=== PATIENT | male | born 1960 | race Caucasian/White ===

== ENCOUNTER 2018-02-10 01:40 | Emergency (ER) | payer SELFPAY ==
[2018-02-10] MEDS ORDERED: METHYLPREDNISOLONE 125 MG INJ ONE (01:52)
[2018-02-10] MEDS ORDERED: IPRATROPIUM BROM 0.5MG/2.5ML ONE ×2 (01:52→02:02)
[2018-02-10] MEDS ORDERED: ALBUTEROL 2.5 MG/3 ML NEB SOL ONE (01:52)
[2018-02-10] MEDS ORDERED: predniSONE 20 MG TAB ONE (02:02)
--- NOTE | 2018-02-10 04:52 | EDPHYS ---
Physician Documentation [facility] Name: Iron Haynes Age: 58 yrs Sex: Male : 1960 Arrival Date: 02/10/2018 Time: 01:40 Bed 20 Private MD: ED Physician Zohaib Gomez HPI: 02/10 04:46 This 58 yrs old Male presents to ER via Ambulatory with complaints of gs Breathing Difficulty. 04:46 The patient has shortness of breath at rest. Onset: The symptoms/episode began/occurred gs 2 day(s) ago, and became worse and became persistent. Duration: The symptoms are continuous, and are unchanged since they started. The patient's shortness of breath has no apparent modifying factors. Associated signs and symptoms: Pertinent positives: non-productive cough, Pertinent negatives: fever, hemoptysis. Severity of symptoms: At their worst the symptoms were moderate in the emergency department the symptoms are unchanged. The patient has experienced similar episodes in the past, chronically. ran out of albuterol. Historical: - Allergies: 01:52 Codeine; mg2 - Home Meds: 01:52 albuterol sulfate Oral [Active]; mg2 - PMHx: 01:52 COPD; mg2 - PSHx: 01:52 Hernia repair; mg2 - Immunization history:: Flu vaccine status is unknown. - Social history:: Smoking status: Patient/guardian denies using tobacco, Patient/guardian denies using alcohol, street drugs, IV drugs. - Ebola Screening: : No symptoms or risks identified at this time. ROS: 04:46 All other systems are negative. gs Exam: 04:46 Head/Face: Normocephalic, atraumatic. Eyes: Pupils equal round and reactive to light, gs extra-ocular motions intact. Lids and lashes normal. Conjunctiva and sclera are non-icteric and not injected. Cornea within normal limits. Periorbital areas with no swelling, redness, or edema. ENT: Nares patent. No nasal discharge, no septal abnormalities noted. Tympanic membranes are normal and external auditory canals are clear. Oropharynx with no redness, swelling, or masses, exudates, or evidence of obstruction, uvula midline. Mucous membranes moist. Neck: Trachea midline, no thyromegaly or masses palpated, and no cervical lymphadenopathy. Supple, full range of motion without nuchal rigidity, or vertebral point tenderness. No Meningismus. Chest/axilla: Normal chest wall appearance and motion. Nontender with no deformity. No lesions are appreciated. Cardiovascular: Regular rate and rhythm with a normal S1 and S2. No gallops, murmurs, or rubs. Normal PMI, no JVD. No pulse deficits. Abdomen/GI: Soft, non-tender, with normal bowel sounds. No distension or tympany. No guarding or rebound. No evidence of tenderness throughout. Back: No spinal tenderness. No costovertebral tenderness. Full range of motion. Skin: Warm, dry with normal turgor. Normal color with no rashes, no lesions, and no evidence of cellulitis. MS/ Extremity: Pulses equal, no cyanosis. Neurovascular intact. Full, normal range of motion. Neuro: Awake and alert, GCS 15, oriented to person, place, time, and situation. Cranial nerves II-XII grossly intact. Motor strength 5/5 in all extremities. Sensory grossly intact. Cerebellar exam normal. Normal gait. 04:46 Constitutional: The patient appears alert, awake. 04:46 Respiratory: mild respiratory distress is noted, Respirations: normal, no retractions, Breath sounds: rhonchi, that are mild, are heard diffusely, wheezing: that is moderate, is heard diffusely. Vital Signs: 01:53 BP 126 / 87; Pulse 87; Resp 30; Temp 97.6; Pulse Ox 95% on R/A; Weight 72.57 kg; Height mg2 6 ft. 0 in. (182.88 cm); Pain 0/10; 02:30 BP 116 / 74; Pulse 83; Resp 20; Pulse Ox 99% on Nebulizer Mask; lp1 03:30 BP 120 / 78; Pulse 87; Resp 20; Pulse Ox 96% on R/A; lp1 01:53 Body Mass Index 21.70 (72.57 kg, 182.88 cm) mg2 MDM: 01:50 Patient medically screened. gs 04:46 Differential diagnosis: Chronic Obstructive Pulmonary Disease pneumonia, Pneumothorax. Data reviewed: vital signs, nurses notes, radiologic studies. Test interpretation: by ED physician or midlevel provider: plain radiologic studies. Response to treatment: the patient's symptoms have markedly improved after treatment, and as a result, I will discharge patient, pt left before rx and instruction. 10/14 02:29 Order name: Chest Pa And Lat (2 Views) EDCO Administered Medications: 01:54 Drug: Albuterol - atroVENT (3:1) (2.5 mg - 0.5 mg) 3 ml Route: Nebulizer; mg2 03:30 Follow up: Response: Marked relief of symptoms lp1 01:54 Drug: AtroVENT Aerosol 0.5 mg Route: Inhalation; mg2 01:54 Drug: predniSONE 40 mg Route: PO; mg2 03:30 Follow up: Response: No adverse reaction lp1 Disposition: 02/10/18 04:52 Discharged to Home. Impression: Chronic obstructive pulmonary disease with (acute) exacerbation. - Condition is Stable. - Discharge Instructions: Chronic Obstructive Pulmonary Disease. - Prescriptions for Prednisone 20 mg Oral Tablet - take 1 tablet by ORAL route once daily for 5 days; 5 tablet. Albuterol Sulfate 2.5 mg /3 mL (0.083 %) Inhalation Solution for Nebulization - inhale 1 unit by NEBULIZATION route every 8 hours As needed; 1 box. Albuterol Sulfate 90 mcg/actuation - inhale 1-2 puff by INHALATION route every 4-6 hours; 1 Inhaler. - Medication Reconciliation Form, Thank You Letter, Antibiotic Education, Prescription Opioid Use form. - Follow up: Emergency Department; When: 1 - 2 days; Reason: Re-evaluation by your physician. - Problem is an acute exacerbation. - Symptoms have improved. Signatures: Dispatcher [employer] [facility] Ewa Markham RN RN lp1 Zohaib Gomez MD MD Joel Murray RN RN mg2 Corrections: (The following items were deleted from the chart) 03:25 03:18 Chest Pa And Lat (2 Views)+[email or web address] ordered. [facility] EDCO 05:04 04:52 02/10/2018 04:52 Discharged to Home. Impression: Chronic obstructive pulmonary lp1 disease with (acute) exacerbation. Condition is Stable. Forms are Medication Reconciliation Form, Thank You Letter, Antibiotic Education, Prescription Opioid Use. Follow up: Emergency Department; When: 1 - 2 days; Reason: Re-evaluation by your physician. Problem is an acute exacerbation. Symptoms have improved. gs
--- NOTE | 2018-02-10 04:52 | ER ---
Nurse's Notes [facility] Name: Iron Haynes Age: 58 yrs Sex: Male : 1960 Arrival Date: 02/10/2018 Time: 01:40 Bed 20 Private MD: Diagnosis: Chronic obstructive pulmonary disease with (acute) exacerbation Presentation: 02/10 01:50 Presenting complaint: Patient states: he has cough for 2 weeks and shortness of breath mg2 today. he ran out of medicine for nebulization at home. known COPD but not on home oxygen. Transition of care: patient was not received from another setting of care. Onset of symptoms was January 2018. Risk Assessment: Do you want to hurt yourself or someone else? Patient reports no desire to harm self or others. Initial Sepsis Screen: Does the patient meet any 2 criteria? No. Patient's initial sepsis screen is negative. Does the patient have a suspected source of infection? No. Patient's initial sepsis screen is negative. Care prior to arrival: None. 01:50 Method Of Arrival: Ambulatory mg2 01:50 Acuity: EDUARD 2 mg2 Historical: - Allergies: 01:52 Codeine; mg2 - Home Meds: 01:52 albuterol sulfate Oral [Active]; mg2 - PMHx: 01:52 COPD; mg2 - PSHx: 01:52 Hernia repair; mg2 - Immunization history:: Flu vaccine status is unknown. - Social history:: Smoking status: Patient/guardian denies using tobacco, Patient/guardian denies using alcohol, street drugs, IV drugs. - Ebola Screening: : No symptoms or risks identified at this time. Screenin:53 Abuse screen: Denies threats or abuse. Nutritional screening: No deficits noted. mg2 Tuberculosis screening: No symptoms or risk factors identified. Fall Risk None identified. Assessment: 02:33 General: Appears in no apparent distress. Behavior is calm, cooperative, appropriate lp1 for age. Pain: Denies pain. Neuro: Level of Consciousness is awake, alert, obeys commands, Oriented to person, place, time, situation. Cardiovascular: Patient's skin is warm and dry. Respiratory: Reports shortness of breath Airway is patent Respiratory effort is even, labored, Respiratory pattern is regular, Breath sounds with wheezes bilaterally. Onset: The symptoms/episode began/occurred gradually, the patient has moderate shortness of breath. GI: No signs and/or symptoms were reported involving the gastrointestinal system. : No signs and/or symptoms were reported regarding the genitourinary system. EENT: No signs and/or symptoms were reported regarding the EENT system. Derm: Skin is pink, warm \T\ dry. Musculoskeletal: Circulation, motion, and sensation intact. 02:58 Reassessment: Patient is alert, oriented x 3, equal unlabored respirations, skin lp1 warm/dry/pink. Patient states feeling better. Patient states symptoms have improved. 03:58 Reassessment: improvement to wheezing in bilateral lobes Patient states feeling better. lp1 04:45 Reassessment: Patient not in room; Patient left prior to discharge instructions. lp1 Vital Signs: 01:53 BP 126 / 87; Pulse 87; Resp 30; Temp 97.6; Pulse Ox 95% on R/A; Weight 72.57 kg; Height mg2 6 ft. 0 in. (182.88 cm); Pain 0/10; 02:30 BP 116 / 74; Pulse 83; Resp 20; Pulse Ox 99% on Nebulizer Mask; lp1 03:30 BP 120 / 78; Pulse 87; Resp 20; Pulse Ox 96% on R/A; lp1 01:53 Body Mass Index 21.70 (72.57 kg, 182.88 cm) mg2 ED Course: 01:40 Patient arrived in ED. am2 01:45 Zohaib Gomez MD is Attending Physician. gs 01:51 Triage completed. mg2 01:53 Arm band placed on. mg2 01:57 Ewa Markham, RN is Primary Nurse. lp1 02:36 Patient has correct armband on for positive identification. Pulse ox on. NIBP on. lp1 02:46 Chest Pa And Lat (2 Views) In Process Unspecified. EDMS 03:59 No provider procedures requiring assistance completed. Patient did not have IV access lp1 during this emergency room visit. Administered Medications: 01:54 Drug: Albuterol - atroVENT (3:1) (2.5 mg - 0.5 mg) 3 ml Route: Nebulizer; mg2 03:30 Follow up: Response: Marked relief of symptoms lp1 01:54 Drug: AtroVENT Aerosol 0.5 mg Route: Inhalation; mg2 01:54 Drug: predniSONE 40 mg Route: PO; mg2 03:30 Follow up: Response: No adverse reaction lp1 Outcome: 04:52 Discharge ordered by . ani 05:04 Discharged to home lp1 05:04 Condition: good 05:04 Discharge instructions given to Patient left prior to discharge instructions 05:04 Patient left the ED. lp1 Signatures: Dispatcher [employer] Ewa Vazquez RN RN lp1 aMy Garcia am2 Zohaib Gomez MD MD gs Gardose, Michele, RN RN mg2 Corrections: (The following items were deleted from the chart) 02:03 01:53 BP 126 / 87; Pulse 87bpm; Resp 30bpm; Pulse Ox 95% RA; Temp 97.6F; Pain 0/10; mg2 mg2 03:59 02:33 General: Appears in no apparent distress. lp1 lp1
--- NOTE | 2018-02-10 10:32 | RAD REPORT ---
EXAM DESCRIPTION: RAD - Chest Pa And Lat (2 Views) - 02/10/2018 2:48 am CLINICAL HISTORY: COUGH Chest pain. COMPARISON: No comparisons FINDINGS: The lungs are mildly emphysematous but clear. The heart is normal in size. No displaced fr actures. IMPRESSION: Mild COPD.
== END 2018-02-10 05:04 | disposition home or self-care (01) ==
LOC: ER 01:40
DX: J44.1 Chronic obstructive pulmonary disease with (acute) exacerbation (principal); Z88.5 Allergy status to narcotic agent
CPT/HCPCS: 71046; 94640; 99284; J2930; J7512

== ENCOUNTER 2018-03-23 22:44 | Emergency (ER) | payer SELFPAY ==
[2018-03-23] MEDS ORDERED: ALBUTEROL 2.5 MG/3 ML NEB SOL ONE (23:12)
[2018-03-23] MEDS ORDERED: METHYLPREDNISOLONE 125 MG INJ ONE (23:12)
[2018-03-23] MEDS ORDERED: AZITHROMYCIN 500 MG/250 ML BAG ONE (23:13)
[2018-03-23] MEDS ORDERED: LEVALBUTEROL 1.25 MG/3 ML NEB ONE (23:13)
[2018-03-23 23:47] LABS: Absolute Lymphocytes (CBC) 1.6 K/uL (0.7-4.9); Absolute Monocytes 0.5 K/uL (0.1-1.3); Absolute Neutrophil 4.1 K/uL (1.8-8.0); Basophils % 0.3 % (0-1.3); Hematocrit 45.2 % (39.6-49.0); Lymphocytes % 25.4 % (15.3-44.8); MCH 31.5 pg (27.0-35.0); MCV 91.5 fL (80-100); Monocytes % 7.7 % (3.3-12.3); RBC Red Blood Cell Count 4.94 M/uL (4.33-5.43)
[2018-03-23 23:52] LABS: Protime INR 0.97
[2018-03-24 00:02] LABS: ALT/SGPT 18 U/L (12-78); AST/SGOT 13 U/L (15-37); Albumin 3.3 g/dL (3.4-5.0); Alkaline Phosphatase 91 U/L (45-117); BUN Blood Urea Nitrogen 9 mg/dL (7-18); Bicarbonate 29 mmol/L (21-32); Bilirubin Direct 0.1 mg/dL (0-0.2); Bilirubin Total 0.3 mg/dL (0.2-1.0); CKMB Creatine Kinase MB 1.5 ng/mL (0.3-3.6); Creatine Phosphokinase 60 U/L (39-308); Glucose Level 135 mg/dL (74-106); Lipase 124 U/L (73-393); Magnesium 2.4 mg/dL (1.8-2.4); NT PRO-BNP 58 pg/mL (<125); Potassium 4.1 mmol/L (3.5-5.1); Protein, Total 6.5 g/dL (6.4-8.2); Sodium Level 138 mmol/L (136-145); Troponin (Emerg Dept Use Only) < 0.02 ng/mL (0.0-0.045)
[2018-03-24 00:15] LABS: Blood Morphology Comment NOT SEEN (NOT SEEN); Platelet Estimate ADEQ
--- NOTE | 2018-03-24 01:06 | ER ---
Nurse's Notes [facility] Name: Iron Haynes Age: 58 yrs Sex: Male : 1960 Arrival Date: 03/23/2018 Time: 22:45 Bed 15 Private MD: None, None Diagnosis: Chronic obstructive pulmonary disease with acute lower respiratory infection Presentation: 03/23 22:50 Presenting complaint: Patient states: shortness of breath at rest and on exertion since cc3 3 days. Transition of care: patient was not received from another setting of care. Onset of symptoms was March 21, 2018. Risk Assessment: Do you want to hurt yourself or someone else? Patient reports no desire to harm self or others. Initial Sepsis Screen: Does the patient meet any 2 criteria? No. Patient's initial sepsis screen is negative. Does the patient have a suspected source of infection? No. Patient's initial sepsis screen is negative. Care prior to arrival: None. 22:50 Method Of Arrival: Ambulatory cc3 22:50 Acuity: EDUARD 3 cc3 Triage Assessment: 22:50 General: Appears in no apparent distress. uncomfortable, Behavior is calm, cooperative, cc3 appropriate for age. Pain: Denies pain. EENT: No signs and/or symptoms were reported regarding the EENT system. Neuro: Level of Consciousness is awake, alert, obeys commands, Oriented to person, place, time, situation, Appropriate for age. Cardiovascular: Denies chest pain. Respiratory: Reports shortness of breath at rest on exertion since 3 days Onset: The symptoms/episode began/occurred 3 days. GI: Abdomen is round non-distended. : No signs and/or symptoms were reported regarding the genitourinary system. Derm: No signs and/or symptoms reported regarding the dermatologic system. Musculoskeletal: Circulation, motion, and sensation intact. Range of motion: intact in all extremities. Historical: - Allergies: 22:50 Codeine; cc3 - Home Meds: 22:50 albuterol sulfate Oral [Active]; cc3 - PMHx: 22:50 COPD; cc3 - PSHx: 22:50 Hernia repair; cc3 - Immunization history:: Adult Immunizations not up to date. - Social history:: Smoking status: Patient uses tobacco products, unknown amount Patient/guardian denies using alcohol, street drugs, The patient lives with family. - Ebola Screening: : No symptoms or risks identified at this time. - Family history:: No immediate family members are acutely ill. - Hospitalizations: : The patient was recently seen at [facility]. Screenin:30 Abuse screen: Denies threats or abuse. Nutritional screening: No deficits noted. ea Tuberculosis screening: No symptoms or risk factors identified. Fall Risk None identified. Assessment: 23:02 General: Appears uncomfortable, Behavior is calm, cooperative, appropriate for age. ea Pain: Denies pain. Neuro: Level of Consciousness is awake, alert, obeys commands, Oriented to person, place, time, situation. Cardiovascular: Heart tones S1 S2 present Patient's skin is warm and dry. Respiratory: Airway is patent Respiratory effort is even, labored, Respiratory pattern is symmetrical, tachypnea Breath sounds are coarse Breath sounds with wheezes bilaterally. GI: Abdomen is non-distended. Derm: Skin is pink, warm \T\ dry. 03/24 00:00 Reassessment: Patient and/or family updated on plan of care and expected duration. Pain ea level reassessed. Patient is alert, oriented x 3, equal unlabored respirations, skin warm/dry/pink. Patient states symptoms have improved. 01:12 Reassessment: Patient and/or family updated on plan of care and expected duration. Pain ea level reassessed. Patient is alert, oriented x 3, equal unlabored respirations, skin warm/dry/pink. Discharge instructions given to patient, verbalized the understanding of instruction Patient states feeling better. Patient states symptoms have improved. Vital Signs: 03/23 22:50 BP 127 / 90; Pulse 103; Resp 23 S; Temp 97.8(O); Pulse Ox 96% on R/A; Weight 72.57 kg cc3 (R); Height 6 ft. (182.88 cm) (R); 23:00 BP 107 / 79; Pulse 98; Resp 18; Pulse Ox 99% ; ea 03/24 00:50 BP 110 / 80; Pulse 80; Resp 18; Pulse Ox 99% ; ea 03/23 22:50 Body Mass Index 21.70 (72.57 kg, 182.88 cm) cc3 ED Course: 03/23 22:45 Patient arrived in ED. dl4 22:45 None, None is Private Physician. dl4 22:48 Vincenzo Abrams MD is Attending Physician. ma2 22:57 Triage completed. cc3 23:02 Reema Wright, RN is Primary Nurse. ea 23:02 Patient has correct armband on for positive identification. Bed in low position. Call ea light in reach. Side rails up X 1. 23:02 Arm band placed on right wrist. Patient placed in an exam room, on a stretcher, on ea pulse oximetry. 23:20 X-ray completed. Portable x-ray completed in exam room. Patient tolerated procedure sg4 well. 23:21 XRAY CXR (1 view) In Process Unspecified. EDMS 23:30 Inserted saline lock: 22 gauge in right forearm, using aseptic technique. Blood ea collected. 03/24 00:31 EKG done, by ED staff, reviewed by Vincenzo Abrams MD. ds4 01:13 No provider procedures requiring assistance completed. IV discontinued, intact, ea bleeding controlled, No redness/swelling at site. Pressure dressing applied. Administered Medications: 03/23 23:09 Drug: Xopenex 1.25 mg Route: Inhalation; cc3 23:47 Follow up: Response: No adverse reaction; Wheezing diminished ea 23:10 Drug: Albuterol 2.5 mg Route: Inhalation; cc3 23:15 Drug: Zithromax 500 mg Route: IVPB; Infused Over: 1 hrs; Site: right forearm; ea 03/24 00:30 Follow up: Response: No adverse reaction; IV Status: Completed infusion ea 03/23 23:16 Drug: SOLU-Medrol 125 mg Route: IVP; Site: right forearm; ea 23:47 Follow up: Response: No adverse reaction ea Outcome: 03/24 01:05 Discharge ordered by . ma2 01:14 Discharged to home ambulatory. ea 01:14 Condition: improved 01:14 Discharge instructions given to patient, Instructed on discharge instructions, follow up and referral plans. medication usage, Demonstrated understanding of instructions, follow-up care, medications, Prescriptions given X 4. 01:15 Patient left the ED. ea Signatures: Dispatcher [employer] EDMS Castro Diggs ds4 Reema Wright, RN Vincenzo Christy ea, MD MD ma2 Yesenia Anna cc3 Phylicia Stevenson sg4 Leida, Darius dl4
--- NOTE | 2018-03-24 01:06 | EDPHYS ---
Physician Documentation [facility] Name: Iron Haynes Age: 58 yrs Sex: Male : 1960 Arrival Date: 03/23/2018 Time: 22:45 Bed 15 Private MD: None, None ED Physician Vincenzo Abrams HPI: 03/23 22:58 This 58 yrs old Male presents to ER via Ambulatory with complaints of ma2 Shortness Of Breath. 22:58 The patient has shortness of breath at rest. Onset: The symptoms/episode began/occurred ma2 gradually, 3 day(s) ago. Duration: The symptoms are continuous. Associated signs and symptoms: Pertinent positives: productive cough, Pertinent negatives: chest pain, non-productive cough, diaphoresis, fever, hemoptysis, visual changes. Severity of symptoms: At their worst the symptoms were moderate in the emergency department the symptoms. The patient has experienced similar episodes in the past. Historical: - Allergies: 22:50 Codeine; cc3 - Home Meds: 22:50 albuterol sulfate Oral [Active]; cc3 - PMHx: 22:50 COPD; cc3 - PSHx: 22:50 Hernia repair; cc3 - Immunization history:: Adult Immunizations not up to date. - Social history:: Smoking status: Patient uses tobacco products, unknown amount Patient/guardian denies using alcohol, street drugs, The patient lives with family. - Ebola Screening: : No symptoms or risks identified at this time. - Family history:: No immediate family members are acutely ill. - Hospitalizations: : The patient was recently seen at [facility]. ROS: 22:58 Constitutional: Negative for fever, chills, and weight loss, ENT: Negative for injury, ma2 pain, and discharge, Cardiovascular: Negative for chest pain, palpitations, and edema, Back: Negative for injury and pain, MS/Extremity: Negative for injury and deformity. 22:58 Respiratory: Positive for cough, dyspnea on exertion, Negative for hemoptysis, pleurisy, sputum production, acute changes. 22:58 All other systems are negative. Exam: 22:58 Constitutional: This is a well developed, well nourished patient who is awake, alert, ma2 and in no acute distress. Eyes: Pupils equal round and reactive to light, extra-ocular motions intact. Lids and lashes normal. Conjunctiva and sclera are non-icteric and not injected. Cornea within normal limits. Periorbital areas with no swelling, redness, or edema. Neck: Trachea midline, no thyromegaly or masses palpated, and no cervical lymphadenopathy. Supple, full range of motion without nuchal rigidity, or vertebral point tenderness. No Meningismus. Chest/axilla: Normal chest wall appearance and motion. Nontender with no deformity. No lesions are appreciated. Cardiovascular: Regular rate and rhythm with a normal S1 and S2. No gallops, murmurs, or rubs. Normal PMI, no JVD. No pulse deficits. Abdomen/GI: Soft, non-tender, with normal bowel sounds. No distension or tympany. No guarding or rebound. No evidence of tenderness throughout. MS/ Extremity: Pulses equal, no cyanosis. Neurovascular intact. Full, normal range of motion. Neuro: Awake and alert, GCS 15, oriented to person, place, time, and situation. Cranial nerves II-XII grossly intact. Motor strength 5/5 in all extremities. Sensory grossly intact. Cerebellar exam normal. Normal gait. 22:58 Respiratory: mild respiratory distress is noted, Respirations: labored breathing, Breath sounds: wheezing: expiratory is heard diffusely. Vital Signs: 22:50 BP 127 / 90; Pulse 103; Resp 23 S; Temp 97.8(O); Pulse Ox 96% on R/A; Weight 72.57 kg cc3 (R); Height 6 ft. (182.88 cm) (R); 23:00 BP 107 / 79; Pulse 98; Resp 18; Pulse Ox 99% ; ea 03/24 00:50 BP 110 / 80; Pulse 80; Resp 18; Pulse Ox 99% ; ea 03/23 22:50 Body Mass Index 21.70 (72.57 kg, 182.88 cm) cc3 MDM: 03/23 22:48 Patient medically screened. ma2 22:58 Differential diagnosis: Anemia Anxiety Reaction asthma, Bronchitis pneumonia. nm2 03/24 01:04 Data reviewed: vital signs, nurses notes, EKG, radiologic studies. Counseling: I had a ma2 detailed discussion with the patient and/or guardian regarding: the historical points, exam findings, and any diagnostic results supporting the discharge/admit diagnosis, the presence of at least one elevated blood pressure reading (>120/80) during this emergency department visit, the need for outpatient follow up. Response to treatment: the patient's symptoms have resolved after treatment. 03/23 22:58 Order name: BMP; Complete Time: 00:22 2 03/23 22:58 Order name: CBC with Diff; Complete Time: 00:22 ma2 03/23 22:58 Order name: Ckmb; Complete Time: 00:22 ma2 03/23 22:58 Order name: CPK; Complete Time: 00:22 2 03/23 22:58 Order name: Hepatic Function; Complete Time: 00:22 ma2 03/23 22:58 Order name: Lipase; Complete Time: 00:22 ma2 03/23 22:58 Order name: XRAY CXR (1 view) nm03/23 22:58 Order name: Magnesium; Complete Time: 00:22 ma2 03/23 22:58 Order name: NT PRO-BNP; Complete Time: 00:22 ma2 03/23 22:58 Order name: PT-INR; Complete Time: 00:22 ma2 03/23 22:58 Order name: Ptt, Activated; Complete Time: 00:22 ma2 03/23 22:58 Order name: Troponin (emerg Dept Use Only); Complete Time: 00:22 2 03/23 23:51 Order name: Manual Differential; Complete Time: 00:22 EDMS 03/23 22:58 Order name: EKG; Complete Time: 22:59 ma2 03/23 22:58 Order name: Cardiac monitoring; Complete Time: 00:12 ma2 03/23 22:58 Order name: EKG - Nurse/Tech; Complete Time: 00:31 ma2 03/23 22:58 Order name: IV Saline Lock; Complete Time: 00:12 ma2 03/23 22:58 Order name: Labs collected and sent; Complete Time: 00:12 ma2 03/23 22:58 Order name: O2 Per Protocol; Complete Time: 00:12 2 03/23 22:58 Order name: O2 Sat Monitoring; Complete Time: 00:12 ma2 Administered Medications: 03/23 23:09 Drug: Xopenex 1.25 mg Route: Inhalation; cc3 23:47 Follow up: Response: No adverse reaction; Wheezing diminished ea 23:10 Drug: Albuterol 2.5 mg Route: Inhalation; cc3 23:15 Drug: Zithromax 500 mg Route: IVPB; Infused Over: 1 hrs; Site: right forearm; ea 03/24 00:30 Follow up: Response: No adverse reaction; IV Status: Completed infusion ea 03/23 23:16 Drug: SOLU-Medrol 125 mg Route: IVP; Site: right forearm; ea 23:47 Follow up: Response: No adverse reaction ea Disposition: 03/24/18 01:05 Discharged to Home. Impression: Chronic obstructive pulmonary disease with acute lower respiratory infection. - Condition is Stable. - Discharge Instructions: Chronic Obstructive Pulmonary Disease. - Prescriptions for Albuterol Sulfate 2.5 mg /3 mL (0.083 %) Inhalation Solution for Nebulization - inhale 1 unit by NEBULIZATION route every 8 hours As needed; 1 box. Zithromax Z- Piyush 250 mg Oral Tablet - take 1 tablet by ORAL route as directed for 5 days Day 1 - take two (2) tablets one time. Day 2, 3, 4 , 5 take one (1) tablet once daily.; 6 tablet. Prednisone 20 mg Oral Tablet - take 2 tablet by ORAL route once daily for 5 days; 10 tablet. Albuterol Sulfate 90 mcg/actuation - inhale 1-2 puff by INHALATION route every 4-6 hours; 1 Inhaler. - Medication Reconciliation Form, Thank You Letter, Antibiotic Education, Prescription Opioid Use form. - Follow up: Private Physician; When: Tomorrow; Reason: Continuance of care. Signatures: Dispatcher [employer] Reema Lagunas RN RN ea Alzahri, Mohammad, MD MD ma2 Yesenia Anna cc3 Corrections: (The following items were deleted from the chart) 03/24 01:15 01:05 03/24/2018 01:05 Discharged to Home. Impression: Chronic obstructive pulmonary ea disease with acute lower respiratory infection. Condition is Stable. Forms are Medication Reconciliation Form, Thank You Letter, Antibiotic Education, Prescription Opioid Use. Follow up: Private Physician; When: Tomorrow; Reason: Continuance of care. ma2
--- NOTE | 2018-03-24 06:08 | EKG ---
Test Date: 2018-03-24 Test Time: 00:25:41 Primary Care Physician: DINORA MEASUREMENT RESULTS: Intervals: Rate: 90 TN: 142 QRSD: 86 QT: 362 QTc: 442 [place]: P: 80 TN: 142 QRS: 97 T: 61 INTERPRETIVE STATEMENTS: Sinus rhythm with fusion complexes Rightward axis Borderline ECG No previous ECG available for comparison Electronically Signed On 03-24-18 06:07:48 MENTAL HEALTH PROGRAM SPECIALIST by Agus Beckman
--- NOTE | 2018-03-24 13:59 | RAD REPORT ---
EXAM DESCRIPTION: RAD - Chest Single View - 03/23/2018 11:27 pm CLINICAL HISTORY: COPD Chest pain. COMPARISON: Chest Pa And Lat (2 Views) dated 02/10/2018 FINDINGS: Portable technique limits examination quality. The lungs are grossly clear. The heart is normal in size. No displaced fractures. IMPRESSION: No acute intrathoracic process suspected.
== END 2018-03-24 01:15 | disposition home or self-care (01) ==
LOC: ER 22:44
DX: J44.0 Chronic obstructive pulmonary disease with (acute) lower respiratory infection (principal); Z72.0 Tobacco use
CPT/HCPCS: 36415; 71045; 80048; 80076; 82550; 82553; 83690; 83735; 83880; 84484; 85025; 85610; 85730; 93005; 96365; 96375; 99284; J0456; J2930

== ENCOUNTER 2018-04-21 19:14 | Emergency (ER) | payer SELFPAY ==
[2018-04-21] MEDS ORDERED: LEVALBUTEROL 1.25 MG/3 ML NEB ONE ×2 (19:46→21:20)
[2018-04-21] MEDS ORDERED: IPRATROPIUM BROM 0.5MG/2.5ML ONE (19:46)
[2018-04-21] MEDS ORDERED: NA CHLORIDE 0.9% 1,000 ML ONE (19:56)
[2018-04-21] MEDS ORDERED: METHYLPREDNISOLONE 125 MG INJ ONE (19:56)
[2018-04-21 20:13] LABS: Absolute Lymphocytes (CBC) 0.5 K/uL (0.7-4.9); Absolute Monocytes 0.3 K/uL (0.1-1.3); Absolute Neutrophil 8.1 K/uL (1.8-8.0); Basophils % 0.9 % (0-1.3); Hematocrit 43.6 % (39.6-49.0); Lymphocytes % 5.5 % (15.3-44.8); MPV 7.9 fL (7.6-11.3); Monocytes % 3.7 % (3.3-12.3); RBC Red Blood Cell Count 4.76 M/uL (4.33-5.43)
[2018-04-21 20:21] LABS: Protime INR 1.03
[2018-04-21 20:33] LABS: ALT/SGPT 13 U/L (12-78); AST/SGOT 12 U/L (15-37); Albumin 3.6 g/dL (3.4-5.0); Alkaline Phosphatase 97 U/L (45-117); BUN Blood Urea Nitrogen 6 mg/dL (7-18); Bicarbonate 26 mmol/L (21-32); Bilirubin Direct 0.1 mg/dL (0-0.2); Bilirubin Total 0.5 mg/dL (0.2-1.0); Glucose Level 118 mg/dL (74-106); Magnesium 2.2 mg/dL (1.8-2.4); NT PRO-BNP 57 pg/mL (<125); Potassium 4.1 mmol/L (3.5-5.1); Protein, Total 6.9 g/dL (6.4-8.2); Sodium Level 135 mmol/L (136-145); Troponin (Emerg Dept Use Only) < 0.02 ng/mL (0.0-0.045)
--- NOTE | 2018-04-21 20:34 | RAD REPORT ---
EXAM DESCRIPTION: RAD - Chest Single View - 04/21/2018 8:24 pm CLINICAL HISTORY: COPD;Dyspnea Chest pain. COMPARISON: Chest Single View dated 03/23/2018; Chest Pa And Lat (2 Views) dated 02/10/2018 FINDINGS: Portable technique limits examination quality. The lungs are grossly clear. The heart is normal in size. No displaced fractures. IMPRESSION: No acute intrathoracic process suspected.
--- NOTE | 2018-04-21 22:23 | ER ---
Nurse's Notes [facility] Name: Iron Haynes Age: 58 yrs Sex: Male : 1960 Arrival Date: 04/21/2018 Time: 19:15 Bed 4 Private MD: Neo Morales S Diagnosis: Acute exacerbation COPD Presentation: 04/21 19:33 Presenting complaint: Patient states: I have COPD and I am out of my medicine, I have la1 been having very bad SOB for a few hours now. Transition of care: patient was not received from another setting of care. Onset of symptoms was April 21, 2018. Risk Assessment: Do you want to hurt yourself or someone else? Patient reports no desire to harm self or others. Initial Sepsis Screen: Does the patient meet any 2 criteria? No. Patient's initial sepsis screen is negative. Does the patient have a suspected source of infection? No. Patient's initial sepsis screen is negative. Care prior to arrival: None. 19:33 Method Of Arrival: Ambulatory la1 19:33 Acuity: EDUARD 2 la1 Historical: - Allergies: 19:34 Codeine; la1 - PMHx: 19:34 COPD; la1 - Immunization history:: Adult Immunizations up to date. - Social history:: Smoking status: Patient uses tobacco products, denies chronic smoking, but will smoke occasionally. - Ebola Screening: : No symptoms or risks identified at this time. Screenin:42 Abuse screen: Denies threats or abuse. Nutritional screening: No deficits noted. ea Tuberculosis screening: No symptoms or risk factors identified. Fall Risk None identified. Assessment: 19:42 General: Appears uncomfortable, Behavior is calm, cooperative, appropriate for age. ea Pain: Denies pain. Neuro: Level of Consciousness is awake, alert, obeys commands, Oriented to person, place, time, situation. Cardiovascular: Heart tones S1 S2 present. Respiratory: Airway is patent Respiratory effort is labored, Respiratory pattern is tachypnea Breath sounds are coarse bilaterally. Breath sounds with wheezes bilaterally. GI: No signs and/or symptoms were reported involving the gastrointestinal system. : No signs and/or symptoms were reported regarding the genitourinary system. Derm: Skin is dry, Skin is normal, Skin temperature is warm. 19:50 Reassessment: Patient and/or family updated on plan of care and expected duration. Pain ea level reassessed. Respiratory at bedside, pt refused ABG blood draw, physician notified. 19:59 Reassessment: Patient and/or family updated on plan of care and expected duration. Pain ea level reassessed. Patient is alert, oriented x 3, equal unlabored respirations, skin warm/dry/pink. Patient states symptoms have improved. 20:50 Reassessment: Patient and/or family updated on plan of care and expected duration. Pain ea level reassessed. Patient is alert, oriented x 3, equal unlabored respirations, skin warm/dry/pink. Patient states feeling better. Patient states symptoms have improved. 21:57 Reassessment: Patient and/or family updated on plan of care and expected duration. Pain ea level reassessed. Patient is alert, oriented x 3, equal unlabored respirations, skin warm/dry/pink. Patient states feeling better. Patient states symptoms have improved. 22:32 Reassessment: Patient and/or family updated on plan of care and expected duration. Pain ea level reassessed. Patient is alert, oriented x 3, equal unlabored respirations, skin warm/dry/pink. Discharge instruction given to patient, verbalized the understanding of isntruction Patient states feeling better. Patient states symptoms have improved. Vital Signs: 19:34 BP 118 / 71; Pulse 137; Resp 26; Temp 98.6; Pulse Ox 92% on R/A; Weight 68.04 kg; la1 Height 6 ft. 0 in. (182.88 cm); 19:40 BP 124 / 93; Pulse 111; Resp 21; Pulse Ox 96% on Nebulizer Mask; ea 21:47 BP 100 / 66; Pulse 111; Resp 15; Pulse Ox 98% on Nebulizer Mask; ea 22:33 BP 105 / 62; Pulse 100; Resp 19; Temp 98.7; Pulse Ox 99% on R/A; ea 19:34 Body Mass Index 20.34 (68.04 kg, 182.88 cm) la1 ED Course: 19:15 Patient arrived in ED. am2 19:15 Neo Morales MD is Private Physician. am2 19:33 Triage completed. la1 19:34 Arm band placed on left wrist. la1 19:37 Reema Wright, ALMA is Primary Nurse. ea 19:40 Juan Carlos Durant MD is Attending Physician. pkl 19:42 Patient has correct armband on for positive identification. Bed in low position. Call ea light in reach. Side rails up X 1. 19:42 Inserted saline lock: 18 gauge in left antecubital area, using aseptic technique. Blood jd3 collected. placed by [employer]. 20:21 X-ray completed. Portable x-ray completed in exam room. Patient tolerated procedure la2 well. 20:23 XRAY Chest (1 view) In Process Unspecified. EDMS 22:20 Neo Morales MD is Referral Physician. pkl 22:38 IV discontinued, intact, bleeding controlled, No redness/swelling at site. Pressure ea dressing applied. 22:40 No provider procedures requiring assistance completed. ea Administered Medications: 19:40 Drug: Xopenex (3) 1.25 mg Route: Inhalation; fc 19:40 Drug: AtroVENT Aerosol 0.5 mg Route: Inhalation; fc 19:52 Drug: NS 0.9% 1000 ml Route: IV; Rate: 100 ml/hr; Site: left antecubital; jd3 22:42 Follow up: Response: No adverse reaction; IV Status: Completed infusion; IV Intake: ea 300ml 19:52 Drug: SOLU-Medrol 125 mg Route: IVP; Site: left antecubital; jd3 20:59 Follow up: Response: No adverse reaction ea 21:44 Drug: Xopenex 1.25 mg Route: Inhalation; ea 21:59 Follow up: Response: No adverse reaction ea 21:59 Follow up: Response: Marked relief of symptoms ea Intake: 22:42 IV: 300ml; Total: 300ml. ea Outcome: 22:21 Discharge ordered by . pkl 22:41 Discharged to home ambulatory. ea 22:41 Condition: improved 22:41 Discharge instructions given to patient, Instructed on discharge instructions, follow up and referral plans. medication usage, Demonstrated understanding of instructions, follow-up care, medications, Prescriptions given X 2. 22:41 Patient left the ED. ea Signatures: Dispatcher [employer] EDJuan Carlos Zambrano MD MD pkl Chretien, Felicia, RN RN fc Attema, Lee, RN RN la1 May Garcia amReema Day RN RN Sherita Reeves la2 Peterson, Kiran, RN RN jd3
--- NOTE | 2018-04-21 22:23 | EDPHYS ---
Physician Documentation [facility] Name: Iron Haynes Age: 58 yrs Sex: Male : 1960 Arrival Date: 04/21/2018 Time: 19:15 Bed 4 Private MD: Neo Morales S ED Physician Juan Carlos Durant HPI: 04/21 19:44 This 58 yrs old Patient Declined Male presents to ER via Ambulatory with complaints of pkl Breathing Difficulty. 19:44 The patient has shortness of breath at rest. Onset: The symptoms/episode began/occurred pkl yesterday. Patient said he is out of his nebulizer solutions yesterday. Historical: - Allergies: 19:34 Codeine; la1 - PMHx: 19:34 COPD; la1 - Immunization history:: Adult Immunizations up to date. - Social history:: Smoking status: Patient uses tobacco products, denies chronic smoking, but will smoke occasionally. - Ebola Screening: : No symptoms or risks identified at this time. ROS: 19:46 Eyes: Negative for injury, pain, redness, and discharge, ENT: Negative for injury, pkl pain, and discharge, Neck: Negative for injury, pain, and swelling, Cardiovascular: Negative for chest pain, palpitations, and edema. 19:46 Respiratory: Positive for shortness of breath, wheezing. 19:46 Abdomen/GI: Negative for abdominal pain, nausea, vomiting, and diarrhea. 19:46 Back: Negative for acute changes. 19:46 : Negative for urinary symptoms. 19:46 MS/extremity: Negative for acute changes. 19:46 Skin: Negative for rash. 19:46 Neuro: Negative for altered mental status. Exam: 19:46 Head/Face: Normocephalic, atraumatic. Eyes: Pupils equal round and reactive to light, pkl extra-ocular motions intact. Lids and lashes normal. Conjunctiva and sclera are non-icteric and not injected. Cornea within normal limits. Periorbital areas with no swelling, redness, or edema. ENT: Nares patent. No nasal discharge, no septal abnormalities noted. Tympanic membranes are normal and external auditory canals are clear. Oropharynx with no redness, swelling, or masses, exudates, or evidence of obstruction, uvula midline. Mucous membranes moist. Neck: Trachea midline, no thyromegaly or masses palpated, and no cervical lymphadenopathy. Supple, full range of motion without nuchal rigidity, or vertebral point tenderness. No Meningismus. Chest/axilla: Normal chest wall appearance and motion. Nontender with no deformity. No lesions are appreciated. Cardiovascular: Regular rate and rhythm with a normal S1 and S2. No gallops, murmurs, or rubs. Normal PMI, no JVD. No pulse deficits. Abdomen/GI: Soft, non-tender, with normal bowel sounds. No distension or tympany. No guarding or rebound. No evidence of tenderness throughout. 19:46 Respiratory: mild respiratory distress is noted, Respirations: labored breathing, that is mild, Breath sounds: bronchial sounds, that are moderate, are scattered, rhonchi, that are moderate, are scattered. 19:46 Abdomen/GI: Exam negative for acute changes. 19:46 Back: Exam negative for acute changes. 19:46 : Exam negative for acute changes. 19:46 Musculoskeletal/extremity: Exam is negative for acute changes. 19:46 Skin: Exam negative for rash. 19:46 Neuro: Orientation: is normal, Mentation: is normal, Cranial nerves: grossly normal, Motor: is normal. Vital Signs: 19:34 BP 118 / 71; Pulse 137; Resp 26; Temp 98.6; Pulse Ox 92% on R/A; Weight 68.04 kg; la1 Height 6 ft. 0 in. (182.88 cm); 19:40 BP 124 / 93; Pulse 111; Resp 21; Pulse Ox 96% on Nebulizer Mask; ea 21:47 BP 100 / 66; Pulse 111; Resp 15; Pulse Ox 98% on Nebulizer Mask; ea 22:33 BP 105 / 62; Pulse 100; Resp 19; Temp 98.7; Pulse Ox 99% on R/A; ea 19:34 Body Mass Index 20.34 (68.04 kg, 182.88 cm) la1 MDM: 22:19 Data reviewed: vital signs, lab test result(s), EKG, radiologic studies, plain films. [facility] ED course: Patient much better. Want to go home. 22:21 Patient medically screened. [facility] 04/21 19:43 Order name: Basic Metabolic Panel; Complete Time: 20:56 [facility] 04/21 19:43 Order name: CBC with Diff; Complete Time: 20:56 [facility] 04/21 19:43 Order name: LFT's; Complete Time: 20:56 pkl 04/21 19:43 Order name: Magnesium; Complete Time: 20:56 pkl 04/21 19:43 Order name: NT PRO-BNP; Complete Time: 20:56 pkl 04/21 19:43 Order name: PT-INR; Complete Time: 20:56 pkl 04/21 19:43 Order name: Troponin (emerg Dept Use Only); Complete Time: 20:56 pkl 04/21 19:43 Order name: XRAY Chest (1 view); Complete Time: 20:56 pkl 04/21 19:43 Order name: D-Dimer; Complete Time: 20:56 pkl 04/21 19:43 Order name: Blood Culture Adult (2) pkl 04/21 19:43 Order name: Lactate; Complete Time: 20:56 pkl 04/21 19:43 Order name: Procalcitonin; Complete Time: 20:56 pkl 04/21 19:43 Order name: EKG; Complete Time: 19:44 pkl 04/21 19:43 Order name: Cardiac monitoring; Complete Time: 19:54 pkl 04/21 19:43 Order name: EKG - Nurse/Tech; Complete Time: 19:54 pkl 04/21 19:43 Order name: IV Saline Lock; Complete Time: 19:53 pkl 04/21 19:43 Order name: Labs collected and sent; Complete Time: 19:53 pkl 04/21 19:43 Order name: O2 Per Protocol; Complete Time: 19:53 pkl 04/21 19:43 Order name: O2 Sat Monitoring; Complete Time: 19:53 pkl Administered Medications: 19:40 Drug: Xopenex (3) 1.25 mg Route: Inhalation; fc 19:40 Drug: AtroVENT Aerosol 0.5 mg Route: Inhalation; fc 19:52 Drug: NS 0.9% 1000 ml Route: IV; Rate: 100 ml/hr; Site: left antecubital; jd3 22:42 Follow up: Response: No adverse reaction; IV Status: Completed infusion; IV Intake: ea 300ml 19:52 Drug: SOLU-Medrol 125 mg Route: IVP; Site: left antecubital; jd3 20:59 Follow up: Response: No adverse reaction ea 21:44 Drug: Xopenex 1.25 mg Route: Inhalation; ea 21:59 Follow up: Response: No adverse reaction ea 21:59 Follow up: Response: Marked relief of symptoms ea Disposition: 04/21/18 22:21 Discharged to Home. Impression: Acute exacerbation COPD. - Condition is Stable. - Discharge Instructions: Chronic Obstructive Pulmonary Disease Exacerbation, [id number]. - Prescriptions for Albuterol Sulfate 2.5 mg /3 mL (0.083 %) Inhalation Solution for Nebulization - inhale 1 unit by NEBULIZATION route every 8 hours As needed; 1 box. - Medication Reconciliation Form, Thank You Letter, Antibiotic Education, Prescription Opioid Use form. - Follow up: Neo Morales MD; When: 2 - 3 days; Reason: Re-evaluation by your physician. - Problem is new. - Symptoms have improved. Signatures: Dispatcher [employer] EDMS Juan Carlos Durant MD MD pkl Chretien, Felicia RN Zach Wilhelm RN RN la1 Reema Wright RN RN ea Davies, Jonathon RN RN jd3 Corrections: (The following items were deleted from the chart) 22:41 22:21 04/21/2018 22:21 Discharged to Home. Impression: Acute exacerbation COPD. ea Condition is Stable. Forms are Medication Reconciliation Form, Thank You Letter, Antibiotic Education, Prescription Opioid Use. Follow up: Neo Morales; When: 2 - 3 days; Reason: Re-evaluation by your physician. Problem is new. Symptoms have improved. pkl
--- NOTE | 2018-04-22 07:55 | EKG ---
Test Date: 2018-04-21 Test Time: 19:49:12 Soil Checker: SHONDA MEASUREMENT RESULTS: Intervals: Rate: 116 [place]: 142 QRSD: 84 QT: 318 QTc: 442 [place]: P: 83 [place]: 142 QRS: 96 T: 73 INTERPRETIVE STATEMENTS: Sinus tachycardia Rightward axis Borderline ECG Compared to ECG 03/24/2018 00:25:41 Sinus rhythm no longer present Fusion complex(es) no longer present Electronically Signed On 04-22-18 07:53:59 JUVENILE OFFICER by Edgar Graham
== END 2018-04-21 22:41 | disposition home or self-care (01) ==
LOC: ER 19:14
DX: J44.1 Chronic obstructive pulmonary disease with (acute) exacerbation (principal); Z72.0 Tobacco use
CPT/HCPCS: 36415; 71045; 80048; 80076; 83605; 83735; 83880; 84145; 84484; 85025; 85379; 85610; 87040; 93005; 96361; 96374; 99284; J2930; J7030

== ENCOUNTER 2018-08-18 23:49 | Emergency (ER) | payer SELFPAY ==
--- OUTSIDE RECORDS SUMMARY | 2018-08-18 23:51 | XMS REPORT ---
:1960 Author Organization [facility] Address [address] [place] [address] Care Team Providers Name Role Phone Unavailable Unavailable Unavailable Problems This patient has no known problems. Allergies, Adverse Reactions, Alerts This patient has no known allergies or adverse reactions. Medications This patient has no known medications.
[2018-08-19] MEDS ORDERED: METHYLPREDNISOLONE 125 MG INJ ONE (00:42)
[2018-08-19] MEDS ORDERED: ALBUTEROL 2.5 MG/3 ML NEB SOL ONE ×2 (00:42→02:42)
[2018-08-19] MEDS ORDERED: IPRATROPIUM BROM 0.5MG/2.5ML ONE (00:43)
[2018-08-19 00:47] LABS: Absolute Lymphocytes (CBC) 1.7 K/uL (0.7-4.9); Absolute Monocytes 0.3 K/uL (0.1-1.3); Absolute Neutrophil 4.5 K/uL (1.8-8.0); Basophils % 1.2 % (0-1.3); Eosinophils % 4.3 % (0-4.4); Hematocrit 48.7 % (39.6-49.0); Lymphocytes % 24.8 % (15.3-44.8); MPV 8.2 fL (7.6-11.3); Monocytes % 4.8 % (3.3-12.3); RBC Red Blood Cell Count 5.41 M/uL (4.33-5.43)
[2018-08-19 00:48] LABS: Protime INR 0.93
[2018-08-19 01:11] LABS: ALT/SGPT 15 U/L (12-78); AST/SGOT 13 U/L (15-37); Albumin 3.8 g/dL (3.4-5.0); Alkaline Phosphatase 98 U/L (45-117); BUN Blood Urea Nitrogen 6 mg/dL (7-18); Bicarbonate 31 mmol/L (21-32); Bilirubin Direct < 0.1 mg/dL (0-0.2); Bilirubin Total 0.2 mg/dL (0.2-1.0); Glucose Level 96 mg/dL (74-106); Magnesium 2.5 mg/dL (1.8-2.4); NT PRO-BNP 42 pg/mL (<125); Potassium 4.3 mmol/L (3.5-5.1); Protein, Total 7.2 g/dL (6.4-8.2); Sodium Level 143 mmol/L (136-145); Troponin (Emerg Dept Use Only) < 0.02 ng/mL (0.0-0.045)
--- NOTE | 2018-08-19 02:43 | EDPHYS ---
Physician Documentation [facility] Name: Iron Haynes Age: 58 yrs Sex: Male : 1960 Arrival Date: 08/18/2018 Time: 23:50 Bed 20 Private MD: ED Physician Zohaib Gomze HPI: 08/19 01:04 This 58 yrs old Patient Declined Male presents to ER via Ambulatory with complaints of jr8 Breathing Difficulty. 01:04 The patient has shortness of breath at rest. Onset: The symptoms/episode began/occurred jr8 gradually, 2 day(s) ago, and became worse. Duration: The symptoms are continuous. The patient's shortness of breath is aggravated by talking, walking. Associated signs and symptoms: Pertinent positives: non-productive cough. Severity of symptoms: At their worst the symptoms were moderate in the emergency department the symptoms are unchanged. The patient has experienced similar episodes in the past, a few times. The patient has not recently seen a physician. Historical: - Allergies: 00:01 Codeine; bb - Home Meds: 00:01 Albuterol Nebulizer [Active]; Combivent Inhl [Active]; bb - PMHx: 00:01 COPD; bb - PSHx: 00:01 Hernia repair; hand surgery; bb - Immunization history:: Adult Immunizations up to date. - Social history:: Smoking status: Patient/guardian denies using tobacco. - Ebola Screening: : No symptoms or risks identified at this time. ROS: 01:04 Eyes: Negative for injury, pain, redness, and discharge, ENT: Negative for injury, jr8 pain, and discharge, Neck: Negative for injury, pain, and swelling, Cardiovascular: Negative for chest pain, palpitations, and edema, Abdomen/GI: Negative for abdominal pain, nausea, vomiting, diarrhea, and constipation, Back: Negative for injury and pain, MS/Extremity: Negative for injury and deformity, Skin: Negative for injury, rash, and discoloration, Neuro: Negative for headache, weakness, numbness, tingling, and seizure. 01:04 Respiratory: Positive for cough, with no reported sputum, dyspnea on exertion, shortness of breath, wheezing, Negative for hemoptysis, orthopnea, pleurisy. Exam: 01:04 Eyes: Pupils equal round and reactive to light, extra-ocular motions intact. Lids and jr8 lashes normal. Conjunctiva and sclera are non-icteric and not injected. Cornea within normal limits. Periorbital areas with no swelling, redness, or edema. ENT: Nares patent. No nasal discharge, no septal abnormalities noted. Tympanic membranes are normal and external auditory canals are clear. Oropharynx with no redness, swelling, or masses, exudates, or evidence of obstruction, uvula midline. Mucous membranes moist. Neck: Trachea midline, no thyromegaly or masses palpated, and no cervical lymphadenopathy. Supple, full range of motion without nuchal rigidity, or vertebral point tenderness. No Meningismus. Cardiovascular: Regular rate and rhythm with a normal S1 and S2. No gallops, murmurs, or rubs. Normal PMI, no JVD. No pulse deficits. Abdomen/GI: Soft, non-tender, with normal bowel sounds. No distension or tympany. No guarding or rebound. No evidence of tenderness throughout. Back: No spinal tenderness. No costovertebral tenderness. Full range of motion. Skin: Warm, dry with normal turgor. Normal color with no rashes, no lesions, and no evidence of cellulitis. MS/ Extremity: Pulses equal, no cyanosis. Neurovascular intact. Full, normal range of motion. Neuro: Awake and alert, GCS 15, oriented to person, place, time, and situation. Cranial nerves II-XII grossly intact. Motor strength 5/5 in all extremities. Sensory grossly intact. Cerebellar exam normal. Normal gait. 01:04 Respiratory: mild respiratory distress is noted, Respirations: tachypnea, Breath sounds: wheezing: expiratory that is moderate, is heard diffusely. 01:50 ECG was reviewed by the Attending Physician. [facility] Vital Signs: 00:01 BP 127 / 76; Pulse 101; Resp 20 S; Temp 98(O); Pulse Ox 97% on R/A; Weight 72.57 kg bb (R); Height 6 ft. 0 in. (182.88 cm) (R); Pain 0/10; 00:30 BP 136 / 94; Pulse 117; Resp 23 S; Pulse Ox 94% on R/A; cc3 01:00 BP 118 / 72; Pulse 97; Resp 22 S; Pulse Ox 95% on R/A; cc3 02:00 BP 109 / 70; Pulse 86; Resp 23 S; Pulse Ox 91% on R/A; cc3 03:45 BP 114 / 68; Pulse 95; Resp 20 S; Pulse Ox 95% on R/A; cc3 00:01 Body Mass Index 21.70 (72.57 kg, 182.88 cm) bb MDM: 00:13 Patient medically screened. [facility] 02:26 Data reviewed: vital signs, nurses notes, lab test result(s), EKG, radiologic studies, [facility] plain films. Data interpreted: Pulse oximetry: on room air is 95 %. Interpretation: normal. Counseling: I had a detailed discussion with the patient and/or guardian regarding: the historical points, exam findings, and any diagnostic results supporting the discharge/admit diagnosis, lab results, radiology results, the need for outpatient follow up, a family practitioner, to return to the emergency department if symptoms worsen or persist or if there are any questions or concerns that arise at home. Response to treatment: the patient's symptoms have markedly improved after treatment. ED course: Patient feeling much better. Will give another round of treatments and then reassess. If better patient wants to go home. Told him if he does well after second treatment can go home with close return precautions . 08/19 00:28 Order name: Basic Metabolic Panel [facility] 08/19 00:28 Order name: CBC with Diff; Complete Time: 00:55 08/19 00:28 Order name: LFT's; Complete Time: 01:56 08/19 00:28 Order name: Magnesium; Complete Time: :56 08/19 00:28 Order name: NT PRO-BNP; Complete Time: :56 08/19 00:28 Order name: PT-INR; Complete Time: 00:55 08/19 00:28 Order name: Troponin (emerg Dept Use Only); Complete Time: :56 08/19 00:28 Order name: XRAY Chest (1 view) 08/19 00:28 Order name: EKG; Complete Time: 00:31 08/19 00:28 Order name: Cardiac monitoring; Complete Time: 00:38 08/19 00:31 Order name: Basic Metabolic Panel; Complete Time: 01:56 EDVT 08/19 00:28 Order name: EKG - Nurse/Tech; Complete Time: 01:08/19 00:28 Order name: IV Saline Lock; Complete Time: 08/19 00:28 Order name: Labs collected and sent; Complete Time: 08/19 00:28 Order name: O2 Per Protocol; Complete Time: 08/19 00:28 Order name: O2 Sat Monitoring; Complete Time: EC:50 Rate is 92 beats/min. Rhythm is regular, Normal Sinus Rhythm. QRS [place] is Normal. [place] jr8 interval is normal at 142 msec. QRS interval is normal at 86 msec. QT interval is normal at 442 msec. No Q waves. T waves are Normal. No ST changes noted. Clinical impression: Normal ECG and No evidence of ischemia. Interpreted by me. Reviewed by me. Administered Medications: 00:30 Drug: SOLU-Medrol 125 mg Route: IVP; Site: right antecubital; cc3 01:02 Follow up: Response: No adverse reaction; Marked relief of symptoms cc3 00:30 Drug: Albuterol - atroVENT (3:1) (2.5 mg - 0.5 mg) 3 ml Route: Nebulizer; cc3 01:02 Follow up: Response: No adverse reaction; Marked relief of symptoms cc3 02:30 Drug: Albuterol 2.5 mg Route: Inhalation; cc3 02:54 Drug: Albuterol 2.5 mg Route: Inhalation; cc3 03:20 Drug: Albuterol 2.5 mg Route: Inhalation; cc3 03:50 Follow up: Response: No adverse reaction; Marked relief of symptoms cc3 Disposition: 08/20 01:31 Co-signature as Attending Physician, Zohaib Gomez MD. Disposition: 08/19/18 02:43 Discharged to Home. Impression: Chronic obstructive pulmonary disease with (acute) exacerbation. - Condition is Stable. - Discharge Instructions: Chronic Obstructive Pulmonary Disease. - Prescriptions for Prednisone 20 mg Oral Tablet - take 1 tablet by ORAL route once daily for 5 days; 5 tablet. Albuterol Sulfate 2.5 mg /3 mL (0.083 %) Inhalation Solution for Nebulization - inhale 1 unit by NEBULIZATION route every 8 hours As needed; 1 box. Albuterol Sulfate 90 mcg/actuation - inhale 1-2 puff by INHALATION route every 4-6 hours; 1 Inhaler. - Medication Reconciliation Form, Thank You Letter, Antibiotic Education, Prescription Opioid Use form. - Follow up: Private Physician; When: 1 - 2 days; Reason: Recheck today's complaints, Continuance of care, Re-evaluation by your physician. - Problem is new. - Symptoms have improved. Signatures: Dispatcher [employer] EDSagrario Carrillo RN RN Agustin Coats PA PA jr8 Zohaib Gomez MD MD gs Cordel, Charlene cc3 Corrections: (The following items were deleted from the chart) 08/19 03:53 02:43 08/19/2018 02:43 Discharged to Home. Impression: Chronic obstructive pulmonary cc3 disease with (acute) exacerbation. Condition is Stable. Forms are Medication Reconciliation Form, Thank You Letter, Antibiotic Education, Prescription Opioid Use. Follow up: Private Physician; When: 1 - 2 days; Reason: Recheck today's complaints, Continuance of care, Re-evaluation by your physician. Problem is new. Symptoms have improved. jr8
--- NOTE | 2018-08-19 02:43 | ER ---
Nurse's Notes [facility] Name: Iron Haynes Age: 58 yrs Sex: Male : 1960 Arrival Date: 08/18/2018 Time: 23:50 Bed 20 Private MD: Diagnosis: Chronic obstructive pulmonary disease with (acute) exacerbation Presentation: 08/18 23:59 Presenting complaint: Patient states: he has COPD and has run out of his medications he bb has been having difficulty breathing all weekend and it is getting worse. Transition of care: patient was not received from another setting of care. Onset of symptoms was August 15, 2018. Risk Assessment: Do you want to hurt yourself or someone else? Patient reports no desire to harm self or others. Initial Sepsis Screen: Does the patient meet any 2 criteria? No. Patient's initial sepsis screen is negative. Does the patient have a suspected source of infection? No. Patient's initial sepsis screen is negative. Care prior to arrival: None. 23:59 Method Of Arrival: Ambulatory bb 23:59 Acuity: EDUARD 3 bb Triage Assessment: 08/19 00:01 General: Appears distressed, slender, Behavior is calm, cooperative. Pain: Denies pain. bb Respiratory: Reports shortness of breath Respiratory effort is labored, pursed lip, Onset: The symptoms/episode began/occurred 3 days ago, the patient has moderate shortness of breath. Historical: - Allergies: 00:01 Codeine; bb - Home Meds: 00:01 Albuterol Nebulizer [Active]; Combivent Inhl [Active]; bb - PMHx: 00:01 COPD; bb - PSHx: 00:01 Hernia repair; hand surgery; bb - Immunization history:: Adult Immunizations up to date. - Social history:: Smoking status: Patient/guardian denies using tobacco. - Ebola Screening: : No symptoms or risks identified at this time. Screenin:11 Abuse screen: Denies threats or abuse. Denies injuries from another. Nutritional cc3 screening: No deficits noted. Tuberculosis screening: No symptoms or risk factors identified. Fall Risk Ambulatory Aid- None/Bed Rest/Nurse Assist (0 pts). Gait- Normal/Bed Rest/Wheelchair (0 pts) Mental Status- Oriented to own ability (0 pts). Assessment: 00:11 General: Appears distressed, uncomfortable, Behavior is cooperative. Pain: Complains of cc3 pain in chest Quality of pain is described as pressure. Neuro: Level of Consciousness is awake, alert, obeys commands, Oriented to person, place, time, situation, Appropriate for age. Cardiovascular: Patient's skin is warm and dry. Rhythm is regular. Respiratory: Airway is compromised Respiratory effort is labored, Respiratory pattern is regular, symmetrical. GI: Abdomen is flat. : No signs and/or symptoms were reported regarding the genitourinary system. EENT: No signs and/or symptoms were reported regarding the EENT system. Derm: Rash noted that is patient said he has psoriasis. Musculoskeletal: Circulation, motion, and sensation intact. Range of motion: intact in all extremities. 00:11 Respiratory: Breath sounds with wheezes bilaterally. cc3 01:18 Reassessment: Patient appears in no apparent distress at this time. Patient and/or cc3 family updated on plan of care and expected duration. Pain level reassessed. Patient is alert, oriented x 3, equal unlabored respirations, skin warm/dry/pink. 02:38 Reassessment: Patient appears in no apparent distress at this time. Patient and/or cc3 family updated on plan of care and expected duration. Pain level reassessed. Patient is alert, oriented x 3, equal unlabored respirations, skin warm/dry/pink. 02:43 Reassessment: SAMANTHA Navarro discharged the patient home but after the 3x of albuterol cc3 nebulization treatment. 03:50 Reassessment: Patient appears in no apparent distress at this time. Patient and/or cc3 family updated on plan of care and expected duration. Pain level reassessed. Patient is alert, oriented x 3, equal unlabored respirations, skin warm/dry/pink. Patient felt better, vital signs as charted and referred to Dr. Gomez and said patient can be discharged home with prescriptions given. IV cannula removed and patient left ER vitally stable and ambulatory. Patient denies pain at this time. Patient states feeling better. Patient states symptoms have improved. Vital Signs: 00:01 BP 127 / 76; Pulse 101; Resp 20 S; Temp 98(O); Pulse Ox 97% on R/A; Weight 72.57 kg bb (R); Height 6 ft. 0 in. (182.88 cm) (R); Pain 0/10; 00:30 BP 136 / 94; Pulse 117; Resp 23 S; Pulse Ox 94% on R/A; cc3 01:00 BP 118 / 72; Pulse 97; Resp 22 S; Pulse Ox 95% on R/A; cc3 02:00 BP 109 / 70; Pulse 86; Resp 23 S; Pulse Ox 91% on R/A; cc3 03:45 BP 114 / 68; Pulse 95; Resp 20 S; Pulse Ox 95% on R/A; cc3 00:01 Body Mass Index 21.70 (72.57 kg, 182.88 cm) bb ED Course: 08/18 23:50 Patient arrived in ED. am2 08/19 00:00 Triage completed. bb 00:01 Arm band placed on Patient placed in an exam room, on a stretcher, on pulse oximetry. bb 00:11 Yesenia Anna is Primary Nurse. cc3 00:11 Patient has correct armband on for positive identification. Placed in gown. Bed in low cc3 position. Call light in reach. Side rails up X 1. cardiac monitor on. Pulse ox on. NIBP on. 00:12 Agustin Navarro PA is PHCP. jr8 00:12 Zohaib Gomez MD is Attending Physician. jr8 00:20 Inserted saline lock: 20 gauge in right antecubital area, using aseptic technique. cc3 Blood collected. 02:01 X-ray completed. Portable x-ray completed in exam room. Patient tolerated procedure kw well. 02:06 XRAY Chest (1 view) In Process Unspecified. EDMS 03:50 No provider procedures requiring assistance completed. IV discontinued, intact, cc3 bleeding controlled, No redness/swelling at site. Pressure dressing applied. Administered Medications: 00:30 Drug: SOLU-Medrol 125 mg Route: IVP; Site: right antecubital; cc3 01:02 Follow up: Response: No adverse reaction; Marked relief of symptoms cc3 00:30 Drug: Albuterol - atroVENT (3:1) (2.5 mg - 0.5 mg) 3 ml Route: Nebulizer; cc3 01:02 Follow up: Response: No adverse reaction; Marked relief of symptoms cc3 02:30 Drug: Albuterol 2.5 mg Route: Inhalation; cc3 02:54 Drug: Albuterol 2.5 mg Route: Inhalation; cc3 03:20 Drug: Albuterol 2.5 mg Route: Inhalation; cc3 03:50 Follow up: Response: No adverse reaction; Marked relief of symptoms cc3 Outcome: 02:43 Discharge ordered by MD. yousif 03:50 Discharged to home ambulatory. cc3 03:50 Condition: stable 03:50 Discharge instructions given to patient, Instructed on discharge instructions, follow up and referral plans. medication usage, Demonstrated understanding of instructions, follow-up care, medications, Prescriptions given X 3. 03:53 Patient left the ED. cc3 Signatures: Dispatcher [employer] EDMS Sagrario Thomas RN RN Sharda Emmanuel Josh, PA PA jrMay Stroud Charlene cc3
--- NOTE | 2018-08-19 07:44 | EKG ---
Test Date: 2018-08-19 Test Time: 00:51:24 Relationship Assoc: HATTIE MEASUREMENT RESULTS: Intervals: Rate: 92 TN: 142 QRSD: 86 QT: 358 QTc: 442 Zebulon: P: 85 TN: 142 QRS: 93 T: 71 INTERPRETIVE STATEMENTS: Normal sinus rhythm Possible Lateral infarct, age undetermined Abnormal ECG Compared to ECG 04/21/2018 19:49:12 Myocardial infarct finding now present Sinus tachycardia no longer present Right-axis deviation no longer present Electronically Signed On 08-19-18 07:42:52 CDT by Agus Beckman
--- NOTE | 2018-08-19 09:05 | RAD REPORT ---
EXAM DESCRIPTION: RAD - Chest Single View - 08/19/2018 2:06 am CLINICAL HISTORY: Cough, dyspnea COMPARISON: March 2018 TECHNIQUE: AP portable chest image was obtained 0124 hours . FINDINGS: No focal lung parenchymal process. Interstitial pattern is similar to the comparison. Hear t and vasculature are normal. No measurable pleural effusion and no pneumothorax. No acute bony abnor mality seen. No acute aortic findings suspected. IMPRESSION: No acute cardiopulmonary process. No significant interval change.
== END 2018-08-19 03:53 | disposition home or self-care (01) ==
LOC: ER 23:49
DX: J44.1 Chronic obstructive pulmonary disease with (acute) exacerbation (principal); Z88.5 Allergy status to narcotic agent
CPT/HCPCS: 36415; 71045; 80048; 80076; 83735; 83880; 84484; 85025; 85610; 93005; 94640; 96374; 99285; J2930

== ENCOUNTER 2018-09-25 20:41 | Emergency (ER) | payer SELFPAY ==
[2018-09-25] MEDS ORDERED: LEVALBUTEROL 1.25 MG/3 ML NEB ONE (21:25)
[2018-09-25] MEDS ORDERED: METHYLPREDNISOLONE 125 MG INJ ONE (21:25)
[2018-09-25] MEDS ORDERED: IPRATROPIUM BROM 0.5MG/2.5ML ONE (21:25)
--- NOTE | 2018-09-25 22:38 | ER ---
Nurse's Notes [facility] Name: Iron Haynes Age: 58 yrs Sex: Male : 1960 Arrival Date: 09/25/2018 Time: 20:43 Bed 4 Private MD: Diagnosis: Chronic obstructive pulmonary disease with (acute) exacerbation Presentation: 09/25 20:57 Presenting complaint: Patient states: I am having a COPD exacerbation. I have been out ch of my meds. I cant breathe for the past two days. Transition of care: patient was not received from another setting of care. Onset of symptoms was September 23, 2018. Risk Assessment: Do you want to hurt yourself or someone else? Patient reports no desire to harm self or others. Initial Sepsis Screen: Does the patient meet any 2 criteria? No. Patient's initial sepsis screen is negative. Does the patient have a suspected source of infection? No. Patient's initial sepsis screen is negative. Care prior to arrival: None. 20:57 Method Of Arrival: Wheelchair 20:57 Acuity: EDUARD 2 Triage Assessment: 20:58 General: Appears distressed, Behavior is anxious, restless. Pain: Denies pain. Respiratory: Reports shortness of breath air hunger Airway is patent Respiratory effort is labored, gasping, Breath sounds with rhonchi bilaterally. Breath sounds with wheezes Onset: The symptoms/episode began/occurred gradually, the patient has moderate shortness of breath. Historical: - Allergies: 20:58 Codeine; - PMHx: 20:58 COPD; - PSHx: 20:58 Hernia repair; hand surgery; - Immunization history:: Adult Immunizations unknown. - Social history:: Smoking status: Patient uses tobacco products. - Ebola Screening: : Patient negative for fever greater than or equal to 101.5 degrees Fahrenheit, and additional compatible Ebola Virus Disease symptoms Patient denies exposure to infectious person Patient denies travel to an Ebola-affected area in the 21 days before illness onset No symptoms or risks identified at this time. - Family history:: not pertinent. - Hospitalizations: : No recent hospitalization is reported. Screenin:33 Abuse screen: Denies threats or abuse. Denies injuries from another. Nutritional lp1 screening: No deficits noted. Tuberculosis screening: No symptoms or risk factors identified. Fall Risk None identified. Assessment: 21:31 General: Appears in no apparent distress. Behavior is appropriate for age. Pain: Denies lp1 pain. Neuro: Level of Consciousness is awake, alert, obeys commands, Oriented to person, place, time, situation. Cardiovascular: Patient's skin is warm and dry. Respiratory: Airway is patent Respiratory effort is even, labored, Respiratory pattern is regular, Breath sounds are diminished Breath sounds with wheezes in left posterior lower lobe. GI: No deficits noted. : No deficits noted. EENT: No deficits noted. Derm: Skin is intact, Skin is dry, Skin is normal. Musculoskeletal: No deficits noted. 22:30 Reassessment: Patient appears in no apparent distress at this time. Patient is alert, lp1 oriented x 3, equal unlabored respirations, skin warm/dry/pink. Patient states feeling better. Patient states symptoms have improved. Vital Signs: 20:50 BP 146 / 78; Pulse 112; Resp 40; Temp 98.8; Pulse Ox 91% on R/A; Weight 81.65 kg; Height 5 ft. 11 in. (180.34 cm); Pain 0/10; 21:30 BP 114 / 62; Pulse 85; Resp 22; Pulse Ox 99% on Nebulizer Mask; lp1 22:00 BP 121 / 73; Pulse 91; Resp 22; Pulse Ox 97% on R/A; lp1 22:51 BP 122 / 79; Pulse 88; Resp 22; Pulse Ox 96% on R/A; Pain 0/10; lp1 20:50 Body Mass Index 25.10 (81.65 kg, 180.34 cm) ED Course: 20:43 Patient arrived in ED. ds1 20:50 Arm band placed on left wrist. Patient placed in an exam room, on a stretcher, on telemetry monitor. 20:58 Gilbert Barrett MD is Attending Physician. rn 20:58 Triage completed. 21:04 Ewa Markham, ALMA is Primary Nurse. lp1 21:16 Inserted saline lock: 20 gauge in left antecubital area, using aseptic technique. ed1 21:20 Patient has correct armband on for positive identification. awake overnight monitor on. Pulse lp1 ox on. NIBP on. 21:24 XRAY Chest (1 view) In Process Unspecified. EDMS 22:52 No provider procedures requiring assistance completed. IV discontinued, No lp1 redness/swelling at site. Pressure dressing applied. Administered Medications: 21:17 Drug: SOLU-Medrol 125 mg Route: IVP; Site: left antecubital; ed1 22:52 Follow up: Response: No adverse reaction lp1 21:21 Drug: Xopenex (3) 1.25 mg Route: Inhalation; ed1 21:21 Drug: AtroVENT Aerosol 0.5 mg Route: Inhalation; ed1 Outcome: 22:37 Discharge ordered by . rn 22:52 Discharged to home ambulatory. lp1 22:52 Condition: good 22:52 Discharge instructions given to patient, Instructed on discharge instructions, follow up and referral plans. medication usage, Demonstrated understanding of instructions, follow-up care, medications, Prescriptions given X 3. 22:53 Patient left the ED. lp1 Signatures: Dispatcher [employer] EDDahiana Brenner, RN RN Maria Del Carmen Patricio ds1 Gilbert Barrett MD MD rn Riggs, Erika, RN RN ed1 Ewa Markham RN RN lp1
--- NOTE | 2018-09-25 22:38 | EDPHYS ---
Physician Documentation [facility] Name: Iron Haynes Age: 58 yrs Sex: Male : 1960 Arrival Date: 09/25/2018 Time: 20:43 Bed 4 Private MD: ED Physician Gilbert Barrett HPI: 09/25 21:56 This 58 yrs old Patient Declined Male presents to ER via Wheelchair with complaints of rn Breathing Difficulty. 21:56 The patient has shortness of breath at rest, with light activity. rn 21:56 Onset: The symptoms/episode began/occurred 2 day(s) ago. Duration: The symptoms are rn continuous. The patient's shortness of breath is aggravated by exertion, light activity. Associated signs and symptoms: Pertinent positives: non-productive cough, Pertinent negatives: chest pain, fever, hemoptysis, loss of consciousness. Severity of symptoms: At their worst the symptoms were moderate in the emergency department the symptoms are unchanged. The patient has experienced similar episodes in the past. Reports ran out of inhaler for his COPD, reports gets like this, turns around in ER, and does fine with inhaler, no fever/hemoptysis, doesn't feel sick, still smokes. No chest pain. . Historical: - Allergies: 20:58 Codeine; ch - PMHx: 20:58 COPD; ch - PSHx: 20:58 Hernia repair; hand surgery; ch - Immunization history:: Adult Immunizations unknown. - Social history:: Smoking status: Patient uses tobacco products. - Ebola Screening: : Patient negative for fever greater than or equal to 101.5 degrees Fahrenheit, and additional compatible Ebola Virus Disease symptoms Patient denies exposure to infectious person Patient denies travel to an Ebola-affected area in the 21 days before illness onset No symptoms or risks identified at this time. - Family history:: not pertinent. - Hospitalizations: : No recent hospitalization is reported. ROS: 21:56 Constitutional: Negative for fever, chills, and weight loss, Eyes: Negative for injury, rn pain, redness, and discharge, Neck: Negative for injury, pain, and swelling, Cardiovascular: Negative for chest pain, palpitations, and edema, Respiratory: + sob and cough, + wheezing Abdomen/GI: Negative for abdominal pain, nausea, vomiting, diarrhea, and constipation, MS/Extremity: Negative for injury and deformity, Skin: Negative for injury, rash, and discoloration, Neuro: Negative for headache, weakness, numbness, tingling, and seizure. Exam: 21:56 Constitutional: This is a well developed, well nourished patient who is awake, alert, rn + mild tachypnea Head/Face: Normocephalic, atraumatic. Eyes: Pupils equal round and reactive to light, extra-ocular motions intact. Lids and lashes normal. Conjunctiva and sclera are non-icteric and not injected. Cornea within normal limits. Periorbital areas with no swelling, redness, or edema. ENT: dry MM, no stridor Cardiovascular: Regular rate and rhythm. No pulse deficits. Respiratory: + bilateral wheezing and mild tachypnea, no retractions MS/ Extremity: Pulses equal, no cyanosis. Neurovascular intact. Full, normal range of motion. Equal circumference. Neuro: Awake and alert, GCS 15, oriented to person, place, time, and situation. Cranial nerves II-XII grossly intact. Motor strength 5/5 in all extremities. Sensory grossly intact. Cerebellar exam normal. Normal gait. Vital Signs: 20:50 BP 146 / 78; Pulse 112; Resp 40; Temp 98.8; Pulse Ox 91% on R/A; Weight 81.65 kg; ch Height 5 ft. 11 in. (180.34 cm); Pain 0/10; 21:30 BP 114 / 62; Pulse 85; Resp 22; Pulse Ox 99% on Nebulizer Mask; lp1 22:00 BP 121 / 73; Pulse 91; Resp 22; Pulse Ox 97% on R/A; lp1 22:51 BP 122 / 79; Pulse 88; Resp 22; Pulse Ox 96% on R/A; Pain 0/10; lp1 20:50 Body Mass Index 25.10 (81.65 kg, 180.34 cm) ch MDM: 20:58 Patient medically screened. rn 22:36 Differential diagnosis: Chronic Obstructive Pulmonary Disease pneumonia, Pneumothorax. rn Data reviewed: vital signs, nurses notes, radiologic studies, plain films, and as a result, I will discharge patient. Test interpretation: by ED physician or midlevel provider: plain radiologic studies, CXR with hyperinflated lungs, no acute infiltrate, negative for pneumothorax.. Counseling: I had a detailed discussion with the patient and/or guardian regarding: the historical points, exam findings, and any diagnostic results supporting the discharge/admit diagnosis, radiology results, the need for outpatient follow up, to return to the emergency department if symptoms worsen or persist or if there are any questions or concerns that arise at home. Response to treatment: the patient's symptoms have markedly improved after treatment, and as a result, I will discharge patient. Special discussion: I discussed with the patient/guardian in detail that at this point there is no indication for admission to the hospital. It is understood, however, that if the symptoms persist or worsen the patient needs to return immediately for re-evaluation. 09/25 20:58 Order name: XRAY Chest (1 view) rn 09/25 20:58 Order name: IV Start; Complete Time: 21:17 rn Administered Medications: 21:17 Drug: SOLU-Medrol 125 mg Route: IVP; Site: left antecubital; ed1 22:52 Follow up: Response: No adverse reaction lp1 21:21 Drug: Xopenex (3) 1.25 mg Route: Inhalation; ed1 21:21 Drug: AtroVENT Aerosol 0.5 mg Route: Inhalation; ed1 Disposition: 09/25/18 22:37 Discharged to Home. Impression: Chronic obstructive pulmonary disease with (acute) exacerbation. - Condition is Stable. - Discharge Instructions: Chronic Obstructive Pulmonary Disease Exacerbation. - Prescriptions for Prednisone 20 mg Oral Tablet - take 3 tablet by ORAL route once daily for 5 days; 15 tablet. Albuterol Sulfate 2.5 mg /3 mL (0.083 %) Inhalation Solution for Nebulization - inhale 1 unit by NEBULIZATION route every 8 hours As needed; 1 box. Albuterol Sulfate 90 mcg/actuation - inhale 1-2 puff by INHALATION route every 4-6 hours; 1 Inhaler. - Medication Reconciliation Form, Thank You Letter, Antibiotic Education, Prescription Opioid Use form. - Follow up: Private Physician; When: As needed; Reason: Recheck today's complaints, Re-evaluation by your physician. - Problem is new. - Symptoms have improved. Signatures: Dispatcher [employer] EDMS Dahiana Anderson RN RN Gilbert Barrett MD MD rn Riggs, Erika, RN RN ed1 Ewa Markham RN RN lp1 Corrections: (The following items were deleted from the chart) 22:03 21:56 Constitutional: This is a well developed, well nourished patient who is awake, rn alert, and in no acute distress. rn 22:53 22:37 09/25/2018 22:37 Discharged to Home. Impression: Chronic obstructive pulmonary lp1 disease with (acute) exacerbation. Condition is Stable. Forms are Medication Reconciliation Form, Thank You Letter, Antibiotic Education, Prescription Opioid Use. Follow up: Private Physician; When: As needed; Reason: Recheck today's complaints, Re-evaluation by your physician. Problem is new. Symptoms have improved. rn
--- OUTSIDE RECORDS SUMMARY | 2018-09-26 12:39 | XMS REPORT ---
:1960 [facility] [address] [place] [address] Care Team Providers Name Role Phone Unavailable Unavailable Unavailable Problems This patient has no known problems. Allergies, Adverse Reactions, Alerts This patient has no known allergies or adverse reactions. Medications This patient has no known medications.
--- NOTE | 2018-09-26 15:24 | RAD REPORT ---
EXAM DESCRIPTION: Amna Single View09/26/2018 11:42 am CLINICAL HISTORY: Shortness of breath COMPARISON: July 2018 FINDINGS: Lungs are hyperaerated The lungs appear clear of acute infiltrate. The heart is normal size IMPRESSION: Significant COPD
== END 2018-09-25 22:53 | disposition home or self-care (01) ==
LOC: ER 20:41
DX: J44.1 Chronic obstructive pulmonary disease with (acute) exacerbation (principal); Z88.5 Allergy status to narcotic agent; Z72.0 Tobacco use
CPT/HCPCS: 71045; 96374; 99285; J2930

== ENCOUNTER 2018-10-18 12:29 | Emergency (ER) | payer SELFPAY ==
--- OUTSIDE RECORDS SUMMARY | 2018-10-18 12:31 | XMS REPORT ---
:1960 [facility] [address] [place] [address] Care Team Providers Name Role Phone Unavailable Unavailable Unavailable Problems This patient has no known problems. Allergies, Adverse Reactions, Alerts This patient has no known allergies or adverse reactions. Medications This patient has no known medications.
[2018-10-18] MEDS ORDERED: ALBUTEROL 2.5 MG/3 ML NEB SOL ONE (13:00)
--- NOTE | 2018-10-18 13:16 | RAD REPORT ---
EXAM DESCRIPTION: RAD - Chest Pa And Lat (2 Views) - 10/18/2018 1:02 pm CLINICAL HISTORY: Shortness of breath, COPD COMPARISON: September 25, 2018 TECHNIQUE: PA and lateral views of the chest were obtained. FINDINGS: The lungs are clear of an acute infiltrate or mass. No failure or volume overload. Diaphra gm is flattened with increased retrosternal space. Costophrenic angle blunting present. These are all similar to the comparison. No mediastinal or hilar mass or lymphadenopathy seen. Heart size is nor mal and central vasculature is within normal limits. No pleural effusion or pneumothorax seen. No a cute bony finding noted. No aortic abnormality. IMPRESSION: Moderate COPD findings similar to August 2018. No acute cardiopulmonary finding.
[2018-10-18] MEDS ORDERED: IPRATROPIUM BROM 0.5MG/2.5ML ONE (13:21)
[2018-10-18] MEDS ORDERED: predniSONE 20 MG TAB ONE (13:22)
--- NOTE | 2018-10-18 15:22 | ER ---
Nurse's Notes [facility] Name: Iron Haynes Age: 58 yrs Sex: Male : 1960 Arrival Date: 10/18/2018 Time: 12:30 Bed 23 Private MD: Diagnosis: Chronic obstructive pulmonary disease with (acute) exacerbation Presentation: 10/18 12:35 Presenting complaint: Patient states: Shortness of breath that started a few hours ago, aj1 reports a history of COPD but states that he is currently out of his medications. Transition of care: patient was not received from another setting of care. Onset of symptoms was October 18, 2018. Risk Assessment: Do you want to hurt yourself or someone else? Patient reports no desire to harm self or others. Initial Sepsis Screen: Does the patient meet any 2 criteria? No. Patient's initial sepsis screen is negative. Does the patient have a suspected source of infection? No. Patient's initial sepsis screen is negative. Care prior to arrival: None. 12:35 Method Of Arrival: Ambulatory [facility] 12:35 Acuity: EDUARD 3 aj1 Triage Assessment: 12:36 General: Appears in no apparent distress. uncomfortable, Behavior is calm, cooperative, aj1 appropriate for age. Pain: Denies pain. Neuro: Level of Consciousness is awake, alert, obeys commands. Cardiovascular: Patient's skin is warm and dry. Respiratory: Airway is patent Respiratory pattern is regular, symmetrical, tachypnea. Historical: - Allergies: 12:36 Codeine; aj1 - Home Meds: 12:36 Albuterol Inhl [Active]; albuterol sulfate Oral [Active]; Combivent Inhl [Active]; aj1 - PMHx: 12:36 COPD; aj1 - Immunization history:: Flu vaccine is not up to date. - Social history:: Smoking status: Patient/guardian denies using tobacco. - Ebola Screening: : Patient denies travel to an Ebola-affected area in the 21 days before illness onset. Screenin:11 Abuse screen: Denies threats or abuse. Denies injuries from another. Nutritional ca1 screening: No deficits noted. Tuberculosis screening: No symptoms or risk factors identified. Fall Risk None identified. Assessment: 13:11 General: Appears in no apparent distress. comfortable, Behavior is calm, cooperative, ca1 appropriate for age. Pain: Denies pain. Neuro: Level of Consciousness is awake, alert, obeys commands, Oriented to person, place, time, situation. Cardiovascular: Heart tones S1 S2 present Capillary refill < 3 seconds Patient's skin is warm and dry. Pulses are all present. Rhythm is sinus rhythm. Respiratory: Reports shortness of breath on exertion since today. Airway is patent Respiratory effort is even, unlabored, Respiratory pattern is regular, symmetrical, Breath sounds are clear bilaterally. GI: Abdomen is flat, non-distended, Bowel sounds present X 4 quads. Abd is soft and non tender X 4 quads. : No deficits noted. No signs and/or symptoms were reported regarding the genitourinary system. EENT: No deficits noted. No signs and/or symptoms were reported regarding the EENT system. Derm: Skin is intact, is healthy with good turgor, Skin is pink, warm \T\ dry. Musculoskeletal: Circulation, motion, and sensation intact. Capillary refill < 3 seconds, Range of motion: intact in all extremities. 13:56 Reassessment: Patient appears in no apparent distress at this time. Patient and/or ca1 family updated on plan of care and expected duration. Pain level reassessed. Patient is alert, oriented x 3, equal unlabored respirations, skin warm/dry/pink. Patient states feeling better. Vital Signs: 12:36 BP 95 / 70; Pulse 83; Resp 28; Temp 97.5; Pulse Ox 94% on R/A; Weight 72.57 kg (R); aj1 Height 6 ft. 0 in. (182.88 cm) (R); Pain 0/10; 13:11 BP 112 / 73; Pulse 64; Resp 21 S; Pulse Ox 99% on Nebulizer Mask; ca1 14:02 BP 118 / 68; Pulse 79; Resp 19 S; Pulse Ox 96% on R/A; ca1 12:36 Body Mass Index 21.70 (72.57 kg, 182.88 cm) aj1 ED Course: 12:30 Patient arrived in ED. as 12:36 Triage completed. aj1 12:36 Arm band placed on Patient placed in waiting room, Patient notified of wait time. aj1 12:41 Oscar Juarez NP is PHCP. pm1 12:41 Gilbert Barrett MD is Attending Physician. pm1 12:48 Pili Rosado, RN is Primary Nurse. ca1 13:11 Patient has correct armband on for positive identification. Bed in low position. Call ca1 light in reach. Side rails up X 1. nuclear monitoring technician on. Pulse ox on. NIBP on. Warm blanket given. 13:11 No provider procedures requiring assistance completed. ca1 14:14 Patient did not have IV access during this emergency room visit. ca1 Administered Medications: 12:47 Drug: Albuterol - atroVENT (3:1) (2.5 mg - 0.5 mg) 3 ml Route: Nebulizer; ca1 14:09 Follow up: Response: No adverse reaction; Marked relief of symptoms ca1 13:11 Drug: predniSONE 60 mg Route: PO; ca1 14:09 Follow up: Response: No adverse reaction; Marked relief of symptoms ca1 Outcome: 14:04 Discharge ordered by MD. pm1 14:14 Discharged to home ambulatory. ca1 14:14 Condition: stable 14:14 Discharge instructions given to patient, Instructed on discharge instructions, follow up and referral plans. medication usage, Demonstrated understanding of instructions, follow-up care, medications, Prescriptions given X 3. 14:15 Patient left the ED. ca1 Signatures: Erika Kennedy RN RN aj1 Jossie Slaughter Patrick, CURB SUPERVISOR CURB SUPERVISOR pm1 Pili Rosado, ALMA RN ca1 Corrections: (The following items were deleted from the chart) 12:38 12:36 Arm band placed on Patient placed in an exam room, aj aj 14:09 14:02 BP 118 / 68; Pulse 79bpm; Resp 24bpm; Pulse Ox 96% RA; ca1 ca1
--- NOTE | 2018-10-18 15:23 | EDPHYS ---
Physician Documentation [facility] Name: Iron Haynes Age: 58 yrs Sex: Male : 1960 Arrival Date: 10/18/2018 Time: 12:30 Bed 23 Private MD: ED Physician Gilbert Barrett HPI: 10/18 14:01 This 58 yrs old Patient Declined Male presents to ER via Ambulatory with complaints of pm1 COPD Exacerbation. 14:01 The patient has shortness of breath and the patient has a history of CHF, ran out of pm1 his inhaler medications . Onset: The symptoms/episode began/occurred today. The patient's shortness of breath is aggravated by nothing, is alleviated by nothing. Associated signs and symptoms: Pertinent negatives: chest pain, productive cough, fever, nausea, vomiting. Severity of symptoms: in the emergency department the symptoms are worse. The patient has experienced similar episodes in the past, multiple times. The patient has not recently seen a physician. Patient ran out of his medications 3 days ago. Historical: - Allergies: 12:36 Codeine; aj1 - Home Meds: 12:36 Albuterol Inhl [Active]; albuterol sulfate Oral [Active]; Combivent Inhl [Active]; aj1 - PMHx: 12:36 COPD; aj1 - Immunization history:: Flu vaccine is not up to date. - Social history:: Smoking status: Patient/guardian denies using tobacco. - Ebola Screening: : Patient denies travel to an Ebola-affected area in the 21 days before illness onset. ROS: 14:01 Constitutional: Negative for fever, chills, and weight loss, Eyes: Negative for injury, pm1 pain, redness, and discharge, ENT: Negative for injury, pain, and discharge, Neck: Negative for injury, pain, and swelling, Cardiovascular: Negative for chest pain, palpitations, and edema. 14:01 Abdomen/GI: Negative for abdominal pain, nausea, vomiting, diarrhea, and constipation, Back: Negative for injury and pain, : Negative for injury, bleeding, discharge, and swelling, MS/Extremity: Negative for injury and deformity, Skin: Negative for injury, rash, and discoloration, Neuro: Negative for headache, weakness, numbness, tingling, and seizure. 14:01 Respiratory: Positive for cough, shortness of breath, Negative for sputum production. Exam: 14:01 Constitutional: This is a well developed, well nourished patient who is awake, alert, pm1 and in no acute distress. Head/Face: Normocephalic, atraumatic. Eyes: Pupils equal round and reactive to light, extra-ocular motions intact. Lids and lashes normal. Conjunctiva and sclera are non-icteric and not injected. Cornea within normal limits. Periorbital areas with no swelling, redness, or edema. ENT: Nares patent. No nasal discharge, no septal abnormalities noted. Tympanic membranes are normal and external auditory canals are clear. Oropharynx with no redness, swelling, or masses, exudates, or evidence of obstruction, uvula midline. Mucous membranes moist. Neck: Trachea midline, no thyromegaly or masses palpated, and no cervical lymphadenopathy. Supple, full range of motion without nuchal rigidity, or vertebral point tenderness. No Meningismus. Chest/axilla: Normal chest wall appearance and motion. Nontender with no deformity. No lesions are appreciated. Cardiovascular: Regular rate and rhythm with a normal S1 and S2. No gallops, murmurs, or rubs. Normal PMI, no JVD. No pulse deficits. Respiratory: Lungs have equal breath sounds bilaterally, clear to auscultation and percussion. No rales, rhonchi or wheezes noted. No increased work of breathing, no retractions or nasal flaring. Abdomen/GI: Soft, non-tender, with normal bowel sounds. No distension or tympany. No guarding or rebound. No evidence of tenderness throughout. Back: No spinal tenderness. No costovertebral tenderness. Full range of motion. Skin: Warm, dry with normal turgor. Normal color with no rashes, no lesions, and no evidence of cellulitis. MS/ Extremity: Pulses equal, no cyanosis. Neurovascular intact. Full, normal range of motion. 14:01 Neuro: Orientation: is normal, Motor: is normal, moves all fours. Vital Signs: 12:36 BP 95 / 70; Pulse 83; Resp 28; Temp 97.5; Pulse Ox 94% on R/A; Weight 72.57 kg (R); aj1 Height 6 ft. 0 in. (182.88 cm) (R); Pain 0/10; 13:11 BP 112 / 73; Pulse 64; Resp 21 S; Pulse Ox 99% on Nebulizer Mask; ca1 14:02 BP 118 / 68; Pulse 79; Resp 19 S; Pulse Ox 96% on R/A; ca1 12:36 Body Mass Index 21.70 (72.57 kg, 182.88 cm) aj1 MDM: 12:43 Patient medically screened. pm1 14:02 Data reviewed: vital signs. Data interpreted: Pulse oximetry: on room air is 99 %. pm1 Interpretation: normal. 14:02 Counseling: I had a detailed discussion with the patient and/or guardian regarding: the pm1 historical points, exam findings, and any diagnostic results supporting the discharge/admit diagnosis, radiology results, the need for outpatient follow up, to return to the emergency department if symptoms worsen or persist or if there are any questions or concerns that arise at home. 14:02 ED course: Patient without any fever, sputum changes. Patient's current symptoms pm1 precipitated by a lack of medications. Patient ran out of his inhaler and nebulizer 3 days ago. Patient reports feeling back to 100% after breathing treatment in the ER. Therefore I will prescribe the patient his nebulizer treatment and inhaler. 10/18 12:45 Order name: Chest Pa And Lat (2 Views) XRAY pm1 10/18 13:18 Order name: RAD; Complete Time: 14:01 EDMS Administered Medications: 12:47 Drug: Albuterol - atroVENT (3:1) (2.5 mg - 0.5 mg) 3 ml Route: Nebulizer; ca1 14:09 Follow up: Response: No adverse reaction; Marked relief of symptoms ca1 13:11 Drug: predniSONE 60 mg Route: PO; ca1 14:09 Follow up: Response: No adverse reaction; Marked relief of symptoms ca1 Disposition: 14:32 Co-signature as Attending Physician, Gilbert Barrett MD. rn Disposition: 10/18/18 14:04 Discharged to Home. Impression: Chronic obstructive pulmonary disease with (acute) exacerbation. - Condition is Stable. - Discharge Instructions: Chronic Obstructive Pulmonary Disease Exacerbation. - Prescriptions for Prednisone 20 mg Oral Tablet - take 3 tablet by ORAL route once daily for 5 days; 15 tablet. Albuterol Sulfate 2.5 mg /3 mL (0.083 %) Inhalation Solution for Nebulization - inhale 1 unit by NEBULIZATION route every 8 hours As needed; 1 box. Albuterol Sulfate 90 mcg/actuation - inhale 1-2 puff by INHALATION route every 4-6 hours; 1 Inhaler. - Medication Reconciliation Form, Thank You Letter, Antibiotic Education, Prescription Opioid Use form. - Follow up: Emergency Department; When: As needed; Reason: Worsening of condition. Follow up: Private Physician; When: 2 - 3 days; Reason: Recheck today's complaints, Continuance of care, Re-evaluation by your physician. - Problem is new. - Symptoms have improved. Signatures: Dispatcher [employer] EDErika Prado RN RN aj1 Gilbert Barrett MD MD rn Oscar Juarez, FRONT ATTENDANT FRONT ATTENDANT pm1 Pili Rosado RN RN ca1 Corrections: (The following items were deleted from the chart) 14:15 14:04 10/18/2018 14:04 Discharged to Home. Impression: Chronic obstructive pulmonary ca1 disease with (acute) exacerbation. Condition is Stable. Forms are Medication Reconciliation Form, Thank You Letter, Antibiotic Education, Prescription Opioid Use. Follow up: Emergency Department; When: As needed; Reason: Worsening of condition. Follow up: Private Physician; When: 2 - 3 days; Reason: Recheck today's complaints, Continuance of care, Re-evaluation by your physician. Problem is new. Symptoms have improved. pm1
== END 2018-10-18 14:15 | disposition home or self-care (01) ==
LOC: ER 12:29
DX: J44.1 Chronic obstructive pulmonary disease with (acute) exacerbation (principal); I50.9 Heart failure, unspecified; Z88.5 Allergy status to narcotic agent
CPT/HCPCS: 71046; 94640; 99284; J7512

== ENCOUNTER 2021-07-11 02:25 | Emergency (ER) | payer SELFPAY ==
--- OUTSIDE RECORDS SUMMARY | 2021-07-11 02:28 | XMS REPORT | Continuity of Care Document ---
:1960 Author Organization [facility] t Address [address] [place] [address] Care Team Providers Name Role Phone Ainsley CROWEP Primary Care Physician Andrew LOCO Attending Clinician Advance Directives Directive Decision Effective Termination Comments Source Date Date Healthcare Agents on N/A Univ ersity FileNameRelationshipHealthcare of [place] Agent Medical RelationshipCommunicationBrent Branch [facility] [phone] (Mobile) Problems Condition Condition Condition Status Onset Resolution Last Treating Co mments Source Name Details Category Date Date Treatment Clinician Date Hypoxia Hypoxia Disease Active 2017-04 Univers 06-25 ity of 00:00: [place] 00 Medical Branch Allergies, Adverse Reactions, Alerts Allergy Allergy Status Severity Reaction(s) Onset Inactive Treating Comm ents Source Name Type Date Date Clinician Ann-Marie Pennington Active Unknown - Univ ers ty to See comments - ity of adverse 00:00: [place] reaction 00 Medical s Branch Social History Social Habit Start Date Stop Date Quantity Comments Source History SDOH University o f Alcohol Std [place] [facility] Drinks Branch History SDOH University o f Alcohol Binge [place] [facility] al Branch History SDOH University o f Alcohol Comment [place] [facility] ical Branch Exposure to Not sure University of SARS-CoV-2 [place] [facility] (event) Branch Alcohol intake 2021-04-20 2021-04-20 Lifetime University of 00:00:00 00:00:00 non-drinker [facility] (finding) Branch Tobacco use and 2019-07-16 2019-07-16 Never used Universit y of exposure 00:00:00 00:00:00 [facility] History SDOH 2019-07-16 2019-07-16 1 University o f Alcohol Frequency 00:00:00 00:00:00 [facility] edical Branch History of 2019-06-17 Cigarette Smoker Universi ty of tobacco use 00:00:00 [facility] Sex Ass[birth year] At [birth year] Universit y of 00:00:00 00:00:00 [facility] Smoking Status Start Date Stop Date Source Former smoker 2019-07-16 00:00:00 2019-07-16 00:00:00 [facility] Medications Ordered Filled Start Stop Current Ordering Indication Dosage Frequency Signature Comments Components Source Medication Medication Date Date Medication? Clinician (SIG) Name Name HYDROcodone 2021- Yes [id number] 1{tbl} Take 1 U nivers -acetaminop -14 06-21 tablet by it y of hen 10-325 00:00: 05:59 mouth [place] mg tablet 00 :00 every 6 Medical (six) Branch hours as needed for Pain (scale 4-6) for up to 7 days. Indication s: chronic pain levoFLOXaci 2021- Yes [id number] 500mg Take 1 Univers n 500 mg 06-07 [id number] tablet by ity of tablet 00:00: 05:59 mouth [place] 00 :00 every 24 Medical (twenty-fo Branch ur) hours for 30 days. clindamycin 2021- Yes [id number] 300mg Take 1 Univers 300 mg 06-07 [id number] capsule by ity o f capsule 00:00: 05:59 mouth 3 [place] 00 :00 (three) Medical times Branch daily for 14 days. sulfamethox 2020-04 Yes [id number] 1{tbl} Take 1 Univers azole-trime -22 tablet by ity of thoprim 00:00: mouth 2 [place] (BACTRIM 00 (two) Medical DS) 800-160 times Branch mg per daily. tablet ipratropium 2020-04 Yes [id number] 3mL Inhale 3 Univers -albuteroL 0-28 mL every 4 ity of 0.5 mg-3 00:00: (four) [place] mg(2.5 mg 00 hours as Medica l base)/3 mL needed for [facility] nebulizer Wheezing solution or Shortness of Breath. albuterol 2019-0 Yes [id number] 2{puff} Inhale 2 Univers 90 6-06 Puffs ity of mcg/actuati 00:00: every 4 Humberto as on inhaler 00 (four) Medical hours as Branch needed for Wheezing or Shortness of Breath. Vital Signs Vital Name Observation Time Observation Value Comments Source Systolic blood 2021-06-13 20:15:00 104 mm[Hg] Univer sity [facility] Diastolic blood 2021-06-13 20:15:00 75 [facility]Hg[facility] [place] Heart rate 2021-06-13 20:15:00 112 /min [facility] Body weight 2021-06-13 20:15:00 63.504 kg [facility] BMI 2021-06-13 20:15:00 18.99 kg/m2 [facility] Procedures This patient has no known procedures. Encounters Start End Encounter Admission Attending Care Care Encounter Source Date/Time Date/Time Type Type Clinicians Facility Department ID 2021-06-13 2021-06-13 Office Andrew [facility] [id number] Univers 14:15:00 14:30:00 Visit [facility] [id number] it y of [place] [id number] Humberto as RAMESH?BLEA [id number] [address] MEDICAL OFFICE BUILDING Results This patient has no known results.
--- NOTE | 2021-07-11 05:25 | ER ---
Nurse's Notes [facility] Name: Iron Haynes Age: 61 yrs Sex: Male : 1960 Arrival Date: 07/11/2021 Time: 02:34 Bed 20 Private MD: Diagnosis: Presentation: 07/11 02:50 Chief complaint: Patient states: right foot pinky toe pain. infection present since lg3 January. pain is unbearable at this point. Coronavirus screen: Client denies travel out of the [place] in the last 14 days. At this time, the client does not indicate any symptoms associated with coronavirus-19. Ebola Screen: No symptoms or risks identified at this time. Initial Sepsis Screen: Does the patient meet any 2 criteria? No. Patient's initial sepsis screen is negative. Does the patient have a suspected source of infection? No. Patient's initial sepsis screen is negative. Risk Assessment: Do you want to hurt yourself or someone else? Patient reports no desire to harm self or others. Onset of symptoms is unknown. 02:50 Method Of Arrival: Wheelchair lg3 02:50 Acuity: EDUARD 3 lg3 Triage Assessment: 02:51 General: Appears in no apparent distress. uncomfortable, Behavior is calm, cooperative. lg3 Pain: Complains of pain in right foot Pain currently is 8 out of 10 on a pain scale. Pain began since january. EENT: No deficits noted. No signs and/or symptoms were reported regarding the EENT system. Neuro: No deficits noted. Level of Consciousness is awake, alert, obeys commands, Oriented to person, place, time, situation. Cardiovascular: No deficits noted. Denies lightheadedness, nausea, shortness of breath. Respiratory: No deficits noted. Airway is patent Trachea midline Respiratory effort is even, unlabored, Respiratory pattern is regular, symmetrical. GI: No deficits noted. No signs and/or symptoms were reported involving the gastrointestinal system. : No deficits noted. No signs and/or symptoms were reported regarding the genitourinary system. Derm: discoloration to right pinky toe. Musculoskeletal: No deficits noted. Circulation, motion, and sensation intact. Capillary refill < 3 seconds, Range of motion: intact in all extremities. Historical: - Allergies: 02:51 Codeine; lg3 - Home Meds: 02:51 Albuterol Inhl [Active]; albuterol sulfate Oral [Active]; Combivent Inhl [Active]; lg3 Levofloxacin Oral [Active]; clindamycin HCl Oral [Active]; - PMHx: 02:51 COPD; osteomyelitis; lg3 - PSHx: 02:51 bilateral inguinal hernia repair; lg3 - Immunization history:: Adult Immunizations up to date, Client reports having NOT received the Covid vaccine. - Social history:: Smoking status: Patient reports the use of cigarette tobacco products, smokes one-half pack cigarettes per day, Patient uses alcohol, occasionally. Screenin:56 Abuse screen: Denies threats or abuse. Denies injuries from another. Nutritional lg3 screening: No deficits noted. Tuberculosis screening: No symptoms or risk factors identified. Fall Risk None identified. Vital Signs: 02:50 BP 102 / 73; Pulse 97; Resp 17 S; Temp 98.1(O); Pulse Ox 98% on R/A; Weight 65.77 kg lg3 (R); Height 6 ft. 0 in. (182.88 cm) (R); Pain 9/10; 02:50 Body Mass Index 19.67 (65.77 kg, 182.88 cm) lg3 ED Course: 02:34 Patient arrived in ED. 02:51 Triage completed. lg3 02:51 Arm band placed on left wrist. lg3 03:11 Cedrick Giron MD is Attending Physician. [facility] 05:25 Jaz Jeong RN is Primary Nurse. sf1 Administered Medications: No medications were administered Outcome: 05:25 Patient left the ED. sf1 Signatures: Saba Hill RN RN 3 Cedrick Giron MD MD [facility] Tiny Vega Jaz Jeong RN RN sf1
--- NOTE | 2021-07-11 05:26 | EDPHYS ---
Physician Documentation [facility] Name: Iron Haynes Age: 61 yrs Sex: Male : 1960 Arrival Date: 07/11/2021 Time: 02:34 Bed 20 Private MD: ED Physician Cedrick Giron HPI: 07/11 04:12 This 61 yrs old Male presents to ER via Wheelchair with complaints of Foot Pain. mh7 04:12 The patient presents with pain, that is chronic. The complaints affect the right foot, mh7 little toe. Context: The problem was sustained at an unknown location, resulted from an unknown cause, Mechanism of Injury: None the patient can fully bear weight, the patient is able to ambulate, without difficulty. Onset: The symptoms/episode began/occurred 4 month(s) ago. Modifying factors: The symptoms are alleviated by hydrocodone, the symptoms are aggravated by nothing. Associated signs and symptoms: Pertinent negatives: calf tenderness, fever, nausea, numbness, rash, swelling, tingling, vomiting, warmth, weakness. Severity of symptoms: At their worst the symptoms were moderate, 7 day(s) ago, in the emergency department the symptoms are unchanged. Patient states that he was diagnosed with osteomyelitis of his little toe on his right foot about 4 months ago at [facility] and is currently taking antibiotics. He states that he still has pain in the toe. Denies any injuries, fever, nausea, vomiting, numbness/tingling, dizziness, or weakness.. Historical: - Allergies: 02:51 Codeine; lg3 - Home Meds: 02:51 Albuterol Inhl [Active]; albuterol sulfate Oral [Active]; Combivent Inhl [Active]; lg3 Levofloxacin Oral [Active]; clindamycin HCl Oral [Active]; - PMHx: 02:51 COPD; osteomyelitis; lg3 - PSHx: 02:51 bilateral inguinal hernia repair; lg3 - Immunization history:: Adult Immunizations up to date, Client reports having NOT received the Covid vaccine. - Social history:: Smoking status: Patient reports the use of cigarette tobacco products, smokes one-half pack cigarettes per day, Patient uses alcohol, occasionally. ROS: 04:12 Constitutional: Negative for fever, chills, and weight loss, Eyes: Negative for injury, mh7 pain, redness, and discharge, Neck: Negative for injury, pain, and swelling, Cardiovascular: Negative for chest pain, palpitations, and edema, Respiratory: Negative for shortness of breath, cough, wheezing, and pleuritic chest pain, Abdomen/GI: Negative for abdominal pain, nausea, vomiting, diarrhea, and constipation, Back: Negative for injury and pain, : Negative for injury, bleeding, discharge, and swelling, Neuro: Negative for headache, weakness, numbness, tingling, and seizure, Psych: Negative for depression, anxiety, suicide ideation, homicidal ideation, and hallucinations, Allergy/Immunology: Negative for hives, rash, and allergies, Endocrine: Negative for neck swelling, polydipsia, polyuria, polyphagia, and marked weight changes, Hematologic/Lymphatic: Negative for swollen nodes, abnormal bleeding, and unusual bruising. Exam: 04:12 Constitutional: This is a well developed, well nourished patient who is awake, alert, mh7 and in no acute distress. Head/Face: Normocephalic, atraumatic. Eyes: Pupils equal round and reactive to light, extra-ocular motions intact. Lids and lashes normal. Conjunctiva and sclera are non-icteric and not injected. Cornea within normal limits. Periorbital areas with no swelling, redness, or edema. Neck: Trachea midline, no thyromegaly or masses palpated, and no cervical lymphadenopathy. Supple, full range of motion without nuchal rigidity, or vertebral point tenderness. No Meningismus. Chest/axilla: Normal chest wall appearance and motion. Nontender with no deformity. No lesions are appreciated. Cardiovascular: Regular rate and rhythm with a normal S1 and S2. No gallops, murmurs, or rubs. Normal PMI, no JVD. No pulse deficits. Respiratory: Lungs have equal breath sounds bilaterally, clear to auscultation and percussion. No rales, rhonchi or wheezes noted. No increased work of breathing, no retractions or nasal flaring. Abdomen/GI: Soft, non-tender, with normal bowel sounds. No distension or tympany. No guarding or rebound. No evidence of tenderness throughout. Back: No spinal tenderness. No costovertebral tenderness. Full range of motion. Neuro: Awake and alert, GCS 15, oriented to person, place, time, and situation. Cranial nerves II-XII grossly intact. Motor strength 5/5 in all extremities. Sensory grossly intact. Cerebellar exam normal. Normal gait. Psych: Awake, alert, with orientation to person, place and time. Behavior, mood, and affect are within normal limits. 04:12 Skin: Warm, dry with normal turgor. Normal color with no rashes, no lesions, and no evidence of cellulitis. 04:12 Musculoskeletal/extremity: Extremities: noted in the right foot, little toe: erythema, pain, Scabbed sore, no swelling, no active bleeding. 04:12 Musculoskeletal/extremity: ROM: intact in all extremities, Circulation is intact in all extremities. Sensation intact. Compartment Syndrome exam of affected extremity: is normal. no numbness, no tingling, no sensation deficit, no palor, no weak pulses, Joints: All joints appear normal with full range of motion. Weight bearing: able to fully bear weight, without difficulty, Tendon exam: specific tendon testing normal through active and passive range of motion Vital Signs: 02:50 BP 102 / 73; Pulse 97; Resp 17 S; Temp 98.1(O); Pulse Ox 98% on R/A; Weight 65.77 kg lg3 (R); Height 6 ft. 0 in. (182.88 cm) (R); Pain 9/10; 02:50 Body Mass Index 19.67 (65.77 kg, 182.88 cm) lg3 MDM: 06:00 Differential diagnosis: fracture, sprain, foreign body, arthritis, gout, cellulitis. 7 Data reviewed: vital signs, nurses notes. Data interpreted: Pulse oximetry: on room air is 98 %. Interpretation: normal. Counseling: I had a detailed discussion with the patient and/or guardian regarding: the historical points, exam findings, and any diagnostic results supporting the discharge/admit diagnosis. Refusal of service: The patient/guardian displays adequate decision making capability and despite a detailed discussion of alternatives, benefits, risks, and consequences refuses: all lab tests, Medications, all X-rays. 06:00 ED course: Informed by nursing staff that patient refused any testing or treatment and mh7 left AGAINST MEDICAL ADVICE.. 06:43 Patient medically screened. mh7 Administered Medications: No medications were administered Disposition Summary: 07/11/21 05:25 Left Against Medical Advice Location: Home sf1 Condition: Fair sf1 Discharge Instructions: - Discharge Summary Sheet 7 - Foot Care, Adult [facility] Signatures: Saba Hill RN RN 3 Cedrick Giron MD MD 7 Jaz Jeong RN RN sf1
[2021-07-11 05:31] VITALS: BP 102/73; TEMP 98.1; O2SAT 98
== END 2021-07-11 05:25 | disposition left against medical advice (07) ==
LOC: ER 02:25
DX: M79.671 Pain in right foot (principal); M79.674 Pain in right toe(s); J44.9 Chronic obstructive pulmonary disease, unspecified; F17.210 Nicotine dependence, cigarettes, uncomplicated; Z88.5 Allergy status to narcotic agent
CPT/HCPCS: 99281

== ENCOUNTER 2022-10-29 03:52 | Observation (INO) | payer OTHER, SELFPAY ==
--- OUTSIDE RECORDS SUMMARY | 2022-10-29 03:59 | XMS REPORT | Continuity of Care Document ---
:1960 Author Organization [facility] t Address [address] [facility] [address] [place] [address] Care Team Providers Name Role Phone Betty Carmichael Primary Care Physician BETTY SCHMITZ Attending Clinician Unavailable Betty Carmichael Attending Clinician Jasmine Doshi RN Attending Clinician Unavailable AISHWARYA MADERA Attending Clinician Unavailable Matthew Monge MD Attending Clinician Aishwarya Madera MD Attending Clinician Simon Pacheco MD Attending Clinician FLORIAN NGUYEN Attending Clinician Unavailable Jonah Chauhan MD Attending Clinician Florian Nguyen DO Attending Clinician NGUYỄN GODDARD Attending Clinician Unavailable Nguyễn Goddard DO Attending Clinician Margret MARQUEZ, Joel Lutz Attending Clinician Unavailable JAYCE ST Attending Clinician Unavailable Jayce St MD Attending Clinician Ibis Roberts MD Attending Clinician LUISOsiris Pedraza Attending Clinician Unavailable Luis PAC, K Nancy Attending Clinician Andrew LOCO, Neo Attending Clinician Yadira MARQUEZ, Imtiaz Gatica Attending Clinician Unavailable WILLA BRODY Attending Clinician Unavailable Ronn LOCO, Willa Gilman Attending Clinician ANNEMARIE KEENAN Attending Clinician Unavailable 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, Annemarie Attending Clinician Salomón MARQUEZ, Areli Maravilla Attending Clinician Duncan LUKE, Ashlee Attending Clinician Richard LOCO, Elsie Attending Clinician Jean-Paul LOCO, Kamlesh Attending Clinician Daniel LOCO, Rusty Attending Clinician Ratna ANDREW, Onel Sales Attending Clinician Fuentes Cabrera MD Attending Clinician RUSTY SANCHEZ Attending Clinician Unavailable NEO MORALES Attending Clinician Unavailable CAHSITY PARIS Attending Clinician Unavailable Chasity Paris DO Attending Clinician Doctor Unassigned, Spivey Attending Clinician Unavailable SHERITA MAGAÑA Attending Clinician Unavailable Sherita Chi Attending Clinician Lab, Ang - Db Attending Clinician Unavailable Shashi [facility], Ewa L Attending Clinician Pob, Adc Lab Main Attending Clinician Unavailable Ashlee Cho RN Attending Clinician Unavailable Only, Adc Test Attending Clinician Unavailable Michael Sanchez MD Attending Clinician MICHAEL SANCHEZ Attending Clinician Unavailable Edwina Ferraro PA-C Attending Clinician Unknown, Attending Attending Clinician Unavailable UNKNOWN, ATTENDING Attending Clinician Unavailable Mandie Hubbard Attending Clinician [phone] [facility] MARQUEZ, Christiana Attending Clinician Unavailable Gonzalo Cardoza DO Attending Clinician EJ HARRIS Attending Clinician Unavailable ELSIE RAMOS Attending Clinician Unavailable MATTHEW MONGE Attending Clinician Unavailable [facility] Attending Clinician Unavailable AISHWARYA MADERA Admitting Clinician Unavailable Aishwarya Madera MD Admitting Clinician FLORIAN NGUYEN Admitting Clinician Unavailable Florian Nguyen DO Admitting Clinician NGUYỄN GODDARD Admitting Clinician Unavailable IBIS ROBERTS Admitting Clinician Unavailable Ibis Roberts MD Admitting Clinician Osiris SMITH Admitting Clinician Unavailable WILLA BRODY Admitting Clinician Unavailable Rusty Sanchez MD Admitting Clinician CHASITY PARIS Admitting Clinician Unavailable ELSIE RAMOS Admitting Clinician Unavailable MATTHEW MONGE Admitting Clinician Unavailable Payers Payer Name Policy Type Policy Number Effective Date Expiration Date Randy faulkner MEDICARE PART A [id number] 2022 \\T\\ B 00:00:00 Problems Condition Condition Condition Status Onset Resolution Last Treating Co mments Source Name Details Category Date Date Treatment Clinician Date COPD with COPD with Disease Active Uni vers acute acute 6-25 [place] [facility] Acute Acute Disease Active Univers exacerbati exacerbati 6-18 it y of on of on of 00:00: [place] chronic chronic 00 Medical obstructiv obstructiv Br anch e e pulmonary pulmonary disease disease (COPD) (COPD) Shortness Shortness Disease Active Uni vers of breath of breath 5-21 ity of 00:00: [address] Smoker Smoker Disease Active Univers 1-24 ity of 00:00: [address] COPD COPD Disease Active Univers (chronic (chronic 3-19 ity of obstructiv obstructiv [place] 00 Medical pulmonary pulmonary Bran ch disease) disease) Osteomyeli Osteomyeli Disease Active U nivers tis tis 3-15 ity of 00:00: [address] Hypoxia Hypoxia Disease Active 2017-04 Univers 2-26 ity of 00:00: [place] 00 Medical Branch Allergies, Adverse Reactions, Alerts Allergy Allergy Status Severity Reaction(s) Onset Inactive Treating Comm ents Source Name Type Date Date Clinician CODEINE DRUG Active N/V Univers INGREDI 05-18 ity of 00:00: [place] 00 Medical Branch Codeine Propensi Active Nausea Univers ty to and/or 05-18 ity of adverse Vomiting 00:00: [place] reaction 00 Medical s Branch Codeine Drug Active Unknown - Univer s Allergy See comments 05-18 ity of 00:00: [place] 00 Medical Branch Social History Social Habit Start Date Stop Date Quantity Comments Source History SDOH Social Unive rsity of Connections Get [place] Med ical Together Branch History SDOH Social Unive rsity of Connections [facility] Medical Branch History SDOH Social Unive rsity of Connections [place] [facility] Membership Branch History SDOH Social Unive rsity of Connections [place] [facility] Meetings Branch History SDOH University o f Physical Activity [facility] edical DPW Branch History SDOH University o f Alcohol Std Drinks [place] [facility] History SDOH University o f Alcohol Binge [place] [facility] al [facility] Alcohol intake 2022-10-24 2022-10-24 Current drinker Unive rsity of 00:00:00 00:00:00 of alcohol [place] [facility] (finding) Branch Cigarettes smoked 2022-10-22 2022-10-22 Univers ity of current (pack per 00:00:00 00:00:00 [facility] ) - Reported Branch Cigarette 2022-10-22 2022-10-22 University of pack-years 00:00:00 00:00:00 [place] [facility] Tobacco use and 2022-10-22 2022-10-22 Smokeless Universit y of exposure 00:00:00 00:00:00 tobacco non-user [facility] dical Branch History SDOH Social 2022-10-16 2022-10-16 5 Unive rsity of Connections Phone 00:00:00 00:00:00 [facility] edical Branch History SDOH Social 2022-10-16 2022-10-16 5 Unive rsity of Connections Living 00:00:00 00:00:00 [place] [facility] History SDOH 2022-10-16 2022-10-16 0 University o f Physical Activity 00:00:00 00:00:00 [facility] edical MPS Branch History SDOH 2022-10-16 2022-10-16 4 University o f Financial 00:00:00 00:00:00 [place] [facility] History SDOH Food 2022-10-16 2022-10-16 1 Univers ity of Worry 00:00:00 00:00:00 [place] [facility] History SDOH Food 2022-10-16 2022-10-16 1 Univers ity of Scarcity 00:00:00 00:00:00 [place] [facility] History SDOH 2022-10-16 2022-10-16 2 University o f Transport Med 00:00:00 00:00:00 [place] Medic al Branch History SDOH 2022-10-16 2022-10-16 2 University o f Transport Non-Med 00:00:00 00:00:00 [place] [facility] edical Branch History SDOH 2022-10-16 2022-10-16 2 University o f Housing Unable to 00:00:00 00:00:00 [place] [facility] edical Pay Branch History SDNC 2022-10-16 2022-10-16 1 University o f Housing Places 00:00:00 00:00:00 [facility] asl Lived Branch History SDNC 2022-10-16 2022-10-16 2 University o f Housing Homeless 00:00:00 00:00:00 [place] Me dical Last Year Branch History [facility] 2022-10-16 2022-10-16 1 University o f Alcohol Frequency 00:00:00 00:00:00 [facility] edical Branch Alcohol Comment 2022-10-15 2022-10-15 social Universit y of 00:00:00 00:00:00 [facility] Exposure to 2022-09-07 2022-09-17 Not sure University of SARS-CoV-2 (event) 00:00:00 00:52:00 [facility] History of tobacco 2019-06-17 Passive smoker Un iversity of use 00:00:00 [facility] Sex [birth year] At [birth year] Universit y of 00:00:00 00:00:00 [facility] Smoking Status Start Date Stop Date Source Ex-smoker 2022-10-22 00:00:00 2022-10-22 00:00:00 Universi ty of [facility] Smokes tobacco daily 2022-05-23 00:00:00 Univers ity of [facility] Medications Ordered Filled Start Stop Current Ordering Indication Dosage Frequency Signature Comments Components Source Medication Medication Date Date Medication? Clinician (SIG) Name Name predniSONE 2022- Yes [id number] 40mg Take 2 Univers 20 mg 10-24- tablets by ity of tablet 00:00: 04:59 mouth in [place] 00 :00 [facility] for 3 days. predniSONE 2022- Yes [id number] 40mg Take 2 Univers 20 mg 10-24 tablets by ity of tablet 00:00: 04:59 mouth in [place] 00 :00 [facility] for 3 days. predniSONE 2022- Yes [id number] 40mg Take 2 Univers 20 mg 10-24- tablets by ity of tablet 00:00: 04:59 mouth in [place] 00 :00 [facility] for 3 days. predniSONE 2022- Yes 40mg 40 mg, Univ ers (DELTASONE) 10-23 06-30 Oral, ity of tablet 40 14:00: 13:59 DAILY, 4 [place] as mg 00 :00 doses, Medical First dose Branch on 10/23/22 at 0900, Last dose on [place] 10/26/22 at 0900, Routine ipratropium Yes 3mL 3 mL, Unive rs -albuteroL 625 Inhalation ity of (DUONEB) 23:00: , Q6H, [place] 0.5 mg-3 00 First dose Medic al mg(2.5 mg on [facility] base)/3 mL 10/22/22 at nebulizer 1800, solution 3 Until mL Discontinu ed, Routine enoxaparin Yes 40mg 40 mg, Unive rs (LOVENOX) 6-25 Subcutaneo ity of injection 22:00: [place]ILY, [place] 40 mg 00 First dose Medical on [facility] 10/22/22 at 1700, Until Discontinu ed, Routine nicotine Yes 1{patch 1 Patch, Un von (NICODERM) 25 } Topical, ity o f 14 mg/24 hr 20:15: Administer [place] patch 1 00 over 24 Medical Patch Hours, Branch Q24H, First dose on [place] 10/22/22 at 1515, Until Discontinu ed, Routine guaiFENesin 0 Yes 200mg 200 mg, Un von 100 mg/5 mL 6-25 Oral, ity of solution 19:16: Q6HPRN, [place] 200 mg 07 Starting Medical on Sun Branch 10/22/22 at 1416, Until Discontinu ed, Routine, Cough ondansetron 2022-0 Yes 4mg 4 mg, Slow Univers (ZOFRAN 6-25 IV Push, ity of (PF)) 19:14: Q6HPRN, [place] injection 4 47 Starting Medi sal mg on Sun Branch 10/22/22 at 1414, Until Discontinu ed, Routine, Nausea and Vomiting (N/V) acetaminoph 2022-0 Yes 650mg 650 mg, Un von en 625 Oral, ity of (TYLENOL) 19:14: Q6HPRN, [place] tablet 650 36 Starting Medic al mg on Sun Branch 10/22/22 at 1414, Until Discontinu ed, Routine, Pain (scale 1-3), Temp > 38 C ipratropium 2022- No 3mL 3 mL, Univ ers -albuteroL 10-2225 Inhalation it y of (DUONEB) 17:00: 13:57 , QID, [place] 0.5 mg-3 00 :48 First dose Medic al mg(2.5 mg on Sun Branch base)/3 mL 10/22/22 at nebulizer 1200, solution 3 Until mL Discontinu ed, Routine ipratropium 2022- No 6mL 6 mL, Univ ers -albuteroL 10-22 Inhalation it y of (DUONEB) 14:45: 13:58 , ONCE, 1 [place] as 0.5 mg-3 00 :00 dose, On Medical mg(2.5 mg Sun Branch base)/3 mL 10/22/22 at nebulizer 0945, NAEEM solution 6 mL methylpredn 2022- No 125mg 125 mg, U nivers isolone sod 10-22 Intravenou i ty of succ 14:45: 13:49 s, ONCE, 1 [place] (SOLU-MEDRO 00 :00 dose, On Medi sal L) Sun Branch injection 10/22/22 at 125 mg 0945, 2 mL predniSONE 2022- Yes [id number] 40mg Take 2 Univers 20 mg 6-21 06-25 tablets by ity of tablet 00:00: 04:59 mouth in [place] 00 :00 the Medical morning Branch for 3 days. predniSONE 2022-0 2022- Yes [id number] 40mg Take 2 Univers 20 mg 6-21 06-25 tablets by ity of tablet 00:00: 04:59 mouth in [place] 00 :00 the Medical morning Branch for 3 days. predniSONE 2022-0 2022- Yes [id number] 40mg Take 2 Univers 20 mg 6-21 06-25 tablets by ity of tablet 00:00: 04:59 mouth in [place] 00 :00 the Medical morning Branch for 3 days. albuterol 2022-0 Yes [id number] 2.5mg Inhale 3 Univers 2.5 mg /3 6-20 mL every 2 ity of mL (0.083 00:00: (two) [place] %) 00 hours as Medical nebulizer needed for Bran ch solution Shortness of Breath or Wheezing. guaiFENesin 2022-0 Yes [id number] 200mg Take 10 mL Univers 100 mg/5 mL 6-20 by mouth ity of solution 00:00: every 4 [place] 00 (four) Medical hours as Branch needed for Cough. albuterol 2022-0 Yes [id number] 2.5mg Inhale 3 Univers 2.5 mg /3 6-20 mL every 2 ity of mL (0.083 00:00: (two) [place] %) 00 hours as Medical nebulizer needed for Bran ch solution Shortness of Breath or Wheezing. guaiFENesin 2022-0 Yes [id number] 200mg Take 10 mL Univers 100 mg/5 mL 6-20 by mouth ity of solution 00:00: every 4 [place] 00 (four) Medical hours as Branch needed for Cough. albuterol 2022-0 Yes [id number] 2.5mg Inhale 3 Univers 2.5 mg /3 6-20 mL every 2 ity of mL (0.083 00:00: (two) [place] %) 00 hours as Medical nebulizer needed for Bran ch solution Shortness of Breath or Wheezing. guaiFENesin 3-0 Yes [id number] 200mg Take 10 mL Univers 100 mg/5 mL 6-20 by mouth ity of solution 00:00: every 4 [place] 00 (four) Medical hours as Branch needed for Cough. albuterol 3-0 Yes [id number] 2.5mg Inhale 3 Univers 2.5 mg /3 6-20 mL every 2 ity of mL (0.083 00:00: (two) [place] %) 00 hours as Medical nebulizer needed for Bran ch solution Shortness of Breath or Wheezing. guaiFENesin 3-0 Yes [id number] 200mg Take 10 mL Univers 100 mg/5 mL 6-20 by mouth ity of solution 00:00: every 4 [place] 00 (four) Medical hours as Branch needed for Cough. albuterol 3-0 Yes [id number] 2.5mg Inhale 3 Univers 2.5 mg /3 6-20 mL every 2 ity of mL (0.083 00:00: (two) [place] %) 00 hours as Medical nebulizer needed for Bran ch solution Shortness of Breath or Wheezing. guaiFENesin 3-0 Yes [id number] 200mg Take 10 mL Univers 100 mg/5 mL 6-20 by mouth ity of solution 00:00: every 4 [place] 00 (four) Medical hours as Branch needed for Cough. albuterol 2022-0 Yes [id number] 2.5mg Inhale 3 Univers 2.5 mg /3 6-20 mL every 2 ity of mL (0.083 00:00: (two) [place] %) 00 hours as Medical nebulizer needed for Bran ch solution Shortness of Breath or Wheezing. guaiFENesin 3-0 Yes [id number] 200mg Take 10 mL Univers 100 mg/5 mL 6-20 by mouth ity of solution 00:00: every 4 [place] 00 (four) Medical hours as Branch needed for Cough. nicotine 14 2022- Yes [id number] 1{patch Apply 1 Univers mg/24 hr 6-20 07-21 } Patch to ity of patch 00:00: 04:59 area(s) [place] 00 :00 every 24 Medical (twenty-fo Branch ur) hours for 30 days. nicotine 14 2022- Yes [id number] 1{patch Apply 1 Univers mg/24 hr 6-20 07-21 } Patch to ity of patch 00:00: 04:59 area(s) [place] 00 :00 every 24 Medical (twenty-fo Branch ur) hours for 30 days. nicotine 14 2022- Yes [id number] 1{patch Apply 1 Univers mg/24 hr 10-17 } Patch to ity of patch 00:00: 04:59 area(s) [place] 00 :00 every 24 Medical (twenty-fo Branch ur) hours for 30 days. nicotine 14 2022- Yes [id number] 1{patch Apply 1 Univers mg/24 hr 10-17 } Patch to ity of patch 00:00: 04:59 area(s) [place] 00 :00 every 24 Medical (twenty-fo Branch ur) hours for 30 days. nicotine 14 2022- Yes [id number] 1{patch Apply 1 Univers mg/24 hr 10-17 } Patch to ity of patch 00:00: 04:59 area(s) [place] 00 :00 every 24 Medical (twenty-fo Branch ur) hours for 30 days. nicotine 14 2022- Yes [id number] 1{patch Apply 1 Univers mg/24 hr 10-17 } Patch to ity of patch 00:00: 04:59 area(s) [place] 00 :00 every 24 Medical (twenty-fo Branch ur) hours for 30 days. predniSONE 2022- Yes 40mg 40 mg, Univ ers (DELTASONE) 10-16 06-24 Oral, ity of tablet 40 14:00: 13:59 DAILY, 5 [place] as mg 00 :00 doses, Medical First dose Branch on 10/16/22 at 0900, Last dose on Sun10/20/22 at 0900, Routine enoxaparin Yes 40mg 40 mg, Unive rs (LOVENOX) 10-15 Subcutaneo ity of injection 22:00: [place], DAILY, [place] 40 mg 00 First dose Medical on Sun Branch 10/15/22 at 1700, Until Discontinu ed, Routine nicotine Yes 1{patch 1 Patch, Un von (NICODERM) 18 } Topical, ity o f 14 mg/24 hr 17:30: Administer [place] patch 1 00 over 24 Medical Patch Hours, Branch Q24H, First dose on 10/15/22 at 1230, Until Discontinu ed, Routine ipratropium Yes 3mL 3 mL, Unive rs -albuteroL 18 Inhalation ity of (DUONEB) 17:00: , Q4H, [place] 0.5 mg-3 00 First dose Medic al mg(2.5 mg on Sun Branch base)/3 mL 10/15/22 at nebulizer 1200, solution 3 Until mL Discontinu ed, Routine albuterol 2022-0 Yes 2.5mg 2.5 mg, Univ ers (PROVENTIL) 18 Inhalation it y of 2.5 mg /3 16:26: , Q2HPRN, [place] as mL (0.083 27 Starting Medica l %) on [place] Branch nebulizer 10/15/22 at solution 1126, 2.5 mg Until Discontinu ed, Routine, Shortness of Breath, Wheezing azithromyci 0 2022- No 500mg 500 mg, IV Univers n 10-15 Piggyback, ity of (ZITHROMAX) 15:15: 17:17 Q24H ABX, [place] 500 mg in 00 :00 3 doses, Medica l NaCl 0.9% First dose Bran ch (NS) 250 mL on Sun VIAL-MATE 10/15/22 at IV 1015, Last piggyback dose on 10/17/22 at 1015, Administer over 60 Minutes, 250 mL
Reas on for Anti-Infec tive: Empiric Therapy for Suspected Infection< br>Empiric Therapy Site: Respirator y
Durat ion of therapy: 72 hours ipratropium 0 2022- No 3mL 3 mL, Univ ers -albuteroL 10-1518 Inhalation it y of (DUONEB) 14:30: 13:42 , ONCE [place] 0.5 mg-3 00 :00 NOW, 1 Medical mg(2.5 mg dose, On Branch base)/3 mL Sun nebulizer 10/15/22 at solution 3 0930, NAEEM mL guaiFENesin 0 Yes 200mg 200 mg, Un von 100 mg/5 mL 10-15 Oral, ity of solution 14:03: Q4HPRN, [place] 200 mg 20 Starting Medical on Sun Branch 10/15/22 at 0903, Until Discontinu ed, Routine, Cough acetaminoph 0 Yes 650mg 650 mg, Un von en 10-15 Oral, ity of (TYLENOL) 14:02: Q6HPRN, [place] tablet 650 39 Starting Medic al mg on [place] Branch 10/15/22 at 0902, Until Discontinu ed, Routine, Pain (scale 1-3) ipratropium 2022- No 3mL 3 mL, Univ ers -albuteroL 10-15 Inhalation it y of (DUONEB) 13:30: 12:42 , ONCE [place] 0.5 mg-3 00 :00 NOW, 1 Medical mg(2.5 mg dose, On Branch base)/3 mL Sun nebulizer 10/15/22 at solution 3 0830, NAEEM mL levoFLOXaci 2022- No 500mg 500 mg, U nivers n 10-15 Oral, ity of (LEVAQUIN) 12:30: 12:28 ONCE, 1 [place] as tablet 500 00 :00 dose, On Medic al mg [facility] 10/15/22 at 0730, NAEEM
Re ason for Anti-Infec tive: Empiric Therapy for Suspected Infection< br>Empiric Therapy Site: Respirator y
Durat ion of therapy: 72 hours ipratropium 2022- No 6mL 6 mL, Univ ers -albuteroL 10-15 Inhalation it y of (DUONEB) 12:15: 11:30 , ONCE, 1 [place] 0.5 mg-3 00 :00 dose, On Medical mg(2.5 mg [facility] base)/3 mL 10/15/22 at nebulizer 0715, solution 6 Routine mL methylPREDN 2022- No 125mg 125 mg, U nivers ISolone sod 10-15 Intravenou i ty of succ 11:30: 11:30 s, ONCE, 1 [place] (SOLU-MEDRO 00 :00 dose, On Medi sal L (PF)) [facility] injection 10/15/22 at 125 mg 0630, NAEEM ondansetron 2022- No 4mg 4 mg, Slow Univers (ZOFRAN 10-02 IV Push, ity of (PF)) 13:30: 13:23 ONCE, 1 [place] injection 4 00 :00 dose, On Medi sal mg 10/02/22 Branch at 0830, NAEEM iopamidol 2022- No [id number] 70mL 70 mL, U nivers (ISOVUE 10-02-05 Intravenou ity o f 370-500 mL) 13:29: 13:30 s, ONCE, 1 [place] injection 00 :00 dose, On Medica l 70 mL Sun10/02/22 Branch at 0845, Routine maalox:diph 2022-2022- No 15mL 15 mL, Uni vers enhydrAMINE 10-02 06-05 Oral, ity of :lidocaine 13:15: 13:16 ONCE, 1 [place] as 2 % viscous 00 :00 dose, On Medi sal 1:1:1 Sun10/02/22 Branch ([facility]MOUT at 0815, [facility] Routine oral suspension 15 mL sucralfate Yes [id number] 1g Take 1 U nivers 1 gram 6-05 tablet by ity of tablet 00:00: mouth [place] 00 before Medical meals and Branch at bedtime. dicyclomine Yes [id number] 10mg Take 1 Univers (BENTYL) 10 6-05 capsule by it y of mg capsule 00:00: mouth [place] 00 every 8 Medical (eight) Branch hours as needed for Abdominal pain. ondansetron Yes [id number] 4mg Take 1 Univers 4 mg 6-05 tablet by ity of disintegrat 00:00: mouth [place] ing tablet 00 every 8 Medica l (eight) Branch hours as needed for Nausea and Vomiting (N/V). omeprazole 2022- Yes [id number] 20mg Take 1 Univers 20 mg 6-05 07-06 capsule by ity of capsule 00:00: 04:59 mouth in [place] 00 :00 the Medical morning Branch for 30 days. sucralfate 2022-0 2022- No [id number] 1g Take 1 Univers 1 gram 6-05 06-18 tablet by ity of tablet 00:00: 00:00 mouth [place] 00 :00 before Medical meals and Branch at bedtime. dicyclomine 2022-0 2022- No [id number] 10mg Take 1 Univers (BENTYL) 10 6-05 06-18 capsule by i ty of mg capsule 00:00: 00:00 mouth [place] 00 :00 every 8 Medical (eight) Branch hours as needed for Abdominal pain. ondansetron 2022- No [id number] 4mg Take 1 Univers 4 mg 10-0218 tablet by ity of disintegrat 00:00: 00:00 [place] tablet 00 :00 every 8 Medica l (eight) Branch hours as needed for Nausea and Vomiting (N/V). omeprazole 2022- No [id number] 20mg Take 1 Univers 20 mg 6-09 02-18 capsule by ity of capsule 00:00: 00:00 mouth in [place] 00 :00 [facility] for 30 days. predniSONE 2022- Yes [id number] 40mg Take 2 Univers 20 mg 5-23 -28 tablets by ity of tablet 00:00: 04:59 mouth in [place] 00 :00 [facility] for 4 days. predniSONE 2022- Yes [id number] 40mg Take 2 Univers 20 mg 5-23 -28 tablets by ity of tablet 00:00: 04:59 mouth in [place] 00 :00 [facility] for 4 days. predniSONE Yes 40mg 40 mg, Unive rs (DELTASONE) 09-18 Oral, ity of tablet 40 14:00: DAILY, [place] mg 00 First dose Medical (after Branch last modificati on) on Sun09/18/22 at 0900, Until Discontinu ed, Routine azithromyci 2022- Yes 500mg 500 mg, IV Univers n 09-18 05-27 Piggyback, ity of (ZITHROMAX) 08:30: 08:29 Q24H ABX, [place] 500 mg in 00 :00 5 doses, Medica l NaCl 0.9% First dose Bran ch (NS) 250 mL (after VIAL-MATE last IV reorder) piggyback on Sun09/18/22 at 0330, Last dose on Sun09/22/22 at 0330, Administer over 60 Minutes, 250 mL
Reas on for Anti-Infec tive: Empiric Therapy for Suspected Infection< br>Empiric Therapy Site: Respirator y
Durat ion of therapy: 72 hours cefTRIAXone 2022- Yes 1000mg 1,000 mg, Univers (ROCEPHIN) 09-18 IV ity of 1,000 mg in 08:00: 07:59 [facility] [place] NaCl 0.9% 00 :00 Q24H ABX, Medic al (NS) 100 mL 5 doses, Bran ch MINI-BAG First dose (after last reorder) on 09/18/22 at 0300, Last dose on Sun09/22/22 at 0300, Administer over 30 Minutes, 100 mL
Reas on for Anti-Infec tive: Empiric Therapy for Suspected Infection< br>Empiric Therapy Site: Respirator y
Durat ion of therapy: 72 hours albuterol 2022- Yes [id number] 2{puff} Inhale 2 Univers 90 5-22 06-22 Puffs ity of mcg/actuati 00:00: 04:59 every 4 [place] on inhaler 00 :00 (four) Medical hours as Branch needed for Wheezing or Shortness of Breath for up to 30 days. albuterol 2022- Yes [id number] 2{puff} Inhale 2 Univers 90 5-22 06-22 Puffs ity of mcg/actuati 00:00: 04:59 every 4 [place] on inhaler 00 :00 (four) Medical hours as Branch needed for Wheezing or Shortness of Breath for up to 30 days. albuterol 2022- Yes [id number] 2{puff} Inhale 2 Univers 90 5-22 06-22 Puffs ity of mcg/actuati 00:00: 04:59 every 4 [place] on inhaler 00 :00 (four) Medical hours as Branch needed for Wheezing or Shortness of Breath for up to 30 days. albuterol 2022- No [id number] 2{puff} Inhale 2 Univers 90 5-22 06-20 Puffs ity of mcg/actuati 00:00: 00:00 every 4 [place] on inhaler 00 :00 (four) Medical hours as Branch needed for Wheezing or Shortness of Breath for up to 30 days. amoxicillin 2022- Yes [id number] 1{tbl} Take 1 Univers -clavulanat 09-18 tablet by it y of e 00:00: 04:59 mouth in [place] (AUGMENTIN) 00 :00 the Medical 875-125 mg morning Branch per tablet and 1 tablet in the evening. Do all this for 6 days. amoxicillin 2022- Yes [id number] 1{tbl} Take 1 Univers -clavulanat 09-18 tablet by it y of e 00:00: 04:59 mouth in [place] (AUGMENTIN) 00 :00 the Medical 875-125 mg morning Branch per tablet and 1 tablet in the evening. Do all this for 6 days. azithromyci 2022- Yes [id number] 250mg Take 1 Univers n 250 mg 09-18 tablet by ity o f tablet 00:00: 04:59 mouth in [place] 00 :00 the Medical morning Branch for 4 days. azithromyci 2022- Yes [id number] 250mg Take 1 Univers n 250 mg 09-18 tablet by ity o f tablet 00:00: 04:59 mouth in [place] 00 :00 the Medical morning Branch for 4 days. methylpredn 2022- No 40mg 40 mg, Uni vers isolone sod 09-17- Intravenou i ty of succ 17:00: 18:29 s, Q6H, [place] (SOLU-MEDRO 00 :15 First dose Me dical L) (after Branch injection last 40 mg modificati on) on 09/17/22 at 1200, Until Discontinu ed, Routine enoxaparin Yes 40mg 40 mg, Unive rs (LOVENOX) - Subcutaneo ity of injection 14:00: [place], [place], [place] 40 mg 00 First dose Medical on [place] 09/17/22 at 0900, Until Discontinu ed, Routine Fluticasone 2022-0 Yes 1{puff} 1 Puff, Univers -Salmeterol 5-21 Inhalation it y of (ADVAIR) 13:00: , Q12H, [place] 100-50 00 First dose Medical mcg/dose on [place] [facility] inhalation 09/17/22 at disk 1 Puff 0800, Until Discontinu ed, Routine ipratropium 0 Yes 3mL 3 mL, Unive rs -albuteroL 5-21 Inhalation ity of (DUONEB) 13:00: , QID, [place] 0.5 mg-3 00 First dose Medic al mg(2.5 mg on [facility] base)/3 mL 09/17/22 at nebulizer 0800, solution 3 Until mL Discontinu ed, Routine guaiFENesin 2022-0 Yes 400mg 400 mg, Un von (FENESIN 09-17 Oral, ity of IR) tablet 11:52: Q4[place]PRN[place] mg 07 Starting Medical on [place] 09/17/22 at 0652, Until Discontinu ed, Routine, Congestion /Allergies , Cough ipratropium 0 Yes .5mg 0.5 mg, Uni vers (ATROVENT) 09-17 Inhalation ity of 0.02 % 11:49: , Q4HPRN, [place] nebulizer 39 Starting Medica l solution on [facility] 0.5 mg 09/17/22 at 0649, Until Discontinu ed, Routine, Wheezing, Shortness of Breath methylpredn 2022- No 125mg 125 mg, U nivers isolone sod 09-17 Intravenou i ty of succ 11:00: 11:50 s, Q6H, [place] (SOLU-MEDRO 00 :26 First dose Me dical L) on [facility] injection 09/17/22 at 125 mg 0600, Until Discontinu ed, Routine cefTRIAXone 2022- No 1000mg 1,000 mg, Univers (ROCEPHIN) 09-17 IV ity of 1,000 mg in 09:00: 08:40 [place], [place] NaCl 0.9% 00 :00 ONCE, 1 Medical (NS) 100 mL dose, On Bran ch MINI-BAG [place] 09/17/22 at 0400, Administer over 30 Minutes, 100 mL
Reas on for Anti-Infec tive: Empiric Therapy for Suspected Infection< br>Empiric Therapy Site: Respirator y
Durat ion of therapy: 72 hours azithromyci 2022- No 500mg 500 mg, IV Univers n 09-17 Piggyback, ity of (ZITHROMAX) 08:45: 09:44 ONCE, 1 [place] 500 mg in 00 :00 dose, On Medica l NaCl 0.9% [place] (NS) 250 mL 09/17/22 at VIAL-MATE 0345, IV Administer piggyback over 60 Minutes, 250 mL
R lenard for Anti-Infec tive: Empiric Therapy for Suspected Infection< br>Empiric Therapy Site: Respirator y
Durat ion of therapy: 72 hours ondansetron 2022-0 Yes 4mg 4 mg, Slow Univers (ZOFRAN 09-17 IV Push, ity of (PF)) 08:39: Q6HPRN, [place] injection 4 18 Starting Medi sal mg on [place] Branch 09/17/22 at 0339, Until Discontinu ed, Routine, Nausea and Vomiting (N/V) acetaminoph 2022-0 Yes 650mg 650 mg, Un von en 09-17 Oral, ity of (TYLENOL) 08:39: Q6HPRN, [place] tablet 650 09 Starting Medic al mg on [facility] 09/17/22 at 0339, Until Discontinu ed, Routine, Pain (scale 1-3) ipratropium 2022-0 2022- No 3mL 3 mL, Univ ers -albuteroL 09-17 Inhalation it y of (DUONEB) 08:30: 07:24 , ONCE, 1 [place] 0.5 mg-3 00 :00 dose, On Medical mg(2.5 mg [place] base)/3 mL 09/17/22 at nebulizer 0330, solution 3 Routine mL magnesium 2022-0 2022- No 2g 2 g, IV Univ ers sulfate in 09-17 Piggyback, it y of water 2 07:00: 06:41 Administer [place] gram/50 mL 00 :00 over 60 Medica l (4 %) Minutes, Branch infusion 2 ONCE, 1 g dose, On 09/17/22 at 0200, Routine ipratropium 3-0 Yes [id number] USE 1 VIAL Univers -albuteroL 5-16 IN ity of 0.5 mg-3 00:00: NEBULIZER [place] mg(2.5 mg 00 EVERY 4 Medical base)/3 mL HOURS Branc h nebulizer NEEDED FOR solution WHEEZING OR SHORTNESS OF BREATH ipratropium 3-0 Yes [id number] USE 1 VIAL Univers -albuteroL 5-16 IN ity of 0.5 mg-3 00:00: NEBULIZER [place] mg(2.5 mg 00 EVERY 4 Medical base)/3 mL HOURS Branc h nebulizer NEEDED FOR solution WHEEZING OR SHORTNESS OF BREATH ipratropium 2023-0 Yes USE 1 VIAL Univers -albuteroL 5-16 IN ity of 0.5 mg-3 00:00: NEBULIZER [place] mg(2.5 mg 00 EVERY 4 Medical base)/3 mL HOURS Branc h nebulizer NEEDED FOR solution WHEEZING OR SHORTNESS OF BREATH ipratropium 2023-0 Yes USE 1 VIAL Univers -albuteroL 5-16 IN ity of 0.5 mg-3 00:00: NEBULIZER [place] mg(2.5 mg 00 EVERY 4 Medical base)/3 mL HOURS Branc h nebulizer NEEDED FOR solution WHEEZING OR SHORTNESS OF BREATH ipratropium 3-0 Yes USE 1 VIAL Univers -albuteroL 5-16 IN ity of 0.5 mg-3 00:00: NEBULIZER [place] mg(2.5 mg 00 EVERY 4 Medical base)/3 mL HOURS Branc h nebulizer NEEDED FOR solution WHEEZING OR SHORTNESS OF BREATH ipratropium 3-0 Yes USE 1 VIAL Univers -albuteroL 5-16 IN ity of 0.5 mg-3 00:00: NEBULIZER [place] mg(2.5 mg 00 EVERY 4 Medical base)/3 mL HOURS Branc h nebulizer NEEDED FOR solution WHEEZING OR SHORTNESS OF BREATH ipratropium 3-0 Yes USE 1 VIAL Univers -albuteroL 5-16 IN ity of 0.5 mg-3 00:00: NEBULIZER [place] mg(2.5 mg 00 EVERY 4 Medical base)/3 mL HOURS Branc h nebulizer NEEDED FOR solution WHEEZING OR SHORTNESS OF BREATH ipratropium 2023-0 Yes USE 1 VIAL Univers -albuteroL 5-16 IN ity of 0.5 mg-3 00:00: NEBULIZER [place] mg(2.5 mg 00 EVERY 4 Medical base)/3 mL HOURS Branc h nebulizer NEEDED FOR solution WHEEZING OR SHORTNESS OF BREATH ipratropium 2023-0 Yes [id number] USE 1 VIAL Univers -albuteroL 5-16 IN ity of 0.5 mg-3 00:00: NEBULIZER [place] mg(2.5 mg 00 EVERY 4 Medical base)/3 mL HOURS Branc h nebulizer NEEDED FOR solution WHEEZING OR SHORTNESS OF BREATH ipratropium 2022-0 Yes [id number] USE 1 VIAL Univers -albuteroL 5-16 IN ity of 0.5 mg-3 00:00: NEBULIZER [place] mg(2.5 mg 00 EVERY 4 Medical base)/3 mL HOURS Branc h nebulizer NEEDED FOR solution WHEEZING OR SHORTNESS OF BREATH metoclopram 2022- No 10mg 10 mg, Uni vers [place]inda HCl 08-21 Slow IV ity of (REGLAN) 01:15: 00:35 [place], [place] injection 00 :00 ONCE, 1 Medical 10 mg dose, On Branch [place] 08/20/22 at 2015, NAEEM levalbutero 2022- No 1.25mg 1.25 mg, Univers l (XOPENEX) 08-20 Inhalation i ty of nebulizer 23:45: 22:56 , ONCE, 1 [place] solution 00 :00 dose, On Medical 1.25 mg [facility] 08/20/22 at 1845, Routine ipratropium 2022- No .5mg 0.5 mg, Un von (ATROVENT) 08-20 Inhalation it y of 0.02 % 23:45: 22:56 , ONCE, 1 [place] nebulizer 00 :00 dose, On Medica l solution [facility] 0.5 mg 08/20/22 at 1845, Routine ondansetron 2022- No 4mg 4 mg, Slow Univers (ZOFRAN 08-20 IV Push, ity of (PF)) 23:30: 23:30 ONCE, 1 [place] injection 4 00 :00 dose, On Medi sal mg [facility] 08/20/22 at 1830, NAEEM morpHINE (2 2022- No 2mg 2 mg, Slow Univers mg/mL) 08-20 IV Push, ity of injection 2 23:30: 23:30 ONCE, 1 [place] mg 00 :00 dose, On Medical [place] Branch 08/20/22 at 1830, STAT iopamidol 2022- No [id number] 100mL 100 mL, Univers (ISOVUE 08-20 Intravenou ity o f 370-500 mL) 23:11: 23:14 s, ONCE, 1 [place] injection 00 :00 dose, On Medica l 100 mL [place] 08/20/22 at 1830, Routine maalox:diph 2022- No 15mL 15 mL, Uni vers enhydrAMINE 08-20 Oral, ity of :lidocaine 23:00: 22:51 ONCE, 1 [place] 2 % viscous 00 :00 dose, On Medi sal 1:1:1 [place] ([facility] 08/20/22 at [facility]) 1800, oral Routine suspension 15 mL famotidine 2022- No 20mg 20 mg, Univ ers (PEPCID 08-20 Slow IV ity of (PF)) 23:00: 22:51 Push, [place] injection 00 :00 ONCE, 1 Medical 20 mg dose, On Branch 08/20/22 at 1800, NAEEM metoclopram 3-0 Yes [id number] 10mg Take 1 Univers linda HCl 10 4-23 tablet by ity of mg tablet 00:00: mouth [place] 00 every 6 Medical (six) Branch hours. metoclopram 3-0 Yes [id number] 10mg Take 1 Univers linda HCl 10 4-23 tablet by ity of mg tablet 00:00: mouth [place] 00 every 6 Medical (six) Branch hours. metoclopram 2023-0 Yes [id number] 10mg Take 1 Univers linda HCl 10 4-23 tablet by ity of mg tablet 00:00: mouth [place] 00 every 6 Medical (six) Branch hours. metoclopram 2023-0 Yes [id number] 10mg Take 1 Univers linda HCl 10 4-23 tablet by ity of mg tablet 00:00: mouth [place] 00 every 6 Medical (six) Branch hours. metoclopram 2023-0 Yes [id number] 10mg Take 1 Univers linda HCl 10 4-23 tablet by ity of mg tablet 00:00: mouth [place] 00 every 6 Medical (six) Branch hours. metoclopram 2023-0 202- No [id number] 10mg Take 1 Univers linda HCl 10 4-23 06-18 tablet by ity of mg tablet 00:00: 00:00 mouth [place] 00 :00 every 6 Medical (six) Branch hours. ipratropium 2023-0 Yes [id number] .5mg Inhale 2.5 Univers 0.02 % 3-29 mL every 6 ity of nebulizer 00:00: (six) [place] solution 00 hours as Medical needed for Branch Wheezing or Shortness of Breath. albuterol 2023-0 Yes [id number] 2{puff} Inhale 2 Univers 90 3-29 Puffs ity of mcg/actuati 00:00: every 6 [place] on inhaler 00 (six) Medical hours as Branch needed for Wheezing or Shortness of Breath. ipratropium 2023-0 Yes [id number] .5mg Inhale 2.5 Univers 0.02 % 3-29 mL every 6 ity of nebulizer 00:00: (six) [place] solution 00 hours as Medical needed for Branch Wheezing or Shortness of Breath. albuterol 2023-0 Yes [id number] 2{puff} Inhale 2 Univers 90 3-29 Puffs ity of mcg/actuati 00:00: every 6 [place] on inhaler 00 (six) Medical hours as Branch needed for Wheezing or Shortness of Breath. ipratropium 2023-0 Yes [id number] .5mg Inhale 2.5 Univers 0.02 % 3-29 mL every 6 ity of nebulizer 00:00: (six) [place] solution 00 hours as Medical needed for Branch Wheezing or Shortness of Breath. ipratropium 2023-0 Yes [id number] .5mg Inhale 2.5 Univers 0.02 % 3-29 mL every 6 ity of nebulizer 00:00: (six) [place] solution 00 hours as Medical needed for Branch Wheezing or Shortness of Breath. ipratropium 2023-0 Yes [id number] .5mg Inhale 2.5 Univers 0.02 % 3-29 mL every 6 ity of nebulizer 00:00: (six) [place] solution 00 hours as Medical needed for Branch Wheezing or Shortness of Breath. ipratropium 2023-0 Yes [id number] .5mg Inhale 2.5 Univers 0.02 % 3-29 mL every 6 ity of nebulizer 00:00: (six) [place] solution 00 hours as Medical needed for Branch Wheezing or Shortness of Breath. ipratropium 2022-0 2022- No [id number] .5mg Inhale 2.5 Univers 0.02 % 3-29 06-20 mL every 6 ity of nebulizer 00:00: 00:00 (six) [place] solution 00 :00 hours as Medical needed for Branch Wheezing or Shortness of Breath. albuterol 2022-0 2022- No [id number] 2{puff} Inhale 2 Univers 90 3-29 05-16 Puffs ity of mcg/actuati 00:00: 00:00 every 6 [place] on inhaler 00 :00 (six) Medical hours as Branch needed for Wheezing or Shortness of Breath. ipratropium 2022-0 Yes [id number] USE 3 ML Univers -albuteroL 3-03 IN ity of 0.5 mg-3 00:00: NEBULIZER [place] mg(2.5 mg 00 EVERY 4 Medical base)/3 mL HOURS Branc h nebulizer NEEDED FOR solution WHEEZING OR SHORTNESS OF BREATH ipratropium 2022-0 Yes [id number] USE 3 ML Univers -albuteroL 3-03 IN ity of 0.5 mg-3 00:00: NEBULIZER [place] mg(2.5 mg 00 EVERY 4 Medical base)/3 mL HOURS Branc h nebulizer NEEDED FOR solution WHEEZING OR SHORTNESS OF BREATH ipratropium 2022-0 Yes [id number] USE 3 ML Univers -albuteroL 3-03 IN ity of 0.5 mg-3 00:00: NEBULIZER [place] mg(2.5 mg 00 EVERY 4 Medical base)/3 mL HOURS Branc h nebulizer NEEDED FOR solution WHEEZING OR SHORTNESS OF BREATH ipratropium 2022-0 Yes [id number] USE 3 ML Univers -albuteroL 3-03 IN ity of 0.5 mg-3 00:00: NEBULIZER [place] mg(2.5 mg 00 EVERY 4 Medical base)/3 mL HOURS Branc h nebulizer NEEDED FOR solution WHEEZING OR SHORTNESS OF BREATH ipratropium 2022-0 2022- No [id number] USE 3 ML Univers -albuteroL 3-03 05-16 IN ity of 0.5 mg-3 00:00: 00:00 NEBULIZER [place] mg(2.5 mg 00 :00 EVERY 4 Medical base)/3 mL HOURS Branc h nebulizer NEEDED FOR solution WHEEZING OR SHORTNESS OF BREATH ipratropium 2022-0 2022- No 3mL 3 mL, Univ ers -albuteroL 05-29 Inhalation it y of (DUONEB) 11:00: 10:20 , ONCE, 1 [place] 0.5 mg-3 00 :00 dose, On Medical mg(2.5 mg Mon [place] base)/3 mL 05/29/22 at nebulizer 0500, solution 3 Routine mL ipratropium 2022-0 2022- No 3mL 3 mL, Univ ers -albuteroL 05-29 Inhalation it y of (DUONEB) 10:00: 09:24 , ONCE, 1 [place] 0.5 mg-3 00 :00 dose, On Medical mg(2.5 mg Mon [place] base)/3 mL 05/29/22 at nebulizer 0400, solution 3 Routine mL magnesium 2022- No 2g 2 g, IV Univ ers sulfate in 05-29 Piggyback, it y of water 2 10:00: 10:27 Administer [place] gram/50 mL 00 :00 over 60 Medica l (4 %) Minutes, Branch infusion 2 ONCE, 1 g dose, On 05/29/22 at 0400, Routine methylPREDN 2022- No 125mg 125 mg, U nivers ISolone 05-29 Intravenou ity o f sodium 09:30: 09:27 s, ONCE, 1 [place] succ[place] 00 :00 dose, On Medica l (SOLU-MEDRO Mon Branch L) 05/29/22 at injection 0330, NAEEM 125 mg predniSONE 2022-0 Yes [id number] 50mg Take 1 Univers 50 mg 1-30 tablet by ity of tablet 00:00: mouth in [place] [address] the Medical morning. Branch predniSONE 2022-0 Yes [id number] 50mg Take 1 Univers 50 mg 1-30 tablet by ity of tablet 00:00: mouth in [place] [address] the Medical morning. Branch predniSONE 2022-0 Yes [id number] 50mg Take 1 Univers 50 mg 1-30 tablet by ity of tablet 00:00: mouth in [place] 00 the Medical morning. Branch predniSONE 3-0 Yes [id number] 50mg Take 1 Univers 50 mg 1-30 tablet by ity of tablet 00:00: mouth in [place] 00 the Medical morning. Branch predniSONE 3-0 Yes [id number] 50mg Take 1 Univers 50 mg 1-30 tablet by ity of tablet 00:00: mouth in [place] 00 the Medical morning. Branch predniSONE 3-0 Yes [id number] 50mg Take 1 Univers 50 mg 1-30 tablet by ity of tablet 00:00: mouth in [place] 00 the Medical morning. Branch predniSONE 2022-0 Yes [id number] 50mg Take 1 Univers 50 mg 1-30 tablet by ity of tablet 00:00: mouth in [place] 00 the Medical morning. Branch predniSONE 2022-0 Yes [id number] 50mg Take 1 Univers 50 mg 1-30 tablet by ity of tablet 00:00: mouth in [place] 00 the Medical morning. Branch predniSONE 2022-0 Yes [id number] 50mg Take 1 Univers 50 mg 1-30 tablet by ity of tablet 00:00: mouth in [place] 00 the Medical morning. Branch predniSONE 2022-0 Yes [id number] 50mg Take 1 Univers 50 mg 1-30 tablet by ity of tablet 00:00: mouth in [place] 00 the Medical morning. Branch predniSONE 2022-0 2022- No [id number] 50mg Take 1 Univers 50 mg 1-30 06-18 tablet by ity of tablet 00:00: 00:00 mouth in [place] 00 :00 the Medical morning. Branch Fluticasone 2022-0 Yes [id number] 1{puff} Inhale 1 Univers -Salmeterol 1-24 Puff every it y of (ADVAIR 00:00: 12 [place] DISKUS) 00 (twelve) Medical 100-50 hours. Branch mcg/dose inhalation disk ipratropium 2022-0 Yes [id number] USE 3 ML Univers -albuteroL 1-24 IN ity of 0.5 mg-3 00:00: NEBULIZER [place] mg(2.5 mg 00 EVERY 4 Medical base)/3 mL HOURS Branc h nebulizer NEEDED FOR solution WHEEZING OR SHORTNESS OF BREATH Fluticasone 2022-0 Yes [id number] 1{puff} Inhale 1 Univers -Salmeterol 1-24 Puff every it y of (ADVAIR 00:00: 12 [place] DISKUS) 00 (twelve) Medical 100-50 hours. Branch mcg/dose inhalation disk ipratropium 2023-0 Yes [id number] USE 3 ML Univers -albuteroL 1-24 IN ity of 0.5 mg-3 00:00: NEBULIZER [place] mg(2.5 mg 00 EVERY 4 Medical base)/3 mL HOURS Branc h nebulizer NEEDED FOR solution WHEEZING OR SHORTNESS OF BREATH Fluticasone 2023-0 Yes [id number] 1{puff} Inhale 1 Univers -Salmeterol 1-24 Puff every it y of (ADVAIR 00:00: 12 [place] DISKUS) 00 (twelve) Medical 100-50 hours. Branch mcg/dose inhalation disk ipratropium 2023-0 Yes [id number] USE 3 ML Univers -albuteroL 1-24 IN ity of 0.5 mg-3 00:00: NEBULIZER [place] mg(2.5 mg 00 EVERY 4 Medical base)/3 mL HOURS Branc h nebulizer NEEDED FOR solution WHEEZING OR SHORTNESS OF BREATH Fluticasone 2023-0 Yes [id number] 1{puff} Inhale 1 Univers -Salmeterol 1-24 Puff every it y of (ADVAIR 00:00: 12 [place] DISKUS) 00 (twelve) Medical 100-50 hours. Branch mcg/dose inhalation disk ipratropium 2023-0 Yes [id number] USE 3 ML Univers -albuteroL 1-24 IN ity of 0.5 mg-3 00:00: NEBULIZER [place] mg(2.5 mg 00 EVERY 4 Medical base)/3 mL HOURS Branc h nebulizer NEEDED FOR solution WHEEZING OR SHORTNESS OF BREATH Fluticasone 2023-0 Yes [id number] 1{puff} Inhale 1 Univers -Salmeterol 1-24 Puff every it y of (ADVAIR 00:00: 12 [place] DISKUS) 00 (twelve) Medical 100-50 hours. Branch mcg/dose inhalation disk Fluticasone 2023-0 Yes [id number] 1{puff} Inhale 1 Univers -Salmeterol 1-24 Puff every it y of (ADVAIR 00:00: 12 [place] DISKUS) 00 (twelve) Medical 100-50 hours. Branch mcg/dose inhalation disk Fluticasone 2023-0 Yes [id number] 1{puff} Inhale 1 Univers -Salmeterol 1-24 Puff every it y of (ADVAIR 00:00: 12 [place] DISKUS) 00 (twelve) Medical 100-50 hours. Branch mcg/dose inhalation disk Fluticasone 2023-0 Yes [id number] 1{puff} Inhale 1 Univers -Salmeterol 1-24 Puff every it y of (ADVAIR 00:00: 12 [place] DISKUS) 00 (twelve) Medical 100-50 hours. Branch mcg/dose inhalation disk Fluticasone 2023-0 Yes [id number] 1{puff} Inhale 1 Univers -Salmeterol 1-24 Puff every it y of (ADVAIR 00:00: 12 [place] DISKUS) 00 (twelve) Medical 100-50 hours. Branch mcg/dose inhalation disk Fluticasone 2023-0 Yes [id number] 1{puff} Inhale 1 Univers -Salmeterol 1-24 Puff every it y of (ADVAIR 00:00: 12 [place] DISKUS) 00 (twelve) Medical 100-50 hours. Branch mcg/dose inhalation disk Fluticasone 2023-0 Yes [id number] 1{puff} Inhale 1 Univers -Salmeterol 1-24 Puff every it y of (ADVAIR 00:00: 12 [place] DISKUS) 00 (twelve) Medical 100-50 hours. Branch mcg/dose inhalation disk Fluticasone 2023-0 Yes [id number] 1{puff} Inhale 1 Univers -Salmeterol 1-24 Puff every it y of (ADVAIR 00:00: 12 [place] DISKUS) 00 (twelve) Medical 100-50 hours. Branch mcg/dose inhalation disk Fluticasone 2023-0 Yes [id number] 1{puff} Inhale 1 Univers -Salmeterol 1-24 Puff every it y of (ADVAIR 00:00: 12 [place] DISKUS) 00 (twelve) Medical 100-50 hours. Branch mcg/dose inhalation disk Fluticasone 2023-0 Yes [id number] 1{puff} Inhale 1 Univers -Salmeterol 1-24 Puff every it y of (ADVAIR 00:00: 12 [place] DISKUS) 00 (twelve) Medical 100-50 hours. Branch mcg/dose inhalation disk Fluticasone 2023-0 Yes [id number] 1{puff} Inhale 1 Univers -Salmeterol 1-24 Puff every it y of (ADVAIR 00:00: 12 [place] DISKUS) 00 (twelve) Medical 100-50 hours. Branch mcg/dose inhalation disk Fluticasone 2023-0 Yes [id number] 1{puff} Inhale 1 Univers -Salmeterol 1-24 Puff every it y of (ADVAIR 00:00: 12 [place] DISKUS) 00 (twelve) Medical 100-50 hours. Branch mcg/dose inhalation disk Fluticasone 2023-0 Yes [id number] 1{puff} Inhale 1 Univers -Salmeterol 1-24 Puff every it y of (ADVAIR 00:00: 12 [place] DISKUS) 00 (twelve) Medical 100-50 hours. Branch mcg/dose inhalation disk Fluticasone 2023-0 Yes [id number] 1{puff} Inhale 1 Univers -Salmeterol 1-24 Puff every it y of (ADVAIR 00:00: 12 [place] DISKUS) 00 (twelve) Medical 100-50 hours. Branch mcg/dose inhalation disk ipratropium 2022-0 2022- No [id number] USE 3 ML Univers -albuteroL 1-24 03-03 IN ity of 0.5 mg-3 00:00: 00:00 NEBULIZER [place] mg(2.5 mg 00 :00 EVERY 4 Medical base)/3 mL HOURS Branc h nebulizer NEEDED FOR solution WHEEZING OR SHORTNESS OF BREATH ipratropium 2022-0 Yes [id number] USE 3 ML Univers -albuteroL 1-23 IN ity of 0.5 mg-3 00:00: NEBULIZER [place] mg(2.5 mg 00 EVERY 4 Medical base)/3 mL HOURS Branc h nebulizer NEEDED FOR solution WHEEZING OR SHORTNESS OF BREATH ipratropium 3-0 2022- No [id number] USE 3 ML Univers -albuteroL 1-23 01-24 IN ity of 0.5 mg-3 00:00: 00:00 NEBULIZER [place] mg(2.5 mg 00 :00 EVERY 4 Medical base)/3 mL HOURS Branc h nebulizer NEEDED FOR solution WHEEZING OR SHORTNESS OF BREATH ipratropium 2022- No USE 3 ML Univers -albuteroL 1-23 01-24 IN ity of 0.5 mg-3 00:00: 00:00 NEBULIZER [place] mg(2.5 mg 00 :00 EVERY 4 Medical base)/3 mL HOURS Branc h nebulizer NEEDED FOR solution WHEEZING OR SHORTNESS OF BREATH IPRATROPIUM 2021-04 Yes USE 3 ML Univers -ALBUTEROL 2-27 IN ity of 0.5 mg-3 00:00: NEBULIZER [place] mg(2.5 mg 00 EVERY 4 Medical base)/3 mL HOURS Branc h nebulizer NEEDED FOR solution WHEEZING OR SHORTNESS OF BREATH IPRATROPIUM 2021-04 Yes USE 3 ML Univers -ALBUTEROL 2-27 IN ity of 0.5 mg-3 00:00: NEBULIZER [place] mg(2.5 mg 00 EVERY 4 Medical base)/3 mL HOURS Branc h nebulizer NEEDED FOR solution WHEEZING OR SHORTNESS OF BREATH IPRATROPIUM 2021-04 Yes USE 3 ML Univers -ALBUTEROL 2-27 IN ity of 0.5 mg-3 00:00: NEBULIZER [place] mg(2.5 mg 00 EVERY 4 Medical base)/3 mL HOURS Branc h nebulizer NEEDED FOR solution WHEEZING OR SHORTNESS OF BREATH IPRATROPIUM 2021-04- No USE 3 ML Univers -ALBUTEROL 2-27 -23 IN ity of 0.5 mg-3 00:00: 00:00 NEBULIZER [place] mg(2.5 mg 00 :00 EVERY 4 Medical base)/3 mL HOURS Branc h nebulizer NEEDED FOR solution WHEEZING OR SHORTNESS OF BREATH ipratropium Yes 3mL Inhale 3 Univers -albuteroL 9-23 mL every 4 ity of 0.5 mg-3 00:00: (four) [place] mg(2.5 mg 00 hours as Medica l base)/3 mL needed for [facility] nebulizer Wheezing solution or Shortness of Breath. ipratropium 2022-0 Yes 3mL Inhale 3 Univers -albuteroL 9-23 mL every 4 ity of 0.5 mg-3 00:00: (four) [place] mg(2.5 mg 00 hours as Medica l base)/3 mL needed for Bra nch nebulizer Wheezing solution or Shortness of Breath. ipratropium 2021-0 2021- No [id number] 3mL Inhale 3 Univers -albuteroL 9-23 12-27 mL every 4 it y of 0.5 mg-3 00:00: 00:00 (four) [place] mg(2.5 mg 00 :00 hours as Medica l base)/3 mL needed for Bra nch nebulizer Wheezing solution or Shortness of Breath. ipratropium 2021-0 Yes [id number] 3mL Inhale 3 Univers -albuteroL 6-22 mL every 4 ity of 0.5 mg-3 00:00: (four) [place] mg(2.5 mg 00 hours as Medica l base)/3 mL needed for Bra nch nebulizer Wheezing solution or Shortness of Breath. ipratropium 2021-0 2021- No [id number] 3mL Inhale 3 Univers -albuteroL 6-22 09-23 mL every 4 it y of 0.5 mg-3 00:00: 00:00 (four) [place] mg(2.5 mg 00 :00 hours as Medica l base)/3 mL needed for Bra nch nebulizer Wheezing solution or Shortness of Breath. fluticasone 2-0 Yes [id number] 1{puff} Inhale 1 Univers propion-david 4-04 Puff every it y of meteroL 00:00: 12 [place] (ADVAIR 00 (twelve) Medical DISKUS) hours. Branch 250-50 mcg/dose inhalation disk fluticasone 2-0 Yes [id number] 1{puff} Inhale 1 Univers propion-david 4-04 Puff every it y of meteroL 00:00: 12 [place] (ADVAIR 00 (twelve) Medical DISKUS) hours. Branch 250-50 mcg/dose inhalation disk fluticasone 2-0 Yes [id number] 1{puff} Inhale 1 Univers propion-david 4-04 Puff every it y of meteroL 00:00: 12 [place] (ADVAIR (twelve) Medical DISKUS) hours. Branch 250-50 mcg/dose inhalation disk fluticasone 2022-0 Yes [id number] 1{puff} Inhale 1 Univers propion-david 4-04 Puff every it y of meteroL 00:00: 12 [place] (ADVAIR (twelve) Medical DISKUS) hours. Branch 250-50 mcg/dose inhalation disk fluticasone 2022-0 Yes [id number] 1{puff} Inhale 1 Univers propion-david 4-04 Puff every it y of meteroL 00:00: 12 [place] (ADVAIR (twelve) Medical DISKUS) hours. Branch 250-50 mcg/dose inhalation disk fluticasone 2022-0 Yes [id number] 1{puff} Inhale 1 Univers propion-david 4-04 Puff every it y of meteroL 00:00: 12 [place] (ADVAIR (twelve) Medical DISKUS) hours. Branch 250-50 mcg/dose inhalation disk fluticasone 2022-0 Yes [id number] 1{puff} Inhale 1 Univers propion-david 4-04 Puff every it y of meteroL 00:00: 12 [place] (ADVAIR (twelve) Medical DISKUS) hours. Branch 250-50 mcg/dose inhalation disk fluticasone 2022-0 Yes [id number] 1{puff} Inhale 1 [facility] 4-04 Puff every it y of meteroL 00:00: 12 [place] (ADVAIR 00 (twelve) Medical DISKUS) hours. Branch 250-50 mcg/dose inhalation disk fluticasone 2022-0 Yes [id number] 1{puff} Inhale 1 [facility] 4-04 Puff every it y of meteroL 00:00: 12 [place] (ADVAIR (twelve) Medical DISKUS) hours. Branch 250-50 mcg/dose inhalation disk fluticasone 2022-0 Yes [id number] 1{puff} Inhale 1 [facility] 4-04 Puff every it y of meteroL 00:00: 12 [place] (ADVAIR (twelve) Medical DISKUS) hours. Branch 250-50 mcg/dose inhalation disk fluticasone 2022-0 Yes [id number] 1{puff} Inhale 1 [facility] 4-04 Puff every it y of meteroL 00:00: 12 [place] (ADVAIR 00 (twelve) Medical DISKUS) hours. Branch 250-50 mcg/dose inhalation disk fluticasone 2021-3- No [id number] 1{puff} Inhale 1 [facility] propion-[facility]id 4-04 01-24 Puff every i ty of meteroL 00:00: 00:00 12 [place] (ADVAIR 00 :00 (twelve) Medical DISKUS) hours. Branch 250-50 mcg/dose inhalation disk fluticasone 2021-0 2022- No [id number] 1{puff} Inhale 1 [facility] propion-david 4-04 01-24 Puff every i ty of meteroL 00:00: 00:00 12 [place] (ADVAIR 00 :00 (twelve) Medical DISKUS) hours. Branch 250-50 mcg/dose inhalation disk pregabalin 2021- No [id number] 50mg Take 2 [facility] 25 mg 3-30 -30 [id number] capsules ity of capsule 00:00: 04:59 by mouth 3 Humberto as 00 :00 (three) Medical times Branch daily for 30 days. pregabalin 2021-2021- No [id number] 50mg Take 2 Univers 25 mg 3-30 -30 9107 capsules ity of capsule 00:00: 04:59 by mouth 3 [place] as 00 :00 (three) Medical times Branch daily for 30 days. oxyCODONE-a 2- No [id number] 1{tbl} Take 1 U nivers cetaminophe 3-30 -07 tablet by it y of n 5-325 mg 00:00: 04:59 mouth [place] per tablet 00 :00 every 4 Medica l (four) Branch hours as needed for Pain (scale 4-6) or Pain (scale 7-10) for up to 7 days. Indication s: acute pain ipratropium 2021-0 Yes [id number] 3mL Inhale 3 Univers -albuteroL 3-09 mL every 4 ity of 0.5 mg-3 00:00: (four) [place] mg(2.5 mg 00 hours as Medica l base)/3 mL needed for Bra [facility] nebulizer Wheezing solution or Shortness of Breath. ipratropium 2021-0 Yes [id number] 3mL Inhale 3 Univers -albuteroL 3-09 mL every 4 ity of 0.5 mg-3 00:00: (four) [place] mg(2.5 mg 00 hours as Medica l base)/3 mL needed for Bra nch nebulizer Wheezing solution or Shortness of Breath. ipratropium Yes [id number] 3mL Inhale 3 Univers -albuteroL 3-09 mL every 4 ity of 0.5 mg-3 00:00: (four) [place] mg(2.5 mg 00 hours as Medica l base)/3 mL needed for Bra nch nebulizer Wheezing solution or Shortness of Breath. ipratropium Yes [id number] 3mL Inhale 3 Univers -albuteroL 3-09 mL every 4 ity of 0.5 mg-3 00:00: (four) [place] mg(2.5 mg 00 hours as Medica l base)/3 mL needed for Bra nch nebulizer Wheezing solution or Shortness of Breath. ipratropium 2021- No [id number] 3mL Inhale 3 Univers -albuteroL 3-09 06-22 mL every 4 it y of 0.5 mg-3 00:00: 00:00 (four) [place] mg(2.5 mg 00 :00 hours as Medica l base)/3 mL needed for Bra nch nebulizer Wheezing solution or Shortness of Breath. albuterol Yes [id number] 2{puff} Inhale 2 Univers 90 6-06 Puffs ity of mcg/actuati 00:00: every 4 Humberto as on inhaler 00 (four) Medical hours as Branch needed for Wheezing or Shortness of Breath. albuterol Yes [id number] 2{puff} Inhale 2 Univers 90 6-06 Puffs ity of mcg/actuati 00:00: every 4 [place] as on inhaler 00 (four) Medical hours as Branch needed for Wheezing or Shortness of Breath. albuterol Yes [id number] 2{puff} Inhale 2 Univers 90 6-06 Puffs ity of mcg/actuati 00:00: every 4 [place] as on inhaler 00 (four) Medical hours as Branch needed for Wheezing or Shortness of Breath. albuterol Yes [id number] 2{puff} Inhale 2 Univers 90 6-06 Puffs ity of mcg/actuati 00:00: every 4 [place] as on inhaler 00 (four) Medical hours as Branch needed for Wheezing or Shortness of Breath. albuterol Yes [id number] 2{puff} Inhale 2 Univers 90 6-06 Puffs ity of mcg/actuati 00:00: every 4 [place] as on inhaler 00 (four) Medical hours as Branch needed for Wheezing or Shortness of Breath. albuterol Yes [id number] 2{puff} Inhale 2 Univers 90 6-06 Puffs ity of mcg/actuati 00:00: every 4 [place] as on inhaler 00 (four) Medical hours as Branch needed for Wheezing or Shortness of Breath. albuterol Yes [id number] 2{puff} Inhale 2 Univers 90 6-06 Puffs ity of mcg/actuati 00:00: every 4 [place] as on inhaler 00 (four) Medical hours as Branch needed for Wheezing or Shortness of Breath. albuterol Yes [id number] 2{puff} Inhale 2 Univers 90 6-06 Puffs ity of mcg/actuati 00:00: every 4 [place] as on inhaler 00 (four) Medical hours as Branch needed for Wheezing or Shortness of Breath. albuterol Yes [id number] 2{puff} Inhale 2 Univers 90 6-06 Puffs ity of mcg/actuati 00:00: every 4 [place] as on inhaler 00 (four) Medical hours as Branch needed for Wheezing or Shortness of Breath. albuterol Yes [id number] 2{puff} Inhale 2 Univers 90 6-06 Puffs ity of mcg/actuati 00:00: every 4 [place] as on inhaler 00 (four) Medical hours as Branch needed for Wheezing or Shortness of Breath. albuterol Yes [id number] 2{puff} Inhale 2 Univers 90 6-06 Puffs ity of mcg/actuati 00:00: every 4 [place] as on inhaler 00 (four) Medical hours as Branch needed for Wheezing or Shortness of Breath. albuterol Yes [id number] 2{puff} Inhale 2 Univers 90 6-06 Puffs ity of mcg/actuati 00:00: every 4 [place] as on inhaler 00 (four) Medical hours as Branch needed for Wheezing or Shortness of Breath. albuterol Yes [id number] 2{puff} Inhale 2 Univers 90 6-06 Puffs ity of mcg/actuati 00:00: every 4 [place] as on inhaler 00 (four) Medical hours as Branch needed for Wheezing or Shortness of Breath. albuterol Yes [id number] 2{puff} Inhale 2 Univers 90 6-06 Puffs ity of mcg/actuati 00:00: every 4 [place] as on inhaler 00 (four) Medical hours as Branch needed for Wheezing or Shortness of Breath. albuterol Yes [id number] 2{puff} Inhale 2 Univers 90 6-06 Puffs ity of mcg/actuati 00:00: every 4 [place] as on inhaler 00 (four) Medical hours as Branch needed for Wheezing or Shortness of Breath. albuterol Yes [id number] 2{puff} Inhale 2 Univers 90 6-06 Puffs ity of mcg/actuati 00:00: every 4 [place] as on inhaler 00 (four) Medical hours as Branch needed for Wheezing or Shortness of Breath. albuterol Yes [id number] 2{puff} Inhale 2 Univers 90 6-06 Puffs ity of mcg/actuati 00:00: every 4 [place] as on inhaler 00 (four) Medical hours as Branch needed for Wheezing or Shortness of Breath. albuterol Yes [id number] 2{puff} Inhale 2 Univers 90 6-06 Puffs ity of mcg/actuati 00:00: every 4 [place] as on inhaler 00 (four) Medical hours as Branch needed for Wheezing or Shortness of Breath. albuterol Yes [id number] 2{puff} Inhale 2 Univers 90 6-06 Puffs ity of mcg/actuati 00:00: every 4 [place] as on inhaler 00 (four) Medical hours as Branch needed for Wheezing or Shortness of Breath. albuterol Yes [id number] 2{puff} Inhale 2 Univers 90 6-06 Puffs ity of mcg/actuati 00:00: every 4 [place] as on inhaler 00 (four) Medical hours as Branch needed for Wheezing or Shortness of Breath. albuterol 2022- No [id number] 2{puff} Inhale 2 Univers 90 10-03 05-22 Puffs ity of mcg/actuati 00:00: 00:00 every 4 [place] inhaler 00 :00 (four) Medical hours as Branch needed for Wheezing or Shortness of Breath. Vital Signs Vital Name Observation Time Observation Value Comments Source Systolic blood 2022-10-24 16:03:00 97 mm[Hg] Univer sity of [facility] Diastolic blood 2022-10-24 16:03:00 61 mm[Hg] Unive rsity of [facility] Heart rate 2022-10-24 16:03:00 101 /min Universi ty [facility] Body height 2022-10-24 16:03:00 182.9 cm Universi ty [facility] Body weight 2022-10-24 16:03:00 66.452 kg Universi ty [facility] BMI 2022-10-24 16:03:00 19.87 kg/m2 Universi ty [facility] Oxygen saturation in 2022-10-24 16:03:00 94 /min University of Arterial blood by [facility] Pulse oximetry Branch Respiratory rate 2022-10-23 18:58:00 16 /min Univ ersity of [facility] Oxygen saturation in 2022-10-23 18:58:00 93 /min University Arterial blood by [facility] Pulse oximetry Branch Systolic blood 2022-10-23 16:34:00 107 mm[Hg] Univer sity of [facility] Diastolic blood 2022-10-23 16:34:00 67 mm[Hg] Unive rsity of [facility] Heart rate 2022-10-23 16:34:00 80 /min Universi ty [facility] Body temperature 2022-10-23 16:34:00 36.33 Thi Univ ersity of [facility] Body weight 2022-10-23 09:04:00 65.499 kg Universi ty [facility] BMI 2022-10-23 09:04:00 19.58 kg/m2 Universi ty [facility] Body height 2022-10-22 19:16:00 182.9 cm Universi ty of [place] [facility] Systolic blood 2022-10-17 19:15:00 111 mm[Hg] Univer sity of pressure [facility] Diastolic blood 2022-10-17 19:15:00 70 mm[Hg] Unive rsity of pressure [place] [facility] Heart rate 2022-10-17 19:15:00 89 /min Universi ty [facility] Body temperature 2022-10-17 19:15:00 36.56 Thi Univ ersity of [facility] Respiratory rate 2022-10-17 19:15:00 18 /min Univ ersity of [place] [facility] Oxygen saturation in 2022-10-17 19:15:00 90 /min University of Arterial blood by [facility] [employer] Pulse oximetry Branch Body weight 2022-10-17 08:34:00 65 kg Universi ty [facility] [place] [facility] BMI 2022-10-17 08:34:00 19.43 kg/m2 Universi ty [facility] Body height 2022-10-15 14:06:00 182.9 cm Universi ty of [place] [facility] Systolic blood 2022-10-02 16:00:00 92 mm[Hg] Univer sity of pressure [place] [facility] Diastolic blood 2022-10-02 16:00:00 62 mm[Hg] Unive rsity of [facility] Heart rate 2022-10-02 16:00:00 80 /min Universi ty of [place] [facility] Respiratory rate 2022-10-02 16:00:00 18 /min Univ ersity of [place] [facility] Oxygen saturation in 2022-10-02 16:00:00 92 /min University of Arterial blood by [place] [employer] Pulse oximetry Branch Body temperature 2022-10-02 12:53:00 36.61 Thi Univ ersity of [place] [facility] Body weight 2022-10-02 12:53:00 64.864 kg Universi ty [facility] [place] [facility] BMI 2022-10-02 12:53:00 19.39 kg/m2 Universi ty of [place] [facility] Respiratory rate 2022-09-18 13:11:00 18 /min Univ ersity of [place] [facility] Oxygen saturation in 2022-09-18 13:11:00 93 /min University of Arterial blood by [place] [employer] Pulse oximetry Branch Systolic blood 2022-09-18 12:24:00 107 mm[Hg] Univer sity of pressure [place] [facility] Diastolic blood 2022-09-18 12:24:00 69 mm[Hg] Unive rsity of [facility] [place] Heart rate 2022-09-18 12:24:00 84 /min Universi ty [facility] [place] Body temperature 2022-09-18 12:24:00 35.94 Thi Univ ersity of [facility] Body weight 2022-09-18 08:34:00 65 kg Universi ty [facility] [place] [facility] BMI 2022-09-18 08:34:00 19.43 kg/m2 Universi ty of [place] [facility] [place] Body height 2022-09-17 10:09:00 182.9 cm Universi ty [facility] [place] [facility] Systolic blood 2022-08-21 00:00:00 111 mm[Hg] Univer sity of pressure [place] [facility] Diastolic blood 2022-08-21 00:00:00 70 mm[Hg] Unive rsity of [facility] Heart rate 2022-08-21 00:00:00 90 /min Universi ty of [facility] [place] Oxygen saturation in 2022-08-21 00:00:00 97 /min [facility] blood by [facility] Pulse oximetry Branch Respiratory rate 2022-08-20 23:30:00 18 /min Univ ersity of [facility] Body temperature 2022-08-20 22:33:00 36.61 Thi Univ ersity of [facility] Body height 2022-08-20 22:33:00 182.9 cm Universi ty [facility] [place] Body weight 2022-08-20 22:33:00 68.04 kg Universi ty [facility] [place] [facility] BMI 2022-08-20 22:33:00 20.34 kg/m2 Universi ty [facility] [place] [facility] Systolic blood 2022-05-29 11:00:00 95 mm[Hg] Univer sity of [facility] [place] Diastolic blood 2022-05-29 11:00:00 80 mm[Hg] Unive rsity of [facility] [place] Heart rate 2022-05-29 11:00:00 101 /min Universi ty [facility] [place] Respiratory rate 2022-05-29 11:00:00 17 /min Univ ersity of [facility] Oxygen saturation in 2022-05-29 11:00:00 93 /min University of Arterial blood by [facility] Pulse oximetry Branch Body temperature 2022-05-29 09:14:00 36.11 Thi Univ ersity of [place] [facility] Body height 2022-05-29 09:14:00 182.9 cm Universi ty [facility] [place] [facility] Body weight 2022-05-29 09:14:00 65.772 kg Universi ty [facility] [place] [facility] BMI 2022-05-29 09:14:00 19.67 kg/m2 Universi ty [facility] [place] [facility] Systolic blood 2022-05-23 19:08:00 107 mm[Hg] Univer sity of [facility] [place] [facility] Diastolic blood 2022-05-23 19:08:00 68 mm[Hg] Unive rsity of pressure [place] [facility] Heart rate 2022-05-23 19:08:00 100 /min Universi ty [facility] [place] [facility] Body temperature 2022-05-23 19:08:00 36.67 Thi Univ ersity of [place] [facility] Body height 2022-05-23 19:08:00 182.9 cm Universi ty [facility] [place] [facility] Body weight 2022-05-23 19:08:00 67.586 kg Universi ty [facility] [place] [facility] BMI 2022-05-23 19:08:00 20.21 kg/m2 Universi ty [facility] [place] [facility] Oxygen saturation in 2022-05-23 19:08:00 91 /min University of Arterial blood by [facility] Pulse oximetry Branch Systolic blood 2021-08-01 16:04:00 100 mm[Hg] Univer sity of [facility] [place] [facility] Diastolic blood 2021-08-01 16:04:00 64 mm[Hg] Unive rsity of pressure [place] [facility] Heart rate 2021-08-01 16:04:00 90 /min Universi ty [facility] [place] [facility] Body height 2021-08-01 16:04:00 182.9 cm Universi ty [facility] [place] [facility] Body weight 2021-08-01 16:04:00 59.603 kg Universi ty [facility] [place] [facility] BMI 2021-08-01 16:04:00 17.82 kg/m2 Universi ty [facility] [place] [facility] Oxygen saturation in 2021-08-01 16:04:00 97 /min University of Arterial blood by [facility] Pulse oximetry Branch Procedures Procedure Date / Time Performing Clinician Source Performed BASIC METABOLIC PANEL 2022-10-23 09:03:[address] [facility] (NA, K, CL, CO2, Medical Branch GLUCOSE, BUN, CREATININE, CA) CBC WITH DIFF 2022-10-23 09:03:00 [facility]W 2022-10-23 00:41:00 Cassy [facility] EKG-12 LEAD 2022-10-22 22:32:11 Matthew Monge [facility] CONSENT/REFUSAL FOR 2022-10-22 13:37:31 Doctor Unassigned, No [facility] Name [facility] BASIC METABOLIC PANEL 2022-10-17 08:37:00 Shruthi [facility] (NA, K, CL, CO2, [facility] Branch GLUCOSE, BUN, CREATININE, CA) CBC WITH DIFF 2022-10-17 08:37:00 Shruthi [facility] TROPONIN I 2022-10-15 12:24:00 Jonah Chauhan [facility] COMP. METABOLIC PANEL 2022-10-15 12:24:00 Jonah Chauhan [facility] ([id number]) [facility] CBC WITH DIFF 2022-10-15 12:24:00 Jonah Chauhan [facility] N-TERMINAL PRO-BNP 2022-10-15 12:24:00 Jonah Chauhan [facility] XR CHEST 1 VW 2022-10-15 11:52:47 Singer Nguyễn [facility] HB ECG ROUTINE & RHYTHM 2022-10-15 11:37:53 Jonah Chauhan [facility] STRIP [facility] CONSENT/REFUSAL FOR 2022-10-15 11:20:52 Doctor Unassigned, No [facility] Name [facility] URINALYSIS 2022-10-02 15:23:00 Nguyễn Goddard [facility] CT ABDOMEN PELVIS W 2022-10-02 13:39:00 Nguyễn Goddard [facility] CONTRAST Medical Branch LIPASE 2022-10-02 13:09:00 Singer [facility] TROPONIN I 2022-10-02 13:09:00 Singer [facility] COMP. METABOLIC PANEL 2022-10-02 13:09:00 [id number] Medical Branch CBC WITH DIFF 2022-10-02 13:09:00 Singer [facility] CONSENT/REFUSAL FOR 2022-10-02 12:47:09 Doctor Unassigned, No [facility]REAT[facility] Name Medical [place] BASIC METABOLIC PANEL 2022-09-18 08:37:00 [facility] (NA, K, CL, CO2, Medical Branch GLUCOSE, BUN, CREATININE, CA) CBC WITH DIFF 2022-09-18 08:37[facility] 2022-09-18 08:37:00 Tylor Jayce [facility] COVID-19 (ID NOW RAPID 2022-09-18 01:08:00 Tylor [facility] TESTING) Medical Branch SPUTUM CULTURE 2022-09-17 16:54:00 [facility] COMP. METABOLIC PANEL 2022-09-17 06:40:00 Singer [facility] ([id number]) Medical Branch XR CHEST 1 VW 2022-09-17 06:24:45 Singer [facility] HB ECG ROUTINE & RHYTHM 2022-09-17 06:04:28 [facility] TROPONIN I 2022-09-17 06:01:00 Singer [facility] CBC WITH DIFF 2022-09-17 06:01:00 Singer [facility] N-TERMINAL PRO-BNP 2022-09-17 06:01:00 Nguyễn Goddard [facility] NOTICE OF PRIVACY 2022-09-17 05:48:21 Doctor Unassigned, No Univ [facility] PRACTICES Name Medical Branch CONSENT/REFUSAL FOR 2022-09-17 05:47:33 Doctor Unassigned, No [facility] DIAGNOSIS [facility] TREATMENT Name Medical Branch EKG-12 LEAD 2022-08-21 01:33:44 Osiris Smith [facility] CT ANGIOGRAM CHEST 2022-08-20 23:19:19 Osiris Smith [facility] CT ANGIOGRAM 2022-08-20 23:19:19 Osiris Smith [facility] ABDOMEN/PELVIS Medical Branch XR CHEST 1 VW 2022-08-20 22:57:45 Osiris Smith Nancy [facility] LIPASE 2022-08-20 22:48:00 Osiris Smith Nancy [facility] TROPONIN I 2022-08-20 22:48:00 Osiris Smith Nancy [facility] COMP. METABOLIC PANEL 2022-08-20 22:48:00 Osiris Smith [facility] ([id number]) Medical Branch CBC WITH DIFF 2022-08-20 22:48:00 Osiris Smith [facility] PROTHROMBIN TIME / INR 2022-08-20 22:48:00 Osiris Smith [facility] ACTIVATED PARTIAL 2022-08-20 22:48:00 Osiris Smith Nancy [facility] 2022-08-20 22:26:57 Doctor Unassigned, No [facility] DIAGNOSIS AND TREATMENT Name Medical Branch XR CHEST 1 VW 2022-05-29 09:36:00 Willa Brody [facility] BASIC METABOLIC PANEL 2022-05-29 09:20:00 Willa Brody [facility] (NA, K, CL, CO2, Medical Branch GLUCOSE, BUN, CREATININE, CA) CBC WITH DIFF 2022-05-29 09:20:00 Willa Brody [facility] RAPID INFLUENZA A/B 2022-05-29 09:20:00 Willa Brody [facility] COVID-19 (ID NOW RAPID 2022-05-29 09:20:00 Willa Brody [facility] TESTING) Medical Branch Encounters Start End Encounter Admission Attending Care Care Encounter Source Date/Time Date/Time Type Type Clinicians Facility Department ID 2021-02-24 Emergency [facility] [id number] Univers 17:43:47 ity of [facility] 2021-02-24 Emergency [facility] [id number] Univers 14:55:54 ity of [facility] 2023-04-27 2023-04-27 [id number] Univers 16:30:00 16:30:00 BETTY riddhiy [facility] 2022-10-24 2022-10-24 [facility] [id number] Univers 11:00:00 11:32:51 BETTY shakeel [facility] 2022-10-24 2022-10-24 [facility] 1.2.840.114 [id number] Univers 11:00:00 11:32:51 Visit Betty [facility] 350.1.13.10 it y of [place] 4.2.7.2.686 [place] as PAUL?BLEA [id number] [address] MEDICAL OFFICE BUILDING 2022-10-24 2022-10-24 Transition CARLIE Doshi 1.2.840.114 [id number] Univers 00:00:00 00:00:00 of Care Jasmine YOUSSEF 350.1.13.10 it y of [place]2.[place] [id number] [facility] 403 Branch 2022-10-22 2022-10-23 Outpatient X [facility] [id number] Univers 08:38:00 14:35:00 AISHWARYA beckford [facility] 2022-10-22 2022-10-23 Emergency Matthew Monge [facility] 1.2.840.1 [id number] Univers 08:38:00 14:35:00 Aishwarya Madera 350.1.13.10 ity of [place]2.686 [place] [id number] [facility] [address] [place] 2022-10-19 2022-10-19 Hyacinth Pacheco [facility] 1.2.840.114 [id number] Univers 00:00:00 00:00:00 [facility] 350.1.13.10 it y of Kevin OWEN 4.2.7.2.686 [place] as PAUL?BLEA [id number] Mn markos GUO [address] [place] [address] MEDICAL OFFICE BUILDING 2022-10-18 2022-10-18 Transition CARLIE Doshi 1.2.840.114 [id number] Univers 00:00:00 00:00:00 of Care Jasmine METCALFY 350.1.13.10 [place] [id number] [address] 2022-10-15 2022-10-17 Inpatient X PATRICK [facility] BERNARDA [id number] Univers 06:20:00 14:31:00 FLORIAN beckford [facility] 2022-10-15 2022-10-17 [facility] Tien Jonah J [facility] 1.2.840.11 [id number] Univers 06:20:00 14:31:00 Encounter Florian Nguyen 350.1.13.10 ity [facility] 4.2.[place].2.[place] [id number] [place] [id number] [place] 2022-10-02 2022-10-02 Emergency X [facility] ERT [id number] Univers 07:55:00 12:12:00 NGUYỄN shakeel [facility] 2022-10-02 2022-10-02 Emergency [facility] [id number] Univers 07:55:00 12:12:00 Nguyễn LEXIE 350.1.13.10 i ty of [place]2.7.2.[place] [id number] [place] 6[address] [place] 2022-09-19 2022-09-19 Transition CARLIE Oswald 1.2.840.114 [id number] Univers 00:00:00 00:00:00 of Care Joel YOUSSEF 350.1.13.10 [place]y [place] [id number] [address] 2022-09-17 2022-09-18 [facility] [id number] Univers 00:49:00 11:15:00 JAYCE ity of [facility] 2022-09-17 2022-09-18 [facility] Nguyễn Goddard [facility] 1.2.840.1 [id number] Univers 00:49:00 11:15:00 Encounter Jayce StCHICHI 350.1.13.10 ity of Ibis [place] 4.2.7.2.686 [facility] [id number] [address] 2022-09-06 2022-09-06 [facility] 1.2.840.114 [id number] Univers 00:00:00 00:00:00 Simon HEALTH 350.1.13.10 it y of [facility] 4.2.7.2.686 [place] as PAUL?BLEA [id number] Mn rejimalena SHEILA[address] OFFICE [facility] 2022-08-20 2022-08-20 Emergency X Osiris SMITH [facility] ERT [id number] Univers 17:34:00 20:40:00 ity of [facility] 2022-08-20 2022-08-20 Emergency Osiris Smith [facility] 1.2.840.114 [id number] Univers 17:34:00 20:40:00 Nancy OWEN 350.1.13.10 i ty of [facility] 4.2.7.2.686 [place] [facility] [id number] [address] 2022-07-26 2022-07-26 Telephone [facility] [id number] Univers 00:00:00 00:00:00 Neo HEALTH 350.1.13.10 it y of [place] 4.2.7.2.686 [place] as PAUL?BLEA [id number] Mn dical SARI [address] [place] [address] OFFICE [facility] 2022-07-12 2022-07-12 [facility] 1.2.840.114 [id number] Univers 00:00:00 00:00:00 Simon HEALTH 350.1.13.10 it y of [place] 4.2.7.2.686 [place] as PAUL?BLEA [id number] [address] MEDICAL OFFICE [facility] 2022-06-30 2022-06-30 Nurse ANAT May 1.2.840.114 [id number] Univers 00:00:00 00:00:00 Triage Imtiaz HUSAIN 350.1.13.10 it y of [facility] 4.2.7.2.686 [place] as [id number] [facility] [address] [place] 2022-06-30 2022-06-30 [facility] 1.2.840.114 [id number] Univers 00:00:00 00:00:00 Triage Betty HEALTH 350.1.13.10 [facility] 4.2.7.2.686 [place] as PAUL?BLEA [id number] [address] MEDICAL OFFICE [facility] 2022-05-29 2022-05-29 Emergency [facility] [id number] Univers 03:06:00 05:45:00 WILLA ity of [facility] 2022-05-29 2022-05-29 Emergency [facility] [id number] Univers 03:06:00 05:45:00 Ordickson S [place] 350.1.13.10 ity of [place] 4.2.7.2.686 [place] [facility] [id number] [address] 2022-05-23 2022-05-23 Outpatient R ABDON [facility] [id number] Univers 13:00:00 13:41:20 ANNEMARIE shakeel of [facility] 2022-05-23 2022-05-23 Office [facility] 1.2.840.114 [id number] Univers 13:00:00 13:41:20 Visit Annemarie HEALTH 350.1.13.10 it y of [place] 4.2.7.2.686 [place] as PAUL?BLEA [id number] [address] OFFICE [facility] 2022-05-22 2022-05-22 Telephone Ainsley [facility] [id number] Univers 00:00:00 00:00:00 Betty HEALTH 350.1.13.10 it y of [place] 4.2.7.2.686 [place] as PAUL?BLEA [id number] Mn markos GUO [address] [place] [address] MEDICAL OFFICE [facility] 2022-04-29 2022-04-29 Refkelly [facility] 1.2.840.114 [id number] Univers 00:00:00 00:00:00 Neo HEALTH 350.1.13.10 it y of [place] 4.2.7.2.686 Humberto as PAUL?BLEA [phone] Mn markos GUO [address] [place] [address] OFFICE [facility] 2022-04-28 2022-04-28 [place] [facility] 1.2.403.351 [id number] Univers 00:00:00 00:00:00 Neo HEALTH 350.1.13.10 it y of [place] 4.2.7.2.686 Humberto as PAUL?BLEA [phone] Mn markos S[address] OFFICE [facility] 2022-04-24 2022-04-24 Refkelly [facility] 1.2.840.114 [id number] Univers 00:00:00 00:00:00 Neo HEALTH 350.1.13.10 it y of [place] 4.2.7.2.686 Humberto as PAUL?BLEA [phone] Mn markos [address] OFFICE [facility] 2022-01-23 2022-01-23 Hyacinth [facility] 1.2.840.114 [id number] Univers 00:00:00 00:00:00 Betty HEALTH 350.1.13.10 it y of [place] 4.2.7.2.686 Humberto as PAUL?BLEA [phone] Mn markos GUO [address] [place] [address] MEDICAL OFFICE [facility] 2022-01-19 2022-01-19 Hy[facility] 1.2.840.114 [id number] Univers 00:00:00 00:00:00 Betty HEALTH 350.1.13.10 it y of [place] 4.2.7.2.686 Humberto as PAUL?BLEA [id number] Mn markos [address] OFFICE [facility] 2021-10-19 2021-10-19 [facility] 1.2.840.114 [id number] Univers 00:00:00 00:00:00 Betty HEALTH 350.1.13.10 it y of [place] 4.2.7.2.686 Humberto as PAUL?BLEA [phone] [address] MEDICAL OFFICE [facility] 2021-10-19 2021-10-19 Telephone Ainsley [facility] 1.2.708.737 [id number] Univers 00:00:00 00:00:00 Betty HEALTH 350.1.13.10 it y of [place] 4.2.7.2.686 Humberto as PAUL?BLEA [phone] [address] MEDICAL OFFICE [facility] 2021-10-14 2021-10-14 Patient Areli Lorenzana CARLIE 1.2.840.114 [id number] Univers 00:00:00 00:00:00 Outreach E YOUSSEF 350.1.13.10 i [place] [phone] [address] 2021-08-08 2021-08-08 Patient Areli Lorenzana CARLIE 1.2.840.114 [id number] Univers 00:00:00 00:00:00 Outreach E YOUSSEF 350.1.13.10 [place] [phone] [address] 2021-08-01 2021-08-01 Office [facility] 1.2.840.114 [id number] Univers 11:00:00 11:59:38 Visit Betty HEALTH 350.1.13.10 it y of [place] 4.2.7.2.686 Humberto as PAUL?BLEA [phone] [address] MEDICAL OFFICE [facility] 2021-08-01 2021-08-01 [facility] [id number] Univers 11:00:00 11:59:38 BETTY beckford [facility] 2021-08-01 2021-08-01 [facility] [id number] Univers 11:00:00 11:00:00 BETTY beckford [facility] 2021-07-28 2021-07-28 Transition CARLIE Song 1.2.840.114 [id number] Univers 00:00:00 00:00:00 of Care Ashlee YOUSSEF 350.1.13.10 [place] [phone] [facility] [address] 2021-07-12 2021-07-27 Hospital Elsie Ramos [facility] 1.2.840.1 14 [id number] Univers 03:59:00 12:44:00 Encounter Jean-PaulKamlesh HEALTH 350.1.13.10 ity of [place] 4.2.7.2.686 [place] ROBERTS [phone] [facility] [address] ([facility]) 2021-07-27 2021-07-27 Transition CARLIE Song 1.2.840.114 [id number] Univers 00:00:00 00:00:00 of Care Ashlee YOUSSEF 350.1.13.10 [place] [phone] [facility] [address] 2021-07-26 2021-07-26 Surgery Ratna, [facility] 1.2.840.114 [id number] Univers 07:15:00 08:19:00 Onel C HEALTH 350.1.13.10 it [place] of [place] [phone] [facility] [address] ([facility]) 2021-07-22 2021-07-22 Surgery Fuentes Cabrera [facility] 1.2.840.114 [id number] Univers 12:00:00 13:54:00 HEALTH 350.1.13.10 [place] [phone] [facility] [address] [place] ([facility]) 2021-07-11 2021-07-12 Emergency X RUSTY SANCHEZ [facility] 10 [id number] Univers 23:33:00 00:16:00 RUSTY SANCHEZ ity of [facility] 2021-07-11 2021-07-12 Emergency X [facility] E[facility] [id number] Univers 23:33:00 00:16:00 ity of [facility] 2021-07-11 2021-07-12 Emergency TRAUMA 1.2.654.111 [id number] Univers 23:33:00 00:16:00 CENTER 350.1.13.10 [place] [phone] [address] 2021-07-11 2021-07-12 Emergency X RUSTY SANCHEZ [facility] ERT 10 [id number] Univers 23:33:00 00:16:00 RUSTY SANCHEZ [facility] 2021-06-13 2021-06-13 Office [facility] 1.2.840.114 [id number] Univers 14:15:00 14:30:[address] [facility] 350.1.13.10 it y of [place] 4.2.7.2.686 Hmuberto as PAUL?BLEA [phone] [address] MEDICAL OFFICE BUILDING 2021-06-13 2021-06-13 [facility] [id number] Univers 14:15:00 14:15:00 NEO [facility] 2021-06-07 2021-06-07 Emergency [facility] [id number] Univers 12:30:00 18:32:00 CHASITY [facility] 2021-06-07 2021-06-07 Emergency Faulconer, TRAUMA 1.2.840.114 [id number] Univers 12:30:00 18:32:00 [facility] 350.1.13.10 [place] [phone] [address] 2021-05-21 2021-05-21 Emergency X [facility] ERT [id number] Univers 05:31:00 05:54:00 NGUYỄN riddhikely [facility] 2021-05-21 2021-05-21 Emergency [facility] 1.2.447.538 [id number] Univers 05:31:00 05:54:00 Nguyễn ASKEWCHICHI 350.1.13.10 i ty of [place].2.[place] [phone] [place] [address] [place] 2021-05-21 2021-05-21 Orders Doctor COPPOLA 1.2.840.114 [id number] Univers 00:00:00 00:00:00 Only Unassigned, RODRIGUE 350.1.13.10 ity of [place] [facility] 4.2.7.2.686 Humberto as [phone] [address] 2021-04-20 2021-04-20 [facility] [id number] Univers 11:40:00 23:59:00 SHERITA ity of [facility] 2021-04-20 2021-04-20 [facility] 1.2.840.114 [id number] Univers 11:40:00 23:59:00 Encounter Sherita Lutz HEALTH 350.1.13.10 [facility] 4.2.7.2.686 Humberto as PAUL?BLEA [phone] [facility] [address] [place] MEDICAL OFFICE BUILDING 2021-04-20 2021-04-20 Office [facility] 1.2.840.114 [id number] Univers 12:45:00 13:00:00 Visit Neo HEALTH 350.1.13.10 it y of [place] 4.2.7.2.686 Humberto as PAUL?BLEA [phone] [facility] [address] [place] MEDICAL OFFICE BUILDING 2021-04-20 2021-04-20 Outpatient [facility] [id number] Univers 12:45:00 12:45:00 NEO beckford [facility] 2021-04-20 2021-04-20 Engineering Administrator Lab, Ang - Db [facility] .2.840.1 14 [id number] Univers 12:00:00 12:15:00 Visit Archana Sherita Lutz HEALTH 350.1.13.10 ity of [place] 4.2.7.2.686 Humberto as PAUL?BLEA [phone] Mn markos SOSA [address] [place] MEDICAL OFFICE BUILDING 2021-04-20 2021-04-20 Office [facility] 1.2.840.114 [id number] Univers 11:00:00 11:32:48 Visit Sherita Lutz HEALTH 350.1.13.10 i ty of [place] 4.2.7.2.686 Humberto as PAUL?BLEA [phone] [address] OFFICE [facility] 2021-04-20 2021-04-20 Outpatient R ARCHANA [facility] [id number] Univers 11:00:00 11:32:48 SHERITA ity [facility] 2021-02-28 2021-02-28 Patient Shashi [facility] 1.2.840.114 [id number] Univers 00:00:00 00:00:00 Outreach Ewa Jimenez [facility] 350.1.13.10 i ty of [place] 4.2.7.2.686 Humberto as PAUL?BLEA [phone] [address] OFFICE [facility] 2021-02-24 2021-02-24 Engineering Administrator Alissa, Neeta Lab Main [facility] 1.2.8 40.114 [id number] Univers 16:05:54 16:20:54 Visit Betty Schmitz 350.1.13.10 ity of [place].2.[place] [id number] Mn reji[address] 2021-02-24 2021-02-24 Outpatient R AINSLEY [facility] [id number] Univers 16:00:00 16:00:00 BETTY beckford [facility] 2021-02-24 2021-02-24 Outpatient R AINSLEY [facility] [id number] Univers 15:00:00 15:32:21 BETTY beckford [facility] 2021-02-24 2021-02-24 Office [facility] 1.2.840.114 [id number] Univers 14:58:18 15:32:21 Visit Betty [facility] 350.1.13.10 [facility] 4.2.7.2.686 Humberto as PAUL?BLEA [phone] [address] OFFICE [facility] 2021-02-24 2021-02-24 Outpatient R AINSLEY [facility] [id number] Univers 15:00:00 15:00:00 BETTY ity [facility] 2021-02-24 2021-02-24 Orders Doctor COPPOLA 1.2.840.114 [id number] Univers 00:00:00 00:00:00 Only Unassigned, RODRIGUE 350.1.13.10 ity of [place] [facility] 4.2.7.2.686 Humberto as [phone] [facility] [address] [place] 2021-02-21 2021-02-21 [facility] 1.2.840.114 [id number] Univers 00:00:00 00:00:00 Betty [facility] 350.1.13.10 it y of [place] 4.2.7.2.686 Humberto as Paul?Blea [phone] [address] Medical Office [facility] 2021-02-18 2021-02-18 [facility]elly [facility] 1.2.840.114 [id number] Univers 00:00:00 00:00:00 Betty Health 350.1.13.10 it y of [place] 4.2.7.2.686 H[place]to as Paul?Blea [id number] [address] Office [facility] 2021-01-20 2021-01-20 Letter ANAT Cho 1.2.840.114 [id number] Univers 00:00:00 00:00:00 (Out) Ashlee HUSAIN 350.1.13.10 it y of [facility] 4.2.7.2.686 Humberto as [phone] [facility] [address] [place] 2021-01-19 2021-01-19 Laboratory Only, Adc Test [facility] 1.2.840. 114 [id number] Univers 15:56:31 16:11:31 Only Michael Sanchez 350.1.13.10 ity of [place].2.[place] [phone] [facility] [address] [place] 2021-01-19 2021-01-19 Outpatient R DANIEL [facility] [id number] Univers 16:00:00 16:00:00 MICHAEL beckford [facility] 2021-01-18 2021-01-18 Outpatient R AINSLEY [facility] [id number] Univers 13:00:00 13:00:00 BETTY beckford [facility] 2021-01-11 2021-01-11 Office [facility] 1.2.840.114 [id number] Univers 14:57:17 15:33:27 Visit Betty Health 350.1.13.10 it y of [place] 4.2.7.2.686 Humberto as Paul?Blea [phone] [facility] [address] [place] Medical Office Building 2021-01-11 2021-01-11 Outpatient R AINSLEY, [facility] [id number] Univers 15:00:00 15:00:00 BETTY ity of [facility] 2021-01-11 2021-01-11 Orders Doctor ANAT 1.2.840.114 [id number] Univers 00:00:00 00:00:00 Only Unassigned, RODRIGUE 350.1.13.10 ity of [place] [facility] 4.2.7.2.686 Humberto as [phone] [address] 2021-01-11 2021-01-11 Orders Doctor ANAT 1.2.840.114 [id number] Univers 00:00:00 00:00:00 Only Unassigned, RODRIGUE 350.1.13.10 ity of [place] [facility]OSP[facility] 4.2.7.2.686 Humberto as [phone] [facility] [address] 2021-01-07 2021-01-07 Urgent Edwina Ferraro [facility] 1.2.840.11 4 [id number] Univers 15:07:29 16:49:47 Care Unknown, Attending Health 350.1.13.10 ity of [place] 4.2.7.2.686 Humberto as Paul?Blea [id number] [facility] [address] [place] Medical Office Building 2021-01-07 2021-01-07 Outpatient R CONCHIS, [facility] [id number] Univers 16:20:00 16:20:00 ATTENDING ity of [facility] 2020-07-11 2020-07-11 Telemedici Mandie Duff [facility] 1 .2.840.114 [id number] Univers 13:08:00 13:38:00 ne Visit Unknown, Attending HEALTH 350.1.13.1 0 ity of [place] 4.2.7.2.686 [place] [facility] [phone] [facility] Primary & [address] Specialty Care 2020-07-11 2020-07-11 Outpatient R CONCHIS [facility] [id number] Univers 13:30:00 13:30:00 ATTENDING [facility] 2020-07-11 2020-07-11 Nurse ANAT [place] 1.2.840.114 [id number] Univers 00:00:00 00:00:00 Triage Christiana HUSAIN 350.1.13.10 it y of [facility] 4.2.7.2.686 Humberto as [phone] [facility] [address] 2020-07-10 2020-07-10 Patient [facility] 1.2.840.114 [id number] Univers 00:00:00 00:00:00 Outreach Gonzalo NICHOLS 350.1.13.10 i ty of [facility] 4.2.7.2.686 [place] JOEL [phone] [facility] [address] [place] 2019-08-10 2019-08-10 [facility] [id number] Univers 15:00:00 15:00:00 EJ [facility] 2019-08-08 2019-08-09 Emergency [facility] 1.2.670.655 [id number] Univers 21:24:00 00:05:00 Elsie Owen 350.1.13.10 i ty of [place] 4.2.7.2.686 [facility] [id number] [facility] [address] [place] 2019-08-08 2019-08-09 Emergency X [facility] ERT [id number] Univers 21:24:00 00:05:00 ELSIE [facility] 2019-07-21 2019-07-21 Ivanna [facility] 1.2.840.114 [id number] Univers 00:00:00 00:00:00 (Out) Sherita Garnica 350.1.13.10 i ty of [place] 4.2.7.2.686 Humberto as Aye [phone] Mn dical nal [address] Office Building One 2019-07-16 2019-07-16 Emergency [facility] 1.2.283.220 [id number] Univers 09:50:52 13:49:00 Matthew Owen 350.1.13.10 i ty of [place] 4.2.7.2.686 [facility] [id number] [facility] [address] [place] 2019-07-16 2019-07-16 Emergency X MARIPOSA [facility] ERT [id number] Univers 09:50:52 13:49:00 MATTHEW [facility] 2019-07-16 2019-07-16 Out[facility] [id number] [facility] 08:40:00 13:05:28 SHERITA [facility] 2019-07-16 2019-07-16 Office Pob1, Acute Care Clinic [facility] 1. 2.840.114 [id number] Univers 08:39:54 08:59:54 Visit Sherita Magaña [facility] 350.1.13.10 ity [facility] 4.2.7.2.686 [facility] [phone] Mn dical nal [address] [place] Office Building One 2019-07-16 2019-07-16 Outpatient R [facility] [id number] Univers 08:40:00 08:40:00 [facility] Results Test Description Test Time Test Comments Results Result Comments Source TROPONIN I 2022-10-15 13:09:07 Test Item Value Reference Range Interpretation Comme nts TROPONIN I (test code = 5744489537) 0.001 ng/mL <=0.034 ROSEANN (test code = ROSEANN) Reference (Normal) Range (defined by the 99th percentile reference limit): <= 0.034 ng/mL Note: Cardiac troponin begins to rise 3-4 hours after the onset of ischemia. Repeat in 4-6 hours if the sample was drawn within 3-4 hours of the onset of the symptom and found normal. Diagnosis of myocardial injury is made with acute changes in cTn concentrations with at least one serial sample above the 99th percentile upper reference limit (URL), taken together with the patient's clinical presentation. Biotin has been reported to cause a negative bias, interpret results relative to patient's use of biotin. Lab Interpretation (test code = Normal 88450-5) [id number] 13:05:46 Test Item Value Reference Range Interpretation Comments NT-proBNP (test code = 64 pg/mL <=125 7824222962) ROSEANN (test code = ROSEANN) Biotin has been reported to cause a negative bias, interpret results relative to patient's use of biotin. Lab Interpretation (test Normal code = 59426-5) [facility]. METABOLIC PANEL (58555)2022-10-15 12:58:28 Test Item Value Reference Range Interpretation Comments NA (test code = 140 mmol/L 135-145 9342223664) K (test code = 4.4 mmol/L 3.5-5.0 9412300379) CL (test code = 103 mmol/L 98-108 3250264896) CO2 TOTAL (test code = 29 mmol/L 23-31 0867521934) AGAP (test code = 8 2-16 7506030493) BUN (test code = 6 mg/dL 7-23 L 6916184779) GLUCOSE (test code = 114 mg/dL 70-110 H 0432340964) CREATININE (test code = 0.85 mg/dL 0.60-1.25 7143447363) TOTAL BILI (test code = 0.6 mg/dL 0.1-1.0 9451008562) CALCIUM (test code = 9.2 mg/dL 8.6-10.6 7654821739) T PROTEIN (test code = 6.9 g/dL 6.3-8.2 1912661632) ALBUMIN (test code = 4.1 g/dL 3.5-5.0 8562693279) ALK PHOS (test code = 101 U/L 34-122 0872278932) ALTv (test code = 13 U/L 5-50 2-6) AST(SGOT) (test code = 18 U/L 13-40 8897785139) eGFR (test code = 91.6 mL/min/1.73m2 1591269180) ROSEANN (test code = ROSEANN) Association of Glomerular Filtration Rate (GFR) and Staging of Kidney Disease* + --+ --+ ------+| GFR (mL/min/1.73 m2) ?| With Kidney Damage ?| ?Without Kidney Damage+ --------+ --------+ +| ?>90 ?| ?Stage one ?| ? Normal ?+ ---+ ---+ -------+| ?60-89 ?| ?Stage two ?| ? Decreased GFR ? + --+ --+ ------+| ?30-59 ?| ?Stage three ?| ? Stage three ? + --+ --+ ------+| ?15-29 ?| ?Stage four ? | ? Stage four ?+ ---+ ---+ -------+| ?<15 (or dialysis) ? ?| ?Stage five ? | ? Stage five ?+ ---+ ---+ -------+ *Each stage assumes the associated GFR level has been in effect for at least three months. ?Stages 1 to 5, with or without kidney disease, indicate chronic kidney disease. Notes: Determination of stages one and two (with eGFR >59mL/min/1.73 m2) requires estimation of kidney damage for at least three months as defined by structural or functional abnormalities of the kidney, manifested by either:Pathological abnormalities or Markers of kidney damage (including abnormalities in the composition of the blood or urine or abnormalities in imaging tests). Lab Interpretation Abnormal (test code = 77089-4) [facility] WITH [id number] 12:41:49 Test Item Value Reference Range Interpretation Comments WBC (test code = 6.93 See_Comment [Automated message] 9590-2) The system [employer] generated this result transmitted ref erence range: 4.20 - 1 0.70 10*3/?L. The re ference range was not u sed to interpret this result as normal/abnor mal. RBC (test code = 5.28 See_Comment [Automated message] 573-8) The system [employer] generated this result transmitted ref erence range: 4.26 - 5 .52 10*6/?L. The re ference range was not u sed to interpret this result as normal/abnor mal. HGB (test code = 16.0 g/dL 12.2-16.4 718-7) HCT (test code = 48.2 % 38.4-49.3 4544-3) MCV (test code = 91.3 fL 81.7-95.6 787-2) MCH (test code = 30.3 pg 26.1-32.7 785-6) MCHC (test code = 33.2 g/dL 31.2-35.0 786-4) RDW-SD (test code 47.8 fL 38.5-51.6 = 44099-6) RDW-CV (test code 14.4 % 12.1-15.4 = 788-0) PLT (test code = 310 See_Comment [Automated message] 777-3) The system whic h generated this result transmitted ref erence range: 150 - 32 8 10*3/?L. The re ference range was not u sed to interpret this result as normal/abnor mal. MPV (test code = 10.0 fL 9.8-13.0 46777-2) NRBC/100 WBC (test 0.0 See_Comment [Automat ed message] code = 0463862728) The syste m which generated this result transmitted ref erence range: 0.0 - 10 .0 /100 WBCs. The refer ence range was not u sed to interpret this result as normal/abnor mal. NRBC x10^3 (test See_Comment [Automated message] code = 8492103674) The syste m which generated this result transmitted ref erence range: 10*3/?L. The reference range was not used to interpr et this result as normal/abnormal . GRAN MAT (NEUT) % 65.8 % (test code = 770-8) IMM GRAN % (test 0.60 % code = 1913406118) LYMPH % (test code 19.0 % = 736-9) MONO % (test code 8.4 % = 5905-5) EOS % (test code = 5.2 % 713-8) BASO % (test code 1.0 % = 706-2) GRAN MAT 4.56 10*3/uL 1.99-6.95 x10^3(ANC) (test code = 7629289054) IMM GRAN x10^3 0.04 10*3/uL 0.00-0.06 (test code = 9307624269) LYMPH x10^3 (test 1.32 10*3/uL 1.09-3.23 code = 731-0) MONO x10^3 (test 0.58 10*3/uL 0.36-1.02 code = 742-7) EOS x10^3 (test 0.36 10*3/uL 0.06-0.53 code = 711-2) BARTOLOME x10^3 (test 0.07 10*3/uL 0.01-0.09 code = 704-7) [facility] 15:52:06 Test Item Value Reference Range Interpretation Comments Procalcitonin (test 0.10 ng/mL <=0.07 H code = 5758735702) ROSEANN (test code = ROSEANN) INTERPRETATION OF PROCALCITONIN RESULTS IN ADULTS >= 18 YEARS OF AGE Initiation and discontinuation of antibiotics on patients with suspected or confirmed Lower Respiratory Tract Infection in Adults >= 18 years of age. + +-------- --------+ + -----+|Procalcitonin |Interpretation ?|Antibiotic ? ? |Considerations ? |ng/mL ? | ?|recommendation | ? + +-------- --------+ + -----+| <0.1 ? | Bacterial ? ? ?| Strongly ? ? ?| ? | ?| infection very | discouraged ? | Overruling: ? | ?| unlikely ? ? ? | ? | ? Clinically unstable ? ? ? + +-------- --------+ + ? High risk for adverse ? ? | <0.25 ?| Bacterial ? ? ?| Discouraged ? | ? outcome ? | ?| infection ? ? ?| ? | ? SEE IMPORTANT NOTE ?| ?| unlikely ? ? ? | ? | ? + +-------- --------+ + -----+| >=0.25 ? ? ? | Bacterial ? ? ?| Encouraged ? ?| ? | ?| infection ? ? ?| ? | ? | ?| likely ? | ? | Consider treatment failure ?+ +------- ---------+ -+ if levels does not decrease | >0.5 ? | Bacterial ? ? ?| Strongly ? ? ?| appropriately ? | ?| infection very | encouraged ? ?| ? | ?| likely ? | ? | ? + +-------- --------+ + -----+ Discontinuation of antibiotics in high-acuity patients with suspected or confirmed sepsis in Adults >= 18 years of age. + +-------- --------+ + -----+|Procalcitonin |Interpretation ?|Antibiotic ? ? |Considerations ? |ng/mL ? | ?|recommendation | ? + +-------- --------+ + -----+| <0.25 ?| Bacterial ? ? ?| Strongly ? ? ?| ? | ?| infection very | discouraged ? | Overruling: ? | ?| unlikely ? ? ? | ? | ? Clinically unstable ? ? ? + +-------- --------+ + ? High risk for adverse ? ? | <0.5 or drop | Bacterial ? ? ?| Discouraged ? | ? outcome ? | >80% from ? ?| infection ? ? ?| ? | ? SEE IMPORTANT NOTE ?| highest PCT ?| unlikely ? ? ? | ? | ? | level ?| ?| ? | ? + +-------- --------+ + -----+| >=0.5 ?| Bacterial ? ? ?| Encouraged ? ?| ? | ?| infection ? ? ?| ? | ? | ?| likely ? | ? | Consider treatment failure ?+ +------- ---------+ -+ if levels does not decrease | >1.0 ? | Bacterial ? ? ?| Strongly ? ? ?| appropriately ? | ?| infection very | encouraged ? ?| ? | ?| likely ? | ? | ? + +-------- --------+ + -----+ Percentage of drop of Procalcitonin calculation for Discontinuation of antibiotics in high-acuity patients with suspected or confirmed sepsis in Adults >= 18 years of age. ? Procalcitonin highest{}-Procalcitonin current{}Delta Procalcitonin = x100% ? Procalcitonin current {} IMPORTANT NOTE: Procalcitonin may be elevated without bacterial infection by physiologic stress related to trauma, manley, chronic dialysis, metastatic cancer, surgery in the past seven days, malaria, some fungal infections, and some forms of vasculitis. The interpretation algorithm may not apply to patients with immunosuppression (equivalent of >10 mg of prednisone daily), HIV with CD4 cell count < 350 cells/mm3, active malignancy on systemic chemotherapy, solid organ transplant or hematopoietic stem cell transplantation, or hospital acquired pneumonia. Additionally, some clinical trials of procalcitonin have excluded patients with shock requiring vasopressor use, acute respiratory failure requiring mechanical ventilation, or those with known lung abscess/empyema. For further information please refer to:[email or web address] Lab Interpretation Abnormal (test code = 85016-3) [facility] with [id number] 10:31:18 Test Item Value Reference Range Interpretation Comments WBC (test code = 16.07 See_Comment H [Automated 3692-2) message] The system which generated this result transmit sarah reference range : 4.20 - 10.70 10*3/?L. The reference range was not used to interpret this result as normal/abnormal . RBC (test code = 4.80 See_Comment [Automated 039-8) message] The system which generated this result transmit sarah reference range : 4.26 - 5.52 10*6/?L. The reference range was not used to interpret this result as normal/abnormal . HGB (test code = 14.3 g/dL 12.2-16.4 718-7) HCT (test code = 43.2 % 38.4-49.3 4544-3) MCV (test code = 90.0 fL 81.7-95.6 787-2) MCH (test code = 29.8 pg 26.1-32.7 785-6) MCHC (test code = 33.1 g/dL 31.2-35.0 786-4) RDW-SD (test code = 43.8 fL 38.5-51.6 00682-0) RDW-CV (test code = 13.4 % 12.1-15.4 788-0) PLT (test code = 276 See_Comment [Automated 777-3) message] The system which generated this result transmit sarah reference range : 150 - 328 10*3/ ?L. The reference range was not u sed to interpret th is result as normal/abnormal . MPV (test code = 10.4 fL 9.8-13.0 53359-6) NRBC/100 WBC (test 0.0 See_Comment [Automat ed code = [id number]) message] The system which generated this result transmit sarah reference range : 0.0 - 10.0 /100 WBCs. The reference range was not used to interpret this result as normal/abnormal . NRBC x10^3 (test code See_Comment [Auto mated = 7695286873) message] The system which generated this result transmit sarah reference range : 10*3/?L. The reference range was not used to interpret this result as normal/abnormal . GRAN MAT (NEUT) % 91.0 % (test code = 770-8) IMM GRAN % (test code 0.70 % = 2913843665) LYMPH % (test code = 3.9 % 736-9) MONO % (test code = 4.2 % 5905-5) EOS % (test code = 0.0 % 713-8) BASO % (test code = 0.2 % 706-2) GRAN MAT x10^3(ANC) 14.64 10*3/uL 1.99-6.95 H (test code = 5501042495) IMM GRAN x10^3 (test 0.11 10*3/uL 0.00-0.06 H code = 1773674314) LYMPH x10^3 (test code 0.62 10*3/uL 1.09-3.23 L = 731-0) MONO x10^3 (test code 0.67 10*3/uL 0.36-1.02 = 742-7) EOS x10^3 (test code = 0.06-0.53 L 711-2) BASO x10^3 (test code 0.03 10*3/uL 0.01-0.09 = 704-7) Lab Interpretation Abnormal (test code = 05757-3) [facility] Metabolic Panel (NA, K, CL, CO2, GLUCOSE, BUN, CREATININE, CA)2022-09-18 09:42:12 Test Item Value Reference Range Interpretation Comments NA (test code = 138 mmol/L 135-145 0892152489) K (test code = 4.3 mmol/L 3.5-5.0 6053728111) CL (test code = 102 mmol/L 98-108 9824698522) CO2 TOTAL (test code = 29 mmol/L 23-31 6534616493) AGAP (test code = 7 2-16 3130201083) BUN (test code = 17 mg/dL 7-23 4528543075) GLUCOSE (test code = 129 mg/dL 70-110 H 9701695873) CREATININE (test code = 0.68 mg/dL 0.60-1.25 5669677961) CALCIUM (test code = 9.0 mg/dL 8.6-10.6 8854321870) eGFR (test code = 118.5 mL/min/1.73m2 9690765320) ROSEANN (test code = ROSEANN) Association of Glomerular Filtration Rate (GFR) and Staging of Kidney Disease* + --+ --+ ------+| GFR (mL/min/1.73 m2) ?| With Kidney Damage ?| ?Without Kidney Damage+ --------+ --------+ +| ?>90 ?| ?Stage one ?| ? Normal ?+ ---+ ---+ -------+| ?60-89 ?| ?Stage two ?| ? Decreased GFR ? + --+ --+ ------+| ?30-59 ?| ?Stage three ?| ? Stage three ? + --+ --+ ------+| ?15-29 ?| ?Stage four ? | ? Stage four ?+ ---+ ---+ -------+| ?<15 (or dialysis) ? ?| ?Stage five ? | ? Stage five ?+ ---+ ---+ -------+ *Each stage assumes the associated GFR level has been in effect for at least three months. ?Stages 1 to 5, with or without kidney disease, indicate chronic kidney disease. Notes: Determination of stages one and two (with eGFR >59mL/min/1.73 m2) requires estimation of kidney damage for at least three months as defined by structural or functional abnormalities of the kidney, manifested by either:Pathological abnormalities or Markers of kidney damage (including abnormalities in the composition of the blood or urine or abnormalities in imaging tests). Lab Interpretation Abnormal (test code = 02188-2) [facility]. METABOLIC PANEL ([id number])2022-09-17 07:05:43 Test Item Value Reference Range Interpretation Comments NA (test code = 134 mmol/L 135-145 L 1330144782) K (test code = 4.4 mmol/L 3.5-5.0 4441024075) CL (test code = 98 mmol/L 98-108 2058493914) CO2 TOTAL (test code = 26 mmol/L 23-31 9584831027) AGAP (test code = 10 2-16 8783826850) BUN (test code = 7 mg/dL 7-23 7516520251) GLUCOSE (test code = 135 mg/dL 70-110 H 8103560725) CREATININE (test code = 0.81 mg/dL 0.60-1.25 5963058785) TOTAL BILI (test code = 1.1 mg/dL 0.1-1.1 7521899291) CALCIUM (test code = 8.6 mg/dL 8.6-10.6 1048551592) T PROTEIN (test code = 6.5 g/dL 6.3-8.2 5875784123) ALBUMIN (test code = 3.9 g/dL 3.5-5.0 2721626639) ALK PHOS (test code = 101 U/L 34-122 7592662909) ALTv (test code = 12 U/L 5-50 1742-6) AST(SGOT) (test code = 16 U/L 13-40 6700742070) eGFR (test code = 96.9 mL/min/1.73m2 8362137206) ROSEANN (test code = ROSEANN) Association of Glomerular Filtration Rate (GFR) and Staging of Kidney Disease* + --+ --+ ------+| GFR (mL/min/1.73 m2) ?| With Kidney Damage ?| ?Without Kidney Damage+ --------+ --------+ +| ?>90 ?| ?Stage one ?| ? Normal ?+ ---+ ---+ -------+| ?60-89 ?| ?Stage two ?| ? Decreased GFR ? + --+ --+ ------+| ?30-59 ?| ?Stage three ?| ? Stage three ? + --+ --+ ------+| ?15-29 ?| ?Stage four ? | ? Stage four ?+ ---+ ---+ -------+| ?<15 (or dialysis) ? ?| ?Stage five ? | ? Stage five ?+ ---+ ---+ -------+ *Each stage assumes the associated GFR level has been in effect for at least three months. ?Stages 1 to 5, with or without kidney disease, indicate chronic kidney disease. Notes: Determination of stages one and two (with eGFR >59mL/min/1.73 m2) requires estimation of kidney damage for at least three months as defined by structural or functional abnormalities of the kidney, manifested by either:Pathological abnormalities or Markers of kidney damage (including abnormalities in the composition of the blood or urine or abnormalities in imaging tests). Lab Interpretation Abnormal (test code = 82350-5) [id number] Test Item Value Reference Range Interpretation Comments TROPONIN I (test code = 0.016 ng/mL <=0.034 1533512150) ROSEANN (test code = ROSEANN) Reference (Normal) Range (defined by the 99th percentile reference limit): <= 0.034 ng/mL Note: Cardiac troponin begins to rise 3-4 hours after the onset of ischemia. Repeat in 4-6 hours if the sample was drawn within 3-4 hours of the onset of the symptom and found normal. Diagnosis of myocardial injury is made with acute changes in cTn concentrations with at least one serial sample above the 99th percentile upper reference limit (URL), taken together with the patient's clinical presentation. Biotin has been reported to cause a negative bias, interpret results relative to patient's use of biotin. Lab Interpretation Normal (test code = 43993-4) [facility] [id number] 06:38:22 Test Item Value Reference Range Interpretation Comments NT-proBNP (test code = 85 pg/mL <=125 3107340457) ROSEANN (test code = ROSEANN) Biotin has been reported to cause a negative bias, interpret results relative to patient's use of biotin. Lab Interpretation (test Normal code = 79109-1) [facility] WITH [id number] 06:22:22 Test Item Value Reference Range Interpretation Comments WBC (test code = 14.22 See_Comment H [Automated 6690-2) message] The system which generated this result transmit sarah reference range : 4.20 - 10.70 10*3/?L. The reference range was not used to interpret this result as normal/abnormal . RBC (test code = 5.34 See_Comment [Automated 789-8) message] The system which generated this result transmit sarah reference range : 4.26 - 5.52 10*6/?L. The reference range was not used to interpret this result as normal/abnormal . HGB (test code = 16.0 g/dL 12.2-16.4 718-7) HCT (test code = 48.0 % 38.4-49.3 4544-3) MCV (test code = 89.9 fL 81.7-95.6 787-2) MCH (test code = 30.0 pg 26.1-32.7 785-6) MCHC (test code = 33.3 g/dL 31.2-35.0 786-4) RDW-SD (test code = 44.7 fL 38.5-51.6 86926-4) RDW-CV (test code = 13.6 % 12.1-15.4 788-0) PLT (test code = 274 See_Comment [Automated 777-3) message] The system which generated this result transmit sarah reference range : 150 - 328 10*3/ ?L. The reference range was not u sed to interpret th is result as normal/abnormal . MPV (test code = 10.2 fL 9.8-13.0 35354-1) NRBC/100 WBC (test 0.0 See_Comment [Automat ed code = 4979165373) message] The system which generated this result transmit sarah reference range : 0.0 - 10.0 /100 WBCs. The reference range was not used to interpret this result as normal/abnormal . NRBC x10^3 (test code See_Comment [Auto mated = 3978683619) message] The system which generated this result transmit sarah reference range : 10*3/?L. The reference range was not used to interpret this result as normal/abnormal . GRAN MAT (NEUT) % 84.8 % (test code = 770-8) IMM GRAN % (test code 0.80 % = 9464835721) LYMPH % (test code = 7.0 % 736-9) MONO % (test code = 6.3 % 5905-5) EOS % (test code = 0.6 % 713-8) BASO % (test code = 0.5 % 706-2) GRAN MAT x10^3(ANC) 12.06 10*3/uL 1.99-6.95 H (test code = 9529802829) IMM GRAN x10^3 (test 0.11 10*3/uL 0.00-0.06 H code = 4012934514) LYMPH x10^3 (test code 0.99 10*3/uL 1.09-3.23 L = 731-0) MONO x10^3 (test code 0.90 10*3/uL 0.36-1.02 = 742-7) EOS x10^3 (test code = 0.09 10*3/uL 0.06-0.53 711-2) BASO x10^3 (test code 0.07 10*3/uL 0.01-0.09 = 704-7) Lab Interpretation Abnormal (test code = 45111-0) [id number]13 Test Item Value Reference Range Interpretation Comments TROPONIN I (test code = 0.003 ng/mL <=0.034 3846460194) ROSEANN (test code = ROSEANN) Reference (Normal) Range (defined by the 99th percentile reference limit): <= 0.034 ng/mL Note: Cardiac troponin begins to rise 3-4 hours after the onset of ischemia. Repeat in 4-6 hours if the sample was drawn within 3-4 hours of the onset of the symptom and found normal. Diagnosis of myocardial injury is made with acute changes in cTn concentrations with at least one serial sample above the 99th percentile upper reference limit (URL), taken together with the patient's clinical presentation. Biotin has been reported to cause a negative bias, interpret results relative to patient's use of biotin. Lab Interpretation Normal (test code = 96982-7) [facility] [id number] 23:35:31 Test Item Value Reference Range Interpretation Comments APTT Patient (test 41 See_Comment H [Automat ed code = 3173-2) message] The system which generated this result transmitted reference range : 23 - 38 Seconds . The reference range was not used to interpr et this result as normal/abnormal . ROSEANN (test code = ORSEANN) The [facility] patient population mean normal value for aPTT is 30 seconds. Lab Interpretation Abnormal (test code = 19952-3) [facility]Proth[facility] / [id number] 23:33:11 Test Item Value Reference Range Interpretation Comments PROTIME PATIENT (test 12.3 See_Comment [Auto mated message] code = 5964-2) The system wh ich generated this result transmitted ref erence range: 12.0 - 1 4.7 Seconds. The re ference range was not u sed to interpret this result as normal/abnor mal. INR (test code = 6301-6) 1.0 Nor mal INR <1.1; Warfarin Therap eutic range 2.0 to 3. 0 or 2.5 to 3.5, dep ending upon the indica tions. Lab Interpretation (test Normal code = 96875-5) [facility] ([id number])2022-08-20 23:30:30 Test Item Value Reference Range Interpretation Comments NA (test code = 135 mmol/L 135-145 9211948820) K (test code = 4.3 mmol/L 3.5-5.0 6451714233) CL (test code = 99 mmol/L 98-108 3761564810) CO2 TOTAL (test code = 30 mmol/L 23-31 5501433054) AGAP (test code = 6 2-16 6779273220) BUN (test code = 5 mg/dL 7-23 L 4642488173) GLUCOSE (test code = 124 mg/dL 70-110 H 9359311633) CREATININE (test code = 0.86 mg/dL 0.60-1.25 8497110234) TOTAL BILI (test code = 0.6 mg/dL 0.1-1.3 2304713235) CALCIUM (test code = 9.1 mg/dL 8.6-10.6 9923764826) T PROTEIN (test code = 7.0 g/dL 6.3-8.2 7533164230) ALBUMIN (test code = 4.3 g/dL 3.5-5.0 8443924349) ALK PHOS (test code = 100 U/L 34-122 3631131350) ALTv (test code = 13 U/L 5-50 1742-6) AST(SGOT) (test code = 19 U/L 13-40 0611058505) eGFR (test code = 90.4 mL/min/1.73m2 1347231577) ROSEANN (test code = ROSEANN) Association of Glomerular Filtration Rate (GFR) and Staging of Kidney Disease* + --+ --+ ------+| GFR (mL/min/1.73 m2) ?| With Kidney Damage ?| ?Without Kidney Damage+ --------+ --------+ +| ?>90 ?| ?Stage one ?| ? Normal ?+ ---+ ---+ -------+| ?60-89 ?| ?Stage two ?| ? Decreased GFR ? + --+ --+ ------+| ?30-59 ?| ?Stage three ?| ? Stage three ? + --+ --+ ------+| ?15-29 ?| ?Stage four ? | ? Stage four ?+ ---+ ---+ -------+| ?<15 (or dialysis) ? ?| ?Stage five ? | ? Stage five ?+ ---+ ---+ -------+ *Each stage assumes the associated GFR level has been in effect for at least three months. ?Stages 1 to 5, with or without kidney disease, indicate chronic kidney disease. Notes: Determination of stages one and two (with eGFR >59mL/min/1.73 m2) requires estimation of kidney damage for at least three months as defined by structural or functional abnormalities of the kidney, manifested by either:Pathological abnormalities or Markers of kidney damage (including abnormalities in the composition of the blood or urine or abnormalities in imaging tests). Lab Interpretation Abnormal (test code = 19200-8) [facility]:29:30 Test Item Value Reference Range Interpretation Comments LIPASE (test code = 7714843890) 53 U/L 0-220 Lab Interpretation (test code = Normal 60521-4) [facility] WITH [id number] 23:14:52 Test Item Value Reference Range Interpretation Comments WBC (test code = 9.92 See_Comment [Automated 6690-2) message] The sy stem which generated this result transmitted reference range : 4.20 - 10.70 10*3/?L. The reference range was not used to interpret this result as normal/abnormal . RBC (test code = 5.45 See_Comment [Automated 789-8) message] The sy stem which generated this result transmitted reference range : 4.26 - 5.52 10*6/?L. The reference range was not used to interpret this result as normal/abnormal . HGB (test code = 16.3 g/dL 12.2-16.4 718-7) HCT (test code = 48.6 % 38.4-49.3 4544-3) MCV (test code = 89.2 fL 81.7-95.6 787-2) MCH (test code = 29.9 pg 26.1-32.7 785-6) MCHC (test code = 33.5 g/dL 31.2-35.0 786-4) RDW-SD (test code = 43.0 fL 38.5-51.6 33037-3) RDW-CV (test code = 13.2 % 12.1-15.4 788-0) PLT (test code = 281 See_Comment [Automated 777-3) message] The sy stem which generated this result transmitted reference range : 150 - 328 10*3/ ?L. The reference r jasmin was not used to interpret this result as normal/abnormal . MPV (test code = 9.5 fL 9.8-13.0 L 78787-8) NRBC/100 WBC (test 0.0 See_Comment [Automat ed code = 7734200986) message] The system which generated this result transmitted reference range : 0.0 - 10.0 /100 WBCs. The refer ence range was not u sed to interpret th is result as normal/abnormal . NRBC x10^3 (test code See_Comment [Auto mated = 0131399331) message] The s ystem which generated this result transmitted reference range : 10*3/?L. The reference range was not used to interpret this result as normal/abnormal . GRAN MAT (NEUT) % 80.3 % (test code = 770-8) IMM GRAN % (test code 0.60 % = 9169619918) LYMPH % (test code = 9.3 % 736-9) MONO % (test code = 5.0 % 5905-5) EOS % (test code = 3.9 % 713-8) BASO % (test code = 0.9 % 706-2) GRAN MAT x10^3(ANC) 7.96 10*3/uL 1.99-6.95 H (test code = 7405343591) IMM GRAN x10^3 (test 0.06 10*3/uL 0.00-0.06 code = 6188802161) LYMPH x10^3 (test code 0.92 10*3/uL 1.09-3.23 L = 731-0) MONO x10^3 (test code 0.50 10*3/uL 0.36-1.02 = 742-7) EOS x10^3 (test code = 0.39 10*3/uL 0.06-0.53 711-2) BASO x10^3 (test code 0.09 10*3/uL 0.01-0.09 = 704-7) Lab Interpretation Abnormal (test code = 85764-0) [facility] METABOLIC PANEL (NA, K, CL, CO2, GLUCOSE, BUN, CREATININE, CA)2022-05-29 09:45:41 Test Item Value Reference Range Interpretation Comments NA (test code = 135 mmol/L 135-145 1962611015) K (test code = 4.0 mmol/L 3.5-5.0 0403026213) CL (test code = 98 mmol/L 98-108 4078838387) CO2 TOTAL (test code 29 mmol/L 23-31 = 2858844536) AGAP (test code = 2-16 9382207560) BUN (test code = 8 mg/dL 7-23 1859873623) GLUCOSE (test code = 95 mg/dL 70-110 5987830936) CREATININE (test code 0.91 mg/dL 0.60-1.25 = 8671424774) CALCIUM (test code = 9.0 mg/dL 8.6-10.6 4702802106) eGFR (test code = mL/min/1.73m2 9596426483) ROSEANN (test code = ROSEANN) Association of Glomerular Filtration Rate (GFR) and Staging of Kidney Disease* + + +- +| GFR (mL/min/1.73 m2) ?| With Kidney Damage ?| ?Without Kidney Damage+ ------+ ----+ ------+| ?>90 ?| ?Stage one ?| ? Normal ?+ -+ + -+| ?60-89 ?| ?Stage two ?| ? Decreased GFR ? + + +- +| ?30-59 ?| ?Stage three ?| ? Stage three ? + + +- +| ?15-29 ?| ?Stage four ? | ? Stage four ?+ -+ + -+| ?<15 (or dialysis) ? ?| ?Stage five ? | ? Stage five ?+ -+ + -+ *Each stage assumes the associated GFR level has been in effect for at least three months. ?Stages 1 to 5, with or without kidney disease, indicate chronic kidney disease. Notes: Determination of stages one and two (with eGFR >59mL/min/1.73 m2) requires estimation of kidney damage for at least three months as defined by structural or functional abnormalities of the kidney, manifested by either:Pathological abnormalities or Markers of kidney damage (including abnormalities in the composition of the blood or urine or abnormalities in imaging tests). [facility] WITH [id number] 09:27:03 Test Item Value Reference Range Interpretation Comments WBC (test code = See_Comment [Automated 9225-2) message] The sy stem which generated this result transmitted reference range : 4.20 - 10.70 10*3/?L. The reference range was not used to interpret this result as normal/abnormal . RBC (test code = See_Comment [Automated 934-8) message] The sy stem which generated this result transmitted reference range : 4.26 - 5.52 10*6/?L. The reference range was not used to interpret this result as normal/abnormal . HGB (test code = 14.9 g/dL 12.2-16.4 718-7) HCT (test code = 44.6 % 38.4-49.3 4544-3) MCV (test code = 90.5 fL 81.7-95.6 787-2) MCH (test code = 30.2 pg 26.1-32.7 785-6) MCHC (test code = 33.4 g/dL 31.2-35.0 786-4) RDW-SD (test code = 46.1 fL 38.5-51.6 82143-3) RDW-CV (test code = 13.8 % 12.1-15.4 788-0) PLT (test code = See_Comment [Automated 777-3) message] The sy stem which generated this result transmitted reference range : 150 - 328 10*3/ ?L. The reference r jasmin was not used to interpret this result as normal/abnormal . MPV (test code = 9.1 fL 9.8-13.0 L 39728-6) NRBC/100 WBC (test See_Comment [Automat ed code = 8570387490) message] The system which generated this result transmitted reference range : 0.0 - 10.0 /100 WBCs. The refer ence range was not u sed to interpret th is result as normal/abnormal . NRBC x10^3 (test code See_Comment [Auto mated = 9548900546) message] The s ystem which generated this result transmitted reference range : 10*3/?L. The reference range was not used to interpret this result as normal/abnormal . GRAN MAT (NEUT) % 75.8 % (test code = 770-8) IMM GRAN % (test code 0.50 % = 0778768875) LYMPH % (test code = 14.1 % 736-9) MONO % (test code = 6.4 % 5905-5) EOS % (test code = 2.3 % 713-8) BASO % (test code = 0.9 % 706-2) GRAN MAT x10^3(ANC) 4.94 10*3/uL 1.99-6.95 (test code = 3841630808) IMM GRAN x10^3 (test 0.03 10*3/uL 0.00-0.06 code = 0881349702) LYMPH x10^3 (test code 0.92 10*3/uL 1.09-3.23 L = 731-0) MONO x10^3 (test code 0.42 10*3/uL 0.36-1.02 = 742-7) EOS x10^3 (test code = 0.15 10*3/uL 0.06-0.53 711-2) BASO x10^3 (test code 0.06 10*3/uL 0.01-0.09 = 704-7) Lab Interpretation Abnormal (test code = 08932-4) [facility]"
[2022-10-29 04:27] LABS: Absolute Lymphocytes (CBC) 2.1 K/uL (0.7-4.9); Hematocrit 48.3 % (39.6-49.0); Lymphocytes % 15.3 % (15.3-44.8); MCV 90.7 fL (80-100); MPV 7.3 fL (7.6-11.3); RBC Red Blood Cell Count 5.32 M/uL (4.33-5.43)
[2022-10-29] MEDS ORDERED: NA CHLORIDE 0.9% 1,000 ML ONE (04:32)
[2022-10-29] MEDS ORDERED: METHYLPREDNISOLONE 125 MG INJ ONE (04:32)
[2022-10-29] MEDS ORDERED: PROMETHAZINE 25 MG TABLET ONE (04:32)
[2022-10-29] MEDS ORDERED: guaiFENesin 100 MG/5 ML UCUP ONE (04:32)
[2022-10-29] MEDS ORDERED: ALBUTEROL 2.5 MG/3 ML NEB SOL ONE (04:32)
[2022-10-29 04:33] LABS: Protime INR 0.9
[2022-10-29 04:44] LABS: ALT/SGPT 22 U/L (16-61); AST/SGOT 8 U/L (15-37); Albumin 3.3 g/dL (3.4-5.0); Alkaline Phosphatase 96 U/L (45-117); BUN Blood Urea Nitrogen 9 mg/dL (7-18); Bicarbonate 31 mEq/L (21-32); Bilirubin Total 0.3 mg/dL (0.2-1.0); Creatine Phosphokinase 27 U/L (39-308); Glomerular Filtration Rate 93 ml/min (=/>90); Glucose Level 123 mg/dL (74-106); Lipase 21 U/L (13-75); Magnesium 2.3 mg/dL (1.6-2.4); NT PRO-BNP 73 pg/mL (<125); Potassium 3.9 mEq/L (3.5-5.1); Protein, Total 6.5 g/dL (6.4-8.2); Sodium Level 137 mEq/L (136-145); Troponin High Sensitivity 4.7 pg/mL (<58.9)
[2022-10-29 04:47] LABS: Bilirubin Direct < 0.1 mg/dL (0-0.2); Bilirubin Indirect, Calculated ND mg/dL (0.2-0.8)
--- NOTE | 2022-10-29 05:55 | ER ---
Nurse's Notes [facility] Name: Iron Haynes Age: 62 yrs Sex: Male : 1960 Arrival Date: 10/29/2022 Time: 03:52 Bed 13 Private MD: Diagnosis: COPD/ Chronic obstructive pulmonary disease with (acute) exacerbation;Acute bronchitis, unspecified Presentation: 10/29 04:02 Chief complaint: Patient states: shortness of breath that started today. pt reports he as6 was trying to sleep and couldn't catch his breath. Coronavirus screen: At this time, the client does not indicate any symptoms associated with coronavirus-19. Ebola Screen: No symptoms or risks identified at this time. Initial Sepsis Screen: Does the patient meet any 2 criteria? No. Patient's initial sepsis screen is negative. Does the patient have a suspected source of infection? No. Patient's initial sepsis screen is negative. Risk Assessment: Do you want to hurt yourself or someone else? Patient reports no desire to harm self or others. Onset of symptoms was October 29, 2022. 04:02 Acuity: EDUARD 3 as6 04:02 Method Of Arrival: Ambulatory as6 Triage Assessment: 06:16 General: Appears comfortable, Behavior is calm, cooperative. Respiratory: Onset: The ll3 symptoms/episode began/occurred suddenly, the patient has moderate shortness of breath. Historical: - Allergies: 04:02 Codeine; as6 - PMHx: 04:02 COPD; osteomyelitis; as6 - PSHx: 04:02 Bilateral Inguinal Hernia Repair; toe amputation; as6 - Immunization history:: Client reports having NOT received the Covid vaccine. - Social history:: Smoking status: Patient reports the use of cigarette tobacco products, smokes one-half pack cigarettes per day. - Family history:: not pertinent. Screenin:12 [facility] ED Fall Risk Assessment (Adult) History of falling in the last 3 months, ll3 including since admission No falls in past 3 months (0 pts) Confusion or Disorientation No (0 pts) Intoxicated or Sedated No (0 pts) Impaired Gait No (0 pts) Mobility Assist Device Used No (0 pt) Altered Elimination No (0 pt) Score/Fall Risk Level 0 - 2 = Low Risk Oriented to surroundings, Maintained a safe environment, Educated pt \T\ family on fall prevention, incl call for assistance when getting out of bed. Abuse screen: Denies threats or abuse. Denies injuries from another. Nutritional screening: No deficits noted. Tuberculosis screening: No symptoms or risk factors identified. Assessment: 04:15 General: Appears uncomfortable, Behavior is calm, cooperative. Pain: Denies pain. ll3 Neuro: Level of Consciousness is awake, alert, obeys commands, Oriented to person, place, time, situation. Cardiovascular: Rhythm is sinus rhythm. Respiratory: Airway is patent Respiratory effort is even, labored, Respiratory pattern is hyperventilation. Respiratory: Reports shortness of breath cough that is. Derm: Skin is pink, warm \T\ dry. Vital Signs: 04:02 BP 109 / 75; Pulse 110; Resp 22 S; Temp 97.9(O); Pulse Ox 93% on R/A; Weight 68.04 kg as6 (R); Height 6 ft. 0 in. (R); 05:00 BP 131 / 83; Pulse 95; Resp 24; Pulse Ox 99% on Nebulizer Mask; ll3 06:15 BP 110 / 67; Pulse 93; Resp 23; Pulse Ox 92% on R/A; ll3 08:10 BP 106 / 68; Pulse 82; Resp 22; Pulse Ox 95% on 2 lpm NC; ko1 04:02 Body Mass Index 20.34 (68.04 kg, 182.88 cm) as6 ED Course: 03:53 Patient arrived in ED. ja2 04:01 Arm band placed on. as6 04:04 Triage completed. as6 04:08 Jw Edward MD is Attending Physician. sp4 04:53 XRAY CXR (1 view) In Process Unspecified. EDMS 05:54 Vincenzo Portillo MD is Hospitalizing Provider. sp4 06:15 Patient has correct armband on for positive identification. Bed in low position. Call ll3 light in reach. Side rails up X 1. 06:15 No provider procedures requiring assistance completed. ll3 07:05 Jess Valencia, [place] is Primary Nurse. ko1 09:32 Patient admitted, IV remains in place. ko1 Administered Medications: 04:44 Drug: Albuterol Inhalation 2.5 mg Route: Inhalation; ll3 04:44 Drug: MethylPrednisoLONE IVP 125 mg Route: IVP; Site: right forearm; ll3 06:11 Follow up: Response: No adverse reaction ll3 04:44 Drug: NS 0.9% IV 1000 ml Route: IV; Rate: 125 ml/hr; Site: left forearm; ll3 04:44 Drug: Dextromethorphan-Guaifenesin PO Liquid 10 mg-100 mg/5 mL 10 ml Route: PO; ll3 06:12 Follow up: Response: No adverse reaction; Marked relief of symptoms ll3 04:44 Drug: Promethazine PO 25 mg Route: PO; ll3 06:12 Follow up: Response: No adverse reaction ll3 05:14 Drug: Albuterol Inhalation 2.5 mg Route: Inhalation; ll3 05:45 Drug: Albuterol Inhalation 2.5 mg Route: Inhalation; ll3 06:09 Drug: Zithromax IVPB 500 mg Route: IVPB; Infused Over: 1 hrs; Site: right forearm; ll3 06:59 Drug: morphine IVP or IV 4 mg Route: IVP; Infused Over: 4 mins; Site: right forearm; ll3 08:04 Follow up: Response: No adverse reaction ko1 08:04 Follow up: Response: Pain is decreased ko1 06:59 Drug: Ketorolac IVP 30 mg Route: IVP; Site: right forearm; ll3 08:04 Follow up: Response: No adverse reaction; Pain is decreased ko1 06:59 Drug: Famotidine IVP 20 mg Route: IVP; Site: right forearm; ll3 08:05 Follow up: Response: No adverse reaction; Marked relief of symptoms ko1 Medication: 06:15 VIS not applicable for this client. ll3 Outcome: 05:55 Decision to Hospitalize by Provider. sp4 09:32 Admitted to Tele accompanied by tech, via wheelchair, room 211, with chart, Report ko1 called to Ivory 09:32 Condition: stable 09:32 Discharge instructions given to patient, Instructed on the need for admit, Demonstrated understanding of instructions. 09:42 Patient left the ED. ko1 Signatures: Dispatcher [employer] EDMS Lisa Milan Ashby, RN RN as6 Madeline Nguyen RN RN ll3 Jess Valencia RN RN ko1 Potepalov, Jw, MD MD sp4
--- NOTE | 2022-10-29 05:56 | EDPHYS ---
Physician Documentation [facility] Name: Iron Haynes Age: 62 yrs Sex: Male : 1960 Arrival Date: 10/29/2022 Time: 03:52 Bed 13 Private MD: ED Physician Jw Edward HPI: 10/29 04:11 This 62 yrs old Male presents to ER via Ambulatory with complaints of sp4 Shortness Of Breath. 05:36 62-year-old male with past medical history of COPD presents worsening shortness of sp4 breath starting 2 hours ago. Patient reports cough and greenish sputum.. Historical: - Allergies: 04:02 Codeine; as6 - PMHx: 04:02 COPD; osteomyelitis; as6 - PSHx: 04:02 Bilateral Inguinal Hernia Repair; toe amputation; as6 - Immunization history:: Client reports having NOT received the Covid vaccine. - Social history:: Smoking status: Patient reports the use of cigarette tobacco products, smokes one-half pack cigarettes per day. - Family history:: not pertinent. ROS: 05:36 Constitutional: Negative for fever, chills, and weight loss, Eyes: Negative for injury, sp4 pain, redness, and discharge, ENT: Negative for injury, pain, and discharge, Neck: Negative for injury, pain, and swelling, Cardiovascular: Negative for chest pain, palpitations, and edema, Respiratory: Positive for shortness of breath, positive for wheezing, positive cough, positive for greenish sputum Abdomen/GI: Negative for abdominal pain, nausea, vomiting, diarrhea, and constipation, Back: Negative for injury and pain, : Negative for injury, bleeding, discharge, and swelling, MS/Extremity: Negative for injury and deformity, Skin: Negative for injury, rash, and discoloration, Neuro: Negative for headache, weakness, numbness, tingling, and seizure, Psych: Negative for depression, anxiety, Allergy/Immunology: Negative for hives, rash, and allergies Endocrine: Negative for neck swelling, polydipsia, polyuria, polyphagia, and weight changes Hematologic/Lymphatic: Negative for swollen nodes, abnormal bleeding, and unusual bruising Exam: 05:36 Constitutional: This is a well developed, well nourished patient who is awake, alert, sp4 and in no acute distress. Head/Face: Normocephalic, atraumatic. Eyes: Pupils equal round and reactive to light, extra-ocular motions intact. Lids and lashes normal. Conjunctiva and sclera are not injected. Cornea within normal limits. Periorbital areas with no swelling, redness, or edema. ENT: Nares patent. No nasal discharge, no septal abnormalities noted. Tympanic membranes are normal and external auditory canals are clear. Oropharynx with no redness, swelling, or masses, exudates, or evidence of obstruction, uvula midline. Mucous membranes moist. Neck: Trachea midline, no thyromegaly or masses palpated, and no cervical lymphadenopathy. Supple, full range of motion without nuchal rigidity, or vertebral point tenderness. Chest/axilla: Normal chest wall appearance and motion. Nontender with no deformity. No lesions are appreciated. Cardiovascular: Regular rate and rhythm with a normal S1 and S2. No gallops, murmurs, or rubs. Normal PMI, no JVD. No pulse deficits. Respiratory: Lungs have equal breath sounds bilaterally, bilateral moderate expiratory wheezing consistent with COPD exacerbation, bilateral mild retractions, abdominal retractions, air movement present in all lung welsh. Abdomen/GI: Soft, non-tender, with normal bowel sounds. No distension or tympany. No guarding or rebound. No evidence of tenderness throughout. Back: No spinal tenderness. No costovertebral tenderness. Male : Normal genitalia with no discharge or lesions. Skin: Warm, dry with normal turgor. Normal color with no rashes, no lesions, and no evidence of cellulitis. MS/ Extremity: Pulses equal, no cyanosis. Neurovascular intact. Full, normal range of motion. Neuro: Awake and alert, GCS 15, oriented to person, place, time, and situation. Cranial nerves II-XII grossly intact. Motor strength 5/5 in all extremities. Sensory grossly intact. Psych: Awake, alert, with orientation to person, place and time. Behavior, mood, and affect are within normal limits 05:43 ECG was reviewed by the Attending Physician. EKG time 0 431, there is sinus tachycardia sp4 at a rate of 101, no ST elevation or depression, rightward axis, otherwise normal EKG. Vital Signs: 04:02 BP 109 / 75; Pulse 110; Resp 22 S; Temp 97.9(O); Pulse Ox 93% on R/A; Weight 68.04 kg as6 (R); Height 6 ft. 0 in. (R); 05:00 BP 131 / 83; Pulse 95; Resp 24; Pulse Ox 99% on Nebulizer Mask; ll3 06:15 BP 110 / 67; Pulse 93; Resp 23; Pulse Ox 92% on R/A; ll3 08:10 BP 106 / 68; Pulse 82; Resp 22; Pulse Ox 95% on 2 lpm NC; ko1 04:02 Body Mass Index 20.34 (68.04 kg, 182.88 cm) as6 MDM: 04:13 Patient medically screened. sp4 05:51 Differential diagnosis: Anemia CHF exacerbation, Chronic Obstructive Pulmonary Disease sp4 pneumonia, Psychogenic pulmonary edema, reactive airway disease, Sepsis. Antibiotic administration: Zithromax IV. For acute bacterial bronchitis.. Data reviewed: vital signs, nurses notes, old medical records, lab test result(s), EKG, radiologic studies, plain films. Consideration of Admission/Observation Patient was admitted/placed on observation. Escalation of care including admission/observation considered. Management of patient was discussed with the following: Hospitalist: Dr. Carlos Moss . ED course: There is COPD exacerbation based on examination and history also green sputum is indicative of acute bacterial bronchitis. Patient warrants admission for COPD exacerbation, diffuse wheezing, with management with IV steroids and breathing treatments.. 10/29 04:12 Order name: BMP; Complete Time: 10/29 04:12 Order name: Blood Culture Adult (2) 4 10/29 04:12 Order name: CBC with Diff; Complete Time: :10/29 04:12 Order name: CPK; Complete Time: 05:4 10/29 04:12 Order name: Hepatic Function; Complete Time: :4 10/29 04:12 Order name: Lipase; Complete Time: 05:4 10/29 04:12 Order name: Magnesium; Complete Time: :4 10/29 04:12 Order name: NT PRO-BNP; Complete Time: :4 10/29 04:12 Order name: PT-INR; Complete Time: :4 10/29 04:12 Order name: Ptt, Activated; Complete Time: :10/29 04:12 Order name: Troponin HS; Complete Time: 05:43 4 10/29 04:13 Order name: Blood Culture Adult (2) 4 10/29 05:54 Order name: SARS RAPID 4 10/29 05:54 Order name: Influenza Screen (a \T\ B) 4 10/29 04:12 Order name: XRAY CXR (1 view) 4 10/29 04:12 Order name: EKG; Complete Time: 04:13 4 10/29 04:12 Order name: Cardiac monitoring; Complete Time: 04:45 4 10/29 04:12 Order name: EKG - Nurse/Tech; Complete Time: 04:45 4 10/29 04:12 Order name: IV Saline Lock; Complete Time: 04:45 4 10/29 04:12 Order name: Labs collected and sent; Complete Time: 05:14 4 10/29 04:12 Order name: O2 Per Protocol; Complete Time: 04:44 4 10/29 04:12 Order name: O2 Sat Monitoring; Complete Time: 04:44 sp4 EC:43 Rate is 101 beats/min. Rhythm is regular, Sinus tachycardia. Right axis deviation sp4 noted. NH interval is normal. QRS interval is normal. QT interval is normal. T waves are Normal. No ST changes noted. Clinical impression: No evidence of ischemia. Interpreted by me. Administered Medications: 04:44 Drug: Albuterol Inhalation 2.5 mg Route: Inhalation; ll3 04:44 Drug: MethylPrednisoLONE IVP 125 mg Route: IVP; Site: right forearm; ll3 06:11 Follow up: Response: No adverse reaction ll3 04:44 Drug: NS 0.9% IV 1000 ml Route: IV; Rate: 125 ml/hr; Site: left forearm; ll3 04:44 Drug: Dextromethorphan-Guaifenesin PO Liquid 10 mg-100 mg/5 mL 10 ml Route: PO; ll3 06:12 Follow up: Response: No adverse reaction; Marked relief of symptoms ll3 04:44 Drug: Promethazine PO 25 mg Route: PO; ll3 06:12 Follow up: Response: No adverse reaction ll3 05:14 Drug: Albuterol Inhalation 2.5 mg Route: Inhalation; ll3 05:45 Drug: Albuterol Inhalation 2.5 mg Route: Inhalation; ll3 06:09 Drug: Zithromax IVPB 500 mg Route: IVPB; Infused Over: 1 hrs; Site: right forearm; ll3 06:59 Drug: morphine IVP or IV 4 mg Route: IVP; Infused Over: 4 mins; Site: right forearm; ll3 08:04 Follow up: Response: No adverse reaction ko1 08:04 Follow up: Response: Pain is decreased ko1 06:59 Drug: Ketorolac IVP 30 mg Route: IVP; Site: right forearm; ll3 08:04 Follow up: Response: No adverse reaction; Pain is decreased ko1 06:59 Drug: Famotidine IVP 20 mg Route: IVP; Site: right forearm; ll3 08:05 Follow up: Response: No adverse reaction; Marked relief of symptoms ko1 Disposition Summary: 10/29/22 05:55 Hospitalization Ordered Hospitalization Status: Inpatient Admission sp4 Provider: Vincenzo Portillo Location: Telemetry/[facility] (Inpatient) sp4 Condition: Stable sp4 Problem: new sp4 Symptoms: have improved sp4 Bed/Room Type: Standard sp4 Room Assignment: 211(10/29/22 09:21) eb Diagnosis - COPD/ Chronic obstructive pulmonary disease with (acute) exacerbation sp4 - Acute bronchitis, unspecified sp4 Forms: - Medication Reconciliation Form sp4 - SBAR form sp4 Signatures: Dispatcher [employer] Tona Brunson Ashby, RN RN as6 Madeline Nguyen RN RN ll3 Jw Edward MD MD sp4 Jess Valencia RN ko1 Corrections: (The following items were deleted from the chart) 09:21 05:55 sp4 eb
[2022-10-29] MEDS ORDERED: NA CHLORIDE 0.9% 100 ML ONE (06:01)
[2022-10-29] MEDS ORDERED: AZITHROMYCIN 500 MG INJ IVPB ONE (06:01)
[2022-10-29] MEDS ORDERED: NA CHLORIDE 0.9% 250 ML ONE (06:07)
[2022-10-29 06:35] LABS: SARS-CoV-2 Antigen Rapid Res Negative (Negative)
[2022-10-29] MEDS ORDERED: FAMOTIDINE 20 MG/2 ML VIAL IV ONE (07:00)
[2022-10-29] MEDS ORDERED: MORPHINE 4 MG/ML SYR ONE (07:00)
[2022-10-29] MEDS ORDERED: KETOROLAC 30 MG/ML INJ ONE (07:00)
--- NOTE | 2022-10-29 09:20 | P.HP ---
Certification for Inpatient Patient admitted to: Observation With expected LOS: <2 Midnights Practitioner: I am a practitioner with admitting privileges, knowledge of patient current condition, hospital course, and medical plan of care. Services: Services provided to patient in accordance with Admission requirements found in Title 42 Section 412.3 of the Code of Federal Regulations Patient History Date of Service: 10/29/22 Reason for admission: Shortness of breath History of Present Illness: 62-year-old gentleman with a history of COPD, tobacco use presented to the emergency department for shortness of breath, wheezing and cough of onset last night. Patient stated his symptoms got worse and therefore presented to the emergency for evaluation. He denied any chest pain. He reported cough productive of greenish colored sputum. He mentioned his last hospitalization for COPD exacerbation was about a week ago at [facility]. Patient continues to smoke half a pack of cigarettes per day. Chest x-ray done in the emergency department does not show any infiltrate. Blood work showed mild leukocytosis. Patient given bronchodilator treatment and IV steroids with partial improvement. He is admitted for further management. Allergies codeine Adverse Reaction (Verified 10/29/22 09:54) Nausea/Vomiting - Past Medical/Surgical History -: COPD - Family History Family History: Reviewed- Non-Contributory - Social History Smoking Status: Current every day smoker CD- Drugs: No Place of Residence: Home Review of Systems Other: Patient denied any nausea vomiting or abdominal pain or diarrhea. He also denied any confusion or headache. Except as documented, all other systems reviewed and negative. Physical Examination - Physical Exam General: Alert, In no apparent distress, Oriented x3 HEENT: Atraumatic, Mucous membr. moist/pink, Sclerae nonicteric Neck: Supple, JVD not distended Respiratory: Diminished (Bilateral), Expiratory wheezes (Mild scattered wheezes) Cardiovascular: No edema, Regular rate/rhythm, Normal S1 S2 Capillary refill: <2 Seconds Gastrointestinal: Normal bowel sounds, Soft and benign, Non-distended, No tenderness Musculoskeletal: No swelling, No tenderness Integumentary: No rashes, No cyanosis Neurological: Normal speech, Normal strength at 5/5 x4 extr, Cranial nerves 3-12 intact Lymphatics: No axilla or inguinal lymphadenopathy - Studies Laboratory Data (last 24 hrs) 10/29/22 04:19: PT 9.9, INR 0.90, APTT 38.1 H 10/29/22 04:19: WBC 13.50 H, Hgb 15.7, Hct 48.3, Plt Count 286 10/29/22 04:19: Sodium 137, Potassium 3.9, BUN 9, Creatinine 0.93, Glucose 123 H, Magnesium 2.3, Total Bilirubin 0.3, AST 8 L, ALT 22, Alkaline Phosphatase 96, Lipase 21 Microbiology Data (last 24 hrs): 10/29/22 06:06 Nasopharnyx Influenza Type A Antigen Screen - Final 10/29/22 06:06 Nasopharnyx Influenza Type B Antigen Screen - Final Assessment and Plan - Problems (Diagnosis) (1) COPD exacerbation Current Visit: Yes Status: Acute (2) Tobacco use Current Visit: Yes Status: Acute - Plan Place patient under observation. Scheduled bronchodilators Oral prednisone 20 mg twice daily Start oral Levaquin for infective bronchitis. Supplemental oxygen as needed. Diet as tolerated Activity as tolerated. Smoking cessation advised. - Advance Directives Does patient have a Living Will: No Does patient have a Durable POA for Healthcare: No
[2022-10-29] MEDS ORDERED: ACETAMINOPHEN 500 MG TAB PO PRN (09:54)
[2022-10-29 10:04] VITALS: BMI 20.3
--- NOTE | 2022-10-29 11:16 | EKG ---
Test Date: 2022-10-29 Test Time: 04:31:17 Copy Holder: LL MEASUREMENT RESULTS: Intervals: Rate: 101 OH: 128 QRSD: 86 QT: 340 QTc: 440 [place]: P: 86 OH: 128 QRS: 93 T: 84 INTERPRETIVE STATEMENTS: Sinus tachycardia Rightward axis Borderline ECG Compared to ECG 08/19/2018 00:51:24 Right-axis deviation now present Sinus rhythm no longer present Myocardial infarct finding no longer present Electronically Signed On 10-29-22 11:16:07 CDT by Martín Arias
[2022-10-29] MEDS ORDERED: METHYLPREDNISOLONE 40 MG INJ IV SCH (12:00)
[2022-10-29 12:41] LABS: Urine Bacteria None Seen /HPF (<20); Urine Bilirubin NEGATIVE (Negative); Urine Blood Negative (Negative); Urine Clarity Clear (Clear); Urine Color Light-Yellow (Yellow); Urine Glucose NEGATIVE (Negative); Urine Protein NEGATIVE (Negative); Urine RBC <5 /HPF (None Seen); Urine Urobilinogen Normal (Normal)
[2022-10-29] MEDS: NICOTINE 14 MG/PAT TD SCH (13:31)
[2022-10-29] MEDS: IPRATROPIUM BROM 0.5MG/2.5ML NEB SCH ×2 (14:30→19:00)
[2022-10-29] MEDS: ALBUTEROL 2.5 MG/3 ML NEB SOL NEB SCH ×2 (14:30→19:00)
[2022-10-29] MEDS: predniSONE 20 MG TAB PO SCH (20:19)
--- NOTE | 2022-10-29 21:01 | RAD REPORT ---
EXAM DESCRIPTION: RAD - Chest Single View - 10/29/2022 4:51 am CLINICAL HISTORY: The patient is 62 years old and is Male; COPD TECHNIQUE: Frontal view of the chest. COMPARISON: No relevant prior studies available. FINDINGS: Lungs: Unremarkable. No consolidation. Pleural space: Unremarkable. No pneumothorax. Heart: Unremarkable. Mediastinum: Unremarkable. Bones/joints: Suggestion of an old fracture involving the left seventh rib. IMPRESSION: No acute findings in the chest. Electronically signed by: Kaushik Aquino MD 10/29/2022 5:17 AM CDT Due to temporary technical issues with the PACS/Fluency reporting system, reports are being signed by the in house radiologists without review as a courtesy to insure prompt reporting. The interpreting radiologist is fully responsible for the content of the report.
[2022-10-30] MEDS: IPRATROPIUM BROM 0.5MG/2.5ML NEB SCH ×3 (01:00→14:15)
[2022-10-30] MEDS: ALBUTEROL 2.5 MG/3 ML NEB SOL NEB SCH ×3 (01:00→14:15)
[2022-10-30 04:35] LABS: Absolute Lymphocytes (CBC) 0.6 K/uL (0.7-4.9); Hematocrit 42.2 % (39.6-49.0); Lymphocytes % 3.8 % (15.3-44.8); MCV 90.4 fL (80-100); MPV 7.6 fL (7.6-11.3); RBC Red Blood Cell Count 4.67 M/uL (4.33-5.43)
[2022-10-30 05:08] LABS: Magnesium 2.5 mg/dL (1.6-2.4); Potassium 4.4 mEq/L (3.5-5.1); Thyroid Stimulating Hormone 0.282 uIU/mL (0.358-3.740)
[2022-10-30 05:38] LABS: Blood Morphology Comment NOT SEEN (NOT SEEN); Platelet Estimate ADEQ
[2022-10-30] MEDS: POTASS/SODIUM PHOSPHATE 1 PKT POWD.PACK PO SCH ×7 (08:00→15:35)
[2022-10-30] MEDS ORDERED: ENOXAPARIN 40 MG/0.4 ML SQ SCH (09:00)
[2022-10-30] MEDS: NICOTINE 14 MG/PAT TD SCH (11:00)
[2022-10-30] MEDS: predniSONE 20 MG TAB PO SCH (11:01)
--- NOTE | 2022-10-30 13:43 | P.DS ---
Admission Date: 10/29/22 Discharge Date: 10/30/22 Disposition: ROUTINE DISCHARGE Discharge Condition: FAIR Reason for Admission: Shortness of breath - Problems (1) COPD exacerbation Current Visit: Yes Status: Acute (2) Tobacco use Current Visit: Yes Status: Acute Brief History of Present Illness: 62-year-old gentleman with a history of COPD, tobacco use presented to the emergency department for shortness of breath, wheezing and cough of onset last night. Patient stated his symptoms got worse and therefore presented to the emergency for evaluation. He denied any chest pain. He reported cough productive of greenish colored sputum. He mentioned his last hospitalization for COPD exacerbation was about a week ago at [facility]. Patient continues to smoke half a pack of cigarettes per day. Chest x-ray done in the emergency department did not show any infiltrate. Blood work showed mild leukocytosis. Patient given bronchodilator treatment and IV steroids with partial improvement. He was admitted for further management. Hospital Course: Patient was treated with bronchodilators, and neb as well as oral prednisone. His shortness of breath and wheezing improved. Patient tolerated to room air with good oxygen saturation, both at rest and with ambulation. He has clinically improved. Smoking cessation advised. Vitals are stable for discharge. Vital Signs/Physical Exam: Temp Pulse Resp BP Pulse Ox 96.5 F L 78 16 114/73 99 10/30/22 08:00 10/30/22 08:00 10/30/22 08:00 10/30/22 08:00 10/30/22 08:00 General: Alert, In no apparent distress, Oriented x3 HEENT: Mucous membr. moist/pink Neck: Supple, JVD not distended Respiratory: Clear to auscultation bilaterally, Normal air movement Cardiovascular: No edema, Regular rate/rhythm, Normal S1 S2 Gastrointestinal: Soft and benign, Non-distended, No tenderness Musculoskeletal: No swelling Integumentary: No rashes Neurological: Normal strength at 5/5 x4 extr Laboratory Data at Discharge: WBC 15.20 thou/uL (4.3-10.9) H 10/30/22 03:53 Hgb 13.8 g/dL (13.6-17.9) D 10/30/22 03:53 Hct 42.2 % (39.6-49.0) 10/30/22 03:53 Plt Count 271 thou/uL (152-406) 10/30/22 03:53 PT 9.9 SECONDS (9.5-12.5) 10/29/22 04:19 INR 0.90 10/29/22 04:19 APTT 38.1 SECONDS (24.3-36.9) H 10/29/22 04:19 Sodium 137 mEq/L (136-145) 10/30/22 03:53 Potassium 4.4 mEq/L (3.5-5.1) 10/30/22 03:53 BUN 17 mg/dL (7-18) 10/30/22 03:53 Creatinine 0.76 mg/dL (0.70-1.30) 10/30/22 03:53 Glucose 152 mg/dL (74-106) H 10/30/22 03:53 Phosphorus 2.0 mg/dL (2.5-4.9) L 10/30/22 03:53 Magnesium 2.5 mg/dL (1.6-2.4) H 10/30/22 03:53 Total Bilirubin 0.3 mg/dL (0.2-1.0) 10/29/22 04:19 AST 8 U/L (15-37) L 10/29/22 04:19 ALT 22 U/L (16-61) 10/29/22 04:19 Alkaline Phosphatase 96 U/L (45-117) 10/29/22 04:19 Lipase 21 U/L (13-75) 10/29/22 04:19 Home Medications: Fluticasone/Umeclidin/Vilanter [Trelegy Ellipta 100-62.5-25] 1 each IH DAILY #30 units 10/30/22 predniSONE [Prednisone*] 20 mg PO BID #10 tab 10/30/22 New Medications: predniSONE [Prednisone*] 20 mg PO BID #10 tab Fluticasone/Umeclidin/Vilanter [Trelegy Ellipta 100-62.5-25] 1 each IH DAILY #30 units Diet: AHA Activity: Ad allie Followup: Neo Morales MD [Primary Care Provider] - 1-2 Weeks Time spent managing pt's care (in minutes): 28
[2022-10-30 16:46] VITALS: BP 116/65; TEMP 98.7
[2022-10-30 18:43] VITALS: O2SAT 92
== END 2022-10-30 17:45 | disposition home or self-care (01) ==
LOC: ER 03:52 → ERHOLD 09:15 → 2ND 09:33
PROVIDERS: ADMIT Internal Medicine; ATTEND Internal Medicine
DX: J44.1 Chronic obstructive pulmonary disease with (acute) exacerbation (principal); F17.210 Nicotine dependence, cigarettes, uncomplicated; D72.829 Elevated white blood cell count, unspecified; Z88.6 Allergy status to analgesic agent; Z20.822 Contact with and (suspected) exposure to COVID-19
CPT/HCPCS: 93005; 87040 ×2; 85025 ×2; 81001; 80048 ×2; 36415 ×2; 83735 ×2; 82550; 84100; 85610; 80076; 85730; 84443; 84484; 83690; 83880; 87804 ×2; 71045; 96375; 96374; 99285; 87811; Q0169; J7512 ×3; J7613 ×6; J7644 ×5; J1650 ×2; J2930; J7050; J7030; G0378

== ENCOUNTER 2022-12-03 15:12 | Inpatient (IN) | payer OTHER ==
--- OUTSIDE RECORDS SUMMARY | 2022-12-03 15:20 | XMS REPORT | Continuity of Care Document ---
:1960 Author Organization [facility] t Address [address] [place] [address] Care Team Providers Name Role Phone BETTY SCHMITZ Primary Care Physician Unavailable BETTY SCHMITZ Attending Clinician Unavailable CED GUY Attending Clinician Unavailable Ced Guy MD Attending Clinician Jasmine Doshi RN Attending Clinician Unavailable FLORIAN NGUYEN Attending Clinician Unavailable Jonah Chauhan MD Attending Clinician Florian Nguyen DO Attending Clinician Ibis Roberts MD Attending Clinician Lalitha [place] Attending Clinician Unavailable Louie Mensah LVN Attending Clinician Unavailable Betty Carmichael Attending Clinician AISHWARYA MADERA Attending Clinician Unavailable Matthew Monge MD Attending Clinician Aishwarya Madera MD Attending Clinician Simon Pacheco MD Attending Clinician NGUYỄN GODDARD Attending Clinician Unavailable Nguyễn Goddard DO Attending Clinician Margret MARQUEZ, Joel A Attending Clinician Unavailable JAYCE ST Attending Clinician Unavailable Jayce St MD Attending Clinician Osiris SMITH Attending Clinician Unavailable Osiris Armas Attending Clinician Andrew LOCO, Neo Attending Clinician Yadira MARQUEZ, Imtiaz Gatica Attending Clinician Unavailable WILLA BRODY Attending Clinician Unavailable Ronn LOCO, Willa Gilman Attending Clinician ANNEMARIE KEENAN Attending Clinician Unavailable Annemarie Aceves Attending Clinician Salomón MARQUEZ, Areli Maravilla Attending Clinician Ashlee Song LVN Attending Clinician Elsie Ramos MD Attending Clinician Kamlesh Joeng MD Attending Clinician Rusty Sanchez MD Attending Clinician Onel Segundo DPM Attending Clinician Fuentes Cabrera MD Attending Clinician RUSTY SANCHEZ Attending Clinician Unavailable NEO MORALES Attending Clinician Unavailable CHASITY PARIS Attending Clinician Unavailable Chasity Paris DO Attending Clinician Doctor Unassigned, [place] Attending Clinician Unavailable SHERITA POP Attending Clinician Unavailable Sherita Chi Attending Clinician Lab, Ang - Db Attending Clinician Unavailable Shashi GRASS CUTTER, Ewa L Attending Clinician Pob, Adc Lab Main Attending Clinician Unavailable Ashlee Cho RN Attending Clinician Unavailable Only, Adc Test Attending Clinician Unavailable Michael Sanchez MD Attending Clinician MICHAEL SANCHEZ Attending Clinician Unavailable Edwina Ferraro PA-C Attending Clinician Unknown, Attending Attending Clinician Unavailable UNKNOWN, ATTENDING Attending Clinician Unavailable Mandie Hubbard Attending Clinician [phone] [facility] MARQUEZ, Christiana Attending Clinician Unavailable Gonzalo Cardoza DO Attending Clinician EJ HARRIS Attending Clinician Unavailable ELSIE RAMOS Attending Clinician Unavailable MATTHEW MONGE Attending Clinician Unavailable [facility] Attending Clinician Unavailable IBIS ROBERTS Admitting Clinician Unavailable Elsa LOCO, Ibis Admitting Clinician AISHWARYA MADERA Admitting Clinician Unavailable Aishwarya Madera MD Admitting Clinician FLORIAN NGUYEN Admitting Clinician Unavailable Florian Nguyen DO Admitting Clinician NGUYỄN GODDARD Admitting Clinician Unavailable Osiris SMITH Admitting Clinician Unavailable WILLA BRODY Admitting Clinician Unavailable Daniel LOCO, Rusty Admitting Clinician CHASITY PARIS Admitting Clinician Unavailable ELSIE RAMOS Admitting Clinician Unavailable MATTHEW MONGE Admitting Clinician Unavailable Payers Payer Name Policy Type Policy Number Effective Date Expiration Date S [facility] MEDICARE PART A [id number] 2022 \\T\\ B 00:00:00 Problems Condition Condition Condition Status Onset Resolution Last Treating Co mments Source Name Details Category Date Date Treatment Clinician Date Chronic Chronic Disease Active Univers obstructiv obstructiv 7-17 it y of e e 00:00: [place] pulmonary pulmonary 00 Medi sal disease, disease, Branch unspecifie unspecifie d 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 Uni vers acute acute 6-25 ity of exacerb[place] Acute Acute Disease Active Univers exacerbati exacerbati 6-18 it y of on of on of 00:00: [place] chronic chronic 00 Medical obstructiv obstructiv Br anch e e pulmonary pulmonary disease disease (COPD) (COPD) Shortness Shortness Disease Active Uni vers of breath of breath 5-21 ity of 00:00: [address] Branch Smoker Smoker Disease Active Univers 1-24 ity of 00:00: [place] 00 Medical Branch COPD COPD Disease Active Univers (chronic (chronic 3-19 ity of obstructiv obstructiv [place] 00 Medical pulmonary pulmonary Bran ch disease) disease) Osteomyeli Osteomyeli Disease Active U nivers tis tis 3-15 ity of 00:00: [place] 00 Medical Branch Hypoxia Hypoxia Disease Active 2017-04 Univers 2-26 ity of 00:00: [place] 00 Medical Branch Allergies, Adverse Reactions, Alerts Allergy Allergy Status Severity Reaction(s) Onset Inactive Treating Comm ents Source Name Type Date Date Clinician CODEINE DRUG Active N/V Univers INGREDI 1-19 ity of 00:00: [place] 00 Medical Branch Codeine Propensi Active Nausea Univers ty to and/or 19 ity of adverse Vomiting 00:00: [place] reaction 00 Medical s Branch Codeine Drug Active Unknown - Univer s Allergy See comments - ity of 00:00: [place] 00 Medical Branch Social History Social Habit Start Date Stop Date Quantity Comments Source History SDOH Social Unive rsity of Connections [facility] Med ical Together Branch History SDOH Social Unive rsity of Connections [facility] Medical Branch History SDOH Social Unive rsity of Connections [place] [facility] Membership Branch History SDOH Social Unive rsity of [facility] Medical Meetings Branch History SDOH University o f Physical Activity [facility] DPW Branch Gender identity [facility] [place] [facility] Sexual orientation Univer sity of [place] [facility] History SDOH University o f Alcohol Std Drinks [place] [facility] History SDOH University o f Alcohol Binge [place] [facility] al [facility] Alcohol intake 2022-11-28 2022-11-28 Current drinker Unive rsity of 00:00:00 00:00:00 of alcohol [place] Medical (finding) Branch Cigarettes smoked 2022-10-22 2022-10-22 Univers ity of current (pack per 00:00:00 00:00:00 [facility] edical ) - Reported Branch Cigarette 2022-10-22 2022-10-22 University of pack-years 00:00:00 00:00:00 [facility] Branch Tobacco use and 2022-10-22 2022-10-22 Smokeless Universit y of exposure 00:00:00 00:00:00 tobacco non-user [facility] dical Branch History SDOH Social 2022-10-16 2022-10-16 5 Unive rsity of Connections Phone 00:00:00 00:00:00 [facility] edical Branch History SDOH Social 2022-10-16 2022-10-16 5 Unive rsity of Connections Living 00:00:00 00:00:00 [place] [facility] History SDOH 2022-10-16 2022-10-16 0 University o f Physical Activity 00:00:00 00:00:00 [facility] edical MPS Branch History SDOH 2022-10-16 2022-10-16 4 University o f Financial 00:00:00 00:00:00 [place] [facility] History SDOH Food 2022-10-16 2022-10-16 1 Univers ity of Worry 00:00:00 00:00:00 [place] [facility] History SDOH Food 2022-10-16 2022-10-16 1 Univers ity of Scarcity 00:00:00 00:00:00 [place] [facility] History SDOH 2022-10-16 2022-10-16 2 University o f Transport Med 00:00:00 00:00:00 [place] Medic al Branch History SDOH 2022-10-16 2022-10-16 2 University o f Transport Non-Med 00:00:00 00:00:00 [facility] edical Branch History SDOH 2022-10-16 2022-10-16 2 University o f Housing Unable to 00:00:00 00:00:00 [facility] edical Pay Branch History SDOH 2022-10-16 2022-10-16 1 University o f Housing Places 00:00:00 00:00:00 [place] Medi sal Lived Branch History SDOH 2022-10-16 2022-10-16 2 University o f Housing Homeless 00:00:00 00:00:00 [place] Me dical Last Year Branch History SDOH 2022-10-16 2022-10-16 1 University o f Alcohol Frequency 00:00:00 00:00:00 [facility] edical Branch Alcohol Comment 2022-10-15 2022-10-15 social Universit y of 00:00:00 00:00:00 [place] [facility] Exposure to 2022-09-07 2022-09-17 Not sure University of SARS-CoV-2 (event) 00:00:00 00:52:00 [place] [facility] History of Social 2022-05-23 2022-05-23 Univers ity of function 00:00:00 00:00:00 [facility] History of tobacco 2019-06-17 Passive smoker Un iversity of use 00:00:00 [facility] Sex Ass[birth year] At [birth year] Universit y of 00:00:00 00:00:00 [facility] Smoking Status Start Date Stop Date Source Ex-smoker 2022-10-22 00:00:00 2022-10-22 00:00:00 Universi ty [facility] Smokes tobacco daily 2022-05-23 00:00:00 Univers ity [facility] Medications Ordered Filled Start Stop Current Ordering Indication Dosage Frequency Signature Comments Components Source Medication Medication Date Date Medication? Clinician (SIG) Name Name iopamidol 2022- No [id number] 75mL 75 mL, Univers (ISOVUE 11-29 Intravenou ity o f 370-500 mL) 05:00: 04:05 s, ONCE, 1 [place] injection 00 :00 dose, On Medica l 75 mL 11/29/22 Branch at 0000, Routine ipratropium 2022- No 3mL 3 mL, Univ ers -albuteroL 11-29 Inhalation it y of (DUONEB) 04:30: 04:15 , Q10M, 3 [place] 0.5 mg-3 00 :00 doses, Medical mg(2.5 mg First dose Bran ch base)/3 mL on Sun nebulizer 11/28/22 at solution 3 2330, Last mL dose on Sun11/28/22 at 2350, Routine methylpredn 2022- No 125mg 125 mg, U nivers isolone sod 11-29 Intravenou i ty of succ 04:15: 04:15 s, ONCE, 1 [place] (SOLU-MEDRO 00 :00 dose, On Medi sal L) Sun11/28/22 Branch injection at 2315, 2 125 mg mL aspirin 2022- No 325mg 325 mg, Unive rs tablet 325 11-29 Oral, ity of mg 04:15: 03:31 ONCE, 1 [place] 00 :00 dose, On Medical Sun11/28/22 Branch at 2315, Routine NaCl 0.9% 2022- No 500mL at 999 [facility] ers (NS) bolus 11-29 08-02 mL/hr, 500 it y of infusion 03:30: 04:50 mL, IV [place] 500 mL 00 :00 Infusion, Medical ONCE, 1 Branch dose, On Sun11/28/22 at 2230, STAT albuterol Yes [id number] 2{puff} Inhale 2 Univers 90 11-28 Puffs ity of mcg/actuati 00:00: every 4 [place] on inhaler 00 (four) Medical hours as Branch needed for Wheezing or Shortness of Breath. predniSONE Yes [id number] Take 40 mg Univers 20 mg 11-28 (2 ity of tablet 00:00: tablets) [place] 00 daily for Medical 5 days Branch doxycycline 0 Yes [id number] 100mg Take 1 Univers hyclate 100 11-28 capsule by it y of mg capsule 00:00: mouth in [place] 00 the Medical morning Branch and 1 capsule in the evening. methylPREDN Yes 40mg 40 mg, [facility] ers ISolone sod 11-15 Intravenou it y of succ 17:25: s, Q24H, [place] (SOLU-MEDRO 00 First dose Me dical L (PF)) (after Branch injection last 40 mg modificati on) on Sun11/15/22 at 1230, Until Discontinu ed, 1 mL predniSONE 2022- Yes [id number] 20mg Take 1 Univers 20 mg 11-15 tablet by ity of tablet 00:00: 04:59 mouth in [place] 00 :00 the Medical morning Branch for 4 days. predniSONE 0 2022- Yes [id number] 20mg Take 1 Univers 20 mg 11-1524 tablet by ity of tablet 00:00: 04:59 mouth in [place] 00 :00 the Medical morning Branch for 4 days. azithromyci 2022-0 2022- No 500mg 500 mg, U nivers n 11-14 Oral, ity of (ZITHROMAX) 14:00: 13:17 Q24H, 2 [place] tablet 500 00 :00 doses, Medical mg First dose Branch (after last modificati on) on Sun11/14/22 at 0900, Last dose on Sun11/15/22 at 0900, NAEEM
Re ason for Anti-Infec tive: Empiric Therapy for Suspected Infection< br>Empiric Therapy Site: Respirator y
Durat ion of therapy: 72 hours methylPREDN 2022- No 40mg 40 mg, Uni vers ISolone sod 11-13 Intravenou i ty of succ 19:00: 21:27 s, Q6H, [place] (SOLU-MEDRO 00 :11 First dose Me dical L (PF)) on Sun Branch injection 11/13/22 at 40 mg 1400, Until Discontinu ed, 1 mL Hyaluronida 2022- No 150U 150 Units, Univers se, Human 11-13 Subcutaneo ity of Recomb. 18:00: 17:25 us, ONCE, [place] (HYLENEX) 00 :00 1 dose, On Medi sal injection Sun [place] 150 Units 11/13/22 at 1300, Routine azithromyci 2022- No 500mg 500 mg, IV Univers n 11-13 Piggyback, ity of (ZITHROMAX) 16:00: 17:28 Q24H ABX, [place] 500 mg in 00 :38 3 doses, Medica l NaCl 0.9% First dose Bran ch (NS) 250 mL on Sun VIAL-MATE 11/13/22 at IV 1100, Last piggyback dose on Sun11/15/22 at 1100, Administer over 60 Minutes, 250 mL
Reas on for Anti-Infec tive: Empiric Therapy for Suspected Infection< br>Empiric Therapy Site: Respirator y
Durat ion of therapy: 72 hours enoxaparin Yes 40mg 40 mg, Unive rs (LOVENOX) 11-13 Subcutaneo ity of injection 14:00: [place], DAILY, [place] 40 mg 00 First dose Medical on Sun Branch 11/13/22 at 0900, Until Discontinu ed, Routine ipratropium Yes 3mL 3 mL, Unive rs -albuteroL 11-13 Inhalation ity of (DUONEB) 13:00: , QID, [place] 0.5 mg-3 00 First dose Medic al mg(2.5 mg on Sun)/3 mL 11/13/22 at nebulizer 0800, solution 3 Until mL Discontinu ed, Routine budesonide- 3-0 Yes 2{puff} 2 Puff, Univers formoteroL 11-13 Inhalation ity of (SYMBICORT) 13:00: , BID, [place] 80-4.5 00 First dose Medical mcg/actuati on Sun on inhaler 11/13/22 at 2 Puff 0800, Until Discontinu ed ipratropium 2022-0 Yes 3mL 3 mL, Unive rs -albuteroL 11-13 Inhalation ity of (DUONEB) 09:01: , QIDPRN, [place] 0.5 mg-3 28 Starting Medical mg(2.5 mg on Sun)/3 mL 11/13/22 at nebulizer 0401, solution 3 Until mL Discontinu ed, Routine, Wheezing, Shortness of Breath, Bronchospa sm, Chest tightness ondansetron 2022-0 Yes 4mg 4 mg, Slow Univers (ZOFRAN 11-13 IV Push, ity of (PF)) 09:01: Q6HPRN, [place] injection 4 16 Starting Medi sal mg on Sun11/13/22 at 0401, Until Discontinu ed, Routine, Nausea and Vomiting (N/V) acetaminoph 2022-0 Yes 650mg 650 mg, Un von en 11-13 Oral, ity of (TYLENOL) 09:01: Q6HPRN, [place] tablet 650 05 Starting Medic al mg on Sun11/13/22 at 0401, Until Discontinu ed, Routine, Pain (scale 1-3) guaiFENesin 2023-0 Yes 200mg 200 mg, Un von 100 mg/5 mL 11-13 Oral, ity of solution 08:59: Q4HPRN, [place] 200 mg 05 Starting Medical on Sun11/13/22 at 0359, Until Discontinu ed, Routine, Cough ipratropium 3-0 2023- No 3mL 3 mL, Univ ers -albuteroL 11-13-17 Inhalation it y of (DUONEB) 07:30: 06:48 , ONCE [place] 0.5 mg-3 00 :00 NOW, 1 Medical mg(2.5 mg dose, On Branch base)/3 mL Mon nebulizer 11/13/22 at solution 3 0230, NAEEM mL ipratropium 2022- No 3mL 3 mL, Univ ers -albuteroL 11-13 Inhalation it y of (DUONEB) 07:30: 06:54 , ONCE [place] 0.5 mg-3 00 :00 NOW, 1 Medical mg(2.5 mg dose, On Branch base)/3 mL Mon nebulizer 11/13/22 at solution 3 0230, NAEEM mL methylpredn 2022- No 125mg 125 mg, U nivers isolone sod 11-13 Slow IV ity of succ 07:30: 06:39 Push, [place] (SOLU-MEDRO 00 :00 ONCE, 1 Medic al L) dose, On Branch injection Mon 125 mg 11/13/22 at 0230, STAT levoFLOXaci No 500mg 500 mg, U nivers n 11-13 Oral, ity of (LEVAQUIN) 06:30: 06:39 ONCE, 1 [place] tablet 500 00 :00 dose, On Medic al mg Mon Branch 11/13/22 at 0130, NAEEM
Re ason for Anti-Infec tive: Empiric Therapy for Suspected Infection< br>Empiric Therapy Site: Respirator y
Durat ion of therapy: 72 hours predniSONE 2022- Yes [id number] 40mg Take 2 Univers 20 mg 6-27 - tablets by ity of tablet 00:00: 04:59 mouth in [place] 00 :00 [facility] Medical morning [place] for 3 days. predniSONE 2022- Yes [id number] 40mg Take 2 Univers 20 mg 6-27 - tablets by ity of tablet 00:00: 04:59 mouth in [place] 00 :00 [facility] morning [place] for 3 days. predniSONE 2022- Yes [id number] 40mg Take 2 Univers 20 mg 6-27 - tablets by ity of tablet 00:00: 04:59 mouth in [place] 00 :00 [facility] morning [place] for 3 days. predniSONE 2022- Yes 40mg 40 mg, Univ ers (DELTASONE) 10-23 06-30 Oral, ity of tablet 40 14:00: 13:59 DAILY, 4 [place] mg 00 :00 doses, Medical First dose Branch on 10/23/22 at 0900, Last dose on [place] 10/26/22 at 0900, Routine ipratropium 2022-0 Yes 3mL 3 mL, Unive rs -albuteroL 25 Inhalation ity of (DUONEB) 23:00: , Q6H, [place] 0.5 mg-3 00 First dose Medic al mg(2.5 mg on [facility] base)/3 mL 10/22/22 at nebulizer 1800, solution 3 Until mL Discontinu ed, Routine enoxaparin 2022-0 Yes 40mg 40 mg, Unive rs (LOVENOX) 10-22 Subcutaneo ity of injection 22:00: [place], DAILY, [place] 40 mg 00 First dose Medical on [facility] 10/22/22 at 1700, Until Discontinu ed, Routine nicotine 2022-0 Yes 1{patch 1 Patch, Un von (NICODERM) 25 } Topical, ity o f 14 mg/24 hr 20:15: Administer [place] patch 1 00 over 24 Medical Patch Hours, Branch Q24H, First dose on [facility] 10/22/22 at 1515, Until Discontinu ed, Routine guaiFENesin 2022-0 Yes 200mg 200 mg, Un von 100 mg/5 mL 10-22 Oral, ity of solution 19:16: Q6HPRN, [place] 200 mg 07 Starting Medical on [facility] 10/22/22 at 1416, Until Discontinu ed, Routine, Cough ondansetron 2022-0 Yes 4mg 4 mg, Slow Univers (ZOFRAN 6-25 IV Push, ity of (PF)) 19:14: Q6HPRN, [place] injection 4 47 Starting Medi sal mg on [facility] 10/22/22 at 1414, Until Discontinu ed, Routine, Nausea and Vomiting (N/V) acetaminoph 2022-0 Yes 650mg 650 mg, Un von en 25 Oral, ity of (TYLENOL) 19:14: Q6HPRN, [place] tablet 650 36 Starting Medic al mg on [facility] 6/25/23 at 1414, Until Discontinu ed, Routine, Pain (scale 1-3), Temp > 38 C ipratropium 2022- No 3mL 3 mL, Univ ers -albuteroL -25 -25 Inhalation it y of (DUONEB) 17:00: 13:57 , QID, [place] 0.5 mg-3 00 :48 First dose Medic al mg(2.5 mg on Sun Branch base)/3 mL 10/22/22 at nebulizer 1200, solution 3 Until mL Discontinu ed, Routine ipratropium 2022- No 6mL 6 mL, Univ ers -albuteroL -25 06-25 Inhalation it y of (DUONEB) 14:45: 13:58 , ONCE, 1 [place] 0.5 mg-3 00 :00 dose, On Medical mg(2.5 mg Sun Branch base)/3 mL 10/22/22 at nebulizer 0945, NAEEM solution 6 mL methylpredn 2022- No 125mg 125 mg, U nivers isolone sod 10-2225 Intravenou i ty of succ 14:45: 13:49 s, ONCE, 1 [place] (SOLU-MEDRO 00 :00 dose, On Medi sal L) Sun Branch injection 10/22/22 at 125 mg 0945, 2 mL predniSONE 2022- Yes [id number] 40mg Take 2 Univers 20 mg 6-21 06-25 tablets by ity of tablet 00:00: 04:59 mouth in [place] 00 :00 the Medical morning Branch for 3 days. predniSONE 2022-0 2022- Yes [id number] 40mg Take 2 Univers 20 mg 6-21 06-25 tablets by ity of tablet 00:00: 04:59 mouth in [place] 00 :00 the Medical morning Branch for 3 days. predniSONE 2022-0 2022- Yes [id number] 40mg Take 2 Univers 20 mg 6-21 06-25 tablets by ity of tablet 00:00: 04:59 mouth in [place] 00 :00 the Medical morning Branch for 3 days. albuterol Yes [id number] 2.5mg Inhale 3 Univers 2.5 mg /3 6-20 mL every 2 ity of mL (0.083 00:00: (two) [place] %) 00 hours as Medical nebulizer needed for Bran ch solution Shortness of Breath or Wheezing. guaiFENesin 2023-0 Yes [id number] 200mg Take 10 mL Univers 100 mg/5 mL 6-20 by mouth ity of solution 00:00: every 4 [place] 00 (four) Medical hours as Branch needed for Cough. albuterol 2023-0 Yes [id number] 2.5mg Inhale 3 Univers 2.5 mg /3 6-20 mL every 2 ity of mL (0.083 00:00: (two) [place] %) 00 hours as Medical nebulizer needed for Bran ch solution Shortness of Breath or Wheezing. guaiFENesin 2023-0 Yes [id number] 200mg Take 10 mL Univers 100 mg/5 mL 6-20 by mouth ity of solution 00:00: every 4 [place] 00 (four) Medical hours as Branch needed for Cough. albuterol 2023-0 Yes [id number] 2.5mg Inhale 3 Univers 2.5 mg /3 6-20 mL every 2 ity of mL (0.083 00:00: (two) [place] %) 00 hours as Medical nebulizer needed for Bran ch solution Shortness of Breath or Wheezing. guaiFENesin 2023-0 Yes [id number] 200mg Take 10 mL Univers 100 mg/5 mL 6-20 by mouth ity of solution 00:00: every 4 [place] 00 (four) Medical hours as Branch needed for Cough. albuterol 3-0 Yes [id number] 2.5mg Inhale 3 Univers 2.5 mg /3 6-20 mL every 2 ity of mL (0.083 00:00: (two) [place] %) 00 hours as Medical nebulizer needed for Bran ch solution Shortness of Breath or Wheezing. guaiFENesin 3-0 Yes [id number] 200mg Take 10 mL Univers 100 mg/5 mL 6-20 by mouth ity of solution 00:00: every 4 [place] 00 (four) Medical hours as Branch needed for Cough. albuterol 2023-0 Yes [id number] 2.5mg Inhale 3 Univers 2.5 mg /3 6-20 mL every 2 ity of mL (0.083 00:00: (two) [place] %) 00 hours as Medical nebulizer needed for Bran ch solution Shortness of Breath or Wheezing. guaiFENesin 2023-0 Yes [id number] 200mg Take 10 mL Univers 100 mg/5 mL 6-20 by mouth ity of solution 00:00: every 4 [place] 00 (four) Medical hours as Branch needed for Cough. albuterol 2023-0 Yes [id number] 2.5mg Inhale 3 Univers 2.5 mg /3 6-20 mL every 2 ity of mL (0.083 00:00: (two) [place] %) 00 hours as Medical nebulizer needed for Bran ch solution Shortness of Breath or Wheezing. guaiFENesin 2023-0 Yes [id number] 200mg Take 10 mL Univers 100 mg/5 mL 6-20 by mouth ity of solution 00:00: every 4 [place] 00 (four) Medical hours as Branch needed for Cough. albuterol 2023-0 Yes [id number] 2.5mg Inhale 3 Univers 2.5 mg /3 6-20 mL every 2 ity of mL (0.083 00:00: (two) [place] %) 00 hours as Medical nebulizer needed for Bran ch solution Shortness of Breath or Wheezing. guaiFENesin 3-0 Yes [id number] 200mg Take 10 mL Univers 100 mg/5 mL 6-20 by mouth ity of solution 00:00: every 4 [place] 00 (four) Medical hours as Branch needed for Cough. albuterol 2023-0 Yes [id number] 2.5mg Inhale 3 Univers 2.5 mg /3 6-20 mL every 2 ity of mL (0.083 00:00: (two) [place] %) 00 hours as Medical nebulizer needed for Bran ch solution Shortness of Breath or Wheezing. guaiFENesin 2023-0 Yes [id number] 200mg Take 10 mL Univers 100 mg/5 mL 6-20 by mouth ity of solution 00:00: every 4 [place] 00 (four) Medical hours as Branch needed for Cough. albuterol 2023-0 Yes [id number] 2.5mg Inhale 3 Univers 2.5 mg /3 6-20 mL every 2 ity of mL (0.083 00:00: (two) [place] %) 00 hours as Medical nebulizer needed for Bran ch solution Shortness of Breath or Wheezing. guaiFENesin 2023-0 Yes [id number] 200mg Take 10 mL Univers 100 mg/5 mL 6-20 by mouth ity of solution 00:00: every 4 [place] 00 (four) Medical hours as Branch needed for Cough. albuterol 3-0 Yes [id number] 2.5mg Inhale 3 Univers 2.5 mg /3 6-20 mL every 2 ity of mL (0.083 00:00: (two) [place] %) 00 hours as Medical nebulizer needed for Bran ch solution Shortness of Breath or Wheezing. guaiFENesin 3-0 Yes [id number] 200mg Take 10 mL Univers 100 mg/5 mL 6-20 by mouth ity of solution 00:00: every 4 [place] 00 (four) Medical hours as Branch needed for Cough. albuterol 2022-0 Yes [id number] 2.5mg Inhale 3 Univers 2.5 mg /3 6-20 mL every 2 ity of mL (0.083 00:00: (two) [place] %) 00 hours as Medical nebulizer needed for Bran ch solution Shortness of Breath or Wheezing. guaiFENesin 2022-0 Yes [id number] 200mg Take 10 mL Univers 100 mg/5 mL 6-20 by mouth ity of solution 00:00: every 4 [place] 00 (four) Medical hours as Branch needed for Cough. albuterol 2022-0 Yes [id number] 2.5mg Inhale 3 Univers 2.5 mg /3 6-20 mL every 2 ity of mL (0.083 00:00: (two) [place] %) 00 hours as Medical nebulizer needed for Bran ch solution Shortness of Breath or Wheezing. guaiFENesin 2022-0 Yes [id number] 200mg Take 10 mL Univers 100 mg/5 mL 6-20 by mouth ity of solution 00:00: every 4 [place] 00 (four) Medical hours as Branch needed for Cough. nicotine 14 2022- Yes [id number] 1{patch Apply 1 Univers mg/24 hr 6-20 07-21 } Patch to ity of patch 00:00: 04:59 area(s) [place] 00 :00 every 24 Medical (twenty-fo Branch ur) hours for 30 days. nicotine 14 0 2022- Yes [id number] 1{patch Apply 1 Univers mg/24 hr 6-20 07-21 } Patch to ity of patch 00:00: 04:59 area(s) [place] 00 :00 every 24 Medical (twenty-fo Branch ur) hours for 30 days. nicotine 2022- Yes [id number] 1{patch Apply 1 Univers mg/24 hr 6-20 07-21 } Patch to ity of patch 00:00: 04:59 area(s) [place] 00 :00 every 24 Medical (twenty-fo Branch ur) hours for 30 days. nicotine 2022- Yes [id number] 1{patch Apply 1 Univers mg/24 hr 6-20 07-21 } Patch to ity of patch 00:00: 04:59 area(s) [place] 00 :00 every 24 Medical (twenty-fo Branch ur) hours for 30 days. nicotine 2022- Yes [id number] 1{patch Apply 1 Univers mg/24 hr 6-20 07-21 } Patch to ity of patch 00:00: 04:59 area(s) [place] 00 :00 every 24 Medical (twenty-fo Branch ur) hours for 30 days. nicotine 2022- Yes [id number] 1{patch Apply 1 [facility] mg/24 hr 6-20 07-21 } Patch to ity of patch 00:00: 04:59 area(s) [place] 00 :00 every 24 Medical (twenty-fo Branch ur) hours for 30 days. nicotine 2022- Yes [id number] 1{patch Apply 1 [facility] mg/24 hr 6-20 07-21 } Patch to ity of patch 00:00: 04:59 area(s) [place] 00 :00 every 24 Medical (twenty-fo Branch ur) hours for 30 days. nicotine 2022- Yes [id number] 1{patch Apply 1 [facility] mg/24 hr 6-20 07-21 } Patch to ity of patch 00:00: 04:59 area(s) [place] 00 :00 every 24 Medical (twenty-fo Branch ur) hours for 30 days. nicotine 2022- Yes [id number] 1{patch Apply 1 [facility] mg/24 hr 6-20 07-21 } Patch to ity of patch 00:00: 04:59 area(s) [place] 00 :00 every 24 Medical (twenty-fo Branch ur) hours for 30 days. nicotine 2022- Yes [id number] 1{patch Apply 1 [facility] mg/24 hr 6-20 07-21 } Patch to ity of patch 00:00: 04:59 area(s) [place] 00 :00 every 24 Medical (twenty-fo Branch ur) hours for 30 days. nicotine 14 2022-0 202- Yes [id number] 1{patch Apply 1 [facility] mg/24 hr 10-17 07-21 } Patch to ity of patch 00:00: 04:59 area(s) [place] 00 :00 every 24 Medical (twenty-fo Branch ur) hours for 30 days. predniSONE 2022-0 2022- Yes 40mg 40 mg, Univ ers (DELTASONE) 10-16 06-24 Oral, ity of tablet 40 14:00: 13:59 DAILY, 5 [place] as mg 00 :00 doses, Medical First dose Branch on Sun10/16/22 at 0900, Last dose on Sun10/20/22 at 0900, Routine enoxaparin 0 Yes 40mg 40 mg, Unive rs (LOVENOX) 18 Subcutaneo ity of injection 22:00: [place], [place]ILY, [place] 40 mg 00 First dose Medical on [facility] 10/15/22 at 1700, Until Discontinu ed, Routine nicotine 2022-0 Yes 1{patch 1 Patch, Un von (NICODERM) 18 } Topical, ity o f 14 mg/24 hr 17:30: Administer [place] patch 1 00 over 24 Medical Patch Hours, Branch Q24H, First dose on [facility] 10/15/22 at 1230, Until Discontinu ed, Routine ipratropium 0 Yes 3mL 3 mL, Unive rs -albuteroL 18 Inhalation ity of (DUONEB) 17:00: , Q4H, [place] 0.5 mg-3 00 First dose Medic al mg(2.5 mg on [facility] base)/3 mL 10/15/22 at nebulizer 1200, solution 3 Until mL Discontinu ed, Routine albuterol 0 Yes 2.5mg 2.5 mg, Univ ers (PROVENTIL) 618 Inhalation it y of 2.5 mg /3 16:26: , Q2HPRN, [place] as mL (0.083 27 Starting Medica l %) on [facility] nebulizer 10/15/22 at solution 1126, 2.5 mg Until Discontinu ed, Routine, Shortness of Breath, Wheezing azithromyci 2022-0 2022- No 500mg 500 mg, IV Univers n 10-15 Piggyback, ity of (ZITHROMAX) 15:15: 17:17 Q24H ABX, [place] 500 mg in 00 :00 3 doses, Medica l NaCl 0.9% First dose Bran ch (NS) 250 mL on [facility] VIAL-MATE 10/15/22 at IV 1015, Last piggyback dose on Sun10/17/22 at 1015, Administer over 60 Minutes, 250 mL
Reas on for Anti-Infec tive: Empiric Therapy for Suspected Infection< br>Empiric Therapy Site: Respirator y
Durat ion of therapy: 72 hours ipratropium 2022-0 2022- No 3mL 3 mL, Univ ers -albuteroL 10-15 Inhalation it y of (DUONEB) 14:30: 13:42 , ONCE [place] 0.5 mg-3 00 :00 NOW, 1 Medical mg(2.5 mg dose, On Branch base)/3 mL Sun nebulizer 10/15/22 at solution 3 0930, NAEEM mL guaiFENesin 0 Yes 200mg 200 mg, Un von 100 mg/5 mL 10-15 Oral, ity of solution 14:03: Q4HPRN, [place] 200 mg 20 Starting Medical on [facility] 10/15/22 at 0903, Until Discontinu ed, Routine, Cough acetaminoph 2022-0 Yes 650mg 650 mg, Un von en 10-15 Oral, ity of (TYLENOL) 14:02: Q6HPRN, [place] tablet 650 39 Starting Medic al mg on [facility] 10/15/22 at 0902, Until Discontinu ed, Routine, Pain (scale 1-3) ipratropium 2022-0 2022- No 3mL 3 mL, Univ ers -albuteroL 10-15 Inhalation it y of (DUONEB) 13:30: 12:42 , ONCE [place] 0.5 mg-3 00 :00 NOW, 1 Medical mg(2.5 mg dose, On Branch base)/3 mL Sun nebulizer 10/15/22 at solution 3 0830, NAEEM mL levoFLOXaci 2022-0 2023- No 500mg 500 mg, U nivers n 10-15 Oral, ity of (LEVAQUIN) 12:30: 12:28 ONCE, 1 [place] tablet 500 00 :00 dose, On Medic al mg Sun Branch 10/15/22 at 0730, NAEEM
Re ason for Anti-Infec tive: Empiric Therapy for Suspected Infection< br>Empiric Therapy Site: Respirator y
Durat ion of therapy: 72 hours ipratropium 2022- No 6mL 6 mL, Univ ers -albuteroL 10-15 Inhalation it y of (DUONEB) 12:15: 11:30 , ONCE, 1 [place] 0.5 mg-3 00 :00 dose, On Medical mg(2.5 mg [facility] Branch base)/3 mL 10/15/22 at nebulizer 0715, solution 6 Routine mL methylPREDN 2022- No 125mg 125 mg, U nivers ISolone sod 10-15 Intravenou i ty of succ 11:30: 11:30 s, ONCE, 1 [place] (SOLU-MEDRO 00 :00 dose, On Medi sal L (PF)) Sun Branch injection 10/15/22 at 125 mg 0630, NAEEM ondansetron No 4mg 4 mg, Slow Univers (ZOFRAN 10-02 IV Push, ity of (PF)) 13:30: 13:23 ONCE, 1 [place] injection 4 00 :00 dose, On Medi sal mg 10/02/22 Branch at 0830, NAEEM iopamidol 2022- No [id number] 70mL 70 mL, U nivers (ISOVUE 10-02 Intravenou ity o f 370-500 mL) 13:29: 13:30 s, ONCE, 1 [place] injection 00 :00 dose, On Medica l 70 mL [facility] 10/02/22 Branch at 0845, Routine maalox:diph 2022- No 15mL 15 mL, Uni vers enhydrAMINE 10-02 Oral, ity of :lidocaine 13:15: 13:16 ONCE, 1 [place] 2 % viscous 00 :00 dose, On Medi sal 1:1:1 10/02/22 Branch (FIRST-MOUT at 0815, [facility]) Routine oral suspension 15 mL sucralfate Yes [id number] 1g Take 1 U nivers 1 gram 6-05 tablet by ity of tablet 00:00: mouth [place] 00 before Medical meals and Branch at bedtime. dicyclomine Yes [id number] 10mg Take 1 Univers (BENTYL) 10 6-05 capsule by it y of mg capsule 00:00: mouth [place] 00 every 8 Medical (eight) Branch hours as needed for Abdominal pain. ondansetron Yes [id number] 4mg Take 1 Univers 4 mg 6-05 tablet by ity of disintegrat 00:00: mouth [place] ing tablet 00 every 8 Medica l (eight) Branch hours as needed for Nausea and Vomiting (N/V). omeprazole 2022- Yes [id number] 20mg Take 1 Univers 20 mg 6-05 07-06 capsule by ity of capsule 00:00: 04:59 mouth in [place] 00 :00 the Medical morning Branch for 30 days. sucralfate 2022- No [id number] 1g Take 1 Univers 1 gram 6-05 06-18 tablet by ity of tablet 00:00: 00:00 mouth [place] 00 :00 before Medical meals and Branch at bedtime. dicyclomine 2022- No [id number] 10mg Take 1 Univers (BENTYL) 10 6-05 06-18 capsule by i ty of mg capsule 00:00: 00:00 mouth [place] 00 :00 every 8 Medical (eight) Branch hours as needed for Abdominal pain. ondansetron 2022- No [id number] 4mg Take 1 [facility] 4 mg 6-05 06-18 tablet by ity of disintegrat 00:00: 00:00 [place] tablet 00 :00 every 8 Medica l (eight) Branch hours as needed for Nausea and Vomiting (N/V). omeprazole 2022- No [id number] 20mg Take 1 Univers 20 mg 6-05 06-18 capsule by ity of capsule 00:00: 00:00 mouth in [place] 00 :00 the Medical morning Branch for 30 days. predniSONE 2022- Yes [id number] 40mg Take 2 Univers 20 mg 09-19-28 tablets by ity of tablet 00:00: 04:59 mouth in [place] 00 :00 the [facility] Branch for 4 days. predniSONE 2022- Yes [id number] 40mg Take 2 Univers 20 mg -19 09-28 tablets by ity of tablet 00:00: 04:59 mouth in [place] 00 :00 the [facility] for 4 days. predniSONE Yes 40mg 40 mg, Unive rs (DELTASONE) 09-18 Oral, ity of tablet 40 14:00: DAILY, [place] mg 00 First dose Medical (after Branch last modificati on) on Sun09/18/22 at 0900, Until Discontinu ed, Routine azithromyci 2022- Yes 500mg 500 mg, IV Univers n 09-18 Piggyback, ity of (ZITHROMAX) 08:30: 08:29 Q24H [...] ity of 1,000 mg in 08:00: 07:59 Piggyback, [place] NaCl 0.9% 00 :00 Q24H ABX, Medic al (NS) 100 mL 5 doses, Bran ch MINI-BAG First dose (after last reorder) on Sun09/18/22 at 0300, Last dose on Sun09/22/22 at 0300, Administer over 30 Minutes, 100 mL
Reas on for Anti-Infec tive: Empiric Therapy for Suspected Infection< br>Empiric Therapy Site: Respirator y
Durat ion of therapy: 72 hours albuterol 2022- Yes [id number] 2{puff} Inhale 2 [facility] 90 5-22 06-22 Puffs ity of mcg/actuati 00:00: 04:59 every 4 [place] on inhaler 00 :00 (four) Medical hours as Branch needed for Wheezing or Shortness of Breath for up to 30 days. albuterol 2022- Yes [id number] 2{puff} Inhale 2 Univers 90 5-22 06-22 Puffs ity of mcg/actuati 00:00: 04:59 every 4 [place] on inhaler 00 :00 (four) Medical hours as Branch needed for Wheezing or Shortness of Breath for up to 30 days. albuterol 2022- Yes [id number] 2{puff} Inhale 2 [facility] 90 5-22 06-22 Puffs ity of mcg/actuati 00:00: 04:59 every 4 [place] on inhaler 00 :00 (four) Medical hours as Branch needed for Wheezing or Shortness of Breath for up to 30 days. albuterol 2022- No [id number] 2{puff} Inhale 2 Univers 90 5-22 06-20 Puffs ity of mcg/actuati 00:00: 00:00 every 4 [place] on inhaler 00 :00 (four) Medical hours as Branch needed for Wheezing or Shortness of Breath for up to 30 days. amoxicillin 2022- Yes [id number] 1{tbl} Take 1 Univers -clavulanat 5- 05-29 tablet by it y of e 00:00: 04:59 mouth in [place] (AUGMENTIN) 00 :00 the Medical 875-125 mg morning Branch per tablet and 1 tablet in the evening. Do all this for 6 days. amoxicillin 2022- Yes [id number] 1{tbl} Take 1 Univers -clavulanat 5-22 05-29 tablet by it y of e 00:00: 04:59 mouth in [place] (AUGMENTIN) 00 :00 the Medical 875-125 mg morning Branch per tablet and 1 tablet in the evening. Do all this for 6 days. azithromyci 2022- Yes [id number] 250mg Take 1 Univers n 250 mg 5-18 09-27 tablet by ity o f tablet 00:00: 04:59 mouth in [place] 00 :00 [facility] for 4 days. azithromyci 2023-0 2023- Yes [id number] 250mg Take 1 Univers n 250 mg 09-18 tablet by ity o f tablet 00:00: 04:59 mouth in [place] 00 :00 [facility] for 4 days. methylpredn 3-0 2022- No 40mg 40 mg, Uni vers isolone sod 09-17- Intravenou i ty of succ 17:00: 18:29 s, Q6H, [place] (SOLU-MEDRO 00 :15 First dose Me dical L) (after Branch injection last 40 mg modificati on) on [facility] 09/17/22 at 1200, Until Discontinu ed, Routine enoxaparin 3-0 Yes 40mg 40 mg, Unive rs (LOVENOX) - Subcutaneo ity of injection 14:00: us, DAILY, [place] 40 mg 00 First dose Medical on [facility] 09/17/22 at 0900, Until Discontinu ed, Routine Fluticasone 2022-0 Yes 1{puff} 1 Puff, Univers -Salmeterol 09-17 Inhalation it y of (ADVAIR) 13:00: , Q12H, [place] 100-50 00 First dose Medical mcg/dose on [facility] inhalation 09/17/22 at disk 1 Puff 0800, Until Discontinu ed, Routine ipratropium 3-0 Yes 3mL 3 mL, Unive rs -albuteroL 09-17 Inhalation ity of (DUONEB) 13:00: , QID, [place] 0.5 mg-3 00 First dose Medic al mg(2.5 mg on [facility] base)/3 mL 09/17/22 at nebulizer 0800, solution 3 Until mL Discontinu ed, Routine guaiFENesin 2023-0 Yes 400mg 400 mg, Un von (FENESIN 5-21 Oral, ity of IR) tablet 11:52: Q4HPRN, [place] mg 07 Starting Medical on [facility] 09/17/22 at 0652, Until Discontinu ed, Routine, Congestion /Allergies , Cough ipratropium 2023-0 Yes .5mg 0.5 mg, Uni vers (ATROVENT) 5- Inhalation ity of 0.02 % 11:49: , Q4HPRN, [place] nebulizer 39 Starting Medica l solution on [facility] 0.5 mg 09/17/22 at 0649, Until Discontinu ed, Routine, Wheezing, Shortness of Breath methylpredn 2022-0 2022- No 125mg 125 mg, U nivers isolone sod 09-17 Intravenou i ty of succ 11:00: 11:50 s, Q6H, [place] (SOLU-MEDRO 00 :26 First dose Me dical L) on [facility] Branch injection 09/17/22 at 125 mg 0600, Until Discontinu ed, Routine cefTRIAXone 2022- No 1000mg 1,000 mg, Univers (ROCEPHIN) 09-17 IV ity of 1,000 mg in 09:00: 08:40 Piggyback, [place] NaCl 0.9% 00 :00 ONCE, 1 Medical (NS) 100 mL dose, On Bran ch MINI-BAG [facility] 09/17/22 at 0400, Administer over 30 Minutes, 100 mL
Reas on for Anti-Infec tive: Empiric Therapy for Suspected Infection< br>Empiric Therapy Site: Respirator y
Durat ion of therapy: 72 hours azithromyci 0 2022- No 500mg 500 mg, IV Univers n 09-17 Piggyback, ity of (ZITHROMAX) 08:45: 09:44 ONCE, 1 [place] 500 mg in 00 :00 dose, On Medica l NaCl 0.9% [facility] (NS) 250 mL 09/17/22 at VIAL-MATE 0345, IV Administer piggyback over 60 Minutes, 250 mL
R lenard for Anti-Infec tive: Empiric Therapy for Suspected Infection< br>Empiric Therapy Site: Respirator y
Durat ion of therapy: 72 hours ondansetron 2022-0 Yes 4mg 4 mg, Slow Univers (ZOFRAN 09-17 IV Push, ity of (PF)) 08:39: Q6HPRN, [place] injection 4 18 Starting Medi sal mg on [facility] Branch 09/17/22 at 0339, Until Discontinu ed, Routine, Nausea and Vomiting (N/V) acetaminoph 2023-0 Yes 650mg 650 mg, Un von en 09-17 Oral, ity of (TYLENOL) 08:39: Q6HPRN, [place] tablet 650 09 Starting Medic al mg on Sun Branch 09/17/22 at 0339, Until Discontinu ed, Routine, Pain (scale 1-3) ipratropium 2022- No 3mL 3 mL, Univ ers -albuteroL 09-17 Inhalation it y of (DUONEB) 08:30: 07:24 , ONCE, 1 [place] 0.5 mg-3 00 :00 dose, On Medical mg(2.5 mg [place] Branch base)/3 mL 09/17/22 at nebulizer 0330, solution 3 Routine mL magnesium 2022- No 2g 2 g, IV Univ ers sulfate in 09-17 Piggyback, it y of water 2 07:00: 06:41 Administer [place] gram/50 mL 00 :00 over 60 Medica l (4 %) Minutes, Branch infusion 2 ONCE, 1 g dose, On 09/17/22 at 0200, Routine ipratropium 2022-0 Yes [id number] USE 1 VIAL Univers -albuteroL 5-16 IN ity of 0.5 mg-3 00:00: NEBULIZER [place] mg(2.5 mg 00 EVERY 4 Medical base)/3 mL HOURS Branc h nebulizer NEEDED FOR solution WHEEZING OR SHORTNESS OF BREATH ipratropium 2022-0 Yes [id number] USE 1 VIAL Univers -albuteroL 5-16 IN ity of 0.5 mg-3 00:00: NEBULIZER [place] mg(2.5 mg 00 EVERY 4 Medical base)/3 mL HOURS Branc h nebulizer NEEDED FOR solution WHEEZING OR SHORTNESS OF BREATH ipratropium 2022-0 Yes [id number] USE 1 VIAL Univers -albuteroL 5-16 IN ity of 0.5 mg-3 00:00: NEBULIZER [place] mg(2.5 mg 00 EVERY 4 Medical base)/3 mL HOURS Branc h nebulizer NEEDED FOR solution WHEEZING OR SHORTNESS OF BREATH ipratropium 2022-0 Yes [id number] USE 1 VIAL Univers -albuteroL 5-16 IN [...] OR SHORTNESS OF BREATH ipratropium 2022-0 Yes USE 1 VIAL Univers -albuteroL 5-16 IN ity of 0.5 mg-3 00:00: NEBULIZER [place] mg(2.5 mg 00 EVERY 4 Medical base)/3 mL HOURS Branc h nebulizer NEEDED FOR solution WHEEZING OR SHORTNESS OF BREATH ipratropium 2022-0 Yes USE 1 VIAL Univers -albuteroL 5-16 IN ity of 0.5 mg-3 00:00: NEBULIZER [place] mg(2.5 mg 00 EVERY 4 Medical base)/3 mL HOURS Branc h nebulizer NEEDED FOR solution WHEEZING OR SHORTNESS OF BREATH ipratropium 2022-0 Yes USE 1 VIAL Univers -albuteroL 5-16 IN ity of 0.5 mg-3 00:00: NEBULIZER [place] mg(2.5 mg 00 EVERY 4 Medical base)/3 mL HOURS Branc h nebulizer NEEDED FOR solution WHEEZING OR SHORTNESS OF BREATH ipratropium 2022-0 Yes USE 1 VIAL Univers -albuteroL 5-16 IN ity of 0.5 mg-3 00:00: NEBULIZER [place] mg(2.5 mg 00 EVERY 4 Medical base)/3 mL HOURS Branc h nebulizer NEEDED FOR solution WHEEZING OR SHORTNESS OF BREATH ipratropium 2022-0 Yes USE 1 VIAL Univers -albuteroL 5-16 IN ity of 0.5 mg-3 00:00: NEBULIZER [place] mg(2.5 mg 00 EVERY 4 Medical base)/3 mL HOURS Branc h nebulizer NEEDED FOR solution WHEEZING OR SHORTNESS OF BREATH metoclopram 2022-0 2022- No 10mg 10 mg, Uni vers linda HCl 08-21 Slow IV ity of (REGLAN) 01:15: 00:35 Push, [place] injection 00 :00 ONCE, 1 Medical 10 mg dose, On Branch 08/20/22 at 2015, NAEEM levalbutero 2022- No 1.25mg 1.25 mg, Univers l (XOPENEX) 08-20 Inhalation i ty of nebulizer 23:45: 22:56 , ONCE, 1 [place] solution 00 :00 dose, On Medical 1.25 mg [facility] Branch 08/20/22 at 1845, Routine ipratropium 2022- No .5mg 0.5 mg, Un von (ATROVENT) 08-20 Inhalation it y of 0.02 % 23:45: 22:56 , ONCE, 1 [place] nebulizer 00 :00 dose, On Medica l solution [facility] Branch 0.5 mg 08/20/22 at 1845, Routine ondansetron 2022- No 4mg 4 mg, Slow Univers (ZOFRAN 08-20 IV Push, ity of (PF)) 23:30: 23:30 ONCE, 1 [place] injection 4 00 :00 dose, On Medi sal mg [facility] Branch 08/20/22 at 1830, NAEEM morpHINE (2 2022- No 2mg 2 mg, Slow Univers mg/mL) 08-20 IV Push, ity of injection 2 23:30: 23:30 ONCE, 1 [place] mg 00 :00 dose, On Medical [facility] Branch 08/20/22 at 1830, STAT iopamidol 2022- No [id number] 100mL 100 mL, Univers (ISOVUE 08-20 Intravenou ity o f 370-500 mL) 23:11: 23:14 s, ONCE, 1 [place] injection 00 :00 dose, On Medica l 100 mL [facility] Branch 08/20/22 at 1830, Routine maalox:diph 2022- No 15mL 15 mL, Uni vers enhydrAMINE 08-20 Oral, ity of :lidocaine 23:00: 22:51 ONCE, 1 [place] 2 % viscous 00 :00 dose, On Medi sal 1:1:1 [place] Branch ([facility] 08/20/22 at [facility]) 1800, oral Routine suspension 15 mL famotidine 2022- No 20mg 20 mg, Univ ers (PEPCID 08-20 Slow IV ity of (PF)) 23:00: 22:51 Push, [place] injection 00 :00 ONCE, 1 Medical 20 mg dose, On Branch 08/20/22 at 1800, NAEEM metoclopram 2023-0 Yes [id number] 10mg Take 1 Univers linda HCl 10 4-23 tablet by ity of mg tablet 00:00: mouth [place] 00 every 6 Medical (six) Branch hours. metoclopram 2023-0 Yes [id number] 10mg Take 1 Univers linda HCl 10 4-23 tablet by ity of mg tablet 00:00: mouth [place] 00 every 6 Medical (six) Branch hours. metoclopram 2023-0 Yes [id number] 10mg Take 1 Univers linda HCl 10 4-23 tablet by ity of mg tablet 00:00: mouth [place] 00 every 6 Medical (six) Branch hours. metoclopram 2023-0 Yes [id number] 10mg Take 1 Univers linda HCl 10 4-23 tablet by ity of mg tablet 00:00: mouth [place] 00 every 6 Medical (six) Branch hours. metoclopram 2023-0 Yes [id number] 10mg Take 1 Univers linda HCl 10 4-23 tablet by ity of mg tablet 00:00: mouth [place] 00 every 6 Medical (six) Branch hours. metoclopram 2023-0 2023- No [id number] 10mg Take 1 Univers linda HCl 10 4-23 06-18 tablet by ity of mg tablet 00:00: 00:00 mouth [place] 00 :00 every 6 Medical (six) Branch hours. ipratropium 2023-0 Yes [id number] .5mg Inhale 2.5 Univers 0.02 % 3-29 mL every 6 ity of nebulizer 00:00: (six) [place] solution 00 hours as Medical needed for Branch Wheezing or Shortness of Breath. albuterol 2023-0 Yes [id number] 2{puff} Inhale 2 Univers 90 3-29 Puffs ity of mcg/actuati 00:00: every 6 [place] on inhaler 00 (six) Medical hours as Branch needed for Wheezing or Shortness of Breath. ipratropium 2023-0 Yes [id number] .5mg Inhale 2.5 Univers 0.02 % 3-29 mL every 6 ity of nebulizer 00:00: (six) [place] solution 00 hours as Medical needed for Branch Wheezing or Shortness of Breath. albuterol 2022-0 Yes [id number] 2{puff} Inhale 2 Univers 90 3-29 Puffs ity of mcg/actuati 00:00: every 6 [place] on inhaler 00 (six) Medical hours as Branch needed for Wheezing or Shortness of Breath. ipratropium 2022-0 Yes [id number] .5mg Inhale 2.5 Univers 0.02 % 3-29 mL every 6 ity of nebulizer 00:00: (six) [place] solution 00 hours as Medical needed for Branch Wheezing or Shortness of Breath. ipratropium 2022-0 Yes [id number] .5mg Inhale 2.5 Univers 0.02 % 3-29 mL every 6 ity of nebulizer 00:00: (six) [place] solution 00 hours as Medical needed for Branch Wheezing or Shortness of Breath. ipratropium 2022-0 Yes [id number] .5mg Inhale 2.5 Univers 0.02 % 3-29 mL every 6 ity of nebulizer 00:00: (six) [place] solution 00 hours as Medical needed for Branch Wheezing or Shortness of Breath. ipratropium 2022-0 Yes [id number] .5mg Inhale 2.5 Univers 0.02 % 3-29 mL every 6 ity of nebulizer 00:00: (six) [place] solution 00 hours as Medical needed for Branch Wheezing or Shortness of Breath. ipratropium 2022-0 2023- No [id number] .5mg Inhale 2.5 Univers 0.02 % 3-29 06-20 mL every 6 ity of nebulizer 00:00: 00:00 (six) [place] solution 00 :00 hours as Medical needed for Branch Wheezing or Shortness of Breath. albuterol 2022-0 2023- No [id number] 2{puff} Inhale 2 Univers 90 3-29 05-16 Puffs ity of mcg/actuati 00:00: 00:00 every 6 [place] on inhaler 00 :00 (six) Medical hours as Branch needed for Wheezing or Shortness of Breath. ipratropium 2022-0 Yes [id number] USE 3 ML Univers -albuteroL 3-03 IN ity of 0.5 mg-3 00:00: NEBULIZER [place] mg(2.5 mg 00 EVERY 4 Medical base)/3 mL HOURS Branc h nebulizer NEEDED FOR solution WHEEZING OR SHORTNESS OF BREATH ipratropium 3-0 Yes [id number] USE 3 ML Univers -albuteroL 3-03 IN ity of 0.5 mg-3 00:00: NEBULIZER [place] mg(2.5 mg 00 EVERY 4 Medical base)/3 mL HOURS Branc h nebulizer NEEDED FOR solution WHEEZING OR SHORTNESS OF BREATH ipratropium 3-0 Yes [id number] USE 3 ML Univers -albuteroL 3-03 IN ity of 0.5 mg-3 00:00: NEBULIZER [place] mg(2.5 mg 00 EVERY 4 Medical base)/3 mL HOURS Branc h nebulizer NEEDED FOR solution WHEEZING OR SHORTNESS OF BREATH ipratropium 3-0 Yes [id number] USE 3 ML Univers -albuteroL 3-03 IN ity of 0.5 mg-3 00:00: NEBULIZER [place] mg(2.5 mg 00 EVERY 4 Medical base)/3 mL HOURS Branc h nebulizer NEEDED FOR solution WHEEZING OR SHORTNESS OF BREATH ipratropium 3-0 2022- No [id number] USE 3 ML Univers -albuteroL 3-03 05-16 [...] 0330, NAEEM 125 mg predniSONE 2022-0 Yes [id number] 50mg Take 1 Univers 50 mg 1-30 tablet by ity of tablet 00:00: mouth in [place] [address] the Medical morning. Branch predniSONE 2022-0 Yes [id number] 50mg Take 1 Univers 50 mg 1-30 tablet by ity of tablet 00:00: mouth in [place] [address] the Medical morning. Branch predniSONE 2022-0 Yes [id number] 50mg Take 1 Univers 50 mg 1-30 tablet by ity of tablet 00:00: mouth in [place] 00 the Medical morning. Branch predniSONE 3-0 Yes [id number] 50mg Take 1 Univers 50 mg 1-30 tablet by ity of tablet 00:00: mouth in [place] 00 the Medical morning. Branch predniSONE 3-0 Yes [id number] 50mg Take 1 Univers 50 mg 1-30 tablet by ity of tablet 00:00: mouth in [place] 00 the Medical morning. Branch predniSONE 3-0 Yes [id number] 50mg Take 1 Univers 50 mg 1-30 tablet by ity of tablet 00:00: mouth in [place] 00 the Medical morning. Branch predniSONE 2023-0 Yes [id number] 50mg Take 1 Univers 50 mg 1-30 tablet by ity of tablet 00:00: mouth in [place] [address] the Medical morning. Branch predniSONE 2023-0 Yes [id number] 50mg Take 1 Univers 50 mg 1-30 tablet by ity of tablet 00:00: mouth in [place] [address] the Medical morning. Branch predniSONE 3-0 Yes [id number] 50mg Take 1 Univers 50 mg 1-30 tablet by ity of tablet 00:00: mouth in [place] 00 the Medical morning. Branch predniSONE 3-0 Yes [id number] 50mg Take 1 Univers 50 mg 1-30 tablet by ity of tablet 00:00: mouth in [place] 00 the Medical morning. Branch predniSONE 3-0 2023- No [id number] 50mg Take 1 Univers 50 mg 1-30 06-18 tablet by ity of tablet 00:00: 00:00 mouth in [place] 00 :00 the Medical morning. Branch Fluticasone 3-0 Yes [id number] 1{puff} Inhale 1 Univers -Salmeterol 1-24 Puff every it y of (ADVAIR 00:00: 12 [place] DISKUS) 00 (twelve) Medical 100-50 hours. Branch mcg/dose inhalation disk ipratropium 2022-0 Yes [id number] USE 3 ML Univers -albuteroL 1-24 IN ity of 0.5 mg-3 00:00: NEBULIZER [place] mg(2.5 mg 00 EVERY 4 Medical base)/3 mL HOURS Branc h nebulizer NEEDED FOR solution WHEEZING OR SHORTNESS OF BREATH Fluticasone 3-0 Yes [id number] 1{puff} Inhale 1 Univers -Salmeterol 1-24 Puff every it y of (ADVAIR 00:00: 12 [place] DISKUS) 00 (twelve) Medical 100-50 hours. Branch mcg/dose inhalation disk ipratropium 3-0 Yes [id number] USE 3 ML [facility] -albuteroL 1-24 IN ity of 0.5 mg-3 00:00: NEBULIZER [place] mg(2.5 mg 00 EVERY 4 Medical base)/3 mL HOURS Branc h nebulizer NEEDED FOR solution WHEEZING OR SHORTNESS OF BREATH Fluticasone 3-0 Yes [id number] 1{puff} Inhale 1 Univers -Salmeterol 1-24 Puff every it y of (ADVAIR 00:00: 12 [place] DISKUS) 00 (twelve) Medical 100-50 hours. Branch mcg/dose inhalation disk ipratropium 3-0 Yes [id number] USE 3 ML [facility] -albuteroL 1-24 IN ity of 0.5 mg-3 00:00: [place]ULIZ[place] mg(2.5 mg 00 EVERY 4 [facility])/3 mL HOURS [facility] nebulizer NEEDED FOR solution WHEEZING OR SHORTNESS OF BREATH Fluticasone 2023-0 Yes [id number] 1{puff} Inhale 1 [facility] -Salmeterol 1-24 Puff every it y of (ADVAIR 00:00: 12 [place] DISKUS) 00 (twelve) Medical 100-50 hours. Branch mcg/dose inhalation disk ipratropium 3-0 Yes [id number] USE 3 ML [facility] -albuteroL 1-24 IN ity of 0.5 mg-3 00:00: [place]IZ[place] mg(2.5 mg 00 EVERY 4 [facility])/3 mL HOURS [facility] h nebulizer NEEDED FOR solution WHEEZING OR SHORTNESS OF BREATH Fluticasone 3-0 Yes [id number] 1{puff} Inhale 1 [facility] -Salmeterol 1-24 Puff every it y of (ADVAIR 00:00: 12 [place] DISKUS) 00 (twelve) Medical 100-50 hours. Branch mcg/dose inhalation disk Fluticasone 3-0 Yes [id number] 1{puff} Inhale 1 [facility] -Salmeterol 1-24 Puff every it y of (ADVAIR 00:00: 12 [place] DISKUS) 00 (twelve) Medical 100-50 hours. Branch mcg/dose inhalation disk Fluticasone 3-0 Yes [id number] 1{puff} Inhale 1 Univers -Salmeterol 1-24 Puff every it y of (ADVAIR 00:00: 12 [place] DISKUS) 00 (twelve) Medical 100-50 hours. Branch mcg/dose inhalation disk Fluticasone 3-0 Yes [id number] 1{puff} Inhale 1 Univers -Salmeterol 1-24 Puff every it y of (ADVAIR 00:00: 12 [place] DISKUS) 00 (twelve) Medical 100-50 hours. Branch mcg/dose inhalation disk Fluticasone 2023-0 Yes [id number] 1{puff} Inhale 1 Univers -Salmeterol 1-24 Puff every it y of (ADVAIR 00:00: 12 [place] DISKUS) 00 (twelve) Medical 100-50 hours. Branch mcg/dose inhalation disk Fluticasone 2023-0 Yes [id number] 1{puff} Inhale 1 Univers -Salmeterol 1-24 Puff every it y of (ADVAIR 00:00: 12 [place] DISKUS) 00 (twelve) Medical 100-50 hours. Branch mcg/dose inhalation disk Fluticasone 3-0 Yes [id number] 1{puff} Inhale 1 [facility] -Salmeterol 1-24 Puff every it y of (ADVAIR 00:00: 12 [place] DISKUS) 00 (twelve) Medical 100-50 hours. Branch mcg/dose inhalation disk Fluticasone 3-0 Yes [id number] 1{puff} Inhale 1 [facility] -Salmeterol 1-24 Puff every it y of (ADVAIR 00:00: 12 [place] DISKUS) 00 (twelve) Medical 100-50 hours. Branch mcg/dose inhalation disk Fluticasone 3-0 Yes [id number] 1{puff} Inhale 1 [facility] -Salmeterol 1-24 Puff every it y of (ADVAIR 00:00: 12 [place] DISKUS) 00 (twelve) Medical 100-50 hours. Branch mcg/dose inhalation disk Fluticasone 3-0 Yes [id number] 1{puff} Inhale 1 [facility] -Salmeterol 1-24 Puff every it y of (ADVAIR 00:00: 12 [place] DISKUS) 00 (twelve) Medical 100-50 hours. Branch mcg/dose inhalation disk Fluticasone 3-0 Yes [id number] 1{puff} Inhale 1 [facility] -Salmeterol 1-24 Puff every it y of (ADVAIR 00:00: 12 [place] DISKUS) 00 (twelve) Medical 100-50 hours. Branch mcg/dose inhalation disk Fluticasone 3-0 Yes [id number] 1{puff} Inhale 1 [facility] -Salmeterol 1-24 Puff every it y of (ADVAIR 00:00: 12 [place] DISKUS) 00 (twelve) Medical 100-50 hours. Branch mcg/dose inhalation disk Fluticasone 2023-0 Yes [id number] 1{puff} Inhale 1 [facility] -Salmeterol 1-24 Puff every it y of (ADVAIR 00:00: 12 [place] DISKUS) 00 (twelve) Medical 100-50 hours. Branch mcg/dose inhalation disk Fluticasone 3-0 Yes [id number] 1{puff} Inhale 1 [facility] -Salmeterol 1-24 Puff every it y of (ADVAIR 00:00: 12 [place] DISKUS) 00 (twelve) Medical 100-50 hours. Branch mcg/dose inhalation disk Fluticasone 2023-0 Yes [id number] 1{puff} Inhale 1 [facility] -Salmeterol 1-24 Puff every it y of (ADVAIR 00:00: 12 [place] DISKUS) 00 (twelve) Medical 100-50 hours. Branch mcg/dose inhalation disk Fluticasone 3-0 Yes [id number] 1{puff} Inhale 1 [facility] -Salmeterol 1-24 Puff every it y of (ADVAIR 00:00: 12 [place] DISKUS) 00 (twelve) Medical 100-50 hours. Branch mcg/dose inhalation disk Fluticasone 2023-0 Yes [id number] 1{puff} Inhale 1 [facility] -Salmeterol 1-24 Puff every it y of (ADVAIR 00:00: 12 [place] DISKUS) 00 (twelve) Medical 100-50 hours. Branch mcg/dose inhalation disk Fluticasone 3-0 Yes [id number] 1{puff} Inhale 1 [facility] -Salmeterol 1-24 Puff every it y of (ADVAIR 00:00: 12 [place] DISKUS) 00 (twelve) Medical 100-50 hours. Branch mcg/dose inhalation disk Fluticasone 3-0 Yes [id number] 1{puff} Inhale 1 [facility] -Salmeterol 1-24 Puff every it y of (ADVAIR 00:00: 12 [place] DISKUS) 00 (twelve) Medical 100-50 hours. Branch mcg/dose inhalation disk Fluticasone 3-0 Yes [id number] 1{puff} Inhale 1 [facility] -Salmeterol 1-24 Puff every it y of (ADVAIR 00:00: 12 [place] DISKUS) 00 (twelve) Medical 100-50 hours. Branch mcg/dose inhalation disk ipratropium 3-0 2023- No [id number] USE 3 ML Univers -albuteroL 1-24 03-03 IN ity of 0.5 mg-3 00:00: 00:00 NEBULIZER [place] mg(2.5 mg 00 :00 EVERY 4 Medical base)/3 mL HOURS Branc h nebulizer NEEDED FOR solution WHEEZING OR SHORTNESS OF BREATH ipratropium Yes USE 3 ML [facility] -albuteroL 1-23 IN ity of 0.5 mg-3 00:00[place] mg(2.5 mg 00 EVERY 4 Medical base)/3 mL HOURS Branc h nebulizer NEEDED FOR solution WHEEZING OR SHORTNESS OF BREATH ipratropium 0 2022- No USE 3 ML Univers -albuteroL 1-23 -24 IN ity of 0.5 mg-3 00:00: 00:00 NEBULIZER [place] mg(2.5 mg 00 :00 EVERY 4 Medical base)/3 mL HOURS Branc h nebulizer NEEDED FOR solution WHEEZING OR SHORTNESS OF BREATH ipratropium 2022- No USE 3 ML Univers -albuteroL 1-23 -24 IN ity of 0.5 mg-3 00:00: 00:00 [...] WHEEZING OR SHORTNESS OF BREATH IPRATROPIUM 2021-04 No [id number] USE 3 ML Univers -ALBUTEROL 2-27 01-23 IN ity of 0.5 mg-3 00:00: 00:00 NEBULIZER [place] mg(2.5 mg 00 :00 EVERY 4 Medical base)/3 mL HOURS Branc h nebulizer NEEDED FOR solution WHEEZING OR SHORTNESS OF BREATH ipratropium 0 Yes [id number] 3mL Inhale 3 Univers -albuteroL 9-23 mL every 4 ity of 0.5 mg-3 00:00: (four) [place] mg(2.5 mg 00 hours as Medica l base)/3 mL needed for Bra nch nebulizer Wheezing solution or Shortness of Breath. ipratropium Yes [id number] 3mL Inhale 3 Univers -albuteroL 9-23 mL every 4 ity of 0.5 mg-3 00:00: (four) [place] mg(2.5 mg 00 hours as Medica l base)/3 mL needed for Bra nch nebulizer Wheezing solution or Shortness of Breath. ipratropium No [id number] 3mL Inhale 3 Univers -albuteroL 9-23 12-27 mL every 4 it y of 0.5 mg-3 00:00: 00:00 (four) [place] mg(2.5 mg 00 :00 hours as Medica l base)/3 mL needed for Bra nch nebulizer Wheezing solution or Shortness of Breath. ipratropium Yes [id number] 3mL Inhale 3 Univers -albuteroL 6-22 mL every 4 ity of 0.5 mg-3 00:00: (four) [place] mg(2.5 mg 00 hours as Medica l base)/3 mL needed for Bra nch nebulizer Wheezing solution or Shortness of Breath. ipratropium 2021- No [id number] 3mL Inhale 3 Univers -albuteroL 6-22 09-23 mL every 4 it y of 0.5 mg-3 00:00: 00:00 (four) [place] mg(2.5 mg 00 :00 hours as Medica l base)/3 mL needed for Bra nch nebulizer Wheezing solution or Shortness of Breath. fluticasone 2022-0 Yes [id number] 1{puff} Inhale 1 [facility] propion-david 4-04 Puff every it y of meteroL 00:00: 12 [place] (ADVAIR ) Medical DISKUS) hours. Branch 250-50 mcg/dose inhalation disk fluticasone 2-0 Yes [id number] 1{puff} Inhale 1 [facility] propion-david 4-04 Puff every it y of meteroL 00:00: 12 [place] (ADVAIR ) Medical DISKUS) hours. Branch 250-50 mcg/dose inhalation disk fluticasone 2-0 Yes [id number] 1{puff} Inhale 1 [facility] propion-david 4-04 Puff every it y of meteroL 00:00: 12 [place] (ADVAIR ) Medical DISKUS) hours. Branch 250-50 mcg/dose inhalation disk fluticasone 2-0 Yes [id number] 1{puff} Inhale 1 [facility] propion-david 4-04 Puff every it y of meteroL 00:00: 12 [place] (ADVAIR ) Medical DISKUS) hours. Branch 250-50 mcg/dose inhalation disk fluticasone 2-0 Yes [id number] 1{puff} Inhale 1 [facility] propion-david 4-04 Puff every it y of meteroL 00:00: 12 [place] (ADVAIR ) Medical DISKUS) hours. Branch 250-50 mcg/dose inhalation disk fluticasone 2-0 Yes [id number] 1{puff} Inhale 1 [facility] propion-david 4-04 Puff every it y of meteroL 00:00: 12 [place] (ADVAIR ) Medical DISKUS) hours. Branch 250-50 mcg/dose inhalation disk fluticasone 2-0 Yes [id number] 1{puff} Inhale 1 [facility] propion-david 4-04 Puff every it y of meteroL 00:00: 12 [place] (ADVAIR ) Medical DISKUS) hours. Branch 250-50 mcg/dose inhalation disk fluticasone 2-0 Yes [id number] 1{puff} Inhale 1 [facility] propion-david 4-04 Puff every it y of meteroL 00:00: 12 [place] (ADVAIR ) Medical DISKUS) hours. Branch 250-50 mcg/dose inhalation disk fluticasone Yes [id number] 1{puff} Inhale 1 [facility] propion-david 4-04 Puff every it y of meteroL 00:00: 12 [place] (ADVAIR 00 (twelve) Medical DISKUS) hours. Branch 250-50 mcg/dose inhalation disk fluticasone 0 Yes [id number] 1{puff} Inhale 1 [facility] propion-david 4-04 Puff every it y of meteroL 00:00: 12 [place] (ADVAIR 00 (twelve) Medical DISKUS) hours. Branch 250-50 mcg/dose inhalation disk fluticasone 0 Yes [id number] 1{puff} Inhale 1 [facility] propion-david 4-04 Puff every it y of meteroL 00:00: 12 [place] (ADVAIR 00 (twelve) Medical DISKUS) hours. Branch 250-50 mcg/dose inhalation disk fluticasone 2021-0 2022- No [id number] 1{puff} Inhale 1 [facility] propion-david 4-04 01-24 Puff every i ty of meteroL 00:00: 00:00 12 [place] (ADVAIR 00 :00 (twelve) Medical DISKUS) hours. Branch 250-50 mcg/dose inhalation disk fluticasone 2021-0 2022- No [id number] 1{puff} Inhale 1 [facility] propion-david 4-04 01-24 Puff every i ty of meteroL 00:00: 00:00 12 [place] (ADVAIR 00 :00 (twelve) Medical DISKUS) hours. Branch 250-50 mcg/dose inhalation disk pregabalin 2021-2021- No [id number] 50mg Take 2 [facility] 25 mg 3-30 -30 [id number] capsules ity of capsule 00:00: 04:59 by mouth 3 [place] 00 :00 (three) Medical times Branch daily for 30 days. pregabalin 2021-0 2021- No [id number] 50mg Take 2 [facility] 25 mg 3-30 -30 9107 capsules ity of capsule 00:00: 04:59 by mouth 3 [place] 00 :00 (three) Medical times Branch daily for 30 days. oxyCODONE-a 2- No [id number] 1{tbl} Take 1 U nivers cetaminophe 3-30 04-07 tablet by it y of n 5-325 mg 00:00: 04:59 mouth [place] per tablet 00 :00 every 4 Medica l (four) Branch hours as needed for Pain (scale 4-6) or Pain (scale 7-10) for up to 7 days. Indication s: acute pain ipratropium 2021-0 Yes [id number] 3mL Inhale 3 [facility] -albuteroL 3-09 mL every 4 ity of 0.5 mg-3 00:00: (four) [place] mg(2.5 mg 00 hours as Medica l base)/3 mL needed for Bra nch nebulizer Wheezing solution or Shortness of Breath. ipratropium 2021-0 Yes [id number] 3mL Inhale 3 [facility] -albuteroL 3-09 mL every 4 ity of 0.5 mg-3 00:00: (four) [place] mg(2.5 mg 00 hours as Medica l base)/3 mL needed for Bra nch nebulizer Wheezing solution or Shortness of Breath. ipratropium 2021-0 Yes [id number] 3mL Inhale 3 [facility] -albuteroL 3-09 mL every 4 ity of 0.5 mg-3 00:00: (four) [place] mg(2.5 mg 00 hours as Medica l base)/3 mL needed for Bra nch nebulizer Wheezing solution or Shortness of Breath. ipratropium 2021-0 Yes [id number] 3mL Inhale 3 Univers -albuteroL 3-09 mL every 4 ity of 0.5 mg-3 00:00: (four) [place] mg(2.5 mg 00 hours as Medica l base)/3 mL needed for Bra nch nebulizer Wheezing solution or Shortness of Breath. ipratropium 2021-0 2021- No [id number] 3mL Inhale 3 Univers -albuteroL 3-09 06-22 mL every 4 it y of 0.5 mg-3 00:00: 00:00 (four) [place] mg(2.5 mg 00 :00 hours as Medica l base)/3 mL needed for Bra nch nebulizer Wheezing solution or Shortness of Breath. albuterol 2018-0 Yes [id number] 2{puff} Inhale 2 Univers 90 6-06 Puffs ity of mcg/actuati 00:00: every 4 [place] on inhaler 00 (four) Medical hours as Branch needed for Wheezing or Shortness of Breath. albuterol Yes [id number] 2{puff} Inhale 2 [facility] 90 6-06 Puffs ity of mcg/actuati 00:00: every 4 [place] on inhaler 00 (four) Medical hours as Branch needed for Wheezing or Shortness of Breath. albuterol 2018- Yes [id number] 2{puff} Inhale 2 Univers 90 6-06 Puffs ity of mcg/actuati 00:00: every 4 [place] on inhaler 00 (four) Medical hours as Branch needed for Wheezing or Shortness of Breath. albuterol Yes [id number] 2{puff} Inhale 2 [facility] 90 6-06 Puffs ity of mcg/actuati 00:00: every 4 [place] on inhaler 00 (four) Medical hours as Branch needed for Wheezing or Shortness of Breath. albuterol Yes [id number] 2{puff} Inhale 2 [facility] 90 6-06 Puffs ity of mcg/actuati 00:00: every 4 [place] on inhaler 00 (four) Medical hours as Branch needed for Wheezing or Shortness of Breath. albuterol Yes [id number] 2{puff} Inhale 2 [facility] 90 6-06 Puffs ity of mcg/actuati 00:00: every 4 [place] on inhaler 00 (four) Medical hours as Branch needed for Wheezing or Shortness of Breath. albuterol Yes [id number] 2{puff} Inhale 2 [facility] 90 6-06 Puffs ity of mcg/actuati 00:00: every 4 [place] on inhaler 00 (four) Medical hours as Branch needed for Wheezing or Shortness of Breath. albuterol 2018- Yes [id number] 2{puff} Inhale 2 [facility] 90 6-06 Puffs ity of mcg/actuati 00:00: every 4 [place] on inhaler 00 (four) Medical hours as Branch needed for Wheezing or Shortness of Breath. albuterol Yes [id number] 2{puff} Inhale 2 [facility] 90 6-06 Puffs ity of mcg/actuati 00:00: every 4 [place] on inhaler 00 (four) Medical hours as Branch needed for Wheezing or Shortness of Breath. albuterol Yes [id number] 2{puff} Inhale 2 [facility] 90 6-06 Puffs ity of mcg/actuati 00:00: every 4 [place] on inhaler 00 (four) Medical hours as Branch needed for Wheezing or Shortness of Breath. albuterol Yes [id number] 2{puff} Inhale 2 [facility] 90 6-06 Puffs ity of mcg/actuati 00:00: every 4 [place] on inhaler 00 (four) Medical hours as Branch needed for Wheezing or Shortness of Breath. albuterol Yes [id number] 2{puff} Inhale 2 [facility] 90 6-06 Puffs ity of mcg/actuati 00:00: every 4 [place] on inhaler 00 (four) Medical hours as Branch needed for Wheezing or Shortness of Breath. albuterol Yes [id number] 2{puff} Inhale 2 [facility] 90 6-06 Puffs ity of mcg/actuati 00:00: every 4 [place] on inhaler 00 (four) Medical hours as Branch needed for Wheezing or Shortness of Breath. albuterol Yes [id number] 2{puff} Inhale 2 [facility] 90 6-06 Puffs ity of mcg/actuati 00:00: every 4 [place] on inhaler 00 (four) Medical hours as Branch needed for Wheezing or Shortness of Breath. albuterol Yes [id number] 2{puff} Inhale 2 [facility] 90 6-06 Puffs ity of mcg/actuati 00:00: every 4 [place] on inhaler 00 (four) Medical hours as Branch needed for Wheezing or Shortness of Breath. albuterol Yes [id number] 2{puff} Inhale 2 [facility] 90 6-06 Puffs ity of mcg/actuati 00:00: every 4 [place] on inhaler 00 (four) Medical hours as Branch needed for Wheezing or Shortness of Breath. albuterol Yes [id number] 2{puff} Inhale 2 [facility] 90 6-06 Puffs ity of mcg/actuati 00:00: every 4 [place] on inhaler 00 (four) Medical hours as Branch needed for Wheezing or Shortness of Breath. albuterol Yes [id number] 2{puff} Inhale 2 [facility] 90 6-06 Puffs ity of mcg/actuati 00:00: every 4 [place] on inhaler 00 (four) Medical hours as Branch needed for Wheezing or Shortness of Breath. albuterol Yes [id number] 2{puff} Inhale 2 [facility] 90 6-06 Puffs ity of mcg/actuati 00:00: every 4 [place] on inhaler 00 (four) Medical hours as Branch needed for Wheezing or Shortness of Breath. albuterol Yes [id number] 2{puff} Inhale 2 Univers 90 6-06 Puffs ity of mcg/actuati 00:00: every 4 [place] on inhaler 00 (four) Medical hours as Branch needed for Wheezing or Shortness of Breath. albuterol 2022- No [id number] 2{puff} Inhale 2 Univers 90 6-06 05-22 Puffs ity of mcg/actuati 00:00: 00:00 every 4 [place] on inhaler 00 :00 (four) Medical hours as Branch needed for Wheezing or Shortness of Breath. Vital Signs Vital Name Observation Time Observation Value Comments Source Heart rate 2022-11-29 04:15:00 89 /min [facility] Respiratory rate 2022-11-29 04:15:00 33 /min [facility] Oxygen saturation in 2022-11-29 04:15:00 93 /min [facility] Arterial blood by [facility] Pulse oximetry Branch Systolic blood 2022-11-29 03:12:00 121 mm[Hg] [facility] Diastolic blood 2022-11-29 03:12:00 74 mm[Hg] [facility] Body temperature 2022-11-29 03:12:00 36.44 Thi [facility] Body height 2022-11-29 03:12:00 182.9 cm [facility] Body weight 2022-11-29 03:12:00 65.772 kg [facility] BMI 2022-11-29 03:12:00 19.67 kg/m2 [facility] Respiratory rate 2022-11-15 16:22:00 20 /min [facility] [place] [facility] Oxygen saturation in 2022-11-15 16:22:00 99 /min [facility] Arterial blood by [place] [facility] Pulse oximetry Branch Systolic blood 2022-11-15 16:03:00 97 mm[Hg] Univer [facility]ity of [facility] [place] [facility] Diastolic blood 2022-11-15 16:03:00 59 mm[Hg] Unive rsity of [facility] [place] [facility] Heart rate 2022-11-15 16:03:00 74 /min [facility] [place] [facility] Body temperature 2022-11-15 16:03:00 36.78 Thi [facility] [place] [facility] Body height 2022-11-13 08:19:00 182.9 cm [facility] [place] [facility] Body weight 2022-11-13 08:19:00 67.495 kg [facility] [place] [facility] BMI 2022-11-13 08:19:00 20.18 kg/m2 [facility] [place] [facility] Systolic blood 2022-10-24 16:03:00 97 mm[Hg] [facility] [place] [facility] Diastolic blood 2022-10-24 16:03:00 61 mm[Hg] Unive rsity of [facility] [place] [facility] Heart rate 2022-10-24 16:03:00 101 /min [facility] [place] [facility] Body height 2022-10-24 16:03:00 182.9 cm [facility] [place] [facility] Body weight 2022-10-24 16:03:00 66.452 kg [facility] [place] [facility] BMI 2022-10-24 16:03:00 19.87 kg/m2 [facility] [place] [facility] Oxygen saturation in 2022-10-24 16:03:00 94 /min [facility] Arterial blood by [place] [facility] Pulse oximetry Branch Respiratory rate 2022-10-23 18:58:00 16 /min [facility] Oxygen saturation in 2022-10-23 18:58:00 93 /min University of Arterial blood by [facility] sal Pulse oximetry Branch Systolic blood 2022-10-23 16:34:00 107 mm[Hg] Univer sity of [facility] [place] [facility] Diastolic blood 2022-10-23 16:34:00 67 mm[Hg] Unive rsity [facility] [place] [facility] Heart rate 2022-10-23 16:34:00 80 /min [facility] [place] [facility] Body temperature 2022-10-23 16:34:00 36.33 Thi [facility] [place] [facility] Body weight 2022-10-23 09:04:00 65.499 kg [facility] [place] [facility] BMI 2022-10-23 09:04:00 19.58 kg/m2 [facility] [place] [facility] Body height 2022-10-22 19:16:00 182.9 cm [facility] [place] [facility] Systolic blood 2022-10-17 19:15:00 111 mm[Hg] [facility] [place] [facility] Diastolic blood 2022-10-17 19:15:00 70 mm[Hg] [facility] [place] [facility] Heart rate 2022-10-17 19:15:00 89 /min [facility] [place] [facility] Body temperature 2022-10-17 19:15:00 36.56 Thi [facility] [place] [facility] Respiratory rate 2022-10-17 19:15:00 18 /min [facility] [place] [facility] Oxygen saturation in 2022-10-17 19:15:00 90 /min [facility] of Arterial blood by [employer] Pulse oximetry Branch Body weight 2022-10-17 08:34:00 65 kg [facility] [place] [facility] BMI 2022-10-17 08:34:00 19.43 kg/m2 [facility] [place] [facility] Body height 2022-10-15 14:06:00 182.9 cm [facility] [place] [facility] Systolic blood 2022-10-02 16:00:00 92 mm[Hg] [facility] [place] [facility] Diastolic blood 2022-10-02 16:00:00 62 mm[Hg] [facility] [place] [facility] Heart rate 2022-10-02 16:00:00 80 /min [facility] [place] [facility] Respiratory rate 2022-10-02 16:00:00 18 /min [facility] [place] [facility] Oxygen saturation in 2022-10-02 16:00:00 92 /min [facility] of Arterial blood by [employer] sal Pulse oximetry Branch Body temperature 2022-10-02 12:53:00 36.61 Thi [facility] [place] [facility] Body weight 2022-10-02 12:53:00 64.864 kg [facility] [place] [facility] BMI 2022-10-02 12:53:00 19.39 kg/m2 [facility] [place] [facility] Respiratory rate 2022-09-18 13:11:00 18 /min [facility] [place] [facility] Oxygen saturation in 2022-09-18 13:11:00 93 /min [facility] Arterial blood by [place] [employer] sal Pulse oximetry Branch Systolic blood 2022-09-18 12:24:00 107 mm[Hg] [facility] [place] [facility] Diastolic blood 2022-09-18 12:24:00 69 mm[Hg] [facility] [place] [facility] Heart rate 2022-09-18 12:24:00 84 /min [facility] [place] [facility] Body temperature 2022-09-18 12:24:00 35.94 Hti [facility] [place] [facility] Body weight 2022-09-18 08:34:00 65 kg [facility] [place] [facility] BMI 2022-09-18 08:34:00 19.43 kg/m2 [facility] [place] [facility] Body height 2022-09-17 10:09:00 182.9 cm [facility] [place] [facility] Systolic blood 2022-08-21 00:00:00 111 mm[Hg] [facility] [place] [facility] Diastolic blood 2022-08-21 00:00:00 70 mm[Hg] [facility] [place] [facility] Heart rate 2022-08-21 00:00:00 90 /min [facility] [place] [facility] Oxygen saturation in 2022-08-21 00:00:00 97 /min [facility] Arterial blood by [place] [employer] sal Pulse oximetry Branch Respiratory rate 2022-08-20 23:30:00 18 /min [facility] [place] [facility] Body temperature 2022-08-20 22:33:00 36.61 Thi [facility] [place] [facility] Body height 2022-08-20 22:33:00 182.9 cm [facility] [place] [facility] Body weight 2022-08-20 22:33:00 68.04 kg [facility] [place] [facility] BMI 2022-08-20 22:33:00 20.34 kg/m2 [facility] [place] [facility] Systolic blood 2022-05-29 11:00:00 95 mm[Hg] [facility] [place] [facility] Diastolic blood 2022-05-29 11:00:00 80 mm[Hg] [facility] [place] [facility] Heart rate 2022-05-29 11:00:00 101 /min [facility] [place] [facility] Respiratory rate 2022-05-29 11:00:00 17 /min [facility] [place] [facility] Oxygen saturation in 2022-05-29 11:00:00 93 /min [facility] of Arterial blood by [facility] Pulse oximetry Branch Body temperature 2022-05-29 09:14:00 36.11 Thi [facility] [place] [facility] Body height 2022-05-29 09:14:00 182.9 cm [facility] [place] [facility] Body weight 2022-05-29 09:14:00 65.772 kg [facility] [place] [facility] BMI 2022-05-29 09:14:00 19.67 kg/m2 [facility] [place] [facility] Systolic blood 2022-05-23 19:08:00 107 mm[Hg] [facility] [place] [facility] Diastolic blood 2022-05-23 19:08:00 68 mm[Hg] [facility] [place] [facility] Heart rate 2022-05-23 19:08:00 100 /min [facility] [place] [facility] Body temperature 2022-05-23 19:08:00 36.67 Thi [facility] [place] [facility] Body height 2022-05-23 19:08:00 182.9 cm [facility] [place] [facility] Body weight 2022-05-23 19:08:00 67.586 kg [facility] [place] [facility] BMI 2022-05-23 19:08:00 20.21 kg/m2 [facility] [place] [facility] Oxygen saturation in 2022-05-23 19:08:00 91 /min [facility] Arterial blood by [facility] Pulse oximetry Branch Systolic blood 2021-08-01 16:04:00 100 mm[Hg] [facility] [place] [facility] Diastolic blood 2021-08-01 16:04:00 64 mm[Hg] [facility] [place] [facility] Heart rate 2021-08-01 16:04:00 90 /min [facility] Body height 2021-08-01 16:04:00 182.9 cm [facility] Body weight 2021-08-01 16:04:00 59.603 kg [facility] BMI 2021-08-01 16:04:00 17.82 kg/m2 [facility] Oxygen saturation in 2021-08-01 16:04:00 97 /min [facility] Arterial blood by [facility] Pulse oximetry Branch Procedures Procedure Date / Time Performing Clinician Source Performed CT CHEST PULMONARY 2022-11-29 04:04:00 Ced Guy [facility] ANGIOGRAM Medical Branch RAPID INFLUENZA A/B 2022-11-29 03:43:00 Ced Guy [facility] COVID-19 (ID NOW RAPID 2022-11-29 03:43:00 Ced Guy [facility] TESTING) [facility] AC PANEL 21 + LACTIC 2022-11-29 03:39:00 Ced Guy [facility] ACID [facility] TROPONIN I 2022-11-29 03:33:00 Ced Guy [facility] COMP. METABOLIC PANEL 2022-11-29 03:33:00 Ced Guy [facility] ([id number]) [facility] CBC WITH DIFF 2022-11-29 03:33:00 Ced Guy [facility] N-TERMINAL PRO-BNP 2022-11-29 03:33:00 Ced Guy [facility] NOTICE OF PRIVACY 2022-11-29 03:02:14 Doctor Unassigned, No [facility] PRACTICES Name [facility] CONSENT/REFUSAL FOR 2022-11-29 03:01:46 Doctor Unassigned, No [facility] DIAGNOSIS AND TREATMENT Name [facility] BASIC METABOLIC PANEL 2022-11-15 08:45:00 Lupe Mosley [facility] (NA, K, CL, CO2, Medical Branch GLUCOSE, BUN, CREATININE, CA) CBC WITH DIFF 2022-11-15 08:45:00 Lupe Mosley [facility] BASIC METABOLIC PANEL 2022-11-14 09:55[facility], CL, CO2, Medical Branch GLUCOSE, BUN, CREATININE, CA) CBC WITH DIFF 2022-11-14 09:55:00 [facility] 2022-11-14 09:55:00 [facility] 1 2022-11-13 07:10:00 Jonah Chauhan [facility] TROPONIN I 2022-11-13 06:22:00 Jonah Chauhan [facility] COMP. METABOLIC PANEL 2022-11-13 06:22:00 Jonah Chauhan [facility] ([id number]) [facility] CBC WITH DIFF 2022-11-13 06:22:00 Jonah Chauhan [facility] HB ECG ROUTINE & RHYTHM 2022-11-13 06:15:01 Jonah Chauhan [facility] STRIP [facility] BASIC METABOLIC PANEL 2022-10-23 09:03:00 Cassy [facility] (NA, K, CL, CO2, Medical Branch GLUCOSE, BUN, CREATININE, CA) CBC WITH DIFF 2022-10-23 09:03:00 [facility] 1 2022-10-23 00:41:00 jessica [facility] EKG-12 LEAD 2022-10-22 22:32:11 Matthew Monge [facility] CONSENT/REFUSAL FOR 2022-10-22 13:37:31 Doctor Unassigned, No Un [facility] DIAGNOSIS AND TREATMENT Name Medical [place] BASIC METABOLIC PANEL 2022-10-17 08:37:00 Deric Hawkins [facility] (NA, K, CL, CO2, Medical Branch GLUCOSE, BUN, CREATININE, CA) CBC WITH DIFF 2022-10-17 08:37:00 Deric Hawkins [facility] TROPONIN I 2022-10-15 12:24:00 Jonah Chauhan [facility] COMP. METABOLIC PANEL 2022-10-15 12:24:00 Jonah Chauhan [facility] ([id number]) Medical Branch CBC WITH DIFF 2022-10-15 12:24:00 Jonah Chauhan [facility] N-TERMINAL PRO-BNP 2022-10-15 12:24:00 Jonah Chauhan [facility] XR CHEST 1 VW 2022-10-15 11:52:47 Singer [facility] HB ECG ROUTINE & RHYTHM 2022-10-15 11:37:53 Jonah Chauhan [facility] STRIP [facility] CONSENT/REFUSAL FOR 2022-10-15 11:20:52 Doctor Unassigned, No [facility] Name [facility] URINALYSIS 2022-10-02 15:23:00 Singer [facility] CT ABDOMEN PELVIS W 2022-10-02 13:39:00 Singer [facility] CONTRAST [facility] LIPASE 2022-10-02 13:09:00 [facility] TROPONIN I 2022-10-02 13:09:00 [facility] COMP. METABOLIC PANEL 2022-10-02 13:09:00 [facility] ([id number]) [facility] CBC WITH DIFF 2022-10-02 13:09:00 [facility] CONSENT/REFUSAL FOR 2022-10-02 12:47:09 Doctor Unassigned, No [facility] Name [facility] BASIC METABOLIC PANEL 2022-09-18 08:[facility] ([facility], CL, CO2, Medical Branch GLUCOSE, BUN, CREATININE, CA) CBC WITH DIFF 2022-09-18 08:37:00 [facility]IN 2022-09-18 08:37:[address] [facility] COVID-19 (ID NOW RAPID 2022-09-18 01:08:[address] [facility] TESTING) [facility] SPUTUM CULTURE 2022-09-17 16:54:00 Ibis Roberts [facility] COMP. METABOLIC PANEL 2022-09-17 06:40:00 Nguyễn Goddard [facility] ([id number]) Medical Branch XR CHEST 1 VW 2022-09-17 06:24:45 Nguyễn Goddard [facility] HB ECG ROUTINE & RHYTHM 2022-09-17 06:04:28 Nguyễn Goddard [facility] STRIP [facility] TROPONIN I 2022-09-17 06:01:00 Singer [facility] CBC WITH DIFF 2022-09-17 06:01:00 Singer [facility] N-TERMINAL PRO-BNP 2022-09-17 06:01:00 Nguyễn Goddard [facility] NOTICE OF PRIVACY 2022-09-17 05:48:21 Doctor Unassigned, No [facility] PRACTICES Name Medical Branch CONSENT/REFUSAL FOR 2022-09-17 05:47:33 Doctor Unassigned, No [facility] DIAGNOSIS AND TREATMENT Name [facility] EKG-12 LEAD 2022-08-21 01:33:44 Osiris Smith [facility] CT ANGIOGRAM CHEST 2022-08-20 23:19:19 Osiris Smith [facility] CT ANGIOGRAM 2022-08-20 23:19:19 Osiris Smith [facility] ABDOMEN/PELVIS Medical Branch XR CHEST 1 VW 2022-08-20 22:57:45 Osiris Smith [facility] LIPASE 2022-08-20 22:48:00 Osiris Smith [facility] TROPONIN I 2022-08-20 22:48:00 Osiris Smith [facility] COMP. METABOLIC PANEL 2022-08-20 22:48:00 Osiris Smith [facility] ([id number]) Medical Branch CBC WITH DIFF 2022-08-20 22:48:00 Osiris Smith [facility] PROTHROMBIN TIME / INR 2022-08-20 22:48:00 Osiris Smith [facility] ACTIVATED PARTIAL 2022-08-20 22:48:00 Osiris Smith [facility] FOR 2022-08-20 22:26:57 Doctor Unassigned, No Un [facility] DIAGNOSIS AND TREATMENT Name Medical Branch XR CHEST 1 VW 2022-05-29 09:36:00 Willa Brody [facility] BASIC METABOLIC PANEL 2022-05-29 09:20:00 Willa Brody [facility] (NA, K, CL, CO2, Medical Branch GLUCOSE, BUN, CREATININE, CA) CBC WITH DIFF 2022-05-29 09:20:00 Willa Brody [facility] RAPID INFLUENZA A/B 2022-05-29 09:20:00 Willa Brody [facility] COVID-19 (ID NOW RAPID 2022-05-29 09:20:00 Willa Brody [facility] TESTING) Medical Branch Encounters Start End Encounter Admission Attending Care Care Encounter Source Date/Time Date/Time Type Type Clinicians Facility Department ID 2021-02-24 Emergency [facility] [id number] Univers [facility]24 Emergency [facility] [id number] Univers 14:55:54 [facility] 2023-04-27 2023-04-27 Outpatient R AINSLEY [facility] [id number] Univers 16:30:00 16:30:00 BETTY [facility] 2022-11-28 2022-11-28 Emergency X MALENA [facility] ERT [id number] Univers 22:11:00 23:54:00 [facility] 2022-11-28 2022-11-28 Emergency [facility] 1.2.840.114 [id number] Univers 22:11:00 23:54:00 Ced A LEXIE 350.1.13.10 ity [facility] 4.2.7.2.686 [facility] [id number] [facility] 084 Branch 2022-11-16 2022-11-16 Transition CARLIE Doshi 1.2.840.114 [id number] Univers 00:00:00 00:00:00 of Care Jasmine YOUSSEF 350.1.13.10 it y of [place] [id number] [facility] [address] [place] 2022-11-13 2022-11-15 Inpatient X PATRICK [facility] [id number] Univers 01:12:00 15:18:00 FLORIAN beckford [facility] 2022-11-13 2022-11-15 Hospital Jonha Chauhan [facility] 1.2.840.11 [id number] Univers 01:12:00 15:18:00 Encounter Florian Nguyen 350.1.13.10 ity of [facility] 4.2.7.2.686 [facility] [id number] [place] [address] [place] 2022-11-09 2022-11-09 Telephone [facility] 1.2.206.936 [id number] Univers 00:00:00 00:00:00 Lalitha OWEN 350.1.13.10 i ty of [place] [id number] [address] 2022-11-06 2022-11-06 Pre Visit ANAT Mensah 1.2.517.192 [id number] Univers 00:00:00 00:00:00 Outreach Louie Kalina RODRIGUE 350.1.13.[address] [facility] 4.2.7.2.686 Humberto as [id number] [place] [address] [place] 2022-11-03 2022-11-03 Telephone [facility] 1.2.087.358 [id number] Univers 00:00:00 00:00:00 Lalitha OWEN 350.1.13.10 i ty of [place] [id number] [address] 2022-10-24 2022-10-24 Outpatient R AINSLEY [facility] [id number] Univers 11:00:00 11:32:51 BETTY beckford [facility] 2022-10-24 2022-10-24 Office [facility] 1.2.840.114 [id number] Univers 11:00:00 11:32:51 Visit Betty HEALTH 350.1.13.10 it y of [place] 4.2.7.2.686 Humberto as PAUL?BLEA [id number] [address] OFFICE [facility] 2022-10-24 2022-10-24 Transition CARLIE Doshi 1.2.840.114 [id number] Univers 00:00:00 00:00:00 of Care Jasmine YOUSSEF 350.1.13.10 it [place] [id number] [address] 2022-10-22 2022-10-23 Outpatient X CASSY [facility] [id number] Univers 08:38:00 14:35:00 AISHWARYA ity [facility] 2022-10-22 2022-10-23 Emergency Matthew Monge [facility] 1.2.840.1 14 [id number] Univers 08:38:00 14:35:00 Angejessica Aishwarya LEXIE 350.1.13.10 ity of [place].2.7.2.686 [place] [facility] [id number] [facility] 0[address] [place] 2022-10-19 2022-10-19 [facility] 1.2.840.114 [id number] Univers 00:00:00 00:00:00 Simon HEALTH 350.1.13.10 it y of [place] 4.2.7.2.686 Humberto as PAUL?BLEA [id number] Nm markos [address] MEDICAL OFFICE [facility] 2022-10-18 2022-10-18 Transition CARLIE Doshi 1.2.840.114 [id number] Univers 00:00:00 00:00:00 of Care Jasmine METCALFY 350.1.13.10 it [place] [id number] [facility] [address] [place] 2022-10-15 2022-10-17 Inpatient X PATRICK [facility] [id number] Univers 06:20:00 14:31:00 FLORIAN beckford [facility] 2022-10-15 2022-10-17 Hospital Jonah Chauhan [facility] 1.2.840.11 [id number] Univers 06:20:00 14:31:00 Encounter Florian Nguyen LEXIE 350.1.13.10 ity of [place] 4.2.7.2.686 [facility] [id number] [place] [address] [place] 2022-10-02 2022-10-02 Emergency [facility] [id number] Univers 07:55:00 12:12:00 NGUYỄN riddhikely [facility] 2022-10-02 2022-10-02 [facility] 1.2.765.319 [id number] Univers 07:55:00 12:12:00 Nguyễn LEXIE 350.1.13.10 i ty [facility] 4.2.7.2.686 [facility] [id number] [place] [address] [place] 2022-09-19 2022-09-19 Transition CARLIE Oswald 1.2.840.114 [id number] Univers 00:00:00 00:00:00 of Care Joel Nelda YOUSSEF 350.1.13.10 ity of [place] 4.2.7.2.686 [facility] [id number] [facility] 403 Branch 2022-09-17 2022-09-18 Outpatient X MAURO [facility] [id number] Univers 00:49:00 11:15:00 JAYCE riddhikely [facility] 2022-09-17 2022-09-18 Hospital Nguyễn [facility] 1.2.840.1 14 [id number] Univers 00:49:00 11:15:00 Encounter Tyloremilia Jayce OWEN 350.1.13.10 ity of [place] 4.2.7.2.686 [facility] [id number] [address] 2022-09-06 2022-09-06 Hyacinth Pacheco [facility] 1.2.840.114 [id number] Univers 00:00:00 00:00:00 [facility] 350.1.13.10 it y of [place] 4.2.7.2.686 Humberto as PAUL?BLEA [id number] [address] MEDICAL OFFICE [facility] 2022-08-20 2022-08-20 Emergency X IVÁN Osiris [facility] ERT [id number] Univers 17:34:00 20:40:[address] [facility] 2022-08-20 2022-08-20 Emergency Osiris Smith [facility] 1.2.840.114 [id number] Univers 17:34:00 20:40:00 Nancy DUNDEE 350.1.13.10 i ty of [place] [id number] [facility] 0[address] [place] 2022-07-26 2022-07-26 Telephone [facility] 1.2.332.798 [id number] Univers 00:00:00 00:00:00 Neo HEALTH 350.1.13.10 it y [facility] 4.2.7.2.686 Humberto as PAUL?BLEA [phone] [address] OFFICE [facility] 2022-07-12 2022-07-12 Telephone [facility] 1.2.840.114 [id number] Univers 00:00:00 00:00:00 Simon HEALTH 350.1.13.10 it y of [place] [facility] 4.2.7.2.686 Humberto as PAUL?BLEA [id number] [address] MEDICAL OFFICE [facility] 2022-06-30 2022-06-30 Nurse ANAT May 1.2.840.114 [id number] Univers 00:00:00 00:00:00 Triage Imtiaz HUSAIN 350.1.13.10 it y of HOSPITAL 4.2.7.2.686 Humberto as [id number] [facility] 0[address] [place] 2022-06-30 2022-06-30 Nurse Ainsley [facility] 1.2.840.114 [id number] Univers 00:00:00 00:00:00 Triage Betty HEALTH 350.1.13.10 it y of [place] 4.2.7.2.686 Humberto as PAUL?BLEA [id number] [address] OFFICE [facility] 2022-05-29 2022-05-29 [facility] ERT [id number] Univers 03:06:00 05:45:00 WILLA beckford [facility] 2022-05-29 2022-05-29 [facility] 1.2.930.997 [id number] Univers 03:06:00 05:45:00 Willa [facility] 350.1.13.10 ity of [place] [id number] [address] 2022-05-23 2022-05-23 Outpatient R ABDON [facility] [id number] Univers 13:00:00 13:41:20 ANNEMARIE beckford [facility] 2022-05-23 2022-05-23 Office [facility] 1.2.840.114 [id number] Univers 13:00:00 13:41:20 Visit Annemarie HEALTH 350.1.13.10 it y of [place] 4.2.7.2.686 H[place]to as PAUL?BLEA [id number] [address] OFFICE [facility] 2022-05-22 2022-05-22 Telephone [facility] 1.2.185.754 [id number] Univers 00:00:00 00:00:00 Betty HEALTH 350.1.13.10 it y of [place] 4.2.7.2.686 Humberto as PAUL?BLEA [id number] [address] OFFICE [facility] 2022-04-29 2022-04-29 Refill [facility] 1.2.840.114 [id number] Univers 00:00:00 00:00:00 Neo HEALTH 350.1.13.10 it y of [place] 4.2.7.2.686 Humberto as PAUL?BLEA [id number] [address] OFFICE [facility] 2022-04-28 2022-04-28 Telephone [facility] 1.2.074.537 [id number] Univers 00:00:00 00:00:00 Neo HEALTH 350.1.13.10 it y of [place] 4.2.7.2.686 Humberto as PAUL?BLEA [id number] Nm markos SOSA[address] MEDICAL OFFICE [facility] 2022-04-24 2022-04-24 Refkelly [facility]MEMORIAL [facility] 1.2.840.114 [id number] Univers 00:00:00 00:00:00 Neo HEALTH 350.1.13.10 it y of [place] 4.2.7.2.686 Humberto as PAUL?BLEA [id number] [address] OFFICE [facility] 2022-01-23 2022-01-23 Refkelly [facility] 1.2.840.114 [id number] Univers 00:00:00 00:00:00 Betty HEALTH 350.1.13.10 it y of [place] 4.2.7.2.686 Humberto as PAUL?BLEA [id number] [facility] SOSA[address] OFFICE [facility] 2022-01-19 2022-01-19 [facility] 1.2.840.114 [id number] Univers 00:00:00 00:00:00 Betty HEALTH 350.1.13.10 it y of [place] 4.2.7.2.686 Humberto as PAUL?BLEA [id number] [address] OFFICE [facility] 2021-10-19 2021-10-19 [facility] 1.2.840.114 [id number] Univers 00:00:00 00:00:00 Betty HEALTH 350.1.13.10 it y of [place] 4.2.7.2.686 Humberto as PAUL?BLEA [id number] [facility] SHEILA[address] OFFICE [facility] 2021-10-19 2021-10-19 [place] [facility] 1.2.410.955 [id number] Univers 00:00:00 00:00:00 Betty HEALTH 350.1.13.10 it y of [place] 4.2.7.2.686 H[place]to as PAUL?BLEA [phone] [address] OFFICE [facility] 2021-10-14 2021-10-14 Patient Areli Lorenzana CARLIE 1.2.840.114 [id number] Univers 00:00:00 00:00:00 Outreach E YOUSSEF 350.1.13.10 i ty [place] [id number] [address] 2021-08-08 2021-08-08 Patient Areli Lorenzana CARLIE 1.2.840.114 [id number] Univers 00:00:00 00:00:00 Outreach E YOUSSEF 350.1.13.10 i ty [place] [id number] [address] 2021-08-01 2021-08-01 Office [facility] 1.2.840.114 [id number] Univers 11:00:00 11:59:38 Visit Betty HEALTH 350.1.13.10 it y of [place] 4.2.7.2.686 Humberto as PAUL?BLEA [id number] [address] MEDICAL OFFICE BUILDING 2021-08-01 2021-08-01 Outpatient En SCHMITZ [facility] [id number] Univers 11:00:00 11:59:38 BETTY shakeel [facility] 2021-08-01 2021-08-01 Outpatient En SCHMITZ [facility] [id number] Univers 11:00:00 11:00:00 BETTY shakeel [facility] 2021-07-28 2021-07-28 Transition CARLIE Song 1.2.840.114 [id number] Univers 00:00:00 00:00:00 of Care Ashlee YOUSSEF 350.1.13.10 [place] [id number] [facility] [address] 2021-07-12 2021-07-27 Hospital Elsie Ramos [facility] 1.2.840.1 14 [id number] Univers 03:59:00 12:44:00 Encounter Kamlesh Jeong 350.1.13.10 ity of [place] 4.2.7.2.686 [place]ERT[place] [id number] [facility] [address] ([facility]) 2021-07-27 2021-07-27 Transition CARLIE oSng 1.2.840.114 [id number] Univers 00:00:00 00:00:00 of Care Ashlee YOUSSEF 350.1.13.10 ity of [place].2.7.2.[place] [id number] [facility] [address] 2021-07-26 2021-07-26 Surgery Ratna, [facility] 1.2.840.114 [id number] Univers 07:15:00 08:19:00 Onel C HEALTH 350.1.13.10 it y of [place].2.[place] [id number] [address] ([facility]) 2021-07-22 2021-07-22 Surgery Fuentes Cabrera [facility] 1.2.840.114 [id number] Univers 12:00:00 13:54:00 HEALTH 350.1.13.10 it y of [place].2.[place] [id number] [address] ([facility]) 2021-07-11 2021-07-12 Emergency X RUSTY SANCHEZ [facility] ERT [id number] Univers 23:33:00 00:16:00 RUSTY SANCHEZ ity [facility] 2021-07-11 2021-07-12 Emergency X [facility] ERT [id number] Univers 23:33:00 00:16:[address] [facility] 2021-07-11 2021-07-12 Emergency TRAUMA 1.2.393.870 [id number] Univers 23:33:00 00:16:00 [place] 350.1.13.10 it y [place].7.2.[place] [id number] [place] [address] Branch 2021-07-11 2021-07-12 Emergency X DANIEL RUSTY [facility] ERT 10 [id number] Univers 23:33:00 00:16:00 RUSTY SANCHEZ ity [facility] 2021-06-13 2021-06-13 Office Andrew [facility] 1.2.840.114 [id number] Univers 14:15:00 14:30:00 Visit [facility] 350.1.13.10 it y of [place] 4.2.7.2.686 Humberto as PAUL?BLEA [phone] Nm markos GUO [address] [place] [address] MEDICAL OFFICE BUILDING 2021-06-13 2021-06-13 Outpatient R ANDREW [facility] [id number] Univers 14:15:00 14:15:00 NEO kely [facility] 2021-06-07 2021-06-07 Emergency X FAIFTIKHAR, [facility] ERT [id number] Univers 12:30:00 18:32:00 CHASITY ity [facility] 2021-06-07 2021-06-07 Emergency Faulconer, TRAUMA 1.2.840.114 [id number] Univers 12:30:00 18:32:00 [facility] 350.1.13.10 it [place] [id number] [facility] [address] [place] 2021-05-21 2021-05-21 Emergency X [facility] ERT [id number] Univers 05:31:00 05:54:00 NGUYỄN hannonkely [facility] 2021-05-21 2021-05-21 Emergency [facility] 1.2.570.343 [id number] Univers 05:31:00 05:54:00 Nguyễn OWEN 350.1.13.10 i ty [facility] 4.2.7.2.[address] [facility] [id number] [facility] [address] [place] 2021-05-21 2021-05-21 Orders Doctor ANAT 1.2.840.114 [id number] Univers 00:00:00 00:00:00 Only Unassigned, RODRIGUE 350.1.13.10 ity of [place] [facility] 4.2.7.2.686 Humberto as [id number] [facility] [address] [place] 2021-04-20 2021-04-20 Outpatient R ARCHANA [facility] [id number] Univers 11:40:00 23:59:00 SHERITA beckford [facility] 2021-04-20 2021-04-20 [facility] 1.2.840.114 [id number] Univers 11:40:00 23:59:00 Encounter Sherita Lutz [facility] 350.1.13.10 ity of [place] 4.2.7.2.686 Humberto as PAUL?BLEA [id number] Me markos GUO [address] [place] MEDICAL OFFICE BUILDING 2021-04-20 2021-04-20 Office [facility] 1.2.840.114 [id number] Univers 12:45:00 13:00:00 Visit Neo [facility]Place 350.1.13.10 it y of [place] 4.2.7.2.686 Humberto as PAUL?BLEA [id number] Nm markos GUO [address] [place] MEDICAL OFFICE [facility] 2021-04-20 2021-04-20 Out[facility] [id number] Univers 12:45:00 12:45:00 NEO beckford [facility] 2021-04-20 2021-04-20 Environmental Management Specialist Champ, Nathanael Ohara [facility] 1.2.840.1 14 [id number] Univers 12:00:00 12:15:00 Visit Archana Sherita Lutz HEALTH 350.1.13.10 ity of [place] 4.2.7.2.686 Humberto as PAUL?BLEA [id number] Nm markos GUO [address] [facility] OFFICE [facility] 2021-04-20 2021-04-20 Office [facility] 1.2.840.114 [id number] Univers 11:00:00 11:32:48 Visit Sherita Lutz HEALTH 350.1.13.10 i ty of [place] 4.2.7.2.686 Humberto as PAUL?BLEA [id number] Nm markos GUO [address] [place] MEDICAL OFFICE [facility] 2021-04-20 2021-04-20 Outpatient R ARCHANA [facility] [id number] Univers 11:00:00 11:32:48 SHERITA beckford [facility] 2021-02-28 2021-02-28 Patient Shashi [facility] 1.2.840.114 [id number] Univers 00:00:00 00:00:00 Outreach Ewa Barbara HEALTH 350.1.13.10 i ty of [place] 4.2.7.2.686 Humberto as PUAL?BLEA [id number] Nm markos GUO 0[address] [facility] OFFICE [facility] 2021-02-24 2021-02-24 Environmental Management Specialist Alissa, Adc Lab Main [facility] 1.2.8 40.114 [id number] Univers 16:05:54 16:20:54 Visit Negar Schmitzthinelda ASKEWCHICHI 350.1.13.10 ity of [place] 4.2.7.2.[place] [phone] [address] 2021-02-24 2021-02-24 Outpatient R AINSLEY [facility] [id number] Univers 16:00:00 16:00:00 BETTY beckford [facility] 2021-02-24 2021-02-24 Outpatient R AINSLEY [facility] [id number] Univers 15:00:00 15:32:21 BETTY beckford [facility] 2021-02-24 2021-02-24 [facility] 1.2.840.114 [id number] Univers 14:58:18 15:32:21 Visit Betty GARNICA 350.1.13.10 it y of [place] 4.2.7.2.686 Humberto as PAUL?BLEA [phone] [address] MEDICAL OFFICE [facility] 2021-02-24 2021-02-24 Outpatient R AINSLEY [facility] [id number] Univers 15:00:00 15:00:00 BETTY beckford [facility] 2021-02-24 2021-02-24 Orders Doctor ANAT 1.2.840.114 [id number] Univers 00:00:00 00:00:00 Only Unassigned, RODRIGUE 350.1.13.10 ity of [place] [facility] 4.2.7.2.686 Humberto as [phone] [address] 2021-02-21 2021-02-21 [facility] 1.2.840.114 [id number] Univers 00:00:00 00:00:00 Betty Garnica 350.1.13.10 it y of [place] 4.2.7.2.686 Humberto as Paul?Blea [phone] [address] Office [facility] 2021-02-18 2021-02-18 [facility] 1.2.840.114 [id number] Univers 00:00:00 00:00:00 Betty [facility] 350.1.13.10 it y of [place] 4.2.7.2.686 Humberto as Paul?Blea [phone] [address] Medical Office Building 2021-01-20 2021-01-20 Letter ANAT Cho 1.2.840.114 [id number] Univers 00:00:00 00:00:00 (Out) Ashlee HUSAIN 350.1.13.[address] [facility] 4.2.7.2.686 [place] as [phone] [address] 2021-01-19 2021-01-19 Laboratory Only, Adc Test [facility] 1.2.840. 114 [id number] Univers 15:56:31 16:11:31 Only Michael Sanchez 350.1.13.10 ity of [place] 4[place].7.2.[place] [phone] [facility] [address] 2021-01-19 2021-01-19 Outpatient R DANIEL [facility] [id number] Univers 16:00:00 16:00:00 MICHAEL ity [facility] 2021-01-18 2021-01-18 [facility] [id number] Univers 13:00:00 13:00:00 EBTTY itkely [facility] 2021-01-11 2021-01-11 [facility] 1.2.840.114 [id number] Univers 14:57:17 15:33:27 Visit [facility] 350.1.13.10 it y of [place] 4.2.7.2.686 Humberto as Paul?Blea [phone] [address] Medical Office [facility] 2021-01-11 2021-01-11 [facility] [id number] Univers 15:00:00 15:00:00 BETTY itkely [facility] 2021-01-11 2021-01-11 Orders Doctor COPPOLA 1.2.840.114 [id number] Univers 00:00:00 00:00:00 Only Unassigned, RODRIGUE 350.1.13.10 ity [place] [facility] 4.2.7.2.686 Humberto as [phone] [facility] [address] [place] 2021-01-11 2021-01-11 Orders Doctor ANAT 1.2.840.114 [id number] Univers 00:00:00 00:00:00 Only Unassigned, RODRIGUE 350.1.13.10 ity [place] [facility] 4.2.7.2.686 Humberto as [phone] [facility] [address] 2021-01-07 2021-01-07 Urgent Edwina Ferraro [facility] 1.2.840.11 [id number] Univers 15:07:29 16:49:47 Care Unknown, Attending Health 350.1.13.10 ity [facility] 4.2.7.2.686 Humberto as Paul?Blea [phone] [address] Medical Office Building 2021-01-07 2021-01-07 Outpatient R UNKNOWN, [facility] [id number] Univers 16:20:00 16:20:00 ATTENDING ity [facility] 2020-07-11 2020-07-11 Telemedici Mandie Duff [facility] 1 .2.840.114 [id number] Univers 13:08:00 13:38:00 ne Visit Unknown, Attending [facility] 350.1.13.1 [address] [place] [address].2.7.2.686 [facility] [phone] [facility] Primary [facility] 2020-07-11 2020-07-11 Outpatient R UNKNOWN, [facility] [id number] Univers 13:30:00 13:30:[address] [facility] 2020-07-11 2020-07-11 Nurse ANAT [place] 1.2.840.114 [id number] Univers 00:00:00 00:00:00 Triage Christiana ESCALANTEY 350.1.13.[address] [facility] 4.2.7.2.686 Humberto as [phone] [facility] [address] 2020-07-10 2020-07-10 Patient Sony [facility] 1.2.840.114 [id number] Univers 00:00:00 00:00:00 Outreach Gonzalo PRIMARY 350.1.13.10 i ty of [facility] 4.2.7.2.686 [facility] PAVILLION [phone] Nm dical [address] [place] 2019-08-10 2019-08-10 Outpatient R NEO [facility] [id number] Univers 15:00:00 15:00:00 EJ [facility] 2019-08-08 2019-08-09 Emergency [facility] 1.2.516.648 [id number] Univers 21:24:00 00:05:00 Elsie Owen 350.1.13.10 i ty of [place] 4.2.7.2.686 [facility] [phone] [address] 2019-08-08 2019-08-09 Emergency [facility] [id number] Univers 21:24:00 00:05:00 ELSIE [facility] 2019-07-21 2019-07-21 Letter [facility] 1.2.840.114 [id number] Univers 00:00:00 00:00:00 (Out) Sherita Garnica 350.1.13.10 i ty of [place] 4.2.7.2.686 Humberto as Professio [phone] Nm dical [facility] [address] [place] Office Building One 2019-07-16 2019-07-16 [facility] 1.2.128.827 [id number] Univers 09:50:52 13:49:00 Matthew Owen 350.1.13.10 i ty of [place] 4.2.7.2.686 [facility] [phone] [address] 2019-07-16 2019-07-16 Emergency [facility] [id number] Univers 09:50:52 13:49:00 MATTHEW [facility] 2019-07-16 2019-07-16 Outpatient R ARCHANA [facility] [id number] Univers 08:40:00 13:05:28 SHERITA beckford [facility] 2019-07-16 2019-07-16 Office Pob1, Acute Care Clinic [facility] 1. 2.840.114 [id number] Univers 08:39:54 08:59:54 [facility] 4.2.7.2.686 Humberto as Chin [phone] Nm dical [address] Office Building One 2019-07-16 2019-07-16 Outpatient R [facility] [id number] Univers 08:40:00 08:40:00 [facility] Results Test Description Test Time Test Comments Results Result Comments Source TROPONIN I 2022-11-29 04:22:56 Test Item Value Reference Range Interpretation Comme nts TROPONIN I (test code = 0476078943) 0.003 ng/mL <=0.034 ROSEANN (test code = ROSEANN) [...] biotin. Lab Interpretation (test code = Normal 57415-8) [facility] [id number] 04:20:15 Test Item Value Reference Range Interpretation Comments NT-proBNP (test code = 06831-3) 33 pg/mL <=125 Lab Interpretation (test code = Normal 37539-3) [facility] ([id number])2022-11-29 04:11:56 Test Item Value Reference Range Interpretation Comments NA (test code = 137 mmol/L 135-145 8008091558) K (test code = 3.9 mmol/L 3.5-5.0 3942651447) CL (test code = 100 mmol/L 98-108 5631853254) CO2 TOTAL (test code = 32 mmol/L 23-31 H 1138189451) AGAP (test code = 5 2-16 6393969449) BUN (test code = 3 mg/dL 7-23 L 4946817524) GLUCOSE (test code = 107 mg/dL 70-110 8138506027) CREATININE (test code = 0.82 mg/dL 0.60-1.25 0142879820) TOTAL BILI (test code = 0.4 mg/dL 0.1-1.8 8850331141) CALCIUM (test code = 8.8 mg/dL 8.6-10.6 4164185813) T PROTEIN (test code = 6.5 g/dL 6.3-8.2 7366726443) ALBUMIN (test code = 3.7 g/dL 3.5-5.0 5275670408) ALK PHOS (test code = 83 U/L 34-122 8078590121) ALTv (test code = 15 U/L 5-50 1742-6) AST(SGOT) (test code = 17 U/L 13-40 8934350782) eGFR (test code = 95.5 mL/min/1.73m2 2744035949) ROSEANN (test code = ROSEANN) Association of [...] tests). Lab Interpretation Abnormal (test code = 89218-7) [facility] WITH [id number] 03:56:30 Test Item Value Reference Range Interpretation Comments WBC (test code = 9.85 See_Comment [Automated 6690-2) message] The sy stem which generated this result transmitted reference range : 4.20 - 10.70 10*3/?L. The reference range was not used to interpret this result as normal/abnormal . RBC (test code = 4.92 See_Comment [Automated 789-8) message] The sy stem which generated this result transmitted reference range : 4.26 - 5.52 10*6/?L. The reference range was not used to interpret this result as normal/abnormal . HGB (test code = 14.9 g/dL 12.2-16.4 718-7) HCT (test code = 44.3 % 38.4-49.3 4544-3) MCV (test code = 90.0 fL 81.7-95.6 787-2) MCH (test code = 30.3 pg 26.1-32.7 785-6) MCHC (test code = 33.6 g/dL 31.2-35.0 786-4) RDW-SD (test code = 47.6 fL 38.5-51.6 35542-4) RDW-CV (test code = 14.5 % 12.1-15.4 788-0) PLT (test code = 266 See_Comment [Automated 777-3) message] The sy stem which generated this result transmitted reference range : 150 - 328 10*3/ ?L. The reference r jasmin was not used to interpret this result as normal/abnormal . MPV (test code = 9.6 fL 9.8-13.0 L 69986-0) NRBC/100 WBC (test 0.0 See_Comment [Automat ed code = 4763559880) message] The system which generated this result transmitted reference range : 0.0 - 10.0 /100 WBCs. The refer ence range was not u sed to interpret th is result as normal/abnormal . NRBC x10^3 (test code See_Comment [Auto mated = 1777841716) message] The s ystem which generated this result transmitted reference range : 10*3/?L. The reference range was not used to interpret this result as normal/abnormal . GRAN MAT (NEUT) % 68.4 % (test code = 770-8) IMM GRAN % (test code 1.50 % = 1869537856) LYMPH % (test code = 19.4 % 736-9) MONO % (test code = 7.3 % 5905-5) EOS % (test code = 2.6 % 713-8) BASO % (test code = 0.8 % 706-2) GRAN MAT x10^3(ANC) 6.73 10*3/uL 1.99-6.95 (test code = 5644824972) IMM GRAN x10^3 (test 0.15 10*3/uL 0.00-0.06 H code = 7405130828) LYMPH x10^3 (test code 1.91 10*3/uL 1.09-3.23 = 731-0) MONO x10^3 (test code 0.72 10*3/uL 0.36-1.02 = 742-7) EOS x10^3 (test code = 0.26 10*3/uL 0.06-0.53 711-2) BASO x10^3 (test code 0.08 10*3/uL 0.01-0.09 = 704-7) Lab Interpretation Abnormal (test code = 18718-9) [facility] [id number] 07:38:27 Test Item Value Reference Range Interpretation Comments TROPONIN I (test code = 0.003 ng/mL <=0.034 9728388208) ROSEANN (test code = ROSEANN) Reference (Normal) [...] biotin. Lab Interpretation Normal (test code = 58641-2) [facility] (15143)2022-11-13 07:26:46 Test Item Value Reference Range Interpretation Comments NA (test code = 135 mmol/L 135-145 1455246385) K (test code = 4.2 mmol/L 3.5-5.0 9204182117) CL (test code = 100 mmol/L 98-108 2378598899) CO2 TOTAL (test code = 27 mmol/L 23-31 5053879008) AGAP (test code = 8 2-16 3151845030) BUN (test code = 6 mg/dL 7-23 L 1585691524) GLUCOSE (test code = 127 mg/dL 70-110 H 6611750327) CREATININE (test code = 0.79 mg/dL 0.60-1.25 5561907061) TOTAL BILI (test code = 0.5 mg/dL 0.1-1.3 6258391101) CALCIUM (test code = 8.5 mg/dL 8.6-10.6 L 0352644825) T PROTEIN (test code = 6.1 g/dL 6.3-8.2 L 3531851022) ALBUMIN (test code = 3.5 g/dL 3.5-5.0 3934534403) ALK PHOS (test code = 105 U/L 34-122 9080325002) ALTv (test code = 14 U/L 5-50 1742-6) AST(SGOT) (test code = 19 U/L 13-40 4912439497) eGFR (test code = 99.7 mL/min/1.73m2 3728021754) ROSEANN (test code = ROSEANN) Association of [...] tests). Lab Interpretation Abnormal (test code = 80348-1) [facility] WITH [id number] 06:58:24 Test Item Value Reference Range Interpretation Comments WBC (test code = 8.99 See_Comment [Automated 7754-2) message] The sy stem which generated this result transmitted reference range : 4.20 - 10.70 10*3/?L. The reference range was not used to interpret this result as normal/abnormal . RBC (test code = 4.86 See_Comment [Automated 264-8) message] The sy stem which generated this result transmitted reference range : 4.26 - 5.52 10*6/?L. The reference range was not used to interpret this result as normal/abnormal . HGB (test code = 14.8 g/dL 12.2-16.4 718-7) HCT (test code = 44.0 % 38.4-49.3 4544-3) MCV (test code = 90.5 fL 81.7-95.6 787-2) MCH (test code = 30.5 pg 26.1-32.7 785-6) MCHC (test code = 33.6 g/dL 31.2-35.0 786-4) RDW-SD (test code = 48.1 fL 38.5-51.6 92779-9) RDW-CV (test code = 14.5 % 12.1-15.4 788-0) PLT (test code = 294 See_Comment [Automated 777-3) message] The sy stem which generated this result transmitted reference range : 150 - 328 10*3/ ?L. The reference r jasmin was not used to interpret this result as normal/abnormal . MPV (test code = 9.7 fL 9.8-13.0 L 58271-6) NRBC/100 WBC (test 0.0 See_Comment [Automat ed code = 2791432054) message] The system which generated this result transmitted reference range : 0.0 - 10.0 /100 WBCs. The refer ence range was not u sed to interpret th is result as normal/abnormal . NRBC x10^3 (test code See_Comment [Auto mated = 6736550184) message] The s ystem which generated this result transmitted reference range : 10*3/?L. The reference range was not used to interpret this result as normal/abnormal . GRAN MAT (NEUT) % 72.3 % (test code = 770-8) IMM GRAN % (test code 0.90 % = 8802700780) LYMPH % (test code = 16.6 % 736-9) MONO % (test code = 6.1 % 5905-5) EOS % (test code = 3.1 % 713-8) BASO % (test code = 1.0 % 706-2) GRAN MAT x10^3(ANC) 6.50 10*3/uL 1.99-6.95 (test code = 8992347133) IMM GRAN x10^3 (test 0.08 10*3/uL 0.00-0.06 H code = 2415608321) LYMPH x10^3 (test code 1.49 10*3/uL 1.09-3.23 = 731-0) MONO x10^3 (test code 0.55 10*3/uL 0.36-1.02 = 742-7) EOS x10^3 (test code = 0.28 10*3/uL 0.06-0.53 711-2) BASO x10^3 (test code 0.09 10*3/uL 0.01-0.09 = 704-7) Lab Interpretation Abnormal (test code = 43626-2) [facility] [id number] 13:09:07 Test Item Value Reference Range Interpretation Comments TROPONIN I (test code = 0.001 ng/mL <=0.034 6978206326) ROSEANN (test code = ROSEANN) Reference (Normal) [...] biotin. Lab Interpretation Normal (test code = 92214-6) [facility] [id number] 13:05:46 Test Item Value Reference Range Interpretation Comments NT-proBNP (test code = 64 pg/mL <=125 4537157633) ROSEANN (test code = ROSEANN) Biotin has been reported to cause a negative bias, interpret results relative to patient's use of biotin. Lab Interpretation (test Normal code = 32700-8) [facility] (16390)2022-10-15 12:58:28 Test Item Value Reference Range Interpretation Comments NA (test code = 140 mmol/L 135-145 8491576772) K (test code = 4.4 mmol/L 3.5-5.0 0921630003) CL (test code = 103 mmol/L 98-108 6609943880) CO2 TOTAL (test code = 29 mmol/L 23-31 9905925133) AGAP (test code = 8 2-16 3771277373) BUN (test code = 6 mg/dL 7-23 L 6367340485) GLUCOSE (test code = 114 mg/dL 70-110 H 6742275632) CREATININE (test code = 0.85 mg/dL 0.60-1.25 6560497562) TOTAL BILI (test code = 0.6 mg/dL 0.1-1.4 6094200717) CALCIUM (test code = 9.2 mg/dL 8.6-10.6 6195681376) T PROTEIN (test code = 6.9 g/dL 6.3-8.2 0580208974) ALBUMIN (test code = 4.1 g/dL 3.5-5.0 8858631426) ALK PHOS (test code = 101 U/L 34-122 2443274210) ALTv (test code = 13 U/L 5-50 1742-6) AST(SGOT) (test code = 18 U/L 13-40 3744442871) eGFR (test code = 91.6 mL/min/1.73m2 0539510628) ROSEANN (test code = ROSEANN) Association of [...] tests). Lab Interpretation Abnormal (test code = 89203-1) [facility] WITH [id number] 12:41:49 Test Item Value Reference Range Interpretation Comments WBC (test code = 6.93 See_Comment [Automated message] 6690-2) The system [employer] generated this result transmitted ref erence range: 4.20 - 1 0.70 10*3/?L. The re ference range was not u sed to interpret this result as normal/abnor mal. RBC (test code = 5.28 See_Comment [Automated message] 789-8) The system [employer] generated this result transmitted ref erence range: [...] RDW-SD (test code 47.8 fL 38.5-51.6 = 68646-0) RDW-CV (test code 14.4 % 12.1-15.4 = 788-0) PLT (test code = 310 See_Comment [Automated message] 377-3) The system [employer] generated this result transmitted ref erence range: 150 - 32 8 10*3/?L. The re ference range was not u sed to interpret this result as normal/abnor mal. MPV (test code = 10.0 fL 9.8-13.0 46315-4) NRBC/100 WBC (test 0.0 See_Comment [Automat ed message] code = 9429936996) The [employer] which generated this result transmitted ref erence range: 0.0 - 10 .0 /100 WBCs. The refer ence range was not u sed to interpret this result as normal/abnor mal. NRBC x10^3 (test See_Comment [Automated message] code = 6175060687) The syste m which generated this result transmitted ref erence range: 10*3/?L. The reference range was not used to interpr et this result as normal/abnormal . GRAN MAT (NEUT) % 65.8 % (test code = 770-8) IMM GRAN % (test 0.60 % code = 7641645940) LYMPH % (test code 19.0 % = 736-9) MONO % (test code 8.4 % = 5905-5) EOS % (test code = 5.2 % 713-8) BASO % (test code 1.0 % = 706-2) GRAN MAT 4.56 10*3/uL 1.99-6.95 x10^3(ANC) (test code = 4619279779) IMM GRAN x10^3 0.04 10*3/uL 0.00-0.06 (test code = 4301173114) LYMPH x10^3 (test 1.32 10*3/uL 1.09-3.23 code = 731-0) MONO x10^3 (test 0.58 10*3/uL 0.36-1.02 code = 742-7) EOS x10^3 (test 0.36 10*3/uL 0.06-0.53 code = 711-2) BASO x10^3 (test 0.07 10*3/uL 0.01-0.09 code = 704-7) [facility]2023-[facility]-22 15:52:06 Test Item Value Reference Range Interpretation Comments Procalcitonin (test 0.10 ng/mL <=0.07 H code = 1504997723) ROSEANN (test code = ROSEANN) INTERPRETATION OF [...] lung abscess/empyema. For further information please refer to:[email or web address] Lab Interpretation Abnormal (test code = 60463-2) [facility] with [id number] 10:31:18 Test Item Value Reference Range Interpretation Comments WBC (test code = 16.07 See_Comment H [Automated 6690-2) message] The system which generated this result transmit sarah reference range : 4.20 - 10.70 10*3/?L. The reference range was not used to interpret this result as normal/abnormal . RBC (test code = 4.80 See_Comment [Automated 789-8) message] The system which [...] RDW-SD (test code = 43.8 fL 38.5-51.6 64281-0) RDW-CV (test code = 13.4 % 12.1-15.4 788-0) PLT (test code = 276 See_Comment [Automated 777-3) message] The system which generated this result transmit sarah reference range : 150 - 328 10*3/ ?L. The reference range was not u sed to interpret th is result as normal/abnormal . MPV (test code = 10.4 fL 9.8-13.0 60435-9) NRBC/100 WBC (test 0.0 See_Comment [Automat ed code = 5899663836) message] The system which generated this result transmit sarah reference range : 0.0 - 10.0 /100 WBCs. The reference range was not used to interpret this result as normal/abnormal . NRBC x10^3 (test code See_Comment [Auto mated = 4546307426) message] The system which generated this result transmit sarah reference range : 10*3/?L. The reference range was not used to interpret this result as normal/abnormal . GRAN MAT (NEUT) % 91.0 % (test code = 770-8) IMM GRAN % (test code 0.70 % = 3681453858) LYMPH % (test code = 3.9 % 736-9) MONO % (test code = 4.2 % 5905-5) EOS % (test code = 0.0 % 713-8) BASO % (test code = 0.2 % 706-2) GRAN MAT x10^3(ANC) 14.64 10*3/uL 1.99-6.95 H (test code = 3856821917) IMM GRAN x10^3 (test 0.11 10*3/uL 0.00-0.06 H code = 5635575440) LYMPH x10^3 (test code 0.62 10*3/uL 1.09-3.23 L = 731-0) MONO x10^3 (test code 0.67 10*3/uL 0.36-1.02 = 742-7) EOS x10^3 (test code = 0.06-0.53 L 711-2) BASO x10^3 (test code 0.03 10*3/uL 0.01-0.09 = 704-7) Lab Interpretation Abnormal (test code = 06614-1) [facility] Metabolic Panel (NA, K, CL, CO2, GLUCOSE, BUN, CREATININE, CA)2022-09-18 09:42:12 Test Item Value Reference Range Interpretation Comments NA (test code = 138 mmol/L 135-145 3242552172) K (test code = 4.3 mmol/L 3.5-5.0 6100780779) CL (test code = 102 mmol/L 98-108 6178124241) CO2 TOTAL (test code = 29 mmol/L 23-31 6972660923) AGAP (test code = 7 2-16 4578715482) BUN (test code = 17 mg/dL 7-23 0500587933) GLUCOSE (test code = 129 mg/dL 70-110 H 4841156632) CREATININE (test code = 0.68 mg/dL 0.60-1.25 0059144476) CALCIUM (test code = 9.0 mg/dL 8.6-10.6 2640421670) eGFR (test code = 118.5 mL/min/1.73m2 5278620824) ROSEANN (test code = ROSEANN) Association of [...] tests). Lab Interpretation Abnormal (test code = 50714-6) [facility]. METABOLIC PANEL (26258)2022-09-17 07:05:43 Test Item Value Reference Range Interpretation Comments NA (test code = 134 mmol/L 135-145 L 5256293425) K (test code = 4.4 mmol/L 3.5-5.0 9064672035) CL (test code = 98 mmol/L 98-108 9460790856) CO2 TOTAL (test code = 26 mmol/L 23-31 9638515038) AGAP (test code = 10 2-16 4069290332) BUN (test code = 7 mg/dL 7-23 1317525121) GLUCOSE (test code = 135 mg/dL 70-110 H 9818442248) CREATININE (test code = 0.81 mg/dL 0.60-1.25 0022387865) TOTAL BILI (test code = 1.1 mg/dL 0.1-1.3 4419861513) CALCIUM (test code = 8.6 mg/dL 8.6-10.6 7343849873) T PROTEIN (test code = 6.5 g/dL 6.3-8.2 5661931633) ALBUMIN (test code = 3.9 g/dL 3.5-5.0 7656420466) ALK PHOS (test code = 101 U/L 34-122 0942734947) ALTv (test code = 12 U/L 5-50 1742-6) AST(SGOT) (test code = 16 U/L 13-40 1656812624) eGFR (test code = 96.9 mL/min/1.73m2 7508088888) ROSEANN (test code = ROSEANN) Association of [...] tests). Lab Interpretation Abnormal (test code = 02811-7) [facility] [id number] 06:41:43 Test Item Value Reference Range Interpretation Comments TROPONIN I (test code = 0.016 ng/mL <=0.034 9401926563) ROSEANN (test code = ROSEANN) Reference (Normal) [...] biotin. Lab Interpretation Normal (test code = 51302-3) [facility] [id number] 06:38:22 Test Item Value Reference Range Interpretation Comments NT-proBNP (test code = 85 pg/mL <=125 2556473177) ROSEANN (test code = ROSEANN) Biotin has been reported to cause a negative bias, interpret results relative to patient's use of biotin. Lab Interpretation (test Normal code = 91271-4) [facility] WITH [id number] 06:22:22 Test Item Value Reference Range Interpretation Comments WBC (test code = 14.22 See_Comment H [Automated 7471-2) message] The system which generated this result transmit sarah reference range : 4.20 - 10.70 10*3/?L. The reference range was not used to interpret this result as normal/abnormal . RBC (test code = 5.34 See_Comment [Automated 753-8) message] The system which generated this result transmit saarh reference range : 4.26 - 5.52 10*6/?L. [...] RDW-SD (test code = 44.7 fL 38.5-51.6 21490-4) RDW-CV (test code = 13.6 % 12.1-15.4 788-0) PLT (test code = 274 See_Comment [Automated 777-3) message] The system which generated this result transmit sarah reference range : 150 - 328 10*3/ ?L. The reference range was not u sed to interpret th is result as normal/abnormal . MPV (test code = 10.2 fL 9.8-13.0 83713-2) NRBC/100 WBC (test 0.0 See_Comment [Automat ed code = 6480387283) message] The system which generated this result transmit sarah reference range : 0.0 - 10.0 /100 WBCs. The reference range was not used to interpret this result as normal/abnormal . NRBC x10^3 (test code See_Comment [Auto mated = 8598871493) message] The system which generated this result transmit sarah reference range : 10*3/?L. The reference range was not used to interpret this result as normal/abnormal . GRAN MAT (NEUT) % 84.8 % (test code = 770-8) IMM GRAN % (test code 0.80 % = 1308192802) LYMPH % (test code = 7.0 % 736-9) MONO % (test code = 6.3 % 5905-5) EOS % (test code = 0.6 % 713-8) BASO % (test code = 0.5 % 706-2) GRAN MAT x10^3(ANC) 12.06 10*3/uL 1.99-6.95 H (test code = 1354812859) IMM GRAN x10^3 (test 0.11 10*3/uL 0.00-0.06 H code = 2561416361) LYMPH x10^3 (test code 0.99 10*3/uL 1.09-3.23 L = 731-0) MONO x10^3 (test code 0.90 10*3/uL 0.36-1.02 = 742-7) EOS x10^3 (test code = 0.09 10*3/uL 0.06-0.53 711-2) BASO x10^3 (test code 0.07 10*3/uL 0.01-0.09 = 704-7) Lab Interpretation Abnormal (test code = 87949-8) [facility] [id number] 23:40:13 Test Item Value Reference Range Interpretation Comments TROPONIN I (test code = 0.003 ng/mL <=0.034 5365663786) ROSEANN (test code = ROSEANN) Reference (Normal) [...] biotin. Lab Interpretation Normal (test code = 25372-0) [facility]ACT[facility]RM[facility] [id number] 23:35:31 Test Item Value Reference Range Interpretation Comments APTT Patient (test 41 See_Comment H [Automat ed code = 3173-2) message] The system which generated this result transmitted reference range : 23 - 38 Seconds . The reference range was not used to interpr et this result as normal/abnormal . ROSEANN (test code = ROSEANN) The [facility] patient population mean normal value for aPTT is 30 seconds. Lab Interpretation Abnormal (test code = 43194-7) [facility]Pro[facility] / [id number] 23:33:11 Test Item Value Reference Range Interpretation [...] tions. Lab Interpretation (test Normal code = 69198-3) [facility]. METABOLIC PANEL ([id number])2022-08-20 23:30:30 Test Item Value Reference Range Interpretation Comments NA (test code = 135 mmol/L 135-145 [id number]) K (test code = 4.3 mmol/L 3.5-5.0 4230123984) CL (test code = 99 mmol/L 98-108 7945274078) CO2 TOTAL (test code = 30 mmol/L 23-31 7850059928) AGAP (test code = 6 2-16 6274661570) BUN (test code = 5 mg/dL 7-23 L 4537733771) GLUCOSE (test code = 124 mg/dL 70-110 H 1027460833) CREATININE (test code = 0.86 mg/dL 0.60-1.25 6853890136) TOTAL BILI (test code = 0.6 mg/dL 0.1-1.3 5867696969) CALCIUM (test code = 9.1 mg/dL 8.6-10.6 8610345876) T PROTEIN (test code = 7.0 g/dL 6.3-8.2 8801077410) ALBUMIN (test code = 4.3 g/dL 3.5-5.0 5112137567) ALK PHOS (test code = 100 U/L 34-122 0013462135) ALTv (test code = 13 U/L 5-50 1742-6) AST(SGOT) (test code = 19 U/L 13-40 9438428864) eGFR (test code = 90.4 mL/min/1.73m2 8045295262) ROSEANN (test code = ROSEANN) Association of [...] tests). Lab Interpretation Abnormal (test code = 24076-3) [facility] 23:29:30 Test Item Value Reference Range Interpretation Comments LIPASE (test code = 3366880279) 53 U/L 0-220 Lab Interpretation (test code = Normal 29267-4) [facility] WITH [id number] 23:14:52 Test Item Value Reference Range Interpretation Comments WBC (test code = 9.92 See_Comment [Automated 1414-2) message] The sy stem which generated this result transmitted reference range : 4.20 - 10.70 10*3/?L. The reference range was not used to interpret this result as normal/abnormal . RBC (test code = 5.45 See_Comment [Automated 389-7) message] The sy stem which generated this [...] RDW-SD (test code = 43.0 fL 38.5-51.6 66039-4) RDW-CV (test code = 13.2 % 12.1-15.4 788-0) PLT (test code = 281 See_Comment [Automated 777-3) message] The sy stem which generated this result transmitted reference range : 150 - 328 10*3/ ?L. The reference r jasmin was not used to interpret this result as normal/abnormal . MPV (test code = 9.5 fL 9.8-13.0 L 89503-5) NRBC/100 WBC (test 0.0 See_Comment [Automat ed code = 8041053682) message] The system which generated this result transmitted reference range : 0.0 - 10.0 /100 WBCs. The refer ence range was not u sed to interpret th is result as normal/abnormal . NRBC x10^3 (test code See_Comment [Auto mated = 2418493054) message] The s ystem which generated this result transmitted reference range : 10*3/?L. The reference range was not used to interpret this result as normal/abnormal . GRAN MAT (NEUT) % 80.3 % (test code = 770-8) IMM GRAN % (test code 0.60 % = 6752888531) LYMPH % (test code = 9.3 % 736-9) MONO % (test code = 5.0 % 5905-5) EOS % (test code = 3.9 % 713-8) BASO % (test code = 0.9 % 706-2) GRAN MAT x10^3(ANC) 7.96 10*3/uL 1.99-6.95 H (test code = 4079900411) IMM GRAN x10^3 (test 0.06 10*3/uL 0.00-0.06 code = 1126361437) LYMPH x10^3 (test code 0.92 10*3/uL 1.09-3.23 L = 731-0) MONO x10^3 (test code 0.50 10*3/uL 0.36-1.02 = 742-7) EOS x10^3 (test code = 0.39 10*3/uL 0.06-0.53 711-2) BASO x10^3 (test code 0.09 10*3/uL 0.01-0.09 = 704-7) Lab Interpretation Abnormal (test code = 45186-8) [facility] METABOLIC PANEL (NA, K, CL, CO2, GLUCOSE, BUN, CREATININE, CA)2022-05-29 09:45:41 Test Item Value Reference Range Interpretation Comments NA (test code = 135 mmol/L 135-145 7164660271) K (test code = 4.0 mmol/L 3.5-5.0 3926078258) CL (test code = 98 mmol/L 98-108 5918253705) CO2 TOTAL (test code 29 mmol/L 23-31 = 3934514702) AGAP (test code = 2-16 6918614814) BUN (test code = 8 mg/dL 7-23 7038111548) GLUCOSE (test code = 95 mg/dL 70-110 4248377937) CREATININE (test code 0.91 mg/dL 0.60-1.25 = 6587609674) CALCIUM (test code = 9.0 mg/dL 8.6-10.6 0558705418) eGFR (test code = mL/min/1.73m2 3398641422) ROSEANN (test code = ROSEANN) Association of [...] or urine or abnormalities in imaging tests). [facility] WITH [id number] 09:27:03 Test Item Value Reference Range Interpretation Comments WBC (test code = See_Comment [Automated 6590-2) message] The sy stem which generated this result transmitted reference range : 4.20 - 10.70 10*3/?L. The reference range was not used to interpret this result as normal/abnormal . RBC (test code = See_Comment [Automated 789-8) message] The sy stem [...] RDW-SD (test code = 46.1 fL 38.5-51.6 99706-9) RDW-CV (test code = 13.8 % 12.1-15.4 788-0) PLT (test code = See_Comment [Automated 777-3) message] The sy stem which generated this result transmitted reference range : 150 - 328 10*3/ ?L. The reference r jasmin was not used to interpret this result as normal/abnormal . MPV (test code = 9.1 fL 9.8-13.0 L 58008-6) NRBC/100 WBC (test See_Comment [Automat ed code = 8935841345) message] The system which generated this result transmitted reference range : 0.0 - 10.0 /100 WBCs. The refer ence range was not u sed to interpret th is result as normal/abnormal . NRBC x10^3 (test code See_Comment [Auto mated = 4437950891) message] The s ystem which generated this result transmitted reference range : 10*3/?L. The reference range was not used to interpret this result as normal/abnormal . GRAN MAT (NEUT) % 75.8 % (test code = 770-8) IMM GRAN % (test code 0.50 % = 4106582480) LYMPH % (test code = 14.1 % 736-9) MONO % (test code = 6.4 % 5905-5) EOS % (test code = 2.3 % 713-8) BASO % (test code = 0.9 % 706-2) GRAN MAT x10^3(ANC) 4.94 10*3/uL 1.99-6.95 (test code = 8823201358) IMM GRAN x10^3 (test 0.03 10*3/uL 0.00-0.06 code = 6934945053) LYMPH x10^3 (test code 0.92 10*3/uL 1.09-3.23 L = 731-0) MONO x10^3 (test code 0.42 10*3/uL 0.36-1.02 = 742-7) EOS x10^3 (test code = 0.15 10*3/uL 0.06-0.53 711-2) BASO x10^3 (test code 0.06 10*3/uL 0.01-0.09 = 704-7) Lab Interpretation Abnormal (test code = 78406-0) [facility] History and Physical Notes Date/Time Note Provider Source 2022-11-13 04:02:30-00:00 Formatting of this note is d ifferent from the original. [facility] MEDICINE [facility] ADMIT H&P Date of Service: 11/13/2022 CHIEF COMPLAINT: shortness of breath History of Present Illness 62 yo male with pmh of COPD who presents to the ED secondary to dyspnea, wheezing, dizziness since last night. He tried home nebulizer with no relief. Additional symptoms: productive cough (greenish), chest tightness. He denies any fever and chills. PAST MEDICAL HISTORY Past Medical History: Diagnosis Date COPD (chronic obstructive pulmonary disease) Tobacco consumption Past Surgical History: Procedure Laterality Date ANGIOGRAM VIA LOWER EXTREMITY ACCESS (SHX) Righ t 07/22/2021 Surgeon: Fuentes Cabrera MD; Location: [facility] OR LOCATION HERNIA REPAIR TOE AMPUTATION Right 07/26/2021 Surgeon: Onel Segundo DPM; Location: [facility] OR LOCATION TOE AMPUTATION Right 5th digit Rt foot Family History Problem Relation Age of Onset Cancer Mother Heart Mother Cancer Father ALLERGIES Allergies Allergen Reactions Codeine Nausea and/or Vomiting and Unknown - Se e comments MEDICATIONS No current facility-administered medications on file prior to encounter. Current Outpatient Medications on File Prior to Encounter Medication Sig Dispense Refill albuterol 2.5 mg /3 mL (0.0 83 %) nebulizer solution Inhale 3 mL every 2 (two) hours as needed for Shortness of Breath or Wheezing. 3 mL 2 ipratropium-albuteroL 0.5 m g-3 mg(2.5 mg base)/3 mL nebulizer solution USE 1 VIAL IN NEBULIZER EVERY 4 HOURS NEEDED FOR WHEEZING OR SHORTNESS OF BREATH 540 mL 2 Fluticasone-Salmeterol (ADV AIR DISKUS) 100-50 mcg/dose inhalation disk Inhale 1 Puff every 12 (twelve) hours. 60 Each 5 guaiFENesin 100 mg/5 mL mayur ution Take 10 mL by mouth every 4 (four) hours as needed for Cough. 180 mL 0 nicotine 14 mg/24 hr patch Apply 1 Patch to area(s) every 24 (twenty-four) hours for 30 days. 30 Patch 0 I attest that the foregoing medication list in the medical record is true, accurate and complete to the best of my knowledge. SOCIAL HISTORY Social History Socioeconomic History Marital status: Occupational History Occupation: diabled Tobacco Use Smoking status: Former Packs/day: 0.50 Years: 50.00 Total pack years: 25.00 Types: Cigarettes Quit date: 06/17/2019 Years since quittin.4 Passive exposure: Current Smokeless tobacco: Never Vaping Use Vaping Use: Never used Substance and Sexual Activity Alcohol use: Yes Comment: social Drug use: Never Social History Narrative Lives at home alone Social Determinants of Health Financial Resource Strain: Low Risk (10/16/2022) Overall Financial Resource Strain (CARDIA) Difficulty of Paying Living Expenses: Not very hard Food Insecurity: No Food Insecurity (10/16/2022) Hunger Vital Sign Worried About Running Out of Food in the Last Y ear: Never true Ran Out of Food in the Last Year: Never true Transportation Needs: No Transportation Needs () PRAPARE - Transportation Lack of Transportation (Medical): No Lack of Transportation (Non-Medical): No Physical Activity: Unknown (10/16/2022) Exercise Vital Sign Minutes of Exercise per Session: 0 min Social Connections: Unknown (10/16/2022) Social Connection and Isolation Panel [NHANES] Frequency of Communication with Friends and Family: More than three times a week Marital Status: Housing Stability: Low Risk (10/16/2022) Housing Stability Vital Sign Unable to Pay for Housing in the Last Year: No Number of Places Lived in the Last Year: 1 Unstable Housing in the Last Year: No Review of Systems Constitutional: Negative. HENT: Negative. Eyes: Negative. Respiratory: Positive for co ugh (productive), chest tightness, shortness of breath and wheezing. Negative for apnea, choking and stridor. Breasts: Negative. Cardiovascular: Negative. Gastrointestinal: Negative. Genitourinary: Negative. Musculoskeletal: Negative. Skin: Negative. Neurological: Positive for d izziness. Negative for tremors, seizures, syncope, facial asymmetry, speech difficulty, weakness, light-headedness, numbness and headaches. Psychiatric/Behavioral: Negative. Endocrine: Endocrine negative PHYSICAL EXAMINATION Vitals: 11/13/22 0200 11/13/22 0300 11/13/22 0319 11/13 0321 BP: 109/72 113/73 Pulse: 93 90 94 Resp: 18 26 Temp: 36.4 ?C (97.5 ?F) SpO2: 99% 91% 91% Weight: 67.5 kg (148 lb 12.8 oz) Height: 1.829 m (6') Physical Exam Vitals and nursing note reviewed. Constitutional: General: He is not in acute distress. Appearance: Normal appearan ce. He is not ill-appearing, toxic-appearing or diaphoretic. HENT: Head: Normocephalic and atraumatic. Right Ear: External ear normal. Left Ear: External ear normal. Nose: Nose normal. No congestion. Mouth/Throat: Mouth: Mucous membranes are moist. Pharynx: No oropharyngeal exudate or posterior oropharyngeal erythema. Eyes: General: No scleral icterus. Extraocular Movements: Extraocular movements in tact. Conjunctiva/sclera: Conjunctivae normal. Pupils: Pupils are equal, round, and reactive t o light. Cardiovascular: Rate and Rhythm: Normal rate and regular rhythm . Heart sounds: No murmur heard. No friction rub. No gallop. Pulmonary: Effort: Pulmonary effort is normal. No respirat ory distress. Breath sounds: Wheezing present. No rales. Comments: +coarse breath sounds Chest: Chest wall: No tenderness. Abdominal: General: Abdomen is flat. Bowel sounds are norm al. There is no distension. Palpations: Abdomen is soft. Tenderness: There is no abdominal tenderness. T here is no guarding. Musculoskeletal: General: Normal range of motion. Cervical back: Normal range of motion and neck supple. Right lower leg: No edema. Left lower leg: No edema. Skin: General: Skin is warm and dry. Neurological: Mental Status: He is alert. Psychiatric: Mood and Affect: Mood normal. Behavior: Behavior normal. Thought Content: Thought content normal. Judgment: Judgment normal. LABS - reviewed pertinent labs as below: Reviewed IMAGING - reviewed, pertinent results as below: ORDERING CLINICIAN: JONAH CHAUHAN TECHNIQUE: Single view of the chest STUDY QUALITY: Adequate INDICATION: COPD COMPARISON: 10/22/2022 DISCUSSION: The lungs are clear. The cardiac silhouette is w ithin normal limits. The airway is midline. The mediastinal contour i s normal. There are emphysematous changes. There is a stable remote fracture of the posteri or left seventh rib. IMPRESSION 1. No acute cardiopulmonary disease. 2. COPD/emphysema ASSESSMENT/PLAN Iron Del Valle is a [age] year old male with PMH as listed above, admitted to the hospital with: Acute respiratory distress: -- Will continue to treat underlying condition -- Oxygen supplementation 2. COPD exacerbation -- Will start levofloxacin -- Will continue with duoneb scheduled/prn -- Oxygen supplementation as needed -- Will order for other supportive therapy (eg, anti-tussive, decongestant) 3. Current smoker: spoke for greater than 3 minutes about smoking cessation. At this time, patient refuse smoking cessation therapy. Prophylaxis: DVT- enoxaparin Code Status: addressed: FC Estimated LOS: This inpatien t admission will likely require greater than or equal to 2 Midnights. Management is not feasible as an outpatient and there is concern for adverse outcomes if not managed in an inpatient setting. Advanc e care planning discussed for 17 mins with patient at bedside. Surrogate decision maker: Jonah Del Valle (sibling ) - Electronically signed by Ibis Roberts MD at 0 11/13/2022 7:12 AM CDT Notes Date/Time Note Provider Source 2022-11-28 Formatting of this note might be differe nt from the original. Sabrina Vital RN [facility] 23:53:44-00:00 Patient leaving AMA due to n ot wanting to be transferred to [facility], discussed risks of leaving a gainst medical advice/final dispositon, Dr. Guy aware and notified of patient's decision. Patient encouraged to seek medical attention for any new/prolonged/worsening of symptoms and stressed importance of follow up with a medical provider as soon as possible. AMA form explained, patient signed form. IV d'cd, dressing to site. Patient leaving ambulatory with steady gait, silvestre ears in no distress Electronically signed by Sabrina Vital RN a t 11/28/2022 11:54 PM CDT 2022-11-28 Formatting of this note might be differe nt from the original. 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 Electronically signed by Samantha Israel RN at 0 11/28/2022 10:15 PM CDT 2022-11-28 Formatting of this note is different from the or iginal. [facility] 22:01:00-00:00 [facility] Emergency Department Note Patient Name: Iron Del Valle Date of : 1960 62 year old male Treatment Room: TX1/TX1 Primary Care Physician: Betty Schmitz Patient Escorted by: Self [9] Mode of Arrival: Personal means [1] EMS Treatment Prior to ED Arrival: Travel and Exposure Screening: Symptoms Does patient have any of these symptoms?: (not r ecorded) Exposure Screening Has patient had contact with someone with a communicable disease in the last month?: (not recorded) Diseases exposed to:: (not recorded) Is Patient ?: (not recorded) Exposure Date: (not recorded) Chief Complaint: Chief Complaint Patient presents with Shortness of Breath History of Present Illness: PT presents with sudden wors ening of dyspnea for the past 3-4 hours. Pt has h/o copd and states feels like a copd exacerbation. PT states he started having chest pain that felt like something sitting on chest. PT denies any recent travel or surgery. PT does smoke, pt took duoneb at home with no relief. Past Medical History/Immunizations: Past Medical History: Diagnosis Date COPD (chronic obstructive pulmonary disease) Tobacco consumption Allergies: Allergies Allergen Reactions Codeine Nausea and/or Vomiting and Unknown - Se e comments Past Social History: Tobacco Use Former; Cigarettes: Quit 06/17/2019; 0.50 packs/ day for 50.00 years Passive Exposure: Current Smokeless Tobacco: Never used smokeless tobacco . Vaping Use Never used Alcohol Use Yes. Comments: social Drug Use Never. Past Surgical History: Past Surgical History: Procedure Laterality Date ANGIOGRAM VIA LOWER EXTREMITY ACCESS (SHX) Rig t 07/22/2021 Surgeon: Fuentes Cabrera MD; Location: [facility] OR LOCATION HERNIA REPAIR TOE AMPUTATION Right 07/26/2021 Surgeon: Onel Segundo DPM; Location: [facility] OR LOCATION TOE AMPUTATION Right 5th digit Rt foot Review of Systems: Review of Systems Constitutional: Negative for fever. HENT: Negative for voice change. Respiratory: Positive for chest tightness and sh ortness of breath. Cardiovascular: Positive for chest pain. Skin: Negative for wound. Neurological: Negative for seizures. Psychiatric/Behavioral: Negative for confusion. Physical Exam: ED Triage Vitals [11/28/222211] Weight 65.8 kg (145 lb) Actual or estimated Height 1.829 m (6') BP 121/74 Pulse 98 Resp 30 Temp 36.4 ?C (97.6 ?F) Temp source Oral SpO2 94 % Measured on Room air Physical Exam Vitals and nursing note reviewed. Constitutional: Appearance: Normal appearance. HENT: Head: Normocephalic. Cardiovascular: Rate and Rhythm: Normal rate. Pulmonary: Breath sounds: Wheezing present. Comments: Increased work of breathing Neurological: General: No focal deficit present. Mental Status: He is alert and oriented to pers on, place, and time. Psychiatric: Mood and Affect: Mood normal. Behavior: Behavior normal. Thought Content: Thought content normal. Judgment: Judgment normal. Radiology: CT CHEST PULMONARY ANGIOGRAM Final Result Ordering physician: CED GUY Indication: Chest pain, dyspnea, history of COPD Comparison: Chest radiograph dated 11/13/2022, ch est CT dated 08/20/2022 Technique: CTA of the chest was performed follow ing the administration of intravenous contrast material. Three-dimensional reformats were generated following completion of the exam. CT scan was pe rformed according to ALARA (as low as reasonably achievable) policy. Findings: The visualized thyroid gland is within normal limits. There is no thoracic aortic aneurysm or dissection. The hear t is normal in size without significant pericardial effusion. No filling def ect is appreciated in the pulmonary arteries to the level of the distal se gmental arteries. No pathologically enlarged mediastinal or hilar lym ph nodes are identified. No acute process is identified in the upper abdo men. No acute pulmonary process is identified. There is moderate centril obular emphysema, predominantly in the lung apices. There is a 6 m m pulmonary nodule in the right upper lobe (series 10, image 58). There is thickening of the bronchial walter in the lower lobes bilaterally. There are multiple pulmonary nodules in the right lower lobe, measu ring up to 5 mm (series 10, image 193). Bone windows through the chest demon strate no osseous destructive lesion. IMPRESSION Impression: No CTA evidence for pulmonary embolus. Thickening of the bronchial walter in the bilater al lower lobes, possibly reflecting infectious or inflammatory bronchitis . Moderate centrilobular emphysema. Multiple small pulmonary nodules in the right yazmin ng measuring up to 6 mm. The 6 mm pulmonary nodule in the right upper lob e is stable compared to the previous exam. Smaller pulmonary nodules in the right lower lobe are new compared to the prior study, and may be infectio us/inflammatory. Follow-up recommendations are based upon the 2017 [employer] Society which are based upon the nodule size and patient risk fact or for cancer. For multiple nodules 6-8 mm in size, follow-up is ba sed upon the patient risk factor: A) Low-Risk Patient: Given stability at 4 months , consider CT at 18-24 months from 08/20/2022 B) High-Risk Patient: Given stability in 4 month s, CT at 18-24 months from 08/20/2022 RL: [id number] AFC: [id number] Lab Results: Lab Results CBC WITH DIFF - Abnormal Result Value Ref Range WBC 9.85 4.20 - 10.70 10*3/?L RBC 4.92 4.26 - 5.52 10*6/?L HGB 14.9 12.2 - 16.4 g/dL HCT 44.3 38.4 - 49.3 % MCV 90.0 81.7 - 95.6 fL MCH 30.3 26.1 - 32.7 pg MCHC 33.6 31.2 - 35.0 g/dL RDW-SD 47.6 38.5 - 51.6 fL RDW-CV 14.5 12.1 - 15.4 % PLT 266 150 - 328 10*3/?L MPV 9.6 (*) 9.8 - 13.0 fL NRBC/100 WBC 0.0 0.0 - 10.0 /100 WBCs NRBC x10^3 <0.01 10*3/?L GRAN MAT (NEUT) % 68.4 % IMM GRAN % 1.50 % LYMPH % 19.4 % MONO % 7.3 % EOS % 2.6 % BASO % 0.8 % GRAN MAT x10^3(ANC) 6.73 1.99 - 6.95 10*3/uL IMM GRAN x10^3 0.15 (*) 0.00 - 0.06 10*3/uL LYMPH x10^3 1.91 1.09 - 3.23 10*3/uL MONO x10^3 0.72 0.36 - 1.02 10*3/uL EOS x10^3 0.26 0.06 - 0.53 10*3/uL BASO x10^3 0.08 0.01 - 0.09 10*3/uL COMP. METABOLIC PANEL (25110) - Abnormal NA 137 135 - 145 mmol/L K 3.9 3.5 - 5.0 mmol/L CL 100 98 - 108 mmol/L CO2 TOTAL 32 (*) 23 - 31 mmol/L AGAP 5 2 - 16 BUN 3 (*) 7 - 23 mg/dL GLUCOSE 107 70 - 110 mg/dL CREATININE 0.82 0.60 - 1.25 mg/dL TOTAL BILI 0.4 0.1 - 1.1 mg/dL CALCIUM 8.8 8.6 - 10.6 mg/dL T PROTEIN 6.5 6.3 - 8.2 g/dL ALBUMIN 3.7 3.5 - 5.0 g/dL ALK PHOS 83 34 - 122 U/L ALTv 15 5 - 50 U/L AST(SGOT) 17 13 - 40 U/L eGFR 95.5 mL/min/1.73m2 AC PANEL 21 + LACTIC ACID - Abnormal PH 7.37 7.32 - 7.42 PCO2 LARRY 46 41 - 51 mmHg PO2 LARRY 37 25 - 40 mmHg HCO3 LARRY 26 24 - 28 mEq/L AC VBE(BEAKER) 0.2 mEq/L THB LARRY 15.4 13.5 - 18.0 g/dL %O2HB LARRY 69.4 (*) 52.0 - 63.0 % %COHB LARRY 5.7 (*) 0.0 - 1.5 % %METHB LARRY 0.3 (*) 0.4 - 1.5 % VOL%O2 LARRY 15.0 (*) 6.0 - 12.0 % NA 137 135 - 145 mmol/L K+ 3.8 3.5 - 5.0 mmol/L AC CA IONZ 4.70 4.50 - 5.30 mg/dL GLUCOSE 92 70 - 110 mg/dL LACTIC ACID 0.99 0.50 - 2.20 mmol/L TROPONIN I - Normal TROPONIN I 0.003 <=0.034 ng/mL N-TERMINAL PRO-BNP - Normal NT-proBNP 33 <=125 pg/mL COVID-19 (ID NOW RAPID TESTING) - Normal SARS-CoV-2 Rapid ID NOW Not Detected Not Detect ed RAPID INFLUENZA A/B - Normal Rapid Influenza A Negative Negative Rapid Influenza B Negative Negative EKG: NSR, no stemi, qtc 449 msec, HR 96 Changed from previous ekg Orders and Treatments: Orders Placed This Encounter Procedures XR CHEST [address] CHEST PULMONARY ANGIOGRAM CBC WITH DIFF Lactic Acid Whole Blood COMP. METABOLIC PANEL (56927) TROPONIN I N-TERMINAL PRO-BNP AC PANEL 21 + LACTIC ACID COVID-19 (ID NOW TESTING) RAPID INFLUENZA A/B LAB ONLY COVID INTERPRETATION Orders Placed This Encounter Medications aspirin tablet 325 mg ipratropium-albuteroL (DUON EB) 0.5 mg-3 mg(2.5 mg base)/3 mL nebulizer solution 3 mL methylprednisolone sod succ (SOLU-MEDROL) injec tion 125 mg NaCl 0.9% (NS) bolus infusion 500 mL iopamidol (ISOVUE 370-500 mL) injection 75 mL albuterol 90 mcg/actuation inhaler predniSONE 20 mg tablet doxycycline hyclate 100 mg capsule First Provider Eval: ED Events Date/Time Event User Comments 11/28/222214 Medical Screening Begins CED GUY MD -- 11/28/222214 First Provider Evaluation CED GUY MD -- No notes of EC Admission Criteria type on file. ED COURSE Diagnosis/Impression as of 11/28/22 2348 COPD exacerbation Will obtain labs, ekg, cxr, ct chest angio. PT to receive ivf, asa, duoneb, steroids. 23:45 Pt informed of results . Pt refusing to be transferred for admission as [facility] does not have any beds. Pt understands the risks of leaving AMA. Pt is ao x 3, denies SI. Procedures: Procedures MDM: Medical Decision Making 62 yo M presents COPD exacerbation Problems Addressed: COPD exacerbation: acute illness or injury Details: pt presents with copd exacerbation Amount and/or Complexity of Data Reviewed Labs: ordered. Radiology: ordered. Risk Risk Details: PT refusing tr jacquelynfer for admission. PT understands risk of leaving ama. Flowsheet Documentation: Scoring Tools: No data recorded Disposition/Condition: ED Disposition ED Disposition AMA Condition Stable Comment -- Discharge Medications: Patient's Medications START taking these medications ALBUTEROL 90 MCG/ACTUATION INHALER Inhale 2 Puffs every 4 (four) hours as needed for Wheezing or Shortness of Breath. DOXYCYCLINE HYCLATE 100 MG CAPSULE Take 1 capsule by mouth in the morning and 1 capsule in the evening. PREDNISONE 20 MG TABLET Take 40 mg (2 tablets) daily for 5 days CONTINUE taking these medications which have NOT CHANGED ALBUTEROL 2.5 MG /3 ML (0.0 83 %) NEBULIZER SOLUTION Inhale 3 mL every 2 (two) hours as needed for Shortness of Breath or Wheezing. FLUTICASONE-SALMETEROL (ADV AIR DISKUS) 100-50 MCG/DOSE INHALATION DISK Inhale 1 Puff every 12 (twelve) hours. GUAIFENESIN 100 MG/5 ML MAYUR UTION Take 10 mL by mouth every 4 (four) hours as needed for Cough. IPRATROPIUM-ALBUTEROL 0.5 M G-3 MG(2.5 MG BASE)/3 ML NEBULIZER SOLUTION USE 1 VIAL IN NEBULIZER EVERY 4 HOURS NEEDED FOR WHEEZING OR SHORTNESS OF BREATH START taking Modified Medications as Prescribed No medications on file STOP taking these medications No medications on file Follow-up: Electronically signed by: Ced Guy MD 11/28/22 2348 Electronically signed by Ced Guy MD a t 11/28/2022 11:48 PM CDT 2022-11-16 Formatting of this note is different fro m the original. Jasmine Doshi RN [facility] 11:54:37-00:00 TRANSITIONAL CARE MANAGEMENT ASSESSMENT 11/16/2022 Iron Del Valle [id number] Iron Del Valle is a [age] year old /White male was admitted on 11/13/22 to [facility]. He was discharged on 11/15/22 with discharge disposition of HR- Routine Discharge. Admitting Physician: Ibis Roberts Discharge Diagnosis: Acute h ypoxemic respiratory failure secondary to COPD exacerbation Linked Episodes Type: Episode: Status: Noted: Resolved: Last upd ate: Updated by: TRANSITION OF CARE TCM Active 11/16/2022 10:33 AM Jasmine Doshi, [place] Comments: TCM Cwh-lald-mm-face outreach documentation: Discharge Assessment Chart Assessed: 11/16/22 Future Appointments: Future Appointments Provider Department Dept Phone 12/05/2022 11:30 AM Toma Gómez DO [facility] [phone] 04/27/2023 4:30 PM Mónica Schmitz FNP [facility] [phone] Transition CM attempted to c ontact patient x2. CM left a discreet voicemail explaining purpose of call and call back information. Jasmine Doshi RN, MSN, MEDSURG-BC, CCRN, CCM Transitions of [employer] Management Office: [phone] Electronically signed by Jasmine Doshi RN at 11:55 AM CDT 2022-11-16 [facility] 10:33:44-00:00 CM LVM to return call. Will attempt again at a l ater time. Electronically signed by Jasmine Doshi RN at 10:34 AM CDT 2022-11-14 Formatting of this note might be differe nt from the original. Fely Avery RN [facility] 22:56:22-00:00 Problem: Falls, Risk of Goal: Absence of falls Outcome: Progressing as expected Problem: Venous Thromboembolism, (actual or risk of) Goal: Absence of venous thromboembolism (Risk) Outcome: Progressing as expected Problem: Respiratory Function - Impaired Goal: Able to cough effectively Outcome: Progressing as expected Goal: Adequate oxygenation Outcome: Progressing as expected Goal: Adequate work of breathing Outcome: Progressing as expected Problem: Discharge Planning Goal: Adequate for discharge Outcome: Progressing as expected Goal: Effective communication Outcome: Progressing as expected Problem: Pain Goal: Control of pain at or below patient's docu mented comfort goal Outcome: Progressing as expected Goal: Reduction in pain sensation Outcome: Progressing as expected 2022-11-14 Formatting of this note might be differe nt from the original. Romina Montenegro RN [facility] 14:50:20-00:00 Problem: Falls, Risk of Goal: Absence of falls Outcome: Progressing as expected Problem: Venous Thromboembolism, (actual or risk of) Goal: Absence of venous thromboembolism (Risk) Outcome: Progressing as expected Problem: Respiratory Function - Impaired Goal: Able to cough effectively Outcome: Progressing as expected Goal: Adequate oxygenation Outcome: Progressing as expected Goal: Adequate work of breathing Outcome: Progressing as expected Problem: Discharge Planning Goal: Adequate for discharge Outcome: Progressing as expected Goal: Effective communication Outcome: Progressing as expected Problem: Pain Goal: Control of pain at or below patient's docu mented comfort goal Outcome: Progressing as expected Goal: Reduction in pain sensation Outcome: Progressing as expected Electronically signed by Romina Montenegro RN a t 11/14/2022 2:50 PM CDT 2022-11-13 Formatting of this note might be differe nt from the original. Colleen Jimenez [facility] 22:11:14-00:00 Nerissa MARQUEZ Problem: Falls, Risk of Goal: Absence of falls Outcome: Progressing as expected Problem: Venous Thromboembolism, (actual or risk of) Goal: Absence of venous thromboembolism (Risk) Outcome: Progressing as expected Problem: Respiratory Function - Impaired Goal: Able to cough effectively Outcome: Progressing as expected Goal: Adequate oxygenation Outcome: Progressing as expected Goal: Adequate work of breathing Outcome: Progressing as expected Problem: Discharge Planning Goal: Adequate for discharge Outcome: Progressing as expected Goal: Effective communication Outcome: Progressing as expected Problem: Pain Goal: Control of pain at or below patient's docu mented comfort goal Outcome: Progressing as expected Goal: Reduction in pain sensation Outcome: Progressing as expected T 2022-11-13 Formatting of this note might be differe nt from the original. Erika Lester RN [facility] 17:02:05-00:00 Problem: Falls, Risk of Goal: Absence of falls Outcome: Progressing as expected Problem: Venous Thromboembolism, (actual or risk of) Goal: Absence of venous thromboembolism (Risk) Outcome: Progressing as expected Problem: Respiratory Function - Impaired Goal: Able to cough effectively Outcome: Progressing as expected Goal: Adequate oxygenation Outcome: Progressing as expected Goal: Adequate work of breathing Outcome: Progressing as expected Problem: Discharge Planning Goal: Adequate for discharge Outcome: Progressing as expected Goal: Effective communication Outcome: Progressing as expected Problem: Pain Goal: Control of pain at or below patient's docu mented comfort goal Outcome: Progressing as expected Goal: Reduction in pain sensation Outcome: Progressing as expected T 2022-11-13 [facility] 09:58:53-00:00 O2 Saturation at REST on Room Air = 88% O2 Saturation at REST on 2 LPM of Oxygen = 92% If room air Saturations on R oom Air are 88% or below STOP as no further testing is needed T 2022-11-13 Formatting of this note might be differe nt from the original. Eleni Roblero RN [facility] 03:40:41-00:00 Problem: Falls, Risk of Goal: Absence of falls Outcome: Progressing as expected Problem: Venous Thromboembolism, (actual or risk of) Goal: Absence of venous thromboembolism (Risk) Outcome: Progressing as expected Problem: Respiratory Function - Impaired Goal: Able to cough effectively Outcome: Progressing as expected Goal: Adequate oxygenation Outcome: Progressing as expected Goal: Adequate work of breathing Outcome: Progressing as expected Problem: Discharge Planning Goal: Adequate for discharge Outcome: Progressing as expected Goal: Effective communication Outcome: Progressing as expected Problem: Pain Goal: Control of pain at or below patient's docu mented comfort goal Outcome: Progressing as expected Goal: Reduction in pain sensation Outcome: Progressing as expected [facility] 2022-11-13 Formatting of this note might be differe nt from the original. Priscilla Gauthier RN [facility] 03:07:34-00:00 Patient admitted to [facility] for diagnosis of INSULATION BLOWER D. Patient agrees to admission, discussed plan of c are with patient and family. Patient is awake, A&Ox 4, RR even and unlabored on RA. Color appropriate for race. PIV intact x 1. No adverse reaction to medications administered while in ED. Belongings with patient to unit. [facility] 2022-11-13 [facility] 03:06:05-00:00 Nurse Report Report given to Rachael MARQUEZ. C hief complaint, assessment findings, infusion verify and orders reviewed. Priscilla Gauthier RN 2022-11-13 Formatting of this note might be differe nt from the original. Coral Chahal RN [facility] 01:13:38-00:00 Pt presents with SOB since 1 030 pm . Pt has hx of COPD and smoker. Pt has increased WOB., 28RR and 94% RA. EKG performed during triage Electronically signed by Coral Chahal RN at 0 11/13/2022 1:20 AM T 2022-11-13 Associated Order(s): EKG-12 Lead ONCE [facility] 01:09:00-00:00 Pre-Procedure Diagnose(s): C hronic obstructive pulmonary disease, unspecified COPD type Post-Procedure Diagnose(s): Chronic obstructive pulmonary disease, unspecified COPD type Formatting of this note is different from the or iginal. [facility] Emergency Department Note Patient Name: Iron Del Valle Date of : 1960 62 year old male Treatment [facility] Primary Care Physician: Betty Schmitz Patient Escorted by: Self [9] Mode of Arrival: Personal means [1] EMS Treatment Prior to ED Arrival: [employer] treatment: Medication (comment) [employer] treatment comments: breathing tx Travel and Exposure Screening: Symptoms Does patient have any of these symptoms?: (not r ecorded) Exposure Screening Has patient had contact with someone with a communicable disease in the last month?: (not recorded) Diseases exposed to:: (not recorded) Is Patient ?: (not recorded) Exposure Date: (not recorded) Chief Complaint: Chief Complaint Patient presents with Shortness of Breath History of Present Illness: 62 y.o. male with COPD, now sob, wheezing, unresponsive to usual home nebs/tx. Reports near syncope at home where reports Oxygen sat-83% (Patient not on home O2 ) Past Medical History/Immunizations: Past Medical History: Diagnosis Date COPD (chronic obstructive pulmonary disease) Tobacco consumption Tetanus received in last 5 years: Unknown Allergies: Allergies Allergen Reactions Codeine Nausea and/or Vomiting and Unknown - Se e comments Past Social History: Tobacco Use Former; Cigarettes: Quit 06/17/2019; 0.50 packs/ day for 50.00 years Passive Exposure: Current Smokeless Tobacco: Never used smokeless tobacco . Vaping Use Never used Alcohol Use Yes. Comments: social Drug Use Never. Past Surgical History: Past Surgical History: Procedure Laterality Date ANGIOGRAM VIA LOWER EXTREMITY ACCESS (SHX) Rigsonja t 07/22/2021 Surgeon: Fuentes Cabrera MD; Location: [facility] OR LOCATION HERNIA REPAIR TOE AMPUTATION Right 07/26/2021 Surgeon: Onel Segundo DPM; Location: [facility] OR LOCATION TOE AMPUTATION Right 5th digit Rt foot Review of Systems: Review of Systems Constitutional: Positive for fatigue. Negative f or chills and fever. HENT: Negative. Eyes: Negative. Respiratory: Positive for cough, shortness of br eath and wheezing. Breasts: Negative. Cardiovascular: Negative. Gastrointestinal: Negative. Genitourinary: Negative. Musculoskeletal: Negative. Skin: Negative. Neurological: Negative. Psychiatric/Behavioral: Negative. Endocrine: Endocrine negative Physical Exam: ED Triage Vitals [11/13/22 0115] Weight 68 kg (150 lb) Actual or estimated Height 1.829 m (6') BP 106/73 Pulse 103 Resp 28 Temp 36.6 ?C (97.9 ?F) Temp src SpO2 94 % Measured on Room air Physical Exam Vitals and nursing note reviewed. Constitutional: General: He is not in acute distress. Appearance: He is ill-appearing. He is not toxi c-appearing or diaphoretic. HENT: Head: Normocephalic. Nose: Nose normal. Mouth/Throat: Mouth: Mucous membranes are dry. Eyes: Pupils: Pupils are equal, round, and reactive t o light. Cardiovascular: Rate and Rhythm: Tachycardia present. Pulses: Normal pulses. Heart sounds: Normal heart sounds. Pulmonary: Effort: Respiratory distress present. Breath sounds: Wheezing present. Abdominal: Palpations: Abdomen is soft. Musculoskeletal: General: Normal range of motion. Skin: General: Skin is warm. Capillary Refill: Capillary refill takes less t ramires 2 seconds. Neurological: General: No focal deficit present. Mental Status: He is alert and oriented to pers on, place, and time. Psychiatric: Mood and Affect: Mood normal. Behavior: Behavior normal. Radiology: No orders to display Lab Results: Lab Results CBC WITH DIFF - Abnormal Result Value Ref Range WBC 8.99 4.20 - 10.70 10*3/?L RBC 4.86 4.26 - 5.52 10*6/?L HGB 14.8 12.2 - 16.4 g/dL HCT 44.0 38.4 - 49.3 % MCV 90.5 81.7 - 95.6 fL MCH 30.5 26.1 - 32.7 pg MCHC 33.6 31.2 - 35.0 g/dL RDW-SD 48.1 38.5 - 51.6 fL RDW-CV 14.5 12.1 - 15.4 % PLT 294 150 - 328 10*3/?L MPV 9.7 (*) 9.8 - 13.0 fL NRBC/100 WBC 0.0 0.0 - 10.0 /100 WBCs NRBC x10^3 <0.01 10*3/?L GRAN MAT (NEUT) % 72.3 % IMM GRAN % 0.90 % LYMPH % 16.6 % MONO % 6.1 % EOS % 3.1 % BASO % 1.0 % GRAN MAT x10^3(ANC) 6.50 1.99 - 6.95 10*3/uL IMM GRAN x10^3 0.08 (*) 0.00 - 0.06 10*3/uL LYMPH x10^3 1.49 1.09 - 3.23 10*3/uL MONO x10^3 0.55 0.36 - 1.02 10*3/uL EOS x10^3 0.28 0.06 - 0.53 10*3/uL BASO x10^3 0.09 0.01 - 0.09 10*3/uL COMP. METABOLIC PANEL (54491) TROPONIN I EKG: If EKG completed, see Procedure Note. Orders and Treatments: Orders Placed This Encounter Procedures XR CHEST 1 VW CBC WITH DIFF COMP. METABOLIC PANEL (81985) TROPONIN I Orders Placed This Encounter Medications methylprednisolone sod succ (SOLU-MEDROL) injec tion 125 mg ipratropium-albuteroL (DUON EB) 0.5 mg-3 mg(2.5 mg base)/3 mL nebulizer solution 3 mL levoFLOXacin (LEVAQUIN) tablet 500 mg ipratropium-albuteroL (DUON EB) 0.5 mg-3 mg(2.5 mg base)/3 mL nebulizer solution 3 mL First Provider Eval: ED Events None ED COURSE Diagnosis/Impression as of 11/13/22215 Chronic obstructive pulmonary disease, unspecifi ed COPD type Procedures: EKG-12 Lead ONCE Date/Time: 11/13/2022 2:15 AM Performed by: Jonah Chauhan MD Authorized by: Jonah Chauhan MD ECG reviewed by ED Physician in the absence of a superintendent house: yes Interpretation: Interpretation: abnormal Rate: ECG rate: 104 Rhythm: Rhythm: sinus tachycardia Ectopy: Ectopy: none QRS: QRS axis: Normal QRS intervals: Normal QRS conduction: normal ST segments: ST segments: Normal T waves: T waves: normal MDM: Medical Decision Making Amount and/or Complexity of Data Reviewed Labs: ordered. Radiology: ordered. Risk Prescription drug management. A) COPD Exacerbation with Hypoxemia Disposition/Condition: Admit , Nebs, IV steroid, IVF's, Telemetry, Supplemental O2 as needed. ED Disposition None Discharge Medications: Patient's Medications START taking these medications No medications on file CONTINUE taking these medications which have NOT CHANGED ALBUTEROL 2.5 MG /3 ML (0.0 83 %) NEBULIZER SOLUTION Inhale 3 mL every 2 (two) hours as needed for Shortness of Breath or Wheezing. FLUTICASONE-SALMETEROL (ADV AIR DISKUS) 100-50 MCG/DOSE INHALATION DISK Inhale 1 Puff every 12 (twelve) hours. GUAIFENESIN 100 MG/5 ML MAYUR UTION Take 10 mL by mouth every 4 (four) hours as needed for Cough. IPRATROPIUM-ALBUTEROL 0.5 M G-3 MG(2.5 MG BASE)/3 ML NEBULIZER SOLUTION USE 1 VIAL IN NEBULIZER EVERY 4 HOURS NEEDED FOR WHEEZING OR SHORTNESS OF BREATH NICOTINE 14 MG/24 HR PATCH Apply 1 Patch to area(s) every 24 (twenty-four) hours for 30 days. START taking Modified Medications as Prescribed No medications on file STOP taking these medications No medications on file Electronically signed by: Jonah Chauhan MD 11/13/22215 Electronically signed by Jonah Chauhan MD at 0 11/13/2022 2:16 AM CDT"
[2022-12-03] MEDS ORDERED: METHYLPREDNISOLONE 125 MG INJ ONE (15:41)
[2022-12-03] MEDS ORDERED: ASPIRIN 325 MG TAB ONE (15:41)
[2022-12-03] MEDS ORDERED: Magnesium Sulfate 2gm IVPB 2 G/50 ML BAG IV ONE (15:42)
[2022-12-03 15:45] LABS: Absolute Lymphocytes (CBC) 1.4 K/uL (0.7-4.9); Hematocrit 45.5 % (39.6-49.0); Lymphocytes % 20.8 % (15.3-44.8); MCV 90.3 fL (80-100); MPV 7.7 fL (7.6-11.3); Platelets 308 thou/uL (152-406); RBC Red Blood Cell Count 5.04 M/uL (4.33-5.43)
[2022-12-03 15:51] LABS: Protime INR 0.98
[2022-12-03 15:52] LABS: SARS-CoV-2 Antigen Rapid Res Negative (Negative)
[2022-12-03 16:04] LABS: Albumin 3.1 g/dL (3.4-5.0); Bilirubin Direct 0.1 mg/dL (0-0.2); Bilirubin Indirect, Calculated 0.2 mg/dL (0.2-0.8); Bilirubin Total 0.3 mg/dL (0.2-1.0); Magnesium 2.4 mg/dL (1.6-2.4); Potassium 4.2 mEq/L (3.5-5.1); Protein, Total 6.6 g/dL (6.4-8.2); Troponin High Sensitivity 5.4 pg/mL (<58.9)
--- NOTE | 2022-12-03 16:22 | RAD REPORT ---
EXAM DESCRIPTION: Amna Sutherland And Patel (2 Views)12/03/2022 3:49 pm CLINICAL HISTORY: Shortness of breath COMPARISON: October 2022 FINDINGS: Lungs are markedly hyperaerated. The lungs appear clear of acute infiltrate. The heart is normal size. Old rib fracture IMPRESSION: No acute abnormalities displayed
[2022-12-03] MEDS ORDERED: IPRATROPIUM BROM 0.5MG/2.5ML ONE ×2 (16:25→18:33)
[2022-12-03] MEDS ORDERED: ALBUTEROL 2.5 MG/3 ML NEB SOL ONE ×2 (16:25→18:32)
[2022-12-03] MEDS ORDERED: CEFEPIME 2 GM VIAL ONE (17:46)
[2022-12-03] MEDS ORDERED: NA CHLORIDE 0.9% 100 ML ONE (17:46)
--- NOTE | 2022-12-03 18:10 | RAD REPORT ---
EXAM DESCRIPTION: CT - Chest For Pe Angio - 12/03/2022 5:43 pm CLINICAL HISTORY: Shortness of breath COMPARISON: None. TECHNIQUE: Dynamically enhanced axial 3 mm thick images of the chest were obtained during administra tion of 100 mL Isovue 370 IV contrast. Coronal and oblique reconstruction images were generated and r eviewed. Exam utilizes a protocol for optimal evaluation of pulmonary arterial tree. Maximum intensity projections 3D imaging was utilized All CT scans are performed using dose optimization technique as appropriate and may include automated exposure control or mA/KV adjustment according to patient size. FINDINGS: A pulmonary embolus is not seen. A thoracic aortic aneurysm is not noted. A pleural effusion is not seen. A pericardial effusion is not seen. A lung consolidation is not present. Centrilobular and paraseptal emphysema IMPRESSION: Negative for a pulmonary embolism.
--- NOTE | 2022-12-03 19:05 | ER ---
Nurse's Notes [facility] [place] Name: Iron Haynes Age: 62 yrs Sex: Male : 1960 Arrival Date: 12/03/2022 Time: 15:12 Bed 7 Private MD: Diagnosis: COPD/ Chronic obstructive pulmonary disease with (acute) exacerbation;Acute and chronic respiratory failure with hypoxia Presentation: 12/03 15:22 Chief complaint: Patient states: copd , SOB X 3-4 days, +cough, tightness in chest , 96 iw on RA. Coronavirus screen: Client presents with at least one sign or symptom that may indicate coronavirus-19. Ebola Screen: Patient negative for fever greater than or equal to 101.5 degrees Fahrenheit, and additional compatible Ebola Virus Disease symptoms Patient denies exposure to infectious person. Patient denies travel to an Ebola-affected area in the 21 days before illness onset. No symptoms or risks identified at this time. Initial Sepsis Screen: Does the patient meet any 2 criteria? No. Patient's initial sepsis screen is negative. Does the patient have a suspected source of infection?. Risk Assessment: Do you want to hurt yourself or someone else? Patient reports no desire to harm self or others. Onset of symptoms was November 30, 2022. 15:22 Method Of Arrival: Wheelchair 15:22 Acuity: EDUARD 3 iw Historical: - Allergies: 15:23 Codeine; iw - Home Meds: 15:23 Combivent Inhl [Active]; iw - PMHx: 15:23 COPD; osteomyelitis; iw - PSHx: 15:23 Bilateral Inguinal Hernia Repair; toe amputation; iw - Social history:: Smoking status: Patient reports the use of cigarette tobacco products. Screenin:45 [facility] ED Fall Risk Assessment (Adult) History of falling in the last 3 months, kc6 including since admission No falls in past 3 months (0 pts) Confusion or Disorientation No (0 pts) Intoxicated or Sedated No (0 pts) Impaired Gait No (0 pts) Mobility Assist Device Used No (0 pt) Altered Elimination No (0 pt) Score/Fall Risk Level 0 - 2 = Low Risk. Abuse screen: Denies threats or abuse. Denies injuries from another. Nutritional screening: No deficits noted. Tuberculosis screening: No symptoms or risk factors identified. Assessment: 16:05 General: Appears in no apparent distress. uncomfortable, Behavior is calm, cooperative, kc6 appropriate for age. Pain: Denies pain. Pain does not radiate. Quality of pain is described as dull, pressure, Pain began 2-3 days ago. Neuro: Level of Consciousness is awake, alert, obeys commands, Oriented to person, place, time, situation, Appropriate for age. Cardiovascular: Reports shortness of breath, Denies chest pain, Heart tones S1 S2 present Capillary refill < 3 seconds Rhythm is sinus rhythm. Respiratory: Airway is patent Trachea midline Respiratory effort is even, unlabored, Respiratory pattern is symmetrical, tachypnea Breath sounds with wheezes bilaterally. GI: No signs and/or symptoms were reported involving the gastrointestinal system. : No signs and/or symptoms were reported regarding the genitourinary system. EENT: No signs and/or symptoms were reported regarding the EENT system. Derm: No signs and/or symptoms reported regarding the dermatologic system. Skin is intact, is healthy with good turgor, Skin is pink, warm \T\ dry. Musculoskeletal: No signs and/or symptoms reported regarding the musculoskeletal system. Circulation, motion, and sensation intact. Capillary refill < 3 seconds, Range of motion: intact in all extremities. 17:05 Reassessment: Patient appears in no apparent distress at this time. No changes from kc6 previously documented assessment. Patient and/or family updated on plan of care and expected duration. Pain level reassessed. Patient is alert, oriented x 3, equal unlabored respirations, skin warm/dry/pink. 17:35 Reassessment: pt appears to be 87% on RA. placed on 2L via NC. pt is not 93%. kc6 18:05 Reassessment: Patient appears in no apparent distress at this time. No changes from kc6 previously documented assessment. Patient and/or family updated on plan of care and expected duration. Pain level reassessed. Patient is alert, oriented x 3, equal unlabored respirations, skin warm/dry/pink. Vital Signs: 15:22 BP 111 / 84; Pulse 106; Resp 20 S; Temp 98.2; Pulse Ox 95% on R/A; iw 16:31 BP 101 / 71; Pulse 80; Resp 17 S; Pulse Ox 99% on R/A; kc6 17:05 BP 106 / 71; Pulse 90; Resp 25 S; Pulse Ox 92% on R/A; kc6 17:35 Pulse Ox 87% on R/A; kc6 17:56 BP 99 / 88; Pulse 81; Resp 19 S; Pulse Ox 92% on 2 lpm NC; kc6 18:44 BP 104 / 80; Pulse 88; Resp 20 S; Pulse Ox 98% on R/A; kc6 19:01 Pulse Ox 94% on 3 lpm NC; sb4 19:30 BP 103 / 71; Pulse 84; Resp 16; Pulse Ox 96% on 3 lpm NC; jb4 ED Course: 15:14 Patient arrived in ED. mg5 15:19 Judi Carreon PA-C is PHCP. sb4 15:20 Marcus Masters MD is Attending Physician. sb4 15:23 Triage completed. iw 15:23 Arm band placed on. iw 15:44 Jessica Chowdary RN is Primary Nurse. kc6 15:45 Patient has correct armband on for positive identification. Bed in low position. Call kc6 light in reach. Side rails up X 1. Client placed on continuous cardiac and pulse oximetry monitoring. NIBP monitoring applied. monitor worker on. 15:45 Flu Sent. kc6 15:45 SARS RAPID Sent. kc6 15:45 Inserted saline lock: 20 gauge in right antecubital area, using aseptic technique. kc6 ,using aseptic technique. placed by Marija Cloud RN Blood collected. Patient maintains SpO2 saturation greater than 95% on room air. 15:48 XRAY Chest Pa And Lat (2 Views) In Process Unspecified. EDMS 17:45 Chest For PE Angio CT In Process Unspecified. EDMS 19:00 Report given to Cecilia Velasco RN \T\ ALMA Jennings. kc6 19:04 Sunil Olvera MD is Hospitalizing Provider. sb4 Administered Medications: 15:45 Drug: Aspirin PO 325 mg Route: PO; kc6 17:27 Follow up: Response: No adverse reaction kc6 15:45 Drug: MethylPrednisoLONE IVP 125 mg Route: IVP; Site: right antecubital; kc6 17:27 Follow up: Response: No adverse reaction kc6 15:45 Drug: Magnesium Sulfate IVPB 2 grams Route: IVPB; Infused Over: 2 hrs; Site: right kc6 antecubital; 17:28 Follow up: Response: No adverse reaction; IV Status: Completed infusion; IV Intake: 11vggw2 16:24 Drug: DuoNeb Nebulize (2.5 mg - 0.5 mg) 3 ml Route: Nebulizer; kc6 17:28 Follow up: Response: No adverse reaction; Wheezing unchanged kc6 17:53 Drug: Cefepime IVPB 2 grams Route: IVPB; Rate: 200 ml/hr; Infused Over: 30 mins; Site: [facility] right antecubital; 18:39 Follow up: Response: No adverse reaction; IV Status: Completed infusion; IV Intake: kc6 100ml 18:39 Drug: DuoNeb Nebulize (3:1) (2.5 mg - 0.5 mg) 3 ml Route: Nebulizer; kc6 19:19 Follow up: Response: No adverse reaction; Wheezing diminished kc6 Intake: 17:28 IV: 50ml; Total: 50ml. kc6 18:39 IV: 100ml; Total: 150ml. kc6 Outcome: 19:05 Decision to Hospitalize by Provider. sb4 20:11 Patient left the ED. kd3 Signatures: Dispatcher [employer] EDMS Leila Gomez RN RN iw Bryson, James, RN RN jb4 Doucette, Kyli, RN RN kd3 Jessica Chowdary RN RN kc6 Brown, Sophia, PA-C PA-C sb4 Gardner, [place] mg5 Corrections: (The following items were deleted from the chart) 16:05 16:03 Patient has correct armband on for positive identification. Bed in low position. kc6 Call light in reach. Side rails up X 1. kc6 16:05 16:03 Client placed on continuous cardiac and pulse oximetry monitoring. NIBP kc6 monitoring applied. monitor worker on. 6 16:05 16:03 [facility] ED Fall Risk Assessment (Adult) History of falling in the last 3 months, kc6 including since admission No falls in past 3 months (0 pts) Confusion or Disorientation No (0 pts) Intoxicated or Sedated No (0 pts) Impaired Gait No (0 pts) Mobility Assist Device Used No (0 pt) Altered Elimination No (0 pt) Score/Fall Risk Level 0 - 2 = Low Risk kc6 16:05 16:03 Abuse screen: Denies threats or abuse. Denies injuries from another. kc6 kc6 16:05 16:03 Nutritional screening: No deficits noted. kc6 kc6 16:05 16:03 Tuberculosis screening: No symptoms or risk factors identified. kc6 kc6 20:14 19:30 BP 103 / 71; Pulse 84bpm; Resp 16bpm; Pulse Ox 96% RA; jb4 jb4
--- NOTE | 2022-12-03 19:05 | EDPHYS ---
Physician Documentation [facility] Name: Iron Haynes Age: 62 yrs Sex: Male : 1960 Arrival Date: 12/03/2022 Time: 15:12 Bed 7 Private MD: ED Physician Marcus Masters HPI: 12/03 15:51 This 62 yrs old Male presents to ER via Wheelchair with complaints of Chest Tightness, sb4 Breathing Difficulty. 15:51 Onset: The symptoms/episode began/occurred 3 day(s) ago. Associated signs and symptoms: sb4 Pertinent positives: chest pain, cough, shortness of breath, wheezing, Pertinent negatives: abdominal pain, fever, vomiting. Modifying factors: The patient symptoms are alleviated by nebulizer treatment(s), the patient symptoms are aggravated by activity. The patient has experienced similar episodes in the past, chronically, today's symptoms are similar. patient reports increasing shortness of breath, wheezing, chest tightness over the past 3 days that feel similar to his COPD exacerbations. he states his O2 has been as low as 85% at home. he does not have home O2. has been using his nebulizer without resolution of symptoms. Historical: - Allergies: 15:23 Codeine; iw - Home Meds: 15:23 Combivent Inhl [Active]; iw - PMHx: 15:23 COPD; osteomyelitis; iw - PSHx: 15:23 Bilateral Inguinal Hernia Repair; toe amputation; iw - Social history:: Smoking status: Patient reports the use of cigarette tobacco products. ROS: 15:51 Constitutional: Negative for fever, chills, and weight loss, Eyes: Negative for injury, sb4 pain, redness, and discharge, ENT: Negative for injury, pain, and discharge, Abdomen/GI: Negative for abdominal pain, nausea, vomiting, diarrhea, and constipation, Back: Negative for injury and pain, MS/Extremity: Negative for injury and deformity, Skin: Negative for injury, rash, and discoloration, Neuro: Negative for headache, weakness, numbness, tingling, and seizure. 15:51 Cardiovascular: Positive for chest pain, Negative for edema, orthopnea, palpitations. 15:51 Respiratory: Positive for cough, dyspnea on exertion, shortness of breath, wheezing, Negative for hemoptysis, orthopnea, pleurisy. 15:51 All other systems are negative. Exam: 15:51 Constitutional: This is a well developed, well nourished patient who is awake, alert, sb4 and in no acute distress. Head/Face: Normocephalic, atraumatic. Eyes: Extra-ocular motions intact. Periorbital areas with no swelling, redness, or edema. ENT: Mucous membranes moist. Cardiovascular: Regular rate and rhythm with a normal S1 and S2. Abdomen/GI: Soft, non-tender, no distension. Back: No spinal tenderness. No costovertebral tenderness. Full range of motion. Skin: Warm, dry with normal turgor. Normal color with no rashes, no lesions, and no evidence of cellulitis. MS/ Extremity: Pulses equal, no cyanosis. Neurovascular intact. Full, normal range of motion. 15:51 Respiratory: mild respiratory distress is noted, Respirations: tachypnea, that is mild, Breath sounds: wheezing: is heard diffusely. Vital Signs: 15:22 BP 111 / 84; Pulse 106; Resp 20 S; Temp 98.2; Pulse Ox 95% on R/A; iw 16:31 BP 101 / 71; Pulse 80; Resp 17 S; Pulse Ox 99% on R/A; kc6 17:05 BP 106 / 71; Pulse 90; Resp 25 S; Pulse Ox 92% on R/A; kc6 17:35 Pulse Ox 87% on R/A; kc6 17:56 BP 99 / 88; Pulse 81; Resp 19 S; Pulse Ox 92% on 2 lpm NC; kc6 18:44 BP 104 / 80; Pulse 88; Resp 20 S; Pulse Ox 98% on R/A; kc6 19:01 Pulse Ox 94% on 3 lpm NC; sb4 19:30 BP 103 / 71; Pulse 84; Resp 16; Pulse Ox 96% on 3 lpm NC; jb4 MDM: 15:20 Patient medically screened. sb4 19:03 Differential diagnosis: viral Infection, bacterial infection, URI, bronchitis, sb4 pneumonia meningitis, COPD exacerbation, PE. Data reviewed: vital signs, nurses notes, lab test result(s), EKG, radiologic studies, and as a result, I will admit patient. Consideration of Admission/Observation Patient was admitted/placed on observation. Management of patient was discussed with the following: Hospitalist: Zach ROBERTSON. Care significantly affected by the following chronic conditions: Chronic Obstructive Pulmonary Disease. Counseling: I had a detailed discussion with the patient and/or guardian regarding: the historical points, exam findings, and any diagnostic results supporting the discharge/admit diagnosis, lab results, radiology results, the need for further work-up and treatment in the hospital, smoking cessation. Medication response: albuterol nebulizer treatment(s) partially relieved the patient's wheezing. ED course: Patient dropped down to 87% on RA, placed on 3L NC. does not have O2 at home. still feels short of breath. 12/03 15:23 Order name: BMP; Complete Time: 16:05 sb4 12/03 15:23 Order name: CBC with Diff; Complete Time: 15:49 sb4 12/03 15:23 Order name: Hepatic Function; Complete Time: 16:05 sb4 12/03 15:23 Order name: Lipase; Complete Time: 16:05 sb4 12/03 15:23 Order name: Magnesium; Complete Time: 16:05 sb4 12/03 15:23 Order name: NT PRO-BNP; Complete Time: 16:05 sb4 12/03 15:23 Order name: Troponin HS; Complete Time: 16:05 sb4 12/03 15:23 Order name: SARS RAPID; Complete Time: 15:58 sb4 12/03 15:23 Order name: Flu; Complete Time: 16:01 sb4 12/03 15:24 Order name: DD; Complete Time: 15:58 sb4 12/03 15:43 Order name: Protime (+INR); Complete Time: 15:58 EDMS 12/03 15:43 Order name: PTT, Activated Partial Thromb; Complete Time: 15:58 EDMS 12/03 15:23 Order name: XRAY Chest Pa And Lat (2 Views); Complete Time: 16:38 sb4 12/03 16:59 Order name: Chest For PE Angio CT; Complete Time: 18:11 sb4 12/03 15:23 Order name: EKG; Complete Time: 15:24 sb4 12/03 15:23 Order name: Cardiac monitoring; Complete Time: 15:44 sb4 12/03 15:23 Order name: EKG - Nurse/Tech; Complete Time: 15:44 sb4 12/03 15:23 Order name: IV Saline Lock; Complete Time: 15:44 sb4 12/03 15:23 Order name: Labs collected and sent; Complete Time: 15:45 sb4 12/03 15:23 Order name: O2 Per Protocol; Complete Time: 15:45 sb4 12/03 15:23 Order name: O2 Sat Monitoring; Complete Time: 15:45 sb4 EC:17 Rate is 97 beats/min. Rhythm is regular, Normal Sinus Rhythm with PACs. OK interval is sb4 normal at 138 msec. QRS interval is normal at 88 msec. QT interval is normal at 360 msec. Clinical impression: NSR w/ Non-specific ST/T Changes and Abnormal EKG without significant change. Interpreted by me. Reviewed by me. Administered Medications: 15:45 Drug: Aspirin PO 325 mg Route: PO; kc6 17:27 Follow up: Response: No adverse reaction 6 15:45 Drug: MethylPrednisoLONE IVP 125 mg Route: IVP; Site: right antecubital; kc6 17:27 Follow up: Response: No adverse reaction 6 15:45 Drug: Magnesium Sulfate IVPB 2 grams Route: IVPB; Infused Over: 2 hrs; Site: right 6 antecubital; 17:28 Follow up: Response: No adverse reaction; IV Status: Completed infusion; IV Intake: 00cilj2 16:24 Drug: DuoNeb Nebulize (2.5 mg - 0.5 mg) 3 ml Route: Nebulizer; kc6 17:28 Follow up: Response: No adverse reaction; Wheezing unchanged kc6 17:53 Drug: Cefepime IVPB 2 grams Route: IVPB; Rate: 200 ml/hr; Infused Over: 30 mins; Site: [facility] right antecubital; 18:39 Follow up: Response: No adverse reaction; IV Status: Completed infusion; IV Intake: kc6 100ml 18:39 Drug: DuoNeb Nebulize (3:1) (2.5 mg - 0.5 mg) 3 ml Route: Nebulizer; 6 19:19 Follow up: Response: No adverse reaction; Wheezing diminished kc6 Disposition Summary: 12/03/22 19:05 Hospitalization Ordered Hospitalization Status: Inpatient Admission sb4 Provider: Sunil Olvera Location: Telemetry/[facility]Sur (Inpatient) sb4 Condition: Fair sb4 Problem: an acute exacerbation sb4 Symptoms: are unchanged sb4 Bed/Room Type: Standard sb4 Room Assignment: 405(12/03/22 19:25) cg Diagnosis - COPD/ Chronic obstructive pulmonary disease with (acute) exacerbation sb4 - Acute and chronic respiratory failure with hypoxia sb4 Forms: - Medication Reconciliation Form sb4 - SBAR form sb4 Addendum: 12/08/2022 07:03 Co-signature as Attending Physician, Marcus Masters MD I reviewed the patient's care r t provided by the Advanced Practice Provider and agree with the diagnosis and treatment plan. Signatures: Dispatcher [employer] EDLeila Condon, RN Eva Cotter RN RN Jessica Gongora RN RN kc6 Judi Carreon, PA-C PA-C sb4 Marcus Masters MD MD rt Corrections: (The following items were deleted from the chart) 12/03 15:43 15:24 PROTIME (+INR)+COAG.LAB.BRZ ordered. EDMS EDMS 15:43 15:24 PTT, ACTIVATED+COAG.LAB.BRZ ordered. EDMS EDMS 19:25 19:05 sb4 cg
[2022-12-03] MEDS ORDERED: ONDANSETRON 4 MG/2 ML VIAL IV PRN (20:07)
[2022-12-03] MEDS ORDERED: ACETAMINOPHEN 500 MG TAB PO PRN (20:07)
[2022-12-03] MEDS ORDERED: IPRATROPIUM BROM 0.5MG/2.5ML NEB PRN (20:07)
[2022-12-03] MEDS ORDERED: ALBUTEROL 2.5 MG/3 ML NEB SOL NEB PRN (20:07)
[2022-12-03] MEDS ORDERED: MELATONIN 5 MG TABLET PO PRN (20:07)
--- NOTE | 2022-12-03 20:35 | P.HP ---
Certification for Inpatient Patient admitted to: Inpatient With expected LOS: >2 Midnights Patient will require the following post-hospital care: None Practitioner: I am a practitioner with admitting privileges, knowledge of patient current condition, hospital course, and medical plan of care. Services: Services provided to patient in accordance with Admission requirements found in Title 42 Section 412.3 of the Code of Federal Regulations Patient History Date of Service: 12/03/22 Reason for admission: COPD exacerbation History of Present Illness: 62-year-old male with history of COPD presents emergency department chief complaint of shortness of breath, chest pain. He reports his symptoms began approximately 4 to 5 days ago and have been resistant to treatment with his typical albuterol inhaler. He was evaluated in the emergency department his labs were unremarkable chest x-ray negative for acute findings CTA of the chest was also performed which was negative for pulmonary believes him or pneumonia/infectious process. Patient desatted to 87% on room air despite receiving IV steroids, multiple rounds of nebulizer treatments and IV magnesium in the ED, he is still having mild respiratory distress and expiratory wheezing, will need to admit for COPD exacerbation. Allergies codeine Adverse Reaction (Verified 10/29/22 09:54) Nausea/Vomiting Home Medications: Ipratropium/Albuterol Sulfate [Iprat-Albut 0.5-3(2.5) mg/3 ml] 3 ml NEB Q4H PRN 10/30/22 - Past Medical/Surgical History Diabetic: No -: COPD -: PAD -: Right small toe amputation 2019 Psychosocial/ Personal History: Patient lives at home with family - Social History Smoking Status: Current every day smoker Counseled patient to stop smoking for: less than 10 minutes Smoking therapy provided: Yes Alcohol use: Yes CD- Drugs: No Caffeine use: Yes Place of Residence: Home Review of Systems 10-point ROS is otherwise unremarkable Respiratory: Cough, Shortness of Breath Physical Examination - Vital Signs Temperature: 98.2 F Blood Pressure: 103/71 Pulse: 84 Respirations: 16 - Physical Exam General: Alert, In no apparent distress, Oriented x3 HEENT: Atraumatic, PERRLA, Mucous membr. moist/pink, EOMI, Sclerae nonicteric Neck: Supple, 2+ carotid pulse no bruit, No LAD, Without JVD or thyroid abnormality Respiratory: Diminished, Expiratory wheezes, Other (Mild respiratory distress) Cardiovascular: No edema, Regular rate/rhythm, Normal S1 S2 Gastrointestinal: Normal bowel sounds, No tenderness Musculoskeletal: No tenderness Integumentary: No rashes Neurological: Normal gait, Normal speech, Normal strength at 5/5 x4 extr, Normal tone, Normal affect Lymphatics: No axilla or inguinal lymphadenopathy - Studies Laboratory Data (last 24 hrs) 12/03/22 12/03/22 12/03/22 15:32 15:32 15:32 WBC 6.90 Hgb 15.0 Hct 45.5 Plt Count 308 PT 10.8 INR 0.98 APTT 43.7 H Sodium 137 Potassium 4.2 BUN 5 L Creatinine 0.91 Glucose 112 H Magnesium 2.4 Total Bilirubin 0.3 AST 7 L ALT 16 Alkaline Phosphatase 97 Lipase 12 L 12/03/22 15:23 WBC Hgb Hct Plt Count PT Cancelled INR Cancelled APTT Cancelled Sodium Potassium BUN Creatinine Glucose Magnesium Total Bilirubin AST ALT Alkaline Phosphatase Lipase Microbiology Data (last 24 hrs): 12/03/22 15:30 Nasopharnyx Influenza Type A Antigen Screen - Final 12/03/22 15:30 Nasopharnyx Influenza Type B Antigen Screen - Final Assessment and Plan - Plan Assessment: Acute hypoxic respiratory failure secondary to COPD with exacerbation Chest pain rule ACS Tobacco abuse Plan: Acute hypoxic respiratory failure secondary to COPD with exacerbation Continue steroids, ICS, as needed nebulizer treatments. Pulmonology consult in place. Chest pain rule ACS Chest pain seems to be related to respiratory symptoms, will trend troponins, mo nitor on telemetry. If pain is persistent or worsening or any other changes to place we will consult with cardiology. CT PE protocol is negative. Tobacco abuse Counseled on need for tobacco cessation, declined NicoDerm patch. DVT PPX: Lovenox Code status: Full Discharge Plan: Home Plan to discharge in: 48 Hours - Advance Directives Does patient have a Living Will: No Does patient have a Durable POA for Healthcare: No - Code Status/Comfort Care Code Status Assessed: Yes (Full code) Critical Care: No Time Spent Managing Pts Care (In Minutes): 55
[2022-12-03] MEDS ORDERED: DULERA 200/5 (MOMETASONE/FORMOTEROL) INHALER IH SCH (21:00)
[2022-12-03] MEDS: predniSONE 20 MG TAB PO SCH (21:01)
[2022-12-03 21:16] VITALS: BMI 19.6
[2022-12-04 03:37] LABS: Absolute Lymphocytes (CBC) 0.5 K/uL (0.7-4.9); Hematocrit 43.1 % (39.6-49.0); Lymphocytes % 6.7 % (15.3-44.8); MPV 7.7 fL (7.6-11.3); Platelets 273 thou/uL (152-406); RBC Red Blood Cell Count 4.79 M/uL (4.33-5.43)
[2022-12-04 03:53] LABS: Potassium 4.8 mEq/L (3.5-5.1)
[2022-12-04] MEDS: ARFORMOTEROL TARTRATE 15 MCG/2 ML VIAL.NEB NEB SCH ×2 (09:00→19:40)
[2022-12-04] MEDS: predniSONE 20 MG TAB PO SCH ×2 (09:22→20:43)
[2022-12-04] MEDS: ROFLUMILAST 500 MCG TABLET PO SCH (09:22)
[2022-12-04] MEDS: ENOXAPARIN 40 MG/0.4 ML SQ SCH (09:22)
--- NOTE | 2022-12-04 12:01 | P.CNS ---
Date of Consult: 12/04/22 Reason for Consult: COPD exacerbation Chief Complaint: COPD exacerbation History of Present Illness: Patient is 62 years of age with history of COPD has been gotten progressively worse the past week he uses a nebulizer on a as needed basis and is an active sm oker at time of my evaluation he was tachypneic short of breath barely able to talk Allergies codeine Adverse Reaction (Verified 10/29/22 09:54) Nausea/Vomiting Home Medications: Ipratropium/Albuterol Sulfate [Iprat-Albut 0.5-3(2.5) mg/3 ml] 3 ml NEB Q4H PRN 10/30/22 - Past Medical/Surgical History Diabetic: No -: COPD -: PAD -: Right small toe amputation 2019 Psychosocial/ Personal History: Patient lives at home with family - Social History Smoking Status: Current every day smoker Alcohol use: Yes CD- Drugs: No Caffeine use: Yes Place of Residence: Home Review of Systems 10-point ROS is otherwise unremarkable General: Weakness Respiratory: Shortness of Breath Physical Examination Temp Pulse Resp BP Pulse Ox 98.4 F 75 18 99/61 93 12/04/22 11:56 12/04/22 11:56 12/04/22 11:56 12/04/22 11:56 12/04/22 11:56 General: Alert, Moderate distress Neck: Supple Respiratory: Clear to auscultation bilaterally, Diminished Cardiovascular: No edema, Normal pulses, Regular rate/rhythm Laboratory Data (last 24 hrs) 12/03/22 12/03/22 12/03/22 15:32 15:32 15:32 WBC 6.90 Hgb 15.0 Hct 45.5 Plt Count 308 PT 10.8 INR 0.98 APTT 43.7 H Sodium 137 Potassium 4.2 BUN 5 L Creatinine 0.91 Glucose 112 H Magnesium 2.4 Total Bilirubin 0.3 AST 7 L ALT 16 Alkaline Phosphatase 97 Lipase 12 L 12/03/22 15:23 WBC Hgb Hct Plt Count PT Cancelled INR Cancelled APTT Cancelled Sodium Potassium BUN Creatinine Glucose Magnesium Total Bilirubin AST ALT Alkaline Phosphatase Lipase - Problems (1) COPD exacerbation Current Visit: No Status: Acute Plan: Patient is 62 years of age active tobacco abuse admitted with COPD exacerbation chest x-ray shows COPD changes chemistries reviewed vital signs are stable and scheduled bronchodilator therapy continue with steroids add Daliresp had a macrolide antibiotic
[2022-12-04] MEDS: AZITHROMYCIN 250 MG TAB PO SCH (12:09)
--- NOTE | 2022-12-04 13:02 | EKG ---
Test Date: 2022-12-03 Test Time: 15:38:03 Professor Of Marketing: TEZ MEASUREMENT RESULTS: Intervals: Rate: 97 [place]: 138 QRSD: 88 QT: 360 QTc: 457 [place]: P: 81 [place]: 138 QRS: 101 T: 82 INTERPRETIVE STATEMENTS: Sinus rhythm with fusion complexes and premature atrial complexes Possible Right ventricular hypertrophy ST elevation, consider early repolarization, pericarditis, or injury Abnormal ECG Compared to ECG 10/29/2022 04:31:17 Atrial premature complex(es) now present Fusion complex(es) now present ST (T wave) deviation now present Sinus tachycardia no longer present Right-axis deviation no longer present Electronically Signed On 12-04-22 12:59:27 CDT by Martín Arias
[2022-12-04] MEDS: IPRATROPIUM BROM 0.5MG/2.5ML NEB SCH ×2 (13:40→19:40)
[2022-12-04] MEDS ORDERED: ALBUTEROL 2.5 MG/3 ML NEB SOL NEB PRN (14:00)
[2022-12-04] MEDS ORDERED: guaiFENesin 100 MG/5 ML UCUP PO PRN (17:51)
[2022-12-04] MEDS ORDERED: BENZONATATE 100 MG CAP PO PRN (17:51)
--- NOTE | 2022-12-04 17:51 | P.PN ---
Subjective Date of Service: 12/04/22 Chief Complaint: COPD exacerbation No acute events since admission. He reports significant shortness of breath. This been associated with a dry cough and wheezing. He states that he has a history of COPD, but is only prescribed albuterol and ipratropium nebulizers. He denies having any inhalers at home. He denies any chest pain, palpitations, fevers, or chills. Review of Systems 10-point ROS is otherwise unremarkable Respiratory: Cough, Shortness of Breath, Wheezing Physical Examination - Vital Signs Temperature: 98.6 F Blood Pressure: 107/61 Pulse: 79 Respirations: 20 Pulse Ox (%): 94 - Physical Exam General: Alert, In no apparent distress, Oriented x3 HEENT: Atraumatic, Mucous membr. moist/pink, Sclerae nonicteric Neck: JVD not distended Respiratory: Diminished, Expiratory wheezes Cardiovascular: No edema, Regular rate/rhythm, Normal S1 S2, No gallops, No rubs, No murmurs Gastrointestinal: Normal bowel sounds, Soft and benign, Non-distended, No tenderness, No rebound, No guarding Musculoskeletal: No clubbing Integumentary: No rashes Neurological: Normal speech, Normal affect - Studies Microbiology Data (last 24 hrs): 12/03/22 15:30 Nasopharnyx Influenza Type A Antigen Screen - Final 12/03/22 15:30 Nasopharnyx Influenza Type B Antigen Screen - Final Assessment And Plan - Plan # Acute Chronic Obstructive Pulmonary Disease Exacerbation # SIRS Criteria (Tachypnea, Tachycardia) likely due to COPD Exacerbation - Evaluation thus far: - Physical exam = wheezing throughout - Chest x-ray = "no acute abnormalities displayed" - CT chest angiogram = "negative for a pulmonary embolism." - Management plan: - Consulted Pulmonology - recommendations appreciated - Bronchodilators and steroids per Pulm - Continue roflumilast - Consulted Respiratory Therapy - Supplemental oxygen to maintain SpO2 > 92% - Assess inhaler technique one improved from COPD exacerbation - Encouraged incentive spirometry Sunil Olvera M.D.
--- NOTE | 2022-12-04 21:29 | P.PN ---
Date of Service: 12/05/22 Subjective: 12/05 note ROS: 10 point ROS as noted above, otherwise negative Physical Exam: GEN: Alert, oriented, NAD HEENT: Normal conjunctiva, sclera anicteric CV: Regular rate & rhythm, no edema Pulm: Nonlabored respiraitons on 2L NC, Diminished, Expiratory wheezes ABD: Soft, nontender, nondistended MSK: No joint tenderness Integumentary: No rashes Neuro: Normal speech, normal affect Problem List: 1. Acute COPD exacerbation 2. SIRS Criteria (Tachypnea, Tachycardia) likely due to COPD Exacerbation PLAN CXR (12/03): no acute abnormalities CTA (12/03): no PE Pulmonology consulted Continue Azithromycin (12/04-) continue Bronchodilators and steroids continue roflumilast Supplemental oxygen to maintain SpO2 > 92% Assess inhaler technique one improved from COPD exacerbation Encouraged incentive spirometry PRN tessalon blair VTE: Lovenox Code: Full Dispo: Home
[2022-12-05] MEDS: IPRATROPIUM BROM 0.5MG/2.5ML NEB SCH ×4 (01:20→19:44)
[2022-12-05 06:36] LABS: Potassium 4.8 mEq/L (3.5-5.1)
[2022-12-05] MEDS: ARFORMOTEROL TARTRATE 15 MCG/2 ML VIAL.NEB NEB SCH (07:35)
[2022-12-05] MEDS: ENOXAPARIN 40 MG/0.4 ML SQ SCH (07:51)
[2022-12-05] MEDS: ROFLUMILAST 500 MCG TABLET PO SCH (07:52)
[2022-12-05] MEDS: AZITHROMYCIN 250 MG TAB PO SCH (07:52)
[2022-12-05] MEDS: predniSONE 20 MG TAB PO SCH ×2 (07:52→20:10)
--- NOTE | 2022-12-05 12:16 | P.PN ---
Subjective Date of Service: 12/05/22 Chief Complaint: COPD exacerbation Subjective: Improving (Patient is doing better still short of breath complaining of coughing) Review of Systems General: Weakness Respiratory: Cough, Shortness of Breath Physical Examination - Vital Signs Temperature: 98.6 F Blood Pressure: 96/57 Pulse: 60 Respirations: 16 Pulse Ox (%): 97 - Physical Exam General: Alert, Oriented x3 Respiratory: Clear to auscultation bilaterally, Diminished Cardiovascular: No edema, Regular rate/rhythm Assessment And Plan - Current Problems (Diagnosis) (1) COPD exacerbation Current Visit: No Status: Acute Plan: Patient is 62 years of age admitted with COPD exacerbation doing much better agree with discharge tomorrow on prednisone 10 mg twice a day for 2 weeks he will need a long-acting bronchodilator
[2022-12-05] MEDS: DULERA 200/5 (MOMETASONE/FORMOTEROL) INHALER IH SCH (20:11)
[2022-12-05] MEDS ORDERED: DULERA 200/5 (MOMETASONE/FORMOTEROL) INHALER IH SCH (21:00)
[2022-12-06] MEDS: IPRATROPIUM BROM 0.5MG/2.5ML NEB SCH ×3 (01:19→14:15)
[2022-12-06 06:23] LABS: Potassium 4.3 mEq/L (3.5-5.1)
[2022-12-06] MEDS: AZITHROMYCIN 250 MG TAB PO SCH (07:38)
[2022-12-06] MEDS: ENOXAPARIN 40 MG/0.4 ML SQ SCH (07:39)
[2022-12-06] MEDS: predniSONE 20 MG TAB PO SCH (07:39)
[2022-12-06] MEDS: DULERA 200/5 (MOMETASONE/FORMOTEROL) INHALER IH SCH (07:40)
[2022-12-06] MEDS: ROFLUMILAST 500 MCG TABLET PO SCH (07:43)
[2022-12-06 09:20] VITALS: O2SAT 95
[2022-12-06 12:01] VITALS: BP 107/69; TEMP 98.6
--- NOTE | 2022-12-06 14:28 | ECHO ---
HEIGHT: 6 ft 0 in WEIGHT: 145 lb 0 oz DATE OF STUDY: 12/06/[address]: Luis Black MD 2-DIMENSIONAL: YES M.MODE: YES DOPPLER: YES COLOR FLOW: YES TDS: PORTABLE: YES DEFINITY: BUBBLE STUDY: DIAGNOSIS: RESPIRATORY DISTRESS/ HISTORY OF CHRONIC OBSTRUCTIVE PULMONARY DISEASE CARDIAC HISTORY: CATHERIZATION: SURGERY: PROSTHETIC VALVE: PACEMAKER: MEASUREMENTS (cm) DIASTOLIC (NORMALS) SYSTOLIC (NORMALS) IVSd 0.9 (0.6-1.2) LA Diam (1.9-4.0) LVEF 77% LVIDd 3.2 (3.5-5.7) LVIDs 1.8 (2.0-3.5) %FS 44% LVPWd 0.9 (0.6-1.2) Ao Diam 2.9 (2.0-3.7) 2 DIMENSIONAL ASSESSMENT: RIGHT ATRIUM: NORMAL LEFT ATRIUM: NORMAL RIGHT VENTRICLE: NORMAL LEFT VENTRICLE: NORMAL TRICUSPID VALVE: MILD TRICUSPID REGURGITATION MITRAL VALVE: NORMAL PULMONIC VALVE: NORMAL AORTIC VALVE: NORMAL PERICARDIAL EFFUSION: NONE AORTIC ROOT: NORMAL LEFT VENTRICULAR WALL MOTION: NORMAL DOPPLER/COLOR FLOW: MILD TRICUSPID REGURGITATION COMMENTS: 1. NORMAL LEFT VENTRICULAR EJECTION FRACTION GREATER THAN 60% 2. NORMAL WALL MOTION 3. NORMAL DIASTOLIC FUNCTION 4. TRACE TRICUSPID REGURGITATION TECHNOLOGIST: BELKIS BELL
== END 2022-12-06 17:00 | disposition home or self-care (01) | DRG 190 ==
LOC: ER 15:12 → 4TH 19:08
PROVIDERS: ADMIT Internal Medicine; ATTEND Hospitalist
DX: J44.1 Chronic obstructive pulmonary disease with (acute) exacerbation (principal); J96.21 Acute and chronic respiratory failure with hypoxia; R65.10 Systemic inflammatory response syndrome (SIRS) of non-infectious origin without acute organ dysfunction; F17.210 Nicotine dependence, cigarettes, uncomplicated; Z88.5 Allergy status to narcotic agent; Z88.8 Allergy status to other drugs, medicaments and biological substances; Z89.421 Acquired absence of other right toe(s); Z20.822 Contact with and (suspected) exposure to COVID-19
CPT/HCPCS: 36415; 71046; 71275; 80048; 80076; 83690; 83735; 83880; 84484; 85025; 85379; 85610; 85730; 87804; 87811; 93005; 93306; 94010; 94640; 96365; 96367; 96375; 99285; J0692; J1650; J2405; J2930; J3475; J3535; J7512; J7605; J7613; J7644; Q9967

== ENCOUNTER 2024-09-03 01:43 | Inpatient (IN) | payer OTHER ==
[2024-09-03] MEDS ORDERED: IPRATROPIUM BROM 0.5MG/2.5ML ONE (01:57)
[2024-09-03] MEDS ORDERED: METHYLPREDNISOLONE 125 MG INJ ONE (01:57)
[2024-09-03] MEDS ORDERED: ONDANSETRON 4 MG/2 ML VIAL ONE (01:57)
[2024-09-03] MEDS ORDERED: CEFEPIME 2 GM VIAL ONE (01:57)
[2024-09-03] MEDS ORDERED: ALBUTEROL 2.5 MG/3 ML NEB SOL ONE (01:57)
[2024-09-03] MEDS ORDERED: VANCOMYCIN 1 GM/VIAL ONE (01:57)
[2024-09-03] MEDS ORDERED: NA CHLORIDE 0.9% 100 ML ONE (01:58)
[2024-09-03] MEDS ORDERED: NA CHLORIDE 0.9% 250 ML ONE (01:58)
[2024-09-03] MEDS ORDERED: GUAIFENESIN/DM 5 ML UCUP ONE (01:58)
--- OUTSIDE RECORDS SUMMARY | 2024-09-03 02:03 | XMS REPORT | Continuity of Care Document ---
Author Name Unknown Address [address] [facility] [address] [place] [address] [facility] Address [address] 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 Name Role Phone BETTY SCHMITZ Primary Care Physician UnavailAMIE Medina Attending Clinician UnavailAMIE Medina Attending Clinician Unavailab ortega OBI-KARAN, JON Attending Clinician Unavailab ortega OBIMaryKARAN, JON Attending Clinician UnavailAmie Medina DO Attending Clinician [phone] BETTY SCHMITZ Attending Clinician Unavailable Brent MARQUEZ, Conchita Gatica Attending Clinician Unavail FLORIAN Tejada Attending Clinician Unavailable Malena LOCO, Ced Lutz Attending Clinician [phone] Florian Nguyen DO Attending Clinician [phone] Doctor Unassigned, [place] Attending Clinician U Kiana Arango LVN Attending Clinician UnavailBetty Barrientos Attending Clinician [phone] Kendra LOCO, Lesley Attending Clinician +[phone] Anthony MARQUEZ, Ewa Jimenez Attending Clinician Unavaila annalisa Jones RN, Marilia Jimenez Attending Clinician Unavail able Abby LOCO, Polo Lutz Attending Clinician +[phone] Cassy LOCO, Kedar Attending Clinician [phone] Stephen RT, Lalitha Sales Attending Clinician Unavailab STEVEN Jalloh Attending Clinician Unavailable Sukhjinder SCHULTE, Kathie Attending Clinician Unavailab ERIC Meyers Attending Clinician Jimy Pacheco MD, Eric Brown Attending Clinician [phone] SHERITA MAGAÑA Attending Clinician Unavailable Sherita Chi Attending Clinician + [phone] Jasmine Doshi RN Attending Clinician Unavailable Ajay Alvarez MD Attending Clinician [phone] Saloómn MARQUEZ, Areli aMravilla Attending Clinician [phone] Doctor Unassigned, [place] Attending Clinician U best Wilson RN, Mohini Lutz Attending Clinician [phone] Ainsley CROWEP, Betty Attending Clinician + [phone] Tico MARQUEZ, Jasmine Attending Clinician Unavailable Salomón MARQUEZ, Areli Maravilla Attending Clinician [phone] CODEYTALGONZALO Attending Clinician Unavailable GONZALO DAVENPORT Attending Clinician Unavailable Deonna LOCO, Julieta Attending Clinician + [phone] Walter Hdez MD Attending Clinician + [phone] Faculty, Pulmonary Attending Clinician Unavailab shannon Jones RN, Marilia Jimenez Attending Clinician Unavail able KEDAR MADERA Attending Clinician Unavailable Nakul Ortiz MD Attending Clinician + [phone] Elsie Ramos MD Attending Clinician +[phone] Kedar Madera MD Attending Clinician +[phone] Ibis Hunter MD Attending Clinician [phone] Vanesa Gardner MA Attending Clinician Unavaila GILBERT Abdullahi Attending Clinician Unavailable Harriet Sanchez Attending Clinician MARGARET Ochoa Attending Clinician Unavaila SABRINA Sánchez Attending Clinician Unavailable SABRINA VILLAREAL Attending Clinician Unavailable Steven Morales MD Attending Clinician + [phone], [facility] Attending Clinician Unavailable Lab, Ang - Db Attending Clinician Unavailable Ronn LOCO, Judie Gilman Attending Clinician + [phone] ELSIE RAMOS Attending Clinician Unavailable Shashi CARDIOLOGY RN, Ewa Jimenez Attending Clinician [phone] VINCENZO PORTILLO Attending Clinician Unavaildalila Guy MD, Ced Lutz Attending Clinician + [phone] Bandar LOCO, Vincenzo Freeman Attending Clinician [phone] Amie Shen DO Attending Clinician [phone] Andie Jose DO Attending Clinician [phone] Artur MARQUEZ, Panfilo Attending Clinician Unavailab ABIGAIL Stein Attending Clinician Unavailable Renate LOCO, Mariel Attending Clinician +[phone] Abigail Garcia DO Attending Clinician +[phone] Ashlee Song LVN Attending Clinician + [phone] Lynette Stoddard Attending Clinician [phone] LYNETTE MCCLURE Attending Clinician Unavailable Magdi ANDREW, Nina French Attending Clinician Sherita Chi Attending Clinician +[phone] NINA WORTHINGTON Attending Clinician Unav vanda Gutierrez RN, Ean Jimenez Attending Clinician Unavaila annalisa Mitchell RT, Lalitha C Attending Clinician Unavailab shannon Maldonado MD, Brittany Mcneil Attending Clinician + Florian Nguyen DO Attending Clinician [phone] Leonela Aceves Attending Clinician [phone] MALENA CED A Attending Clinician UnavailWili Crane MD Attending Clinician [phone] Louie Mensah LVN Attending Clinician Jimy Monge MD, Matthew Sales Attending Clinician [phone] Eric Pacheco MD Attending Clinician + [phone] JAYESH GODDARD Attending Clinician Unavailable Jayesh Goddard DO Attending Clinician +[phone] Margret MARQUEZ, Joel A Attending Clinician Unavail able NEGRO ST Attending Clinician Unavailable Negro St MD Attending Clinician [phone] Osiris SMITH Attending Clinician Unavailable Osiris Armas Attending Clinician +[phone] Yadira MARQUEZ, Imtiaz R Attending Clinician UnavailJUDIE Pérez Attending Clinician Unavailable LEONELA COPPOLA Attending Clinician Unavailable Jean-Paul LOCO, Kamlesh Attending Clinician + [phone] Nghia LOCO, Rusty Attending Clinician +[phone] Onel Segundo DPM Attending Clinician +[phone] Fuentes Cabrera MD Attending Clinician +[phone] RUSTY SANCHEZ Attending Clinician Unavailable MASSIMO BARRON Attending Clinician Unavailab Massimo Sanchez DO Attending Clinician + [phone] Pob, [facility] Main Attending Clinician Unavaildalila Cho RN, Ashlee Cobb Attending Clinician Unavailab le Rosalee, Adc Test Attending Clinician Unavailable aNte Sanchez MD Attending Clinician [phone] NATE SANCHEZ Attending Clinician Unavailable Lynette Ferraro PA-C Attending Clinician [phone] Unknown, Attending Attending Clinician Unavailab le UNKNOWN, ATTENDING Attending Clinician Unavailab shannon Duff PATCHING MACHINE OPERATOR, Mandie Marcelino Attending Clinician [phone] Christiana Madrid RN Attending Clinician UnavailGonzalo Chin DO Attending Clinician +[phone] POLO HARRIS Attending Clinician Unavailable MATTHEW MONGE Attending Clinician Unavailable P[facility], [facility] Attending Clinician Unav FLORIAN Landrum Admitting Clinician Unavailable Florian Nguyen DO Admitting Clinician [phone] KEDAR MADERA Admitting Clinician Unavailable Kedar Madera MD Admitting Clinician [phone] GONZALO DAVENPORT Admitting Clinician Unavailable IBIS HUNTER Admitting Clinician Unavailable Ibis Hunter MD Admitting Clinician [phone] GILBERT RODRÍGUEZ Admitting Clinician Unavailable Kedar Madera MD Admitting Clinician [phone] ELSIE RAMOS Admitting Clinician Unavailable VINCENZO PORTILLO Admitting Clinician UnavailVincenzo Mcgrath MD Admitting Clinician [phone] ABIGAIL GARCIA Admitting Clinician Unavailable Abigail Garcia DO Admitting Clinician [phone] SHERITA MAGAÑA Admitting Clinician Unavailable Florian Nguyen DO Admitting Clinician [phone] CED GUY Admitting Clinician UnavailJAYESH Fletcher Admitting Clinician Unavailable Osiris SMITH Admitting Clinician Unavailable JUDIE GARCIA Admitting Clinician Unavailable Rusty Sanchez MD Admitting Clinician [phone] MASSIMO BARRON Admitting Clinician Unavailab MATTHEW Cabral Admitting Clinician Unavailable Payers Payer Name Policy Type Policy Number Effective Date Expirati on Date Source MEDICARE PART A \\T\\ B [id number] 2022 00:00:00 Problems Condition Name Condition Details Condition Category Status Onset Date Resolution Date Last Treatment Date Treating Clinician Comments Source E46 Unspecifie d severe protein-ca braydon malnutriti on E46 Unspecifie d severe protein-ca braydon malnutriti on Disease Active 3-12 00:00: 00 [facility] Acute respirator y failure with hypoxia and hypercapni a Acute respirator y failure with hypoxia and hypercapni a Disease Active 3-11 00:00: 00 [facility] COPD exacerbati on COPD exacerbati on Disease Active 8-03 00:00: 00 [facility] Dyspnea, unspecifie d type Dyspnea, unspecifie d type Disease Active 6-15 00:00: 00 [facility] Peripheral arterial disease Peripheral arterial disease Disease Active 3-21 00:00: 00 [facility] Other form of dyspnea Other form of dyspnea Disease Active 1-02 00:00: 00 [facility] SOB (shortness of breath) SOB (shortness of breath) Disease Active 2022-04 2-21 00:00: 00 [facility] Critical limb ischemia of left lower extremity Critical limb ischemia of left lower extremity Disease Active 2022-04 1-30 00:00: 00 [facility] Cystic fibrosis Cystic fibrosis Disease Active 2022-04 0-23 00:00: 00 [facility] Acute hypoxemic respirator y failure Acute hypoxemic respirator y failure Disease Active 8-28 00:00: 00 [facility] Chronic obstructiv e pulmonary disease, unspecifie d COPD type Chronic obstructiv e pulmonary disease, unspecifie d COPD type Disease Active 7-17 00:00: 00 [facility] COPD with acute exacerbati on COPD with acute exacerbati on Disease Active 6-25 00:00: 00 [facility] Acute exacerbati on of chronic obstructiv e pulmonary disease (COPD) Acute exacerbati on of chronic obstructiv e pulmonary disease (COPD) Disease Active 6-18 00:00: 00 [facility] Shortness of breath Shortness of breath Disease Active 5-21 00:00: 00 [facility] Smoker Smoker Disease Active 1-24 00:00: 00 [facility] COPD (chronic obstructiv e pulmonary disease) COPD (chronic obstructiv e pulmonary disease) Disease Active 3-19 00:00: 00 [facility] Osteomyeli tis Osteomyeli tis Disease Active 3-15 00:00: 00 [facility] Nocturia associated with benign prostatic hyperplasi a Nocturia associated with benign prostatic hyperplasi a Disease Active 2020-04 0-22 00:00: 00 [facility] Chronic obstructiv e lung disease Chronic obstructiv e lung disease Disease Active 2020-04 0-05 00:00: 00 [facility] Hypoxia Hypoxia Disease Active 2017-04 2- 00:00: 00 [facility] Allergies, Adverse Reactions, Alerts Allergy Name Allergy Type Status Severity Reaction(s) Onset Date Inactive Date Treating Clinician Comments Source PROTAMIN E DRUG INGREDI Active Other-Cmnt 07-22 00:00: 00 [facility] Protamin e Propensi ty to adverse reaction s Active Other - See comments 07-22 00:00: 00 Hypotensi on and bradycard ia [facility] CODEINE DRUG INGREDI Active N/V 05-18 00:00: 00 [facility] Codeine Propensi ty to adverse reaction s Active Nausea and/or Vomiting 05-18 00:00: 00 [facility] Codeine Drug Allergy Active Unknown - See comments 05-18 00:00: 00 [facility] Social History Social Habit Start Date Stop Date Quantity Comments Source History SDOH Social Connections Get Together [facility] History SDOH Social Connections [facility] History SDOH Social Connections Membership [facility] History SDOH Social Connections Meetings [facility] History SDOH Physical Activity DPW [facility] Alcohol Std Drinks [facility] History SDOH Alcohol Binge [facility] History of Occupation [facility] Alcoholic beverage intake 2024-07-21 00:00:00 2024-07-21 00:00:00 Ex-drinker (finding) [facility] Cigarettes smoked current (pack per day) - Reported 2023-12-01 00:00:00 2023-12-01 00:00:00 [facility] Cigarette pack-years 2023-12-01 00:00:00 2023-12-01 00:00:00 [facility] Tobacco use and exposure 2023-12-01 00:00:00 2023-12-01 00:00:00 Smokeless tobacco non-user [facility] Tobacco Comment 2023-12-01 00:00:00 2023-12-01 00:00:00 Patient states he "smokes every once in awhile" [facility] Alcohol intake 2023-07-24 00:00:00 2023-07-24 00:00:00 Current drinker of alcohol (finding) [facility] History of Social function 2023-07-23 00:00:00 2023-07-23 00:00:00 [facility] Education 2022-12-25 00:00:00 2022-12-25 00:00:00 3 [facility] History SDOH Social Connections Phone 2022-10-16 00:00:00 2022-10-16 00:00:00 5 [facility] History SDOH Social Connections Living 2022-10-16 00:00:00 2022-10-16 00:00:00 5 [facility] History SDOH Physical Activity MPS 2022-10-16 00:00:00 2022-10-16 00:00:00 0 [facility] History SDOH Financial 2022-10-16 00:00:00 2022-10-16 00:00:00 4 [facility] History SDOH Food Worry 2022-10-16 00:00:00 2022-10-16 00:00:00 1 [facility] History SDOH Food Scarcity 2022-10-16 00:00:00 2022-10-16 00:00:00 1 [facility] History SDOH Transport Med 2022-10-16 00:00:00 2022-10-16 00:00:00 2 [facility] History SDOH Transport Non-Med 2022-10-16 00:00:00 2022-10-16 00:00:00 2 [facility] History SDOH Housing Unable to Pay 2022-10-16 00:00:00 2022-10-16 00:00:00 2 [facility] History SDOH Housing Places Lived 2022-10-16 00:00:00 2022-10-16 00:00:00 1 [facility] History SDOH Housing Homeless Last Year 2022-10-16 00:00:00 2022-10-16 00:00:00 2 [facility] History SDOH Alcohol Frequency 2022-10-16 00:00:00 2022-10-16 00:00:00 1 [facility] Alcohol Comment 2022-10-15 00:00:00 2022-10-15 00:00:00 social [facility] Exposure to SARS-CoV-2 (event) 2022-09-07 00:00:00 2022-09-17 00:52:00 Not sure [facility] History of tobacco use 1969-06-17 00:00:00 2019-06-17 00:00:00 Passive smoker [facility] Sex assigned at 1960 00:00:00 1960 00:00:00 [facility] Smoking Status Start Date Stop Date Source Smokes tobacco daily 2023-12-01 00:00:00 [facility] Ex-smoker 2022-10-22 00:00:00 2022-10-22 [facility]00[facility] Ordered Medication Name Filled Medication Name Start Date Stop Date Current Medication? Ordering Clinician Indication Dosage Frequency Signature (SIG) Comments Components Source ipratropium -albuteroL 0.5 mg-3 mg(2.5 mg base)/3 mL nebulizer solution 08-25 00:00: 00 Yes [id number] 3mL Inhale 3 mL every 6 (six) hours as needed for Wheezing or Shortness of Breath. [facility] foLIC acid 1 mg tablet 07-28 00:00: 00 Yes [id number] 1mg Take 1 tablet by mouth in the morning. [facility] vitamin B-12 1,000 mcg tablet 07-28 00:00: 00 Yes [id number] 1000ug Take 1 tablet by mouth in the morning. [facility] citalopram 10 mg tablet 07-28 00:00: 00 08-28 04:59 :00 Yes [id number] 10mg Take 1 tablet by mouth in the morning for 30 days. [facility] pramipexole 0.125 mg tablet 07-27 00:00: 00 08-27 04:59 :00 Yes [id number] .125mg Take 1 tablet by mouth at bedtime for 30 days. [facility] ipratropium -albuteroL 0.5 mg-3 mg(2.5 mg base)/3 mL nebulizer solution 07-27 00:00: 00 08-25 00:00 :00 No [id number] 3mL Inhale 3 mL every 4 (four) hours as needed for Wheezing or Shortness of Breath. [facility] amoxicillin -pot clavulanate 875-125 mg per tablet 07-27 00:00: 00 08-01 04:59 :00 Yes [id number] 1{tbl} Take 1 tablet by mouth every 12 (twelve) hours for 4 days. [facility] pantoprazol e (PROTONIX) EC tablet 40 mg 07-25 14:00: 00 07-27 16:42 :34 No 40mg 40 mg, Oral, DAILY, First dose on Sun07/25/24 at 0900, Until Discontinu ed, Routine [facility] pramipexole (MIRAPEX) tablet 0.125 mg 07-25 02:00: 00 Yes .125mg 0.125 mg, Oral, QHS, First dose on Sun07/24/24 at 2100, Until Discontinu ed, Routine [facility] amoxicillin -pot clavulanate (AUGMENTIN) 875-125 mg per tablet 1 tablet 07-24 23:00: 00 07-31 22:59 :00 Yes 1{tbl} 1 tablet, Oral, Q12H ABX, 14 doses, First dose on Mary 07/24/24 at 1800, Last dose on Mary 07/31/24 at 0600, Routine, Reason for Anti-Infec tive: Documented Infection, Documented Infection Site: Respirator y, Duration of Therapy: Other (see Comments) [facility] azithromyci n (ZITHROMAX) tablet 500 mg 07-24 23:00: 00 07-26 22:24 :00 No 500mg 500 mg, Oral, Q24H, 3 doses, First dose on Mary 07/24/24 at 1800, Last dose on Sun07/26/24 at 1800, NAEEM, Reason for Anti-Infec tive: Documented Infection, Documented Infection Site: Respirator y, Duration of Therapy: Other (see Comments) [facility] acetylcyste ine (MUCOMYST) 200 mg/mL (20 %) inhalation solution 800 mg 07-24 23:00: 00 07-25 22:59 :00 No 4mL 800 mg (4 mL), Inhalation , Q6H, 4 doses, First dose on Sun07/24/24 at 2000, Last dose on Sun07/25/24 at 1200, [facility] B-12 (CYANOCOBAL JACKSON) tablet 1,000 mcg 07-24 22:15: 00 Yes 1000ug 1,000 mcg, Oral, DAILY, First dose on Sun07/24/24 at 1715, Until Discontinu ed, Routine [facility] foLIC acid (FOLATE) tablet 1 mg 07-24 22:15: 00 Yes 1mg 1 mg, Oral, DAILY, First dose on Sun07/24/24 at 1715, Until Discontinu ed, Routine [facility] citalopram (CELEXA) tablet 10 mg 07-24 20:00: 00 Yes 10mg 10 mg, Oral, DAILY, First dose on Sun07/24/24 at 1500, Until Discontinu ed, Routine [facility] midazolam (VERSED) injection 1 mg 07-23 18:46: 30 07-27 16:42 :34 No 1mg 1 mg, IV Push, TIDPRN, Starting on Sun07/23/24 at 1346, Until Sun07/27/24 at 1142, Routine, Anxiety, Agitation [facility] pantoprazol e (PROTONIX) 40 mg in NaCl 0.9% (NS) 10 mL syringe 07-23 13:00: 00 07-24 21:47 :11 No 40mg 40 mg, Slow IV Push, Administer over 2 Minutes, Q12H, First dose on Sun07/23/24 at 0800, Until Discontinu ed, [facility] alum-mag hydroxide-s imeth (MAG-AL PLUS) 200-200-20 mg/5 mL suspension 30 mL 07-23 08:02: 36 07-27 16:42 :34 No 30mL 30 mL, Oral, Q6HPRN, Starting on Sun07/23/24 at 0302, Until Sun07/27/24 at 1142, Routine, Indigestio n, Heartburn, Gas [facility] atorvastati n (LIPITOR) tablet 40 mg 07-23 02:00: 00 07-27 16:42 :34 No 40mg 40 mg, Oral, QHS, First dose on Sun07/22/24 at 2100, Until Discontinu ed, Routine [facility] levoFLOXaci n in D5W (LEVAQUIN) 750 mg/150 mL Piggyback 750 mg 07-22 22:00: 00 07-22 23:07 :00 No 750mg 750 mg, IV Piggyback, ONCE, 1 dose, On Sun07/22/24 at 1700, Administer over 90 Minutes, 150 mL, Reason for Anti-Infec tive: Documented Infection, Documented Infection Site: Respirator y, Duration of Therapy: Once (ED) [facility] ipratropium -albuteroL (DUONEB) 0.5 mg-3 mg(2.5 mg base)/3 mL nebulizer solution 3 mL 07-22 17:00: 00 Yes 3mL 3 mL, Inhalation , Q4H, First dose (after last modificati on) on Sun07/22/24 at 1200, Until Discontinu ed, NAEEM [facility] predniSONE (DELTASONE) tablet 40 mg 07-22 15:00: 00 07-27 16:42 :34 No 40mg 40 mg, Oral, DAILY, First dose on Sun07/22/24 at 1000, Until Discontinu ed, Routine [facility] enoxaparin (LOVENOX) injection 40 mg 07-22 14:00: 00 07-27 16:42 :34 No 40mg 40 mg, Subcutaneo us, DAILY, First dose on Sun07/22/24 at 0900, Until Discontinu ed, Routine [facility] piperacilli n-tazobacta m (ZOSYN) 3.375 g in NaCl 0.9% (NS) 100 mL MINI-BAG 07-22 06:00: 00 07-24 02:03 :00 No 3.375g 3.375 g, IV Piggyback, Q8H ABX, 6 doses, First dose (after last reorder) on Sun07/22/24 at 0100, Last dose on Sun07/23/24 at 1700, Administer over 4 Hours, 100 mL, Reason for Anti-Infec tive: Documented Infection, Documented Infection Site: Respirator y, Duration of Therapy: Once (ED) [facility] methylPREDN ISolone sod succ (SOLU-MEDRO L (PF)) injection 40 mg 07-22 05:00: 00 07-22 14:55 :35 No 40mg 40 mg, Intravenou s, Q6H, First dose on Sun07/22/24 at 0000, Until Discontinu ed, 1 mL [facility] ipratropium -albuteroL (DUONEB) 0.5 mg-3 mg(2.5 mg base)/3 mL nebulizer solution 3 mL 07-22 02:30: 00 07-22 12:34 :00 No 3mL 3 mL, Inhalation , Q6H, 3 doses, First dose (after last modificati on) on Sun07/21/24 at 2130, Last dose on Sun07/22/24 at 0600, NAEEM [facility] dexMEDEtomi dine 400 mcg in 0.9 % NaCl 100 mL (PRECEDEX) RTU IV infusion 07-22 01:42: 00 07-24 19:47 :27 No 0ug/kg/ h 0-1.5 mcg/kg/hr ?61.7 kg (0-23.1375 mL/hr, rounded to 0-23.14 mL/hr), IV Infusion, CONTINUOUS , Starting on Sun07/21/24 at 2045 [facility] NaCl 0.9% (NS) bolus infusion 1,000 mL 07-21 22:45: 00 07-21 23:32 :00 No 1000mL at 999 mL/hr, 1,000 mL, IV Infusion, ONCE, 1 dose, On Sun07/21/24 at 1745, STAT [facility] vancomycin (VANCOCIN) 1,000 mg in NaCl 0.9% (NS) 250 mL VIAL-MATE IV piggyback 07-21 22:30: 00 07-21 23:59 :00 No 15mg/kg 1,000 mg (rounded from 925.5 mg = 15 mg/kg ?61.7 kg), IV Piggyback, ONCE, 1 dose, On Sun07/21/24 at 1730, Administer over 60 Minutes, 250 mL, Reason for Anti-Infec tive: Documented Infection, Documented Infection Site: Respirator y, Duration of Therapy: Once (ED) [facility] iopamidol (ISOVUE 370-500 mL) injection 80 mL 07-21 22:00: 00 07-21 22:00 :00 No [id number] 80mL 80 mL, Intravenou s, ONCE, 1 dose, On Sun07/21/24 at 1700, Routine [facility] levoFLOXaci n in D5W (LEVAQUIN) 750 mg/150 mL Piggyback 750 mg 07-21 21:45: 00 07-21 23:33 :00 No 750mg 750 mg, IV Piggyback, ONCE, 1 dose, On Sun07/21/24 at 1645, Administer over 90 Minutes, 150 mL, Reason for Anti-Infec tive: Documented Infection, Documented Infection Site: Respirator y, Duration of Therapy: Once (ED) [facility] piperacilli n-tazobacta m (ZOSYN) 3.375 g in NaCl 0.9% (NS) 100 mL MINI-BAG 07-21 21:45: 00 07-21 22:35 :00 No 3.375g 3.375 g, IV Piggyback, ONCE, 1 dose, On Sun07/21/24 at 1645, Administer over 30 Minutes, 100 mL, Reason for Anti-Infec tive: Documented Infection, Documented Infection Site: Respirator y, Duration of Therapy: Once (ED) [facility] LORazepam (ATIVAN) injection 1 mg 07-21 20:45: 07-21 20:34 :00 No 1mg 1 mg, Slow IV Push, ONCE, 1 dose, On Sun07/21/24 at 1545, STAT [facility] methylPREDN ISolone sod succ (SOLU-MEDRO L (PF)) injection 125 mg 07-21 20:30: 00 07-21 20:38 :00 No 125mg 125 mg, Intravenou s, ONCE, 1 dose, On Sun07/21/24 at 1530, NAEEM [facility] ipratropium -albuteroL (DUONEB) 0.5 mg-3 mg(2.5 mg base)/3 mL nebulizer solution 3 mL 07-21 20:30: 07-21 20:48 :00 No 3mL 3 mL, Inhalation , Q10M, 3 doses, First dose on Sun07/21/24 at 1530, Last dose on Sun07/21/24 at 1550, NAEEM [facility] aspirin tablet 325 mg 07-21 20:30: 07-21 20:44 :00 No 325mg 325 mg, Oral, ONCE, 1 dose, On Sun07/21/24 at 1530, STAT [facility] atorvastati n 40 mg tablet 07-13 00:00: 08-13 04:59 :00 Yes [id number] 40mg Take 1 tablet by mouth at bedtime for 30 days. [facility] midodrine 10 mg tablet 07-13 00:00: 08-13 04:59 :00 Yes [id number] 10mg Take 1 tablet by mouth in the morning and 1 tablet at noon and 1 tablet in the evening. Do all this for 30 days. [facility] predniSONE 20 mg tablet 07-13 00:00: 00 07-27 00:00 :00 No [id number] Take 2 tablets by mouth daily for 1 day, THEN 1 tablet daily for 4 days, THEN 0.5 tablets daily for 4 days. [facility] benzonatate 100 mg capsule 07-13 00:00: 07-27 00:00 :00 No [id number] 100mg Take 1 capsule by mouth 3 (three) times daily as needed for Cough. [facility] arformotero L 15 mcg/2 mL nebulizer solution 2-14 00:00: 00 Yes [id number] 15ug Use 2 mL as directed in the morning and 2 mL in the evening. [facility] ipratropium -albuteroL 0.5 mg-3 mg(2.5 mg base)/3 mL nebulizer solution 2-14 00:00: 00 07-27 00:00 :00 No [id number] 3mL Inhale 3 mL every 6 (six) hours as needed for Wheezing. [facility] ipratropium -albuteroL 0.5 mg-3 mg(2.5 mg base)/3 mL nebulizer solution 12 00:00: 00 07-27 00:00 :00 No [id number] 3mL Inhale 3 mL every 4 (four) hours as needed for Wheezing or Shortness of Breath. [facility] ipratropium -albuteroL 0.5 mg-3 mg(2.5 mg base)/3 mL nebulizer solution 05-20 00:00: 00 06-11 00:00 :00 No [id number] 3mL INHALE 3 ML EVERY 4 (FOUR) HOURS NEEDED FOR WHEEZING OR SHORTNESS OF BREATH. [facility] ipratropium -albuteroL 0.5 mg-3 mg(2.5 mg base)/3 mL nebulizer solution 1-17 00:00: 00 Yes [id number] 3mL Inhale 3 mL every 4 (four) hours as needed for Wheezing or Shortness of Breath. [facility] ipratropium -albuteroL 0.5 mg-3 mg(2.5 mg base)/3 mL nebulizer solution 2023-04 2 00:00: 00 05-20 00:00 :00 No [id number] 3mL Inhale 3 mL every 4 (four) hours as needed for Wheezing or Shortness of Breath. [facility] iopamidol (ISOVUE 370-500 mL) injection 80 mL 2023-04 00:15: 00 03-04 00:15 :00 No [id number] 80mL 80 mL, Intravenou s, ONCE, 1 dose, On Sun03/03/24 at 1815, Routine [facility] arformotero L (BROVANA) 15 mcg/2 mL nebulizer solution 2023-04 00:00: 00 04-04 05:59 :00 No [id number] 15ug Use 2 mL as directed in the morning and 2 mL in the evening. Do all this for 30 days. [facility] nicotine 21 mg/24 hr patch 2023-04 00:00: 00 04-02 05:59 :00 No [id number] 1{patch } Apply 1 Patch to area(s) every 24 (twenty-fo ur) hours for 28 days. [facility] LORazepam (ATIVAN) injection 0.5 mg 2023-04 19:15: 00 03-03 23:05 :00 No .5mg 0.5 mg, Slow IV Push, ONCE, 1 dose, On Sun03/03/24 at 1315, Routine [facility] cefTRIAXone (ROCEPHIN) 1,000 mg in water for injection, sterile 10 mL IV Push 2023-04 15:30: 00 03-04 22:02 :43 No 1000mg 1,000 mg, Intravenou s, Q24H ABX, 7 doses, First dose on Sun03/02/24 at 0930, Last dose on 03/08/24 at 0930, 10 mL, Reason for Anti-Infec tive: Documented Infection, Documented Infection Site: Respirator y, Duration of Therapy: 7 days [facility] clopidogreL (PLAVIX) 75 mg tablet 75 mg 2023-04 15:00: 00 03-04 22:02 :43 No 75mg 75 mg, Oral, DAILY, First dose on Sun03/02/24 at 0900, Until Discontinu ed, Routine [facility] predniSONE (DELTASONE) tablet 40 mg 2023-04 15:00: 00 03-04 22:02 :43 No 40mg 40 mg, Oral, DAILY, 4 doses, First dose on Sun03/02/24 at 0900, Last dose on Sun03/05/24 at 0900, Routine [facility] pramipexole (MIRAPEX) tablet 0.125 mg 2023-04 02:00: 00 03-04 22:02 :43 No .125mg 0.125 mg, Oral, QHS, First dose on 03/01/24 at 2100, Until Discontinu ed, Routine [facility] nicotine (NICODERM) 21 mg/24 hr patch 1 Patch 2023-04 00:30: 00 Yes 1{patch } 1 Patch, Topical, Administer over 24 Hours, Q24H, First dose on 03/01/24 at 1930, Until Discontinu ed, Routine [facility] enoxaparin (LOVENOX) injection 40 mg 2023-04 22:00: 00 03-04 22:02 :43 No 40mg 40 mg, Subcutaneo us, DAILY, First dose on Sun03/01/24 at 1700, Until Discontinu ed, Routine [facility] azithromyci n (ZITHROMAX) tablet 500 mg 2023-04 20:00: 00 03-03 15:49 :00 No 500mg 500 mg, Oral, DAILY, 3 doses, First dose on Sun03/01/24 at 1500, Last dose on Sun03/03/24 at 0900, NAEEM, Reason for Anti-Infec tive: Documented Infection, Documented Infection Site: Respirator y, Duration of Therapy: 7 days [facility] ipratropium -albuteroL (DUONEB) 0.5 mg-3 mg(2.5 mg base)/3 mL nebulizer solution 3 mL 2023-04 17:00: 00 03-04 22:02 :43 No 3mL 3 mL, Inhalation , Q4H, First dose on Sun03/01/24 at 1200, Until Discontinu ed, Routine [facility] guaiFENesin 100 mg/5 mL solution 200 mg 2023-04 15:22: 24 03-04 22:02 :43 No 200mg 200 mg, Oral, Q6HPRN, Starting on 03/01/24 at 1022, Until Tu03/04/24 at 1602, Routine, Cough [facility] ondansetron (ZOFRAN (PF)) injection 4 mg 2023-04 15:22: 09 03-04 22:02 :43 No 4mg [facility] acetaminoph en (TYLENOL) tablet 650 mg 2023-04 15:21: 58 03-04 22:02 :43 No 650mg [facility] albuterol (PROVENTIL) 2.5 mg /3 mL (0.083 %) nebulizer solution 2.5 mg 2023-04 14:15: 00 03-01 14:10 :00 No 2.5mg 2.5 mg, Inhalation , ONCE, 1 dose, On 03/01/24 at 0915, STAT [facility] ipratropium -albuteroL (DUONEB) 0.5 mg-3 mg(2.5 mg base)/3 mL nebulizer solution 6 mL 2023-04 13:45: 00 03-01 12:35 :00 No 6mL 6 mL, Inhalation , ONCE NOW, 1 dose, On 03/01/24 at 0845, Routine [facility] magnesium sulfate in water 2 gram/50 mL (4 %) infusion 2 g 2023-04 13:30: 00 03-01 13:26 :00 No 2g 2 g, IV Piggyback, Administer over 20 Minutes, ONCE, 1 dose, On 03/01/24 at 0830, Routine [facility] dexamethaso ne sod phos PF injection 10 mg 2023-04 12:45: 00 03-01 12:38 :00 No 10mg 10 mg, Slow IV Push, ONCE, 1 dose, On 03/01/24 at 0745, 1 mL [facility] methylPREDN ISolone 4 mg tablets 2023-04 00:00: 00 Yes [id number] Take by mouth SEE-INSTRU CTIONS. follow package directions [facility] doxycycline hyclate 100 mg capsule 2023-04 00:00: 00 Yes [id number] 100mg Take 1 capsule by mouth in the morning and 1 capsule in the evening. [facility] ipratropium -albuteroL 0.5 mg-3 mg(2.5 mg base)/3 mL nebulizer solution 2023-04 0 00:00: 00 05-16 00:00 :00 No [id number] 3mL Inhale 3 mL every 4 (four) hours as needed for Wheezing or Shortness of Breath. [facility] ipratropium -albuteroL 0.5 mg-3 mg(2.5 mg base)/3 mL nebulizer solution 2023-04 00:00: 00 04-29 00:00 :00 No [id number] 3mL Inhale 3 mL every 4 (four) hours as needed for Wheezing or Shortness of Breath. [facility] ALPRAZolam (XANAX) 0.5 mg tablet 12-18 00:00: 00 Yes [id number] .5mg Take 1 tablet by mouth in the morning and 1 tablet in the evening. [facility] clopidogreL (PLAVIX) 75 mg tablet 75 mg 12-09 14:00: 00 Yes 75mg [facility] clopidogreL 75 mg tablet 12-09 00:00: 00 07-27 00:00 :00 No [id number] 75mg Take 1 tablet by mouth in the morning. [facility] ALPRAZolam (XANAX) tablet 0.25 mg 12-02 16:45: 00 12-02 17:02 :00 No .25mg 0.25 mg, Oral, ONCE, 1 dose, On Sun12/03/23 at 1145, NAEEM [facility] pramipexole 0.125 mg tablet 12-02 13:00: 35 07-27 00:00 :00 No .125mg Take 1 tablet by mouth at bedtime as needed for Other (restless legs). [facility] pramipexole (MIRAPEX) tablet 0.125 mg 12-02 02:00: 00 Yes .125mg 0.125 mg, Oral, QHS, First dose on 12/02/23 at 2100, Until Discontinu ed, Routine [facility] predniSONE 20 mg tablet 12-02 00:00: 12-16 04:59 :00 No [id number] Take 2 tablets by mouth daily for 5 days, THEN 1 tablet daily for 4 days, THEN 0.5 tablets daily for 4 days. [facility] benzonatate 100 mg capsule 12-02 00:00: 00 12-13 04:59 :00 No [id number] 100mg Take 1 capsule by mouth 3 (three) times daily as needed for Cough for up to 10 days. [facility] ALPRAZolam 0.25 mg tablet 12-02 00:00: 00 12-10 04:59 :00 No [id number] 1mg Take 4 tablets by mouth 3 (three) times daily as needed for Other (anxiety) for up to 7 days. [facility] azithromyci n 250 mg tablet 12-02 00:00: 00 12-07 04:59 :00 No [id number] 250mg Take 1 tablet by mouth in the morning for 4 days. [facility] montelukast (SINGULAIR) tablet 10 mg 12-01 16:45: 00 12-04 16:44 :00 No 10mg 10 mg, Oral, Q24H, 3 doses, First dose on Sun12/02/23 at 1145, Last dose on Sun12/04/23 at 1145, Routine [facility] azithromyci n (ZITHROMAX) 500 mg in NaCl 0.9% (NS) 250 mL VIAL-MATE IV piggyback 12-01 16:00: 00 12-02 16:57 :00 No 500mg 500 mg, IV Piggyback, Q24H ABX, 2 doses, First dose on Sun12/02/23 at 1100, Last dose on Sun12/03/23 at 1100, Administer over 60 Minutes, 250 mL, Reason for Anti-Infec tive: Empiric Therapy for Suspected Infection, Empiric Therapy Site: Respirator y, Duration of therapy: 72 hours [facility] budesonide- formoteroL (SYMBICORT) 160-4.5 mcg/actuati on inhaler 2 Puff 12-01 15:45: 00 Yes 2{puff} 2 Puff, Inhalation , BID, First dose on Sun12/02/23 at 1045, Until Discontinu ed, Routine [facility] predniSONE (DELTASONE) tablet 40 mg 12-01 14:00: 00 12-06 13:59 :00 No 40mg 40 mg, Oral, DAILY, 5 doses, First dose on Sun12/02/23 at 0900, Last dose on Sun12/06/23 at 0900, Routine [facility] ipratropium -albuteroL (DUONEB) 0.5 mg-3 mg(2.5 mg base)/3 mL nebulizer solution 3 mL 12-01 13:00: 29 Yes 3mL [facility] ipratropium -albuteroL (DUONEB) 0.5 mg-3 mg(2.5 mg base)/3 mL nebulizer solution 3 mL 12-01 09:00: 00 Yes 3mL 3 mL, Inhalation , Q4H, First dose (after last modificati on) on Sun12/02/23 at 0400, Until Discontinu ed, Routine [facility] methylpredn isolone sod succ (SOLU-MEDRO L) injection 80 mg 12-01 06:50: 00 12-01 07:03 :00 No 80mg 80 mg, Intravenou s, ONCE, 1 dose, On Sun12/02/23 at 0200, 2 mL [facility] benzonatate (TESSALON PERLES) capsule 100 mg 12-01 05:32: 06 Yes 100mg 100 mg, Oral, Q8HPRN, Starting on 12/02/23 at 0032, Until Discontinu ed, NAEEM, Cough [facility] azithromyci n 250 mg tablet 12-01 00:00: 00 12-02 00:00 :00 No [id number] 250mg Take 1 tablet by mouth in the morning. [facility] enoxaparin (LOVENOX) injection 40 mg 11-30 22:00: 00 Yes 40mg 40 mg, Subcutaneo us, DAILY, First dose on 12/01/23 at 1700, Until Discontinu ed, Routine [facility] ipratropium -albuteroL (DUONEB) 0.5 mg-3 mg(2.5 mg base)/3 mL nebulizer solution 3 mL 11-30 21:00: 00 12-01 06:53 :06 No 3mL 3 mL, Inhalation , Q4H, First dose on 12/01/23 at 1600, Until Discontinu ed, Routine [facility] acetaminoph en (TYLENOL) tablet 650 mg 11-30 20:34: 18 Yes 650mg 650 mg, Oral, Q6HPRN, Starting on 12/01/23 at 1534, Until Discontinu ed, Routine, Pain (scale 1-3) [facility] ipratropium -albuteroL (DUONEB) 0.5 mg-3 mg(2.5 mg base)/3 mL nebulizer solution 3 mL 11-30 18:45: 00 11-30 18:23 :00 No 3mL 3 mL, Inhalation , ONCE NOW, 1 dose, On 12/01/23 at 1345, Routine [facility] benzonatate (TESSALON PERLES) capsule 100 mg 11-30 18:00: 00 11-30 18:38 :00 No 100mg 100 mg, Oral, ONCE, 1 dose, On 12/01/23 at 1300, NAEEM [facility] ipratropium -albuteroL (DUONEB) 0.5 mg-3 mg(2.5 mg base)/3 mL nebulizer solution 3 mL 11-30 17:00: 00 11-30 16:28 :00 No 3mL 3 mL, Inhalation , ONCE NOW, 1 dose, On 12/01/23 at 1200, Routine [facility] azithromyci n (ZITHROMAX) tablet 500 mg 11-30 16:15: 00 11-30 16:31 :00 No 500mg 500 mg, Oral, ONCE, 1 dose, On 12/01/23 at 1115, [facility]PREDN ISolone sod succ (SOLU-MEDRO L (PF)) injection 120 mg 11-30 16:15: 00 11-30 16:15 :00 No 120mg 120 mg, Intravenou s, ONCE, 1 dose, On 12/01/23 at 1115, [facility] predniSONE 20 mg tablet 11-30 00:00: 12-02 00:00 :00 No [id number] 40mg PO QD x4d [facility] benzonatate 100 mg capsule 11-30 00:00: 12-02 00:00 :00 No [id number] 100mg Take 1 capsule by mouth 3 (three) times daily as needed for Cough. [facility] ipratropium -albuteroL 0.5 mg-3 mg(2.5 mg base)/3 mL nebulizer solution 11-13 00:00: 00 02-13 00:00 :00 No [id number] 3mL Inhale 3 mL every 4 (four) hours as needed for Wheezing or Shortness of Breath. [facility] predniSONE 20 mg tablet 10-27 00:00: 00 10-31 04:59 :00 No [id number] 40mg Take 2 tablets by mouth in the morning for 3 days. [facility] azithromyci n 500 mg tablet 10-27 00:00: 10-29 04:59 :00 No [id number] 500mg Take 1 tablet by mouth in the morning for 1 day. [facility] cetirizine (ZYRTEC) tablet 10 mg 10-26 14:00: 00 Yes 10mg 10 mg, Oral, DAILY, First dose on Sun10/27/23 at 0900, Until Discontinu ed, [facility] fluticasone propionate 50 mcg/actuati on nasal spray 1 [place] 10-26 13:00: 00 Yes 1{spray } 1 [place], Nasal, BID, First dose on Sun10/27/23 at 0800, Until Discontinu ed, [facility]ine [facility] enoxaparin (LOVENOX) injection 40 mg 10-25 22:00: 00 Yes 40mg 40 mg, Subcutaneo us, DAILY, First dose on Sun10/26/23 at 1700, Until Discontinu ed, Routine [facility] clopidogreL (PLAVIX) 75 mg tablet 75 mg 10-25 14:00: 00 Yes 75mg 75 mg, Oral, DAILY, First dose on Sun10/26/23 at 0900, Until Discontinu ed, Routine [facility] predniSONE (DELTASONE) tablet 40 mg 10-25 14:00: 00 Yes 40mg 40 mg, Oral, DAILY, First dose on Sun10/26/23 at 0900, Until Discontinu ed, Routine [facility] azithromyci n (ZITHROMAX) tablet 500 mg 10-25 14:00: 00 10-28 13:59 :00 No 500mg 500 mg, Oral, DAILY, 3 doses, First dose on Sun10/26/23 at 0900, Last dose on Sun10/28/23 at 0900, NAEEM, Reason for Anti-Infec tive: Empiric Therapy for Suspected Infection, Empiric Therapy Site: Respirator y, Duration of therapy: 72 hours [facility] [place] [facility] Sliding Scale Insulin - Lispro (HumaLOG) 10-25 13:00: 00 Yes Subcutaneo us, TID MEALS+HS, First dose on Sun10/26/23 at 0800, Until Discontinu ed, Routine [facility] ipratropium -albuteroL (DUONEB) 0.5 mg-3 mg(2.5 mg base)/3 mL nebulizer solution 3 mL 10-25 12:47: 08 Yes 3mL 3 mL, Inhalation , Q4HPRN, Starting on Sun10/26/23 at 0747, Until Discontinu ed, Routine, Wheezing [facility] glucagon (GLUCAGEN DIAGNOSTIC KIT) injection 1 mg 10-25 12:45: 18 Yes 1mg 1 mg, Intramuscu lar, PRN, Starting on Sun10/26/23 at 0745, Until Discontinu ed, NAEEM, Blood Glucose < or = 70 mg/dL and patient is NPO, unable to swallow or has mental changes. [facility] dextrose 50 % in water (D50W) injection 25 mL 10-25 12:45: 18 Yes 25mL 25 mL, Slow IV Push, PRN, Starting on Sun10/26/23 at 0745, Until Discontinu ed, NAEEM, Blood Glucose < or = 70 mg/dL and patient is NPO, unable to swallow or has mental status changes. [facility] acetaminoph en (TYLENOL) tablet 650 mg 10-25 05:23: 40 Yes 650mg [facility] guaiFENesin 100 mg/5 mL solution 200 mg 10-25 05:15: 00 Yes 200mg 200 mg, Oral, Q6H, First dose on Sun10/26/23 at 0015, Until Discontinu ed, Routine [facility] ipratropium -albuteroL (DUONEB) 0.5 mg-3 mg(2.5 mg base)/3 mL nebulizer solution 3 mL 10-25 05:15: 00 Yes 3mL 3 mL, Inhalation , QID, First dose on Sun10/26/23 at 0015, Until Discontinu ed, Routine [facility] sodium chloride 7% (HYPER-MARIELA) nebulizer solution 4 mL 10-25 05:15: 00 10-25 20:50 :05 No 4mL 4 mL, Inhalation , TID, First dose on Sun10/26/23 at 0015, Until Discontinu ed, Routine [facility] doxycycline hyclate (Vibramycin ) capsule 200 mg 10-25 02:30: 00 10-25 02:21 :00 No 200mg 200 mg, Oral, ONCE NOW, 1 dose, On Sun10/25/23 at 2130, NAEEM, Reason for Anti-Infec tive: Empiric Therapy for Suspected Infection, Empiric Therapy Site: Respirator y, Duration of therapy: Once (ED) [facility] NaCl 0.9% (NS) bolus infusion 1,000 mL 10-25 02:30: 00 10-25 03:04 :00 No 1000mL at 999 mL/hr, 1,000 mL, IV Piggyback, ONCE, 1 dose, On Sun10/25/23 at 2130, STAT [facility] ipratropium -albuteroL (DUONEB) 0.5 mg-3 mg(2.5 mg base)/3 mL nebulizer solution 6 mL 10-25 00:30: 00 10-24 23:31 :00 No 6mL 6 mL, Inhalation , ONCE NOW, 1 dose, On Sun10/25/23 at 1930, Routine [facility] dextrometho rphan-guaif enesin (ROBITUSSIN DM) 10-100 mg/5 mL solution 10 mL 10-25 00:30: 00 10-24 23:33 :00 No 10mL 10 mL, Oral, ONCE NOW, 1 dose, On Sun10/25/23 at 1930, Routine [facility] terbutaline (BRETHINE) injection 0.25 mg 10-25 00:15: 00 10-24 23:33 :00 No .25mg 0.25 mg, Subcutaneo us, ONCE, 1 dose, On Sun10/25/23 at 1915, Routine [facility] ipratropium -albuteroL (DUONEB) 0.5 mg-3 mg(2.5 mg base)/3 mL nebulizer solution 6 mL 10-24 23:00: 00 10-24 21:56 :00 No 6mL 6 mL, Inhalation , ONCE NOW, 1 dose, On Mary 10/25/23 at 1800, Routine [facility] ipratropium -albuteroL (DUONEB) 0.5 mg-3 mg(2.5 mg base)/3 mL nebulizer solution 6 mL 10-24 22:00: 00 10-24 21:02 :00 No 6mL 6 mL, Inhalation , ONCE NOW, 1 dose, On Mary 10/25/23 at 1700, Routine [facility] montelukast (SINGULAIR) tablet 10 mg 10-24 21:45: 00 10-24 21:05 :00 No 10mg 10 mg, Oral, ONCE NOW, 1 dose, On Mary 10/25/23 at 1645, Routine [facility] magnesium sulfate in water 2 gram/50 mL (4 %) infusion 2 g 10-24 21:45: 00 10-24 21:47 :00 No 2g 2 g, IV Piggyback, Administer over 20 Minutes, ONCE, 1 dose, On Mary 10/25/23 at 1645, NAEEM [facility] dexamethaso ne sod phos PF injection 10 mg 10-24 21:00: 00 10-24 21:15 :00 No 10mg 10 mg, Slow IV Push, ONCE, 1 dose, On Mary 10/25/23 at 1600, 1 mL [facility] pramipexole (MIRAPEX) tablet 0.125 mg 10-14 02:00: 00 Yes .125mg 0.125 mg, Oral, QHS, First dose on Sun10/14/23 at 2100, Until Discontinu ed, Routine [facility] cholecalcif aida, vitamin D3, 25 mcg (1,000 unit) tablet 10-14 00:00: 00 10-23 04:59 :00 No [id number] 1000U Take 1 tablet by mouth in the morning for 8 days. [facility] NON-FORMULA RY MEDICATION 10-13 15:16: 45 Yes OXYGEN [facility] ipratropium -albuteroL (DUONEB) 0.5 mg-3 mg(2.5 mg base)/3 mL nebulizer solution 3 mL 10-13 13:00: 00 Yes 3mL 3 mL, Inhalation , Q4H, First dose (after last modificati on) on 10/14/23 at 0800, Until Discontinu ed, Routine [facility] guaiFENesin 400 mg tablet 10-13 00:00: 00 11-30 00:00 :00 No [id number] 400mg Take 1 tablet by mouth every 4 (four) hours as needed for Cough. [facility] pramipexole 0.125 mg tablet 10-13 00:00: 00 11-13 04:59 :00 No [id number] .125mg Take 1 tablet by mouth at bedtime for 30 days. [facility] predniSONE 20 mg tablet 10-13 00:00: 00 10-26 00:00 :00 No [id number] Take 2 tablets by mouth daily for 4 days, THEN 1 tablet daily for 4 days, THEN 0.5 tablets daily for 4 days. [facility] ascorbic acid, vitamin C, 500 mg tablet 10-13 00:00: 00 10-22 04:59 :00 No [id number] 500mg Take 1 tablet by mouth in the morning and 1 tablet in the evening. Do all this for 8 days. [facility] Zinc Sulfate 50 mg zinc (220 mg) Tab 10-13 00:00: 00 10-22 04:59 :00 No [id number] 50mg Take 50 mg by mouth in the morning for 8 days. [facility] enoxaparin (LOVENOX) injection 40 mg 10-12 22:00: 00 Yes 40mg 40 mg, Subcutaneo us, DAILY, First dose on 10/13/23 at 1700, Until Discontinu ed, Routine [facility] cholecalcif aida (vitamin D3) tablet 1,000 Units 10-12 14:00: 00 Yes 1000U 1,000 Units, Oral, DAILY, First dose on 10/13/23 at 0900, Until Discontinu ed, Routine [facility] dexamethaso ne sod phos PF injection 6 mg 10-12 14:00: 00 Yes 6mg 6 mg, Intravenou s, DAILY, First dose on 10/13/23 at 0900, Until Discontinu ed, 1 mL [facility] ascorbic acid (vitamin C) (VITAMIN C) tablet 500 mg 10-12 13:00: 00 Yes 500mg 500 mg, Oral, BID, First dose on 10/13/23 at 0800, Until Discontinu ed, Routine [facility] ipratropium -albuteroL (DUONEB) 0.5 mg-3 mg(2.5 mg base)/3 mL nebulizer solution 3 mL 10-12 13:00: 00 10-13 11:50 :30 No 3mL 3 mL, Inhalation , QID, First dose on Sun10/13/23 at 0800, Until Discontinu ed, Routine [facility] guaiFENesin (FENESIN IR) tablet 400 mg 10-12 10:44: 14 Yes 400mg 400 mg, Oral, Q4HPRN, Starting on Sun10/13/23 at 0544, Until Discontinu ed, Routine, Cough [facility] ipratropium -albuteroL (DUONEB) 0.5 mg-3 mg(2.5 mg base)/3 mL nebulizer solution 3 mL 10-12 05:00: 00 10-12 04:10 :00 No 3mL 3 mL, Inhalation , ONCE, 1 dose, On Sun10/13/23 at 0000, NAEEM [facility] methylpredn isolone sod succ (SOLU-MEDRO L) injection 125 mg 10-12 04:30: 00 10-12 03:38 :00 No 125mg 125 mg, Intravenou s, ONCE, 1 dose, On 6/14/24 at 2330, 2 mL [facility] ipratropium -albuteroL 0.5 mg-3 mg(2.5 mg base)/3 mL nebulizer solution 09-12 00:00: 00 10-13 00:00 :00 No [id number] 3mL Inhale 3 mL every 4 (four) hours as needed for Wheezing or Shortness of Breath. [facility] ipratropium -albuteroL 0.5 mg-3 mg(2.5 mg base)/3 mL nebulizer solution 09-11 00:00: 00 11-13 00:00 :00 No [id number] 3mL Inhale 3 mL every 4 (four) hours as needed for Wheezing or Shortness of Breath. [facility] ipratropium -albuteroL 0.5 mg-3 mg(2.5 mg base)/3 mL nebulizer solution 24 00:00: 00 09-11 00:00 :00 No [id number] 3mL Inhale 3 mL every 4 (four) hours as needed for Wheezing or Shortness of Breath. [facility] NON-FORMULA RY MEDICATION 07-22 19:38: 27 Yes OXYGEN [facility] HYDROmorpho ne (DILAUDID) injection 0.2 mg 07-22 18:08: 46 07-23 02:43 :33 No .2mg 0.2 mg, Slow IV Push, Q5MIN PRN, 10 doses, Starting on Sun07/23/23 at 1308, Until Sun07/23/23 at 2143, Routine, Pain (scale 7-10), PACU
Us e approved by (Faculty): PACU USE -ANESTHESI A SERVICE-HY DROMORPHON E INJECTIONS [facility] FENTanyl PF (SUBLIMAZE (PF)) injection 25 mcg 07-22 18:08: 46 07-23 02:43 :33 No 25ug 25 mcg, Slow IV Push, Q5MIN PRN, 4 doses, Starting on Sun07/23/23 at 1308, Until Sun07/23/23 at 2143, Routine, Pain (scale 4-6), PACU [facility] ondansetron (ZOFRAN (PF)) injection 4 mg 07-22 18:08: 46 07-23 02:43 :33 No 4mg 4 mg, Slow IV Push, PRN, 1 dose, Starting on Sun07/23/23 at 1308, Until Sun07/23/23 at 2143, Routine, Nausea and Vomiting (N/V), PACU [facility] heparin 10,000 units in NS 1000 mL for vascular 07-22 17:18: 00 07-22 18:35 :38 No PRN, Starting on Sun07/23/23 at 1218, Intra-op [facility] NON-FORMULA RY MEDICATION 07-18 12:59: 53 Yes OXYGEN [facility] HYDROcodone -acetaminop hen 5-325 mg tablet 07-18 00:00: 00 07-26 04:59 :00 No [id number] 1{tbl} Take 1 tablet by mouth every 6 (six) hours as needed for Pain (scale 7-10) for up to 7 days. Indication s: acute pain [facility] methylPREDN ISolone (MEDROL, STEVE,) 4 mg tablets 06-21 00:00: 00 07-18 00:00 :00 No [id number] Take by mouth SEE-INSTRU CTIONS. follow package directions [facility] tiZANidine 4 mg tablet 06-21 00:00: 00 07-18 00:00 :00 No [id number] 4mg Take 1 tablet by mouth every 6 (six) hours as needed for Pain (scale 4-6). [facility] oxyCODONE 5 mg immediate release tablet 06-21 00:00: 00 06-28 05:59 :00 No [id number] 5mg Take 1 tablet by mouth every 6 (six) hours as needed for Pain (scale 4-6) for up to 7 days. Indication s: acute pain [facility] tamsulosin 0.4 mg 24 hr capsule 06-12 00:00: 00 07-18 00:00 :00 No [id number] .4mg TAKE 1 CAPSULE BY MOUTH EVERY MORNING [facility] albuterol-i pratropium (COMBIVENT RESPIMAT) 20-100 mcg/actuati on inhaler 2-13 00:00: 00 07-18 00:00 :00 No [id number] 1{puff} Inhale 1 Puff 4 (four) times daily. [facility] ipratropium -albuteroL 0.5 mg-3 mg(2.5 mg base)/3 mL nebulizer solution 06-11 00:00: 00 08-20 00:00 :00 No 3mL Inhale 3 mL every 4 (four) hours as needed for Wheezing or Shortness of Breath. [facility] clopidogreL 75 mg tablet 06-07 00:00: 00 07-22 00:00 :00 No [id number] 75mg Take 1 tablet by mouth in the morning. [facility] tamsulosin 0.4 mg 24 hr capsule 05-28 00:00: 00 06-12 00:00 :00 No [id number] .4mg Take 1 capsule by mouth in the morning. [facility] aspirin 81 mg EC tablet 05-19 00:00: 00 06-19 05:59 :00 No [id number] 81mg Take 1 tablet by mouth in the morning for 30 days. [facility] collagenase (SANTYL) ointment 05-18 15:00: 00 Yes Topical, DAILY, First dose on Sun05/18/23 at 0900, Until Discontinu ed, Routine [facility] apixaban (ELIQUIS) tablet 5 mg 05-18 14:00: 00 Yes 5mg 5 mg, Oral, BID, First dose on Sun05/18/23 at 0800, Until Discontinu ed, Routine
Indicatio ns: DVT/PE [facility] FENTanyl PF (SUBLIMAZE (PF)) injection 25 mcg 05-18 08:45: 00 05-18 08:07 :00 No 25ug 25 mcg, Slow IV Push, ONCE, 1 dose, On Sun05/18/23 at 0245, Routine [facility] guaiFENesin 100 mg/5 mL solution 05-18 00:00: 00 07-18 00:00 :00 No [id number] 200mg Take 10 mL by mouth every 6 (six) hours as needed for Cough. [facility] sodium bicarbonate 650 mg tablet 05-18 00:00: 00 06-09 05:59 :00 No [id number] 650mg Take 1 tablet by mouth in the morning and 1 tablet in the evening. Take with meals. Do all this for 21 days. [facility] apixaban 5 mg tablet 05-18 00:00: 00 06-07 00:00 :00 No [id number] 5mg Take 1 tablet by mouth in the morning and 1 tablet in the evening. Do all this for 30 days. Indication s: history of deep vein thrombosis [facility] polyethylen e glycol 3350 17 gram powder 05-18 00:00: 00 05-26 05:59 :00 No [id number] 17g Take 1 Packet by mouth once daily as needed for Constipati on for up to 7 days. [facility] metroNIDAZO LE 500 mg tablet 05-18 00:00: 00 05-24 05:59 :00 No [id number] 500mg Take 1 tablet by mouth every 12 (twelve) hours for 5 days. [facility] levoFLOXaci n 500 mg tablet 05-18 00:00: 00 05-22 05:59 :00 No [id number] 500mg Take 1 tablet by mouth every 24 (twenty-fo ur) hours for 3 days. [facility] ketorolac (TORADOL) injection 15 mg 05-17 00:00: 00 05-21 23:59 :00 No 15mg 15 mg, Slow IV Push, Q6H, 20 doses, First dose on Sun05/16/23 at 1800, Last dose on Sun05/21/23 at 1200, Routine [facility] lactated ringers IV infusion 1,000 mL 05-16 18:15: 00 Yes 1000mL at 75 mL/hr, 1,000 mL, IV Infusion, CONTINUOUS , Starting on Sun05/16/23 at 1215, Until Discontinu ed, Routine, PACU [facility] HYDROmorphO ne (DILAUDID) injection 0.2 mg 05-16 18:11: 00 05-16 19:58 :55 No .2mg 0.2 mg, Slow IV Push, Q5MIN PRN, 10 doses, Starting on Sun05/16/23 at 1211, Until Sun05/16/23 at 1358, Routine, Pain (scale 7-10), PACU
Us e approved by (Faculty): PACU USE -ANESTHESI A SERVICE-HY DROMORPHON E INJECTIONS [facility] FENTanyl PF (SUBLIMAZE (PF)) injection 25 mcg 05-16 18:11: 00 05-16 19:58 :55 No 25ug 25 mcg, Slow IV Push, Q5MIN PRN, 4 doses, Starting on Sun05/16/23 at 1211, Until Sun05/16/23 at 1358, Routine, Pain (scale 4-6), PACU [facility] traMADoL (ULTRAM) tablet 50 mg 05-16 18:06: 26 Yes 50mg 50 mg, Oral, Q6HPRN, Starting on Sun05/16/23 at 1206, Until Discontinu ed, Routine, Pain (scale 4-6), Pain (scale 7-10) [facility] sodium chloride 0.9 % irrigation solution 05-16 15:55: 00 Yes PRN, Starting on Sun05/16/23 at 0955, Until Discontinu ed, Intra-op [facility] bupivacaine (preserv free) (SENSORCAIN E MPF) 0.25 % (2.5 mg/mL) injection 05-16 15:45: 00 Yes PRN, Starting on Sun05/16/23 at 0945, Until Discontinu ed, Routine, Intra-op [facility] levoFLOXaci n in D5W (LEVAQUIN) 750 mg/150 mL Piggyback 750 mg 05-16 15:30: 00 05-17 18:42 :00 No 750mg 750 mg, IV Piggyback, at 100 mL/hr Administer over 90 Minutes, Q24H ABX, 2 doses, First dose (after last modificati on) on Sun05/16/23 at 0930, Last dose on Sun05/17/23 at 0930, Routine
Reason for Anti-Infec tive: Empiric Therapy for Suspected Infection< br>Empiric Therapy Site: Respirator y
Durat ion of therapy: 5 days [facility] sodium chloride 7% (HYPER-MARIELA) nebulizer solution 4 mL 05-16 15:00: 00 Yes 4mL 4 mL, Inhalation , DAILY, First dose on Sun05/16/23 at 0900, Until Discontinu ed, Routine [facility] sodium bicarbonate (ANTACID (SODIUM BICARBONATE )) tablet 650 mg 05-16 14:00: 00 Yes 650mg 650 mg, Oral, QID, First dose on Sun05/16/23 at 0800, Until Discontinu ed, Routine [facility] NaCl 0.9% (NS) IV infusion 1,000 mL 05-16 06:00: 00 05-16 18:08 :12 No 1000mL at 125 mL/hr, IV Infusion, CONTINUOUS , Starting on Sun05/16/23 at 0000, Until Sun05/16/23 at 1208, Routine
Start when patient is NPO
[facility] polyethylen e glycol 3350 powder 17 g 05-15 20:15: 00 Yes 17g 17 g, Oral, DAILY, First dose on Sun05/15/23 at 1415, Until Discontinu ed, Routine [facility] alum-mag hydroxide-s imeth (MAG-AL PLUS) 200-200-20 mg/5 mL suspension 30 mL 05-14 06:29: 42 Yes 30mL 30 mL, Oral, Q6HPRN, Starting on Sun05/14/23 at 0029, Until Discontinu ed, Routine, Indigestio n [facility] ketorolac (TORADOL) injection 30 mg 05-14 01:15: 00 05-14 00:23 :00 No 30mg 30 mg, Slow IV Push, ONCE, 1 dose, On Sun05/13/23 at 1915, Routine [facility] traMADoL (ULTRAM) tablet 50 mg 05-14 00:17: 44 05-16 00:16 :44 No 50mg 50 mg, Oral, Q8HPRN, Starting on Sun05/13/23 at 1817, Until Sun05/15/23 at 1816, Routine, Pain (scale 4-6) [facility] ketorolac (TORADOL) injection 15 mg 05-13 11:15: 00 05-13 10:29 :00 No 15mg 15 mg, Slow IV Push, ONCE, 1 dose, On Sun05/13/23 at 0515, NAEEM [facility] ketorolac (TORADOL) injection 15 mg 05-13 07:00: 00 05-13 06:30 :00 No 15mg 15 mg, Slow IV Push, ONCE, 1 dose, On Sun05/13/23 at 0100, Routine [facility] metroNIDAZO LE (FLAGYL) tablet 500 mg 05-13 02:15: 00 05-23 01:59 :00 No 500mg 500 mg, Oral, Q12H, 20 doses, First dose on Sun05/12/23 at 2015, Last dose on Sun05/22/23 at 0800, Routine
Reason for Anti-Infec tive: Documented Infection< br>Documen sarah Infection Site: Abdominal< br>Duratio n of Therapy: 10 days [facility] levoFLOXaci n in D5W (LEVAQUIN) 750 mg/150 mL Piggyback 750 mg - 15:30: 00 05-16 13:34 :20 No 750mg 750 mg, IV Piggyback, at 100 mL/hr Administer over 90 Minutes, Q24H ABX, 5 doses, First dose on Sun05/12/23 at 0930, Last dose on Sun05/16/23 at 0930, Routine
Reason for Anti-Infec tive: Empiric Therapy for Suspected Infection< br>Empiric Therapy Site: Respirator y
Durat ion of therapy: 5 days [facility] tamsulosin (FLOMAX) capsule 0.4 mg 05-12 15:00: 00 Yes .4mg 0.4 mg, Oral, DAILY, First dose on Sun05/12/23 at 0900, Until Discontinu ed, Routine [facility] aspirin EC tablet 81 mg 05-12 15:00: 00 Yes 81mg 81 mg, Oral, DAILY, First dose on Sun05/12/23 at 0900, Until Discontinu ed, Routine [facility] enoxaparin (LOVENOX) injection 40 mg 05-12 15:00: 00 Yes 40mg 40 mg, Subcutaneo us, DAILY, First dose on Sun05/12/23 at 0900, Until Discontinu ed, Routine [facility] methylPREDN ISolone sod succ (SOLU-MEDRO L (PF)) injection 40 mg 05-12 15:00: 00 05-15 14:37 :00 No 40mg 40 mg, Intravenou s, DAILY, 4 doses, First dose on Sun05/12/23 at 0900, Last dose on Sun05/15/23 at 0900, 1 mL [facility] ipratropium -albuteroL (DUONEB) 0.5 mg-3 mg(2.5 mg base)/3 mL nebulizer solution 3 mL 05-12 02:00: 00 Yes 3mL 3 mL, Inhalation , Q4H, First dose on Sun05/11/23 at 2000, Until Discontinu ed, Routine [facility] nicotine (NICODERM) 21 mg/24 hr patch 1 Patch 05-12 00:15: 00 Yes 1{patch } 1 Patch, Topical, Administer over 24 Hours, Q24H, First dose on Sun05/11/23 at 1815, Until Discontinu ed, Routine [facility] ipratropium -albuteroL (DUONEB) 0.5 mg-3 mg(2.5 mg base)/3 mL nebulizer solution 3 mL 05-11 23:30: 00 05-11 22:44 :00 No 3mL 3 mL, Inhalation , ONCE, 1 dose, On Sun05/11/23 at 1730, Routine [facility] NaCl 0.9% (NS) IV infusion 1,000 mL 05-11 23:15: 00 05-15 16:19 :42 No 1000mL at 125 mL/hr, IV Infusion, CONTINUOUS , Starting on Sun05/11/23 at 1715, Until Sun05/15/23 at 1019, Routine [facility] guaiFENesin 100 mg/5 mL solution 200 mg 05-11 23:11: 35 Yes 200mg 200 mg, Oral, Q6HPRN, Starting on Sun05/11/23 at 1711, Until Discontinu ed, Routine, Cough [facility] ondansetron (ZOFRAN (PF)) injection 4 mg 05-11 23:07: 32 Yes 4mg 4 mg, Slow IV Push, Q6HPRN, Starting on Sun05/11/23 at 1707, Until Discontinu ed, Routine, Nausea and Vomiting (N/V) [facility] acetaminoph en (TYLENOL) tablet 650 mg 05-11 23:07: 17 Yes 650mg 650 mg, Oral, Q6HPRN, Starting on Sun05/11/23 at 1707, Until Discontinu ed, Routine, Pain (scale 1-3), Temp > 38 C [facility] ipratropium -albuteroL (DUONEB) 0.5 mg-3 mg(2.5 mg base)/3 mL nebulizer solution 6 mL 05-11 16:00: 00 05-11 15:29 :00 No 6mL 6 mL, Inhalation , ONCE NOW, 1 dose, On Sun05/11/23 at 1000, Routine [facility] piperacilli n-tazobacta m (ZOSYN) 3.375 g in NaCl 0.9% (NS) 100 mL MINI-BAG 05-11 14:30: 00 05-11 15:37 :00 No 3.375g 3.375 g, IV Piggyback, ONCE, 1 dose, On Sun05/11/23 at 0830, Administer over 30 Minutes, 100 mL
Reas on for Anti-Infec tive: Documented Infection< br>Documen sarah Infection Site: Abdominal< br>Duratio n of Therapy: Other (see Comments) [facility] iopamidol (ISOVUE 370-500 mL) injection 100 mL 05-11 13:30: 00 05-11 13:30 :00 No [id number] 100mL 100 mL, Intravenou s, ONCE, 1 dose, On Sun05/11/23 at 0730, Routine [facility] ketorolac (TORADOL) injection 30 mg 05-11 13:15: 00 05-11 12:07 :00 No 30mg 30 mg, Slow IV Push, ONCE, 1 dose, On Sun05/11/23 at 0715, Routine [facility] methylpredn isolone sod succ (SOLU-MEDRO L) injection 125 mg 05-11 12:00: 00 05-11 10:35 :29 No 125mg 125 mg, Intravenou s, Q6H, First dose on Sun05/11/23 at 0600, Until Discontinu ed, Routine [facility] ipratropium -albuteroL (DUONEB) 0.5 mg-3 mg(2.5 mg base)/3 mL nebulizer solution 3 mL 05-11 10:45: 00 05-11 10:19 :00 No 3mL 3 mL, Inhalation , ONCE NOW, 1 dose, On Sun05/11/23 at 0445, Routine [facility] magnesium sulfate in water 2 gram/50 mL (4 %) infusion 2 g 05-11 10:45: 00 05-11 11:20 :00 No 2g 2 g, IV Piggyback, Administer over 60 Minutes, ONCE, 1 dose, On Sun05/11/23 at 0445, Routine [facility] ondansetron (ZOFRAN (PF)) injection 4 mg 05-11 10:15: 00 05-11 10:16 :00 No 4mg 4 mg, Slow IV Push, ONCE, 1 dose, On Sun05/11/23 at 0415, NAEEM [facility] morpHINE (4 mg/mL) injection 4 mg 05-11 10:15: 00 05-11 10:16 :00 No 4mg 4 mg, Slow IV Push, ONCE, 1 dose, On Sun05/11/23 at 0415, STAT [facility] ipratropium -albuteroL (DUONEB) 0.5 mg-3 mg(2.5 mg base)/3 mL nebulizer solution 3 mL 05-10 09:00: 00 05-10 07:58 :00 No 3mL 3 mL, Inhalation , ONCE, 1 dose, On Sun05/10/23 at 0300, NAEEM [facility] magnesium sulfate in D5W 1 gram/100 mL RTU IV Piggyback 1 g 05-10 08:00: 00 05-10 07:58 :00 No 1g 1 g, IV Piggyback, ONCE, 1 dose, On Sun05/10/23 at 0200, Administer over 60 Minutes, 100 mL [facility] ipratropium -albuteroL (DUONEB) 0.5 mg-3 mg(2.5 mg base)/3 mL nebulizer solution 3 mL 05-10 07:45: 00 05-10 06:46 :00 No 3mL 3 mL, Inhalation , ONCE, 1 dose, On Sun05/10/23 at 0145, [facility] phos PF [facility] 8 mg 05-10 07:00: 00 05-10 06:53 :00 No 8mg 8 mg, Slow IV Push, ONCE, 1 dose, On Amry 1/11/24 at 0100, 1 mL [facility] predniSONE 20 mg tablet 05-10 00:00: 00 05-18 00:00 :00 No [id number] 60mg Take 3 tablets by mouth every morning for 5 days. [facility] apixaban 5 mg tablet 05-07 00:00: 00 05-16 00:00 :00 No [id number] 5mg Take 1 tablet by mouth in the morning and 1 tablet in the evening. Indication s: history of deep vein thrombosis [facility] collagenase 250 unit/gram ointment 05-03 00:00: 00 06-03 05:59 :00 No [id number] Apply to affected area(s) daily for 30 days. [facility] predniSONE 10 mg tablet 05-03 00:00: 00 05-10 00:00 :00 No [id number] Take 6 tablets by mouth daily for 5 days, THEN 3 tablets daily for 5 days, THEN 1 tablet daily for 5 days, THEN 0.5 tablets daily for 5 days. [facility] warfarin (COUMADIN) tablet 2.5 mg 05-02 23:00: 00 Yes 2.5mg 2.5 mg, Oral, DAILY AT 1700, First dose on Sun05/02/23 at 1700, Until Discontinu ed, Routine
INR Goal Range: 2-3
IND ICATION (More than one indication for warfarin can be selected): Other (please enter in the Comments section) [facility] collagenase (SANTYL) ointment 05-02 19:15: 00 Yes Topical (Apply To Affected Areas), DAILY, First dose on Sun05/02/23 at 1315, Until Discontinu ed, Routine [facility] ampicillin- sulbactam (UNASYN) 3 g in NaCl 0.9% (NS) 100 mL MINI-BAG 05-02 18:00: 00 05-07 17:59 :00 No 3g 3 g, IV Piggyback, Q6H ABX, 20 doses, First dose on Sun05/02/23 at 1200, Last dose on Sun05/07/23 at 0600, Administer over 30 Minutes, 100 mL
Reas on for Anti-Infec tive: Empiric Therapy for Suspected Infection< br>Empiric Therapy Site: Respirator y
Durat ion of therapy: 72 hours [facility] ipratropium -albuteroL (DUONEB) 0.5 mg-3 mg(2.5 mg base)/3 mL nebulizer solution 3 mL 05-02 18:00: 00 05-03 13:59 :00 No 3mL 3 mL, Inhalation , QID, 3 doses, First dose (after last reorder) on Sun05/02/23 at 1200, Last dose on Sun05/02/23 at 2000, Routine [facility] albuterol-i pratropium (COMBIVENT RESPIMAT) 20-100 mcg/actuati on inhaler 05-02 17:25: 36 05-02 00:00 :00 No 1{puff} Inhale 1 Puff 4 (four) times daily. [facility] predniSONE (DELTASONE) tablet 60 mg 05-02 17:00: 00 Yes 60mg 60 mg, Oral, DAILY, First dose on Sun05/02/23 at 1100, Until Discontinu ed, Routine [facility] tamsulosin (FLOMAX) capsule 0.4 mg 05-02 15:00: 00 Yes .4mg 0.4 mg, Oral, DAILY, First dose on Sun05/02/23 at 0900, Until Discontinu ed, Routine [facility] docusate (COLACE) capsule 100 mg 05-02 15:00: 00 Yes 100mg 100 mg, Oral, DAILY, First dose on Sun05/02/23 at 0900, Until Discontinu ed, Routine [facility] aspirin tablet 325 mg 05-02 15:00: 00 Yes 325mg 325 mg, Oral, DAILY, First dose on Sun05/02/23 at 0900, Until Discontinu ed, Routine [facility] enoxaparin (LOVENOX) injection 40 mg 05-02 15:00: 00 05-02 21:35 :41 No 40mg 40 mg, Subcutaneo us, DAILY, First dose on Sun05/02/23 at 0900, Until Discontinu ed, Routine [facility] tamsulosin 0.4 mg 24 hr capsule 05-02 12:38: 34 05-02 00:00 :00 No .4mg Take 1 capsule by mouth in the morning. [facility] piperacilli n-tazobacta m (ZOSYN) 3.375 g in NaCl 0.9% (NS) 100 mL MINI-BAG 05-02 12:30: 00 05-02 16:46 :02 No 3.375g 3.375 g, IV Piggyback, Q8H ABX, 6 doses, First dose on Sun05/02/23 at 0630, Last dose on Sun05/03/23 at 2230, Administer over 4 Hours, 100 mL
Reas on for Anti-Infec tive: Documented Infection< br>Documen sarah Infection Site: Respirator y
Durat ion of Therapy: 7 days [facility] nicotine (NICODERM) 14 mg/24 hr patch 1 Patch 05-02 11:00: 00 Yes 1{patch } 1 Patch, Topical, Administer over 24 Hours, Q24H, First dose on Sun05/02/23 at 0500, Until Discontinu ed, Routine [facility] benzonatate (TESSALON PERLES) capsule 200 mg 05-02 04:29: 35 Yes 200mg 200 mg, Oral, Q8HPRN, Starting on Sun05/01/23 at 2229, Until Discontinu ed, Routine, Cough [facility] methylpredn isolone sod succ (SOLU-MEDRO L) injection 80 mg 05-02 04:00: 00 05-02 16:45 :09 No 80mg 80 mg, Intravenou s, Q8H, First dose (after last reorder) on Sun05/01/23 at 2200, Until Discontinu ed, 2 mL [facility] ipratropium -albuteroL (DUONEB) 0.5 mg-3 mg(2.5 mg base)/3 mL nebulizer solution 3 mL 05-02 03:54: 37 Yes 3mL 3 mL, Inhalation , Q6HPRN, Starting on Sun05/01/23 at 2153, Until Discontinu ed, Routine, Wheezing [facility] ondansetron (ZOFRAN (PF)) injection 4 mg 05-02 03:54: 26 Yes 4mg 4 mg, Slow IV Push, Q6HPRN, Starting on Sun05/01/23 at 2153, Until Discontinu ed, Routine, Nausea and Vomiting (N/V) [facility] FENTanyl PF (SUBLIMAZE (PF)) injection 12.5 mcg 05-02 03:54: 19 05-03 03:53 :19 No 12.5ug 12.5 mcg, Slow IV Push, Q6HPRN, Starting on Sun05/01/23 at 2153, Until Sun05/02/23 at 2152, Routine, Pain (scale 7-10) [facility] acetaminoph en (TYLENOL) tablet 650 mg 05-02 03:54: 03 Yes 650mg 650 mg, Oral, Q6HPRN, Starting on Sun05/01/23 at 2153, Until Discontinu ed, Routine, Pain (scale 1-3) [facility] vancomycin (VANCOCIN) 1,000 mg in NaCl 0.9% (NS) 250 mL VIAL-MATE IV piggyback 05-02 01:15: 00 05-02 04:02 :00 No 1000mg 1,000 mg, IV Piggyback, ONCE, 1 dose, On Sun05/01/23 at 1915, Administer over 60 Minutes, 250 mL
Reas on for Anti-Infec tive: Documented Infection< br>Documen sarah Infection Site: Respirator y
Durat ion of Therapy: 7 days [facility] iopamidol (ISOVUE 370-500 mL) injection 100 mL 05-02 00:45: 00 05-02 00:45 :00 No [id number] 100mL 100 mL, Intravenou s, ONCE, 1 dose, On Sun05/01/23 at 1845, Routine [facility] NaCl 0.9% (NS) bolus infusion 1,000 mL 05-02 00:30: 00 05-03 00:55 :00 No 1000mL at 999 mL/hr, 1,000 mL, IV Infusion, ONCE, 1 dose, On Sun05/01/23 at 1830, STAT [facility] piperacilli n-tazobacta m (ZOSYN) 3.375 g in NaCl 0.9% (NS) 100 mL MINI-BAG 05-02 00:30: 00 05-02 01:38 :00 No 3.375g 3.375 g, IV Piggyback, ONCE, 1 dose, On Sun05/01/23 at 1830, Administer over 30 Minutes, 100 mL
Reas on for Anti-Infec tive: Documented Infection< br>Documen sarah Infection Site: Respirator y
Durat ion of Therapy: 7 days [facility] levoFLOXaci n in D5W (LEVAQUIN) 750 mg/150 mL Piggyback 750 mg 05-02 00:15: 00 05-02 01:49 :00 No 750mg 750 mg, IV Piggyback, ONCE, 1 dose, On Sun05/01/23 at 1815, Administer over 90 Minutes, 150 mL
Reas on for Anti-Infec tive: Empiric Therapy for Suspected Infection< br>Empiric Therapy Site: Respirator y
Durat ion of therapy: Once (ED) [facility] ipratropium -albuteroL (DUONEB) 0.5 mg-3 mg(2.5 mg base)/3 mL nebulizer solution 3 mL 05-02 00:15: 00 05-01 23:55 :00 No 3mL 3 mL, Inhalation , Q10M, 3 doses, First dose on Sun05/01/23 at 1815, Last dose on Sun05/01/23 at 1835, Routine [facility] budesonide- formoteroL 160-4.5 mcg/actuati on inhaler 05-02 00:00: 07-18 00:00 :00 No [id number] 2{puff} Inhale 2 Puffs in the morning and 2 Puffs in the evening. [facility] benzonatate 100 mg capsule 05-02 00:00: 00 06-02 05:59 :00 No [id number] 200mg Take 2 capsules by mouth every 8 (eight) hours as needed for Cough for up to 30 days. [facility] albuterol-i pratropium (COMBIVENT RESPIMAT) 20-100 mcg/actuati on inhaler 05-02 00:00: 00 06-02 05:59 :00 No [id number] 1{puff} Inhale 1 Puff 4 (four) times daily for 30 days. [facility] tamsulosin 0.4 mg 24 hr capsule 05-02 00:00: 00 05-28 00:00 :00 No [id number] .4mg Take 1 capsule by mouth in the morning for 30 days. [facility] warfarin 2.5 mg tablet 05-02 00:00: 00 05-16 00:00 :00 No [id number] 2.5mg Take 1 tablet by mouth every evening for 30 days. [facility] levoFLOXaci n 500 mg tablet 05-02 00:00: 00 05-08 05:59 :00 No [id number] 500mg Take 1 tablet by mouth every 24 (twenty-fo ur) hours for 5 days. [facility] methylpredn isolone sod succ (SOLU-MEDRO L) injection 125 mg 05-02 00:00: 00 05-01 23:31 :00 No 125mg 125 mg, Intravenou s, ONCE, 1 dose, On Sun05/01/23 at 1800, 2 mL [facility] NaCl 0.9% (NS) bolus infusion 1,000 mL 05-01 23:15: 00 05-03 01:00 :00 No 1000mL at 999 mL/hr, 1,000 mL, IV Infusion, ONCE, 1 dose, On Sun05/01/23 at 1715, STAT [facility] predniSONE 20 mg tablet 2022-04 00:00: 00 04-28 05:59 :00 No [id number] 20mg Take 1 tablet by mouth in the morning for 3 days. [facility] albuterol-i pratropium (COMBIVENT RESPIMAT) 20-100 mcg/actuati on inhaler 2022-04 18:01: 23 Yes 1{puff} Inhale 1 Puff 4 (four) times daily. [facility] tamsulosin 0.4 mg 24 hr capsule 2022-04 18:01: 23 Yes .4mg Take 1 capsule by mouth in the morning. [facility] budesonide- formoteroL 160-4.5 mcg/actuati on inhaler 2022-04 00:00: 00 05-02 00:00 :00 No [id number] 2{puff} Inhale 2 Puffs in the morning and 2 Puffs in the evening. [facility] doxycycline hyclate 100 mg capsule 2022-04 00:00: 00 05-02 00:00 :00 No [id number] 100mg Take 1 capsule by mouth every 12 (twelve) hours for 8 days. [facility] warfarin 2.5 mg tablet 2022-04 00:00: 00 05-02 00:00 :00 No [id number] 2.5mg Take 1 tablet by mouth every evening. [facility] ALPRAZolam 0.25 mg tablet 2022-04 00:00: 00 04-27 05:59 :00 No [id number] .25mg Take 1 tablet by mouth 3 (three) times daily as needed (anxiety) for up to 3 days. [facility] warfarin (COUMADIN) tablet 2.5 mg 2022-04 23:00: 00 Yes 2.5mg 2.5 mg, Oral, DAILY AT 1700, First dose on 04/22/23 at 1700, Until Discontinu ed, Routine
INR Goal Range: 2-3
IND ICATION (More than one indication for warfarin can be selected): Peripheral arterial disease [facility] benzonatate (TESSALON PERLES) capsule 100 mg 2022-04 20:00: 00 Yes 100mg 100 mg, Oral, Q8H, First dose on 04/22/23 at 1400, Until Discontinu ed, Routine [facility] ALPRAZolam (XANAX) tablet 0.25 mg 2022-04 20:00: 00 Yes .25mg 0.25 mg, Oral, TID, First dose on 04/22/23 at 1400, Until Discontinu ed, Routine [facility] KCL (KLOR-CON M20) tablet 20 mEq 2022-04 15:00: 00 Yes 20meq 20 mEq, Oral, DAILY, First dose on 04/22/23 at 0900, Until Discontinu ed, Routine [facility] predniSONE (DELTASONE) tablet 40 mg 2022-04 15:00: 00 Yes 40mg 40 mg, Oral, DAILY, First dose on 04/22/23 at 0900, Until Discontinu ed, Routine [facility] warfarin (COUMADIN) tablet 1 mg 2022-04 23:00: 00 04-21 23:00 :00 No 1mg 1 mg, Oral, ONCE AT 1700, 1 dose, On 04/21/23 at 1700, Routine
INR Goal Range: 2-3
IND ICATION (More than one indication for warfarin can be selected): Peripheral arterial disease [facility] methylPREDN ISolone sod succ (SOLU-MEDRO L (PF)) injection 40 mg 2022-04 02:00: 00 04-22 01:28 :05 No 40mg 40 mg, Intravenou s, Q12H, First dose (after last modificati on) on Sun04/20/23 at 2000, Until Discontinu ed, 1 mL [facility] doxycycline hyclate (Vibramycin ) capsule 100 mg 2022-04 00:00: 00 04-26 11:59 :00 No 100mg 100 mg, Oral, Q12HA2, 11 doses, First dose on Sun04/20/23 at 1800, Last dose on Sun04/25/23 at 1800, Routine
Reason for Anti-Infec tive: Documented Infection< br>Documen sarah Infection Site: Respirator y
Durat ion of Therapy: 7 days [facility] cefTRIAXone (ROCEPHIN) 1,000 mg in NaCl 0.9% (NS) 100 mL MINI-BAG 2022-04 12:00: 00 04-22 12:30 :00 No 1000mg 1,000 mg, IV Piggyback, Q24H ABX, 3 doses, First dose (after last reorder) on Sun04/20/23 at 0600, Last dose on Sun04/22/23 at 0600, Administer over 30 Minutes, 100 mL
Reas on for Anti-Infec tive: Documented Infection< br>Documen sarah Infection Site: Respirator y
Durat ion of Therapy: Other (see Comments) [facility] calcium carbonate (OSCAL-500) tablet 500 mg 2022-04 05:40: 02 Yes 500mg 500 mg, Oral, [id number], 4 doses, Starting on Sun04/19/23 at 2340, Until Discontinu ed, Routine, Indigestio n [facility] budesonide- formoteroL (SYMBICORT) 160-4.5 mcg/actuati on inhaler 2 Puff 2022-04 02:00: 00 Yes 2{puff} 2 Puff, Inhalation , BID, First dose on Sun04/19/23 at 2000, Until Discontinu ed, Routine [facility] warfarin (COUMADIN) tablet 2.5 mg 2022-04 23:00: 00 04-21 19:50 :22 No 2.5mg 2.5 mg, Oral, DAILY AT 1700, First dose (after last modificati on) on Sun04/19/23 at 1700, Until Discontinu ed, Routine
INR Goal Range: 2-3
IND ICATION (More than one indication for warfarin can be selected): Peripheral arterial disease [facility] methylPREDN ISolone sod succ (SOLU-MEDRO L (PF)) injection 40 mg 2022-04 20:00: 00 04-20 15:05 :53 No 40mg 40 mg, Intravenou s, Q8H, First dose (after last modificati on) on Sun04/19/23 at 1400, Until Discontinu ed, 1 mL [facility] ipratropium -albuteroL (DUONEB) 0.5 mg-3 mg(2.5 mg base)/3 mL nebulizer solution 3 mL 2022-04 18:00: 00 Yes 3mL 3 mL, Inhalation , Q4H, First dose on Sun04/19/23 at 1200, Until Discontinu ed, Routine [facility] doxycycline (VIBRAMYCIN ) 100 mg in NaCl 0.9% (NS) 100 mL MINI-BAG 2022-04 15:00: 00 04-20 17:13 :58 No 100mg 100 mg, IV Piggyback, Q12H ABX, 12 doses, First dose on Sun04/19/23 at 0900, Last dose on Sun04/24/23 at 2100, Administer over 60 Minutes, 100 mL
Reas on for Anti-Infec tive: Documented Infection< br>Documen sarah Infection Site: Respirator y
Durat ion of Therapy: 7 days [facility] nicotine (NICODERM) 14 mg/24 hr patch 1 Patch 2022-04 12:30: 00 Yes 1{patch } 1 Patch, Topical, Administer over 24 Hours, Q24H, First dose on Sun04/19/23 at 0630, Until Discontinu ed, Routine [facility] albuterol (PROVENTIL) 2.5 mg /3 mL (0.083 %) nebulizer solution 5 mg 2022-04 12:30: 00 04-19 12:27 :00 No 5mg 5 mg, Inhalation , ONCE, 1 dose, On Sun04/19/23 at 0630, NAEEM [facility] methylPREDN ISolone sod succ (SOLU-MEDRO L (PF)) injection 40 mg 2022-04 12:00: 00 04-19 15:16 :28 No 40mg 40 mg, Intravenou s, Q6H, First dose on Sun04/19/23 at 0600, Until Discontinu ed, 1 mL [facility] ipratropium -albuteroL (DUONEB) 0.5 mg-3 mg(2.5 mg base)/3 mL nebulizer solution 3 mL 2022-04 11:14: 23 Yes 3mL 3 mL, Inhalation , Q6HPRN, Starting on Sun04/19/23 at 0514, Until Discontinu ed, Routine, Wheezing [facility] acetaminoph en (TYLENOL) tablet 650 mg 2022-04 11:13: 49 Yes 650mg 650 mg, Oral, Q6HPRN, Starting on Sun04/19/23 at 0513, Until Discontinu ed, Routine, Pain (scale 1-3) [facility] cefTRIAXone (ROCEPHIN) 1,000 mg in NaCl 0.9% (NS) 100 mL MINI-BAG 2022-04 10:45: 00 04-19 11:30 :00 No 1000mg 1,000 mg, IV Piggyback, ONCE, 1 dose, On Sun04/19/23 at 0445, Administer over 30 Minutes, 100 mL
Reas on for Anti-Infec tive: Documented Infection< br>Documen sarah Infection Site: Respirator y
Durat ion of Therapy: Other (see Comments) [facility] magnesium sulfate in water 2 gram/50 mL (4 %) infusion 2 g 2022-04 10:30: 00 04-19 10:07 :00 No 2g 2 g, IV Piggyback, Administer over 60 Minutes, ONCE, 1 dose, On Sun04/19/23 at 0430, Routine [facility] albuterol (PROVENTIL) 2.5 mg /3 mL (0.083 %) nebulizer solution 7.5 mg 2022-04 10:30: 00 04-19 09:36 :00 No 7.5mg 7.5 mg, Inhalation , ONCE, 1 dose, On Mary 04/19/23 at 0430, [facility] ipratropium (ATROVENT) 0.02 % nebulizer solution 0.5 mg 2022-04 10:30: 00 04-19 09:36 :00 No .5mg 0.5 mg, Inhalation , ONCE, 1 dose, On Mary 04/19/23 at 0430, [facility] methylpredn isolone sod succ (SOLU-MEDRO L) injection 125 mg 2022-04 10:30: 00 04-19 09:37 :00 No 125mg 125 mg, Slow IV Push, ONCE NOW, 1 dose, On Mary 04/19/23 at 0430, [facility] albuterol (VENTOLIN) inhaler 2 Puff 2022-04 03:14: 11 Yes 2{puff} 2 Puff, Inhalation , Q4HPRN, Starting on Sun04/16/23 at 2114, Until Discontinu ed, Routine, Wheezing, Shortness of Breath [facility] nicotine 14 mg/24 hr patch 2022-04 00:00: 00 07-18 00:00 :00 No [id number] 1{patch } Apply 1 Patch to area(s) every 24 (twenty-fo ur) hours. [facility] warfarin 5 mg tablet 2022-04 00:00: 00 04-23 00:00 :00 No [id number] 2.5mg Take 0.5 tablets by mouth every evening. [facility] warfarin 5 mg tablet 2022-04 00:00: 00 04-23 00:00 :00 No [id number] 5mg Take 1 tablet by mouth the evening of 04/17. [facility] azithromyci n (ZITHROMAX Z-STEVE) 250 mg tablet 2023-1 2-19 00:00: 00 04-17 00:00 :00 No [id number] 250mg Take 1 tablet by mouth in the morning. [facility] tiotropium 18 mcg inhalation 2022-04 00:00: 00 04-17 00:00 :00 No [id number] 18ug Inhale 1 capsule in the morning for 90 days. [facility] budesonide- formoteroL (SYMBICORT) 160-4.5 mcg/actuati on inhaler 2 Puff 2022-04 14:15: 00 Yes 2{puff} 2 Puff, Inhalation , BID, First dose on Sun04/16/23 at 0815, Until Discontinu ed, Routine [facility] KCL (KLOR-CON M20) tablet 40 mEq 2022-04 14:00: 00 04-16 14:20 :00 No 40meq 40 mEq, Oral, ONCE, 1 dose, On Sun04/16/23 at 0800, Routine [facility] enoxaparin (LOVENOX) injection 60 mg 2022-04 02:00: 00 04-16 21:26 :19 No 1mg/kg 60 mg (rounded from 62.6 mg = 1 mg/kg ?62.6 kg), Subcutaneo us, Q12H, First dose on Sun04/15/23 at 2000, Until Discontinu ed, Routine [facility] warfarin (COUMADIN) tablet 5 mg 2022-04 23:00: 00 Yes 5mg 5 mg, Oral, DAILY AT 1700, First dose on Sun04/15/23 at 1700, Until Discontinu ed, Routine
INR Goal Range: 2-3
IND ICATION (More than one indication for warfarin can be selected): Other (please enter in the Comments section) [facility] gabapentin (NEURONTIN) capsule 300 mg 2022-04 05:00: 00 04-15 10:34 :00 No 300mg 300 mg, Oral, ONCE, 1 dose, On [facility] 04/14/23 at 2300, Routine [facility] traMADoL (ULTRAM) tablet 50 mg 2022-04 04:15: 00 04-15 03:37 :00 No 50mg 50 mg, Oral, ONCE NOW, 1 dose, On 04/14/23 at 2215, Routine [facility] alum-mag hydroxide-s imeth (MAG-AL PLUS) 200-200-20 mg/5 mL suspension 30 mL 2022-04 03:12: 09 Yes 30mL 30 mL, Oral, Q6HPRN, Starting on 04/14/23 at 2112, Until Discontinu ed, Routine, Indigestio n [facility] naproxen (NAPROSYN) tablet 250 mg 2022-04 19:00: 00 04-14 19:52 :00 No 250mg 250 mg, Oral, ONCE, 1 dose, On 04/14/23 at 1300, Routine [facility] methocarbam oL (ROBAXIN) tablet 1,000 mg 2022-04 09:30: 00 04-14 10:35 :00 No 1000mg 1,000 mg, Oral, ONCE NOW, 1 dose, On 04/14/23 at 0330, Routine [facility] gabapentin (NEURONTIN) capsule 300 mg 2022-04 04:00: 00 04-14 03:21 :00 No 300mg 300 mg, Oral, ONCE NOW, 1 dose, On Sun04/13/23 at 2200, Routine [facility] atorvastati n (LIPITOR) tablet 40 mg 2022-04 03:00: 00 Yes 40mg 40 mg, Oral, QHS, First dose on Sun04/13/23 at 2100, Until Discontinu ed, Routine [facility] nicotine (NICODERM) 14 mg/24 hr patch 1 Patch 2022-04 22:45: 00 Yes 1{patch } 1 Patch, Topical, Administer over 24 Hours, Q24H, First dose on Sun04/13/23 at 1645, Until Discontinu ed, Routine [facility] azithromyci n (ZITHROMAX) 500 mg in NaCl 0.9% (NS) 250 mL VIAL-MATE IV piggyback 2022-04 15:15: 00 04-15 15:26 :00 No 500mg 500 mg, IV Piggyback, Q24H ABX, 3 doses, First dose on Sun04/13/23 at 0915, Last dose on Sun04/15/23 at 0915, Administer over 60 Minutes, 250 mL
Reas on for Anti-Infec tive: Empiric Therapy for Suspected Infection< br>Empiric Therapy Site: Respirator y
Durat ion of therapy: 5 days [facility] aspirin chewable tablet 81 mg 2022-04 15:00: 00 Yes 81mg 81 mg, Oral, DAILY, First dose on Sun04/13/23 at 0900, Until Discontinu ed, Routine [facility] predniSONE (DELTASONE) tablet 40 mg 2022-04 15:00: 00 04-17 14:40 :00 No 40mg 40 mg, Oral, DAILY, 5 doses, First dose on Sun04/13/23 at 0900, Last dose on Sun04/17/23 at 0900, Routine [facility] triamcinolo ne acetonide (KENALOG) 0.1 % ointment 2022-04 14:00: 00 Yes Topical, BID, First dose on Sun04/13/23 at 0800, Until Discontinu ed, Routine [facility] ipratropium -albuteroL (DUONEB) 0.5 mg-3 mg(2.5 mg base)/3 mL nebulizer solution 3 mL 2022-04 14:00: 00 Yes 3mL 3 mL, Inhalation , QID, First dose on Sun04/13/23 at 0800, Until Discontinu ed, Routine [facility] budesonide (PULMICORT RESPULE) nebulizer solution 0.25 mg 2022-04 14:00: 00 04-16 14:11 :26 No .25mg 0.25 mg, Inhalation , BID, First dose on Sun04/13/23 at 0800, Until Discontinu ed, Routine [facility] rivaroxaban (XARELTO) tablet 2.5 mg 2022-04 14:00: 00 04-15 21:38 :28 No 2.5mg 2.5 mg, Oral, BID, First dose on Sun04/13/23 at 0800, Until Discontinu ed, Routine [facility] guaiFENesin 100 mg/5 mL solution 200 mg 2022-04 12:06: 05 Yes 200mg 200 mg, Oral, Q4HPRN, Starting on Sun04/13/23 at 0606, Until Discontinu ed, Routine, Cough [facility] albuterol (VENTOLIN) inhaler 2 Puff 2022-04 12:05: 12 04-16 14:08 :03 No 2{puff} 2 Puff, Inhalation , Q4HPRN, Starting on Sun04/13/23 at 0605, Until Sun04/16/23 at 0808, Routine, Wheezing, Shortness of Breath [facility] acetaminoph en (TYLENOL) tablet 650 mg 2022-04 12:04: 34 Yes 650mg 650 mg, Oral, Q6HPRN, Starting on Sun04/13/23 at 0604, Until Discontinu ed, Routine, Pain (scale 1-3) [facility] albuterol (PROVENTIL) 2.5 mg /3 mL (0.083 %) nebulizer solution 2.5 mg 2022-04 09:30: 00 04-13 09:27 :00 No 2.5mg 2.5 mg, Inhalation , ONCE, 1 dose, On Sun04/13/23 at 0330, NAEEM [facility] rivaroxaban (XARELTO) tablet 2.5 mg 2022-04 07:30: 00 04-13 07:51 :00 No 2.5mg 2.5 mg, Oral, ONCE, 1 dose, On Sun04/13/23 at 0130, [facility] ipratropium -albuteroL (DUONEB) 0.5 mg-3 mg(2.5 mg base)/3 mL nebulizer solution 6 mL 2022-04 06:45: 00 04-13 06:04 :00 No 6mL 6 mL, Inhalation , ONCE NOW, 1 dose, On Sun04/13/23 at 0045, [facility] ipratropium -albuteroL (DUONEB) 0.5 mg-3 mg(2.5 mg base)/3 mL nebulizer solution 3 mL 2022-04 05:45: 00 04-13 05:42 :00 No 3mL 3 mL, Inhalation , ONCE NOW, 1 dose, On Sun04/12/23 at 2345, [facility] methylpredn isolone sod succ (SOLU-MEDRO L) injection 125 mg 2022-04 05:34: 00 04-13 05:42 :00 No 125mg 125 mg, Intravenou s, ONCE, 1 dose, On Sun04/12/23 at 2345, [facility] aspirin 81 mg chewable tablet 2022-04 00:00: 00 04-10 05:59 :00 No [id number] 81mg Take 1 tablet by mouth in the morning. [facility] nicotine 21 mg/24 hr patch 2022-04 00:00: 00 04-17 00:00 :00 No [id number] 1{patch } Apply 1 Patch to area(s) every 24 (twenty-fo ur) hours. [facility] lanolin alcohol-mo- w.pet-ceres Crea cream 2022-04 00:00: 00 Yes [id number] Apply to area(s) 2 (two) times daily. [facility] triamcinolo ne acetonide 0.1 % ointment 2022-04 00:00: 00 Yes [id number] Apply to area(s) 2 (two) times daily. [facility] atorvastati n 40 mg tablet 2022-04 00:00: 00 04-09 05:59 :00 No [id number] 40mg Take 1 tablet by mouth at bedtime. [facility] budesonide 0.25 mg/2 mL nebulizer solution 2022-04 00:00: 00 04-09 05:59 :00 No [id number] .25mg Inhale 2 mL in the morning and 2 mL in the evening. [facility] oxyCODONE 10 mg Tab 2022-04 00:00: 00 04-17 00:00 :00 No [id number] 10mg Take 1 tablet by mouth every 6 (six) hours as needed for Pain (scale 7-10) for up to 7 days. Indication s: acute pain [facility] rivaroxaban 2.5 mg tablet 2022-04 00:00: 00 04-17 00:00 :00 No 2.5mg Take 1 tablet by mouth in the morning and 1 tablet in the evening. Indication s: PAD [facility] budesonide (PULMICORT RESPULE) nebulizer solution 0.25 mg 2022-04 02:00: 00 Yes .25mg 0.25 mg, Inhalation , BID, First dose on Sun04/06/23 at 1999, Until Discontinu ed, Routine [facility] ceFEPIme (MAXIPIME) 1,000 mg in NaCl 0.9% (NS) 100 mL MINI-BAG 2022-04 02:00: 00 04-07 01:47 :36 No 1000mg 1,000 mg, IV Piggyback, Q8H ABX, 9 doses, First dose (after last modificati on) on Mary 04/05/23 at 2000, Last dose on Sun04/08/23 at 1200, Administer over 4 Hours, 100 mL
Reas on for Anti-Infec tive: Documented Infection< br>Documen sarah Infection Site: Skin / Soft Tissue
Duration of Therapy: 7 days [facility] vancomycin (VANCOCIN) 1,000 mg in NaCl 0.9% (NS) 250 mL VIAL-MATE IV piggyback 2022-04 23:45: 00 04-07 01:47 :36 No 15mg/kg 1,000 mg (rounded from 945 mg = 15 mg/kg ?63 kg), IV Piggyback, Q8H ABX, 9 doses, First dose (after last modificati on) on Sun04/05/23 at 1745, Last dose on Sun04/08/23 at 0945, Administer over 60 Minutes, 250 mL
Reas on for Anti-Infec tive: Documented Infection< br>Documen sarah Infection Site: Skin / Soft Tissue
Duration of Therapy: 7 days [facility] ipratropium -albuteroL (DUONEB) 0.5 mg-3 mg(2.5 mg base)/3 mL nebulizer solution 3 mL 2022-04 18:00: 00 Yes 3mL 3 mL, Inhalation , Q6H, First dose (after last modificati on) on Sun04/05/23 at 1200, Until Discontinu ed, Routine [facility] potassium, sodium phosphates (PHOS-NAK) 280-160-250 mg packet 1 Packet 2022-04 14:15: 00 04-05 19:22 :00 No 1{packe t} 1 Packet, Oral, QID, 2 doses, First dose on Sun04/05/23 at 0815, Last dose on Sun04/05/23 at 1200, Routine [facility] rivaroxaban (XARELTO) tablet 2.5 mg 2022-04 14:00: 00 Yes 2.5mg 2.5 mg, Oral, BID, First dose on Sun04/05/23 at 0800, Until Discontinu ed, Routine [facility] calcium gluconate 1 g in NaCl 50 mL (ISO-OSM) RTU IV infusion 1 g 2022-04 10:45: 00 04-05 12:04 :14 No 1g 1 g, IV Infusion, at 100 mL/hr Administer over 30 Minutes, ONCE, 1 dose, On Sun04/05/23 at 0445, Routine [facility] lanolin alcohol-mo- w.pet-ceres (EUCERIN) cream 2022-04 02:00: 00 Yes Topical, BID, First dose on Sun04/04/23 at 2000, Until Discontinu ed, Routine [facility] triamcinolo ne acetonide (KENALOG) 0.1 % ointment 2022-04 02:00: 00 Yes Topical, BID, First dose on Sun04/04/23 at 2000, Until Discontinu ed, Routine [facility] lactated ringers IV infusion 500 mL 2022-04 17:00: 00 04-04 17:00 :00 No 500mL at 999 mL/hr, 500 mL, Intravenou s, ONCE, 1 dose, On Sun04/04/23 at 1100, Routine [facility] albuterol (PROVENTIL) 2.5 mg /3 mL (0.083 %) nebulizer solution 2.5 mg 2022-04 08:48: 14 Yes 2.5mg 2.5 mg, Inhalation , Q4HPRN, Starting on Sun04/04/23 at 0248, Until Discontinu ed, Routine, Shortness of Breath, Wheezing [facility] albumin (ALBUTEIN 5 %) 5 % injection 25 g 2022-04 07:45: 00 04-04 08:06 :32 No 25g 25 g, IV Infusion, ONCE, 1 dose, On Sun04/04/23 at 0145, 500 mL
Mary cation: POST-OPERA TIVE VOLUME RESUSCITAT ION-CARDIA C SURGERY
Comments: May only be used if 3L or more of crystalloi d has been administer ed within a given 24 hour period without an adequate hemodynami c response. [facility] albumin (ALBUTEIN 5 %) 5 % injection 25 g 2022-04 04:30: 00 04-04 04:16 :00 No 25g 25 g, IV Infusion, ONCE, 1 dose, On Sun04/03/23 at 2230, 500 mL
Mary cation: POST-OPERA TIVE VOLUME RESUSCITAT ION-CARDIA C SURGERY
Comments: May only be used if 3L or more of crystalloi d has been administer ed within a given 24 hour period without an adequate hemodynami c response. [facility] atorvastati n (LIPITOR) tablet 40 mg 2022-04 03:00: 00 Yes 40mg 40 mg, Oral, QHS, First dose (after last modificati on) on Sun04/03/23 at 2100, Until Discontinu ed, Routine [facility] FENTanyl 1000 mcg/100 mL 0.9% NaCl [employer] 2022-04 23:45: 00 Yes Patient Bolus Dose: 20 mcg
Loc kout Interval: 7 Minutes
Basal Rate: 0 mcg/hr
Four Hour Dose Limit: 160 mcg
IV Infusion, 100 mL, CONTINUOUS , Starting on Sun04/03/23 at 1745, Until Discontinu ed [facility] naloxone (NARCAN) injection 0.4 mg 2022-04 22:39: 14 Yes .4mg 0.4 mg, Slow IV Push, PRN, Starting on Sun04/03/23 at 1639, Until Discontinu ed, Routine, Sedation/R espiratory Depression [facility] FENTanyl (SUBLIMAZE) 50 mcg/mL Load & Rescue dose 2022-04 22:39: 14 Yes Slow IV Push, Routine [facility] FENTanyl PF (SUBLIMAZE (PF)) injection 25 mcg 2022-04 20:01: 50 04-03 22:05 :00 No 25ug 25 mcg, Slow IV Push, Q5MIN PRN, 4 doses, Starting on Sun04/03/23 at 1401, Until Discontinu ed, Routine, Pain (scale 4-6), PACU [facility] heparin 25,000 Units/250 mL (Premixed Bag) in 0.45 % NS 2022-04 19:40: 09 Yes 500U/h 500 Units/hr (5 mL/hr), IV Infusion, TITRATE, Parameters in Admin. Instr., Starting on Sun04/03/23 at 1340
&n bsp;DO NOT ADJUST INFUSION RATE.&nbsp ;
[facility] iodixanoL (VISIPAQUE 270-150 mL) injection 2022-04 18:16: 00 04-03 21:38 :25 No PRN, Starting on Sun04/03/23 at 1216, Until Sun04/03/23 at 1538, Routine, Intra-op [facility] heparin 1,000 unit/mL injection 2022-04 15:54: 00 04-03 20:09 :02 No PRN, Starting on Sun04/03/23 at 0954, Until Sun04/03/23 at 1409, Routine, Intra-op [facility] ceFEPIme (MAXIPIME) 1,000 mg in NaCl 0.9% (NS) 100 mL MINI-BAG 2022-04 02:00: 00 04-10 01:59 :00 No 1000mg 1,000 mg, IV Piggyback, Q8H ABX, 21 doses, First dose (after last modificati on) on Sun04/02/23 at 2000, Last dose on Sun04/09/23 at 1200, Administer over 4 Hours, 100 mL
Reas on for Anti-Infec tive: Documented Infection< br>Documen sarah Infection Site: Skin / Soft Tissue
Duration of Therapy: 7 days [facility] vancomycin (VANCOCIN) 1,000 mg in NaCl 0.9% (NS) 250 mL VIAL-MATE IV piggyback 2022-04 23:09: 30 04-09 23:14 :00 No 15mg/kg 1,000 mg (rounded from 945 mg = 15 mg/kg ?63 kg), IV Piggyback, Q12H ABX, 14 doses, First dose on Sun04/02/23 at 1715, Last dose on Sun04/09/23 at 0515, Administer over 60 Minutes, 250 mL
Reas on for Anti-Infec tive: Documented Infection< br>Documen sarah Infection Site: Skin / Soft Tissue
Duration of Therapy: 7 days [facility] acetaminoph en (TYLENOL) tablet 500 mg 2022-04 18:00: 00 Yes 500mg 500 mg, Oral, Q6H, First dose (after last modificati on) on Sun04/02/23 at 1200, Until Discontinu ed, Routine [facility] FENTanyl PF (SUBLIMAZE (PF)) injection 25 mcg 2022-04 13:21: 27 Yes 25ug 25 mcg, Slow IV Push, Q6HPRN, Starting on Sun04/02/23 at 0721, Until Discontinu ed, Routine, breakthrou gh pain not responding to oral agents [facility] oxyCODONE immediate release tablet 10 mg 2022-04 13:21: 04 Yes 10mg 10 mg, Oral, Q6HPRN, Starting on Sun04/02/23 at 0721, Until Discontinu ed, Routine, Pain (scale 7-10)
F aculty member approving Restricted medication : GILBERT RODRÍGUEZ [facility] atorvastati n (LIPITOR) tablet 10 mg 2022-04 03:00: 00 04-03 20:30 :41 No 10mg 10 mg, Oral, QHS, First dose on Sun03/30/23 at 2100, Until Discontinu ed, Routine [facility] budesonide- formoteroL (SYMBICORT) 80-4.5 mcg/actuati on inhaler 2 Puff 2022-04 02:00: 00 Yes 2{puff} 2 Puff, Inhalation , BID, First dose on Sun03/30/23 at 2000, Until Discontinu ed, Routine [facility] NaCl 0.9% (NS) IV infusion 250 mL 2022-04 18:45: 00 04-03 20:29 :58 No [id number] 250mL at 50 mL/hr, IV Infusion, CONTINUOUS , Starting on Sun03/30/23 at 1245, Until Sun04/03/23 at 1429, Routine
To keep vein open
[facility] nicotine (NICODERM) 21 mg/24 hr patch 1 Patch 2022-04 18:00: 00 Yes 1{patch } 1 Patch, Topical, Administer over 24 Hours, Q24H, First dose on Sun03/30/23 at 1200, Until Discontinu ed, Routine [facility] perflutren lipid microsphere s (DEFINITY) injection 2 mL 2022-04 18:00: 00 03-30 17:45 :00 No [id number] 2mL 2 mL, IV Push, ONCE, 1 dose, On Sun03/30/23 at 1200, Routine [facility] DOBUTamine (DOBUTREX) 250 mg/250 mL RTU infusion 2022-04 17:40: 08 04-02 12:13 :24 No [id number] 5ug/kg/ min 5 mcg/kg/min ?63 kg (18.9 mL/hr), IV Infusion, TITRATE, MAP Goal > or = 65 mmHg, Titrate per admin instructio ns, Starting on Sun03/30/23 at 1140
No te and document the precise time that this is 3. ac complished . Begin the count with the EKG system's DSE applicatio n program. This is time zero.&nbsp ; At 2 minutes and 30 seconds after beginning the initial dosing, acquire parasterna l long axis and parasterna l short axis view at papillary level, apical 4 chamber, 2 chamber and apical long axis view, and BP At the 3 minute interval, simultaneo usly obtain a 12 lead EKG, heart rate and 02 saturation and increase the Dobutamine infusion to 10 mcg/kg/min . At the 5 minutes and 30 second interval, acquire parasterna l long axis and parasterna l short&nbsp ;axis view at papillary level, apical 4 chamber, 2 chamber and apical long axis view and measure BP. At the 6 minute interval, simultaneo usly obtain a 12 lead EKG, heart rate and 02saturati on an d increase the Dobutamine infusion to 20 mcg/kg/min . At the 8 minutes and 30 second interval, acquire parasterna l long axis and parasterna l short&nbsp ;axis view at papillary level, apical 4 chamber, 2 chamber and apical long axis view and measure BP. At the 9 minute interval, simultaneo usly obtain a 12 lead EKG, heart rate and 02 saturation and increase the Dobutamine infusion to 30 mcg/kg/min . (see Adjunctive Therapy)&n bsp; At the 11 minutes and 30 second interval, acquire parasterna l long axis and parasterna l short&nbsp ;axis view at papillary level, apical 4 chamber, 2 chamber and apical long axis view and m easure BP. At the 12 minute interval, simultaneo usly obtain a 12 lead EKG, heart rate and 02 saturation and increase the Dobutamine infusion to 40 mcg/kg/min . (see Adjunctive Therapy&nb sp; At the 14 minutes and 30 second interval, acquire parasterna l long axis and parasterna l short&nbsp ;axis view at papillary level, apical 4 chamber, 2 chamber and apical long axis view and m easure BP. At the 15 minute interval, simultaneo usly obtain a 12 lead EKG, heart rate and 02 saturation and terminate the Dobutamine infusion. (see Adjunctive Therapy)<b r> [facility] ipratropium -albuteroL (DUONEB) 0.5 mg-3 mg(2.5 mg base)/3 mL nebulizer solution 3 mL 2022-04 15:45: 00 Yes 3mL 3 mL, Inhalation , QID, First dose (after last modificati on) on Sun03/30/23 at 0945, Until Discontinu ed, Routine [facility] sulfur hexafluorid e microsphr (LUMASON) injection 5 mL 2022-04 15:45: 00 03-30 15:45 :00 No [id number] 5mL 5 mL, Intravenou s, ONCE, 1 dose, On Sun03/30/23 at 0945, Routine
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
Indicatio n for use: None of the above [facility] albuterol (VENTOLIN) inhaler 2 Puff 2022-04 12:39: 29 Yes 2{puff} 2 Puff, Inhalation , Q4HPRN, Starting on Sun03/30/23 at 0639, Until Discontinu ed, Routine, Wheezing, Shortness of Breath [facility] guaiFENesin 100 mg/5 mL solution 200 mg 2022-04 12:39: 14 Yes 200mg 200 mg, Oral, Q4HPRN, Starting on Sun03/30/23 at 0639, Until Discontinu ed, Routine, Cough [facility] heparin 1000 unit/mL injection Soln 5,000 Units 2022-04 01:45: 00 03-30 03:42 :00 No 5000U 5,000 Units, IV Push, ONCE, 1 dose, On Mary 03/29/23 at 1945, Routine [facility] heparin 25,000 Units/250 mL (Premixed Bag) in 0.45 % NS 2022-04 01:31: 20 04-03 19:41 :21 No 0U/h 0-2,350 Units/hr (0-23.5 mL/hr), IV Infusion, TITRATE, Parameters in Admin. Instr., Starting on Sun03/29/23 at 1931
In itiate dosing:&nb sp; & nbsp;&nbsp ; -Patient 73 kg or under: Patient actual weight not available. (Calculate d dose at 18 units/kg/h r) &n bsp; &nbs p; -Patient over 73 k,300 units/hr&n bsp;DO NOT Exceed the MAXIMUM 1,300 units/hr for initiation of heparin drip.&nbsp ; CAU TION - If LMWH given in ER, AVOID bolus and start next dose/drip 12 hrs after ER dosage.&nb sp; M ust program rate using programmab le infusion pump.&nbsp ; Estella ck with the ordering provider first prior to any administra tion should the patient be on existing/a dditional anticoagul ant therapy. Rang e, Dosing and Testing: &nbs p;DO NOT ADJUST INITIAL BOLUS OR INITIAL INFUSION RATE.&nbsp ; _ &nb sp;[facility] ONLY &nbs p; - aPTT < 35: & nbsp;Bolus 5000 units, increase rate 300 units/hr&n bsp; - aPTT 35-44:&nbs p; J Carlos kirti 3000 units, increase rate 200 units/hr&n bsp; - aPTT 45-54:&nbs p; In crease rate 100 units/hr&n bsp; - aPTT 55-85:&nbs p; NO CHANGE&nbs p; - aPTT 86-95:&nbs p;&nbs p;Decrease rate 100 units/hr&n bsp; - aPTT 96-120:&nb sp; H old 30 minutes, decrease rate 150 units/hr&n bsp; - aPTT > 120: Hold 60 minutes, decrease rate 200 units/hr&n bsp; Check aPTT 6 hours after initiation , then Q6H after every change, aPTT Q12H once therapeuti c levels are reached.&n bsp; &nbs p; __ &n bsp;FOR [facility] ONLY - aPTT < 40: & nbsp;Bolus 5000 units, increase rate 300 units/hr&a mp;nbsp; - aPTT 40-49:&nbs p; J Carlos kirti 3000 units, increase rate 200 units/hr&n bsp; - aPTT 50-59:&nbs p; In crease rate 100 units/hr&n bsp; - aPTT 60-85:&nbs p; NO CHANGE&nbs p; - aPTT 86-95:&nbs p; De crease rate 100 units/hr&n bsp; - aPTT 96-120:&nb sp; H old 30 minutes, decrease rate 150 units/hr&n bsp; - aPTT > 120:&n bsp; Hold 60 minutes, decrease rate 200 units/hr&n bsp; Check aPTT 6 hours after initiation , then Q6H after every change, aPTT Q12H once therapeuti c levels are reached.<b r> [facility] heparin (1,000 unit/mL, 10 mL vial) 2022-04 01:31: 11 Yes 3000U FOR REBOLUSING , Starting on Sun03/29/23 at 1931, Until Discontinu ed, Routine
Dosing based on aPTT testing parameters (refer to continuous heparin drip order)
[facility] ondansetron (ZOFRAN (PF)) injection 4 mg 2022-04 01:27: 56 Yes 4mg 4 mg, Slow IV Push, Q6HPRN, Starting on Sun03/29/23 at 1927, Until Discontinu ed, Routine, Nausea and Vomiting (N/V) [facility] HYDROcodone -acetaminop hen (NORCO) 10-325 mg tablet 1 tablet 2022-04 01:27: 33 04-02 13:22 :12 No 1{tbl} 1 tablet, Oral, Q6HPRN, Starting on Sun03/29/23 at 1927, Until Sun04/02/23 at 0722, Routine, Pain (scale 7-10) [facility] traMADoL (ULTRAM) tablet 50 mg 2022-04 01:27: 30 Yes 50mg 50 mg, Oral, Q6HPRN, Starting on Mary 03/29/23 at 1927, Until Discontinu ed, Routine, Pain (scale 4-6) [facility] traMADoL 50 mg tablet 2022-04 00:00: 00 04-09 00:00 :00 No [id number] 50mg Take 1 tablet by mouth every 6 (six) hours as needed for Pain (scale 4-6). Indication s: acute pain [facility] HYDROcodone -acetaminop hen 5-325 mg tablet 2022-04 00:00: 00 04-09 00:00 :00 No [id number] 2{tbl} Take 2 tablets by mouth every 6 (six) hours as needed for Pain (scale 7-10) for up to 7 days. Indication s: acute pain [facility] traMADoL 50 mg tablet 2022-04 00:00: 00 04-05 05:59 :00 No [id number] 100mg Take 2 tablets by mouth every 6 (six) hours as needed for Pain (scale 4-6) for up to 7 days. Indication s: acute pain [facility] HYDROcodone -acetaminop hen 10-325 mg tablet 2022-04 00:00: 00 04-09 00:00 :00 No [id number] 1{tbl} Take 1 tablet by mouth every 6 (six) hours as needed for Pain (scale 7-10). Indication s: acute pain [facility] clindamycin 300 mg capsule 2022-04 00:00: 00 03-29 00:00 :00 No [id number] 300mg Take 1 capsule by mouth 4 (four) times daily. [facility] HYDROcodone -acetaminop hen (NORCO) 5-325 mg tablet 2022-04 0-26 00:00: 00 03-02 04:59 :00 No [id number] 1{tbl} Take 1 tablet by mouth every 6 (six) hours as needed for Pain (scale 1-3) for up to 7 days. Indication s: acute pain [facility] ipratropium -albuteroL 0.5 mg-3 mg(2.5 mg base)/3 mL nebulizer solution 2022-04 00:00: 00 Yes [id number] 3mL Inhale 3 mL every 4 (four) hours as needed for Wheezing or Shortness of Breath. [facility] clindamycin 300 mg capsule 2022-04 00:00: 00 04-09 00:00 :00 No [id number] 300mg Take 1 capsule by mouth 4 (four) times daily. [facility] traMADoL 50 mg tablet 2022-04 00:00: 00 02-28 04:59 :00 No [id number] 50mg Take 1 tablet by mouth every 6 (six) hours as needed for Pain (scale 7-10) for up to 7 days. He denies allergy to this medication Indication s: acute pain [facility] ketorolac (TORADOL) injection 30 mg 2022-04 20:15: 00 02-19 19:20 :00 No [id number] 9107 30mg [facility] ketorolac (TORADOL) injection 30 mg 2022-04 19:45: 00 02-19 19:19 :43 No [id number] 9107 30mg [facility] fluticasone -umeclidin- vilanter (TRELEGY ELLIPTA) 100-62.5-25 mcg DsDv 2022-04 00:00: 00 04-17 00:00 :00 No [id number] 1{puff} Inhale 1 Puff in the morning. [facility] ipratropium -albuteroL 0.5 mg-3 mg(2.5 mg base)/3 mL nebulizer solution 2022-04 00:00: 00 02-20 00:00 :00 No [id number] 3mL Inhale 3 mL every 4 (four) hours as needed for Wheezing or Shortness of Breath. [facility] predniSONE 20 mg tablet 12-30 00:00: 00 01-03 04:59 :00 No [id number] 40mg Take 2 tablets by mouth in the morning for 3 days. [facility] tiotropium 18 mcg inhalation 12-29 00:00: 00 01-29 04:59 :00 No [id number] 18ug Inhale 1 capsule in the morning for 30 days. [facility] azithromyci n 500 mg tablet 12-29 00:00: 00 01-02 04:59 :00 No [id number] 500mg Take 1 tablet by mouth in the morning for 3 days. [facility] azithromyci n (ZITHROMAX) tablet 500 mg 12-27 20:00: 00 12-27 19:23 :00 No 500mg 500 mg, Oral, DAILY, 1 dose, First dose on Sun12/27/22 at 1500, NAEEM
Re ason for Anti-Infec tive: Empiric Therapy for Suspected Infection< br>Empiric Therapy Site: Respirator y
Durat ion of therapy: 72 hours [facility] predniSONE (DELTASONE) tablet 40 mg 12-26 14:00: 00 12-31 13:59 :00 No 40mg 40 mg, Oral, DAILY, 5 doses, First dose on Sun12/26/22 at 0900, Last dose on Sun12/30/22 at 0900, Routine [facility] sucralfate (CARAFATE) tablet 1 g 12-26 12:30: 00 12-27 14:53 :12 No 1g 1 g, Oral, AC+HS, First dose on Sun12/26/22 at 0730, Until Discontinu ed, Routine [facility] pantoprazol e (PROTONIX) EC tablet 40 mg 12-26 11:00: 00 Yes 40mg 40 mg, Oral, QAM-0600, First dose on Sun12/26/22 at 0600, Until Discontinu ed, Routine [facility] pantoprazol e (PROTONIX) injection 40 mg 12-26 10:15: 00 12-26 09:49 :00 No 40mg 40 mg, Slow IV Push, ONCE, 1 dose, On Sun12/26/22 at 0515 [facility] acetaminoph en (TYLENOL) tablet 1,000 mg 12-26 10:15: 00 12-26 09:49 :00 No 1000mg 1,000 mg, Oral, ONCE, 1 dose, On Sun12/26/22 at 0515, Routine [facility] enoxaparin (LOVENOX) injection 40 mg 12-25 22:00: 00 Yes 40mg 40 mg, Subcutaneo us, DAILY, First dose on Sun12/25/22 at 1700, Until Discontinu ed, Routine [facility] albuterol (PROVENTIL) 2.5 mg /3 mL (0.083 %) nebulizer solution 2.5 mg 12-25 21:55: 47 Yes 2.5mg 2.5 mg, Inhalation , Q4HPRN, Starting on Sun12/25/22 at 1655, Until Discontinu ed, Routine, Shortness of Breath, Wheezing [facility] ipratropium -albuteroL (DUONEB) 0.5 mg-3 mg(2.5 mg base)/3 mL nebulizer solution 3 mL 12-25 21:00: 00 12-25 19:43 :25 No 3mL 3 mL, Inhalation , QID, First dose on Sun12/25/22 at 1600, Until Discontinu ed, Routine [facility] azithromyci n (ZITHROMAX) 500 mg in NaCl 0.9% (NS) 250 mL VIAL-MATE IV piggyback 12-25 20:00: 00 12-27 15:18 :03 No 500mg 500 mg, IV Piggyback, Q24H ABX, 3 doses, First dose on Sun12/25/22 at 1500, Last dose on Sun12/27/22 at 1500, Administer over 60 Minutes, 250 mL
Reas on for Anti-Infec tive: Empiric Therapy for Suspected Infection< br>Empiric Therapy Site: Respirator y
Durat ion of therapy: 72 hours [facility] guaiFENesin 100 mg/5 mL solution 200 mg 12-25 18:48: 26 Yes 200mg 200 mg, Oral, Q4HPRN, Starting on Sun12/25/22 at 1348, Until Discontinu ed, Routine, Cough [facility] acetaminoph en (TYLENOL) tablet 650 mg 12-25 18:47: 32 Yes 650mg 650 mg, Oral, Q6HPRN, Starting on Sun12/25/22 at 1347, Until Discontinu ed, Routine, Pain (scale 1-3) [facility] iopamidol (ISOVUE 370-500 mL) injection 70 mL 12-25 14:59: 00 12-25 14:59 :00 No [id number] 70mL 70 mL, Intravenou s, ONCE, 1 dose, On Sun12/25/22 at 1015, Routine [facility] ipratropium -albuteroL (DUONEB) 0.5 mg-3 mg(2.5 mg base)/3 mL nebulizer solution 3 mL 12-25 14:00: 00 12-25 13:15 :00 No 3mL 3 mL, Inhalation , ONCE NOW, 1 dose, On Sun12/25/22 at 0900, Routine [facility] methylPREDN ISolone sodium succinate (SOLU-MEDRO L) injection 125 mg 12-25 14:00: 00 12-25 13:15 :00 No 125mg 125 mg, Slow IV Push, ONCE, 1 dose, On Sun12/25/22 at 0900, Routine [facility] ipratropium -albuteroL 0.5 mg-3 mg(2.5 mg base)/3 mL nebulizer solution 12-04 00:00: 00 02-19 00:00 :00 No [id number] USE 1 VIAL VIA NEBULIZER EVERY 4 HOURS NEEDED FOR WHEEZE OR FOR SHORTNESS OF BREATH [facility] iopamidol (ISOVUE 370-500 mL) injection 75 mL 11-29 05:00: 00 11-29 04:05 :00 No [id number] 75mL 75 mL, Intravenou s, ONCE, 1 dose, On Sun11/29/22 at 0000, Routine [facility] ipratropium -albuteroL (DUONEB) 0.5 mg-3 mg(2.5 mg base)/3 mL nebulizer solution 3 mL 11-29 04:30: 00 11-29 04:15 :00 No 3mL 3 mL, Inhalation , Q10M, 3 doses, First dose on Sun11/28/22 at 2330, Last dose on Sun11/28/22 at 2350, Routine [facility] methylpredn isolone sod succ (SOLU-MEDRO L) injection 125 mg 11-29 04:15: 00 11-29 04:15 :00 No 125mg 125 mg, Intravenou s, ONCE, 1 dose, On Sun11/28/22 at 2315, 2 mL [facility] aspirin tablet 325 mg 11-29 04:15: 00 11-29 03:31 :00 No 325mg 325 mg, Oral, ONCE, 1 dose, On Sun11/28/22 at 2315, Routine [facility] NaCl 0.9% (NS) bolus infusion 500 mL 11-29 03:30: 00 11-29 04:50 :00 No 500mL at 999 mL/hr, 500 mL, IV Infusion, ONCE, 1 dose, On Sun11/28/22 at 2230, STAT [facility] albuterol 90 mcg/actuati on inhaler 11-28 00:00: 00 Yes [id number] 2{puff} Inhale 2 Puffs every 4 (four) hours as needed for Wheezing or Shortness of Breath. [facility] predniSONE 20 mg tablet 11-28 00:00: 00 12-29 00:00 :00 No [id number] Take 40 mg (2 tablets) daily for 5 days [facility] doxycycline hyclate 100 mg capsule 11-28 00:00: 00 12-29 00:00 :00 No [id number] 100mg Take 1 capsule by mouth in the morning and 1 capsule in the evening. [facility] methylPREDN ISolone sod succ (SOLU-MEDRO L (PF)) injection 40 mg 11-15 17:25: 00 Yes 40mg 40 mg, Intravenou s, Q24H, First dose (after last modificati on) on Sun11/15/22 at 1230, Until Discontinu ed, 1 mL [facility] predniSONE 20 mg tablet 11-15 00:00: 00 11-20 04:59 :00 No [id number] 20mg Take 1 tablet by mouth in the morning for 4 days. [facility] azithromyci n (ZITHROMAX) tablet 500 mg 11-14 14:00: 00 11-15 13:17 :00 No 500mg 500 mg, Oral, Q24H, 2 doses, First dose (after last modificati on) on Sun11/14/22 at 0900, Last dose on Sun11/15/22 at 0900, NAEEM
Re ason for Anti-Infec tive: Empiric Therapy for Suspected Infection< br>Empiric Therapy Site: Respirator y
Durat ion of therapy: 72 hours [facility] methylPREDN ISolone sod succ (SOLU-MEDRO L (PF)) injection 40 mg 11-13 19:00: 00 11-14 21:27 :11 No 40mg 40 mg, Intravenou s, Q6H, First dose on Sun11/13/22 at 1400, Until Discontinu ed, 1 mL [facility] Hyaluronida se, Human Recomb. (HYLENEX) injection 150 Units 11-13 18:00: 00 11-13 17:25 :00 No 150U 150 Units, Subcutaneo us, ONCE, 1 dose, On Sun11/13/22 at 1300, Routine [facility] azithromyci n (ZITHROMAX) 500 mg in NaCl 0.9% (NS) 250 mL VIAL-MATE IV piggyback 11-13 16:00: 00 11-13 17:28 :38 No 500mg 500 mg, IV Piggyback, Q24H ABX, 3 doses, First dose on Sun11/13/22 at 1100, Last dose on Sun11/15/22 at 1100, Administer over 60 Minutes, 250 mL
Reas on for Anti-Infec tive: Empiric Therapy for Suspected Infection< br>Empiric Therapy Site: Respirator y
Durat ion of therapy: 72 hours [facility] enoxaparin (LOVENOX) injection 40 mg 11-13 14:00: 00 Yes 40mg 40 mg, Subcutaneo us, DAILY, First dose on Sun11/13/22 at 0900, Until Discontinu ed, Routine [facility] ipratropium -albuteroL (DUONEB) 0.5 mg-3 mg(2.5 mg base)/3 mL nebulizer solution 3 mL 11-13 13:00: 00 Yes 3mL 3 mL, Inhalation , QID, First dose on Sun11/13/22 at 0800, Until Discontinu ed, Routine [facility] budesonide- formoteroL (SYMBICORT) 80-4.5 mcg/actuati on inhaler 2 Puff 11-13 13:00: 00 Yes 2{puff} 2 Puff, Inhalation , BID, First dose on Sun11/13/22 at 0800, Until Discontinu ed [facility] ipratropium -albuteroL (DUONEB) 0.5 mg-3 mg(2.5 mg base)/3 mL nebulizer solution 3 mL 11-13 09:01: 28 Yes 3mL 3 mL, Inhalation , QIDPRN, Starting on Sun11/13/22 at 0401, Until Discontinu ed, Routine, Wheezing, Shortness of Breath, Bronchospa sm, Chest tightness [facility] ondansetron (ZOFRAN (PF)) injection 4 mg 11-13 09:01: 16 Yes 4mg 4 mg, Slow IV Push, Q6HPRN, Starting on Sun11/13/22 at 0401, Until Discontinu ed, Routine, Nausea and Vomiting (N/V) [facility] acetaminoph en (TYLENOL) tablet 650 mg 11-13 09:01: 05 Yes 650mg 650 mg, Oral, Q6HPRN, Starting on Sun11/13/22 at 0401, Until Discontinu ed, Routine, Pain (scale 1-3) [facility] guaiFENesin 100 mg/5 mL solution 200 mg 11-13 08:59: 05 Yes 200mg 200 mg, Oral, Q4HPRN, Starting on Sun11/13/22 at 0359, Until Discontinu ed, Routine, Cough [facility] ipratropium -albuteroL (DUONEB) 0.5 mg-3 mg(2.5 mg base)/3 mL nebulizer solution 3 mL 11-13 07:30: 00 11-13 06:48 :00 No 3mL 3 mL, Inhalation , ONCE NOW, 1 dose, On Sun11/13/22 at 0230, NAEEM [facility] methylpredn isolone sod succ (SOLU-MEDRO L) injection 125 mg 11-13 07:30: 00 11-13 06:39 :00 No 125mg 125 mg, Slow IV Push, ONCE, 1 dose, On Sun11/13/22 at 0230, STAT [facility] levoFLOXaci n (LEVAQUIN) tablet 500 mg 11-13 06:30: 00 11-13 06:39 :00 No 500mg 500 mg, Oral, ONCE, 1 dose, On Sun11/13/22 at 0130, NAEEM
Re ason for Anti-Infec tive: Empiric Therapy for Suspected Infection< br>Empiric Therapy Site: Respirator y
Durat ion of therapy: 72 hours [facility] predniSONE 20 mg tablet 10-24 00:00: 00 10-28 04:59 :00 No [id number] 40mg Take 2 tablets by mouth in the morning for 3 days. [facility] predniSONE (DELTASONE) tablet 40 mg 10-23 14:00: 00 10-27 13:59 :00 No 40mg 40 mg, Oral, DAILY, 4 doses, First dose on Sun10/23/22 at 0900, Last dose on Sun10/26/22 at 0900, Routine [facility] ipratropium -albuteroL (DUONEB) 0.5 mg-3 mg(2.5 mg base)/3 mL nebulizer solution 3 mL 10-22 23:00: 00 Yes 3mL 3 mL, Inhalation , Q6H, First dose on Sun10/22/22 at 1800, Until Discontinu ed, Routine [facility] enoxaparin (LOVENOX) injection 40 mg 10-22 22:00: 00 Yes 40mg 40 mg, Subcutaneo us, DAILY, First dose on Sun10/22/22 at 1700, Until Discontinu ed, Routine [facility] nicotine (NICODERM) 14 mg/24 hr patch 1 Patch 10-22 20:15: 00 Yes 1{patch } 1 Patch, Topical, Administer over 24 Hours, Q24H, First dose on Sun10/22/22 at 1515, Until Discontinu ed, Routine [facility] guaiFENesin 100 mg/5 mL solution 200 mg 10-22 19:16: 07 Yes 200mg 200 mg, Oral, Q6HPRN, Starting on Sun10/22/22 at 1416, Until Discontinu ed, Routine, Cough [facility] ondansetron (ZOFRAN (PF)) injection 4 mg 10-22 19:14: 47 Yes 4mg 4 mg, Slow IV Push, Q6HPRN, Starting on Sun10/22/22 at 1414, Until Discontinu ed, Routine, Nausea and Vomiting (N/V) [facility] acetaminoph en (TYLENOL) tablet 650 mg 10-22 19:14: 36 Yes 650mg 650 mg, Oral, Q6HPRN, Starting on Sun10/22/22 at 1414, Until Discontinu ed, Routine, Pain (scale 1-3), Temp > 38 C [facility] ipratropium -albuteroL (DUONEB) 0.5 mg-3 mg(2.5 mg base)/3 mL nebulizer solution 3 mL 10-22 17:00: 00 10-22 13:57 :48 No 3mL 3 mL, Inhalation , QID, First dose on Sun10/22/22 at 1200, Until Discontinu ed, Routine [facility] ipratropium -albuteroL (DUONEB) 0.5 mg-3 mg(2.5 mg base)/3 mL nebulizer solution 6 mL 10-22 14:45: 00 10-22 13:58 :00 No 6mL 6 mL, Inhalation , ONCE, 1 dose, On Sun10/22/22 at 0945, NAEEM [facility] methylpredn isolone sod succ (SOLU-MEDRO L) injection 125 mg 10-22 14:45: 00 10-22 13:49 :00 No 125mg 125 mg, Intravenou s, ONCE, 1 dose, On Sun10/22/22 at 0945, 2 mL [facility] predniSONE 20 mg tablet 10-18 00:00: 00 10-22 04:59 :00 No [id number] 40mg Take 2 tablets by mouth in the morning for 3 days. [facility] guaiFENesin 100 mg/5 mL solution 10-17 00:00: 00 Yes [id number] 200mg Take 10 mL by mouth every 4 (four) hours as needed for Cough. [facility] albuterol 2.5 mg /3 mL (0.083 %) nebulizer solution 10-17 00:00: 00 12-04 00:00 :00 No [id number] 2.5mg Inhale 3 mL every 2 (two) hours as needed for Shortness of Breath or Wheezing. [facility] nicotine 14 mg/24 hr patch 10-17 00:00: 00 11-17 04:59 :00 No [id number] 1{patch } Apply 1 Patch to area(s) every 24 (twenty-fo ur) hours for 30 days. [facility] predniSONE (DELTASONE) tablet 40 mg 10-16 14:00: 00 10-21 13:59 :00 No 40mg 40 mg, Oral, DAILY, 5 doses, First dose on Sun10/16/22 at 0900, Last dose on Sun10/20/22 at 0900, Routine [facility] enoxaparin (LOVENOX) injection 40 mg 10-15 22:00: 00 Yes 40mg 40 mg, Subcutaneo us, DAILY, First dose on Sun10/15/22 at 1700, Until Discontinu ed, Routine [facility] nicotine (NICODERM) 14 mg/24 hr patch 1 Patch 10-15 17:30: 00 Yes 1{patch } 1 Patch, Topical, Administer over 24 Hours, Q24H, First dose on Sun10/15/22 at 1230, Until Discontinu ed, Routine [facility] ipratropium -albuteroL (DUONEB) 0.5 mg-3 mg(2.5 mg base)/3 mL nebulizer solution 3 mL 10-15 17:00: 00 Yes 3mL 3 mL, Inhalation , Q4H, First dose on Sun10/15/22 at 1200, Until Discontinu ed, Routine [facility] albuterol (PROVENTIL) 2.5 mg /3 mL (0.083 %) nebulizer solution 2.5 mg 10-15 16:26: 27 Yes 2.5mg 2.5 mg, Inhalation , Q2HPRN, Starting on Sun10/15/22 at 1126, Until Discontinu ed, Routine, Shortness of Breath, Wheezing [facility] azithromyci n (ZITHROMAX) 500 mg in NaCl 0.9% (NS) 250 mL VIAL-MATE IV piggyback 10-15 15:15: 00 10-17 17:17 :00 No 500mg 500 mg, IV Piggyback, Q24H ABX, 3 doses, First dose on Sun10/15/22 at 1015, Last dose on Sun10/17/22 at 1015, Administer over 60 Minutes, 250 mL
Reas on for Anti-Infec tive: Empiric Therapy for Suspected Infection< br>Empiric Therapy Site: Respirator y
Durat ion of therapy: 72 hours [facility] ipratropium -albuteroL (DUONEB) 0.5 mg-3 mg(2.5 mg base)/3 mL nebulizer solution 3 mL 10-15 14:30: 00 10-15 13:42 :00 No 3mL 3 mL, Inhalation , ONCE NOW, 1 dose, On Sun10/15/22 at 0930, NAEEM [facility] guaiFENesin 100 mg/5 mL solution 200 mg 10-15 14:03: 20 Yes 200mg 200 mg, Oral, Q4HPRN, Starting on Sun10/15/22 at 0903, Until Discontinu ed, Routine, Cough [facility] [facility] acetaminoph en (TYLENOL) tablet 650 mg 10-15 14:02: 39 Yes 650mg 650 mg, Oral, Q6HPRN, Starting on Sun10/15/22 at 0902, Until Discontinu ed, Routine, Pain (scale 1-3) [facility] ipratropium -albuteroL (DUONEB) 0.5 mg-3 mg(2.5 mg base)/3 mL nebulizer solution 3 mL 10-15 13:30: 00 10-15 12:42 :00 No 3mL 3 mL, Inhalation , ONCE NOW, 1 dose, On Sun10/15/22 at 0830, [facility] levoFLOXaci n (LEVAQUIN) tablet 500 mg 10-15 12:30: 00 10-15 12:28 :00 No 500mg 500 mg, Oral, ONCE, 1 dose, On Sun10/15/22 at 0730, NAEEM
Re ason for Anti-Infec tive: Empiric Therapy for Suspected Infection< br>Empiric Therapy Site: Respirator y
Durat ion of therapy: 72 hours [facility] ipratropium -albuteroL (DUONEB) 0.5 mg-3 mg(2.5 mg base)/3 mL nebulizer solution 6 mL 10-15 12:15: 00 10-15 11:30 :00 No 6mL 6 mL, Inhalation , ONCE, 1 dose, On Sun10/15/22 at 0715, Routine [facility] methylPREDN ISolone sod succ (SOLU-MEDRO L (PF)) injection 125 mg 10-15 11:30: 00 10-15 11:30 :00 No 125mg 125 mg, Intravenou s, ONCE, 1 dose, On Sun10/15/22 at 0630, NAEEM [facility] ondansetron (ZOFRAN (PF)) injection 4 mg 10-02 13:30: 00 10-02 13:23 :00 No 4mg 4 mg, Slow IV Push, ONCE, 1 dose, On Sun10/02/22 at 0830, [facility] iopamidol (ISOVUE 370-500 mL) injection 70 mL 10-02 13:29: 00 10-02 13:30 :00 No [id number] 70mL 70 mL, Intravenou s, ONCE, 1 dose, On Sun10/02/22 at 0845, Routine [facility] maalox:diph enhydrAMINE :lidocaine 2 % viscous 1:1:1 (FIRST-MOUT HWASH BLM) oral suspension 15 mL 10-02 13:15: 00 10-02 13:16 :00 No 15mL 15 mL, Oral, ONCE, 1 dose, On Sun10/02/22 at 0815, Routine [facility] sucralfate 1 gram tablet 10-02 00:00: 00 Yes [id number] 1g Take 1 tablet by mouth before meals and at bedtime. [facility] dicyclomine (BENTYL) 10 mg capsule 10-02 00:00: 00 Yes [id number] 10mg Take 1 capsule by mouth every 8 (eight) hours as needed for Abdominal pain. [facility] ondansetron 4 mg disintegrat ing tablet 10-02 00:00: 00 Yes [id number] 4mg Take 1 tablet by mouth every 8 (eight) hours as needed for Nausea and Vomiting (N/V). [facility] omeprazole 20 mg capsule 10-02 00:00: 00 11-02 04:59 :00 No [id number] 20mg Take 1 capsule by mouth in the morning for 30 days. [facility] predniSONE 20 mg tablet 09-19 00:00: 00 09-24 04:59 :00 No [id number] 40mg Take 2 tablets by mouth in the morning for 4 days. [facility] predniSONE (DELTASONE) tablet 40 mg 09-18 14:00: 00 Yes 40mg 40 mg, Oral, DAILY, First dose (after last modificati on) on Sun09/18/22 at 0900, Until Discontinu ed, Routine [facility] azithromyci n (ZITHROMAX) 500 mg in NaCl 0.9% (NS) 250 mL VIAL-MATE IV piggyback 09-18 08:30: 00 09-23 08:29 :00 No 500mg 500 mg, IV Piggyback, Q24H ABX, 5 doses, First dose (after last reorder) on Sun09/18/22 at 0330, Last dose on Sun09/22/22 at 0330, Administer over 60 Minutes, 250 mL
Reas on for Anti-Infec tive: Empiric Therapy for Suspected Infection< br>Empiric Therapy Site: Respirator y
Durat ion of therapy: 72 hours [facility] cefTRIAXone (ROCEPHIN) 1,000 mg in NaCl 0.9% (NS) 100 mL MINI-BAG 09-18 08:00: 00 09-23 07:59 :00 No 1000mg 1,000 mg, IV Piggyback, Q24H ABX, 5 doses, First dose (after last reorder) on Sun09/18/22 at 0300, Last dose on Sun09/22/22 at 0300, Administer over 30 Minutes, 100 mL
Reas on for Anti-Infec tive: Empiric Therapy for Suspected Infection< br>Empiric Therapy Site: Respirator y
Durat ion of therapy: 72 hours [facility] albuterol 90 mcg/actuati on inhaler 09-18 00:00: 00 10-17 00:00 :00 No [id number] 2{puff} Inhale 2 Puffs every 4 (four) hours as needed for Wheezing or Shortness of Breath for up to 30 days. [facility] amoxicillin -clavulanat e (AUGMENTIN) 875-125 mg per tablet 09-18 00:00: 00 09-25 04:59 :00 No [id number] 1{tbl} Take 1 tablet by mouth in the morning and 1 tablet in the evening. Do all this for 6 days. [facility] azithromyci n 250 mg tablet 09-18 00:00: 00 09-23 04:59 :00 No [id number] 250mg Take 1 tablet by mouth in the morning for 4 days. [facility] methylpredn isolone sod succ (SOLU-MEDRO L) injection 40 mg 09-17 17:00: 00 09-17 18:29 :15 No 40mg 40 mg, Intravenou s, Q6H, First dose (after last modificati on) on Sun09/17/22 at 1200, Until Discontinu ed, Routine [facility] enoxaparin (LOVENOX) injection 40 mg 09-17 14:00: 00 Yes 40mg 40 mg, Subcutaneo us, DAILY, First dose on Sun09/17/22 at 0900, Until Discontinu ed, Routine [facility] Fluticasone -Salmeterol (ADVAIR) 100-50 mcg/dose inhalation disk 1 Puff 09-17 13:00: 00 Yes 1{puff} 1 Puff, Inhalation , Q12H, First dose on Sun09/17/22 at 0800, Until Discontinu ed, Routine [facility] ipratropium -albuteroL (DUONEB) 0.5 mg-3 mg(2.5 mg base)/3 mL nebulizer solution 3 mL 09-17 13:00: 00 Yes 3mL 3 mL, Inhalation , QID, First dose on Sun09/17/22 at 0800, Until Discontinu ed, Routine [facility] guaiFENesin (FENESIN IR) tablet 400 mg 09-17 11:52: 07 Yes 400mg 400 mg, Oral, Q4HPRN, Starting on Sun09/17/22 at 0652, Until Discontinu ed, Routine, Congestion /Allergies , Cough [facility] ipratropium (ATROVENT) 0.02 % nebulizer solution 0.5 mg 09-17 11:49: 39 Yes .5mg 0.5 mg, Inhalation , Q4HPRN, Starting on Sun09/17/22 at 0649, Until Discontinu ed, Routine, Wheezing, Shortness of Breath [facility] methylpredn isolone sod succ (SOLU-MEDRO L) injection 125 mg 09-17 11:00: 00 09-17 11:50 :26 No 125mg 125 mg, Intravenou s, Q6H, First dose on Sun09/17/22 at 0600, Until Discontinu ed, Routine [facility] cefTRIAXone (ROCEPHIN) 1,000 mg in NaCl 0.9% (NS) 100 mL MINI-BAG 09-17 09:00: 00 09-17 08:40 :00 No 1000mg 1,000 mg, IV Piggyback, ONCE, 1 dose, On Sun09/17/22 at 0400, Administer over 30 Minutes, 100 mL
Reas on for Anti-Infec tive: Empiric Therapy for Suspected Infection< br>Empiric Therapy Site: Respirator y
Durat ion of therapy: 72 hours [facility] azithromyci n (ZITHROMAX) 500 mg in NaCl 0.9% (NS) 250 mL VIAL-MATE IV piggyback 09-17 08:45: 00 09-17 09:44 :00 No 500mg 500 mg, IV Piggyback, ONCE, 1 dose, On Sun09/17/22 at 0345, Administer over 60 Minutes, 250 mL
Reas on for Anti-Infec tive: Empiric Therapy for Suspected Infection< br>Empiric Therapy Site: Respirator y
Durat ion of therapy: 72 hours [facility] ondansetron (ZOFRAN (PF)) injection 4 mg 09-17 08:39: 18 Yes 4mg 4 mg, Slow IV Push, Q6HPRN, Starting on Sun09/17/22 at 0339, Until Discontinu ed, Routine, Nausea and Vomiting (N/V) [facility] acetaminoph en (TYLENOL) tablet 650 mg 09-17 08:39: 09 Yes 650mg 650 mg, Oral, Q6HPRN, Starting on Sun09/17/22 at 033, Until Discontinu ed, Routine, Pain (scale 1-3) [facility] ipratropium -albuteroL (DUONEB) 0.5 mg-3 mg(2.5 mg base)/3 mL nebulizer solution 3 mL 09-17 08:30: 00 09-17 07:24 :00 No 3mL 3 mL, Inhalation , ONCE, 1 dose, On Sun09/17/22 at 0330, Routine [facility] magnesium sulfate in water 2 gram/50 mL (4 %) infusion 2 g 09-17 07:00: 00 09-17 06:41 :00 No 2g 2 g, IV Piggyback, Administer over 60 Minutes, ONCE, 1 dose, On Sun09/17/22 at 0200, Routine [facility] ipratropium -albuteroL 0.5 mg-3 mg(2.5 mg base)/3 mL nebulizer solution 09-12 00:00: 00 12-04 00:00 :00 No [id number] USE 1 VIAL IN NEBULIZER EVERY 4 HOURS NEEDED FOR WHEEZING OR SHORTNESS OF BREATH [facility] metoclopram linda HCl (REGLAN) injection 10 mg 08-21 01:15: 00 08-21 00:35 :00 No 10mg 10 mg, Slow IV Push, ONCE, 1 dose, On Sun08/20/22 at 2015, NAEEM [facility] levalbutero l (XOPENEX) nebulizer solution 1.25 mg 08-20 23:45: 00 08-20 22:56 :00 No 1.25mg 1.25 mg, Inhalation , ONCE, 1 dose, On Sun08/20/22 at 1845, Routine [facility] ipratropium (ATROVENT) 0.02 % nebulizer solution 0.5 mg 08-20 23:45: 00 08-20 22:56 :00 No .5mg 0.5 mg, Inhalation , ONCE, 1 dose, On Sun08/20/22 at 1845, Routine [facility] ondansetron (ZOFRAN (PF)) injection 4 mg 08-20 23:30: 00 08-20 23:30 :00 No 4mg 4 mg, Slow IV Push, ONCE, 1 dose, On Sun08/20/22 at 1830, NAEEM [facility] morpHINE (2 mg/mL) injection 2 mg 08-20 23:30: 00 08-20 23:30 :00 No 2mg 2 mg, Slow IV Push, ONCE, 1 dose, On Sun08/20/22 at 1830, STAT [facility] iopamidol (ISOVUE 370-500 mL) injection 100 mL 08-20 23:11: 00 08-20 23:14 :00 No [id number] 100mL 100 mL, Intravenou s, ONCE, 1 dose, On Sun08/20/22 at 1830, Routine [facility] maalox:diph enhydrAMINE :lidocaine 2 % viscous 1:1:1 (FIRST-MOUT HWASH BLM) oral suspension 15 mL 08-20 23:00: 00 08-20 22:51 :00 No 15mL 15 mL, Oral, ONCE, 1 dose, On Sun08/20/22 at 1800, Routine [facility] famotidine (PEPCID (PF)) injection 20 mg 08-20 23:00: 00 08-20 22:51 :00 No 20mg 20 mg, Slow IV Push, ONCE, 1 dose, On Sun08/20/22 at 1800, NAEEM [facility] metoclopram linda HCl 10 mg tablet 08-20 00:00: 00 10-15 00:00 :00 No [id number] 10mg Take 1 tablet by mouth every 6 (six) hours. [facility] ipratropium 0.02 % nebulizer solution 07-26 00:00: 10-17 00:00 :00 No [id number] .5mg Inhale 2.5 mL every 6 (six) hours as needed for Wheezing or Shortness of Breath. [facility] albuterol 90 mcg/actuati on inhaler 07-26 00:00: 00 09-12 00:00 :00 No [id number] 2{puff} Inhale 2 Puffs every 6 (six) hours as needed for Wheezing or Shortness of Breath. [facility] ipratropium -albuteroL 0.5 mg-3 mg(2.5 mg base)/3 mL nebulizer solution 06-30 00:00: 00 09-12 00:00 :00 No [id number] USE 3 ML IN NEBULIZER EVERY 4 HOURS NEEDED FOR WHEEZING OR SHORTNESS OF BREATH [facility] ipratropium -albuteroL (DUONEB) 0.5 mg-3 mg(2.5 mg base)/3 mL nebulizer solution 3 mL 05-29 11:00: 00 05-29 10:20 :00 No 3mL 3 mL, Inhalation , ONCE, 1 dose, On Sun05/29/22 at 0500, Routine [facility] ipratropium -albuteroL (DUONEB) 0.5 mg-3 mg(2.5 mg base)/3 mL nebulizer solution 3 mL 05-29 10:00: 00 05-29 09:24 :00 No 3mL 3 mL, Inhalation , ONCE, 1 dose, On Sun05/29/22 at 0400, Routine [facility] magnesium sulfate in water 2 gram/50 mL (4 %) infusion 2 g 05-29 10:00: 00 05-29 10:27 :00 No 2g 2 g, IV Piggyback, Administer over 60 Minutes, ONCE, 1 dose, On Sun05/29/22 at 0400, Routine [facility] methylPREDN ISolone sodium succinate (SOLU-MEDRO L) injection 125 mg 05-29 09:30: 00 05-29 09:27 :00 No 125mg 125 mg, Intravenou s, ONCE, 1 dose, On Sun05/29/22 at 0330, NAEEM [facility] predniSONE 50 mg tablet 05-29 00:00: 00 10-15 00:00 :00 No [id number] 50mg Take 1 tablet by mouth in the morning. [facility] Fluticasone -Salmeterol (ADVAIR DISKUS) 100-50 mcg/dose inhalation disk 05-23 00:00: 00 02-19 00:00 :00 No [id number] 1{puff} Inhale 1 Puff every 12 (twelve) hours. [facility] ipratropium -albuteroL 0.5 mg-3 mg(2.5 mg base)/3 mL nebulizer solution 05-23 00:00: 00 06-30 00:00 :00 No [id number] USE 3 ML IN NEBULIZER EVERY 4 HOURS NEEDED FOR WHEEZING OR SHORTNESS OF BREATH [facility] ipratropium -albuteroL 0.5 mg-3 mg(2.5 mg base)/3 mL nebulizer solution 05-22 00:00: 00 05-23 00:00 :00 No [id number] USE 3 ML IN NEBULIZER EVERY 4 HOURS NEEDED FOR WHEEZING OR SHORTNESS OF BREATH [facility] IPRATROPIUM -ALBUTEROL 0.5 mg-3 mg(2.5 mg base)/3 mL nebulizer solution 2021-04 00:00: 00 05-22 00:00 :00 No [id number] USE 3 ML IN NEBULIZER EVERY 4 HOURS NEEDED FOR WHEEZING OR SHORTNESS OF BREATH [facility] ipratropium -albuteroL 0.5 mg-3 mg(2.5 mg base)/3 mL nebulizer solution 01-20 00:00: 00 04-25 00:00 :00 No [id number] 3mL Inhale 3 mL every 4 (four) hours as needed for Wheezing or Shortness of Breath. [facility] ipratropium -albuteroL 0.5 mg-3 mg(2.5 mg base)/3 mL nebulizer solution 10-19 00:00: 00 Yes [id number] 3mL Inhale 3 mL every 4 (four) hours as needed for Wheezing or Shortness of Breath. [facility] fluticasone propion-mariela meteroL (ADVAIR DISKUS) 250-50 mcg/dose inhalation disk 4- 00:00: 00 Yes [id number] 1{puff} Inhale 1 Puff every 12 (twelve) hours. [facility] fluticasone propion-mariela meteroL (ADVAIR DISKUS) 250-50 mcg/dose inhalation disk 08-01 00:00: 00 05-23 00:00 :00 No [id number] 1{puff} Inhale 1 Puff every 12 (twelve) hours. [facility] pregabalin 25 mg capsule 07-27 00:00: 00 08-27 04:59 :00 No [id number] 9107 50mg Take 2 capsules by mouth 3 (three) times daily for 30 days. [facility] oxyCODONE-a cetaminophe n 5-325 mg per tablet 30 00:00: 00 08-04 04:59 :00 No [id number] 1{tbl} Take 1 tablet by mouth every 4 (four) hours as needed for Pain (scale 4-6) or Pain (scale 7-10) for up to 7 days. Indication s: acute pain [facility] ipratropium -albuteroL 0.5 mg-3 mg(2.5 mg base)/3 mL nebulizer solution 07-06 00:00: 00 10-19 00:00 :00 No [id number] 3mL Inhale 3 mL every 4 (four) hours as needed for Wheezing or Shortness of Breath. [facility] albuterol 90 mcg/actuati on inhaler 10-03 00:00: 00 09-18 00:00 :00 No [id number] 2{puff} Inhale 2 Puffs every 4 (four) hours as needed for Wheezing or Shortness of Breath. [facility] Immunizations Ordered Immunization Name Filled Immunization Name Date Status Comments Source Remdesivir 2023-10-14 00:00:00 Completed [facility] Remdesivir 2023-10-13 00:00:00 Completed [facility] Remdesivir Unknown Completed [facility] Remdes[facility] Unknown Completed [facility] Remdesivir Unknown Completed [facility] Remdes[facility] Unknown [facility]pleted [facility] Remdes[facility] Unknown Completed [facility] Remdes[facility] Unknown Completed [facility] Remdes[facility] Unknown Completed [facility] Remdesivir Unknown Completed [facility] Remdesivir Unknown Completed [facility] Unknown Completed [facility] Unknown Completed [facility] Unknown Completed [facility] Unknown Completed [facility] Unknown Completed [facility]des[facility] Unknown Completed [facility]des[facility] Unknown Completed [facility] Remdes[facility] Unknown Completed [facility] Remdes[facility] Unknown Completed [facility] Remdes[facility] Unknown Completed [facility] Remdes[facility] Unknown Completed [facility] Remdesivir Unknown Completed [facility] Remdesivir Unknown Completed [facility] Remdesivir Unknown Completed [facility] Remdesivir Unknown [facility]pleted [facility] Remdesivir Unknown [facility]pleted [facility] Remdesivir Unknown [facility]pleted [facility] Remdesivir Unknown Completed [facility] [place] [facility] Remdesivir Unknown Completed [facility] Remdesivir Unknown Completed [facility] Remdesivir Unknown Completed [facility] Remdesivir Unknown Completed [facility] Remdesivir Unknown Completed [facility] Remdesivir Unknown Completed [facility] Remdes[facility] Unknown Completed [facility] Remdes[facility] Unknown Completed [facility] Remdesivir Unknown Completed [facility] Remdesivir Unknown Completed [facility] Remdesivir Unknown Completed [facility] Remdesivir Unknown Completed [facility] Remdesivir Unknown Completed [facility] Remdesivir Unknown Completed [facility] Remdesivir Unknown Completed [facility] Remdesivir Unknown Completed [facility] Remdes[facility] Unknown Completed [facility] Remdesivir Unknown Completed [facility] Remdesivir Unknown Completed [facility] Remdesivir Unknown Completed [facility] Remdesivir Unknown Completed [facility] Remdesivir Unknown [facility]pleted [facility] Remdesivir Unknown Completed [facility] Remdesivir Unknown Completed [facility] [place] [place] [facility] Vital Signs Vital Name Observation Time Observation Value Comments S ource Heart rate 2024-07-27 16:26:00 106 /min [facility] Oxygen saturation in Arterial blood by Pulse oximetry 2024-07-27 16:26:00 92 /min [facility] Respiratory rate 2024-07-27 16:20:00 18 /min [facility] Systolic blood pressure 2024-07-27 15:00:00 107 mm[Hg] [facility] Diastolic blood pressure 2024-07-27 15:00:00 71 mm[Hg] [facility] Body temperature 2024-07-27 12:43:00 36.78 Thi [facility] Body weight 2024-07-27 08:33:00 [facility] 2024-07-27 08:33:00 18.24 kg/m2 [facility] Body height 2024-07-22 00:23:00 182.9 cm [facility] Systolic blood pressure 2024-06-13 16:35:00 100 mm[Hg] [facility] Diastolic blood pressure 2024-06-13 16:35:00 69 mm[Hg] [facility] Heart rate 2024-06-13 16:35:00 102 /min [facility] Body temperature 2024-06-13 16:35:00 36.72 Thi [facility] Respiratory rate 2024-06-13 16:35:00 22 /min [facility] Body height 2024-06-13 16:35:00 182.9 cm per pt [facility] Body weight 2024-06-13 16:35:00 63.504 kg per pt [facility] BMI 2024-06-13 16:35:00 18.99 kg/m2 [facility] Oxygen saturation in Arterial blood by Pulse oximetry 2024-06-13 16:35:00 95 /min pt is on 4L [facility] Heart rate 2024-03-04 21:36:00 86 /min [facility] Respiratory rate 2024-03-04 21:36:00 20 /min [facility] Oxygen saturation in Arterial blood by Pulse oximetry 2024-03-04 21:36:00 94 /min [facility] Systolic blood pressure 2024-03-04 17:12:00 119 mm[Hg] [facility] Diastolic blood pressure 2024-03-04 17:12:00 66 mm[Hg] [facility] Body temperature 2024-03-04 17:12:00 36.89 Thi [facility] Body weight 2024-03-04 09:37:00 63.957 [facility] BMI 2024-03-04 09:37:00 19.12 kg/m2 [facility] Body height 2024-03-01 17:08:00 182.9 cm [facility] Systolic blood pressure 2023-12-19 19:19:00 106 mm[Hg] [facility] Diastolic blood pressure 2023-12-19 19:19:00 68 mm[Hg] [facility] Heart rate 2023-12-19 19:19:00 112 /min [facility] Body temperature 2023-12-19 19:19:00 36.56 Thi [facility] Body height 2023-12-19 19:19:00 182.9 cm [facility] Body weight 2023-12-19 19:19:00 65.772 kg [facility] BMI 2023-12-19 19:19:00 19.67 kg/m2 [facility] Oxygen saturation in Arterial blood by Pulse oximetry 2023-12-19 19:19:00 92 /min [facility] Systolic blood pressure 2023-12-07 15:54:00 105 mm[Hg] [facility] Diastolic blood pressure 2023-12-07 15:54:00 71 mm[Hg] [facility] Body height 2023-12-07 15:54:00 182.9 cm [facility] Body weight 2023-12-07 15:54:00 65.772 kg [facility] BMI 2023-12-07 15:54:00 19.67 kg/m2 [facility] Oxygen saturation in Arterial blood by Pulse oximetry 2023-12-07 15:54:00 94 /min [facility] Systolic blood pressure 2023-12-03 16:38:00 101 mm[Hg] [facility] Diastolic blood pressure 2023-12-03 16:38:00 61 mm[Hg] [facility] Heart rate 2023-12-03 16:38:00 69 /min [facility] Body temperature 2023-12-03 16:38:00 36.78 Thi [facility] Respiratory rate 2023-12-03 16:38:00 16 /min [facility] Oxygen saturation in Arterial blood by Pulse oximetry 2023-12-03 16:38:00 99 /min [facility] Body weight 2023-12-02 13:00:00 65.998 [facility] BMI 2023-12-02 13:00:00 19.73 kg/m2 [facility] Body height 2023-12-01 21:42:00 182.9 cm [facility] Systolic blood pressure 2023-10-27 17:28:00 99 mm[Hg] [facility] Diastolic blood pressure 2023-10-27 17:28:00 58 mm[Hg] [facility] Heart rate 2023-10-27 17:28:00 72 /min [facility] Body temperature 2023-10-27 17:28:00 36.22 Thi [facility] Respiratory rate 2023-10-27 17:28:00 16 /min [facility] Oxygen saturation in Arterial blood by Pulse oximetry 2023-10-27 17:28:00 96 /min [facility] Body weight 2023-10-27 08:37:00 62.5 kg [facility] BMI 2023-10-27 08:37:00 18.69 kg/m2 [facility] Body height 2023-10-25 20:48:00 182.9 cm [facility] Systolic blood pressure 2023-10-14 17:08:00 105 mm[Hg] [facility] Diastolic blood pressure 2023-10-14 17:08:00 73 mm[Hg] [facility] Body temperature 2023-10-14 17:08:00 36.44 Thi [facility] Oxygen saturation in Arterial blood by Pulse oximetry 2023-10-14 17:08:00 98 /min [facility] Respiratory rate 2023-10-14 16:35:00 18 /min [facility] Heart rate 2023-10-14 12:51:00 80 /min [facility] Body weight 2023-10-14 09:18:00 67.495 kg [facility] BMI 2023-10-14 09:18:00 20.18 kg/m2 [facility] Body height 2023-10-13 03:32:00 182.9 cm [facility] Systolic blood pressure 2023-07-23 12:15:00 134 mm[Hg] [facility] Diastolic blood pressure 2023-07-23 12:15:00 65 mm[Hg] [facility] Heart rate 2023-07-23 12:15:00 108 /min [facility] Body temperature 2023-07-23 12:15:00 36.17 Thi [facility] Respiratory rate 2023-07-23 12:15:00 20 /min [facility] Body height 2023-07-23 12:15:00 182.9 cm [facility] Body weight 2023-07-23 12:15:00 62.4 kg [facility] BMI 2023-07-23 12:15:00 18.66 kg/m2 [facility] Oxygen saturation in Arterial blood by Pulse oximetry 2023-07-23 12:15:00 95 /min [facility] Systolic blood pressure 2023-07-19 17:54:00 108 mm[Hg] [facility] Diastolic blood pressure 2023-07-19 17:54:00 71 mm[Hg] [facility] Heart rate 2023-07-19 17:54:00 108 /min [facility] Respiratory rate 2023-07-19 17:54:00 20 /min [facility] Body height 2023-07-19 17:54:00 [facility]9 [facility] Body weight 2023-07-19 17:54:00 [facility]504 [facility] BMI 2023-07-19 17:54:00 18.99 kg/m2 [facility] Oxygen saturation in Arterial blood by Pulse oximetry 2023-07-19 17:54:00 98 /min [facility] Systolic blood pressure 2023-06-21 13:23:00 136 mm[Hg] [facility] Diastolic blood pressure 2023-06-21 13:23:00 86 mm[Hg] [facility] Heart rate 2023-06-21 13:23:00 98 /min [facility] Oxygen saturation in Arterial blood by Pulse oximetry 2023-06-21 13:23:00 92 /min [facility] Systolic blood pressure 2023-06-04 19:13:00 83 mm[Hg] [facility] Diastolic blood pressure 2023-06-04 19:13:00 63 mm[Hg] [facility] Heart rate 2023-06-04 19:12:00 101 /min [facility] Body temperature 2023-06-04 19:12:00 36.22 Thi [facility] Respiratory rate 2023-06-04 19:12:00 18 /min [facility] Body height 2023-06-04 19:12:00 182.9 cm [facility] Body weight 2023-06-04 19:12:00 61.689 kg [facility] BMI 2023-06-04 19:12:00 18.44 [facility]2 [facility] Oxygen saturation in Arterial blood by Pulse oximetry 2023-06-04 19:12:00 97 /min [facility] Systolic blood pressure 2023-05-31 21:01:00 119 mm[Hg] [facility] Diastolic blood pressure 2023-05-31 21:01:00 70 mm[Hg] [facility] Heart rate 2023-05-31 21:01:00 91 /min [facility] Body height 2023-05-31 21:01:00 177.8 cm [facility] Body weight 2023-05-31 21:01:00 61.689 kg [facility] BMI 2023-05-31 21:01:00 19.51 kg/m2 [facility] Oxygen saturation in Arterial blood by Pulse oximetry 2023-05-31 21:01:00 96 /min [facility] Systolic blood pressure 2023-05-28 17:05:00 98 mm[Hg] [facility] Diastolic blood pressure 2023-05-28 17:05:00 77 mm[Hg] [facility] Heart rate 2023-05-28 17:05:00 110 /min [facility] Body height 2023-05-28 17:05:00 177.8 cm [facility] Body weight 2023-05-28 17:05:00 62.596 kg [facility] BMI 2023-05-28 17:05:00 19.80 kg/m2 [facility] Oxygen saturation in Arterial blood by Pulse oximetry 2023-05-28 17:05:00 93 /min [facility] Heart rate 2023-05-18 17:38:00 102 /min [facility] Respiratory rate 2023-05-18 17:38:00 18 /min [facility] Oxygen saturation in Arterial blood by Pulse oximetry 2023-05-18 17:38:00 96 /min [facility] Systolic blood pressure 2023-05-18 14:55:00 97 mm[Hg] [facility] Diastolic blood pressure 2023-05-18 14:55:00 64 mm[Hg] [facility] Body temperature 2023-05-18 14:55:00 36.78 Thi [facility] Body weight 2023-05-18 09:40:00 68.493 [facility] BMI 2023-05-18 09:40:00 20.48 kg/m2 [facility] Body height 2023-05-11 09:09:00 182.9 cm [facility] Systolic blood pressure 2023-05-16 18:00:00 97 mm[Hg] [facility] Diastolic blood pressure 2023-05-16 18:00:00 57 mm[Hg] [facility] Heart rate 2023-05-16 18:00:00 93 /min [facility] Body temperature 2023-05-16 18:00:00 36.56 Thi [facility] Respiratory rate 2023-05-16 18:00:00 16 /min [facility] Oxygen saturation in Arterial blood by Pulse oximetry 2023-05-16 18:00:00 98 /min [facility] Body weight 2023-05-15 09:44:00 62.959 kg [facility] BMI 2023-05-15 09:44:00 20.78 kg/m2 [facility] Body height 2023-05-11 09:09:00 182.9 cm [facility] Systolic blood pressure 2023-05-10 12:00:00 121 mm[Hg] [facility] Diastolic blood pressure 2023-05-10 12:00:00 86 mm[Hg] [facility] Heart rate 2023-05-10 12:00:00 93 /min [facility] Respiratory rate 2023-05-10 12:00:00 18 /min [facility] Oxygen saturation in Arterial blood by Pulse oximetry 2023-05-10 12:00:00 97 /min [facility] Body temperature 2023-05-10 06:41:00 36.5 Thi [facility] Body height 2023-05-10 06:41:00 182.9 cm [facility] Body weight 2023-05-10 06:41:00 62.596 kg [facility] BMI 2023-05-10 06:41:00 18.72 kg/m2 [facility] Systolic blood pressure 2023-05-07 17:05:00 120 mm[Hg] [facility] Diastolic blood pressure 2023-05-07 17:05:00 78 mm[Hg] [facility] Heart rate 2023-05-07 17:05:00 106 /min [facility] Body height 2023-05-07 17:05:00 172.7 cm [facility] Body weight 2023-05-07 17:05:00 62.596 kg [facility] BMI 2023-05-07 17:05:00 20.98 kg/m2 [facility] Oxygen saturation in Arterial blood by Pulse oximetry 2023-05-07 17:05:00 92 /min [facility] Systolic blood pressure 2023-05-02 22:34:00 97 mm[Hg] [facility] Diastolic blood pressure 2023-05-02 22:34:00 67 mm[Hg] [facility] Body temperature 2023-05-02 22:00:00 37 Thi [facility] Heart rate 2023-05-02 18:00:00 82 /min [facility] Respiratory rate 2023-05-02 18:00:00 18 /min [facility] Oxygen saturation in Arterial blood by Pulse oximetry 2023-05-02 18:00:00 98 /min [facility] Body height 2023-05-01 23:01:00 182.9 cm [facility] Body weight 2023-05-01 23:01:00 62.596 kg [facility] BMI 2023-05-01 23:01:00 18.72 kg/m2 [facility] Respiratory rate 2023-04-23 21:43:00 18 /min [facility] Oxygen saturation in Arterial blood by Pulse oximetry 2023-04-23 21:43:00 99 /min [facility] Systolic blood pressure 2023-04-23 21:42:00 112 mm[Hg] [facility] Diastolic blood pressure 2023-04-23 21:42:00 70 mm[Hg] [facility] Heart rate 2023-04-23 21:42:00 87 /min [facility] Body temperature 2023-04-23 21:42:00 36.94 Thi [facility] Body weight 2023-04-23 10:07:00 61.961 kg [facility] BMI 2023-04-23 10:07:00 18.53 kg/m2 [facility] Body height 2023-04-19 12:22:00 182.9 cm [facility] Systolic blood pressure 2023-04-17 22:24:00 102 mm[Hg] [facility] Diastolic blood pressure 2023-04-17 22:24:00 65 mm[Hg] [facility] Heart rate 2023-04-17 22:24:00 100 /[facility] Body temperature 2023-04-17 22:24:00 36.17 Thi [facility] Respiratory rate 2023-04-17 22:24:00 16 /min [facility] Oxygen saturation in Arterial blood by Pulse oximetry 2023-04-17 22:24:00 96 /min [facility] Heart rate 2023-04-17 18:28:00 86 /min [facility] Respiratory rate 2023-04-17 18:28:00 18 /min [facility] Oxygen saturation in Arterial blood by Pulse oximetry 2023-04-17 18:28:00 98 /min [facility] Systolic blood pressure 2023-04-17 17:56:00 111 mm[Hg] [facility] Diastolic blood pressure 2023-04-17 17:56:00 63 mm[Hg] [facility] Body temperature 2023-04-17 17:56:00 36.78 Thi [facility] Body height 2023-04-13 12:06:00 182.9 cm [facility] Body weight 2023-04-13 12:06:00 62.596 kg [facility] BMI 2023-04-13 12:06:00 18.72 kg/m2 [facility] Systolic blood pressure 2023-04-09 18:07:00 107 mm[Hg] [facility] Diastolic blood pressure 2023-04-09 18:07:00 55 mm[Hg] [facility] Heart rate 2023-04-09 18:07:00 68 /min [facility] Body temperature 2023-04-09 18:07:00 36.61 Thi [facility] Respiratory rate 2023-04-09 18:07:00 20 /min [facility] Oxygen saturation in Arterial blood by Pulse oximetry 2023-04-09 18:07:00 97 /min [facility] Body height 2023-03-30 17:39:00 182.9 cm [facility] Body weight 2023-03-30 17:39:00 63 kg [facility] BMI 2023-03-30 17:39:00 18.84 kg/m2 [facility] Systolic blood pressure 2023-04-03 13:35:00 109 mm[Hg] [facility] Diastolic blood pressure 2023-04-03 13:35:00 84 mm[Hg] [facility] Heart rate 2023-04-03 13:35:00 75 /min [facility] Body temperature 2023-04-03 13:35:00 36.17 Thi [facility] Respiratory rate 2023-04-03 13:35:00 16 /min [facility] Oxygen saturation in Arterial blood by Pulse oximetry 2023-04-03 13:35:00 100 /min [facility] Body height 2023-03-30 17:39:00 182.9 cm [facility] Body weight 2023-03-30 17:39:00 63 kg [facility] BMI 2023-03-30 17:39:00 18.84 kg/m2 [facility] Systolic blood pressure 2023-03-29 19:00:00 110 mm[Hg] [facility] Diastolic blood pressure 2023-03-29 19:00:00 76 mm[Hg] [facility] Heart rate 2023-03-29 19:00:00 105 /min [facility] Body temperature 2023-03-29 19:00:00 37.06 Thi [facility] Respiratory rate 2023-03-29 19:00:00 18 /min [facility] Body height 2023-03-29 19:00:00 182.9 cm [facility] Body weight 2023-03-29 19:00:00 63.05 kg [facility] BMI 2023-03-29 19:00:00 18.85 kg/m2 [facility] Oxygen saturation in Arterial blood by Pulse oximetry 2023-03-29 19:00:00 93 /min [facility] Systolic blood pressure 2023-03-26 19:20:00 110 mm[Hg] [facility] Diastolic blood pressure 2023-03-26 19:20:00 68 mm[Hg] [facility] Heart rate 2023-03-26 19:20:00 106 /min [facility] Body temperature 2023-03-26 19:20:00 36.67 Thi [facility] Respiratory rate 2023-03-26 19:20:00 20 /min [facility] Body height 2023-03-26 19:20:00 182.9 cm [facility] Body weight 2023-03-26 19:20:00 62.823 kg [facility] BMI 2023-03-26 19:20:00 18.78 kg/m2 [facility] Oxygen saturation in Arterial blood by Pulse oximetry 2023-03-26 19:20:00 92 /min [facility] Systolic blood pressure 2023-03-20 14:25:00 116 mm[Hg] [facility] Diastolic blood pressure 2023-03-20 14:25:00 65 mm[Hg] [facility] Heart rate 2023-03-20 14:25:00 85 /min [facility] Body height 2023-03-20 14:25:00 182.9 cm [facility] Body weight 2023-03-20 14:25:00 63.141 kg [facility] BMI 2023-03-20 14:25:00 18.88 kg[facility]2 [facility] in Arterial blood by Pulse oximetry 2023-03-20 14:25:00 95 /min [facility] Body height 2023-03-07 20:32:00 182.9 cm [facility] Body weight 2023-03-07 20:32:00 63.186 kg [facility] BMI 2023-03-07 20:32:00 18.89 kg/m2 [facility] Body height 2023-02-22 19:20:00 182.9 cm [facility] Body weight 2023-02-22 19:20:00 64.774 kg [facility] BMI 2023-02-22 19:20:00 19.37 kg/m2 [facility] Systolic blood pressure 2023-02-21 13:09:00 109 mm[Hg] [facility] Diastolic blood pressure 2023-02-21 13:09:00 65 mm[Hg] [facility] Heart rate 2023-02-21 13:09:00 88 /min [facility] Body temperature 2023-02-21 13:09:00 36.56 Thi [facility] Respiratory rate 2023-02-21 13:09:00 18 /min [facility] Body height 2023-02-21 13:09:00 182.9 cm [facility] 2023-02-21 13:09:00 65.726 kg [facility] 2023-02-21 13:09:00 19.65 kg/m2 [facility] Oxygen saturation in Arterial blood by Pulse oximetry 2023-02-21 13:09:00 93 /min [facility] Systolic blood pressure 2023-02-19 22:01:00 113 mm[Hg] [facility] Diastolic blood pressure 2023-02-19 22:01:00 72 mm[Hg] [facility] Heart rate 2023-02-19 22:01:00 99 /min [facility] Body temperature 2023-02-19 22:01:00 36.33 Thi [facility] Respiratory rate 2023-02-19 22:01:00 17 /min [facility] Oxygen saturation in Arterial blood by Pulse oximetry 2023-02-19 22:01:00 92 /min [facility] Body height 2023-02-19 19:25:00 182.9 cm [facility] Body weight 2023-02-19 19:25:00 65.318 kg [facility] BMI 2023-02-19 19:25:00 19.53 kg/m2 [facility] Systolic blood pressure 2023-02-19 17:57:00 110 mm[Hg] [facility] Diastolic blood pressure 2023-02-19 17:57:00 74 mm[Hg] [facility] Heart rate 2023-02-19 17:57:00 96 /min [facility] 2023-02-19 17:57:00 20 /min [facility] Body height 2023-02-19 17:57:00 182.9 cm [facility] Body weight 2023-02-19 17:57:00 65.681 kg [facility] BMI 2023-02-19 17:57:00 19.64 kg/m2 [facility] Oxygen saturation in Arterial blood by Pulse oximetry 2023-02-19 17:57:00 93 /min [facility] Systolic blood pressure 2022-12-29 12:37:00 111 mm[Hg] [facility] Diastolic blood pressure 2022-12-29 12:37:00 73 mm[Hg] [facility] Heart rate 2022-12-29 12:37:00 70 /min [facility] Body temperature 2022-12-29 12:37:00 36.44 Thi [facility] Respiratory rate 2022-12-29 12:37:00 17 /min [facility] Oxygen saturation in Arterial blood by Pulse oximetry 2022-12-29 12:37:00 97 /min [facility] Body weight 2022-12-29 09:52:00 67.495 [facility] BMI 2022-12-29 09:52:00 20.18 kg/m2 [facility] Body height 2022-12-25 21:00:00 182.9 cm [facility] Heart rate 2022-11-29 04:15:00 89 /min [facility] Respiratory rate 2022-11-29 04:15:00 33 /min [facility] Oxygen saturation in Arterial blood by Pulse oximetry 2022-11-29 04:15:00 93 /min [facility] Systolic blood pressure 2022-11-29 03:12:00 121 mm[Hg] [facility] Diastolic blood pressure 2022-11-29 03:12:00 74 mm[Hg] [facility] Body temperature 2022-11-29 03:12:00 36.44 Thi [facility] Body height 2022-11-29 03:12:00 182.9 cm [facility] Body weight 2022-11-29 03:12:00 65.772 kg [facility] BMI 2022-11-29 03:12:00 19.67 kg/m2 [facility] Respiratory rate 2022-11-15 16:22:00 20 /min [facility] Oxygen saturation in Arterial blood by Pulse oximetry 2022-11-15 16:22:00 99 /min [facility] Systolic blood pressure 2022-11-15 16:03:00 97 mm[Hg] [facility] Diastolic blood pressure 2022-11-15 16:03:00 59 mm[Hg] [facility] Heart rate 2022-11-15 16:03:00 74 /min [facility] Body temperature 2022-11-15 16:03:00 36.78 Thi [facility] Body height 2022-11-13 08:19:00 182.9 cm [facility] Body weight 2022-11-13 08:19:00 67.495 [facility] BMI 2022-11-13 08:19:00 20.18 kg/m2 [facility] Systolic blood pressure 2022-10-24 16:03:00 97 mm[Hg] [facility] Diastolic blood pressure 2022-10-24 16:03:00 61 mm[Hg] [facility] Heart rate 2022-10-24 16:03:00 101 /min [facility] Body height 2022-10-24 16:03:00 182.9 cm [facility] Body weight 2022-10-24 16:03:00 66.452 [facility] BMI 2022-10-24 16:03:00 19.87 kg/m2 [facility] Oxygen saturation in Arterial blood by Pulse oximetry 2022-10-24 16:03:00 94 /min [facility] Respiratory rate 2022-10-23 18:58:00 16 /min [facility] Oxygen saturation in Arterial blood by Pulse oximetry 2022-10-23 18:58:00 93 /min [facility] Systolic blood pressure 2022-10-23 16:34:00 107 mm[Hg] [facility] Diastolic blood pressure 2022-10-23 16:34:00 67 mm[Hg] [facility] Heart rate 2022-10-23 16:34:00 80 /min [facility] Body temperature 2022-10-23 16:34:00 36.33 Thi [facility] Body weight 2022-10-23 09:04:00 65.499 kg [facility] BMI 2022-10-23 09:04:00 19.58 kg/m2 [facility] Body height 2022-10-22 19:16:00 182.9 cm [facility] Systolic blood pressure 2022-10-17 19:15:00 111 mm[Hg] [facility] Diastolic blood pressure 2022-10-17 19:15:00 70 mm[Hg] [facility] Heart rate 2022-10-17 19:15:00 89 /min [facility] Body temperature 2022-10-17 19:15:00 36.56 Thi [facility] Respiratory rate 2022-10-17 19:15:00 18 /min [facility] Oxygen saturation in Arterial blood by Pulse oximetry 2022-10-17 19:15:00 90 /min [facility] Body weight 2022-10-17 08:34:00 65 [facility] BMI 2022-10-17 08:34:00 19.43 kg/m2 [facility] Body height 2022-10-15 14:06:00 182.9 cm [facility] Systolic blood pressure 2022-10-02 16:00:00 92 mm[Hg] [facility] Diastolic blood pressure 2022-10-02 16:00:00 62 mm[Hg] [facility] Heart rate 2022-10-02 16:00:00 80 /min [facility] Respiratory rate 2022-10-02 16:00:00 18 /min [facility] Oxygen saturation in Arterial blood by Pulse oximetry 2022-10-02 16:00:00 92 /min [facility] Body temperature 2022-10-02 12:53:00 36.61 Thi [facility] Body weight 2022-10-02 12:53:00 64.864 kg [facility] BMI 2022-10-02 12:53:00 19.39 kg/m2 [facility] Respiratory rate 2022-09-18 13:11:00 18 /min [facility] Oxygen saturation in Arterial blood by Pulse oximetry 2022-09-18 13:11:00 93 /min [facility] Systolic blood pressure 2022-09-18 12:24:00 107 mm[Hg] [facility] Diastolic blood pressure 2022-09-18 12:24:00 69 mm[Hg] [facility] Heart rate 2022-09-18 12:24:00 84 /min [facility] Body temperature 2022-09-18 12:24:00 35.94 Thi [facility] Body weight 2022-09-18 08:34:00 65 kg [facility] BMI 2022-09-18 08:34:00 19.43 kg/m2 [facility] Body height 2022-09-17 10:09:00 182.9 [facility] Systolic blood pressure 2022-08-21 00:00:00 111 mm[Hg] [facility] Diastolic blood pressure 2022-08-21 00:00:00 70 mm[Hg] [facility] Heart rate 2022-08-21 00:00:00 90 /min [facility] Oxygen saturation in Arterial blood by Pulse oximetry 2022-08-21 00:00:00 97 /min [facility] Respiratory rate 2022-08-20 23:30:00 18 /min [facility] Body temperature 2022-08-20 22:33:00 36.61 Thi [facility] Body height 2022-08-20 22:33:00 182.9 cm [facility] Body weight 2022-08-20 22:33:00 68.04 kg [facility] BMI 2022-08-20 22:33:00 20.34 kg/m2 [facility] Systolic blood pressure 2022-05-29 11:00:00 95 mm[Hg] [facility] Diastolic blood pressure 2022-05-29 11:00:00 80 mm[Hg] [facility] Heart rate 2022-05-29 11:00:00 101 /min [facility] Respiratory rate 2022-05-29 11:00:00 17 /min [facility] Oxygen saturation in Arterial blood by Pulse oximetry 2022-05-29 11:00:00 93 /min [facility] Body temperature 2022-05-29 09:14:00 36.11 Thi [facility] Body height 2022-05-29 09:14:00 182.9 cm [facility] 2022-05-29 09:14:00 65.772 kg [facility] BMI 2022-05-29 09:14:00 19.67 kg/m2 [facility] Systolic blood pressure 2022-05-23 19:08:00 107 mm[Hg] [facility] Diastolic blood pressure 2022-05-23 19:08:00 68 mm[Hg] [facility] Heart rate 2022-05-23 19:08:00 100 /min [facility] Body temperature 2022-05-23 19:08:00 36.67 Thi [facility] Body height 2022-05-23 19:08:00 182.9 cm [facility] Body weight 2022-05-23 19:08:00 67.586 kg [facility] BMI 2022-05-23 19:08:00 20.21 kg/m2 [facility] Oxygen saturation in Arterial blood by Pulse oximetry 2022-05-23 19:08:00 91 /min [facility] Systolic blood pressure 2021-08-01 16:04:00 100 mm[Hg] [facility] Diastolic blood pressure 2021-08-01 16:04:00 64 mm[Hg] [facility] Heart rate 2021-08-01 16:04:00 90 /min [facility] 2021-08-01 16:04:00 182.9 cm [facility] Body weight 2021-08-01 16:04:00 59.603 kg [facility] BMI 2021-08-01 16:04:00 17.82 kg[facility]m2 [facility] in Arterial blood by Pulse oximetry 2021-08-01 16:04:00 97 /min [facility] Procedures Procedure Date / Time Performed Performing Clinician Source BASIC METABOLIC PANEL (NA, K, CL, CO2, GLUCOSE, BUN, CREATININE, CA) 2024-07-27 08:42:00 [facility]FF 2024-07-27 08:42:00 Cassy [facility] C-REACTIVE PROTEIN 2024-07-25 09:34:00 Cassy [facility] BASIC METABOLIC PANEL (NA, K, CL, CO2, GLUCOSE, BUN, CREATININE, CA) 2024-07-25 09:34:00 [facility] WITH DIFF 2024-07-25 09:34:00 Cassy [facility] PROCALCITONIN 2024-07-25 09:34:00 Cassy [facility] MAGNESIUM 2024-07-24 08:01:00 Florian Nguyen [facility] BASIC METABOLIC PANEL (NA, K, CL, CO2, GLUCOSE, BUN, CREATININE, CA) 2024-07-24 08:01:00 Florian Nguyen [facility] CBC WITH DIFF 2024-07-24 08:01:00 Florian Nguyen [facility] MAGNESIUM 2024-07-23 07:52:00 Florian Nguyen [facility] BASIC METABOLIC PANEL (NA, K, CL, CO2, GLUCOSE, BUN, CREATININE, CA) 2024-07-23 07:52:00 Florian Nguyen [facility] CBC WITH DIFF 2024-07-23 07:52:00 Florian Nguyen [facility] MRSA / MSSA SCREEN BY PCR, FELIBERTO 2024-07-22 22:14:00 Florian Nguyen [facility] HB ECG ROUTINE & RHYTHM STRIP 2024-07-21 22:39:44 Ced Guy [facility] INFLUENZA A/B RSV COVID NAAT 2024-07-21 22:05:00 Ced Guy [facility] LAB ONLY COVID INTERPRETATION 2024-07-21 22:05:00 Ced Guy [facility] XR CHEST 1 VW 2024-07-21 21:25:00 [facility] 2024-07-21 21:04:00 Ced Guy [facility] BLOOD CULTURE SCREEN 2024-07-21 20:54:00 Sumit Guy am [facility] BLOOD CULTURE SCREEN 2024-07-21 20:39:00 Sumit Guy am A [facility] AC ABG + LACTIC ACID 2024-07-21 20:37:00 Sumit Guy am A [facility] TROPONIN I 2024-07-21 20:28:00 Ced Guy Uni [facility] COMP. METABOLIC PANEL (76368) 2024-07-21 20:28:00 Ced Guy [facility] CBC WITH DIFF 2024-07-21 20:28:00 Ced Guy Un [facility] N-TERMINAL PRO-BNP 2024-07-21 20:28:00 Ced Guy [facility] BASIC METABOLIC PANEL (NA, K, CL, CO2, GLUCOSE, BUN, CREATININE, CA) 2024-03-04 10:47:00 Lupe Brannon [facility] CBC WITH DIFF 2024-03-04 10:47:00 Lupe Brannon [facility] CT THORAX W CONTRAST 2024-03-03 23:25:39 Lupe Brannon [facility] CBC WITH DIFF 2024-03-03 16:17:00 Florian Nguyen [facility] BASIC METABOLIC PANEL (NA, K, CL, CO2, GLUCOSE, BUN, CREATININE, CA) 2024-03-03 09:54:00 Lupe Brannon [facility] CBC WITH DIFF 2024-03-03 09:54:00 Lupe Brannon [facility] BASIC METABOLIC PANEL (NA, K, CL, CO2, GLUCOSE, BUN, CREATININE, CA) 2024-03-02 09:14:00 Kedar Madera [facility] CBC WITH DIFF 2024-03-02 09:14:00 Kedar Madera [facility] C-REACTIVE PROTEIN 2024-03-01 20:18:00 Kedar Madera [facility] PROCALCITONIN 2024-03-01 20:18:00 Kedar Madera [facility] XR CHEST 1 VW 2024-03-01 12:57:51 Polo Llanes [facility] VBG+VCOOX+NA+K+GLU+CA2+ 2024-03-01 12:32:00 Chiki Llanes [facility] INFLUENZA A/B RSV COVID NAAT 2024-03-01 12:32:00 Polo Llanes [facility] HB ECG ROUTINE & RHYTHM STRIP 2024-03-01 12:31:21 Polo Llanes [facility] TROPONIN I 2024-03-01 12:31:00 Polo Llanes [facility] COMP. METABOLIC PANEL ([id number]) 2024-03-01 12:31:00 Polo Llanes [facility] CBC WITH DIFF 2024-03-01 12:31:00 Polo Llanes [facility] N-TERMINAL PRO-BNP 2024-03-01 12:31:00 Polo Llanes [facility] MAGNESIUM 2023-12-03 09:31:00 Horacio Hamilton [facility] BASIC METABOLIC PANEL (NA, K, CL, CO2, GLUCOSE, BUN, CREATININE, CA) 2023-12-03 09:31:00 Horacio Hamilton [facility] CBC WITH DIFF 2023-12-03 09:31:00 Horacio Hamilton [facility] XR CHEST 1 VW 2023-12-01 16:30:27 Ajay Alvarez [facility] MAGNESIUM 2023-12-01 16:17:00 Ajay Alvarez [facility] TROPONIN I 2023-12-01 16:17:00 Ajay Alvarez [facility] COMP. METABOLIC PANEL ([id number]) 2023-12-01 16:17:00 Ajay Alvarez [facility] CBC WITH DIFF 2023-12-01 16:17:00 Ajay Alvarez [facility] INFLUENZA A/B RSV COVID NAAT 2023-12-01 16:17:00 Ajay Alvarez [facility] N-TERMINAL PRO-BNP 2023-12-01 16:17:00 Ajay Alvarez [facility] POCT GLUCOSE (AUTOMATED) 2023-10-27 17:29:00 Mónica Davenport [facility] EXTRA TUBE SST 2023-10-27 08:39:00 Dos[facility]do [facility] MAGNESIUM 2023-10-27 08:36:00 [facility]OL[facility] PANEL (NA, K, CL, CO2, GLUCOSE, BUN, CREATININE, CA) 2023-10-27 08:36:00 Lazara Morejon [facility] CBC WITH DIFF 2023-10-27 08:36:00 Lazara Morejon U [facility] INFLUENZA A/B RSV COVID NAAT 2023-10-26 18:05:[address] [facility] SPUTUM CULTURE 2023-10-26 18:04:00 Ethel [facility] POCT GLUCOSE (AUTOMATED) 2023-10-26 13:39:00 Mónica Davenport [facility] PROTHROMBIN TIME / INR 2023-10-26 09:27:00 Anthony Nichole [facility] EXTRA TUBE LAV 2023-10-26 09:27:00 Walter HdezMarcial [facility] PROCALCITONIN 2023-10-26 09:27:00 Brennon Nichole [facility] TROPONIN I 2023-10-26 01:17:00 Deonna [facility] BASIC METABOLIC PANEL (NA, K, CL, CO2, GLUCOSE, BUN, CREATININE, CA) 2023-10-26 01:17:00 Deonna [facility] LIPID PANEL ([id number])(TOTAL CHOLESTEROL, TRIGLYCERIDES, HDL) 2023-10-26 01:17:00 Brennon Nichole [facility] CBC WITH DIFF 2023-10-26 01:17:00 Julieta Ying [facility] GLYCOSYLATED HEMOGLOBIN (A1C) 2023-10-26 01:17:00 [facility] ABG+COOX+NA+K+GLU+CA2+ 2023-10-26 01:17:00 Nelda Ying [facility] N-TERMINAL PRO-BNP 2023-10-26 01:17:00 Daniel Ying [facility] XR CHEST 1 VW 2023-10-25 22:08:27 Julieta Ying [facility] BASIC METABOLIC PANEL (NA, K, CL, CO2, GLUCOSE, BUN, CREATININE, CA) 2023-10-14 08:57:00 Elsa [facility] CBC WITH DIFF 2023-10-14 08:57:00 [facility] XR CHEST 1 VW 2023-10-13 03:55:00 Nakul Ortiz [facility] INFLUENZA A/B RSV COVID NAAT 2023-10-13 03:44:00 Mckenzie [facility] LACTIC ACID WHOLE BLOOD 2023-10-13 03:44:00 Mónica Ortiz [facility] LAB ONLY COVID INTERPRETATION 2023-10-13 03:44:00 Mckenzie [facility] TROPONIN I 2023-10-13 03:43:00 [facility]ul [facility] BASIC METABOLIC PANEL (NA, K, CL, CO2, GLUCOSE, BUN, CREATININE, CA) 2023-10-13 03:43:00 Nakul Ortiz [facility] CBC WITH DIFF 2023-10-13 03:43:00 Nakul Ortiz [facility] N-TERMINAL PRO-BNP 2023-10-13 03:43:00 Tai Ortiz [facility] HB ECG ROUTINE & RHYTHM STRIP 2023-10-13 03:34:21 Mckenzie [facility] RADIOLOGY DOCUMENTATION 2023-08-13 20:24:37 Doct or Unassigned, [place] [facility] FL TIME OR (NON-REPORTABLE) 2023-07-23 17:40:00 Anne Gilbert [facility] ARTERIOGRAM 2023-07-23 15:27:00 [facility]-23 15:27:00 Anne, Gilbert [facility] ARTERIOGRAM 2023-07-23 15:27:00 Anne, Gilbert [facility] ARTERIOGRAM 2023-07-23 15:27:00 Anne, Gilbert [facility] ARTERIOGRAM 2023-07-23 15:27:00 Anne, Gilbert [facility] ARTERIOGRAM 2023-07-23 15:27:00 Anne, [facility] ARTERIOGRAM 2023-07-23 15:27:00 Anne, Gilbert [facility] ARTERIOGRAM 2023-07-23 15:27:00 Anne, Gilbert [facility] ARTERIOGRAM 2023-07-23 15:27:00 Anne, Gilbert [facility] ANGIOPLASTY 2023-07-23 15:27:00 [facility] V[facility] 2023-07-23 15:27:00 Anne, [facility] CONSENT/REFUSAL FOR DIAGNOSIS AND TREATMENT 2023-07-23 12:01:22 Doctor Unassigned, [place] [facility] ASSIGNMENT OF BENEFITS 2023-07-23 11:56:47 Docto r Unassigned, [place] [facility] HEPATIC FUNCTION PANEL ([id number]) (ALB,T.PRO,BILI T,BU/BC,ALT,AST,ALK PHOS) 2023-06-04 19:57:00 Sabrina Villareal [facility] PROTHROMBIN TIME / INR 2023-06-04 19:57:00 Erik Schmitz [facility] ASSIGNMENT OF BENEFITS 2023-05-28 16:50:16 Docto r Unassigned, [place] [facility] MAGNESIUM 2023-05-18 09:46:00 [facility]OL[facility] PANEL (NA, K, CL, CO2, GLUCOSE, BUN, CREATININE, CA) 2023-05-18 09:46:00 [facility] 2023-05-18 09:46:00 Alfonso [facility] BILI UNCONJUGATED/BILI CONJUG 2023-05-17 11:09:00 Villareal, [facility] COMP. METABOLIC PANEL ([id number]) 2023-05-17 11:09:00 Villareal, [facility] CBC WITH DIFF 2023-05-17 11:09:00 Villareal, [facility] BILI UNCONJUGATED/BILI CONJUG 2023-05-17 11:09:00 Villareal, [facility] COMP. METABOLIC PANEL ([id number]) 2023-05-17 11:09:00 Villareal, [facility] CBC WITH DIFF 2023-05-17 11:09:00 Villareal, [facility] CHOLECYSTECTOMY LAPAROSCOPY WITH CHOLANGIOGRAM 2023-05-16 14:58:00 Villareal, [facility] CHOLECYSTECTOMY LAPAROSCOPY WITH CHOLANGIOGRAM 2023-05-16 14:58:00 Villareal, [facility] PHOSPHORUS 2023-05-16 14:15:00 Davina [facility] MAGNESIUM 2023-05-16 14:15:00 Davina [facility] HEPATIC FUNCTION PANEL ([id number]) (ALB,T.PRO,BILI T,BU/BC,ALT,AST,ALK PHOS) 2023-05-16 14:15:00 Davina [facility] BASIC METABOLIC PANEL (NA, K, CL, CO2, GLUCOSE, BUN, CREATININE, CA) 2023-05-16 14:15:00 Davina [facility] CBC WITH DIFF 2023-05-16 14:15:[address] [facility] PHOSPHORUS 2023-05-16 14:15:00 Davina [facility] MAGNESIUM 2023-05-16 14:15:00 Davina [facility] HEPATIC FUNCTION PANEL ([id number]) (ALB,T.PRO,BILI T,BU/BC,ALT,AST,ALK PHOS) 2023-05-16 14:15:00 Davina [facility] BASIC METABOLIC PANEL (NA, K, CL, CO2, GLUCOSE, BUN, CREATININE, CA) 2023-05-16 14:15:00 Davina [facility] CBC WITH DIFF 2023-05-16 14:15:00 Silvina Ghosh [facility] HEPATIC FUNCTION PANEL ([id number]) (ALB,T.PRO,BILI T,BU/BC,ALT,AST,ALK PHOS) 2023-05-15 09:35:00 Kendall [facility] BASIC METABOLIC PANEL (NA, K, CL, CO2, GLUCOSE, BUN, CREATININE, CA) 2023-05-15 09:35:00 Dimitri Lupe [facility] CBC WITH DIFF 2023-05-15 09:35:00 Dimitri [facility] HEPATIC FUNCTION PANEL ([id number]) (ALB,T.PRO,BILI T,BU/BC,ALT,AST,ALK PHOS) 2023-05-15 09:35:00 [facility]OLIC PANEL (NA, K, CL, CO2, GLUCOSE, BUN, CREATININE, CA) 2023-05-15 09:35:00 Dimitri Lpue [facility] CBC WITH DIFF 2023-05-15 09:35:00 Dimitri Lupe [facility] HEPATIC FUNCTION PANEL ([id number]) (ALB,T.PRO,BILI T,BU/BC,ALT,AST,ALK PHOS) 2023-05-14 09:37:00 Cassy [facility] BASIC METABOLIC PANEL (NA, K, CL, CO2, GLUCOSE, BUN, CREATININE, CA) 2023-05-14 09:37:00 Cassy [facility] CBC WITH DIFF 2023-05-14 09:37:00 [facility] 2023-05-14 09:37:00 Oville, [facility] HEPATIC FUNCTION PANEL ([id number]) (ALB,T.PRO,BILI T,BU/BC,ALT,AST,ALK PHOS) 2023-05-14 09:37:00 Cassy [facility] BASIC METABOLIC PANEL (NA, K, CL, CO2, GLUCOSE, BUN, CREATININE, CA) 2023-05-14 09:37:00 Cassy [facility] CBC WITH DIFF 2023-05-14 09:37:00 Cassy [facility] PROTHROMBIN TIME / INR 2023-05-14 09:37:00 Cassy [facility] HEPATIC FUNCTION PANEL ([id number]) (ALB,T.PRO,BILI T,BU/BC,ALT,AST,ALK PHOS) 2023-05-13 09:49:00 Cassy [facility] BASIC METABOLIC PANEL (NA, K, CL, CO2, GLUCOSE, BUN, CREATININE, CA) 2023-05-13 09:49:00 Katiana Miller [facility] CBC WITH DIFF 2023-05-13 09:49:00 Katiana Miller [facility] PROTHROMBIN TIME / INR 2023-05-13 09:49:00 Cassy [facility] HEPATIC FUNCTION PANEL ([id number]) (ALB,T.PRO,BILI T,BU/BC,ALT,AST,ALK PHOS) 2023-05-13 09:49:00 Cassy [facility] BASIC METABOLIC PANEL (NA, K, CL, CO2, GLUCOSE, BUN, CREATININE, CA) 2023-05-13 09:49:00 Katiana Miller [facility] CBC WITH DIFF 2023-05-13 09:49:00 Katiana Miller [facility] PROTHROMBIN TIME / INR 2023-05-13 09:49:00 Cassy [facility] PROTHROMBIN TIME / INR 2023-05-12 19:10:00 Me mirlande Hunter [facility] PROTHROMBIN TIME / INR 2023-05-12 19:10:00 Elsa [facility] LIPASE 2023-05-12 09:39:00 Cassy [facility] HEPATIC FUNCTION PANEL ([id number]) (ALB,T.PRO,BILI T,BU/BC,ALT,AST,ALK PHOS) 2023-05-12 09:39:00 Cassy [facility] BASIC METABOLIC PANEL (NA, K, CL, CO2, GLUCOSE, BUN, CREATININE, CA) 2023-05-12 09:39:00 Cassy [facility] LIPID PANEL ([id number])(TOTAL CHOLESTEROL, TRIGLYCERIDES, HDL) 2023-05-12 09:39:00 Cassy [facility] CBC WITH DIFF 2023-05-12 09:39:00 Cassy [facility] COVID-19 (ID NOW RAPID TESTING) 2023-05-12 09:39[facility] 2023-05-12 09:39:00 Edcarlos [facility] LIPASE 2023-05-12 09:39:00 Cassy [facility] HEPATIC FUNCTION PANEL ([id number]) (ALB,T.PRO,BILI T,BU/BC,ALT,AST,ALK PHOS) 2023-05-12 09:39:00 Cassy [facility] BASIC METABOLIC PANEL (NA, K, CL, CO2, GLUCOSE, BUN, CREATININE, CA) 2023-05-12 09:39:00 Cassy [facility] LIPID PANEL ([id number])(TOTAL CHOLESTEROL, TRIGLYCERIDES, HDL) 2023-05-12 09:39:00 Cassy [facility] CBC WITH DIFF 2023-05-12 09:39:00 Cassy [facility] COVID-19 (ID NOW RAPID TESTING) 2023-05-12 09:39:00 [facility] COVID INTERPRETATION 2023-05-12 09:39:00 Edionwe, [facility] PROTHROMBIN TIME / INR 2023-05-11 21:03:00 Dionna Paco vinson [facility] PROTHROMBIN TIME / INR 2023-05-11 21:03:00 Paco Villareal [facility] US GALL BLADDER 2023-05-11 15:15:18 Elsie Ramos [facility] US GALL BLADDER 2023-05-11 15:15:18 Elsie Ramos [facility] BLOOD CULTURE SCREEN 2023-05-11 14:53:00 Shavonne Ramos [facility] BLOOD CULTURE SCREEN 2023-05-11 14:53:00 Shavonne Ramos [facility] CT ABDOMEN PELVIS W CONTRAST 2023-05-11 12:31:24 Judie Garcia [facility] CT ABDOMEN PELVIS W CONTRAST 2023-05-11 12:31:24 Judie Garcia [facility] ACUTE CARE ARTERIAL BLOOD GAS 2023-05-11 10:06:00 Judie Garcia [facility] ACUTE CARE ARTERIAL BLOOD GAS 2023-05-11 10:06:00 Judie Garcia [facility] LIPASE 2023-05-11 10:01:00 Judie Garcia [facility] TROPONIN I 2023-05-11 10:01:00 Judie Garcia [facility] COMP. METABOLIC PANEL ([id number]) 2023-05-11 10:01:00 Judie Garcia [facility] CBC WITH DIFF 2023-05-11 10:01:00 Judie Garcia [facility] GLYCOSYLATED HEMOGLOBIN (A1C) 2023-05-11 10:01:00 Kedar Madera [facility] LIPASE 2023-05-11 10:01:00 Judie Garcia [facility] TROPONIN I 2023-05-11 10:01:00 Judie Garcia [facility] COMP. METABOLIC PANEL ([id number]) 2023-05-11 10:01:00 Judie Garcia [facility] CBC WITH DIFF 2023-05-11 10:01:00 Judie Garcia [facility] GLYCOSYLATED HEMOGLOBIN (A1C) 2023-05-11 10:01:00 Kedar Madera [facility] CRITICAL CARE 2023-05-10 11:39:27 [facility] XR CHEST 1 VW 2023-05-10 06:58:54 [facility] TROPONIN I 2023-05-10 06:52:00 Elsie Ramos [facility] COMP. METABOLIC PANEL ([id number]) 2023-05-10 06:52:00 [facility] 2023-05-10 06:52:00 [facility] N-TERMINAL PRO-BNP 2023-05-10 06:52:00 Richard [facility] PROTHROMBIN TIME / INR 2023-05-03 17:44:00 Erik Schmitz [facility] XR FOOT 3+ VW RIGHT 2023-05-02 19:28:53 Abel Garcia [facility] PROTHROMBIN TIME / INR 2023-05-02 16:38:00 Magali Sanchez [facility] POLLY AURIS SURVEILLANCE BY PCR (INFECTION CONTROL PURPOSES) 2023-05-02 11:33:00 Vincenzo Portillo [facility] PHOSPHORUS 2023-05-02 11:31:00 Vincenzo Portillo Uni [facility] MAGNESIUM 2023-05-02 11:31:00 Vincenzo Portillo [facility] BASIC METABOLIC PANEL (NA, K, CL, CO2, GLUCOSE, BUN, CREATININE, CA) 2023-05-02 11:31:00 Vincenzo Portillo [facility] CBC WITH DIFF 2023-05-02 11:31:00 [facility]23-05-02 11:31:00 [facility] ROUTINE & RHYTHM STRIP 2023-05-02 00:46:42 Ced Guy [facility] CT CHEST PULMONARY ANGIOGRAM 2023-05-01 23:51:00 Ced Guy [facility] XR CHEST 1 VW 2023-05-01 23:47:00 Ced Guy Un [facility] AC PANEL 21 + LACTIC ACID 2023-05-01 23:38:00 Ced Guy [facility] TROPONIN I 2023-05-01 23:26:00 Ced Guy Uni [facility] COMP. METABOLIC PANEL ([id number]) 2023-05-01 23:26:00 Ced Guy [facility] CBC WITH DIFF 2023-05-01 23:26:00 Ced Guy Un [facility] RAPID INFLUENZA A/B 2023-05-01 23:26:00 Shama Guy [facility] N-TERMINAL PRO-BNP 2023-05-01 23:26:00 Ced Guy [facility] COVID-19 (ID NOW RAPID TESTING) 2023-05-01 23:26:00 Ced Guy [facility] LAB ONLY COVID INTERPRETATION 2023-05-01 23:26:00 Ced Guy [facility] CONSENT/REFUSAL FOR DIAGNOSIS AND TREATMENT 2023-05-01 22:57:49 Doctor Unassigned, [place] [facility] EXTERNAL PROVIDER - ADC CARDIOLOGY 2023-04-26 06:01:00 Doctor Unassigned, [place] [facility] MAGNESIUM 2023-04-23 12:10:00 Horacio Hamilton [facility] BASIC METABOLIC PANEL (NA, K, CL, CO2, GLUCOSE, BUN, CREATININE, CA) 2023-04-23 12:10:00 Horacio Hamilton [facility] CBC WITH DIFF 2023-04-23 12:10:00 Horacio Hamilton [facility] PROTHROMBIN TIME / INR 2023-04-23 12:10:00 Magali Sanchez [facility] BASIC METABOLIC PANEL (NA, K, CL, CO2, GLUCOSE, BUN, CREATININE, CA) 2023-04-22 10:19:00 Colleen Hamilton [facility] CBC WITHOUT DIFF 2023-04-22 10:19:00 Colleen Hamilton [facility] PROTHROMBIN TIME / INR 2023-04-22 10:19:00 Magali Sanchez [facility] PROTHROMBIN TIME / INR 2023-04-21 09:40:00 Magali Sanchez [facility] MAGNESIUM 2023-04-20 10:04:00 Vincenzo Portillo [facility] TROPONIN I 2023-04-20 10:04:00 Vincenzo Portillo [facility] HEPATIC FUNCTION PANEL ([id number]) (ALB,T.PRO,BILI T,BU/BC,ALT,AST,ALK PHOS) 2023-04-20 10:04:00 Kedar Madera [facility] BASIC METABOLIC PANEL (NA, K, CL, CO2, GLUCOSE, BUN, CREATININE, CA) 2023-04-20 10:04:00 Vincenzo Portillo [facility] CBC WITH DIFF 2023-04-20 10:04:00 [facility] / INR 2023-04-20 10:04:00 Magali Sanchez [facility] N-TERMINAL PRO-BNP 2023-04-20 10:04:00 Vincenzo Portillo [facility] XR CHEST 1 VW 2023-04-19 10:16:22 Andie Jose [facility] HB ECG ROUTINE & RHYTHM STRIP 2023-04-19 09:58:15 Andie Jose [facility] PHOSPHORUS 2023-04-19 09:35:00 Andie Jose Un [facility] COMP. METABOLIC PANEL ([id number]) 2023-04-19 09:35:00 Andie Jose [facility] CBC WITH DIFF 2023-04-19 09:35:00 Andie Jose U [facility] PROTHROMBIN TIME / INR 2023-04-19 09:35:00 Kalina Jose [facility] N-TERMINAL PRO-BNP 2023-04-19 09:35:00 Kedar Madera [facility] MAGNESIUM 2023-04-17 11:27:00 Omkar Oakes [facility] BASIC METABOLIC PANEL (NA, K, CL, CO2, GLUCOSE, BUN, CREATININE, CA) 2023-04-17 11:27:00 Omkar Oakes [facility] PROTHROMBIN TIME / INR 2023-04-17 11:27:00 Param Garcia [facility] EXTRA TUBE LAV 2023-04-17 11:27:00 Abigail Garcia [facility] MAGNESIUM 2023-04-16 11:06:00 Caterina [facility] BASIC METABOLIC PANEL (NA, K, CL, CO2, GLUCOSE, BUN, CREATININE, CA) 2023-04-16 11:06:00 [facility] 2023-04-16 11:06:00 [facility] PROTHROMBIN TIME / INR 2023-04-16 11:06:00 Param Garcia [facility] PROTHROMBIN TIME / INR 2023-04-15 23:21:00 Yuriy Oakes [facility] MAGNESIUM 2023-04-15 10:38:00 Solomon [facility] BASIC METABOLIC PANEL (NA, K, CL, CO2, GLUCOSE, BUN, CREATININE, CA) 2023-04-15 10:38:00 Solomon [facility] CBC WITH DIFF 2023-04-15 10:38:00 [facility] MAGNESIUM 2023-04-14 10:46:00 Omkar Oakes [facility] BASIC METABOLIC PANEL (NA, K, CL, CO2, GLUCOSE, BUN, CREATININE, CA) 2023-04-14 10:46:00 Omkar Oakes [facility] ACUTE CARE VENOUS BLOOD GAS 2023-04-13 15:12:00 Omkar Oakes [facility] PROCALCITONIN 2023-04-13 15:12:00 Omkar Oakes [facility] GALV ONLY - INFLUENZA A B RSV PCR 2023-04-13 13:03:00 [facility] HEPATIC FUNCTION PANEL ([id number]) (ALB,T.PRO,BILI T,BU/BC,ALT,AST,ALK PHOS) 2023-04-13 12:20:00 [facility] BASIC METABOLIC PANEL (NA, K, CL, CO2, GLUCOSE, BUN, CREATININE, CA) 2023-04-13 12:20:00 [facility] CBC WITH DIFF 2023-04-13 12:20:00 Trenton [facility] COVID-19 (ID NOW RAPID TESTING) 2023-04-13 07:06:00 Mariel Dewitt [facility] LAB ONLY COVID INTERPRETATION 2023-04-13 07:06:00 Mariel Dewitt [facility] XR CHEST 2 VW 2023-04-13 06:02:24 Mariel Dewitt [facility] XR CHEST 1 VW 2023-04-13 05:19:05 Mariel Dewitt [facility] BASIC METABOLIC PANEL (NA, K, CL, CO2, GLUCOSE, BUN, CREATININE, CA) 2023-04-13 05:03:00 Mariel Dewitt [facility] CBC WITH DIFF 2023-04-13 05:03:00 Mariel Dewitt [facility] N-TERMINAL PRO-BNP 2023-04-13 05:03:00 Daniela Dewitt [facility] HB ECG ROUTINE & RHYTHM STRIP 2023-04-13 04:59:36 Mariel Dewitt [facility] CONSENT/REFUSAL FOR DIAGNOSIS AND TREATMENT 2023-04-13 04:48:12 Doctor Unassigned, [place] [facility] HOSPITAL ADMISSION 2023-04-12 06:01:00 Doctor Un assigned, [place] [facility] PHOSPHORUS 2023-04-07 09:47:00 Estella De La O Lalo [facility] MAGNESIUM 2023-04-07 09:47:00 Estella De La [place] [facility] BASIC METABOLIC PANEL (NA, K, CL, CO2, GLUCOSE, BUN, CREATININE, CA) 2023-04-07 09:47:00 Raji De La Oooq [facility] CBC WITH DIFF 2023-04-07 09:47:00 Estella De [place] [facility] PHOSPHORUS 2023-04-06 10:15:00 August Leavitt [facility] MAGNESIUM 2023-04-06 10:15:00 August Leavitt [facility] BASIC METABOLIC PANEL (NA, K, CL, CO2, GLUCOSE, BUN, CREATININE, CA) 2023-04-06 10:15:00 August Leavitt [facility] CBC WITH DIFF 2023-04-06 10:15:00 August Leavitt [facility] VANCOMYCIN TROUGH 2023-04-06 00:08:00 Rox Leavitt i [facility] XR FOOT <3 VW BILATERAL 2023-04-05 17:17:00 August Leavitt [facility] PHOSPHORUS 2023-04-05 08:29:00 August Leavitt [facility] MAGNESIUM 2023-04-05 08:29:00 August Leavitt [facility] BASIC METABOLIC PANEL (NA, K, CL, CO2, GLUCOSE, BUN, CREATININE, CA) 2023-04-05 08:29:00 August Leavitt [facility] CBC WITH DIFF 2023-04-05 08:29:00 August Leavitt [facility] PHOSPHORUS 2023-04-04 11:05:00 Nas Romo Un [facility] MAGNESIUM 2023-04-04 11:05:00 Nas Romo [facility] BASIC METABOLIC PANEL (NA, K, CL, CO2, GLUCOSE, BUN, CREATININE, CA) 2023-04-04 11:05:00 Nas Romo [facility] CBC WITH DIFF 2023-04-04 11:05:00 [facility]23-04-04 11:05:00 Nas Romo [facility] MAGNESIUM 2023-04-04 11:05:00 Nas Romo [facility] BASIC METABOLIC PANEL (NA, K, CL, CO2, GLUCOSE, BUN, CREATININE, CA) 2023-04-04 11:05:00 Nas Romo [facility] CBC WITH DIFF 2023-04-04 11:05:00 Nas Romo [facility] [place] TIME OR (NON-REPORTABLE) 2023-04-03 19:30:00 [facility] ([facility]ABLE) 2023-04-03 19:30:00 Freya Eugene [facility] POCT ACT HIGH RANGE 2023-04-03 18:25:00 [facility] POCT ACT HIGH RANGE 2023-04-03 18:25:00 [facility] POCT ACT HIGH RANGE 2023-04-03 18:09:00 [facility] POCT ACT HIGH RANGE 2023-04-03 18:09:00 [facility] POCT ACT HIGH RANGE 2023-04-03 17:58:00 [facility] POCT ACT HIGH RANGE 2023-04-03 17:58:00 [facility] POCT ACT HIGH RANGE 2023-04-03 17:50:00 [facility] POCT ACT HIGH RANGE 2023-04-03 17:50:00 [facility] FEMORAL ENDARTERECTOMY 2023-04-03 15:10:00 [facility] FEMORAL ENDARTERECTOMY 2023-04-03 15:10:00 [facility] ACTIVATED PARTIAL THRMPLAS JASMINE 2023-04-03 14:21:00 Caro Roberts [facility] ACTIVATED PARTIAL THRMPLAS JASMINE 2023-04-03 14:21:00 Caro Roberts [facility] XR CHEST 1 VW 2023-04-03 10:54:00 Estella De La O [facility] XR CHEST 1 VW 2023-04-03 10:54:00 Estella De La O [facility] PHOSPHORUS 2023-04-03 09:15:00 August Leavitt [facility] MAGNESIUM 2023-04-03 09:15:00 August Leavitt [facility] BASIC METABOLIC PANEL (NA, K, CL, CO2, GLUCOSE, BUN, CREATININE, CA) 2023-04-03 09:15:00 August Leavitt [facility] CBC WITH DIFF 2023-04-03 09:15:00 August Leavitt [facility] PHOSPHORUS 2023-04-03 09:15:00 August Leavitt [facility] MAGNESIUM 2023-04-03 09:15:00 August Leavitt [facility] BASIC METABOLIC PANEL (NA, K, CL, CO2, GLUCOSE, BUN, CREATININE, CA) 2023-04-03 09:15:00 August Leavitt [facility] CBC WITH DIFF 2023-04-03 09:15:00 August Leavitt [facility] ACTIVATED PARTIAL THRMPLAS JASMINE 2023-04-03 01:51:00 Caro Roberts [facility] ACTIVATED PARTIAL THRMPLAS JASMINE 2023-04-03 01:51:00 Caro Roberts [facility] ACTIVATED PARTIAL THRMPLAS JASMINE 2023-04-02 14:38:00 Caro Roberts [facility] ACTIVATED PARTIAL THRMPLAS JASMINE 2023-04-02 14:38:00 Caro Roberts [facility] PHOSPHORUS 2023-04-02 06:15:00 SatinderbhavikAugust [facility] MAGNESIUM 2023-04-02 06:15:00 TsolivebhavikAugust [facility] BASIC METABOLIC PANEL (NA, K, CL, CO2, GLUCOSE, BUN, CREATININE, CA) 2023-04-02 06:15:00 Tree [facility] CBC WITH DIFF 2023-04-02 06:15:00 NasimaAugust alejandro [facility] ACTIVATED PARTIAL THRMPLAS JASMINE 2023-04-02 06:15:00 Caro Roberts [facility] HB ABO GROUPING 2023-04-02 06:15:00 Tree [facility] N-TERMINAL PRO-BNP 2023-04-02 06:15:00 [facility] 2023-04-02 06:15:00 Nasimaflavia August [facility] MAGNESIUM 2023-04-02 06:15:00 Satinderbhavik [facility] BASIC METABOLIC PANEL (NA, K, CL, CO2, GLUCOSE, BUN, CREATININE, CA) 2023-04-02 06:15:00 Tree [facility] CBC WITH DIFF 2023-04-02 06:15:00 August Leavitt [facility] ACTIVATED PARTIAL THRMPLAS JASMINE 2023-04-02 06:15:00 Caro Roberts [facility] HB ABO GROUPING 2023-04-02 06:15:00 Tsflavia [facility] N-TERMINAL PRO-BNP 2023-04-02 06:15:00 Deric Aguilera [facility] ACTIVATED PARTIAL THRMPLAS JASMINE 2023-04-01 17:48:00 Caro Roberts [facility] ACTIVATED PARTIAL THRMPLAS JASMINE 2023-04-01 17:48:00 Caro Roberts [facility] HB ECG ROUTINE & RHYTHM STRIP 2023-04-01 15:15:13 Nadine [facility] HB ECG ROUTINE & RHYTHM STRIP 2023-04-01 15:15:13 Laureano Mccoy [facility] PHOSPHORUS 2023-04-01 06:17:00 Sondra Eugene [facility] MAGNESIUM 2023-04-01 06:17:00 Sondra Eugene [facility] BASIC METABOLIC PANEL (NA, K, CL, CO2, GLUCOSE, BUN, CREATININE, CA) 2023-04-01 06:17:00 [facility]FF 2023-04-01 06:17:00 Sondra Eugene [facility] PROTHROMBIN TIME / INR 2023-04-01 06:17:00 Caro Roberts [facility] ACTIVATED PARTIAL THRMPLAS JASMINE 2023-04-01 06:17:00 Caro Roberts [facility] PHOSPHORUS 2023-04-01 06:17:00 [facility] 2023-04-01 06:17:00 [facility] BASIC METABOLIC PANEL (NA, K, CL, CO2, GLUCOSE, BUN, CREATININE, CA) 2023-04-01 06:17:00 [facility] DIFF 2023-04-01 06:17:00 Sondra Eugene [facility] PROTHROMBIN TIME / INR 2023-04-01 06:17:00 Caro Roberts [facility] ACTIVATED PARTIAL THRMPLAS JASMINE 2023-04-01 06:17:00 Caro Roberts [facility] VANCOMYCIN TROUGH 2023-03-31 17:10:00 Caro ramos [facility] ACTIVATED PARTIAL THRMPLAS JASMINE 2023-03-31 17:10:00 Caro Roberts [facility] VANCOMYCIN TROUGH 2023-03-31 17:10:00 Caro ramos [facility] ACTIVATED PARTIAL THRMPLAS JASMINE 2023-03-31 17:10:00 Caro Roberts [facility] HB ECG ROUTINE & RHYTHM STRIP 2023-03-31 15:07:38 Laureano Mccoy [facility] HB ECG ROUTINE & RHYTHM STRIP 2023-03-31 15:07:38 Laureano Mccoy [facility] PHOSPHORUS 2023-03-31 09:44:00 August Leavitt [facility] MAGNESIUM 2023-03-31 09:44:00 August Leavitt [facility] BASIC METABOLIC PANEL (NA, K, CL, CO2, GLUCOSE, BUN, CREATININE, CA) 2023-03-31 09:44:00 [facility] CBC WITH DIFF 2023-03-31 09:44:00 August Leavitt [facility] PROTHROMBIN TIME / INR 2023-03-31 09:44:00 Caro Roberts [facility] ACTIVATED PARTIAL THRMPLAS JASMINE 2023-03-31 09:44:00 Caro Roberts [facility] PHOSPHORUS 2023-03-31 09:44:00 August Leavitt [facility] MAGNESIUM 2023-03-31 09:44:00 August Leavitt [facility] BASIC METABOLIC PANEL (NA, K, CL, CO2, GLUCOSE, BUN, CREATININE, CA) 2023-03-31 09:44:00 Tree [facility] CBC WITH DIFF 2023-03-31 09:44:00 August Leavitt [facility] PROTHROMBIN TIME / INR 2023-03-31 09:44:00 Caro Roberts [facility] ACTIVATED PARTIAL THRMPLAS JASMINE 2023-03-31 09:44:00 Caro Roberts [facility] ACTIVATED PARTIAL THRMPLAS JASMINE 2023-03-31 03:02:00 Caro Roberts [facility] ACTIVATED PARTIAL THRMPLAS JASMINE 2023-03-31 03:02:00 Caro Roberts [facility] VANCOMYCIN TROUGH 2023-03-31 01:41:00 Caro ramos [facility] VANCOMYCIN TROUGH 2023-03-31 01:41:00 Caro ramos [facility] ACTIVATED PARTIAL THRMPLAS JASMINE 2023-03-30 19:24:00 Caro Roberts [facility] LACTIC ACID WHOLE BLOOD 2023-03-30 19:24:00 Valarie Bruce [facility] ACTIVATED PARTIAL THRMPLAS JASMINE 2023-03-30 19:24:00 Caro Roberts [facility] LACTIC ACID WHOLE BLOOD 2023-03-30 19:24:00 Valarie Bruce [facility] COMPLETE ECHOCARDIOGRAM DOBUTAMINE STRESS TEST W CONTRAST 2023-03-30 18:13:00 David [facility] COMPLETE ECHOCARDIOGRAM DOBUTAMINE STRESS TEST W CONTRAST 2023-03-30 18:13:00 David [facility] TRANSTHORACIC ECHO (TTE) COMPLETE W/ CONTRAST 2023-03-30 15:42:07 Tree [facility] TRANSTHORACIC ECHO (TTE) COMPLETE W/ CONTRAST 2023-03-30 15:42:07 Tree [facility] PHOSPHORUS 2023-03-30 09:54:00 Caro platt [facility] MAGNESIUM 2023-03-30 09:54:00 Caro platt [facility] BASIC METABOLIC PANEL (NA, K, CL, CO2, GLUCOSE, BUN, CREATININE, CA) 2023-03-30 09:54:00 Caro Roberts [facility] CBC WITH DIFF 2023-03-30 09:54:00 Caro platt [facility] PROTHROMBIN TIME / INR 2023-03-30 09:54:00 Caro Roberts [facility] ACTIVATED PARTIAL THRMPLAS JASMINE 2023-03-30 09:54:00 Caro Roberts [facility] PHOSPHORUS 2023-03-30 09:54:00 Caro platt [facility] MAGNESIUM 2023-03-30 09:54:00 Caro platt [facility] BASIC METABOLIC PANEL (NA, K, CL, CO2, GLUCOSE, BUN, CREATININE, CA) 2023-03-30 09:54:00 Caro Roberts [facility] CBC WITH DIFF 2023-03-30 09:54:00 Caro platt [facility] PROTHROMBIN TIME / INR 2023-03-30 09:54:00 Caro Roberts Jori [facility] ACTIVATED PARTIAL THRMPLAS JASMINE 2023-03-30 09:54:00 Caro Roberts Jori [facility] DOBUTAMINE STRESS ECHO 2023-03-30 06:01:00 Docto r Unassigned, [place] [facility] DOBUTAMINE STRESS ECHO 2023-03-30 06:01:00 Docto r Unassigned, [place] [facility] PROTHROMBIN TIME / INR 2023-03-30 03:27:00 Caro Roberts [facility] ACTIVATED PARTIAL THRMPLAS JASMINE 2023-03-30 03:27:00 Caro Roberts [facility] MRSA / MSSA SCREEN BY PCR, [facility] 2023-03-30 03:27:00 Caro Roberts [facility] PROTHROMBIN TIME / INR 2023-03-30 03:27:00 Caro Roberts [facility] ACTIVATED PARTIAL THRMPLAS JASMINE 2023-03-30 03:27:00 Caro Roberts [facility] MRSA / MSSA SCREEN BY PCR, [facility] 2023-03-30 03:27:00 Caro Roberts [facility] HOSPITAL ADMISSION 2023-03-29 06:01:00 Doctor Un assigned, [place] [facility] VENOUS REFLUX DUPLEX LEFT - BY VASCULAR LAB 2023-03-14 21:26:53 Sherita Magaña [facility] XR FOOT 3+ VW RIGHT 2023-02-19 20:26:32 Kari Jose ra [facility] COMP. METABOLIC PANEL ([id number]) 2023-02-19 20:02:00 Andie Jose [facility] SEDIMENTATION RATE 2023-02-19 20:02:00 Macario Jose [facility] CBC WITH DIFF 2023-02-19 20:02:00 Andie Jose [facility] CONSENT/REFUSAL FOR DIAGNOSIS AND TREATMENT 2023-02-19 19:20:41 Doctor Unassigned, [place] [facility] MAGNESIUM 2022-12-27 11:04:00 Florian Nguyen [facility] BASIC METABOLIC PANEL (NA, K, CL, CO2, GLUCOSE, BUN, CREATININE, CA) 2022-12-27 11:04:00 Florian Nguyen [facility] CBC WITH DIFF 2022-12-27 11:04:00 Florian Nguyen [facility] TROPONIN I 2022-12-26 09:43:00 Vincenzo Portillo [facility] HB ECG ROUTINE & RHYTHM STRIP 2022-12-26 09:32:59 Vincenzo Portillo [facility] AC PANEL 21 + LACTIC ACID 2022-12-25 18:15:00 Brittany Baldwin [facility] CT CHEST PULMONARY ANGIOGRAM 2022-12-25 15:08:55 Brittany Maldonado [facility] DUPLEX VENOUS LEGS BILATERAL - BY VASCULAR LAB 2022-12-25 14:47:00 Brittany Maldonado [facility] HB ECG ROUTINE & RHYTHM STRIP 2022-12-25 13:27:14 Brittany Maldonado [facility] XR CHEST 1 VW 2022-12-25 13:27:00 Brittany Maldonado [facility] TROPONIN I 2022-12-25 13:14:00 Brittany Maldonado [facility] COMP. METABOLIC PANEL ([id number]) 2022-12-25 13:14:00 Brittany Maldonado [facility] CBC WITH DIFF 2022-12-25 13:14:00 Brittany Maldonado [facility] D-DIMER 2022-12-25 13:14:00 Brittany Maldonado [facility] N-TERMINAL PRO-BNP 2022-12-25 13:14:00 Brittany Sherman [facility] CONSENT/REFUSAL FOR DIAGNOSIS AND TREATMENT 2022-12-25 13:00:50 Doctor Unassigned, [place] [facility] CT CHEST PULMONARY ANGIOGRAM 2022-11-29 04:04:00 Ced Guy [facility] RAPID INFLUENZA A/B 2022-11-29 03:43:00 Shama Guy [facility] COVID-19 (ID NOW RAPID TESTING) 2022-11-29 03:43:00 Ced Guy [facility] AC PANEL 21 + LACTIC ACID 2022-11-29 03:39:00 Ced Guy [facility] TROPONIN I 2022-11-29 03:33:00 Ced Guy [facility] COMP. METABOLIC PANEL ([id number]) 2022-11-29 03:33:00 Ced Guy [facility] CBC WITH DIFF 2022-11-29 03:33:00 [facility] 2022-11-29 03:33:00 Ced Guy [facility] NOTICE OF PRIVACY PRACTICES 2022-11-29 03:02:14 Doctor Unassigned, [place] [facility] CONSENT/REFUSAL FOR DIAGNOSIS AND TREATMENT 2022-11-29 03:01:46 Doctor Unassigned, [place] [facility] BASIC METABOLIC PANEL (NA, K, CL, CO2, GLUCOSE, BUN, CREATININE, CA) 2022-11-15 08:45:00 Lupe Brannon [facility] CBC WITH DIFF 2022-11-15 08:45:00 Lupe Brannon [facility] BASIC METABOLIC PANEL (NA, K, CL, CO2, GLUCOSE, BUN, CREATININE, CA) 2022-11-14 09:55:00 Ibis Hunter [facility] CBC WITH DIFF 2022-11-14 09:55:00 Ibis Hunter [facility] PROCALCITONIN 2022-11-14 09:55:00 [facility] XR CHEST 1 VW 2022-11-13 07:10:00 [facility]ili [facility] TROPONIN I 2022-11-13 06:22:00 Wili Chauhan [facility] COMP. METABOLIC PANEL ([id number]) 2022-11-13 06:22:00 Wili Chauhan [facility] CBC WITH DIFF 2022-11-13 06:22:00 [facility] HB ECG ROUTINE & RHYTHM STRIP 2022-11-13 06:15:01 Wili Chauhan [facility] BASIC METABOLIC PANEL (NA, K, CL, CO2, GLUCOSE, BUN, CREATININE, CA) 2022-10-23 09:03:00 Kedar Madera [facility] CBC WITH DIFF 2022-10-23 09:03:00 [facility] XR CHEST 1 VW 2022-10-23 00:41:00 Kedar Madera [facility] EKG-12 LEAD 2022-10-22 22:32:11 Matthew Monge [facility] CONSENT/REFUSAL FOR DIAGNOSIS AND TREATMENT 2022-10-22 13:37:31 Doctor Unassigned, [place] [facility] BASIC METABOLIC PANEL (NA, K, CL, CO2, GLUCOSE, BUN, CREATININE, CA) 2022-10-17 08:37:00 Deric Hawkins [facility] CBC WITH DIFF 2022-10-17 08:37:00 Deric Hawkins [facility] TROPONIN I 2022-10-15 12:24:00 Wili Chauhan [facility] COMP. METABOLIC PANEL ([id number]) 2022-10-15 12:24:00 Wili Chauhan [facility] CBC WITH DIFF 2022-10-15 12:24:00 [facility]ili [facility] N-TERMINAL PRO-BNP 2022-10-15 12:24:00 Wili Chauhan [facility] XR CHEST 1 VW 2022-10-15 11:52:47 Singer [facility] HB ECG ROUTINE & RHYTHM STRIP 2022-10-15 11:37:53 Wili Chauhan [facility] CONSENT/REFUSAL FOR DIAGNOSIS AND TREATMENT 2022-10-15 11:20:52 Doctor Unassigned, [place] [facility] URINALYSIS 2022-10-02 15:23:00 Singer [facility] CT ABDOMEN PELVIS W CONTRAST 2022-10-02 13:39:00 Singer [facility] LIPASE 2022-10-02 13:09:00 Singer [facility] TROPONIN I 2022-10-02 13:09:00 Goddard [facility] COMP. METABOLIC PANEL ([id number]) 2022-10-02 13:09:00 Singer [facility] CBC WITH DIFF 2022-10-02 13:09:00 Singer [facility] CONSENT/REFUSAL FOR DIAGNOSIS AND TREATMENT 2022-10-02 12:47:09 Doctor Unassigned, [place] [facility] BASIC METABOLIC PANEL (NA, K, CL, CO2, GLUCOSE, BUN, CREATININE, CA) 2022-09-18 08:37:00 Elsa [facility] CBC WITH DIFF 2022-09-18 08:37:00 Elsa [facility] PROCALCITONIN 2022-09-18 08:37:[address] [facility] COVID-19 (ID NOW RAPID TESTING) 2022-09-18 01:08:[address] [facility] SPUTUM CULTURE 2022-09-17 16:54:[address] [facility] COMP. METABOLIC PANEL ([id number]) 2022-09-17 06:40:00 Singer [facility] XR CHEST 1 VW 2022-09-17 06:24:45 Singer [facility] HB ECG ROUTINE & RHYTHM STRIP 2022-09-17 06:04:28 Jayesh Goddard [facility] TROPONIN I 2022-09-17 06:01:00 Jayesh [facility] CBC WITH DIFF 2022-09-17 06:01:00 Jayesh [facility] N-TERMINAL PRO-BNP 2022-09-17 06:01:00 Jayesh Goddard [facility] NOTICE OF PRIVACY PRACTICES 2022-09-17 05:48:21 Doctor Unassigned, [place] [facility] CONSENT/REFUSAL FOR DIAGNOSIS AND TREATMENT 2022-09-17 05:47:33 Doctor Unassigned, [place] [facility] EKG-12 LEAD 2022-08-21 01:33:44 Osiris [facility] ANGIOGRAM CHEST 2022-08-20 23:19:19 Osiris Smith [facility] CT ANGIOGRAM ABDOMEN/PELVIS 2022-08-20 23:19:19 Osiris Smith [facility] XR CHEST 1 VW 2022-08-20 22:57:45 Osiris [facility] LIPASE 2022-08-20 22:48:00 Osiris [facility] TROPONIN I 2022-08-20 22:48:00 Osiris [facility] COMP. METABOLIC PANEL ([id number]) 2022-08-20 22:48:00 Osiris Smith [facility] CBC WITH DIFF 2022-08-20 22:48:00 Os[facility]is [facility] PROTHROMBIN TIME / INR 2022-08-20 22:48:00 Osiris Smith [facility] ACTIVATED PARTIAL THRMPLAS JASMINE 2022-08-20 22:48:00 Osiris Smith [facility] CONSENT/REFUSAL FOR DIAGNOSIS AND TREATMENT 2022-08-20 22:26:57 Doctor Unassigned, [place] [facility] XR CHEST 1 VW 2022-05-29 09:36:00 Judie Garcia [facility] BASIC METABOLIC PANEL (NA, K, CL, CO2, GLUCOSE, BUN, CREATININE, CA) 2022-05-29 09:20:00 Judie Garcia [facility] CBC WITH DIFF 2022-05-29 09:20:00 Judie Garcia [facility] RAPID INFLUENZA A/B 2022-05-29 09:20:00 Judie Garcia [facility] COVID-19 (ID NOW RAPID TESTING) 2022-05-29 09:20:00 Judie Garcia [facility] Encounters Start Date/Time End Date/Time Encounter Type Admission Type Attending [facility] Care Facility Care Department Encounter ID Source 2021-02-24 17:43:47 Emergency [facility] [id number] [facility] 2021-02-24 14:55:54 Emergency [facility] [id number] [facility] 2024-08-28 16:20:00 2024-08-28 16:20:00 Outpatient R OBI-KARAN , JON OBI-KARAN , JON [facility] [id number] [facility] 2024-08-25 00:00:00 2024-08-25 15:30:35 [facility] [id number] 350.1.13.10 4.2.7.2.686 [id number] [facility] 2024-08-22 08:00:00 2024-08-22 08:00:00 Outpatient R [facility] [id number] [facility] 2024-08-19 11:00:00 2024-08-19 11:00:00 Outpatient BETTY MCDONNELL [facility] [id number] [facility] 2024-08-12 11:00:00 2024-08-12 11:00:00 Outpatient BETTY MCDONNELL [facility] [id number] [facility] 2024-07-28 00:00:00 2024-07-29 10:39:29 Transition of Care Conchita Kennedy Miatha R SHEARN DOMONIQUE SCHMIDT .840.114 350.1.13.10 4.2.7.2.686 [id number] [facility] 2024-07-21 15:22:00 2024-07-27 11:42:00 Inpatient X FLORIAN NGUYEN [facility] [id number] [facility] 2024-07-21 15:22:00 2024-07-27 11:42:00 Hospital Encounter Ced Guy David [facility] 1.840.114 350.1.13.10 4.2.7.2.686 [id number] [facility] 2024-07-21 11:20:00 2024-07-21 11:20:00 Outpatient R OBI-KARAN , JON OBI-KARAN , JON [facility] [id number] [facility] 2024-07-08 09:37:00 2024-07-13 15:18:00 Inpatient X FLORIAN NGUYEN [facility] [id number] [facility] 2024-05-16 00:00:00 2024-06-21 18:21:09 Patient Secure Msg Doctor Unassigned, [place] Doctor Unassigned, [place] [facility] MED[facility] OFF[facility] BUILD[facility] 1.840.114 350.1.13.10 4.2.7.2.686 [id number] [facility] 2023-11-14 00:00:00 2024-06-14 07:17:13 Orders Only Felisa, Kiana Roberto, KianaReplaced by [facility] OFF[facility] BUILD[facility] 1..840.114 350.1.13.10 4.2.7.2.686 [id number] [facility] 2023-08-13 00:00:00 2024-06-14 02:20:35 Orders Only Doctor Unassigned, [place] Doctor Unassigned, [place] [facility] [id number] 350.1.13.10 4.2.7.2.686 [id number] [facility] 2024-06-13 10:30:00 2024-06-13 11:00:00 Office Visit Amie Shen [facility] NAL [facility]ILD[facility] 1.2.84.114 350.1.13.10 4.2.7.2.686 [id number] [facility] 2024-06-13 10:30:00 2024-06-13 10:30:00 Outpatient R AMIE SHEN SHIWAN [facility] [id number] [facility] 2024-06-12 00:00:00 2024-06-12 10:44:46 [facility] MED[facility] OFF[facility] BUILD[facility] [id number] 350.1.13.10 4.2.7.2.686 [id number] [facility] 2024-06-09 00:00:00 2024-06-11 11:51:45 [facility] [id number] 350.1.13.10 4.2.7.2.686 [id number] [facility] 2024-06-09 00:00:00 2024-06-11 11:51:31 Telephone Mariaelenamaida [facility] RAMESH?[facility] 1.2.840.114 350.1.13.10 4.2.7.2.686 [id number] [facility] 2024-05-15 00:00:00 2024-05-20 17:13:15 Lesley Par[facility] RAMESH?[facility] 1.2840.114 350.1.13.10 4.2.7.2.686 [id number] [facility] 2024-05-15 00:00:00 2024-05-16 12:50:49 Patient Secure [facility] MED[facility] OFFICE BUILD[facility] 1.2840.114 350.1.13.10 4.2.7.2.686 [id number] [facility] 2024-04-29 00:00:00 2024-04-29 17:24:15 RefNegar [facility] 1.2.114 350.1.13.10 4.2.7.2.686 [id number] [facility] 2024-03-12 00:00:00 2024-03-12 10:54:17 Patient Outreach Ewa Cruz Laura L [place] 1.840.114 350.1.13.10 4.2.7.2.686 [id number] [facility] 2024-03-05 00:00:00 2024-03-06 10:06:32 Transition of Care Marilia Jones Kristi L [place] 1.284.114 350.1.13.10 4.2.7.2.686 [id number] [facility] 2024-03-01 07:29:00 2024-03-04 15:59:00 Inpatient [facility] [id number] [facility] 2024-03-01 07:29:00 2024-03-04 15:59:00 Hospital Encounter [place], Florian Castañeda [facility] 1.2840.114 350.1.13.10 4.2.7.2.686 [id number] [id number] [facility] 2024-02-14 00:00:00 2024-02-14 13:00:56 Telephone Betty Schmitz [facility] RAMESH?[facility] 1.2840.114 350.1.13.10 4.2.7.2.686 [id number] 044 [id number] [facility] 2024-02-12 00:00:00 2024-02-12 12:05:57 Telephone Lalitha Mitchell Peggy C [facility] PROFESSIO NAL BUILDING 1.284.114 350.1.13.10 4.2.7.2.686 [id number] [facility] 2023-12-17 00:00:00 2024-01-19 18:22:46 Patient Secure Msg Doctor Unassigned, [place] Doctor Unassigned, [place] CARLIE SCHMIDT 1.2840.114 350.1.13.10 4.2.7.2.686 [id number] [facility] 2024-01-17 14:15:00 2024-01-17 14:15:00 Outpatient STEVEN MELGAR [facility] [id number] [facility] 2024-01-17 00:00:00 2024-01-17 10:35:14 Telephone Kathie Slaughter Julie [facility] 1.2840.114 350.1.13.10 4.2.7.2.686 [id number] [facility] 2023-12-19 14:30:00 2023-12-19 14:42:46 Outpatient ERIC EASTMAN [facility] [id number] [facility] 2023-12-19 14:30:00 2023-12-19 14:42:46 [facility] 1.114 350.1.13.10 4.2.7.2.686 [id number] 044 [id number] [facility] 2023-12-17 00:00:00 2023-12-18 08:21:35 Betty Garcia [facility] RAMESH?[facility]ENA SHANNON [facility] 1.114 350.1.13.10 4.2.7.2.686 [id number] 044 [id number] [facility] 2023-12-12 00:00:00 2023-12-12 12:42:50 Patient Outreach Ewa Cruz, Ewa SCHMIDT 1.114 350.1.13.10 4.2.7.2.686 [id number] [facility] 2023-11-01 00:00:00 2023-12-08 18:25:42 Patient Secure Msg Doctor Unassigned, [place] Doctor Unassigned, [place] [facility] .114 350.1.13.10 4.2.7.2.686 [id number] [id number] [facility] 2023-12-07 11:00:00 2023-12-07 11:18:05 Outpatient R SHERITA MAGAÑA [facility] [id number] [facility] 2023-12-07 11:00:00 2023-12-07 11:18:05 Office Visit Sherita Magaña [facility]?MALENA [facility] OFF[facility] BUILD[facility] 1.114 350.1.13.10 4.2.7.2.686 [id number] 044 [id number] [facility] 2023-12-05 00:00:00 2023-12-05 16:52:56 Telephone Lalitha Mitchell Peggy [facility] 1.2.840.114 350.1.13.10 4.2.7.2.686 [id number] [facility] 2023-12-04 00:00:00 2023-12-04 13:49:07 Transition of Care Jasmine Doshi CARLIE SCHMIDT 1.2.840.114 350.1.13.10 4.2.7.2.686 [id number] 403 [id number] [facility] 2023-12-01 11:07:00 2023-12-03 13:00:00 Inpatient X FLORIAN NGUYEN [facility] [id number] [facility] 2023-12-01 11:07:00 2023-12-03 13:00:00 Hospital Encounter Ajay Alvarez David [facility] 1.2840.114 350.1.13.10 4.2.7.2.686 [id number] [id number] [facility] 2023-11-20 00:00:00 2023-11-20 13:44:25 Patient Outreach Areli Lorenzana SaloómnAreli CARLIE SCHMIDT 1.2.840.114 350.1.13.10 4.2.7.2.686 [id number] [facility] 2023-10-17 00:00:00 2023-11-17 18:17:18 Patient Secure Msg Doctor Unassigned, [place] [facility] 1.2.840.114 350.1.13.10 4.2.7.2.686 [id number] [id number] [facility] 2023-11-14 00:00:00 2023-11-14 14:31:47 Case Management Mohini Wilson 1.2.840.114 350.1.13.10 4.2.7.2.686 [id number] [facility] 2023-11-13 00:00:00 2023-11-14 08:25:29 Telephone [facility] 1.2840.114 350.1.13.10 4.2.7.2.686 [id number] 044 [id number] [facility] 2023-11-13 16:00:00 2023-11-13 16:00:00 Outpatient AMIE STEVE SHIWAN [facility] [id number] [facility] 2023-10-29 00:00:00 2023-10-29 18:52:13 Transition of Care Jasmine Doshi DOMONIQUE SCHMIDT 1.2.840.114 350.1.13.10 4.2.7.2.686 [id number] [facility] 2023-10-29 00:00:00 2023-10-29 15:15:10 Patient Outreach Areli Lorenzana CARLIE SCHMIDT 1.2.840.114 350.1.13.10 4.2.7.2.686 [id number] 403 [id number] [facility] 2023-10-29 00:00:00 2023-10-29 08:39:59 Patient Outreach Areli Lorenzana CARLIE YOUSSEF PLASHELLI 1.2.840.114 350.1.13.10 4.2.7.2.686 [id number] [facility] 2023-10-25 15:50:00 2023-10-27 15:50:00 Inpatient X GONZALO [facility] [id number] [facility] 2023-10-25 15:50:00 2023-10-27 15:50:00 Hospital Encounter Julieta Ying Owen Li-Young [place], [facility] 1.2.840.114 350.1.13.10 4.2.7.2.686 [id number] [facility] 2023-10-25 00:00:00 2023-10-26 00:00:00 Telephone Betty Schmitz [facility] LEXIE [facility] BUILDING 1.2.840.114 350.1.13.10 4.2.7.2.686 [id number] 044 [id number] [facility] 2023-10-25 00:00:00 2023-10-25 14:43:43 Patient Outreach Areli LorenzanaKely DEJESUSSHELLI 1.2.840.114 350.1.13.10 4.2.7.2.686 [id number] 403 [id number] [facility] 2023-10-24 00:00:00 2023-10-24 14:22:49 Letter (Out) Faculty, Pulmonary [facility] MEDICAL OFFICE BUILDING 1.2.840.114 350.1.13.10 4.2.7.2.686 [id number] 084 [id number] [facility] 2023-10-23 00:00:00 2023-10-24 09:30:42 Patient Outreach Areli LorenzanaKely SCHMIDT 1.2.840.114 350.1.13.10 4.2.7.2.686 [id number] 403 [id number] [facility] 2023-10-19 00:00:00 2023-10-19 10:05:05 Patient Outreach Areli LorenzanaBubba YOUSSEFKely SCHMIDT 1.2.840.114 350.1.13.10 4.2.7.2.686 [id number] 403 [id number] [facility] 2023-10-16 00:00:00 2023-10-16 15:48:24 Transition of Care Marilia Jones 1.2.840.114 350.1.13.10 4.2.7.2.686 [id number] 403 [id number] [facility] 2023-10-12 22:29:00 2023-10-14 15:16:00 Inpatient X KEDAR MADERA [facility] [id number] [facility] 2023-10-12 22:29:00 2023-10-14 15:16:00 Hospital Encounter Mckenzie, Nakul Ramos, Elsie Madera, Kedar Hunter, [facility] 1.2.840.114 350.1.13.10 4.2.7.2.686 [id number] [id number] [facility] 2023-09-04 00:00:00 2023-10-06 18:24:36 Patient Secure Msg Doctor Unassigned, [place] [facility] 1.2.840.114 350.1.13.10 4.2.7.2.686 [id number] [id number] [facility] 2023-09-12 00:00:00 2023-10-02 15:56:11 Refill [facility] RAMESH?[facility] MEDICAL OFFICE BUILDING 1.2.840.114 350.1.13.10 4.2.7.2.686 [id number] 044 [id number] [facility] 2023-09-21 11:00:00 2023-09-21 11:00:00 Outpatient AMIE STEVE SHIWAN [facility] [id number] [facility] 2023-09-11 00:00:00 2023-09-13 16:15:39 [facility] MEDICAL OFFICE BUILDING 1.2.840.114 350.1.13.10 4.2.7.2.686 [id number] 044 [id number] [facility] 2023-09-07 00:00:00 2023-09-07 15:14:21 Refill [facility] RAMESH?[facility] MEDICAL OFFICE BUILDING 1.2.840.114 350.1.13.10 4.2.7.2.686 [id number] [id number] [facility] 2023-09-04 14:00:00 2023-09-04 14:00:00 Outpatient BETTY MCDONNELL [facility] [id number] [facility] 2023-09-04 00:00:00 2023-09-04 09:15:40 Patient Outreach Ritu Gardnermalena Mac [facility] 1.2840.114 350.1.13.10 4.2.7.2.686 [id number] [id number] [facility] 2023-08-23 00:00:00 2023-08-23 00:00:00 Refill Mariaelenamaida [facility] OFF[facility] BUILD[facility] 1.2840.114 350.1.13.10 4.2.7.2.686 [id number] [id number] [facility] 2023-08-21 00:00:00 2023-08-21 00:00:00 Refkelly Schmitz [facility] MEDICAL OFFICE BUILDING 1.20.114 350.1.13.10 4.2.7.2.686 [id number] [id number] [facility] 2023-08-03 00:00:00 2023-08-03 00:00:00 Patient Outreach Areli Lorenzana 1.2840.114 350.1.13.10 4.2.7.2.686 [id number] [facility] 2023-08-02 13:00:00 2023-08-02 13:00:00 Outpatient GILBERT MILES [facility] [id number] [facility] 2023-07-24 00:00:00 2023-07-24 00:00:00 Gilbert Chen [facility] 1.20.114 350.1.13.10 4.2.7.2.686 [id number] [facility] 2023-07-23 06:59:00 2023-07-23 19:38:[address] [facility] [id number] [facility] 2023-07-23 08:57:00 2023-07-23 11:37:00 Surgery Gilbert Rodríguez [facility] 1.2.840.114 350.1.13.10 4.2.7.2.686 [id number] [facility] 2023-07-19 13:00:00 2023-07-19 13:11:04 Outpatient R GILBERT RODRÍGUEZ [facility] [id number] [facility] 2023-07-19 13:00:00 2023-07-19 13:11:04 Office Visit Gilbert Rodríguez [facility] 1..840.114 350.1.13.10 4.2.7.2.686 [id number] [facility] 2023-07-16 00:00:00 2023-07-16 00:00:00 Patient Outreach Harriet To BRAYAN 1.2.840.114 350.1.13.10 4.2.7.2.686 [id number] [facility] 2023-06-29 13:00:00 2023-06-29 13:00:00 Outpatient MARGARET JONES [facility] [id number] [facility] 2023-06-21 07:15:00 2023-06-21 07:30:00 [facility] SHEILABHARATHI [facility] OFF[facility] BUILDING 1.2.840.114 350.1.13.10 4.2.7.2.686 [id number] [id number] [facility] 2023-06-21 00:00:00 2023-06-21 00:00:00 Outpatient SABRINA ESPOSITO VIRGINIA [facility] [id number] [facility] 2023-06-14 00:00:00 2023-06-14 00:00:00 Outpatient SABRINA ESPOSITO [place] [facility] [id number] [facility] 2023-06-12 00:00:00 2023-06-12 00:00:00 Refill [facility] RAMESH?[facility] BUILD[facility] 1.2.840.114 350.1.13.10 4.2.7.2.686 [id number] 044 [id number] [facility] 2023-06-11 00:00:00 2023-06-11 00:00:00 [facility] 1.2.840.114 350.1.13.10 4.2.7.2.686 [id number] 044 [id number] [facility] 2023-06-06 00:00:00 2023-06-06 00:00:00 Telephone Villareal [facility] BUILDING 1.2.840.114 350.1.13.10 4.2.7.2.686 [id number] [facility] 2023-06-06 00:00:00 2023-06-06 00:00:00 Telephone AnneGilbert [facility] 1.2.840.114 350.1.13.10 4.2.7.2.686 [id number] [facility] 2023-06-04 14:00:00 2023-06-04 14:57:05 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 2, Adc Lab Dionna [facility] BUILDING 1.2.840.114 350.1.13.10 4.2.7.2.686 [id number] [facility] 2023-06-04 13:15:00 2023-06-04 13:37:52 Outpatient R [facility]NA [facility] [id number] [facility] 2023-06-04 13:15:00 2023-06-04 13:37:52 Office Visit Dionna [facility] BUILDING 1..114 350.1.13.10 4.2.7.2.686 [id number] [facility] 2023-06-04 00:00:00 2023-06-04 00:00:00 Patient Secure Msg Dionna [facility] BUILDING 1..114 350.1.13.10 4.2.7.2.686 [id number] [facility] 2023-06-04 00:00:00 2023-06-04 00:00:00 Patient Secure Msg Doctor Unassigned, [place] [facility] 1.114 350.1.13.10 4.2.7.2.686 [id number] 019 [id number] [facility] 2023-05-31 15:00:00 2023-05-31 15:17:01 Outpatient R GILBERT RODRÍGUEZ [facility] [id number] [facility] 2023-05-31 15:00:00 2023-05-31 15:17:01 Office Visit Gilbert Rodríguez [facility] 1..114 350.1.13.10 4.2.7.2.686 [id number] [facility] 2023-05-28 11:30:00 2023-05-28 11:45:00 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 Lab, Nathanael Schmtiz [facility]?ANNALISANelda SHEILA MEDICAL OFFICE BUILDING 1..114 350.1.13.10 4.2.7.2.686 [id number] [facility] 2023-05-28 11:00:00 2023-05-28 11:36:36 Office Visit [facility] RAMESH?ANNALISANelda SHEILABHARATHI MEDICAL OFFICE BUILDING 1..114 350.1.13.10 4.2.7.2.686 [id number] 044 [id number] [facility] 2023-05-28 11:30:00 2023-05-28 11:30:00 Outpatient R BETTY SCHMITZ [facility] [id number] [facility] 2023-05-28 00:00:00 2023-05-28 00:00:00 Orders Only Doctor Unassigned, [place] [facility] 1.2.840.114 350.1.13.10 4.2.7.2.686 [id number] [facility] 2023-05-21 00:00:00 2023-05-21 00:00:00 Transition of Care Jasmine Doshi DOMONIQUE SCHMIDT 1.2.840.114 350.1.13.10 4.2.7.2.686 [id number] [facility] 2023-05-11 03:07:00 2023-05-18 11:55:00 Inpatient X KEDAR MADERA [facility] [id number] [facility] 2023-05-11 03:07:00 2023-05-18 11:55:00 Hospital Encounter Judie Garcia Donnell [place], Jelani [facility] 1.2840.114 350.1.13.10 4.2.7.2.686 [id number] [facility] 2023-05-16 09:00:00 2023-05-16 12:03:00 Surgery Sabrina Villareal [facility] [place] 1.2840.114 350.1.13.10 4.2.7.2.686 [id number] [facility] 2023-05-10 00:35:00 2023-05-10 06:49:00 Emergency X ELSIE RAMOS [facility] ERT [id number] [facility] 2023-05-10 00:35:00 2023-05-10 06:49:00 Emergency Elsie Ramos [facility] 1.2.840.114 350.1.13.10 4.2.7.2.686 [id number] [id number] [facility] 2023-05-07 12:00:00 2023-05-07 12:15:00 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 Lab, Nathanael [facility] 1.2.840.114 350.1.13.10 4.2.7.2.686 [id number] [facility] 2023-05-07 11:00:00 2023-05-07 12:00:05 [facility] [id number] [facility] 2023-05-07 11:00:00 2023-05-07 12:00:05 [facility] MED[facility] OFF[facility] BUILD[facility] 1.2.840.114 350.1.13.10 4.2.7.2.686 [id number] 044 [id number] [facility] 2023-05-07 00:00:00 2023-05-07 00:00:00 Telephone Gilbert Rodríguez [facility] 1.2.840.114 350.1.13.10 4.2.7.2.686 [id number] [facility] 2023-05-07 00:00:00 2023-05-07 00:00:00 Patient Outreach Ewa Danielle [facility] MEDICAL OFFICE BUILDING 1.2.840.114 350.1.13.10 4.2.7.2.686 [id number] 044 [id number] [facility] 2023-05-03 12:15:00 2023-05-03 12:55:43 Outpatient R BETTY SCHMITZ [facility] [id number] [facility] 2023-05-03 12:15:00 2023-05-03 12:55:43 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 Lab, Ang - Db Ainsley [facility] OFF[facility] BUILDING 1.2.114 350.1.13.10 4.2.7.2.686 [id number] [facility] 2023-05-03 00:00:00 2023-05-03 00:00:00 [facility] OFF[facility] BUILD[facility] 1.2.114 350.1.13.10 4.2.7.2.686 [id number] 044 [id number] [facility] 2023-05-03 00:00:00 2023-05-03 00:00:00 Telephone [facility] RAMESH[facility] MED[facility] OFF[facility] BUILD[facility] 1.114 350.1.13.10 4.2.7.2.686 [id number] [id number] [facility] 2023-05-01 17:02:00 2023-05-02 18:56:00 Emergency X VINCENZO PORTILLO [facility] ERT [id number] [facility] 2023-05-01 17:02:00 2023-05-02 18:56:00 Emergency Ced Guy Mohammad A. [facility] 1.114 350.1.13.10 4.2.7.2.686 [id number] 084 [id number] [facility] 2023-05-01 00:00:00 2023-05-01 00:00:00 Patient Outreach Harriet To 1..114 350.1.13.10 4.2.7.2.686 [id number] [facility] 2023-05-01 00:00:00 2023-05-01 00:00:00 Patient Outreach Areli Lorenzana 1.2.840.114 350.1.13.10 4.2.7.2.686 [id number] [facility] 2023-05-01 00:00:00 2023-05-01 00:00:00 Telephone AinsleyBetty [facility] SHIV [facility] MED[facility] OFF[facility] BUILDING 1.2840.114 350.1.13.10 4.2.7.2.686 [id number] [id number] [facility] 2023-04-27 16:30:00 2023-04-27 16:30:00 Outpatient R NEGAR SCHMITZTHIA [facility] [id number] [facility] 2023-04-27 00:00:00 2023-04-27 00:00:00 Telephone [facility] 1.0.114 350.1.13.10 4.2.7.2.686 [id number] [facility] 2023-04-27 00:00:00 2023-04-27 00:00:00 Patient Secure Msg Doctor Unassigned, [place] [facility] 1.2840.114 350.1.13.10 4.2.7.2.686 [id number] [facility] 2023-04-26 00:00:00 2023-04-26 00:00:00 Orders Only Doctor Unassigned, [place] [facility] 1.2840.114 350.1.13.10 4.2.7.2.686 [id number] [facility] 2023-04-25 00:00:00 2023-04-25 00:00:00 Patient Outreach Areli Lorenzana 1.840.114 350.1.13.10 4.2.7.2.686 [id number] [facility] 2023-04-25 00:00:2023-04-25 00:00:00 Transition of Care Jasmine Doshi 1.2.840.114 350.1.13.10 4.2.7.2.686 [id number] 403 [id number] [facility] 2023-04-19 03:32:00 2023-04-23 17:05:00 Inpatient X PORTILLO ARMANDOTAMMIE [facility] [id number] [facility] 2023-04-19 03:32:00 2023-04-23 17:05:00 Hospital Encounter Andie Jose Mohammad A. [facility] 1.2.840.114 350.1.13.10 4.2.7.2.686 [id number] 081 [id number] [facility] 2023-04-18 00:00:00 2023-04-18 00:00:00 Transition of Care Jasmine Doshi 1.2.840.114 350.1.13.10 4.2.7.2.686 [id number] [facility] 2023-04-18 00:00:00 2023-04-18 00:00:00 [facility] 1.2.840.114 350.1.13.10 4.2.7.2.686 [id number] [facility] 2023-04-18 00:00:00 2023-04-18 00:00:00 Telephone Betty Schmitz [facility]?MALENA SHEILABHARATHI MEDICAL OFFICE BUILDING 1.2840.114 350.1.13.10 4.2.7.2.686 [id number] 044 [id number] [facility] 2023-04-12 22:52:00 2023-04-17 18:12:00 Inpatient X RADHA ABIGAIL [facility] [id number] [facility] 2023-04-12 22:52:00 2023-04-17 18:12:00 Hospital Encounter Mariel Dewitt Radha Abigail [facility] 1.2.840.114 350.1.13.10 4.2.7.2.686 [id number] [facility] 2023-04-17 00:00:00 2023-04-17 00:00:00 Transition of Care Ashlee Song 1.2.840.114 350.1.13.10 4.2.7.2.686 [id number] [facility] 2023-04-10 00:00:00 2023-04-10 00:00:00 Transition of Care Jasmine Doshi [facility] 1.2.840.114 350.1.13.10 4.2.7.2.686 [id number] [facility] 2023-03-29 18:47:00 2023-04-09 16:00:00 [id number] 2023-03-29 18:47:00 2023-04-09 16:00:00 Hospital Encounter [facility] 1.2.840.114 350.1.13.10 4.2.7.2.686 [id number] [facility] 2023-04-03 08:53:00 2023-04-03 14:07:00 Surgery [facility] 1.2.840.114 350.1.13.10 4.2.7.2.686 [id number] [facility] 2023-03-29 13:00:00 2023-03-29 13:15:00 Office Visit Gilbert Rodríguez [facility] 1.2.840.114 350.1.13.10 4.2.7.2.686 [id number] [facility] 2023-03-29 13:00:00 2023-03-29 13:00:00 Outpatient R GILBERT RODRÍGUEZ [facility] [id number] [facility] 2023-03-28 00:00:00 2023-03-28 00:00:00 Telephone Andrew [facility] RAMESH?[facility] 1.2.840.114 350.1.13.10 4.2.7.2.686 [id number] [facility] 2023-03-28 00:00:00 2023-03-28 00:00:00 Telephone Andrew [facility] 1.2.840.114 350.1.13.10 4.2.7.2.686 [id number] [facility] 2023-03-28 00:00:00 2023-03-28 00:00:00 Telephone Andrew Steven [facility] 1.2.840.114 350.1.13.10 4.2.7.2.686 [id number] [facility] 2023-03-26 13:00:00 2023-03-26 13:30:00 Office Visit Lynette Mcclure [facility] 1.2.840.114 350.1.13.10 4.2.7.2.686 [id number] [facility] 2023-03-26 13:00:00 2023-03-26 13:00:00 Outpatient LYNETTE HOPKINS [facility] [id number] [facility] 2023-03-20 08:15:00 2023-03-20 08:43:01 Outpatient R STEVEN MORALES [facility] [id number] [facility] 2023-03-20 08:15:00 2023-03-20 08:43:01 Office Visit Andrew [facility] 1.2.840.114 350.1.13.10 4.2.7.2.686 [id number] [facility] 2023-03-20 00:00:00 2023-03-20 00:00:00 Refill Steven Morales [facility] 1.114 350.1.13.10 4.2.7.2.686 [id number] [facility] 2023-03-20 00:00:00 2023-03-20 00:00:00 Patient Secure Msg Doctor Unassigned, [place] [facility] 1.114 350.1.13.10 4.2.7.2.686 [id number] [facility] 2023-03-19 00:00:00 2023-03-19 00:00:00 Refill Nina Worthington [facility] 1.114 350.1.13.10 4.2.7.2.686 [id number] [facility] 2023-03-15 00:00:00 2023-03-15 00:00:00 Patient Secure Msg Doctor Unassigned, [place] [facility] CENTER?[facility] MED[facility] OFF[facility] BUILDING 1.114 350.1.13.10 4.2.7.2.686 [id number] [facility] 2023-03-14 14:46:55 2023-03-14 23:59:00 Outpatient R SHERITA MAGAÑA [facility] [id number] [facility] 2023-03-14 14:46:55 2023-03-14 23:59:00 Hospital Encounter Sherita Magaña [facility] 1.114 350.1.13.10 4.2.7.2.686 [id number] [facility] 2023-03-14 16:00:00 2023-03-14 16:00:00 Outpatient SHERITA PALENCIA [facility] [id number] [facility] 2023-03-13 00:00:00 2023-03-13 00:00:00 Patient Secure Msg Doctor Unassigned, [place] [facility] 1.840.114 350.1.13.10 4.2.7.2.686 [id number] [id number] [facility] 2023-03-10 00:00:00 2023-03-10 00:00:00 Patient Secure Msg Doctor Unassigned, [place] [facility] 1.84.114 350.1.13.10 4.2.7.2.686 [id number] [id number] [facility] 2023-03-07 14:20:00 2023-03-07 14:40:00 Office Visit Nina Worthington [facility] 1.84.114 350.1.13.10 4.2.7.2.686 [id number] [facility] 2023-03-07 14:20:00 2023-03-07 14:20:00 Outpatient NINA BRUSH [facility] [id number] [facility] 2023-02-22 14:00:00 2023-02-22 14:20:00 [facility] 1.84.114 350.1.13.10 4.2.7.2.686 [id number] [facility] 2023-02-22 14:00:00 2023-02-22 14:00:00 Outpatient NINA BRUSH [facility] [id number] [facility] 2023-02-22 00:00:00 2023-02-22 00:00:00 Case Management Ean Gutierrez 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, Ang - Sherita Alvarado [facility] MEDICAL OFFICE BUILDING 1.2840.114 350.1.13.10 4.2.7.2.686 [id number] [facility] 2023-02-21 07:30:00 2023-02-21 08:29:43 Outpatient R SHERITA MAGAÑA [facility] [id number] [facility] 2023-02-21 07:30:00 2023-02-21 08:29:43 Office Visit Sherita Magaña Nelda [facility] MEDICAL OFFICE BUILDING 1.2840.114 350.1.13.10 4.2.7.2.686 [id number] 044 [id number] [facility] 2023-02-20 00:00:00 2023-02-20 00:00:00 [facility] 1.2840.114 350.1.13.10 4.2.7.2.686 [id number] [id number] [facility] 2023-02-19 14:27:00 2023-02-19 17:07:00 Emergency Andie Jose [facility] 1.2840.114 350.1.13.10 4.2.7.2.686 [id number] [facility] 2023-02-19 13:00:00 2023-02-19 13:47:05 Outpatient R BETTY SCHMITZ [facility] [id number] [facility] 2023-02-19 13:00:00 2023-02-19 13:47:05 Outpatient R BETTY SCHMITZ [facility] ERT [id number] [facility] 2023-02-19 13:00:00 2023-02-19 13:47:05 Office Visit Betty Schmitz [facility] 1.2.840.114 350.1.13.10 4.2.7.2.686 [id number] [id number] [facility] 2023-01-31 00:00:00 2023-01-31 00:00:00 Patient Secure Mig Doctor Unassigned, [place] [facility] MEDICAL OFFICE BUILDING 1.2.840.114 350.1.13.10 4.2.7.2.686 [id number] [id number] [facility] 2023 00:00:00 2023 00:00:00 Telephone Lalitha Mitchell [facility] BUILDING 1.2.840.114 350.1.13.10 4.2.7.2.686 [id number] [facility] 2023-01-02 00:00:00 2023-01-02 00:00:00 Transition of Care Doshi Jasmine SCHMIDT 1.2.840.114 350.1.13.10 4.2.7.2.686 [id number] [facility] 2023-01-02 00:00:00 2023-01-02 00:00:00 Patient Secure Msg Doctor Unassigned, [place] [facility] 1.2840.114 350.1.13.10 4.2.7.2.686 [id number] [facility] 2022-12-25 08:04:00 2022-12-29 10:52:00 Inpatient FLORIAN [facility] [id number] [facility] 2022-12-25 08:04:00 2022-12-29 10:52:00 Hospital Encounter Brittany MaldonadoFlorian [facility] 1.2840.114 350.1.13.10 4.2.7.2.686 [id number] [id number] [facility] 2022-12-19 00:00:00 2022-12-19 00:00:00 Telephone [facility] 1.2840.114 350.1.13.10 4.2.7.2.686 [id number] [facility] 2022-12-18 00:00:00 2022-12-18 00:00:00 Telephone Betty Schmitz [facility] RAMESH?[facility]elda [facility] MED[facility] OFF[facility] BUILD[facility] 1.284.114 350.1.13.10 4.2.7.2.686 [id number] [id number] [facility] 2022-12-06 00:00:00 2022-12-06 00:00:00 Telephone Lalitha Mitchell [facility] BUILDING 1.2840.114 350.1.13.10 4.2.7.2.686 [id number] [facility] 2022-12-02 00:00:00 2022-12-02 00:00:00 RefLeonela Merrill [facility] RAMESH?[facility] MED[facility] OFF[facility] BUILDING 1.2840.114 350.1.13.10 4.2.7.2.686 [id number] [id number] [facility] 2022-11-28 22:11:00 2022-11-28 23:54:00 Emergency X CED GYU [facility] ERT [id number] [facility] 2022-11-28 22:11:00 2022-11-28 23:54:00 Emergency Ced Guy A [facility] 1.2840.114 350.1.13.10 4.2.7.2.686 [id number] [id number] [facility] 2022-11-16 00:00:00 2022-11-16 00:00:00 Transition of Care Jasmine Doshi 1.2.840.114 350.1.13.10 4.2.7.2.686 [id number] [facility] 2022-11-13 01:12:00 2022-11-15 15:18:00 Inpatient X FLORIAN NGUYEN [facility] BERNARDA [id number] [facility] 2022-11-13 01:12:00 2022-11-15 15:18:00 Hospital Encounter Wili Chauhan David Edionwe [facility] 1.2840.114 350.1.13.10 4.2.7.2.686 [id number] [id number] [facility] 2022-11-09 00:00:00 2022-11-09 00:00:00 Telephone Lalitha Mitchell [facility] 1.2840.114 350.1.13.10 4.2.7.2.686 [id number] [facility] 2022-11-06 00:00:00 2022-11-06 00:00:00 Pre Visit Outreach Louie Mensah [facility] 1.2840.114 350.1.13.10 4.2.7.2.686 [id number] [id number] [facility] 2022-11-03 00:00:00 2022-11-03 00:00:00 Telephone [facility]itha Mitchell [facility] 1.2840.114 350.1.13.10 4.2.7.2.686 [id number] [facility] 2022-10-24 11:00:00 2022-10-24 11:32:51 Outpatient R BETTY SCHMITZ [facility] [id number] [facility] 2022-10-24 11:00:00 2022-10-24 11:32:51 Office Visit Gordy [facility]Replaced by [facility] 1.2840.114 350.1.13.10 4.2.7.2.686 [id number] 044 [id number] [facility] 2022-10-24 00:00:00 2022-10-24 00:00:00 Transition of Care Jasmine Doshi DOMONIQUE SCHMIDT 1.2840.114 350.1.13.10 4.2.7.2.686 [id number] [facility] 2022-10-22 08:38:00 2022-10-23 14:35:00 [facility] [id number] [facility] 2022-10-22 08:38:00 2022-10-23 14:35:00 Emergency JamelissasMatthew [facility] 1.0.114 350.1.13.10 4.2.7.2.686 [id number] [id number] [facility] 2022-10-19 00:00:00 2022-10-19 00:00:00 Eric Ahmadi [facility] 1.20.114 350.1.13.10 4.2.7.2.686 [id number] [id number] [facility] 2022-10-18 00:00:00 2022-10-18 00:00:00 Transition of Care Jasmine Doshi 1.2840.114 350.1.13.10 4.2.7.2.686 [id number] [facility] 2022-10-15 06:20:00 2022-10-17 14:31:00 Inpatient X FLORIAN NGUYEN [facility] BERNARDA [id number] [facility] 2022-10-15 06:20:00 2022-10-17 14:31:00 Hospital Encounter Wili Chauhan David [facility] 1..114 350.1.13.10 4.2.7.2.686 [id number] [id number] [facility] 2022-10-02 07:55:00 2022-10-02 12:12:00 Emergency X [facility] ERT [id number] [facility] 2022-10-02 07:55:00 2022-10-02 12:12:00 Emergency Jayesh Goddard [facility] 1..114 350.1.13.10 4.2.7.2.686 [id number] [id number] [facility] 2022-09-19 00:00:00 2022-09-19 00:00:00 Transition of Care Joel Oswald [facility] 1..114 350.1.13.10 4.2.7.2.686 [id number] [facility] 2022-09-17 00:49:00 2022-09-18 11:15:[address] [facility] [id number] [facility] 2022-09-17 00:49:00 2022-09-18 11:15:00 Hospital Encounter GoddardJayesh Yaman Edionwe, [facility] 1..114 350.1.13.10 4.2.7.2.686 [id number] [id number] [facility] 2022-09-06 00:00:00 2022-09-06 00:00:00 Eric Ahmadi [facility] 1.2.840.114 350.1.13.10 4.2.7.2.686 [id number] [facility] ity [facility] 2022-08-20 17:34:00 2022-08-20 20:40:00 Emergency X Osiris SMITH [facility] ERT [id number] [facility] ity [facility] 2022-08-20 17:34:00 2022-08-20 20:40:00 Emergency Osiris Smith Nancy [facility] 1.2840.114 350.1.13.10 4.2.7.2.686 [id number] [id number] [facility] 2022-07-26 00:00:00 2022-07-26 00:00:00 Telephone MoralesSteven [facility] MEDICAL OFFICE BUILDING 1.2840.114 350.1.13.10 4.2.7.2.686 [id number] 044 [id number] [facility] 2022-07-12 00:00:00 2022-07-12 00:00:00 Telephone TomvickichristiEric [facility] MEDICAL OFFICE BUILDING 1.2840.114 350.1.13.10 4.2.7.2.686 [id number] [id number] [facility] 2022-06-30 00:00:00 2022-06-30 00:00:00 Nurse Triage Imtiaz May [facility] 1.2840.114 350.1.13.10 4.2.7.2.686 [id number] [id number] [facility] [place] [facility] 2022-06-30 00:00:00 2022-06-30 00:00:00 Nurse Triage Betty Schmitz [facility] MEDICAL OFFICE BUILDING 1.2840.114 350.1.13.10 4.2.7.2.686 [id number] [id number] [facility] [place] [facility] 2022-05-29 03:06:00 2022-05-29 05:45:00 Emergency X JUDIE GARCIA [facility] ERT [id number] [facility] 2022-05-29 03:06:00 2022-05-29 05:45:00 Emergency Judie Garcia S [facility] 1.2.840.114 350.1.13.10 4.2.7.2.686 [id number] [id number] [facility] 2022-05-23 13:00:00 2022-05-23 13:41:20 Outpatient R YASMINLEONELA Lutz [facility] [id number] [facility] 2022-05-23 13:00:00 2022-05-23 13:41:20 Office Visit Abdon Leonela [facility] MEDICAL OFFICE BUILDING 1.2840.114 350.1.13.10 4.2.7.2.686 [id number] [id number] [facility] 2022-05-22 00:00:00 2022-05-22 00:00:00 Telephone Betty Schmitz [facility] BU[facility] 1.2.840.114 350.1.13.10 4.2.7.2.686 [id number] [id number] [facility] 2022-04-29 00:00:00 2022-04-29 00:00:00 Refill Andrew [facility] MED[facility] OFF[facility] BUILDING 1.2.840.114 350.1.13.10 4.2.7.2.686 [id number] [id number] [facility] 2022-04-28 00:00:00 2022-04-28 00:00:00 Telephone Morales, [facility] RAMESH[facility] MED[facility] OFF[facility] BUILD[facility] 1.2.840.114 350.1.13.10 4.2.7.2.686 [id number] 044 [id number] [facility] 2022-04-24 00:00:00 2022-04-24 00:00:00 Refill Steven [facility] BU[facility] 1.2840.114 350.1.13.10 4.2.7.2.686 [id number] 044 [id number] [facility] 2022-01-23 00:00:00 2022-01-23 00:00:00 [facility] MEDICAL OFFICE BUILDING 1.2840.114 350.1.13.10 4.2.7.2.686 [id number] 044 [id number] [facility] 2022-01-19 00:00:00 2022-01-19 00:00:00 Refill Betty [facility]mitz [facility] MEDICAL OFFICE BUILDING 1.2840.114 350.1.13.10 4.2.7.2.686 [id number] [id number] [facility] 2021-10-19 00:00:00 2021-10-19 00:00:00 Refill [facility] MEDICAL OFFICE BUILDING 1.2840.114 350.1.13.10 4.2.7.2.686 [id number] 044 [id number] [facility] 2021-10-19 00:00:00 2021-10-19 00:00:00 [facility] MEDICAL OFFICE BUILDING 1.2840.114 350.1.13.10 4.2.7.2.686 [id number] [id number] [facility] 2021-10-14 00:00:00 2021-10-14 00:00:00 Patient Outreach Areli Lorenzana 1.2840.114 350.1.13.10 4.2.7.2.686 [id number] [facility] 2021-08-08 00:00:00 2021-08-08 00:00:00 Patient Outreach Areli Lorenzana [facility] 1.20.114 350.1.13.10 4.2.7.2.686 [id number] [facility] 2021-08-01 11:00:00 2021-08-01 11:59:38 [facility] 1.2.114 350.1.13.10 4.2.7.2.686 [id number] [id number] [facility] 2021-08-01 11:00:00 2021-08-01 11:59:38 [facility] [id number] 2021-08-01 11:00:00 2021-08-01 11:00:00 [facility] [id number] [facility] 2021-07-28 00:00:00 2021-07-28 00:00:00 Transition of Care Ashlee Song DOMONIQUE SCHMIDT 1.2.114 350.1.13.10 4.2.7.2.686 [id number] [facility] 2021-07-12 03:59:00 2021-07-27 12:44:00 Hospital Encounter Elsie Ramos Robin Patel, Rusty [facility] ([facility] 1.20.114 350.1.13.10 4.2.7.2.686 [id number] [facility] 2021-07-27 00:00:00 2021-07-27 00:00:00 Transition of Care Ashlee SongKely DEJESUSSHELLI 1.2840.114 350.1.13.10 4.2.7.2.686 [id number] [facility] 2021-07-26 07:15:00 2021-07-26 08:19:00 Surgery Onel Segundo [facility] ([facility]) 1.2.840.114 350.1.13.10 4.2.7.2.686 [id number] [id number] [facility] 2021-07-22 12:00:00 2021-07-22 13:54:00 Surgery Fuentes Cabrera [facility] ([facility]) 1.2.840.114 350.1.13.10 4.2.7.2.686 [id number] [id number] [facility] 2021-07-11 23:33:00 2021-07-12 00:16:00 Emergency X SANCHEZ, RUSTY SANCHEZ, RUSTY [facility] ERT [id number] [facility] 2021-07-11 23:33:00 2021-07-12 00:16:00 Emergency X [facility] ERT [id number] [facility] 2021-07-11 23:33:00 2021-07-12 00:16:00 Emergency [facility] 1.2.840.114 350.1.13.10 4.2.7.2.686 [id number] [facility] 2021-07-11 23:33:00 2021-07-12 00:16:00 Emergency X SANCHEZ, RUSTY SANCHEZ, RUSTY [facility] ERT [id number] [facility] 2021-06-13 14:15:00 2021-06-13 14:30:00 Office Visit Steven Morales [facility] LEXIE CHANDLER?[facility] 1.2.840.114 350.1.13.10 4.2.7.2.686 [id number] [facility] 2021-06-13 14:15:00 2021-06-13 14:15:00 Outpatient R STEVEN MORALES [facility] [id number] [facility] 2021-06-07 12:30:00 2021-06-07 18:32:00 Emergency X MASSIMO BARRON [facility] ERT [id number] [facility] 2021-06-07 12:30:00 2021-06-07 18:32:00 Emergency Massimo Barron [facility] 1.2.840.114 350.1.13.10 4.2.7.2.686 [id number] [facility] 2021-05-21 05:31:00 2021-05-21 05:54:00 Emergency JAYESH RHOADES [facility] ERT [id number] [facility] 2021-05-21 05:31:00 2021-05-21 05:54:00 Emergency Jayesh Goddard [facility] 1.2.840.114 350.1.13.10 4.2.7.2.686 [id number] [facility] 2021-05-21 00:00:00 2021-05-21 00:00:00 Orders Only Doctor Unassigned, [place] [facility] 1.2.840.114 350.1.13.10 4.2.7.2.686 [id number] [facility] 2021-04-29 00:00:00 2021-04-29 00:00:00 Patient Secure Msg Doctor Unassigned, [place] [facility] 1.2.840.114 350.1.13.10 4.2.7.2.686 [id number] [id number] [facility] 2021-04-29 00:00:00 2021-04-29 00:00:00 Patient Secure Msg Doctor Unassigned, [place] [facility] 1.2.840.114 350.1.13.10 4.2.7.2.686 [id number] [facility] 2021-04-20 11:40:00 2021-04-20 23:59:00 Outpatient SHERITA PALENCIA [facility] [id number] [facility] 2021-04-20 11:40:00 2021-04-20 23:59:00 Hospital Encounter Sherita Magaña [facility] 1.284.114 350.1.13.10 4.2.7.2.686 [id number] [facility] 2021-04-20 12:45:00 2021-04-20 13:00:00 Office Visit Morales Steven [facility] 1.84.114 350.1.13.10 4.2.7.2.686 [id number] 044 [id number] [facility] 2021-04-20 12:45:00 2021-04-20 12:45:00 Outpatient R MORALES STEVEN [facility] [id number] [facility] 2021-04-20 12:00:00 2021-04-20 12:15:00 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 Champ, Nathanael Ohara Sherita Magaña [facility] RAMESH?[facility] OFF[facility] BUILD[facility] 1.84.114 350.1.13.10 4.2.7.2.686 [id number] [facility] 2021-04-20 11:00:00 2021-04-20 11:32:48 Office Visit Sherita Magaña [facility] BU[facility] 1.284.114 350.1.13.10 4.2.7.2.686 [id number] [id number] [facility] 2021-04-20 11:00:00 2021-04-20 11:32:48 Outpatient R ADIA MAGAÑALIE [facility] [id number] [facility] 2021-02-28 00:00:00 2021-02-28 00:00:00 Patient Outreach Ewa Danielle [facility] 1.284.114 350.1.13.10 4.2.7.2.686 [id number] [id number] [facility] 2021-02-24 16:05:54 2021-02-24 16:20:54 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 Pob, [facility] Main Betty Schmitz [facility] NAL BUILDING 1.840.114 350.1.13.10 4.2.7.2.686 [id number] [facility] 2021-02-24 16:00:00 2021-02-24 16:00:00 Outpatient R BETTY SCHMITZ [facility] [id number] [facility] 2021-02-24 15:00:00 2021-02-24 15:32:21 Outpatient R BETTY SCHMITZ [facility] [id number] [facility] 2021-02-24 14:58:18 2021-02-24 15:32:21 [facility] 1.84.114 350.1.13.10 4.2.7.2.686 [id number] [facility] 2021-02-24 15:00:00 2021-02-24 15:00:00 Outpatient R BETTY SCHMITZ [facility] [id number] [facility] 2021-02-24 00:00:00 2021-02-24 00:00:00 Orders Only Doctor Unassigned, [place] [facility] 1..114 350.1.13.10 4.2.7.2.686 [id number] [facility] 2021-02-21 00:00:00 2021-02-21 00:00:00 [facility] 1.840.114 350.1.13.10 4.2.7.2.686 [id number] [facility] 2021-02-18 00:00:00 2021-02-18 00:00:00 [facility] 1.2.840.114 350.1.13.10 4.2.7.2.686 [id number] [facility] 2021-01-20 00:00:00 2021-01-20 00:00:00 Letter (Out) Ashlee Cho [facility] 1..840.114 350.1.13.10 4.2.7.2.686 [id number] [facility] 2021-01-19 15:56:31 2021-01-19 16:11:31 Laboratory Only Only, Adc Test Nghia Nate A [facility] 1..840.114 350.1.13.10 4.2.7.2.686 [id number] [facility] 2021-01-19 16:00:00 2021-01-19 16:00:00 Outpatient R NATE SANCHEZ [facility] [id number] [facility] 2021-01-18 13:00:00 2021-01-18 13:00:00 Outpatient R AINSLEYNEGARBETTY [facility] [id number] [facility] 2021-01-11 14:57:17 2021-01-11 15:33:27 [facility]ena [facility] 1.2.840.114 350.1.13.10 4.2.7.2.686 [id number] [facility] 2021-01-11 15:00:00 2021-01-11 15:00:00 Outpatient R AINSLEYNEGARBETTY [facility] [id number] [facility] 2021-01-11 00:00:00 2021-01-11 00:00:00 Orders Only Doctor Unassigned, [place] [facility] 1.114 350.1.13.10 4.2.7.2.686 [id number] [facility] 2021-01-11 00:00:00 2021-01-11 00:00:00 Orders Only Doctor Unassigned, [place] [facility] 1.114 350.1.13.10 4.2.7.2.686 [id number] [facility] 2021-01-07 15:07:29 2021-01-07 16:49:47 Urgent Care Lynette Ferraro Unknown, Attending [facility]?Malena shannon [facility] Building 1..114 350.1.13.10 4.2.7.2.686 [id number] [facility] 2021-01-07 16:20:00 2021-01-07 16:20:00 Outpatient R UNKNOWN, ATTENDING [facility] [id number] [facility] 2020-07-11 13:08:00 2020-07-11 13:38:00 [facility] Visit Mandie Duff Unknown, Attending [facility] 1..114 350.1.13.10 4.2.7.2.686 [id number] [facility] 2020-07-11 13:30:00 2020-07-11 13:30:00 Outpatient R UNKNOWN, ATTENDING [facility] [id number] [facility] 2020-07-11 00:00:00 2020-07-11 00:00:00 Nurse Triage Christiana Madrid [facility] 1..114 350.1.13.10 4.2.7.2.686 [id number] [facility] 2020-07-10 00:00:00 2020-07-10 00:00:00 Patient Outreach Gonzalo Cardoza [facility] 1.2.840.114 350.1.13.10 4.2.7.2.686 [id number] [facility] 2019-08-10 15:00:00 2019-08-10 15:00:00 Outpatient R POLO HARRIS [facility] [id number] [facility] 2019-08-08 21:24:00 2019-08-09 00:05:00 Emergency Elsie Ramos [facility] 1.2840.114 350.1.13.10 4.2.7.2.686 [id number] [facility] 2019-08-08 21:24:00 2019-08-09 00:05:00 Emergency X ELSIE RAMOS [facility] E[facility] [id number] [facility] 2019-07-21 00:00:00 2019-07-21 00:00:00 Letter (Out) Sherita Magaña [facility] Office Building [address] 1.114 350.1.13.10 4.2.7.2.686 [id number] [facility] 2019-07-16 09:50:52 2019-07-16 13:49:00 Emergency Matthew Monge [facility] 1.840.114 350.1.13.10 4.2.7.2.686 [id number] [facility] 2019-07-16 09:50:52 2019-07-16 13:49:00 Emergency X MATTHEW MONGE [facility] ERT [id number] [facility] 2019-07-16 08:40:00 2019-07-16 13:05:28 Outpatient R SHERITA MAGAÑA [facility] [id number] [facility] 2019-07-16 08:39:54 2019-07-16 08:59:54 Office Visit Pob1, Acute Care Clinic Sherita Magaña [facility] Office [address] 1.114 350.1.13.10 4.2.7.2.686 [id number] [facility] 2019-07-16 08:40:00 2019-07-16 08:40:00 Outpatient R [facility] [id number] [facility] Results Test Description Test Time Test Comments Results Result Co mments Source [facility] [id number] 22:02:09* Test Item Value Reference Range Interpretation Comme nts Blood Culture-Aerobic (test code = 48841-7) No organisms isolated No growth Previous preliminary verified result was Order in Process on 07/21/2024 at 2000 CDTPrevious preliminary verified result was No growth at 24 hours on 07/22/2024 at 1702 CDTPrevious preliminary verified result was No growth at 48 hours on 07/23/2024 at 1701 CDTPrevious preliminary verified result was No growth at 72 hours on 07/24/2024 at 1702 CDT Blood Culture-Anaerobic (test code = 17800-0) No organisms isolated No growth Previous preliminary verified result was Order in Process on 07/21/2024 at 2000 CDTPrevious preliminary verified result was No growth at 24 hours on 07/22/2024 at 1702 CDTPrevious preliminary verified result was No growth at 48 hours on 07/23/2024 at 1701 CDTPrevious preliminary verified result was No growth at 72 hours on 07/24/2024 at 1702 CDT Lab Interpretation (test code = 28527-0) Normal [facility] CenterCT [facility] pulmonary [id number] 21:40:09EXAM: CT CHEST PULMONARY ANGIOGRAM HISTORY: eval for PE COMPARISON: Chest CT from March 03, 2024 TECHNIQUE: ?A chest CT was obtained from the thoracic inlet to the base ofthe lungs during pulmonaryarterial phase per CT PE protocol afteruncomplicated administration of 80 mL of Omnipaque IV contrast. FINDINGS: No hypodense filling defects are seen within the pulmonary trunk, mainpulmonary arteries, or segmental branches. Thickening of the right bronchus intermedius with luminal narrowing. Thereis soft tissue within the right lower and middle lobe segmental andsubsegmental bronchi suggesting because plugging. Peribronchovascular, peripherally predominant nodular opacities in theright lower and middle lobes, increased from previous exam is a rightmiddle lobe. There is associated bronchiectasis. Diffuse backgroundemphysematous changes. Biapical scarring. No evidence of pleural effusion orpneumothorax is noted. ? The thyroid gland, trachea, and main bronchi are unremarkable. The heart is normal in size with no pericardial effusion present. The greatvessels are unremarkable. The limited evaluation of the visualized upper abdomen appears normal. Right hilar 1.3 cm lymph node, likely reactive. Subcarinal lymph node isunchanged also likely reactive. No destructive osseous lesion. Remote leftposterior seventh rib fracture.[facility] CenterXR Chest 1 [id number] 21:32:57EXAM: XR CHEST 1 07/21/2024 4:20 PM HISTORY: 64 years-old Male with eval for pneumonia . TECHNIQUE: Portable AP view of the chest. COMPARISON: 07/08/2024 FINDINGS: Lines and tubes: None. Cardiomediastinal: The cardiomediastinal silhouette is unremarkable. Lungs and pleura: The lungs are hyperinflated. Emphysematous change againnoted. Interstitial and reticulonodular opacities with peribronchialthickening, most pronounced at the right infrahilar lung are similar toprevious exam. Blunting of thecostophrenic angles is unchanged and may betrace pleural thickening. Included osseous structures show no acute abnormality.[facility] CenterTroponin [id number] 21:28:34* Test Item Value Reference Range Interpretation Comme nts TROPONIN I (test code = 0313267503) 0.007 ng/mL <=0.034 ROSEANN (test code = ROSEANN) [...] of biotin. Lab Interpretation (test code = 10332-3) Normal [facility]inal Zrz-[id number] 21:25:57* Test Item Value Reference Range Interpretation Comme nts NT-proBNP (test code = 55308-4) 68 pg/mL <=125 Lab Interpretation (test cod e = 04724-7) Normal [facility]. Metabolic Panel (33926)2024-07-21 21:18:16* Test Item Value Reference Range Interpretation Comme nts NA (test code = 8628139955) 142 mmol/L 135-145 K (test code = 6103969622) 4.5 mmol/L 3.5-5.0 CL (test code = 2371016662) 103 mmol/L 98-108 CO2 TOTAL (test code = 3516178760) 35 mmol/L 23-31 H AGAP (test code = 9465587724) 4 2-16 BUN (test code = 8146316729) 12 mg/dL 7-23 GLUCOSE (test code = 8526548136) 114 mg/dL 70-110 H CREATININE (test code = 2160-0) 0.66 mg/dL 0.60-1.25 TOTAL BILI (test code = 7940331825) 0.7 mg/dL 0.1-1.1 CALCIUM (test code = 5937010735) 9.7 mg/dL 8.6-10.6 T PROTEIN (test code = 9277816015) 7.1 g/dL 6.3-8.2 ALBUMIN (test code = 0255293692) 4.2 g/dL 3.5-5.0 ALK PHOS (test code = 5167962573) 116 U/L 34-122 ALTv (test code = 1742-6) 21 U/L 5-50 AST(SGOT) (test code = 3542063738) 37 U/L 13-40 eGFR (test code = 89848-5) 105.4 mL/min/1.73m2 CKD-EPI eGFR (2020). Assuming creatinine has been stable day-to-day for at least three months, the eGFR indicates Category G1 (>= 90 mL/min/1.73 m2) Lab Interpretation (test code = 60063-2) Abnormal [facility] with [id number] 21:00:53* Test Item Value Reference Range Interpretation Comme nts WBC (test code = 6690-2) 15.55 4.20-10.70 H RBC (test code = 789-8) 4.59 4.26-5.52 HGB (test code = 718-7) 14.4 g/dL 12.2-16.4 HCT (test code = 4544-3) 45.1 % 38.4-49.3 MCV (test code = 787-2) 98.3 fL 81.7-95.6 H MCH (test code = 785-6) 31.4 pg 26.1-32.7 MCHC (test code = 786-4) 31.9 g/dL 31.2-35.0 RDW-SD (test code = 48511-5) 50.5 fL 38.5-51.6 RDW-CV (test code = 788-0) 14.0 % 12.1-15.4 PLT (test code = 777-3) 466 150-328 H MPV (test code = 00276-1) 10.0 fL 9.8-13.0 NRBC/100 WBC (test code = 4558403552) 0.0 0.0-10.0 NRBC x10^3 (test code = 0101948780) See_Comment [Automated message] The system which generated this result transmitted reference range: 10*3/?L. The reference range was not used to interpret this result as normal/abnormal. GRAN MAT (NEUT) % (test code = 770-8) 76.1 % IMM GRAN % (test code = 5962266711) 0.60 % LYMPH % (test code = 736-9) 12.2 % MONO % (test code = 5905-5) 6.2 % EOS % (test code = 713-8) 4.6 % BASO % (test code = 706-2) 0.3 % GRAN MAT x10^3(ANC) (test code = 5321523569) 11.85 10*3/uL 1.99-6.95 H IMM GRAN x10^3 (test code = 1446424606) 0.09 10*3/uL 0.00-0.06 H LYMPH x10^3 (test code = 731-0) 1.89 10*3/uL 1.09-3.23 MONO x10^3 (test code = 742-7) 0.96 10*3/uL 0.36-1.02 EOS x10^3 (test code = 711-2) 0.71 10*3/uL 0.06-0.53 H BASO x10^3 (test code = 704-7) 0.05 10*3/uL 0.01-0.09 Lab Interpretation (test code = 34917-3) Abnormal [facility] CenterCT THORAX W [id number] 07:27:47Exam: CT Chest With Contrast, 03/03/2024 12:00 PM. Ordering Physician: LUPE BRANNON. History: Pneumonia, complication suspected, xray done . Comparison: Chest radiograph 03/01/2024. Technique: CTchest was obtained with contrast. ?CT was performed accordingto ALARA (As Low As Reasonably Achievable). Technical Quality: Adequate. Findings: Lower neck: The visualized thyroid is unremarkable. No lymphadenopathy. Pulmonary: Moderate emphysema. No pleural effusion. Regions of ydcl-uq-tmxibclywwxmu with bronchial wall thickening and mucous plugging mostpronounced in the right lower lobe area no pulmonary mass. Resolution ofpreviously described left lower lobe 7 and 10 mm nodules. Right upper lo benodule measuring 5 mm is stable from prior. Central airways are patent. Cardiomediastinal: Normalheart size. No pericardial effusion. Normalcaliber of the aorta. No evidence of a central pulmonaryembolus. Prominentmediastinal and hilar lymph nodes which are likely reactive. Upper Abdomen: No acute finding in the visualized upper abdomen. Osseous: No acute osseous finding.[facility] CenterXR CHEST 1 [id number] 22:35:03EXAM: XR CHEST 1 VW COMPARISON: Chest x-ray on 12/01/2023 HISTORY: sob FINDINGS: Lungs: Persistent lar ge lung volumes with sparing of bronchovascularbundles. Coarse background reticular opacities. New reticulonodular-nodularopacities involving mid to lower lung zone, worse on the right. Blunting ofbilateral costophrenic angles secondary to fat pad. No pneumothorax. Heart/Mediastinum: The cardiac silhouette appears normal accounting fortechnique and degree of inspiration. Bones and soft tissues: Mild bilateral acromioclavicular osteoarthrosis isnoted. Bony remodeling of the posterior left seventh rib is visualized. Noacute osseous abnormality is visualized.[facility] with Diff 2024-03-01 13:52:53* Test Item Value Reference Range Interpretation Comme nts WBC (test code = 6690-2) 18.57 4.20-10.70 H RBC (test code = 789-8) 4.76 4.26-5.52 HGB (test code = 718-7) 15.1 g/dL 12.2-16.4 HCT (test code = 4544-3) 46.6 % 38.4-49.3 MCV (test code = 787-2) 97.9 fL 81.7-95.6 H MCH (test code = 785-6) 31.7 pg 26.1-32.7 MCHC (test code = 786-4) 32.4 g/dL 31.2-35.0 RDW-SD (test code = 83480-0) 50.1 fL 38.5-51.6 RDW-CV (test code = 788-0) 13.8 % 12.1-15.4 PLT (test code = 777-3) 414 150-328 H MPV (test code = 51041-2) 9.1 fL 9.8-13.0 L NRBC/100 WBC (test code = 1868768325) 0.0 0.0-10.0 NRBC x10^3 (test code = 1167464503) See_Comment [Automated message] The system which generated this result transmitted reference range: 10*3/?L. The reference range was not used to interpret this result as normal/abnormal. GRAN MAT (NEUT) % (test code = 770-8) 89.5 % IMM GRAN % (test code = 6071271629) 0.50 % LYMPH % (test code = 736-9) 3.8 % MONO % (test code = 5905-5) 5.0 % EOS % (test code = 713-8) 0.7 % BASO % (test code = 706-2) 0.5 % GRAN MAT x10^3(ANC) (test code = 5417969188) 16.62 10*3/uL 1.99-6.95 H IMM GRAN x10^3 (test code = 9294924480) 0.10 10*3/uL 0.00-0.06 H LYMPH x10^3 (test code = 731-0) 0.70 10*3/uL 1.09-3.23 L MONO x10^3 (test code = 742-7) 0.93 10*3/uL 0.36-1.02 EOS x10^3 (test code = 711-2) 0.13 10*3/uL 0.06-0.53 BASO x10^3 (test code = 704-7) 0.09 10*3/uL 0.01-0.09 Lab Interpretation (test code = 00597-6) Abnormal [facility] CenterTroponin [id number] 13:12:53* Test Item Value Reference Range Interpretation Comme nts TROPONIN I (test code = 3579931871) <=0.034 ROSEANN (test code = ROSEANN) Reference [...] of biotin. Lab Interpretation (test code = 26748-9) Normal [facility]-Terminal Iuh-[id number] 13:10:13* Test Item Value Reference Range Interpretation Comme nts NT-proBNP (test code = 51669-2) 71 pg/mL <=125 Lab Interpretation (test cod e = 35950-2) Normal [facility] CenterComp. Metabolic Panel (40989)2024-03-01 13:02:36* Test Item Value Reference Range Interpretation Comme nts NA (test code = 0983797220) 134 mmol/L 135-145 L K (test code = 2533236040) 4.6 mmol/L 3.5-5.0 CL (test code = 6299166759) 95 mmol/L 98-108 L CO2 TOTAL (test code = 2030528861) 36 mmol/L 23-31 H AGAP (test code = 8121030901) 3 2-16 BUN (test code = 7862720344) 11 mg/dL 7-23 GLUCOSE (test code = 2826148601) 123 mg/dL 70-110 H CREATININE (test code = 2160-0) 0.80 mg/dL 0.60-1.25 TOTAL BILI (test code = 1762115649) 0.5 mg/dL 0.1-1.1 CALCIUM (test code = 9973353729) 9.4 mg/dL 8.6-10.6 T PROTEIN (test code = 4722308925) 7.4 g/dL 6.3-8.2 ALBUMIN (test code = 0200868148) 4.3 g/dL 3.5-5.0 ALK PHOS (test code = 7545926391) 142 U/L 34-122 H ALTv (test code = 1742-6) 11 U/L 5-50 AST(SGOT) (test code = 7585219716) 16 U/L 13-40 eGFR (test code = 25449-0) 99.4 mL/min/1.73m2 CKD-EPI eGFR (2020). Assuming creatinine has been stable day-to-day for at least three months, the eGFR indicates Category G1 (>= 90 mL/min/1.73 m2) Lab Interpretation (test code = 61204-4) Abnormal [facility] 1 [id number] 17:13:36Chest X-Ray Indication: shortness of breath ? Technique: Frontal view(s) of the chest submitted forinterpretation. Comparison: October 25, 2023 RL: 03788 Ordering Clinician: AJAY ALVAREZ Technical Quality: Adequate Findings: No consolidation or effusion. ?No acute mediastinal abnormality. ?No a cutefractures.[facility] CenterPOCT GLUCOSE (AUTOMATED) 2023-10-27 17:30:55* Test Item Value Reference Range Interpretation Comme nts POCT GLU (test code = 3913956548) 172 mg/dL 70-110 H Lab Interpretation (test cod e = 45197-3) Abnormal [facility] CenterSputum [id number] 06:22:58* Test Item Value Reference Range Interpretation Comme nts SPUTUM CULTURE (test code = 622-1) Specimen cellular elements do not represent lower respiratory tract. Specimen rejected for routine bacterial culture. Suggest reorder and recollection. Gram stain (test code = 664-3) Moderate Epithelial cells [facility] CenterPODC GLUCOSE (AUTOMATED)2023-10-26 13:40:05* Test Item Value Reference Range Interpretation Comme nts POCT GLU (test code = 8352875331) 130 mg/dL 70-110 H Lab Interpretation (test cod e = 82816-3) Abnormal [facility] CenterProcalcitonin2024-06-28 10:23:13* Test Item Value Reference Range Interpretation Comme [facility] Procalcitonin (test code = 3849753645) 0.05 ng/mL <=0.07 ROSEANN (test code = ROSEANN) INTERPRETATION OF [...] lung abscess/empyema. For further information please refer to:[email or web address] Lab Interpretation (test code = 30812-0) Normal [facility] CenterProthrombin Time / [id number] 09:51:03* Test Item Value Reference Range Interpretation Comme [facility] PROTIME PATIENT (test code = 5964-2) 10.8 10.1-12.6 INR (test code = 6301-6) 1.0 Normal INR <1.1; Warfarin Therapeutic range 2.0 to 3.0 or 2.5 to 3.5, depending upon the indications. Lab Interpretation (test code = 79180-2) Normal [facility] CenterGlycosylated Hemoglobin (A1C)2023-10-26 06:46:05* Test Item Value Reference Range Interpretation Comme [facility] HGB A1C (test code = 4548-4) 6.1 % 4.0-5.7 H ROSEANN (test code = ROSEANN) Reference RangesNormal: <5.7%Prediabetes: 5.7 - 6.4%Diabetes: > 6.5% Lab Interpretation (test code = 24415-9) Abnormal [facility] CenterLipid Panel (52742)(Total Cholesterol, Triglycerides, HDL)2023-10-26 06:35:44* Test Item Value Reference Range Interpretation Comme nts CHOL (test code = 5931541202) 176 mg/dL 120-200 HDL (test code = 3377542281) 55 mg/dL >=40 HDLC RATIO (test code = 5974657843) 3.2 <=5.0 TRIG (test code = 6870626222) 104 mg/dL 30-170 LDL CHOL (test code = 99343-3) 100 mg/dL <=160 VLDL (test code = 1245576458) 21 mg/dL 5-60 Lab Interpretation (test cod e = 75318-4) Normal [facility] CenterCb with [id number] 02:47:04* Test Item Value Reference Range Interpretation Comme nts WBC (test code = 6690-2) 11.59 4.20-10.70 H RBC (test code = 789-8) 4.46 4.26-5.52 HGB (test code = 718-7) 13.9 g/dL 12.2-16.4 HCT (test code = 4544-3) 43.8 % 38.4-49.3 MCV (test code = 787-2) 98.2 fL 81.7-95.6 H MCH (test code = 785-6) 31.2 pg 26.1-32.7 MCHC (test code = 786-4) 31.7 g/dL 31.2-35.0 RDW-SD (test code = 33972-8) 58.3 fL 38.5-51.6 H RDW-CV (test code = 788-0) 16.1 % 12.1-15.4 H PLT (test code = 777-3) 332 150-328 H MPV (test code = 19720-8) 9.6 fL 9.8-13.0 L NRBC/100 WBC (test code = 4068492040) 0.0 0.0-10.0 NRBC x10^3 (test code = 5319251703) See_Comment [Automated message] The system which generated this result transmitted reference range: 10*3/?L. The reference range was not used to interpret this result as normal/abnormal. SEG % (test code = 71908-0) 85 % 33-76 H BAND % (test code = 15240-9) 10 % 0-1 H LYMPH % (test code = 69340-2) 4 % 14-54 L MONO % (test code = 72895-3) 1 % 0-4 ANC (test code = 753-4) 11.01 10*3/uL 1.99-6.95 H HJ BODIES (test code = 7793-3) Present A TOXIC CHANGES (test code = 803-7) Present A Lab Interpretation (test code = 48640-8) Abnormal [facility] CenterN-Terminal Hpv-Aaf1495-68-28 02:28:29* Test Item Value Reference Range Interpretation Comme nts NT-proBNP (test code = 65279-3) <=125 Lab Interpretation (test cod e = 45510-9) Normal [facility] CenterTroponin [id number] 02:25:02* Test Item Value Reference Range Interpretation Comme nts TROPONIN I (test code = 8482560577) <=0.034 ROSEANN (test code = ROSEANN) Reference [...] of biotin. Lab Interpretation (test code = 94299-8) Normal [facility] Metabolic Panel (NA, K, CL, CO2, GLUCOSE, BUN, CREATININE, CA)2023-10-26 02:14:41* Test Item Value Reference Range Interpretation Comme nts NA (test code = 3963749616) 134 mmol/L 135-145 L K (test code = 9792157452) 4.2 mmol/L 3.5-5.0 CL (test code = 9612975838) 97 mmol/L 98-108 L CO2 TOTAL (test code = 2902568078) 34 mmol/L 23-31 H AGAP (test code = 2364333454) 3 2-16 BUN (test code = 1010615078) 9 mg/dL 7-23 GLUCOSE (test code = 3697856463) 245 mg/dL 70-110 H CREATININE (test code = 2160-0) 0.67 mg/dL 0.60-1.25 CALCIUM (test code = 2651550316) 8.3 mg/dL 8.6-10.6 L eGFR (test code = 47944-9) 105.6 mL/min/1.73m2 CKD-EPI eGFR (2020). Assuming creatinine has been stable day-to-day for at least three months, the eGFR indicates Category G1 (>= 90 mL/min/1.73 m2) Lab Interpretation (test code = 98672-9) Abnormal [facility] 1 [id number] 23:15:55INDICATION: ?SOB, Hypoxemia ORDERING PROVIDER: ?JULIETA YING TECHNIQUE: ?2 frontal radiographs of the chest RL: ?5944 COMPARISON: ?10/12/2023 FINDINGS/[facility] 1 [id number] 04:56:45Exam: XR CHEST 1 , 10/12/2023 10:45 PM. Ordering Physician: NAKUL ORTIZ. History: r/o infiltrate . Technique: One view of the chest. Comparison: Chest radiograph 05/10/2023. Findings: Hyperexpanded lungs. No focal consolidation. No pneumothorax or effusion.Normal size of the cardiac silhouette.No acute osseous finding on thissingle view.[facility] CenterTRANCA [id number] 04:38:06 * Test Item Value Reference Range Interpretation Comme nts TROPONIN I (test code = 3300123011) 0.003 ng/mL <=0.034 ROSEANN (test code = [...] of biotin. Lab Interpretation (test code = 46532-1) Normal [facility] CenterN-TERMINAL [id number]-[id number] 04:35:44* Test Item Value Reference Range Interpretation Comme nts NT-proBNP (test code = 68743-9) 44 pg/mL <=125 Lab Interpretation (test cod e = 10923-9) Normal [facility] METABOLIC PANEL (NA, K, CL, CO2, GLUCOSE, BUN, CREATININE, CA)2023-10-13 04:29:06* Test Item Value Reference Range Interpretation Comme nts NA (test code = 0925647301) 137 mmol/L 135-145 K (test code = 9187989320) 3.7 mmol/L 3.5-5.0 CL (test code = 1853520826) 97 mmol/L 98-108 L CO2 TOTAL (test code = 5434510227) 40 mmol/L 23-31 H AGAP (test code = 0374818480) 2-16 L BUN (test code = 4357898505) 6 mg/dL 7-23 L GLUCOSE (test code = 2990409085) 98 mg/dL 70-110 CREATININE (test code = 2160-0) 0.80 mg/dL 0.60-1.25 CALCIUM (test code = 0880850581) 8.8 mg/dL 8.6-10.6 eGFR (test code = 30921-8) 100.1 mL/min/1.73m2 CKD-EPI eGFR (2020). Assuming creatinine has been stable day-to-day for at least three months, the eGFR indicates Category G1 (>= 90 mL/min/1.73 m2) Lab Interpretation (test code = 19021-2) Abnormal [facility] WITH [id number] 04:14:27* Test Item Value Reference Range Interpretation Comme nts WBC (test code = 6690-2) 6.71 4.20-10.70 RBC (test code = 789-8) 4.70 4.26-5.52 HGB (test code = 718-7) 14.5 g/dL 12.2-16.4 HCT (test code = 4544-3) 45.1 % 38.4-49.3 MCV (test code = 787-2) 96.0 fL 81.7-95.6 H MCH (test code = 785-6) 30.9 pg 26.1-32.7 MCHC (test code = 786-4) 32.2 g/dL 31.2-35.0 RDW-SD (test code = 39083-2) 53.6 fL 38.5-51.6 H RDW-CV (test code = 788-0) 15.2 % 12.1-15.4 PLT (test code = 777-3) 348 150-328 H MPV (test code = 23725-8) 9.6 fL 9.8-13.0 L NRBC/100 WBC (test code = 1513712682) 0.0 0.0-10.0 NRBC x10^3 (test code = 6573483936) See_Comment [Automated messa ge] The system which generated this result transmitted reference range: 10*3/?L. The reference range was not used to interpret this result as normal/abnormal. GRAN MAT (NEUT) % (test code = 770-8) 72.4 % IMM GRAN % (test code = 8627690439) 0.40 % LYMPH % (test code = 736-9) 15.2 % MONO % (test code = 5905-5) 6.4 % EOS % (test code = 713-8) 4.6 % BASO % (test code = 706-2) 1.0 % GRAN MAT x10^3(ANC) (test code = 8528244058) 4.85 10*3/uL 1.99-6.95 IMM GRAN x10^3 (test code = 2609059359) 0.03 10*3/uL 0.00-0.06 LYMPH x10^3 (test code = 731-0) 1.02 10*3/uL 1.09-3.23 L MONO x10^3 (test code = 742-7) 0.43 10*3/uL 0.36-1.02 EOS x10^3 (test code = 711-2) 0.31 10*3/uL 0.06-0.53 BASO x10^3 (test code = 704-7) 0.07 10*3/uL 0.01-0.09 Lab Interpretation (test code = 73019-8) Abnormal [facility] CenterRADIOLOGY [id number] 20:24:37 Ordered by an unspecified provider.[facility] CenterFL TIME OR (NON-REPORTABLE)2023-07-23 20:09:37These images do not require a Radiology diagnostic report.[facility] CenterHepatic Function Panel (37461) (ALB,T.PRO,BILI T,BU/BC,ALT,AST,ALK PHOS)2023-06-04 21:00:41* Test Item Value Reference Range Interpretation Comme nts TOTAL BILI (test code = 7630923350) 0.9 mg/dL 0.1-1.1 BILI UNCON (test code = 6317943949) 0.4 mg/dL 0.1-1.1 BILI CONJ (test code = 7184145931) 0.0 mg/dL 0.0-0.3 T PROTEIN (test code = 0215635832) 6.5 g/dL 6.3-8.2 ALBUMIN (test code = 8644742666) 3.6 g/dL 3.5-5.0 ALK PHOS (test code = 8516468365) 489 U/L 34-122 H ALTv (test code = 1742-6) 123 U/L 5-50 H AST(SGOT) (test code = 3783206653) 69 U/L 13-40 H Lab Interpretation (test cod e = 22639-1) [facility] (ALB,T.PRO,BILI T,BU/BC,ALT,AST,ALK PHOS)2023-06-04 21:00:41* Test Item Value Reference Range Interpretation Comme nts TOTAL BILI (test code = 4835815993) 0.9 mg/dL 0.1-1.1 BILI UNCON (test code = 5968673406) 0.4 mg/dL 0.1-1.1 BILI CONJ (test code = 0784825502) 0.0 mg/dL 0.0-0.3 T PROTEIN (test code = 7818312645) 6.5 g/dL 6.3-8.2 ALBUMIN (test code = 8954170465) 3.6 g/dL 3.5-5.0 ALK PHOS (test code = 9769247749) 489 U/L 34-122 H ALTv (test code = 1742-6) 123 U/L 5-50 H AST(SGOT) (test code = 5413923956) 69 U/L 13-40 H Lab Interpretation (test cod e = 78668-9) [facility] (ALB,T.PRO,BILI T,BU/BC,ALT,AST,ALK PHOS)2023-06-04 21:00:41* Test Item Value Reference Range Interpretation Comme [facility] TOTAL BILI (test code = 3385145711) 0.9 mg/dL 0.1-1.1 BILI UNCON (test code = 8511793797) 0.4 mg/dL 0.1-1.1 BILI CONJ (test code = 1679745312) 0.0 mg/dL 0.0-0.3 T PROTEIN (test code = 7635116233) 6.5 g/dL 6.3-8.2 ALBUMIN (test code = 6980722732) 3.6 g/dL 3.5-5.0 ALK PHOS (test code = 6002968281) 489 U/L 34-122 H ALTv (test code = 1742-6) 123 U/L 5-50 H AST(SGOT) (test code = 0176701913) 69 U/L 13-40 H Lab Interpretation (test cod e = 12910-0) [facility] / [id number] 20:45:36* Test Item Value Reference Range Interpretation Comme nts PROTIME PATIENT (test code = 5964-2) 12.2 12.0-14.7 INR (test code = 6301-6) 0.9 Normal INR <1.1; Warfarin Therapeutic range 2.0 to 3.0 or 2.5 to 3.5, depending upon the indications. Lab Interpretation (test code = 89788-8) Normal [facility] / [id number] 20:45:36* Test Item Value Reference Range Interpretation Comme nts PROTIME PATIENT (test code = 5964-2) 12.2 12.0-14.7 INR (test code = 6301-6) 0.9 Normal INR <1.1; Warfarin Therapeutic range 2.0 to 3.0 or 2.5 to 3.5, depending upon the indications. Lab Interpretation (test code = 37429-3) Normal [facility] / [id number] 20:45:36* Test Item Value Reference Range Interpretation Comme nts PROTIME PATIENT (test code = 5964-2) 12.2 12.0-14.7 INR (test code = 6301-6) 0.9 Normal INR <1.1; Warfarin Therapeutic range 2.0 to 3.0 or 2.5 to 3.5, depending upon the indications. Lab Interpretation (test code = 40947-9) Normal [facility] CenterGlycosylated Hemoglobin (A1C)2023-05-12 00:51:29* Test Item Value Reference Range Interpretation Comme [facility] HGB A1C (test code = 4548-4) 6.6 % 4.0-5.7 H ROSEANN (test code = ROSEANN) Reference RangesNormal: <5.7%Prediabetes: 5.7 - 6.4%Diabetes: > 6.5% Lab Interpretation (test code = 34034-0) [facility]normal [facility] Center[facility]cos[facility] Hemoglobin (A1C)2023-05-12 00:51:29* Test Item Value Reference Range Interpretation Comme nts HGB A1C (test code = 4548-4) 6.6 % 4.0-5.7 H ROSEANN (test code = ROSEANN) Reference RangesNormal: <5.7%Prediabetes: 5.7 - 6.4%Diabetes: > 6.5% Lab Interpretation (test code = 70664-1) [facility]normal [facility] / [id number] 21:40:00* Test Item Value Reference Range Interpretation Comme nts PROTIME PATIENT (test code = 5964-2) 16.0 See_Comment H [Automated UpDroid] The system which generated this result transmitted reference range: 12.0 - 14.7 Seconds. The reference range was not used to interpret this result as normal/abnormal. INR (test code = 6301-6) 1.3 Normal INR <1.1; Warfarin Therapeutic range 2.0 to 3.0 or 2.5 to 3.5, depending upon the indications. Lab Interpretation (test code = 84197-8) [facility]normal [facility] / [id number] 21:40:00* Test Item Value Reference Range Interpretation Comme [facility] JAMES PATIENT (test code = 5964-2) 16.0 See_Comment H [Automated UpDroid] The system which generated this result transmitted reference range: 12.0 - 14.7 Seconds. The reference range was not used to interpret this result as normal/abnormal. INR (test code = 6301-6) 1.3 Normal INR <1.1; Warfarin Therapeutic range 2.0 to 3.0 or 2.5 to 3.5, depending upon the indications. Lab Interpretation (test code = 26602-1) Abnormal [facility] GALL [id number] 15:41:48EXAM: US GALL BLADDER HISTORY: 63 years-old Male with ruq pain . TECHNIQUE: Gallbladder ultrasound was performed. Main portal vein wasevaluated with color Doppler imaging. Edge Molder images were obtainedfor the record. COMPARISON: Same day CT abdomen pelvis with contrast. FINDINGS: GALLBLADDER:Hydropic gallbladder. Multiple small gallstones are seen.Normal gallbladder wall thickness, 3 mm.Murp hy's sign could not be accurately asssessed due to premedication forpain.. BILE DUCTS:No intra- or extrahepatic biliary dilatation..Common Duct diameter: 5 mm. PANCREAS: Limited visualization due to shadowing from bowel gas.. OTHER: None. [facility] GALL [id number] 15:41:48EXAM: US GALL BLADDER HISTORY: 63 years-old Male with ruq pain . TECHNIQUE: Gallbladder ultrasound was performed. Main portal vein wasevaluated with color Doppler imaging. Edge Molder images were obtainedfor the record. COMPARISON: Same day CT abdomen pelvis with contrast. FINDINGS: GALLBLADDER:Hydropic gallbladder. Multiple small gallstones are seen.Normal gallbladder wall thickness, 3 mm.Murp hy's sign could not be accurately asssessed due to premedication forpain.. BILE DUCTS:No intra- or extrahepatic biliary dilatation..Common Duct diameter: 5 mm. PANCREAS: Limited visualization due to shadowing from bowel gas.. OTHER: None. [facility] ABDOMEN PELVIS W [id number] 14:19:00CT ABDOMEN PELVIS W CONTRAST HISTORY: ?Abdominal pain, acute, nonlocalized EPIGASTRIC PAIN, ELEVATED LFTS, LIPASE COMPARISON: October 02, 2022 TECHNIQUE: CT abdomen and pelvis with intravenous contrast. All CT scans at this facility use dose modulation, iterativereconstruction, and/or weight based dosin g when appropriate to reduceradiation dose to as low as reasonably achievable. FINDINGS: There is atiny calcified granuloma in the right lung base. The liver contour is smooth. There is no discrete liver mass orintrahepatic biliary dilatation. The spleen, pancreas, and adrenal glandsare unremarkable. There is no hydronephrosis. The urinary bladder isunremarkable. There are small stones in the gallbladder. The gastrointestinal tract isunobstructed. There is no intraperitoneal free air or free fluid. Theappendix is not identified with certainty. There is no pericecalinflammation. There is no abdominal aortic aneurysm. There are no destructive bonelesions. There is grade 1 subluxation of L5 on S1.[facility] ABDOMEN PELVIS W CONTRAST 2023-05-11 14:19:00DC ABDOMEN PELVIS W CONTRAST HISTORY: ?Abdominal pain, acute, nonlocalized EPIGASTRIC PAIN, ELEVATED LFTS, LIPASE COMPARISON: October 02, 2022 TECHNIQUE: CT abdomen and pelvis with intravenous contrast. All CT scans at this facility use dose modulation, iterativereconstruction, and/or weight based dosin g when appropriate to reduceradiation dose to as low as reasonably achievable. FINDINGS: There is atiny calcified granuloma in the right lung base. The liver contour is smooth. There is no discrete liver mass orintrahepatic biliary dilatation. The spleen, pancreas, and adrenal glandsare unremarkable. There is no hydronephrosis. The urinary bladder isunremarkable. There are small stones in the gallbladder. The gastrointestinal tract isunobstructed. There is no intraperitoneal free air or free fluid. Theappendix is not identified with certainty. There is no pericecalinflammation. There is no abdominal aortic aneurysm. There are no destructive bonelesions. There is grade 1 subluxation of L5 on S1.[facility] 11:41:55* Test Item Value Reference Range Interpretation Comme nts LIPASE (test code = 5411720207) 0-220 H Lab Interpretation (test cod e = 79737-0) Abnormal [facility] CenterLipase2024-01-12 11:41:55* Test Item Value Reference Range Interpretation Comme nts LIPASE (test code = 7842285328) 0-220 H Lab Interpretation (test cod e = 96453-1) Abnormal [facility] [id number] 11:11:28* Test Item Value Reference Range Interpretation Comme nts TROPONIN I (test code = 7967747613) 0.005 ng/mL <=0.034 ROSEANN (test code = ROSEANN) [...] of biotin. Lab Interpretation (test code = 99106-0) Normal [facility] [id number] 11:11:28* Test Item Value Reference Range Interpretation Comme nts TROPONIN I (test code = 2166689010) 0.005 ng/mL <=0.034 ROSEANN (test code = ROSEANN) [...] of biotin. Lab Interpretation (test code = 06573-1) Normal [facility] with [id number] 11:08:35* Test Item Value Reference Range Interpretation Comme nts WBC (test code = 6690-2) 20.62 See_Comment H [Automated message] The system which generated this result transmitted reference range: 4.20 - 10.70 10*3/?L. The reference range was not used to interpret this result as normal/abnormal. RBC (test code = 789-8) 5.17 See_Comment [Automated message] The system which generated this result transmitted reference range: 4.26 - 5.52 10*6/?L. The reference range was not used to interpret this result as normal/abnormal. HGB (test code = 718-7) 16.1 g/dL 12.2-16.4 HCT (test code = 4544-3) 49.5 % 38.4-49.3 H MCV (test code = 787-2) 95.7 fL 81.7-95.6 H MCH (test code = 785-6) 31.1 pg 26.1-32.7 MCHC (test code = 786-4) 32.5 g/dL 31.2-35.0 RDW-SD (test code = 72264-2) 52.9 fL 38.5-51.6 H RDW-CV (test code = 788-0) 15.1 % 12.1-15.4 PLT (test code = 777-3) 357 See_Comment H [Automated message] The system which generated this result transmitted reference range: 150 - 328 10*3/?L. The reference range was not used to interpret this result as normal/abnormal. MPV (test code = 68162-8) 10.2 fL 9.8-13.0 NRBC/100 WBC (test code = 9009782452) 0.0 See_Comment [Automated message] The system which generated this result transmitted reference range: 0.0 - 10.0 /100 WBCs. The reference range was not used to interpret this result as normal/abnormal. NRBC x10^3 (test code = 3265966842) See_Comment [Automated message] The system which generated this result transmitted reference range: 10*3/?L. The reference range was not used to interpret this result as normal/abnormal. GRAN MAT (NEUT) % (test code = 770-8) 83.4 % IMM GRAN % (test code = 1247384850) 4.00 % LYMPH % (test code = 736-9) 6.3 % MONO % (test code = 5905-5) 5.8 % EOS % (test code = 713-8) 0.1 % BASO % (test code = 706-2) 0.4 % GRAN MAT x10^3(ANC) (test code = 7818050293) 17.20 10*3/uL 1.99-6.95 H IMM GRAN x10^3 (test code = 0909644771) 0.82 10*3/uL 0.00-0.06 H LYMPH x10^3 (test code = 731-0) 1.29 10*3/uL 1.09-3.23 MONO x10^3 (test code = 742-7) 1.19 10*3/uL 0.36-1.02 H EOS x10^3 (test code = 711-2) 0.03 10*3/uL 0.06-0.53 L BASO x10^3 (test code = 704-7) 0.09 10*3/uL 0.01-0.09 REACT LYMPHS (test code = 4305882111) Rare Lab Interpretation (test code = 92554-2) Abnormal [facility] with [id number] 11:08:35* Test Item Value Reference Range Interpretation Comme nts WBC (test code = 6690-2) 20.62 See_Comment H [Automated message] The system which generated this result transmitted reference range: 4.20 - 10.70 10*3/?L. The reference range was not used to interpret this result as normal/abnormal. RBC (test code = 789-8) 5.17 See_Comment [Automated message] The system which generated this result transmitted reference range: 4.26 - 5.52 10*6/?L. The reference range was not used to interpret this result as normal/abnormal. HGB (test code = 718-7) 16.1 g/dL 12.2-16.4 HCT (test code = 4544-3) 49.5 % 38.4-49.3 H MCV (test code = 787-2) 95.7 fL 81.7-95.6 H MCH (test code = 785-6) 31.1 pg 26.1-32.7 MCHC (test code = 786-4) 32.5 g/dL 31.2-35.0 RDW-SD (test code = 15299-4) 52.9 fL 38.5-51.6 H RDW-CV (test code = 788-0) 15.1 % 12.1-15.4 PLT (test code = 777-3) 357 See_Comment H [Automated message] The system which generated this result transmitted reference range: 150 - 328 10*3/?L. The reference range was not used to interpret this result as normal/abnormal. MPV (test code = 66413-6) 10.2 fL 9.8-13.0 NRBC/100 WBC (test code = 3182779061) 0.0 See_Comment [Automated message] The system which generated this result transmitted reference range: 0.0 - 10.0 /100 WBCs. The reference range was not used to interpret this result as normal/abnormal. NRBC x10^3 (test code = 5891103575) See_Comment [Automated message] The system which generated this result transmitted reference range: 10*3/?L. The reference range was not used to interpret this result as normal/abnormal. GRAN MAT (NEUT) % (test code = 770-8) 83.4 % IMM GRAN % (test code = 7691348075) 4.00 % LYMPH % (test code = 736-9) 6.3 % MONO % (test code = 5905-5) 5.8 % EOS % (test code = 713-8) 0.1 % BASO % (test code = 706-2) 0.4 % GRAN MAT x10^3(ANC) (test code = 6317589120) 17.20 10*3/uL 1.99-6.95 H IMM GRAN x10^3 (test code = 8524011206) 0.82 10*3/uL 0.00-0.06 H LYMPH x10^3 (test code = 731-0) 1.29 10*3/uL 1.09-3.23 MONO x10^3 (test code = 742-7) 1.19 10*3/uL 0.36-1.02 H EOS x10^3 (test code = 711-2) 0.03 10*3/uL 0.06-0.53 L BASO x10^3 (test code = 704-7) 0.09 10*3/uL 0.01-0.09 REACT LYMPHS (test code = 8071382873) Rare Lab Interpretation (test code = 64403-1) [facility]normal [facility] (75056)2023-05-11 10:33:23* Test Item Value Reference Range Interpretation Comme nts NA (test code = 7020724973) 139 mmol/L 135-145 K (test code = 7504829674) 4.1 mmol/L 3.5-5.0 CL (test code = 5562209181) 98 mmol/L 98-108 CO2 TOTAL (test code = 2255888994) 38 mmol/L 23-31 H AGAP (test code = 1608949478) 3 2-16 BUN (test code = 7128746941) 27 mg/dL 7-23 H GLUCOSE (test code = 7523010374) 108 mg/dL 70-110 CREATININE (test code = 2557972336) 0.60 mg/dL 0.60-1.25 TOTAL BILI (test code = 3189121925) 1.8 mg/dL 0.1-1.1 H CALCIUM (test code = 7522042720) 9.5 mg/dL 8.6-10.6 T PROTEIN (test code = 4973863605) 7.5 g/dL 6.3-8.2 ALBUMIN (test code = 8221015432) 4.2 g/dL 3.5-5.0 ALK PHOS (test code = 1825206661) 171 U/L 34-122 H ALTv (test code = 1742-6) 524 U/L 5-50 H AST(SGOT) (test code = 2393145039) 624 U/L 13-40 H eGFR (test code = 66319-0) 109.1 mL/min/1.73m2 CKD-EPI eGFR (2020). Assuming creatinine has been stable day-to-day for at least three months, the eGFR indicates Category G1 (>= 90 mL/min/1.73 m2) Lab Interpretation (test code = 05774-4) Abnormal [facility]. Metabolic Panel (97627)2023-05-11 10:33:23* Test Item Value Reference Range Interpretation Comme nts NA (test code = 7711913762) 139 mmol/L 135-145 K (test code = 7984594724) 4.1 mmol/L 3.5-5.0 CL (test code = 8779915529) 98 mmol/L 98-108 CO2 TOTAL (test code = 5470729685) 38 mmol/L 23-31 H AGAP (test code = 4540687461) 3 2-16 BUN (test code = 2244055197) 27 mg/dL 7-23 H GLUCOSE (test code = 6021165846) 108 mg/dL 70-110 CREATININE (test code = 4367691797) 0.60 mg/dL 0.60-1.25 TOTAL BILI (test code = 0589039403) 1.8 mg/dL 0.1-1.1 H CALCIUM (test code = 9976173456) 9.5 mg/dL 8.6-10.6 T PROTEIN (test code = 0818139343) 7.5 g/dL 6.3-8.2 ALBUMIN (test code = 3825249790) 4.2 g/dL 3.5-5.0 ALK PHOS (test code = 9398876472) 171 U/L 34-122 H ALTv (test code = 1742-6) 524 U/L 5-50 H AST(SGOT) (test code = 4557895529) 624 U/L 13-40 H eGFR (test code = 17897-7) 109.1 mL/min/1.73m2 CKD-EPI eGFR (2020). Assuming creatinine has been stable day-to-day for at least three months, the eGFR indicates Category G1 (>= 90 mL/min/1.73 m2) Lab Interpretation (test code = 38637-5) Abnormal [facility] Arterial Blood Gas.2023-05-11 10:11:33* Test Item Value Reference Range Interpretation Comme nts PH (test code = 2) 7.41 7.35-7.45 PCO2 (test code = 9546537744) 55 See_Comment H [Automated messa ge] The system which generated this result transmitted reference range: 35 - 45 mmHg. The reference range was not used to interpret this result as normal/abnormal. PO2 (test code = 3906688995) 71 See_Comment L [Automated messa ge] The system which generated this result transmitted reference range: 80 - 100 mmHg. The reference range was not used to interpret this result as normal/abnormal. HCO3 (test code = 6713954870) 34 See_Comment H [Automated messa ge] The system which generated this result transmitted reference range: 22 - 26 mEq/L. The reference range was not used to interpret this result as normal/abnormal. BE (test code = 8030892849) 7.2 See_Comment H [Automated messa ge] The system which generated this result transmitted reference range: -3.0 - 3.0 mEq/L. The reference range was not used to interpret this result as normal/abnormal. Lab Interpretation (test code = 78058-6) Abnormal [facility] Arterial Blood Gas.2023-05-11 10:11:33* Test Item Value Reference Range Interpretation Comme nts PH (test code = 2) 7.41 7.35-7.45 PCO2 (test code = 9862124020) 55 See_Comment H [Automated messa ge] The system which generated this result transmitted reference range: 35 - 45 mmHg. The reference range was not used to interpret this result as normal/abnormal. PO2 (test code = 4443858591) 71 See_Comment L [Automated messa ge] The system which generated this result transmitted reference range: 80 - 100 mmHg. The reference range was not used to interpret this result as normal/abnormal. HCO3 (test code = 0518100740) 34 See_Comment H [Automated messa ge] The system which generated this result transmitted reference range: 22 - 26 mEq/L. The reference range was not used to interpret this result as normal/abnormal. BE (test code = 7334187662) 7.2 See_Comment H [Automated messa ge] The system which generated this result transmitted reference range: -3.0 - 3.0 mEq/L. The reference range was not used to interpret this result as normal/abnormal. Lab Interpretation (test code = 79146-9) [id number] 11:39:27Elsie Ramos MD ? ? 05/10/2023 ?5:39 AMCritical Care Performed by: Elsie Ramos MDAuthorizedby: Elsie Ramos MD ?Critical care provider statement: ?Critical care time (minutes): ?45 ?Critical care time was exclusive of: ?Separately billable procedures and treating other patients and teaching time ?Critical care was necessary to treat or prevent imminent or life-threatening deterioration of the following conditions: ?Respiratory failure ?Critical care was time spent personally by me on the following activities: ?Development of treatment plan with patient or surrogate, evaluation ofpatient's response to treatment, examination of patient, obtaining history from patient or surrogate, ordering and performing treatments and interventions, ordering and review of laboratory studies, ordering and review of radiographic studies, pulse oximetry, re- evaluation of patient's condition and review of old charts ?Care discussed with: admitting provider ?Comments: ? Due to a high probability of clinically significant, life threatening deterioration, the patient required my highest level of preparedness to intervene emergently and I personally spent this critical care time directly and personally managing the patient. This critical care time included obtaining a history; examining thepatient; pulse oximetry; ordering and review of studies; arranging urgent treatment with development of a management plan; evaluation of patient's response to treatment; frequent reassessment; and, discussions with other providers.This critical care time was performed to assess and manage the high probability of imminent, life- threatening deterioration that could result in multi-organ failure. Itwas exclusive of separately billable procedures and treating other patients. [facility] [id number] 07:51:57Exam: Chest (1 View), 05/10/2023 12:45 AM. Ordering Physician: ELSIE RAMOS. History: dyspnea . Technique: One view of the chest. Comparison: Chest radiograph 05/01/2023, CT chest angiogram 05/01/2023. Findings: Central bronchial wall thickening. No focal consolidation. Increased lungvolumes. No pneumothorax or effusion. Normal size of the cardiacsilhouette. No acute osseous finding on this single view. [facility] CenterPro[facility] Time / [id number] 19:45:16* Test Item Value Reference Range Interpretation Comme [facility] PROTDENG PATIENT (test code = 5964-2) 13.7 See_Comment [Automated UpDroid] The system which generated this result transmitted reference range: 12.0 - 14.7 Seconds. The reference range was not used to interpret this result as normal/abnormal. INR (test code = 6301-6) 1.1 Normal INR <1.1; Warfarin Therapeutic range 2.0 to 3.0 or 2.5 to 3.5, depending upon the indications. Lab Interpretation (test code = 06699-0) Normal [facility]+ VW [id number] 19:35:37HISTORY: Osteomyelitis. FINDINGS: AP, lateral, oblique views of right foot are obtained andcomparedwith 02/19/2023 study. Most of the fifth toe has been amputatedexcept for small portion of the baseof the proximal phalanx which showedno plain film sign suspicious for osteomyelitis. Question of osteomyelitis was raised in the terminal phalanx of the greattoe in the previous study which is not confirmed at this time. Mild firstMTP joint degenerative arthritis noted. CONCLUSIONS: No plain film signs of osteomyelitis in the right foot bones.If there is persistent concern for osteomyelitis in the terminal phalanx ofgreat toe, triple phase bone scan and/or MRI study may be obtained.[facility] Prothrombin Time / [id number] 17:05:01* Test Item Value Reference Range Interpretation Comme [facility] PROTDENG PATIENT (test code = 5964-2) 15.1 See_Comment H [Automated [employer]Droid] The system which generated this result transmitted reference range: 12.0 - 14.7 Seconds. The reference range was not used to interpret this result as normal/abnormal. INR (test code = 6301-6) 1.2 Normal INR <1.1; Warfarin Therapeutic range 2.0 to 3.0 or 2.5 to 3.5, depending upon the indications. Lab Interpretation (test code = 39829-5) Abnormal [facility]MON[facility] [id number] 00:57:09ORDERING PHYSICIAN: CED GUY CLINICAL HISTORY:Pulmonary embolism. TECHNIQUE:CT angiography of the chest performed with intravenous contrast. [place] coronal 3-D MIP images were reconstructed. Exam was performed withradiation as low as reasonably achievable (ALARA) principles. COMPARISON:CT 11/28/2022. FINDINGS:No evidence of acute pulmonary embolism. Normal size of heart. Normal sizeof thoracic aorta. Normal central airways. Moderate to severe emphysematous changes throughoutthe lungs, greater at the upper lobes than the lower lobes. Mild diffusebronchial wall thickening diffusely throughout both lungs. There areseveral scattered peribronchial nodules suspicious for mild infectious orinflammatory process. Largest nodules are 1.0 cm in the left lower lobeimage 192 series 11 and 0.7 cm in the left lower lobe image 154. Normal esophagus. No enlarged mediastinal, hilar or axillarylymph nodes.Partially imaged upper abdomen is unremarkable. No acute abnormality ofbones or superfic ial soft tissues.[facility] CenterCbc with [id number] 00:26:13* Test Item Value Reference Range Interpretation Comme nts WBC (test code = 6690-2) 23.40 See_Comment H [Automated message] The system which generated this result transmitted reference range: 4.20 - 10.70 10*3/?L. The reference range was not used to interpret this result as normal/abnormal. RBC (test code = 789-8) 4.78 See_Comment [Automated message] The system which generated this result transmitted reference range: 4.26 - 5.52 10*6/?L. The reference range was not used to interpret this result as normal/abnormal. HGB (test code = 718-7) 14.6 g/dL 12.2-16.4 HCT (test code = 4544-3) 44.0 % 38.4-49.3 MCV (test code = 787-2) 92.1 fL 81.7-95.6 MCH (test code = 785-6) 30.5 pg 26.1-32.7 MCHC (test code = 786-4) 33.2 g/dL 31.2-35.0 RDW-SD (test code = 94111-8) 49.5 fL 38.5-51.6 RDW-CV (test code = 788-0) 14.6 % 12.1-15.4 PLT (test code = 777-3) 351 See_Comment H [Automated message] The system which generated this result transmitted reference range: 150 - 328 10*3/?L. The reference range was not used to interpret this result as normal/abnormal. MPV (test code = 71201-7) 9.6 fL 9.8-13.0 L NRBC/100 WBC (test code = 8494173456) 0.0 See_Comment [Automated message] The system which generated this result transmitted reference range: 0.0 - 10.0 /100 WBCs. The reference range was not used to interpret this result as normal/abnormal. NRBC x10^3 (test code = 1545075388) See_Comment [Automated message] The system which generated this result transmitted reference range: 10*3/?L. The reference range was not used to interpret this result as normal/abnormal. GRAN MAT (NEUT) % (test code = 770-8) 92.2 % IMM GRAN % (test code = 2155415010) 1.40 % LYMPH % (test code = 736-9) 1.9 % MONO % (test code = 5905-5) 3.6 % EOS % (test code = 713-8) 0.6 % BASO % (test code = 706-2) 0.3 % GRAN MAT x10^3(ANC) (test code = 8705105888) 21.57 10*3/uL 1.99-6.95 H IMM GRAN x10^3 (test code = 4224266878) 0.33 10*3/uL 0.00-0.06 H LYMPH x10^3 (test code = 731-0) 0.45 10*3/uL 1.09-3.23 L MONO x10^3 (test code = 742-7) 0.85 10*3/uL 0.36-1.02 EOS x10^3 (test code = 711-2) 0.14 10*3/uL 0.06-0.53 BASO x10^3 (test code = 704-7) 0.06 10*3/uL 0.01-0.09 Lab Interpretation (test code = 26533-0) [facility] [id number] 00:16:53* Test Item Value Reference Range Interpretation Comme nts TROPONIN I (test code = 4130635537) 0.003 ng/mL <=0.034 ROSEANN (test code = [...] of biotin. Lab Interpretation (test code = 18453-0) [facility] 1 [id number] 00:16:21ORDERING PHYSICIAN: ? CED ?BEHZADI HISTORY: dyspnea ? COMPARISON: 04/19/2023 FINDINGS: A single frontal view of the chest. Heart is normal in size. ?There is no pulmonary edema. There are no focalareas of consolidation. There is no pneumothorax. ?There are no pleuraleffusions. ?Old left-sided rib fractures once again seen. ? Osseousstructures are unremarkable. ? Please note that chest radiography is not a sensitive modality for thedetection of masses.[facility] Aqn-[id number] 00:14:51* Test Item Value Reference Range Interpretation Comme nts NT-proBNP (test code = 86088-6) 116 pg/mL <=125 Lab Interpretation (test cod e = 79557-6) Normal [facility] Center[facility] Met[facility] Panel ([id number])2023-05-02 00:05:13* Test Item Value Reference Range Interpretation Comme nts NA (test code = 1110933366) 134 mmol/L 135-145 L K (test code = 9715462824) 4.3 mmol/L 3.5-5.0 CL (test code = 4876073676) 98 mmol/L 98-108 CO2 TOTAL (test code = 3531547859) 30 mmol/L 23-31 AGAP (test code = 5187692173) 6 2-16 BUN (test code = 4278660620) 9 mg/dL 7-23 GLUCOSE (test code = 9668125473) 128 mg/dL 70-110 H CREATININE (test code = 4610878298) 0.73 mg/dL 0.60-1.25 TOTAL BILI (test code = 4795938252) 0.9 mg/dL 0.1-1.1 CALCIUM (test code = 0106017733) 9.4 mg/dL 8.6-10.6 T PROTEIN (test code = 6550655189) 7.2 g/dL 6.3-8.2 ALBUMIN (test code = 3052972477) 4.1 g/dL 3.5-5.0 ALK PHOS (test code = 4934599591) 125 U/L 34-122 H ALTv (test code = 1742-6) 55 U/L 5-50 H AST(SGOT) (test code = 7594519541) 31 U/L 13-40 eGFR (test code = 03857-0) 102.9 mL/min/1.73m2 CKD-EPI eGFR (2020). Assuming creatinine has been stable day-to-day for at least three months, the eGFR indicates Category G1 (>= 90 mL/min/1.73 m2) Lab Interpretation (test code = 55505-6) [facility] Oqv-[id number] 15:17:36* Test Item Value Reference Range Interpretation Comme nts NT-proBNP (test code = 59273-8) 155 pg/mL <=125 ROSEANN (test code = ROSEANN) Result Indeterminate-Consid er causes of NT-proBNP elevation other than Heart failure such as acute coronary syndrome, pulmonary embolism, pulmonary hypertension, sepsis, stroke, and renal dysfunction. Lab Interpretation (test code = 36409-8) [facility]normal [facility] CenterPhosphorus2023-12-21 12:15:02* Test Item Value Reference Range Interpretation Comme nts PHOSPHORUS (test code = 6922785951) 4.7 mg/dL 2.5-5.0 Lab Interpretation (test cod e = 47877-7) [facility] CenterCBC WITH [id number] 10:44:10* Test Item Value Reference Range Interpretation Comme nts WBC (test code = 6690-2) 21.01 See_Comment H [Automated message] The system which generated this result transmitted reference range: 4.20 - 10.70 10*3/?L. The reference range was not used to interpret this result as normal/abnormal. RBC (test code = 789-8) 4.67 See_Comment [Automated message] The system which generated this result transmitted reference range: 4.26 - 5.52 10*6/?L. The reference range was not used to interpret this result as normal/abnormal. HGB (test code = 718-7) 14.4 g/dL 12.2-16.4 HCT (test code = 4544-3) 44.2 % 38.4-49.3 MCV (test code = 787-2) 94.6 fL 81.7-95.6 MCH (test code = 785-6) 30.8 pg 26.1-32.7 MCHC (test code = 786-4) 32.6 g/dL 31.2-35.0 RDW-SD (test code = 82944-2) 50.4 fL 38.5-51.6 RDW-CV (test code = 788-0) 14.6 % 12.1-15.4 PLT (test code = 777-3) 572 See_Comment H [Automated message] The system which generated this result transmitted reference range: 150 - 328 10*3/?L. The reference range was not used to interpret this result as normal/abnormal. MPV (test code = 48462-6) 9.8 fL 9.8-13.0 NRBC/100 WBC (test code = 5414827530) 0.0 See_Comment [Automated message] The system which generated this result transmitted reference range: 0.0 - 10.0 /100 WBCs. The reference range was not used to interpret this result as normal/abnormal. NRBC x10^3 (test code = 2946305133) See_Comment [Automated message] The system which generated this result transmitted reference range: 10*3/?L. The reference range was not used to interpret this result as normal/abnormal. SEG % (test code = 07519-8) 84 % 33-76 H BAND % (test code = 54948-6) 4 % 0-1 H MONO % (test code = 39672-7) 8 % 0-4 H EOS % (test code = 07557-4) 4 % 0-3 H ANC (test code = 753-4) 18.49 10*3/uL 1.99-6.95 H PLT ESTIMATE (test code = 9317-9) Increased Normal A Lab Interpretation (test code = 87038-8) [facility] 1 [id number] 10:35:02ORDERING PHYSICIAN: ?ANDIE JOSE CLINICAL HISTORY: Shortness of breath TECHNIQUE: Frontal view of chest COMPARISON: 04/12/2023 FINDINGS: The cardiac silhouette is within normal limits. ?There are mildly increasedinterstitial pulmonary opacities bilaterally, possibly representinginterstitial edema versus bilateral atypical interstitial pneumonia. Thereare no effusions. Osseous structures are normal.[facility] CenterCOMP. METABOLIC PANEL ([id number])2023-04-19 10:19:06* Test Item Value Reference Range Interpretation Comme nts NA (test code = 0091536924) 135 mmol/L 135-145 K (test code = 1924593198) 4.0 mmol/L 3.5-5.0 CL (test code = 9926080700) 98 mmol/L 98-108 CO2 TOTAL (test code = 3445579867) 29 mmol/L 23-31 AGAP (test code = 4967342315) 8 2-16 BUN (test code = 8911416344) 14 mg/dL 7-23 GLUCOSE (test code = 9528907002) 112 mg/dL 70-110 H CREATININE (test code = 2255441215) 0.73 mg/dL 0.60-1.25 TOTAL BILI (test code = 4533163603) 0.8 mg/dL 0.1-1.1 CALCIUM (test code = 0881188611) 9.4 mg/dL 8.6-10.6 T PROTEIN (test code = 5082415844) 7.5 g/dL 6.3-8.2 ALBUMIN (test code = 0739454949) 4.3 g/dL 3.5-5.0 ALK PHOS (test code = 5872749009) 289 U/L 34-122 H ALTv (test code = 1742-6) 134 U/L 5-50 H AST(SGOT) (test code = 4410929047) 65 U/L 13-40 H eGFR (test code = 35073-1) 102.9 mL/min/1.73m2 CKD-EPI eGFR (2020). Assuming creatinine has been stable day-to-day for at least three months, the eGFR indicates Category G1 (>= 90 mL/min/1.73 m2) Lab Interpretation (test code = 95302-0) [facility]normal [facility] CenterPROTHROMBIN TIME / [id number] 10:14:48* Test Item Value Reference Range Interpretation Comme [facility] PROTIME PATIENT (test code = 5964-2) 19.2 See_Comment H [Automated messa ge] The system which generated this result transmitted reference range: 12.0 - 14.7 Seconds. The reference range was not used to interpret this result as normal/abnormal. INR (test code = 6301-6) 1.7 Normal INR <1.1; Warfarin Therapeutic range 2.0 to 3.0 or 2.5 to 3.5, depending upon the indications. Lab Interpretation (test code = 78518-0) [facility]normal [facility] Center[facility] Venous Blood [id number] 15:45:52 * Test Item Value Reference Range Interpretation Comme [facility] PH (test code = 4180770434) 7.39 7.32-7.42 PCO2 LARRY (test code = 9082691143) 46 See_Comment [Automated messa ge] The system which generated this result transmitted reference range: 41 - 51 mmHg. The reference range was not used to interpret this result as normal/abnormal. PO2 LARRY (test code = 3393345911) 51 See_Comment H [Automated messa ge] The system which generated this result transmitted reference range: 25 - 40 mmHg. The reference range was not used to interpret this result as normal/abnormal. HCO3 LARRY (test code = 6724967964) 27 See_Comment [Automated messa ge] The system which generated this result transmitted reference range: 24 - 28 mEq/L. The reference range was not used to interpret this result as normal/abnormal. AC VBE(BEAKER) (test code = 7578800477) 1.2 mEq/L Lab Interpretation (test code = 14750-6) [facility]normal [facility] Ven[facility] [id number] 15:45:52 * Test Item Value Reference Range Interpretation Comme nts PH (test code = 9305732770) 7.39 7.32-7.42 PCO2 LARRY (test code = 2520665616) 46 See_Comment [Automated messa ge] The system which generated this result transmitted reference range: 41 - 51 mmHg. The reference range was not used to interpret this result as normal/abnormal. PO2 LARRY (test code = 5656170243) 51 See_Comment H [Automated messa ge] The system which generated this result transmitted reference range: 25 - 40 mmHg. The reference range was not used to interpret this result as normal/abnormal. HCO3 LARRY (test code = 9410152682) 27 See_Comment [Automated messa ge] The system which generated this result transmitted reference range: 24 - 28 mEq/L. The reference range was not used to interpret this result as normal/abnormal. AC VBE(BEAKER) (test code = 8290230346) 1.2 mEq/L Lab Interpretation (test code = 63592-8) [facility] Jvd-Zqz0890-24-15 05:48:00* Test Item Value Reference Range Interpretation Comme [facility] NT-proBNP (test code = 99759-1) 204 pg/mL <=125 ROSEANN (test code = ROSEANN) Result Indeterminate-Consid er causes of NT-proBNP elevation other than Heart failure such as acute coronary syndrome, pulmonary embolism, pulmonary hypertension, sepsis, stroke, and renal dysfunction. Lab Interpretation (test code = 25797-7) [facility]normal [facility] Ktk-Tjk8832-07-15 05:48:00* Test Item Value Reference Range Interpretation Comme [facility] NT-proBNP (test code = 18807-1) 204 pg/mL <=125 ROSEANN (test code = ROSEANN) Result Indeterminate-Consid er causes of NT-proBNP elevation other than Heart failure such as acute coronary syndrome, pulmonary embolism, pulmonary hypertension, sepsis, stroke, and renal dysfunction. Lab Interpretation (test code = 95733-3) [facility] (NA, K, CL, CO2, GLUCOSE, BUN, CREATININE, CA)2023-04-13 05:39:03* Test Item Value Reference Range Interpretation Comme nts NA (test code = 1893806303) 140 mmol/L 135-145 K (test code = 8105536330) 4.0 mmol/L 3.5-5.0 CL (test code = 4811190272) 102 mmol/L 98-108 CO2 TOTAL (test code = 5314094479) 30 mmol/L 23-31 AGAP (test code = 3701868457) 8 2-16 BUN (test code = 0940692878) 10 mg/dL 7-23 GLUCOSE (test code = 1897814394) 147 mg/dL 70-110 H CREATININE (test code = 0047831096) 0.71 mg/dL 0.60-1.25 CALCIUM (test code = 7915991341) 9.6 mg/dL 8.6-10.6 eGFR (test code = 98956-0) 103.7 mL/min/1.73m2 CKD-EPI eGFR (2020). Assuming creatinine has been stable day-to-day for at least three months, the eGFR indicates Category G1 (>= 90 mL/min/1.73 m2) Lab Interpretation (test code = 65199-1) Abnormal [facility] Metabolic Panel (NA, K, CL, CO2, GLUCOSE, BUN, CREATININE, CA)2023-04-13 05:39:03* Test Item Value Reference Range Interpretation Comme nts NA (test code = 8847956877) 140 mmol/L 135-145 K (test code = 7965003422) 4.0 mmol/L 3.5-5.0 CL (test code = 0998511940) 102 mmol/L 98-108 CO2 TOTAL (test code = 8937181189) 30 mmol/L 23-31 AGAP (test code = 5131274190) 8 2-16 BUN (test code = 5113716430) 10 mg/dL 7-23 GLUCOSE (test code = 0634637886) 147 mg/dL 70-110 H CREATININE (test code = 8296306329) 0.71 mg/dL 0.60-1.25 CALCIUM (test code = 8167995734) 9.6 mg/dL 8.6-10.6 eGFR (test code = 80020-1) 103.7 mL/min/1.73m2 CKD-EPI eGFR (2020). Assuming creatinine has been stable day-to-day for at least three months, the eGFR indicates Category G1 (>= 90 mL/min/1.73 m2) Lab Interpretation (test code = 58030-4) Abnormal [facility] with [id number] 05:27:44* Test Item Value Reference Range Interpretation Comme nts WBC (test code = 6690-2) 14.36 See_Comment H [Automated message] The system which generated this result transmitted reference range: 4.20 - 10.70 10*3/?L. The reference range was not used to interpret this result as normal/abnormal. RBC (test code = 789-8) 4.68 See_Comment [Automated message] The system which generated this result transmitted reference range: 4.26 - 5.52 10*6/?L. The reference range was not used to interpret this result as normal/abnormal. HGB (test code = 718-7) 14.8 g/dL 12.2-16.4 HCT (test code = 4544-3) 44.5 % 38.4-49.3 MCV (test code = 787-2) 95.1 fL 81.7-95.6 MCH (test code = 785-6) 31.6 pg 26.1-32.7 MCHC (test code = 786-4) 33.3 g/dL 31.2-35.0 RDW-SD (test code = 47711-3) 51.8 fL 38.5-51.6 H RDW-CV (test code = 788-0) 14.9 % 12.1-15.4 PLT (test code = 777-3) 433 See_Comment H [Automated message] The system which generated this result transmitted reference range: 150 - 328 10*3/?L. The reference range was not used to interpret this result as normal/abnormal. MPV (test code = 39082-5) 9.8 fL 9.8-13.0 NRBC/100 WBC (test code = 5463338905) 0.0 See_Comment [Automated message] The system which generated this result transmitted reference range: 0.0 - 10.0 /100 WBCs. The reference range was not used to interpret this result as normal/abnormal. NRBC x10^3 (test code = 2875236664) See_Comment [Automated message] The system which generated this result transmitted reference range: 10*3/?L. The reference range was not used to interpret this result as normal/abnormal. GRAN MAT (NEUT) % (test code = 770-8) 83.7 % IMM GRAN % (test code = 4178192513) 0.60 % LYMPH % (test code = 736-9) 6.3 % MONO % (test code = 5905-5) 6.5 % EOS % (test code = 713-8) 2.3 % BASO % (test code = 706-2) 0.6 % GRAN MAT x10^3(ANC) (test code = 7103574379) 12.01 10*3/uL 1.99-6.95 H IMM GRAN x10^3 (test code = 2923326243) 0.09 10*3/uL 0.00-0.06 H LYMPH x10^3 (test code = 731-0) 0.91 10*3/uL 1.09-3.23 L MONO x10^3 (test code = 742-7) 0.94 10*3/uL 0.36-1.02 EOS x10^3 (test code = 711-2) 0.33 10*3/uL 0.06-0.53 BASO x10^3 (test code = 704-7) 0.08 10*3/uL 0.01-0.09 Lab Interpretation (test code = 67541-6) Abnormal [facility] with Ofyb9080-64-08 05:27:44* Test Item Value Reference Range Interpretation Comme nts WBC (test code = 6690-2) 14.36 See_Comment H [Automated message] The system which generated this result transmitted reference range: 4.20 - 10.70 10*3/?L. The reference range was not used to interpret this result as normal/abnormal. RBC (test code = 789-8) 4.68 See_Comment [Automated message] The system which generated this result transmitted reference range: 4.26 - 5.52 10*6/?L. The reference range was not used to interpret this result as normal/abnormal. HGB (test code = 718-7) 14.8 g/dL 12.2-16.4 HCT (test code = 4544-3) 44.5 % 38.4-49.3 MCV (test code = 787-2) 95.1 fL 81.7-95.6 MCH (test code = 785-6) 31.6 pg 26.1-32.7 MCHC (test code = 786-4) 33.3 g/dL 31.2-35.0 RDW-SD (test code = 28673-1) 51.8 fL 38.5-51.6 H RDW-CV (test code = 788-0) 14.9 % 12.1-15.4 PLT (test code = 777-3) 433 See_Comment H [Automated message] The system which generated this result transmitted reference range: 150 - 328 10*3/?L. The reference range was not used to interpret this result as normal/abnormal. MPV (test code = 06674-6) 9.8 fL 9.8-13.0 NRBC/100 WBC (test code = 3017406737) 0.0 See_Comment [Automated message] The system which generated this result transmitted reference range: 0.0 - 10.0 /100 WBCs. The reference range was not used to interpret this result as normal/abnormal. NRBC x10^3 (test code = 5754802227) See_Comment [Automated message] The system which generated this result transmitted reference range: 10*3/?L. The reference range was not used to interpret this result as normal/abnormal. GRAN MAT (NEUT) % (test code = 770-8) 83.7 % IMM GRAN % (test code = 4190233026) 0.60 % LYMPH % (test code = 736-9) 6.3 % MONO % (test code = 5905-5) 6.5 % EOS % (test code = 713-8) 2.3 % BASO % (test code = 706-2) 0.6 % GRAN MAT x10^3(ANC) (test code = 9734081146) 12.01 10*3/uL 1.99-6.95 H IMM GRAN x10^3 (test code = 5048520832) 0.09 10*3/uL 0.00-0.06 H LYMPH x10^3 (test code = 731-0) 0.91 10*3/uL 1.09-3.23 L MONO x10^3 (test code = 742-7) 0.94 10*3/uL 0.36-1.02 EOS x10^3 (test code = 711-2) 0.33 10*3/uL 0.06-0.53 BASO x10^3 (test code = 704-7) 0.08 10*3/uL 0.01-0.09 Lab Interpretation (test code = 55830-1) [facility] (NA, K, CL, CO2, GLUCOSE, BUN, CREATININE, CA)2023-04-07 10:14:01* Test Item Value Reference Range Interpretation Comme nts NA (test code = 0228333479) 138 mmol/L 135-145 K (test code = 5888369514) 3.8 mmol/L 3.5-5.0 CL (test code = 5356130863) 103 mmol/L 98-108 CO2 TOTAL (test code = 0334287859) 33 mmol/L 23-31 H AGAP (test code = 3508575707) 2 2-16 BUN (test code = 1761925791) 8 mg/dL 7-23 GLUCOSE (test code = 6283050501) 99 mg/dL 70-110 CREATININE (test code = 2354527237) 0.59 mg/dL 0.60-1.25 L CALCIUM (test code = 1511306205) 8.7 mg/dL 8.6-10.6 eGFR (test code = 12983-6) 109.7 mL/min/1.73m2 CKD-EPI eGFR (2020). Assuming creatinine has been stable day-to-day for at least three months, the eGFR indicates Category G1 (>= 90 mL/min/1.73 m2) Lab Interpretation (test code = 78526-1) [facility] 10:14:01* Test Item Value Reference Range Interpretation Comme nts MAGNESIUM (test code = 3353660801) 1.9 mg/dL 1.7-2.4 Lab Interpretation (test cod e = 62570-9) [facility] 10:14:01* Test Item Value Reference Range Interpretation Comme nts PHOSPHORUS (test code = 7663348233) 3.6 mg/dL 2.5-5.0 Lab Interpretation (test cod e = 04364-4) Normal [facility] WITH [id number] 10:01:38* Test Item Value Reference Range Interpretation Comme nts WBC (test code = 6690-2) 4.71 See_Comment [Automated messa ge] The system which generated this result transmitted reference range: 4.20 - 10.70 10*3/?L. The reference range was not used to interpret this result as normal/abnormal. RBC (test code = 789-8) 3.73 See_Comment L [Automated messa ge] The system which generated this result transmitted reference range: 4.26 - 5.52 10*6/?L. The reference range was not used to interpret this result as normal/abnormal. HGB (test code = 718-7) 11.6 g/dL 12.2-16.4 L HCT (test code = 4544-3) 34.8 % 38.4-49.3 L MCV (test code = 787-2) 93.3 fL 81.7-95.6 MCH (test code = 785-6) 31.1 pg 26.1-32.7 MCHC (test code = 786-4) 33.3 g/dL 31.2-35.0 RDW-SD (test code = 21234-6) 52.5 fL 38.5-51.6 H RDW-CV (test code = 788-0) 15.3 % 12.1-15.4 PLT (test code = 777-3) 246 See_Comment [Automated messa ge] The system which generated this result transmitted reference range: 150 - 328 10*3/?L. The reference range was not used to interpret this result as normal/abnormal. MPV (test code = 32019-6) 9.5 fL 9.8-13.0 L NRBC/100 WBC (test code = 3489460345) 0.0 See_Comment [Automated [employer] ssage] The system which generated this result transmitted reference range: 0.0 - 10.0 /100 WBCs. The reference range was not used to interpret this result as normal/abnormal. NRBC x10^3 (test code = 3493395700) See_Comment [Automated messa ge] The system which generated this result transmitted reference range: 10*3/?L. The reference range was not used to interpret this result as normal/abnormal. GRAN MAT (NEUT) % (test code = 770-8) 63.5 % IMM GRAN % (test code = 9723916887) 0.40 % LYMPH % (test code = 736-9) 17.2 % MONO % (test code = 5905-5) 8.5 % EOS % (test code = 713-8) 9.1 % BASO % (test code = 706-2) 1.3 % GRAN MAT x10^3(ANC) (test code = 5848124073) 2.99 10*3/uL 1.99-6.95 IMM GRAN x10^3 (test code = 5139483172) 0.00-0.06 LYMPH x10^3 (test code = 731-0) 0.81 10*3/uL 1.09-3.23 L MONO x10^3 (test code = 742-7) 0.40 10*3/uL 0.36-1.02 EOS x10^3 (test code = 711-2) 0.43 10*3/uL 0.06-0.53 BASO x10^3 (test code = 704-7) 0.06 10*3/uL 0.01-0.09 Lab Interpretation (test code = 76240-8) Abnormal [facility] WITH [id number] 11:01:21* Test Item Value Reference Range Interpretation Comme nts WBC (test code = 6690-2) 5.01 See_Comment [Automated messa ge] The system which generated this result transmitted reference range: 4.20 - 10.70 10*3/?L. The reference range was not used to interpret this result as normal/abnormal. RBC (test code = 789-8) 3.56 See_Comment L [Automated messa ge] The system which generated this result transmitted reference range: 4.26 - 5.52 10*6/?L. The reference range was not used to interpret this result as normal/abnormal. HGB (test code = 718-7) 11.0 g/dL 12.2-16.4 L HCT (test code = 4544-3) 34.2 % 38.4-49.3 L MCV (test code = 787-2) 96.1 fL 81.7-95.6 H MCH (test code = 785-6) 30.9 pg 26.1-32.7 MCHC (test code = 786-4) 32.2 g/dL 31.2-35.0 RDW-SD (test code = 44747-2) 54.4 fL 38.5-51.6 H RDW-CV (test code = 788-0) 15.3 % 12.1-15.4 PLT (test code = 777-3) 224 See_Comment [Automated [employer] ge] The system which generated this result transmitted reference range: 150 - 328 10*3/?L. The reference range was not used to interpret this result as normal/abnormal. MPV (test code = 73853-2) 9.7 fL 9.8-13.0 L NRBC/100 WBC (test code = 9124979638) 0.0 See_Comment [Automated [employer] ssage] The system which generated this result transmitted reference range: 0.0 - 10.0 /100 WBCs. The reference range was not used to interpret this result as normal/abnormal. NRBC x10^3 (test code = 6192461178) See_Comment [Automated [employer] ge] The system which generated this result transmitted reference range: 10*3/?L. The reference range was not used to interpret this result as normal/abnormal. GRAN MAT (NEUT) % (test code = 770-8) 59.2 % IMM GRAN % (test code = 1083579345) 0.40 % LYMPH % (test code = 736-9) 21.2 % MONO % (test code = 5905-5) 9.6 % EOS % (test code = 713-8) 8.4 % BASO % (test code = 706-2) 1.2 % GRAN MAT x10^3(ANC) (test code = 8540425127) 2.97 10*3/uL 1.99-6.95 IMM GRAN x10^3 (test code = 4104769270) 0.00-0.06 LYMPH x10^3 (test code = 731-0) 1.06 10*3/uL 1.09-3.23 L MONO x10^3 (test code = 742-7) 0.48 10*3/uL 0.36-1.02 EOS x10^3 (test code = 711-2) 0.42 10*3/uL 0.06-0.53 BASO x10^3 (test code = 704-7) 0.06 10*3/uL 0.01-0.09 Lab Interpretation (test code = 02032-6) [facility] 10:50:59* Test Item Value Reference Range Interpretation Comme nts PHOSPHORUS (test code = 5979334822) 3.8 mg/dL 2.5-5.0 Lab Interpretation (test cod e = 34794-2) [facility] 10:50:59* Test Item Value Reference Range Interpretation Comme nts MAGNESIUM (test code = 2257057638) 1.9 mg/dL 1.7-2.4 Lab Interpretation (test cod e = 25348-9) [facility] (NA, K, CL, CO2, GLUCOSE, BUN, CREATININE, CA)2023-04-06 10:50:58* Test Item Value Reference Range Interpretation Comme nts NA (test code = 8386624804) 136 mmol/L 135-145 K (test code = 2536870356) 3.6 mmol/L 3.5-5.0 CL (test code = 4646893028) 103 mmol/L 98-108 CO2 TOTAL (test code = 5091946465) 31 mmol/L 23-31 AGAP (test code = 0587480646) 2 2-16 BUN (test code = 7351722524) 11 mg/dL 7-23 GLUCOSE (test code = 6535697432) 92 mg/dL 70-110 CREATININE (test code = 9861212504) 0.57 mg/dL 0.60-1.25 L CALCIUM (test code = 4759954665) 8.4 mg/dL 8.6-10.6 L eGFR (test code = 63352-5) 110.8 mL/min/1.73m2 CKD-EPI eGFR (2020). Assuming creatinine has been stable day-to-day for at least three months, the eGFR indicates Category G1 (>= 90 mL/min/1.73 m2) Lab Interpretation (test code = 62780-3) [facility] Draw within 30 minutes prior to next dose.2023-04-06 01:34:59* Test Item Value Reference Range Interpretation Comme nts VANCO TROUGH (test code = 2533709049) 10.3 ug/mL 10.0-20.0 ROSEANN (test code = ROSEANN) Toxic Range: ?>20 ug/mL 15-20 ug/mL is recommended for severe infection or when Vancomycin BALDEV is greater than or equal to 2. Lab Interpretation (test code = 92987-2) [facility] [facility]ENTER METABOLIC PANEL (NA, K, CL, CO2, GLUCOSE, BUN, CREATININE, CA)2023-04-04 12:08:34* Test Item Value Reference Range Interpretation Comme nts NA (test code = 9906798636) 137 mmol/L 135-145 K (test code = 2764374960) 4.1 mmol/L 3.5-5.0 CL (test code = 2135337434) 103 mmol/L 98-108 CO2 TOTAL (test code = 6019334531) 33 mmol/L 23-31 H AGAP (test code = 4262722545) 1 2-16 L BUN (test code = 9881923438) 10 mg/dL 7-23 GLUCOSE (test code = 2465136395) 153 mg/dL 70-110 H CREATININE (test code = 6651198577) 0.56 mg/dL 0.60-1.25 L CALCIUM (test code = 5256244019) 8.6 mg/dL 8.6-10.6 eGFR (test code = 65278-9) 111.4 mL/min/1.73m2 CKD-EPI eGFR (2020). Assuming creatinine has been stable day-to-day for at least three months, the eGFR indicates Category G1 (>= 90 mL/min/1.73 m2) Lab Interpretation (test code = 07338-0) [facility]* Test Item Value Reference Range Interpretation Comme nts MAGNESIUM (test code = 9543153934) 2.0 mg/dL 1.7-2.4 Lab Interpretation (test cod e = 29585-6) [facility]* Test Item Value Reference Range Interpretation Comme nts PHOSPHORUS (test code = 6733535133) 2.6 mg/dL 2.5-5.0 Lab Interpretation (test cod e = 65871-4) [facility] (NA, K, CL, CO2, GLUCOSE, BUN, CREATININE, CA)2023-04-04 12:08:34* Test Item Value Reference Range Interpretation Comme nts NA (test code = 1217167239) 137 mmol/L 135-145 K (test code = 3925580512) 4.1 mmol/L 3.5-5.0 CL (test code = 9495672220) 103 mmol/L 98-108 CO2 TOTAL (test code = 3270689293) 33 mmol/L 23-31 H AGAP (test code = 9836793003) 1 2-16 L BUN (test code = 3052616113) 10 mg/dL 7-23 GLUCOSE (test code = 9930980884) 153 mg/dL 70-110 H CREATININE (test code = 0255295515) 0.56 mg/dL 0.60-1.25 L CALCIUM (test code = 3474284243) 8.6 mg/dL 8.6-10.6 eGFR (test code = 06726-7) 111.4 mL/min/1.73m2 CKD-EPI eGFR (2020). Assuming creatinine has been stable day-to-day for at least three months, the eGFR indicates Category G1 (>= 90 mL/min/1.73 m2) Lab Interpretation (test code = 19199-8) [facility]* Test Item Value Reference Range Interpretation Comme nts MAGNESIUM (test code = 4527531974) 2.0 mg/dL 1.7-2.4 Lab Interpretation (test cod e = 68087-3) [facility] 12:08:[facility]* Test Item Value Reference Range Interpretation Comme nts PHOSPHORUS (test code = 6142715262) 2.6 mg/dL 2.5-5.0 Lab Interpretation (test cod e = 21866-9) Normal [facility] WITH [id number] 11:42:54* Test Item Value Reference Range Interpretation Comme nts WBC (test code = 6690-2) 5.67 See_Comment [Automated messa ge] The system which generated this result transmitted reference range: 4.20 - 10.70 10*3/?L. The reference range was not used to interpret this result as normal/abnormal. RBC (test code = 789-8) 3.37 See_Comment L [Automated messa ge] The system which generated this result transmitted reference range: 4.26 - 5.52 10*6/?L. The reference range was not used to interpret this result as normal/abnormal. HGB (test code = 718-7) 10.5 g/dL 12.2-16.4 L HCT (test code = 4544-3) 31.9 % 38.4-49.3 L MCV (test code = 787-2) 94.7 fL 81.7-95.6 MCH (test code = 785-6) 31.2 pg 26.1-32.7 MCHC (test code = 786-4) 32.9 g/dL 31.2-35.0 RDW-SD (test code = 89410-9) 53.1 fL 38.5-51.6 H RDW-CV (test code = 788-0) 15.3 % 12.1-15.4 PLT (test code = 777-3) 223 See_Comment [Automated messa ge] The system which generated this result transmitted reference range: 150 - 328 10*3/?L. The reference range was not used to interpret this result as normal/abnormal. MPV (test code = 63615-3) 10.2 fL 9.8-13.0 NRBC/100 WBC (test code = 8868011271) 0.0 See_Comment [Automated me ssage] The system which generated this result transmitted reference range: 0.0 - 10.0 /100 WBCs. The reference range was not used to interpret this result as normal/abnormal. NRBC x10^3 (test code = 7046819864) See_Comment [Automated messa ge] The system which generated this result transmitted reference range: 10*3/?L. The reference range was not used to interpret this result as normal/abnormal. GRAN MAT (NEUT) % (test code = 770-8) 85.8 % IMM GRAN % (test code = 4176482203) 0.40 % LYMPH % (test code = 736-9) 6.7 % MONO % (test code = 5905-5) 6.7 % EOS % (test code = 713-8) 0.2 % BASO % (test code = 706-2) 0.2 % GRAN MAT x10^3(ANC) (test code = 0537044121) 4.87 10*3/uL 1.99-6.95 IMM GRAN x10^3 (test code = 0449043809) 0.00-0.06 LYMPH x10^3 (test code = 731-0) 0.38 10*3/uL 1.09-3.23 L MONO x10^3 (test code = 742-7) 0.38 10*3/uL 0.36-1.02 EOS x10^3 (test code = 711-2) 0.06-0.53 L BASO x10^3 (test code = 704-7) 0.01-0.09 Lab Interpretation (test code = 82157-0) Abnormal [facility] WITH [id number] 11:42:54* Test Item Value Reference Range Interpretation Comme nts WBC (test code = 6690-2) 5.67 See_Comment [Automated messa ge] The system which generated this result transmitted reference range: 4.20 - 10.70 10*3/?L. The reference range was not used to interpret this result as normal/abnormal. RBC (test code = 789-8) 3.37 See_Comment L [Automated messa ge] The system which generated this result transmitted reference range: 4.26 - 5.52 10*6/?L. The reference range was not used to interpret this result as normal/abnormal. HGB (test code = 718-7) 10.5 g/dL 12.2-16.4 L HCT (test code = 4544-3) 31.9 % 38.4-49.3 L MCV (test code = 787-2) 94.7 fL 81.7-95.6 MCH (test code = 785-6) 31.2 pg 26.1-32.7 MCHC (test code = 786-4) 32.9 g/dL 31.2-35.0 RDW-SD (test code = 05203-9) 53.1 fL 38.5-51.6 H RDW-CV (test code = 788-0) 15.3 % 12.1-15.4 PLT (test code = 777-3) 223 See_Comment [Automated messa ge] The system which generated this result transmitted reference range: 150 - 328 10*3/?L. The reference range was not used to interpret this result as normal/abnormal. MPV (test code = 99853-5) 10.2 fL 9.8-13.0 NRBC/100 WBC (test code = 9390215628) 0.0 See_Comment [Automated [employer] ssage] The system which generated this result transmitted reference range: 0.0 - 10.0 /100 WBCs. The reference range was not used to interpret this result as normal/abnormal. NRBC x10^3 (test code = 3554118737) See_Comment [Automated messa ge] The system which generated this result transmitted reference range: 10*3/?L. The reference range was not used to interpret this result as normal/abnormal. GRAN MAT (NEUT) % (test code = 770-8) 85.8 % IMM GRAN % (test code = 5590275770) 0.40 % LYMPH % (test code = 736-9) 6.7 % MONO % (test code = 5905-5) 6.7 % EOS % (test code = 713-8) 0.2 % BASO % (test code = 706-2) 0.2 % GRAN MAT x10^3(ANC) (test code = 3232166976) 4.87 10*3/uL 1.99-6.95 IMM GRAN x10^3 (test code = 2316255288) 0.00-0.06 LYMPH x10^3 (test code = 731-0) 0.38 10*3/uL 1.09-3.23 L MONO x10^3 (test code = 742-7) 0.38 10*3/uL 0.36-1.02 EOS x10^3 (test code = 711-2) 0.06-0.53 L BASO x10^3 (test code = 704-7) 0.01-0.09 Lab Interpretation (test code = 52674-5) Abnormal [facility] [id number] 19:41:36* Test Item Value Reference Range Interpretation Comme nts ACTHR (test code = 9112182007) 255 See_Comment H [Automated messa ge] The system which generated this result transmitted reference range: 96 - 152 Seconds. The reference range was not used to interpret this result as normal/abnormal. Lab Interpretation (test code = 39943-3) Abnormal [facility] [id number] 19:41:36* Test Item Value Reference Range Interpretation Comme nts ACTHR (test code = 6907342422) 255 See_Comment H [Automated messa ge] The system which generated this result transmitted reference range: 96 - 152 Seconds. The reference range was not used to interpret this result as normal/abnormal. Lab Interpretation (test code = 98452-2) Abnormal [facility] [id number] 18:19:05* Test Item Value Reference Range Interpretation Comme nts ACTHR (test code = 8169464790) 219 See_Comment H [Automated messa ge] The system which generated this result transmitted reference range: 96 - 152 Seconds. The reference range was not used to interpret this result as normal/abnormal. Lab Interpretation (test code = 65839-0) Abnormal [facility] [id number] 18:19:05* Test Item Value Reference Range Interpretation Comme nts ACTHR (test code = 1239347211) 219 See_Comment H [Automated messa ge] The system which generated this result transmitted reference range: 96 - 152 Seconds. The reference range was not used to interpret this result as normal/abnormal. Lab Interpretation (test code = 39991-5) Abnormal [facility] [id number] 18:05:23* Test Item Value Reference Range Interpretation Comme nts ACTHR (test code = 5557307420) 201 See_Comment H [Automated messa ge] The system which generated this result transmitted reference range: 96 - 152 Seconds. The reference range was not used to interpret this result as normal/abnormal. Lab Interpretation (test code = 33327-2) Abnormal [facility] [id number] 18:05:23* Test Item Value Reference Range Interpretation Comme nts ACTHR (test code = 4562560719) 201 See_Comment H [Automated messa ge] The system which generated this result transmitted reference range: 96 - 152 Seconds. The reference range was not used to interpret this result as normal/abnormal. Lab Interpretation (test code = 03903-6) Abnormal [facility] [id number] 17:53:02* Test Item Value Reference Range Interpretation Comme nts ACTHR (test code = 7800459610) 163 See_Comment H [Automated messa ge] The system which generated this result transmitted reference range: 96 - 152 Seconds. The reference range was not used to interpret this result as normal/abnormal. Lab Interpretation (test code = 51333-6) Abnormal [facility] [id number] 17:53:02* Test Item Value Reference Range Interpretation Comme nts ACTHR (test code = 5517919137) 163 See_Comment H [Automated messa ge] The system which generated this result transmitted reference range: 96 - 152 Seconds. The reference range was not used to interpret this result as normal/abnormal. Lab Interpretation (test code = 75043-0) [facility] 2023-03-30 21:37:09* Test Item Value Reference Range Interpretation Comme nts Height (test code = 6183539734) 72 in Weight (test code = 9479163112) 138 lbs Systolic BP (test code = 7413982320) 115 mmHg Diastolic BP (test code = 3535581630) 74 mmHg Heart Rate (test code = 3554892689) 78 bpm BSA (test code = 4394067335) 1.[address] Depresion (mm) (test code = 6224116390) 0 mm Radiology Study observation (narrative) (test code = 87301-0) ROSEANN (test code = ROSEANN) Table formatting from the original result was not included. ?Stress: A pharmacological stress test was performed using dobutamine. The patient reported no symptoms during the stress test. Blood pressure demonstrated a hypotensive response and heart rate demonstrated a normal response to stress. The patient's heart rate recovery was normal. ?Stress?ECG: Sinus tachycardia. ?No significant ST depression. There were no arrhythmias during stress. There were no arrhythmias during recovery. The ECG was negative for ischemia. ?Post-stress: The post-stress echo shows appropriate increased thickness to all myocardial segments. Left ventricle cavity appears normal post-stress. The left ventricle systolic function is hyperdynamic post-stress. The post-stress echo showed normal wall motion which was hyperdynamic compared to baseline. ?Post-stress?Impression: Adequate inotropic response, adequate chronotropic response but hypotensive response to stress test but patient was asymptomatic. This is a negative stress echocardiography study for inducible ischemia. The ECG and Echo portions of the stress study are concordant with no evidence of inducible myocardial ischemia. ?Please see full TTE report from same day for baseline Echocardiogram. Tom Jon MD Stress ResultsProtocol: DSE Maximum Predicted HR: 158 Target HR: 134 % Maximum Predicted HR: 99 Stage Duration (mm:ss) Heart Rate (bpm) BP Dose Comment Baseline ?79 115/64 ?Definity 2mL Peak 15:41 148 89/40 30 THR Achieved Recovery 4 4:00 130 88/57 ? ?Recovery 10 10:00 97 81/56 ? ?Add'l Recovery ?Stress Duration: 15:41 Recovery Time: 10:00 Maximum Stress HR: 148 ? Study DetailsStudy quality was adequate. A Dobutamine stress echocardiogram was performed using 2D. 2 mL of Definity ultrasound enhancing agent used.Resting ECGNormal sinus rhythm. Resting ECG shows no ST-segment deviation.Stress FindingsA pharmacological stress test was performed using dobutamine. The patient reported no symptoms during the stress test. Blood pressure demonstrated a hypotensive response and heart rate demonstrated a normal response to stress. The patient's heart rate recovery was normal.Stress ECGSinus tachycardia. No significant ST depression.There were no arrhythmias during stress. There were no arrhythmias during recovery. The ECG was negative for ischemia.Echo Post StressThe post-stress echo shows appropriate increased thickness to all myocardial segments. Left ventricle cavity appears normal post-stress. The left ventricle systolic function is hyperdynamic post-stress. The post-stress echo showed normal wall motion which was hyperdynamic compared to baseline.Study ImpressionAdequate inotropic response, adequate chronotropic response but hypotensive response to stress test but patient was asymptomatic. This is a negative stress echocardiography study for inducible ischemia. The ECG and Echo portions of the stress study are concordant with no evidence of inducible myocardial ischemia.Wall Scoring BaselineScore Index: 1.00The left ventricular wall motion is normal.Wall Scoring Peak DoseScore Index: 1.00The left ventricular wall motion is globally hyperkinetic. [facility] do[facility] 2023-03-30 21:37:09* Test Item Value Reference Range Interpretation Comme nts Height (test code = 1434212522) 72 in Weight (test code = 3772838172) 138 lbs Systolic BP (test code = 7148056820) 115 mmHg Diastolic BP (test code = 4679279971) 74 mmHg Heart Rate (test code = 3543858995) 78 bpm BSA (test code = 9896927668) 1.[address] Depresion (mm) (test code = 4524919252) 0 mm Radiology Study observation (narrative) (test code = 62865-5) ROSEANN (test code = ROSEANN) Table formatting from the original result was not included. ?Stress: A pharmacological stress test was performed using dobutamine. The patient reported no symptoms during the stress test. Blood pressure demonstrated a hypotensive response and heart rate demonstrated a normal response to stress. The patient's heart rate recovery was normal. ?Stress?ECG: Sinus tachycardia. ?No significant ST depression. There were no arrhythmias during stress. There were no arrhythmias during recovery. The ECG was negative for ischemia. ?Post-stress: The post-stress echo shows appropriate increased thickness to all myocardial segments. Left ventricle cavity appears normal post-stress. The left ventricle systolic function is hyperdynamic post-stress. The post-stress echo showed normal wall motion which was hyperdynamic compared to baseline. ?Post-stress?Impression: Adequate inotropic response, adequate chronotropic response but hypotensive response to stress test but patient was asymptomatic. This is a negative stress echocardiography study for inducible ischemia. The ECG and Echo portions of the stress study are concordant with no evidence of inducible myocardial ischemia. ?Please see full TTE report from same day for baseline Echocardiogram. Tom Jon MD Stress ResultsProtocol: DSE Maximum Predicted HR: 158 Target HR: 134 % Maximum Predicted HR: 99 Stage Duration (mm:ss) Heart Rate (bpm) BP Dose Comment Baseline ?79 115/64 ?Definity 2mL Peak 15:41 148 89/40 30 THR Achieved Recovery 4 4:00 130 88/57 ? ?Recovery 10 10:00 97 81/56 ? ?Add'l Recovery ?Stress Duration: 15:41 Recovery Time: 10:00 Maximum Stress HR: 148 ? Study DetailsStudy quality was adequate. A Dobutamine stress echocardiogram was performed using 2D. 2 mL of Definity ultrasound enhancing agent used.Resting ECGNormal sinus rhythm. Resting ECG shows no ST-segment deviation.Stress FindingsA pharmacological stress test was performed using dobutamine. The patient reported no symptoms during the stress test. Blood pressure demonstrated a hypotensive response and heart rate demonstrated a normal response to stress. The patient's heart rate recovery was normal.Stress ECGSinus tachycardia. No significant ST depression.There were no arrhythmias during stress. There were no arrhythmias during recovery. The ECG was negative for ischemia.Echo Post StressThe post-stress echo shows appropriate increased thickness to all myocardial segments. Left ventricle cavity appears normal post-stress. The left ventricle systolic function is hyperdynamic post-stress. The post-stress echo showed normal wall motion which was hyperdynamic compared to baseline.Study ImpressionAdequate inotropic response, adequate chronotropic response but hypotensive response to stress test but patient was asymptomatic. This is a negative stress echocardiography study for inducible ischemia. The ECG and Echo portions of the stress study are concordant with no evidence of inducible myocardial ischemia.Wall Scoring BaselineScore Index: 1.00The left ventricular wall motion is normal.Wall Scoring Peak DoseScore Index: 1.00The left ventricular wall motion is globally hyperkinetic. [facility] 20:40:28* Test Item Value Reference Range Interpretation Comme nts Height (test code = 8498981558) 72 in Weight (test code = 3046952094) 138 lbs Systolic BP (test code = 3565950882) 109 mmHg Diastolic BP (test code = 0329679005) 70 mmHg Heart Rate (test code = 4886979244) 91 bpm BSA (test code = 4107583538) 1.82 m2 MV Peak E Flor (test code = 5387032124) 61.3 cm/s E wave decelartion time (test code = 0000649451) 0.17 s MV Peak A Flor (test code = 5523505104) 79.3 cm/s E/A ratio (test code = 3743164920) 0.77 ratio LAV(MOD-sp4) (test code = 6924974995) 17.70 mL LVOT peak flor (test code = 2739666920) 111.0 cm/s LVOT mn grad (test code = 0070042591) 2.4 mmHg AV LVOT peak gradient (test code = 3220521336) 4.9 mmHg LVOT peak VTI (test code = 4279456809) 17.0 cm LV V1 mean (test code = 4660099594) 72.20 cm/s TR Peak Flor (test code = 0514715825) 271.5 cm/s Triscuspid Valve Regurgitation Peak Gradient (test code = 2491373762) 29.5 mmHg Aortic valve mean velocity (test code = 1367772116) 75.9 cm/s Ao peak flor (test code = 2907277500) 117.0 cm/s Ao VTI (test code = 8709048803) 18.4 cm Ao max PG (test code = 8138978569) 5.50 mm[Hg] AV peak gradient (test code = 6381921676) 5.5 mmHg AV mean gradient (test code = 8084508508) 2.6 mmHg Inferior Vena Cava Diameter (test code = 5278135435) 1.75 cm IVC Expiration Diameter (test code = 5962214487) 0.69 cm Radiology Study observation (narrative) (test code = 59437-3) ROSEANN (test code = ROSEANN) ?Left?Ventricle: Left ventricle size is normal. Normal wall thickness. Normal wall motion. No regional wall motion abnormalities. Normal systolic function with a visually estimated EF of 55 - 60%. There is grade 1 diastolic dysfunction. Normal left ventricular filling pressure. ?Right?Ventricle: Right ventricle is normal in size and function. ?Tricuspid?Valve: Trace transvalvular regurgitation. Right ventricular systolic pressure is 30-35 mmHg. ?RA pressure is 0-5 mmHg. ?Pericardium: No pericardial effusion. Girish Thornton, [facility] [facility] [place] Medicine FellowUniversity of Texas Medical BranchLeft VentricleLeft ventricle size is normal. Normal wall thickness. Normal wall motion. No regional wall motion abnormalities. Normal systolic function with a visually estimated EF of 55 - 60%. There is grade 1 diastolic dysfunction. Normal left ventricular filling pressure.Right VentricleRight ventricle is normal in size and function.Left AtriumLeft atrium size is normal.Right AtriumRight atrium size is normal.IVC/SVCIVC diameter is less than or equal to 21 mm and decreases greater than 50% during inspiration; therefore the estimated right atrial pressure is normal (~0-5 mmHg). IVC normal in size.Mitral ValveMitral valve structure is normal. No transvalvular regurgitation. No stenosis.Tricuspid ValveNot well visualized. Trace transvalvular regurgitation. Right ventricular systolic pressure is 30-35 mmHg. RA pressure is 0-5 mmHg.Aortic ValveNot well visualized. No transvalvular regurgitation. No hemodynamically significant .Pulmonic ValveNot well visualized.Ascending AortaNot well visualized.PericardiumNo pericardial effusion.Study DetailsA complete echocardiogram was performed using 2D, color flow Doppler and spectral Doppler. 5 mL of Lumason ultrasound enhancing agent used. [facility] 20:40:28* Test Item Value Reference Range Interpretation Comme nts Height (test code = 4123529797) 72 in Weight (test code = 6977925662) 138 lbs Systolic BP (test code = 2564252892) 109 mmHg Diastolic BP (test code = 4086254664) 70 mmHg Heart Rate (test code = 6756031524) 91 bpm BSA (test code = 0973061224) 1.82 m2 MV Peak E Flor (test code = 0790322684) 61.3 cm/s E wave decelartion time (test code = 2895760676) 0.17 s MV Peak A Flor (test code = 0473267281) 79.3 cm/s E/A ratio (test code = 3014447761) 0.77 ratio LAV(MOD-sp4) (test code = 3269482648) 17.70 mL LVOT peak flor (test code = 2843668526) 111.0 cm/s LVOT mn grad (test code = 0936978238) 2.4 mmHg AV LVOT peak gradient (test code = 7274551345) 4.9 mmHg LVOT peak VTI (test code = 7906288578) 17.0 cm LV V1 mean (test code = 9461042193) 72.20 cm/s TR Peak Flor (test code = 8883676130) 271.5 cm/s Triscuspid Valve Regurgitation Peak Gradient (test code = 2019678681) 29.5 mmHg Aortic valve mean velocity (test code = 1733304919) 75.9 cm/s Ao peak flor (test code = 8914432659) 117.0 cm/s Ao VTI (test code = 7611900047) 18.4 cm Ao max PG (test code = 1825831659) 5.50 mm[Hg] AV peak gradient (test code = 3815066389) 5.5 mmHg AV mean gradient (test code = 0222838689) 2.6 mmHg Inferior Vena Cava Diameter (test code = 3907098247) 1.75 cm IVC Expiration Diameter (test code = 6824772330) 0.69 cm Radiology Study observation (narrative) (test code = 77604-8) ROSEANN (test code = ROSEANN) ?Left?Ventricle: Left ventricle size is normal. Normal wall thickness. Normal wall motion. No regional wall motion abnormalities. Normal systolic function with a visually estimated EF of 55 - 60%. There is grade 1 diastolic dysfunction. Normal left ventricular filling pressure. ?Right?Ventricle: Right ventricle is normal in size and function. ?Tricuspid?Valve: Trace transvalvular regurgitation. Right ventricular systolic pressure is 30-35 mmHg. ?RA pressure is 0-5 mmHg. ?Pericardium: No pericardial effusion. Girish Thornton, [facility] [place] Medicine FellowUnCrete Area Medical Center VentricleLeft ventricle size is normal. Normal wall thickness. Normal wall motion. No regional wall motion abnormalities. Normal systolic function with a visually estimated EF of 55 - 60%. There is grade 1 diastolic dysfunction. Normal left ventricular filling pressure.Right VentricleRight ventricle is normal in size and function.Left AtriumLeft atrium size is normal.Right AtriumRight atrium size is normal.IVC/SVCIVC diameter is less than or equal to 21 mm and decreases greater than 50% during inspiration; therefore the estimated right atrial pressure is normal (~0-5 mmHg). IVC normal in size.Mitral ValveMitral valve structure is normal. No transvalvular regurgitation. No stenosis.Tricuspid ValveNot well visualized. Trace transvalvular regurgitation. Right ventricular systolic pressure is 30-35 mmHg. RA pressure is 0-5 mmHg.Aortic ValveNot well visualized. No transvalvular regurgitation. No hemodynamically significant .Pulmonic ValveNot well visualized.Ascending AortaNot well visualized.PericardiumNo pericardial effusion.Study DetailsA complete echocardiogram was performed using 2D, color flow Doppler and spectral Doppler. 5 mL of Lumason ultrasound enhancing agent used. [facility]30 20:01:13* Test Item Value Reference Range Interpretation Comme nts APTT Patient (test code = 3173-2) 42 See_Comment H [Automated [employer]] The system which generated this result transmitted reference range: 26 - 36 Seconds. The reference range was not used to interpret this result as normal/abnormal. Lab Interpretation (test code = 17745-6) Abnormal [facility] (for use with Heparin Drip)2023-03-30 20:01:13* Test Item Value Reference Range Interpretation Comme [facility] APTT Patient (test code = 3173-2) 42 See_Comment H [Automated [employer]] The system which generated this result transmitted reference range: 26 - 36 Seconds. The reference range was not used to interpret this result as normal/abnormal. Lab Interpretation (test code = 95462-5) [facility] [id number] 19:35:52* Test Item Value Reference Range Interpretation Comme [facility] LACTIC ACID (test code = 3072964225) 1.18 mmol/L 0.50-2.20 Lab Interpretation (test cod e = 42608-6) Normal [facility] [id number] 19:35:52* Test Item Value Reference Range Interpretation Comme [facility] LACTIC ACID (test code = 9814970334) 1.18 mmol/L 0.50-2.20 Lab Interpretation (test cod e = 85938-1) Normal [facility] CenterSED[facility] [id number] 20:38:48* Test Item Value Reference Range Interpretation Comme nts ESR (test code = 73656-4) 4 See_Comment [Automated message] The system which generated this result transmitted reference range: 0 - 10 mm/HR. The reference range was not used to interpret this result as normal/abnormal. Lab Interpretation (test code = 59540-6) [facility] MET[facility]OLIC PAN[facility] (56887)2023-02-19 20:31:04* Test Item Value Reference Range Interpretation Comme nts NA (test code = 8370562043) 139 mmol/L 135-145 K (test code = 8919055745) 3.9 mmol/L 3.5-5.0 CL (test code = 9631795949) 103 mmol/L 98-108 CO2 TOTAL (test code = 9685000829) 28 mmol/L 23-31 AGAP (test code = 3695311486) 8 2-16 BUN (test code = 7734225413) 5 mg/dL 7-23 L GLUCOSE (test code = 4808307752) 106 mg/dL 70-110 CREATININE (test code = 1283967288) 0.78 mg/dL 0.60-1.25 TOTAL BILI (test code = 4163974194) 0.4 mg/dL 0.1-1.1 CALCIUM (test code = 2524251635) 8.9 mg/dL 8.6-10.6 T PROTEIN (test code = 3753246942) 6.6 g/dL 6.3-8.2 ALBUMIN (test code = 0019700249) 3.7 g/dL 3.5-5.0 ALK PHOS (test code = 6839901427) 92 U/L 34-122 ALTv (test code = 1742-6) 15 U/L 5-50 AST(SGOT) (test code = 4899223050) 19 U/L 13-40 eGFR (test code = 1893833506) 100.9 mL/min/1.73m2 ROSEANN (test code = ROSEANN) Association of [...] or abnormalities in imaging tests). Lab Interpretation (test code = 37878-4) Abnormal [facility] WITH [id number] 20:19:03* Test Item Value Reference Range Interpretation Comme nts WBC (test code = 6690-2) 6.48 See_Comment [Automated [employer]roid] The system which generated this result transmitted reference range: 4.20 - 10.70 10*3/?L. The reference range was not used to interpret this result as normal/abnormal. RBC (test code = 789-8) 4.98 See_Comment [Automated [employer]] The system which generated this result transmitted reference range: 4.26 - 5.52 10*6/?L. The reference range was not used to interpret this result as normal/abnormal. HGB (test code = 718-7) 15.4 g/dL 12.2-16.4 HCT (test code = 4544-3) 46.6 % 38.4-49.3 MCV (test code = 787-2) 93.6 fL 81.7-95.6 MCH (test code = 785-6) 30.9 pg 26.1-32.7 MCHC (test code = 786-4) 33.0 g/dL 31.2-35.0 RDW-SD (test code = 59562-8) 50.2 fL 38.5-51.6 RDW-CV (test code = 788-0) 14.6 % 12.1-15.4 PLT (test code = 777-3) 293 See_Comment [Automated messa ge] The system which generated this result transmitted reference range: 150 - 328 10*3/?L. The reference range was not used to interpret this result as normal/abnormal. MPV (test code = 21148-3) 9.6 fL 9.8-13.0 L NRBC/100 WBC (test code = 6692990451) 0.0 See_Comment [Automated [employer] ssage] The system which generated this result transmitted reference range: 0.0 - 10.0 /100 WBCs. The reference range was not used to interpret this result as normal/abnormal. NRBC x10^3 (test code = 4285927241) See_Comment [Automated messa ge] The system which generated this result transmitted reference range: 10*3/?L. The reference range was not used to interpret this result as normal/abnormal. GRAN MAT (NEUT) % (test code = 770-8) 67.4 % IMM GRAN % (test code = 0147644269) 0.80 % LYMPH % (test code = 736-9) 19.0 % MONO % (test code = 5905-5) 6.8 % EOS % (test code = 713-8) 4.9 % BASO % (test code = 706-2) 1.1 % GRAN MAT x10^3(ANC) (test code = 6036249417) 4.37 10*3/uL 1.99-6.95 IMM GRAN x10^3 (test code = 8293502645) 0.05 10*3/uL 0.00-0.06 LYMPH x10^3 (test code = 731-0) 1.23 10*3/uL 1.09-3.23 MONO x10^3 (test code = 742-7) 0.44 10*3/uL 0.36-1.02 EOS x10^3 (test code = 711-2) 0.32 10*3/uL 0.06-0.53 BASO x10^3 (test code = 704-7) 0.07 10*3/uL 0.01-0.09 Lab Interpretation (test code = 45301-5) Abnormal [facility] METABOLIC PANEL (NA, K, CL, CO2, GLUCOSE, BUN, CREATININE, CA)2022-12-27 12:01:54* Test Item Value Reference Range Interpretation Comme nts NA (test code = 5124987362) 139 mmol/L 135-145 K (test code = 6001360809) 3.5 mmol/L 3.5-5.0 CL (test code = 8408590370) 106 mmol/L 98-108 CO2 TOTAL (test code = 4270125245) 32 mmol/L 23-31 H AGAP (test code = 7945667285) 1 2-16 L BUN (test code = 3843557805) 11 mg/dL 7-23 GLUCOSE (test code = 0643003866) 94 mg/dL 70-110 CREATININE (test code = 0520537800) 0.65 mg/dL 0.60-1.25 CALCIUM (test code = 9086964365) 8.4 mg/dL 8.6-10.6 L eGFR (test code = 2817795571) 124.9 mL/min/1.73m2 ROSEANN (test code = ROSEANN) Association of [...] or abnormalities in imaging tests). Lab Interpretation (test code = 81046-3) [facility] Center[facility] 12:01:54* Test Item Value Reference Range Interpretation Comme nts MAGNESIUM (test code = 8446805730) 2.4 mg/dL 1.7-2.4 Lab Interpretation (test cod e = 36745-0) Normal [facility] WITH [id number] 11:40:15* Test Item Value Reference Range Interpretation Comme nts WBC (test code = 6690-2) 8.14 See_Comment [Automated messa ge] The system which generated this result transmitted reference range: 4.20 - 10.70 10*3/?L. The reference range was not used to interpret this result as normal/abnormal. RBC (test code = 789-8) 4.19 See_Comment L [Automated messa ge] The system which generated this result transmitted reference range: 4.26 - 5.52 10*6/?L. The reference range was not used to interpret this result as normal/abnormal. HGB (test code = 718-7) 12.7 g/dL 12.2-16.4 HCT (test code = 4544-3) 38.1 % 38.4-49.3 L MCV (test code = 787-2) 90.9 fL 81.7-95.6 MCH (test code = 785-6) 30.3 pg 26.1-32.7 MCHC (test code = 786-4) 33.3 g/dL 31.2-35.0 RDW-SD (test code = 18949-4) 48.2 fL 38.5-51.6 RDW-CV (test code = 788-0) 14.5 % 12.1-15.4 PLT (test code = 777-3) 257 See_Comment [Automated messa ge] The system which generated this result transmitted reference range: 150 - 328 10*3/?L. The reference range was not used to interpret this result as normal/abnormal. MPV (test code = 52990-0) 9.6 fL 9.8-13.0 L NRBC/100 WBC (test code = 2711509730) 0.0 See_Comment [Automated [employer] ssage] The system which generated this result transmitted reference range: 0.0 - 10.0 /100 WBCs. The reference range was not used to interpret this result as normal/abnormal. NRBC x10^3 (test code = 3686108906) See_Comment [Automated messa ge] The system which generated this result transmitted reference range: 10*3/?L. The reference range was not used to interpret this result as normal/abnormal. GRAN MAT (NEUT) % (test code = 770-8) 73.0 % IMM GRAN % (test code = 9040165922) 0.60 % LYMPH % (test code = 736-9) 19.4 % MONO % (test code = 5905-5) 5.8 % EOS % (test code = 713-8) 1.1 % BASO % (test code = 706-2) 0.1 % GRAN MAT x10^3(ANC) (test code = 5320694579) 5.94 10*3/uL 1.99-6.95 IMM GRAN x10^3 (test code = 6009094496) 0.05 10*3/uL 0.00-0.06 LYMPH x10^3 (test code = 731-0) 1.58 10*3/uL 1.09-3.23 MONO x10^3 (test code = 742-7) 0.47 10*3/uL 0.36-1.02 EOS x10^3 (test code = 711-2) 0.09 10*3/uL 0.06-0.53 BASO x10^3 (test code = 704-7) 0.01-0.09 Lab Interpretation (test code = 00851-0) [facility] + LACTIC [id number] 18:19:07* Test Item Value Reference Range Interpretation Comme nts PH (test code = 3153750110) 7.33 7.32-7.42 PCO2 LARRY (test code = 0706270748) 50 See_Comment [Automated messa ge] The system which generated this result transmitted reference range: 41 - 51 mmHg. The reference range was not used to interpret this result as normal/abnormal. PO2 LARRY (test code = 8144007034) 60 See_Comment HH [Automated messa ge] The system which generated this result transmitted reference range: 25 - 40 mmHg. The reference range was not used to interpret this result as normal/abnormal. HCO3 LARRY (test code = 8778471824) 26 See_Comment [Automated messa ge] The system which generated this result transmitted reference range: 24 - 28 mEq/L. The reference range was not used to interpret this result as normal/abnormal. AC VBE(BEAKER) (test code = 8427653784) -0.4 mEq/L THB LARRY (test code = 1448800156) 14.6 g/dL 13.5-18.0 %O2HB LARRY (test code = 7057751691) 87.9 % 52.0-63.0 H %COHB LARRY (test code = 0794733184) 3.4 % 0.0-1.5 H %METHB LARRY (test code = 3970000194) 0.1 % 0.4-1.5 L VOL%O2 LARRY (test code = 1785401859) 18.0 % 6.0-12.0 H NA (test code = 9299810088) 136 mmol/L 135-145 K+ (test code = 4318387589) 5.8 mmol/L 3.5-5.0 H AC CA IONZ (test code = 8960813469) 4.30 mg/dL 4.50-5.30 L GLUCOSE (test code = 6027825229) 128 mg/dL 70-110 H LACTIC ACID (test code = 0109080165) 0.69 mmol/L 0.50-2.20 Lab Interpretation (test code = 65527-2) Abnormal [facility] WITH [id number] 14:21:49* Test Item Value Reference Range Interpretation Comme nts WBC (test code = 6690-2) 6.89 See_Comment [Automated messa ge] The system which generated this result transmitted reference range: 4.20 - 10.70 10*3/?L. The reference range was not used to interpret this result as normal/abnormal. RBC (test code = 789-8) 4.84 See_Comment [Automated messa ge] The system which generated this result transmitted reference range: 4.26 - 5.52 10*6/?L. The reference range was not used to interpret this result as normal/abnormal. HGB (test code = 718-7) 14.7 g/dL 12.2-16.4 HCT (test code = 4544-3) 44.3 % 38.4-49.3 MCV (test code = 787-2) 91.5 fL 81.7-95.6 MCH (test code = 785-6) 30.4 pg 26.1-32.7 MCHC (test code = 786-4) 33.2 g/dL 31.2-35.0 RDW-SD (test code = 47850-6) 48.6 fL 38.5-51.6 RDW-CV (test code = 788-0) 14.4 % 12.1-15.4 PLT (test code = 777-3) 309 See_Comment [Automated [employer]] The system which generated this result transmitted reference range: 150 - 328 10*3/?L. The reference range was not used to interpret this result as normal/abnormal. MPV (test code = 04431-1) 9.5 fL 9.8-13.0 L NRBC/100 WBC (test code = 2761915798) 0.0 See_Comment [Automated [employer] ssage] The system which generated this result transmitted reference range: 0.0 - 10.0 /100 WBCs. The reference range was not used to interpret this result as normal/abnormal. NRBC x10^3 (test code = 4953462977) See_Comment [Automated [employer] ge] The system which generated this result transmitted reference range: 10*3/?L. The reference range was not used to interpret this result as normal/abnormal. GRAN MAT (NEUT) % (test code = 770-8) 62.8 % IMM GRAN % (test code = 4196661942) 0.70 % LYMPH % (test code = 736-9) 23.1 % MONO % (test code = 5905-5) 8.6 % EOS % (test code = 713-8) 3.5 % BASO % (test code = 706-2) 1.3 % GRAN MAT x10^3(ANC) (test code = 2421270806) 4.33 10*3/uL 1.99-6.95 IMM GRAN x10^3 (test code = 1126639718) 0.05 10*3/uL 0.00-0.06 LYMPH x10^3 (test code = 731-0) 1.59 10*3/uL 1.09-3.23 MONO x10^3 (test code = 742-7) 0.59 10*3/uL 0.36-1.02 EOS x10^3 (test code = 711-2) 0.24 10*3/uL 0.06-0.53 BASO x10^3 (test code = 704-7) 0.09 10*3/uL 0.01-0.09 Lab Interpretation (test code = 58772-1) [facility]TR[facility] [id number] 13:59:22* Test Item Value Reference Range Interpretation Comme nts TROPONIN I (test code = 2577309135) 0.005 ng/mL <=0.034 ROSEANN (test code = ROSEANN) [...] of biotin. Lab Interpretation (test code = 97324-3) Normal [facility] [id number] 13:56:39* Test Item Value Reference Range Interpretation Comme nts NT-proBNP (test code = 77751-8) 59 pg/mL <=125 Lab Interpretation (test cod e = 29830-5) [facility] CenterD-YFXGO8080-07-83 13:53:21* Test Item Value Reference Range Interpretation Comments D-DIMER (test code = 9019631340) 0.42 See_Comment H [Automated message] The system which generated this result transmitted reference range: <0.41 ?g/mL (FEU). The reference range was not used to interpret this result as normal/abnormal. ROSEANN (test code = ROSEANN) This test may be used in conjunction with a clinical pretest probability (PTP) assessment model to exclude venous thromboembolism (VTE) in patients suspected of deep venous thrombosis (DVT) and pulmonary embolism (PE) A D-Dimer value less than 0.50 ?g/ml (FEU) has a negative predicative value of 96 to 100% (95% CI)and 97 to 100% (95% CI) as an aid in the diagnosis of deep vein thrombosis (DVT) and pulmonary embolism when there is low or moderate pretest probability of PE or DVT. D-Dimer values are expressed in initial fibrinogen equivalent units (FEU)" The assay results should be used with other information, including the clinical context, in forming a diagnosis. Lab Interpretation (test code = 23024-1) Abnormal [facility]. METABOLIC PANEL (79545)2022-12-25 13:47:42* Test Item Value Reference Range Interpretation Comme nts NA (test code = 7392640748) 138 mmol/L 135-145 K (test code = 3610583106) 4.1 mmol/L 3.5-5.0 CL (test code = 4787771528) 104 mmol/L 98-108 CO2 TOTAL (test code = 3014923153) 31 mmol/L 23-31 AGAP (test code = 2275387114) 3 2-16 BUN (test code = 1898568839) 5 mg/dL 7-23 L GLUCOSE (test code = 0672221475) 96 mg/dL 70-110 CREATININE (test code = 9074856978) 0.79 mg/dL 0.60-1.25 TOTAL BILI (test code = 9001320059) 0.5 mg/dL 0.1-1.1 CALCIUM (test code = 9423369288) 9.0 mg/dL 8.6-10.6 T PROTEIN (test code = 2645443919) 6.4 g/dL 6.3-8.2 ALBUMIN (test code = 2400541011) 3.8 g/dL 3.5-5.0 ALK PHOS (test code = 1846450061) 70 U/L 34-122 ALTv (test code = 1742-6) 14 U/L 5-50 AST(SGOT) (test code = 6670113151) 20 U/L 13-40 eGFR (test code = 6392070712) 99.7 mL/min/1.73m2 ROSEANN (test code = ROSEANN) Association of [...] or abnormalities in imaging tests). Lab Interpretation (test code = 53602-5) [facility] [id number] 04:22:56* Test Item Value Reference Range Interpretation Comme nts TROPONIN I (test code = 2664364705) 0.003 ng/mL <=0.034 ROSEANN (test code = [...] of biotin. Lab Interpretation (test code = 71257-6) [facility] [id number] 04:20:15* Test Item Value Reference Range Interpretation Comme nts NT-proBNP (test code = 26048-1) 33 pg/mL <=125 Lab Interpretation (test cod e = 80199-2) [facility]OL[facility] (05104)2022-11-29 04:11:56* Test Item Value Reference Range Interpretation Comme nts NA (test code = 8423546798) 137 mmol/L 135-145 K (test code = 5041767437) 3.9 mmol/L 3.5-5.0 CL (test code = 8744062211) 100 mmol/L 98-108 CO2 TOTAL (test code = 5570954965) 32 mmol/L 23-31 H AGAP (test code = 3267825505) 5 2-16 BUN (test code = 2568207738) 3 mg/dL 7-23 L GLUCOSE (test code = 3789400035) 107 mg/dL 70-110 CREATININE (test code = 7155214012) 0.82 mg/dL 0.60-1.25 TOTAL BILI (test code = 3462472712) 0.4 mg/dL 0.1-1.1 CALCIUM (test code = 1342385079) 8.8 mg/dL 8.6-10.6 T PROTEIN (test code = 8507405142) 6.5 g/dL 6.3-8.2 ALBUMIN (test code = 9739688544) 3.7 g/dL 3.5-5.0 ALK PHOS (test code = 3610395409) 83 U/L 34-122 ALTv (test code = 1742-6) 15 U/L 5-50 AST(SGOT) (test code = 7139705645) 17 U/L 13-40 eGFR (test code = 9798359906) 95.5 mL/min/1.73m2 ROSEANN (test code = ROSEANN) Association of [...] or abnormalities in imaging tests). Lab Interpretation (test code = 79733-4) Abnormal [facility] WITH [id number] 03:56:30* Test Item Value Reference Range Interpretation Comme nts WBC (test code = 6690-2) 9.85 See_Comment [Automated [employer]] The system which generated this result transmitted reference range: 4.20 - 10.70 10*3/?L. The reference range was not used to interpret this result as normal/abnormal. RBC (test code = 789-8) 4.92 See_Comment [Automated [employer]] The system which generated this result transmitted reference range: 4.26 - 5.52 10*6/?L. The reference range was not used to interpret this result as normal/abnormal. HGB (test code = 718-7) 14.9 g/dL 12.2-16.4 HCT (test code = 4544-3) 44.3 % 38.4-49.3 MCV (test code = 787-2) 90.0 fL 81.7-95.6 MCH (test code = 785-6) 30.3 pg 26.1-32.7 MCHC (test code = 786-4) 33.6 g/dL 31.2-35.0 RDW-SD (test code = 84945-1) 47.6 fL 38.5-51.6 RDW-CV (test code = 788-0) 14.5 % 12.1-15.4 PLT (test code = 777-3) 266 See_Comment [Automated [employer]] The system which generated this result transmitted reference range: 150 - 328 10*3/?L. The reference range was not used to interpret this result as normal/abnormal. MPV (test code = 94906-7) 9.6 fL 9.8-13.0 L NRBC/100 WBC (test code = 8355430550) 0.0 See_Comment [Automated [employer] ssage] The system which generated this result transmitted reference range: 0.0 - 10.0 /100 WBCs. The reference range was not used to interpret this result as normal/abnormal. NRBC x10^3 (test code = 6631049110) See_Comment [Automated [employer]] The system which generated this result transmitted reference range: 10*3/?L. The reference range was not used to interpret this result as normal/abnormal. GRAN MAT (NEUT) % (test code = 770-8) 68.4 % IMM GRAN % (test code = 5068249541) 1.50 % LYMPH % (test code = 736-9) 19.4 % MONO % (test code = 5905-5) 7.3 % EOS % (test code = 713-8) 2.6 % BASO % (test code = 706-2) 0.8 % GRAN MAT x10^3(ANC) (test code = 4707638334) 6.73 10*3/uL 1.99-6.95 IMM GRAN x10^3 (test code = 6615583142) 0.15 10*3/uL 0.00-0.06 H LYMPH x10^3 (test code = 731-0) 1.91 10*3/uL 1.09-3.23 MONO x10^3 (test code = 742-7) 0.72 10*3/uL 0.36-1.02 EOS x10^3 (test code = 711-2) 0.26 10*3/uL 0.06-0.53 BASO x10^3 (test code = 704-7) 0.08 10*3/uL 0.01-0.09 Lab Interpretation (test code = 75918-2) [facility] [id number] 07:38:27* Test Item Value Reference Range Interpretation Comme nts TROPONIN I (test code = 9325005610) 0.003 ng/mL <=0.034 ROSEANN (test code = [...] of biotin. Lab Interpretation (test code = 69271-3) [facility] (59591)2022-11-13 07:26:46* Test Item Value Reference Range Interpretation Comme nts NA (test code = 8527321490) 135 mmol/L 135-145 K (test code = 3361498189) 4.2 mmol/L 3.5-5.0 CL (test code = 3502305660) 100 mmol/L 98-108 CO2 TOTAL (test code = 2607812560) 27 mmol/L 23-31 AGAP (test code = 1630551749) 8 2-16 BUN (test code = 8214862268) 6 mg/dL 7-23 L GLUCOSE (test code = 4851081961) 127 mg/dL 70-110 H CREATININE (test code = 0417774909) 0.79 mg/dL 0.60-1.25 TOTAL BILI (test code = 6153705604) 0.5 mg/dL 0.1-1.1 CALCIUM (test code = 9245885178) 8.5 mg/dL 8.6-10.6 L T PROTEIN (test code = 1309176896) 6.1 g/dL 6.3-8.2 L ALBUMIN (test code = 0314484392) 3.5 g/dL 3.5-5.0 ALK PHOS (test code = 9023466734) 105 U/L 34-122 ALTv (test code = 1742-6) 14 U/L 5-50 AST(SGOT) (test code = 1149130659) 19 U/L 13-40 eGFR (test code = 0728011246) 99.7 mL/min/1.73m2 ROSEANN (test code = ROSEANN) Association of [...] or abnormalities in imaging tests). Lab Interpretation (test code = 03047-6) Abnormal [facility] WITH [id number] 06:58:24* Test Item Value Reference Range Interpretation Comme nts WBC (test code = 6690-2) 8.99 See_Comment [Automated messa ge] The system which generated this result transmitted reference range: 4.20 - 10.70 10*3/?L. The reference range was not used to interpret this result as normal/abnormal. RBC (test code = 789-8) 4.86 See_Comment [Automated messa ge] The system which generated this result transmitted reference range: 4.26 - 5.52 10*6/?L. The reference range was not used to interpret this result as normal/abnormal. HGB (test code = 718-7) 14.8 g/dL 12.2-16.4 HCT (test code = 4544-3) 44.0 % 38.4-49.3 MCV (test code = 787-2) 90.5 fL 81.7-95.6 MCH (test code = 785-6) 30.5 pg 26.1-32.7 MCHC (test code = 786-4) 33.6 g/dL 31.2-35.0 RDW-SD (test code = 71136-6) 48.1 fL 38.5-51.6 RDW-CV (test code = 788-0) 14.5 % 12.1-15.4 PLT (test code = 777-3) 294 See_Comment [Automated messa ge] The system which generated this result transmitted reference range: 150 - 328 10*3/?L. The reference range was not used to interpret this result as normal/abnormal. MPV (test code = 86717-2) 9.7 fL 9.8-13.0 L NRBC/100 WBC (test code = 2126984915) 0.0 See_Comment [Automated [employer] ssage] The system which generated this result transmitted reference range: 0.0 - 10.0 /100 WBCs. The reference range was not used to interpret this result as normal/abnormal. NRBC x10^3 (test code = 2303868438) See_Comment [Automated messa ge] The system which generated this result transmitted reference range: 10*3/?L. The reference range was not used to interpret this result as normal/abnormal. GRAN MAT (NEUT) % (test code = 770-8) 72.3 % IMM GRAN % (test code = 8473180698) 0.90 % LYMPH % (test code = 736-9) 16.6 % MONO % (test code = 5905-5) 6.1 % EOS % (test code = 713-8) 3.1 % BASO % (test code = 706-2) 1.0 % GRAN MAT x10^3(ANC) (test code = 8393210642) 6.50 10*3/uL 1.99-6.95 IMM GRAN x10^3 (test code = 7205743848) 0.08 10*3/uL 0.00-0.06 H LYMPH x10^3 (test code = 731-0) 1.49 10*3/uL 1.09-3.23 MONO x10^3 (test code = 742-7) 0.55 10*3/uL 0.36-1.02 EOS x10^3 (test code = 711-2) 0.28 10*3/uL 0.06-0.53 BASO x10^3 (test code = 704-7) 0.09 10*3/uL 0.01-0.09 Lab Interpretation (test code = 22152-5) [facility] CenterS[facility] [id number]* Test Item Value Reference Range Interpretation Comme nts TROPONIN I (test code = 3095675775) 0.001 ng/mL <=0.034 ROSEANN (test code = [...] of biotin. Lab Interpretation (test code = 77649-1) [id number] 13:05:46* Test Item Value Reference Range Interpretation Comme nts NT-proBNP (test code = 4740352350) 64 pg/mL <=125 ROSEANN (test code = ROSEANN) Biotin has been reported to cause a negative bias, interpret results relative to patient's use of biotin. Lab Interpretation (test code = 46467-4) [facility] (63141)2022-10-15 12:58:28* Test Item Value Reference Range Interpretation Comme nts NA (test code = 7716272317) 140 mmol/L 135-145 K (test code = 2306359124) 4.4 mmol/L 3.5-5.0 CL (test code = 0301243836) 103 mmol/L 98-108 CO2 TOTAL (test code = 4620593140) 29 mmol/L 23-31 AGAP (test code = 0373519325) 8 2-16 BUN (test code = 1936146029) 6 mg/dL 7-23 L GLUCOSE (test code = 2856179455) 114 mg/dL 70-110 H CREATININE (test code = 5473784400) 0.85 mg/dL 0.60-1.25 TOTAL BILI (test code = 6922235891) 0.6 mg/dL 0.1-1.1 CALCIUM (test code = 9878387726) 9.2 mg/dL 8.6-10.6 T PROTEIN (test code = 4469408221) 6.9 g/dL 6.3-8.2 ALBUMIN (test code = 9637849297) 4.1 g/dL 3.5-5.0 ALK PHOS (test code = 3365827704) 101 U/L 34-122 ALTv (test code = 1742-6) 13 U/L 5-50 AST(SGOT) (test code = 1783297737) 18 U/L 13-40 eGFR (test code = 9782479543) 91.6 mL/min/1.73m2 ROSEANN (test code = ROSEANN) Association of [...] or abnormalities in imaging tests). Lab Interpretation (test code = 78830-5) Abnormal [facility] WITH [id number] 12:41:49* Test Item Value Reference Range Interpretation Comme nts WBC (test code = 6690-2) 6.93 See_Comment [Automated [employer]] The system which generated this result transmitted reference range: 4.20 - 10.70 10*3/?L. The reference range was not used to interpret this result as normal/abnormal. RBC (test code = 789-8) 5.28 See_Comment [Automated [employer]] The system which generated this result transmitted reference range: 4.26 - 5.52 10*6/?L. The reference range was not used to interpret this result as normal/abnormal. HGB (test code = 718-7) 16.0 g/dL 12.2-16.4 HCT (test code = 4544-3) 48.2 % 38.4-49.3 MCV (test code = 787-2) 91.3 fL 81.7-95.6 MCH (test code = 785-6) 30.3 pg 26.1-32.7 MCHC (test code = 786-4) 33.2 g/dL 31.2-35.0 RDW-SD (test code = 86054-3) 47.8 fL 38.5-51.6 RDW-CV (test code = 788-0) 14.4 % 12.1-15.4 PLT (test code = 777-3) 310 See_Comment [Automated messa ge] The system which generated this result transmitted reference range: 150 - 328 10*3/?L. The reference range was not used to interpret this result as normal/abnormal. MPV (test code = 74556-8) 10.0 fL 9.8-13.0 NRBC/100 WBC (test code = 1565330860) 0.0 See_Comment [Automated me ssage] The system which generated this result transmitted reference range: 0.0 - 10.0 /100 WBCs. The reference range was not used to interpret this result as normal/abnormal. NRBC x10^3 (test code = 3994164015) See_Comment [Automated me ssage] The system which generated this result transmitted reference range: 10*3/?L. The reference range was not used to interpret this result as normal/abnormal. GRAN MAT (NEUT) % (test code = 770-8) 65.8 % IMM GRAN % (test code = 3444353576) 0.60 % LYMPH % (test code = 736-9) 19.0 % MONO % (test code = 5905-5) 8.4 % EOS % (test code = 713-8) 5.2 % BASO % (test code = 706-2) 1.0 % GRAN MAT x10^3(ANC) (test code = 8931020680) 4.56 10*3/uL 1.99-6.95 IMM GRAN x10^3 (test code = 6912000707) 0.04 10*3/uL 0.00-0.06 LYMPH x10^3 (test code = 731-0) 1.32 10*3/uL 1.09-3.23 MONO x10^3 (test code = 742-7) 0.58 10*3/uL 0.36-1.02 EOS x10^3 (test code = 711-2) 0.36 10*3/uL 0.06-0.53 BARTOLOME x10^3 (test code = 704-7) 0.07 10*3/uL 0.01-0.09 [facility]:06* Test Item Value Reference Range Interpretation Comme nts Procalcitonin (test code = 7589538677) 0.10 ng/mL <=0.07 H ROSEANN (test code = ROSEANN) INTERPRETATION OF [...] lung abscess/empyema. For further information please refer to:[email or web address] Lab Interpretation (test code = 89859-0) Abnormal [facility] with [id number] 10:31:18* Test Item Value Reference Range Interpretation Comme nts WBC (test code = 6690-2) 16.07 See_Comment H [Automated message] The system which generated this result transmitted reference range: 4.20 - 10.70 10*3/?L. The reference range was not used to interpret this result as normal/abnormal. RBC (test code = 789-8) 4.80 See_Comment [Automated message] The system which generated this result transmitted reference range: 4.26 - 5.52 10*6/?L. The reference range was not used to interpret this result as normal/abnormal. HGB (test code = 718-7) 14.3 g/dL 12.2-16.4 HCT (test code = 4544-3) 43.2 % 38.4-49.3 MCV (test code = 787-2) 90.0 fL 81.7-95.6 MCH (test code = 785-6) 29.8 pg 26.1-32.7 MCHC (test code = 786-4) 33.1 g/dL 31.2-35.0 RDW-SD (test code = 01116-4) 43.8 fL 38.5-51.6 RDW-CV (test code = 788-0) 13.4 % 12.1-15.4 PLT (test code = 777-3) 276 See_Comment [Automated message] The system which generated this result transmitted reference range: 150 - 328 10*3/?L. The reference range was not used to interpret this result as normal/abnormal. MPV (test code = 20629-6) 10.4 fL 9.8-13.0 NRBC/100 WBC (test code = 2461539591) 0.0 See_Comment [Automated message] The system which generated this result transmitted reference range: 0.0 - 10.0 /100 WBCs. The reference range was not used to interpret this result as normal/abnormal. NRBC x10^3 (test code = 6231571448) See_Comment [Automated message] The system which generated this result transmitted reference range: 10*3/?L. The reference range was not used to interpret this result as normal/abnormal. GRAN MAT (NEUT) % (test code = 770-8) 91.0 % IMM GRAN % (test code = 5564876859) 0.70 % LYMPH % (test code = 736-9) 3.9 % MONO % (test code = 5905-5) 4.2 % EOS % (test code = 713-8) 0.0 % BASO % (test code = 706-2) 0.2 % GRAN MAT x10^3(ANC) (test code = 9837878138) 14.64 10*3/uL 1.99-6.95 H IMM GRAN x10^3 (test code = 3141861210) 0.11 10*3/uL 0.00-0.06 H LYMPH x10^3 (test code = 731-0) 0.62 10*3/uL 1.09-3.23 L MONO x10^3 (test code = 742-7) 0.67 10*3/uL 0.36-1.02 EOS x10^3 (test code = 711-2) 0.06-0.53 L BASO x10^3 (test code = 704-7) 0.03 10*3/uL 0.01-0.09 Lab Interpretation (test code = 86749-1) [facility] (NA, K, CL, CO2, GLUCOSE, BUN, CREATININE, CA)2022-09-18 09:42:12* Test Item Value Reference Range Interpretation Comme nts NA (test code = 3366093038) 138 mmol/L 135-145 K (test code = 4217674955) 4.3 mmol/L 3.5-5.0 CL (test code = 9228542333) 102 mmol/L 98-108 CO2 TOTAL (test code = 0438690921) 29 mmol/L 23-31 AGAP (test code = 3554449030) 7 2-16 BUN (test code = 6981693634) 17 mg/dL 7-23 GLUCOSE (test code = 0371256014) 129 mg/dL 70-110 H CREATININE (test code = 3846449231) 0.68 mg/dL 0.60-1.25 CALCIUM (test code = 9869238983) 9.0 mg/dL 8.6-10.6 eGFR (test code = 5974644476) 118.5 mL/min/1.73m2 ROSEANN (test code = ROSEANN) Association of [...] or abnormalities in imaging tests). Lab Interpretation (test code = 80489-8) Abnormal [facility]. METABOLIC PANEL (97255)2022-09-17 07:05:43* Test Item Value Reference Range Interpretation Comme nts NA (test code = 7223727567) 134 mmol/L 135-145 L K (test code = 7721538758) 4.4 mmol/L 3.5-5.0 CL (test code = 5537690096) 98 mmol/L 98-108 CO2 TOTAL (test code = 5447312059) 26 mmol/L 23-31 AGAP (test code = 1456998416) 10 2-16 BUN (test code = 2937074918) 7 mg/dL 7-23 GLUCOSE (test code = 3056858501) 135 mg/dL 70-110 H CREATININE (test code = 2524737483) 0.81 mg/dL 0.60-1.25 TOTAL BILI (test code = 3287170663) 1.1 mg/dL 0.1-1.1 CALCIUM (test code = 4801363322) 8.6 mg/dL 8.6-10.6 T PROTEIN (test code = 7437189294) 6.5 g/dL 6.3-8.2 ALBUMIN (test code = 5261060432) 3.9 g/dL 3.5-5.0 ALK PHOS (test code = 4579877815) 101 U/L 34-122 ALTv (test code = 1742-6) 12 U/L 5-50 AST(SGOT) (test code = 4719795470) 16 U/L 13-40 eGFR (test code = 0378783614) 96.9 mL/min/1.73m2 ROSEANN (test code = ROSEANN) Association of [...] or abnormalities in imaging tests). Lab Interpretation (test code = 58887-7) [facility] [id number] 06:41:43* Test Item Value Reference Range Interpretation Comme nts TROPONIN I (test code = 3096376424) 0.016 ng/mL <=0.034 ROSEANN (test code = ROSEANN) [...] of biotin. Lab Interpretation (test code = 77671-1) Normal [facility] [id number] 06:38:22* Test Item Value Reference Range Interpretation Comme nts NT-proBNP (test code = 9302756236) 85 pg/mL <=125 ROSEANN (test code = ROSEANN) Biotin has been reported to cause a negative bias, interpret results relative to patient's use of biotin. Lab Interpretation (test code = 51268-0) Normal [facility] WITH [id number] 06:22:22* Test Item Value Reference Range Interpretation Comme nts WBC (test code = 6690-2) 14.22 See_Comment H [Automated message] The system which generated this result transmitted reference range: 4.20 - 10.70 10*3/?L. The reference range was not used to interpret this result as normal/abnormal. RBC (test code = 789-8) 5.34 See_Comment [Automated message] The system which generated this result transmitted reference range: 4.26 - 5.52 10*6/?L. The reference range was not used to interpret this result as normal/abnormal. HGB (test code = 718-7) 16.0 g/dL 12.2-16.4 HCT (test code = 4544-3) 48.0 % 38.4-49.3 MCV (test code = 787-2) 89.9 fL 81.7-95.6 MCH (test code = 785-6) 30.0 pg 26.1-32.7 MCHC (test code = 786-4) 33.3 g/dL 31.2-35.0 RDW-SD (test code = 57842-1) 44.7 fL 38.5-51.6 RDW-CV (test code = 788-0) 13.6 % 12.1-15.4 PLT (test code = 777-3) 274 See_Comment [Automated message] The system which generated this result transmitted reference range: 150 - 328 10*3/?L. The reference range was not used to interpret this result as normal/abnormal. MPV (test code = 06879-6) 10.2 fL 9.8-13.0 NRBC/100 WBC (test code = 0453411187) 0.0 See_Comment [Automated message] The system which generated this result transmitted reference range: 0.0 - 10.0 /100 WBCs. The reference range was not used to interpret this result as normal/abnormal. NRBC x10^3 (test code = 1679637604) See_Comment [Automated message] The system which generated this result transmitted reference range: 10*3/?L. The reference range was not used to interpret this result as normal/abnormal. GRAN MAT (NEUT) % (test code = 770-8) 84.8 % IMM GRAN % (test code = 9639955239) 0.80 % LYMPH % (test code = 736-9) 7.0 % MONO % (test code = 5905-5) 6.3 % EOS % (test code = 713-8) 0.6 % BASO % (test code = 706-2) 0.5 % GRAN MAT x10^3(ANC) (test code = 8282979791) 12.06 10*3/uL 1.99-6.95 H IMM GRAN x10^3 (test code = 8577441228) 0.11 10*3/uL 0.00-0.06 H LYMPH x10^3 (test code = 731-0) 0.99 10*3/uL 1.09-3.23 L MONO x10^3 (test code = 742-7) 0.90 10*3/uL 0.36-1.02 EOS x10^3 (test code = 711-2) 0.09 10*3/uL 0.06-0.53 BASO x10^3 (test code = 704-7) 0.07 10*3/uL 0.01-0.09 Lab Interpretation (test code = 52465-4) Abnormal [facility] [id number] 23:40:13* Test Item Value Reference Range Interpretation Comme nts TROPONIN I (test code = 2524936104) 0.003 ng/mL <=0.034 ROSEANN (test code = [...] of biotin. Lab Interpretation (test code = 63986-8) Normal [facility] THRM[facility] [id number] 23:35:31* Test Item Value Reference Range Interpretation Comme [facility] APTT Patient (test code = 3173-2) 41 See_Comment H [Automated message] The system which generated this result transmitted reference range: 23 - 38 Seconds. The reference range was not used to interpret this result as normal/abnormal. ROSEANN (test code = ROSEANN) The [facility] patient population mean normal value for aPTT is 30 seconds. Lab Interpretation (test code = 58055-8) Abnormal [facility] Center[facility]th[facility] Time / [id number] 23:33:11* Test Item Value Reference Range Interpretation Comme [facility] PROTIME PATIENT (test code = 5964-2) 12.3 See_Comment [Automated messa ge] The system which generated this result transmitted reference range: 12.0 - 14.7 Seconds. The reference range was not used to interpret this result as normal/abnormal. INR (test code = 6301-6) 1.0 Normal INR <1.1; Warfarin Therapeutic range 2.0 to 3.0 or 2.5 to 3.5, depending upon the indications. Lab Interpretation (test code = 69191-5) [facility] MET[facility]OLIC PAN[facility] (49729)2022-08-20 23:30:30* Test Item Value Reference Range Interpretation Comme [facility] NA (test code = 0808277347) 135 mmol/L 135-145 K (test code = 0608089197) 4.3 mmol/L 3.5-5.0 CL (test code = 6861112830) 99 mmol/L 98-108 CO2 TOTAL (test code = 1859160155) 30 mmol/L 23-31 AGAP (test code = 4765174373) 6 2-16 BUN (test code = 6900338837) 5 mg/dL 7-23 L GLUCOSE (test code = 5304319733) 124 mg/dL 70-110 H CREATININE (test code = 1166883357) 0.86 mg/dL 0.60-1.25 TOTAL BILI (test code = 2900140531) 0.6 mg/dL 0.1-1.1 CALCIUM (test code = 6745170275) 9.1 mg/dL 8.6-10.6 T PROTEIN (test code = 2548008416) 7.0 g/dL 6.3-8.2 ALBUMIN (test code = 3531034046) 4.3 g/dL 3.5-5.0 ALK PHOS (test code = 6166652178) 100 U/L 34-122 ALTv (test code = 1742-6) 13 U/L 5-50 AST(SGOT) (test code = 9406372780) 19 U/L 13-40 eGFR (test code = 1521888367) 90.4 mL/min/1.73m2 ROSEANN (test code = ROSEANN) Association of [...] or abnormalities in imaging tests). Lab Interpretation (test code = 18112-3) [facility] 23:29:30* Test Item Value Reference Range Interpretation Comme nts LIPASE (test code = 6229873527) 53 U/L 0-220 Lab Interpretation (test cod e = 17225-4) Normal [facility] WITH [id number] 23:14:52* Test Item Value Reference Range Interpretation Comme nts WBC (test code = 6690-2) 9.92 See_Comment [Automated messa ge] The system which generated this result transmitted reference range: 4.20 - 10.70 10*3/?L. The reference range was not used to interpret this result as normal/abnormal. RBC (test code = 789-8) 5.45 See_Comment [Automated messa ge] The system which generated this result transmitted reference range: 4.26 - 5.52 10*6/?L. The reference range was not used to interpret this result as normal/abnormal. HGB (test code = 718-7) 16.3 g/dL 12.2-16.4 HCT (test code = 4544-3) 48.6 % 38.4-49.3 MCV (test code = 787-2) 89.2 fL 81.7-95.6 MCH (test code = 785-6) 29.9 pg 26.1-32.7 MCHC (test code = 786-4) 33.5 g/dL 31.2-35.0 RDW-SD (test code = 28878-0) 43.0 fL 38.5-51.6 RDW-CV (test code = 788-0) 13.2 % 12.1-15.4 PLT (test code = 777-3) 281 See_Comment [Automated messa ge] The system which generated this result transmitted reference range: 150 - 328 10*3/?L. The reference range was not used to interpret this result as normal/abnormal. MPV (test code = 05231-0) 9.5 fL 9.8-13.0 L NRBC/100 WBC (test code = 0557246442) 0.0 See_Comment [Automated [employer] ssage] The system which generated this result transmitted reference range: 0.0 - 10.0 /100 WBCs. The reference range was not used to interpret this result as normal/abnormal. NRBC x10^3 (test code = 2524450992) See_Comment [Automated messa ge] The system which generated this result transmitted reference range: 10*3/?L. The reference range was not used to interpret this result as normal/abnormal. GRAN MAT (NEUT) % (test code = 770-8) 80.3 % IMM GRAN % (test code = 8510195422) 0.60 % LYMPH % (test code = 736-9) 9.3 % MONO % (test code = 5905-5) 5.0 % EOS % (test code = 713-8) 3.9 % BASO % (test code = 706-2) 0.9 % GRAN MAT x10^3(ANC) (test code = 3652365826) 7.96 10*3/uL 1.99-6.95 H IMM GRAN x10^3 (test code = 9998645090) 0.06 10*3/uL 0.00-0.06 LYMPH x10^3 (test code = 731-0) 0.92 10*3/uL 1.09-3.23 L MONO x10^3 (test code = 742-7) 0.50 10*3/uL 0.36-1.02 EOS x10^3 (test code = 711-2) 0.39 10*3/uL 0.06-0.53 BASO x10^3 (test code = 704-7) 0.09 10*3/uL 0.01-0.09 Lab Interpretation (test code = 66985-3) Abnormal [facility] METABOLIC PANEL (NA, K, CL, CO2, GLUCOSE, BUN, CREATININE, CA)2022-05-29 09:45:41* Test Item Value Reference Range Interpretation Comme nts NA (test code = 6772979490) 135 mmol/L 135-145 K (test code = 9021111497) 4.0 mmol/L 3.5-5.0 CL (test code = 6108919915) 98 mmol/L 98-108 CO2 TOTAL (test code = 5236234034) 29 mmol/L 23-31 AGAP (test code = 3665449864) 2-16 BUN (test code = 6249796660) 8 mg/dL 7-23 GLUCOSE (test code = 0954241918) 95 mg/dL 70-110 CREATININE (test code = 5471497626) 0.91 mg/dL 0.60-1.25 CALCIUM (test code = 0788310596) 9.0 mg/dL 8.6-10.6 eGFR (test code = 4808508707) mL/min/1.73m2 ROSEANN (test code = ROSEANN) Association of [...] or urine or abnormalities in imaging tests). [facility] WITH [id number] 09:27:03* Test Item Value Reference Range Interpretation Comme nts WBC (test code = 6690-2) See_Comment [Automated [employer]] The system which generated this result transmitted reference range: 4.20 - 10.70 10*3/?L. The reference range was not used to interpret this result as normal/abnormal. RBC (test code = 789-8) See_Comment [Automated [employer]] The system which generated this result transmitted reference range: 4.26 - 5.52 10*6/?L. The reference range was not used to interpret this result as normal/abnormal. HGB (test code = 718-7) 14.9 g/dL 12.2-16.4 HCT (test code = 4544-3) 44.6 % 38.4-49.3 MCV (test code = 787-2) 90.5 fL 81.7-95.6 MCH (test code = 785-6) 30.2 pg 26.1-32.7 MCHC (test code = 786-4) 33.4 g/dL 31.2-35.0 RDW-SD (test code = 55345-5) 46.1 fL 38.5-51.6 RDW-CV (test code = 788-0) 13.8 % 12.1-15.4 PLT (test code = 777-3) See_Comment [Automated messa ge] The system which generated this result transmitted reference range: 150 - 328 10*3/?L. The reference range was not used to interpret this result as normal/abnormal. MPV (test code = 33015-6) 9.1 fL 9.8-13.0 L NRBC/100 WBC (test code = 3413514415) See_Comment [Automated [employer] ssage] The system which generated this result transmitted reference range: 0.0 - 10.0 /100 WBCs. The reference range was not used to interpret this result as normal/abnormal. NRBC x10^3 (test code = 5785823552) See_Comment [Automated messa ge] The system which generated this result transmitted reference range: 10*3/?L. The reference range was not used to interpret this result as normal/abnormal. GRAN MAT (NEUT) % (test code = 770-8) 75.8 % IMM GRAN % (test code = 5972578979) 0.50 % LYMPH % (test code = 736-9) 14.1 % MONO % (test code = 5905-5) 6.4 % EOS % (test code = 713-8) 2.3 % BASO % (test code = 706-2) 0.9 % GRAN MAT x10^3(ANC) (test code = 3456429815) 4.94 10*3/uL 1.99-6.95 IMM GRAN x10^3 (test code = 4148565620) 0.03 10*3/uL 0.00-0.06 LYMPH x10^3 (test code = 731-0) 0.92 10*3/uL 1.09-3.23 L MONO x10^3 (test code = 742-7) 0.42 10*3/uL 0.36-1.02 EOS x10^3 (test code = 711-2) 0.15 10*3/uL 0.06-0.53 BASO x10^3 (test code = 704-7) 0.06 10*3/uL 0.01-0.09 Lab Interpretation (test code = 37072-6) Abnormal [facility] Consult Notes Date/Time Note Provider Source 2024-03-04 15:12:19 Associated Order(s): CONSULT PULMONARY MEDICINE [facility] Pulmonary/Critical Care Medicine Interventional Pulmonology Chief Complaint: Evaluation for COPD exacerbation Subjective: Darwin Del Valle is a 64 year old male admitted for COPD exacerbation. Patient also improved. Patient has had gradual worsening of his COPD overall. Patient is on DuoNebs at home. Patient had thrush with a lot of the dry powder as well as a steroid inhalers. He is not on any long-acting regimen. He was discharged to inpatient pulmonary rehab about a year ago. He did feel it helped to a limited extent but he does not really feel it helped him again. Past Histories: I have reviewed and updated the following as appropriate: past medical history, past surgical history, family history, social history. Objective: BP 119/66 | Pulse 69 | Temp 36.9 ?C (98.4 ?F) | Resp 18 | Ht 6' (1.829 m) | Wt 141 lb (64 kg) | SpO2 99% | BMI 19.12 kg/m? Physical Exam Constitutional: Appearance: Normal appearance. Cardiovascular: Rate and Rhythm: Normal rate and regular rhythm. Pulmonary: Effort: Pulmonary effort is normal. No respiratory distress. Neurological: General: No focal deficit present. Mental Status: He is alert and oriented to person, place, and time. Labs/Studies: CT thorax shows regions of tree-in-bud nodularity with bronchial wall thickening and mucous plugging, resolution of previously described left lower lobe nodules, stable right upper lobe nodule 5 mm in size. Moderate emphysema Assessment: Darwin Del Valle is a 64 year old male with admission for COPD exacerbation. Plan: Would discharge patient on long-acting nebulizer such as Brovana 15 mcg twice daily. Depending on his insurance this may be more affordable if it is sent to a DME provider. His current DME provider for his oxygen is [facility]. Patient would benefit from further evaluation optimization of his COPD regimen, would recommend patient follow-up with pulmonary as an outpatient. Patient is likely good candidate for outpatient pulmonary rehab if he is agreeable. We can arrange for this at his follow-up clinic visit NCT PHYSICS INSTRUCTOR IM-PULMONARY DISEASE STAFF [facility] 2023-05-17 16:30:00 Associated Order(s): CONSULT WOUND, OSTOMY, OR CONTINENCE CARE TEAM; CONSULT WOUND, OSTOMY, OR CONTINENCE CARE TEAM Images from the original note were not included. [facility] Nurse Note NURSING WOUND CARE CONSULT EVALUATION Consulted for evaluation of: Darwin Del Valle is a 63 year old male with right foot wound. PATIENT ASSESSMENT: Pertinent PMH: Past Medical History: Diagnosis Date COPD (chronic obstructive pulmonary disease) Tobacco consumption Current Nutritional Status: Orders Placed This Encounter Procedures Regular Diet; Diet Texture: Regular Mobility Status: Ambulatory Most Recent Jackson Scale Score: 21 WOUND ASSESSMENT: Chronic slow-healing full thickness ulceration located on the right lateral heel. Patient with history of lower limb ischemia. Wound is likely due to arterial insufficiency. The wound is round with moist, fibrous, yellow slough covering the wound bed. A small amount of serous exudate is noted. Surrounding skin is fragile, dry and peeling. RECOMMENDATIONS: Apply Santyl ointment 2 mm thick (thickness of a nickel) to the right foot wound bed from edge to edge, followed by saline-moistened gauze, and cover with foam border dressing (mepilex). Change dressing daily. Recommendation for additional consults: Please consider referral to podiatry and/or vascular service for outpatient follow-up. PLAN: Nursing to Implement Impaired Skin Integrity Care Plan and appropriate interventions Optimize nutrition and glycemic control (If indicated) to support wound healing Please contact [facility] nurse if wound is found to be worsening or not progressing towards healing within one week. Noelle Bay, MSN, RN, CWOCN, CCRN Wound, Ostomy & Continence Nurse [facility] P [phone] E [email or web address] NCT PHYSICS INSTRUCTOR Noelle Bay RN [facility] 2023-05-11 16:18:52 Associated Order(s): CONSULT GENERAL SURGERY GENERAL SURGERY CONSULTATION NOTE Reason for Consultation / Chief Complaint: Abdominal pain; concern for gallstone pancreatitis Consult Requested By: Richard History of Present Illness: Darwin Del Valle is a 63 year old male with PMHx of PAD s/p R [employer] last month, COPD on 2L NC this past month since his surgery, presents to [facility] ER for SOB x 1 month and abdominal pain. He was seen in the ER yesterday but signed out AMA. He returns with a chief complaint of abdominal pain and SOB. He has been on a steroid taper over the last few days. He reports subjective fever, chills. He has been diagnosed with PNA and started on levaquina at home. Workup in the ER with finding of elevated lipase, which lead to a diagnosis of pancreatitis. He does have abdominal pain. Denies history of alcohol use. He is suppose to be on Xarelto, but because of financial reasons he couldn't take it and was changed over to warfarin. Past Medical History: Past Medical History: Diagnosis Date COPD (chronic obstructive pulmonary disease) Tobacco consumption Past Surgical History: Past Surgical History: Procedure Laterality Date ANGIOGRAM VIA LOWER EXTREMITY ACCESS (SHX) Right 07/22/2021 Surgeon: Fuentes Cabrera MD; Location: [facility] OR LOCATION FEMORAL ENDARTERECTOMY Right 04/03/2023 Surgeon: Gilbert Rodríguez MD; [facility] HERNIA REPAIR TOE AMPUTATION Right 07/26/2021 Surgeon: Onel Segundo DPM; Location: [facility] OR LOCATION TOE AMPUTATION Right 5th digit Rt foot Allergies: Allergies Allergen Reactions Codeine Nausea and/or Vomiting and Unknown - See comments Medications: Patient's Medications START taking these medications No medications on file CONTINUE taking these medications which have NOT CHANGED ALBUTEROL-IPRATROPIUM (COMBIVENT RESPIMAT) 20-100 MCG/ACTUATION INHALER Inhale 1 Puff 4 (four) times daily for 30 days. APIXABAN 5 MG TABLET Take 1 tablet by mouth in the morning and 1 tablet in the evening. Indications: history of deep vein thrombosis BENZONATATE 100 MG CAPSULE Take 2 capsules by mouth every 8 (eight) hours as needed for Cough for up to 30 days. BUDESONIDE-FORMOTEROL 160-4.5 MCG/ACTUATION INHALER Inhale 2 Puffs in the morning and 2 Puffs in the evening. COLLAGENASE 250 UNIT/GRAM OINTMENT Apply to affected area(s) daily for 30 days. NICOTINE 14 MG/24 HR PATCH Apply 1 Patch to area(s) every 24 (twenty-four) hours. PREDNISONE 20 MG TABLET Take 3 tablets by mouth every morning for 5 days. TAMSULOSIN 0.4 MG 24 HR CAPSULE Take 1 capsule by mouth in the morning for 30 days. WARFARIN 2.5 MG TABLET Take 1 tablet by mouth every evening for 30 days. START taking Modified Medications as Prescribed No medications on file STOP taking these medications No medications on file No current facility-administered medications for this encounter. Current Outpatient Medications Medication Sig Dispense Refill predniSONE 20 mg tablet Take 3 tablets by mouth every morning for 5 days. 15 tablet 0 apixaban 5 mg tablet Take 1 tablet by mouth in the morning and 1 tablet in the evening. Indications: history of deep vein thrombosis 180 tablet 0 albuterol-ipratropium (COMBIVENT RESPIMAT) 20-100 mcg/actuation inhaler Inhale 1 Puff 4 (four) times daily for 30 days. 4 g 0 benzonatate 100 mg capsule Take 2 capsules by mouth every 8 (eight) hours as needed for Cough for up to 30 days. 30 capsule 0 budesonide-formoteroL 160-4.5 mcg/actuation inhaler Inhale 2 Puffs in the morning and 2 Puffs in the evening. 10.2 g 0 collagenase 250 unit/gram ointment Apply to affected area(s) daily for 30 days. 30 g 0 tamsulosin 0.4 mg 24 hr capsule Take 1 capsule by mouth in the morning for 30 days. 30 capsule 0 warfarin 2.5 mg tablet Take 1 tablet by mouth every evening for 30 days. 30 tablet 0 nicotine 14 mg/24 hr patch Apply 1 Patch to area(s) every 24 (twenty-four) hours. 30 Patch 2 Family History: Family History Problem Relation Age of Onset Cancer Mother Heart Mother Cancer Father Social History: Social History Socioeconomic History Marital status: Number of children: 3 Highest education level: 3rd grade Occupational History Occupation: diabled Tobacco Use Smoking status: Former Packs/day: 0.50 Years: 50.00 Additional pack years: 0.00 Total pack years: 25.00 Types: Cigarettes Quit date: 06/17/2019 Years since quittin.9 Passive exposure: Current Smokeless tobacco: Never Vaping Use Vaping Use: Never used Substance and Sexual Activity Alcohol use: Yes Comment: social Drug use: Never Social History Narrative Lives at home alone Social Determinants of Health Financial Resource Strain: Low Risk (04/19/2023) Overall Financial Resource Strain (CARDIA) Difficulty of Paying Living Expenses: Not hard at all Food Insecurity: No Food Insecurity (04/19/2023) Hunger Vital Sign Worried About Running Out of Food in the Last Year: Never true Ran Out of Food in the Last Year: Never true Transportation Needs: No Transportation Needs (04/19/2023) PRAPARE - Transportation Lack of Transportation (Medical): No Lack of Transportation (Non-Medical): No Physical Activity: Inactive (04/19/2023) Exercise Vital Sign Days of Exercise per Week: 0 days Minutes of Exercise per Session: 0 min Social Connections: Unknown (04/19/2023) Social Connection and Isolation Panel [NHANES] Frequency of Communication with Friends and Family: More than three times a week Marital Status: Housing Stability: Low Risk (04/19/2023) Housing Stability Vital Sign Unable to Pay for Housing in the Last Year: No Number of Places Lived in the Last Year: 1 Unstable Housing in the Last Year: No Review of Systems: Constitutional: +Fever ENT: Negative Resp: +Cough, +SOB CV: Negative GI: +Abdominal pain : Negative Neuro: Negative Musc: Negative Skin: Negative Psych: Negative Endocrine: Negative Heme/Lymph: Negative Allergy/immunology: Negative Unless as listed above, all other systems were reviewed and negative Physical Exam: BP 99/66 | Pulse 65 | Temp 36.7 ?C (98 ?F) (Oral) | Resp 22 | Ht 1.829 m (6') | Wt 62.6 kg (138 lb) | SpO2 96% | BMI 18.72 kg/m? No intake or output data in the 24 hours ending 05/11/23 1619 Constitutional: Awake, alert, appears appropriate age, chronically ill Head: Normocephalic, atraumatic Respiratory: 2L NC, coughing, appears short of breat GI: Soft abdomen, mild epigastric tenderness Extremities: No clubbing, cyanosis, or edema R foot wound at the heal (Chronic) Psychiatric: Orientated to person, place and time Skin: No cyanosis, no lesions Labs: I independently reviewed the patient's labs. CBC WBC (10*3/?L) Date Value 05/11/2023 20.62 (H) RBC (10*6/?L) Date Value 05/11/2023 5.17 PLT (10*3/?L) Date Value 05/11/2023 357 (H) HGB (g/dL) Date Value 05/11/2023 16.1 HCT (%) Date Value 05/11/2023 49.5 (H) BMP NA (mmol/L) Date Value 05/11/2023 139 K (mmol/L) Date Value 05/11/2023 4.1 CALCIUM (mg/dL) Date Value 05/11/2023 9.5 CL (mmol/L) Date Value 05/11/2023 98 BUN (mg/dL) Date Value 05/11/2023 27 (H) CREATININE (mg/dL) Date Value 05/11/2023 0.60 GLUCOSE (mg/dL) Date Value 05/11/2023 108 CO2 TOTAL (mmol/L) Date Value 05/11/2023 38 (H) Hepatic Function Panel ALBUMIN (g/dL) Date Value 05/11/2023 4.2 T PROTEIN (g/dL) Date Value 05/11/2023 7.5 TOTAL BILI (mg/dL) Date Value 05/11/2023 1.8 (H) BILI UNCON (mg/dL) Date Value 04/20/2023 0.0 (L) BILI CONJ (mg/dL) Date Value 04/20/2023 0.0 ALT(SGPT) (U/L) Date Value 10/03/2018 34 ALTv (U/L) Date Value 05/11/2023 524 (H) AST(SGOT) (U/L) Date Value 05/11/2023 624 (H) ALK PHOS (U/L) Date Value 05/11/2023 171 (H) Microbiology: There are no current results on file for these tests and/or test for 1 year.QUANTATIVE CULTURE There are no current results on file for these tests and/or test for 1 year.wound culture Radiology: I independently reviewed the patient's CT. US GALL BLADDER Result Date: 05/11/2023 Hydropic gallbladder with multiple stones. No evidence of acute cholecystitis. No biliary ductal dilatation. Preliminary Report Dictated by Resident: Claudia Rosado I, Ewa Coello MD., have reviewed this study and agree with the above report. CT ABDOMEN PELVIS W CONTRAST Result Date: 05/11/2023 No acute inflammatory process in the abdomen and pelvis. Old granulomatous disease. Cholelithiasis. Ordering physician: JUDIE GARCIA RL [id number] CHEST 1 VW Result Date: 05/10/2023 Impression: bronchiolitis without consolidating opacity. RL: 1825 End of Report CHEST PULMONARY ANGIOGRAM Result Date: 05/01/2023 1. No evidence of pulmonary embolism or aortic dissection. 2. Moderate to severe emphysema. 3. Diffuse bronchial wall thickening throughout lungs bilaterally and several scattered peribronchial lung nodules suspicious for infectious/inflammatory process. Largest nodule is 1.0 cm in the left lower lobe. Elective follow-up CT recommended in 3-6 months. RL: 6600 AFC: [id number] End of report. CHEST 1 VW Result Date: 05/01/2023 No radiographic evidence of acute cardiopulmonary process. RL: 135 CHEST 1 VW Result Date: 04/19/2023 There are mildly increased interstitial pulmonary opacities bilaterally, possibly representing interstitial edema versus bilateral atypical interstitial pneumonia. There are no effusions. RL: 5252 CHEST 2 VW Result Date: 04/13/2023 Impression: No acute cardiopulmonary finding in a patient with COPD. RL: 1825 End of Report CHEST 1 VW Result Date: 04/12/2023 Impression: No acute cardiopulmonary finding. RL: 1825 End of Report Hospital Encounter on 05/11/23 US GALL BLADDER Narrative EXAM: US GALL BLADDER HISTORY: 63 years-old Male with ruq pain . TECHNIQUE: Gallbladder ultrasound was performed. Main portal vein was evaluated with color Doppler imaging. Edge Molder images were obtained for the record. COMPARISON: Same day CT abdomen pelvis with contrast. FINDINGS: GALLBLADDER: Hydropic gallbladder. Multiple small gallstones are seen. Normal gallbladder wall thickness, 3 mm. Bradshaw's sign could not be accurately asssessed due to premedication for pain.. BILE DUCTS: No intra- or extrahepatic biliary dilatation.. Common Duct diameter: 5 mm. PANCREAS: Limited visualization due to shadowing from bowel gas.. OTHER: None. Impression Hydropic gallbladder with multiple stones. No evidence of acute cholecystitis. No biliary ductal dilatation. Preliminary Report Dictated by Resident: Claudia Rosado I, Ewa Coello MD., have reviewed this study and agree with the above report. CT ABDOMEN PELVIS W CONTRAST Narrative CT ABDOMEN PELVIS W CONTRAST HISTORY: Abdominal pain, acute, nonlocalized EPIGASTRIC PAIN, ELEVATED LFTS, LIPASE COMPARISON: October 02, 2022 TECHNIQUE: CT abdomen and pelvis with intravenous contrast. All CT scans at this facility use dose modulation, iterative reconstruction, and/or weight based dosing when appropriate to reduce radiation dose to as low as reasonably achievable. FINDINGS: There is a tiny calcified granuloma in the right lung base. The liver contour is smooth. There is no discrete liver mass or intrahepatic biliary dilatation. The spleen, pancreas, and adrenal glands are unremarkable. There is no hydronephrosis. The urinary bladder is unremarkable. There are small stones in the gallbladder. The gastrointestinal tract is unobstructed. There is no intraperitoneal free air or free fluid. The appendix is not identified with certainty. There is no pericecal inflammation. There is no abdominal aortic aneurysm. There are no destructive bone lesions. There is grade 1 subluxation of L5 on S1. Impression No acute inflammatory process in the abdomen and pelvis. Old granulomatous disease. Cholelithiasis. Ordering physician: JUDIE GARCIA RL [id number] Assessment: Darwin Del Valle is a 63 year old male with possible gallstone pancreatitis. He has lipase >[address] finding without obvious pancreatitis. Discussed findings with patient. He denies history of alcoholism. He does have an US with small stones and no biliary dilation. Plan: Gallstone pancreatitis OK to start low fat diet Once abdominal pain is better, we discussed lap negrita with IOC H/O of warfarin, anticoagulation Will get an INR Discussed case with vascular surgeon (anne). Based on chart review and discussion with patient, he is on warfarin for PAD? It is OK to hold warfarin. Will plan to restart Xarelto after surgery. Recent diagnosis of COPD exacerbation Discussed with hospitalist, will do a 5 day steroid taper He reports being on 2L since this past month and this is not his baseline Likely lap negrita on Sunday?, but in the meantime we need him medically optimized. He has higher risk from a respiratory standpoint as his O2 need is recent. Sabrina Villareal M.D. 05/11/2023 16:19 [facility] STEPHY-SURGERY STAFF [facility] 2023-05-02 14:01:39 Associated Order(s): CONSULT STATE INSPECTOR-ADULT Arranged for new home health services with [facility] for medication management related to recurrent COPD exacerbation. [facility]: [phone] BRIAN Howard Experience Planning Strategist - Care Management [facility] [phone] [email or web address] 2023-04-20 13:03:21 Associated Order(s): CONSULT STATE INSPECTOR-ADULT Spoke with pt who reports he has sufficient home O2 portable tanks as well as a O2 concentrator at home that was recently provided by [employer] [facility]. Pt states he is just experiencing more difficulty breathing. SW notified BOOKBINDER CHIEF of update and will assist with any additional dc needs. BRIAN Howard Experience Planning Strategist - Care Management [facility] [phone] [email or web address] NCT PHYSICS INSTRUCTOR [facility] Transfer To 2023-04-19 13:10:34 Associated Order(s): CONSULT WOUND, OSTOMY, OR CONTINENCE CARE TEAM Images from the original note were not included. [facility] Nurse Note NURSING WOUND CARE CONSULT EVALUATION Consulted for evaluation of: Darwin Del Valle is a 63 year old male with wound to right heel. PATIENT ASSESSMENT: Pertinent PMH: Past Medical History: Diagnosis Date COPD (chronic obstructive pulmonary disease) Tobacco consumption Current Nutritional Status: Orders Placed This Encounter Procedures Cardiac (2 gm Sodium, Low Fat, Low Cholesterol) Diet; Diet Texture: Regular. 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 The wound is round. The wound bed is macerated and sloughing with a small amount of exudate. The edges are Well-defined and attached and the surrounding skin is dry and flaky. RECOMMENDATIONS: Cleanse foot daily with chlorhexidine soap (hibiclens). Pat dry completely. Apply silver hydrofiber (Exufiber Ag) to the wound bed and cover with gauze and tape or a foam border dressing. Change dressing every other day or if soiled/saturated. Recommendation for additional consults: Please consider consulting the following services for further evaluation or follow-up: Vascular Surgery as patient has significant vascular history and is followed by vascular services outpatient. PLAN: Nursing to Implement Impaired Skin Integrity Care Plan and appropriate interventions Optimize nutrition and glycemic control (If indicated) to support wound healing Please follow-up with vascular surgery and/or our wound clinic after discharge for ongoing wound care. Please contact [facility] nurse if wound is found to be worsening or not progressing towards healing within one week. Noelle Bay, MSN, RN, CWOCN, CCRN Wound, Ostomy & Continence Nurse [facility] Health P [phone] [email or web address] NCT PHYSICS INSTRUCTOR Noelle Bay RN [facility] 2023-04-19 11:45:37 Associated Order(s): CONSULT STATE INSPECTOR-ADULT ESTEVAN discussed recommendations for home health services for wound care and PT. Pt declines HH and states he can manage his own wound care and does not want anyone in his home. ESTEVAN will notify of update and assist with any additional dc needs. BRIAN Howard Experience Planning Strategist - Care Management [facility] [phone] [email or web address] NCT PHYSICS INSTRUCTOR [facility] 2023-04-19 10:29:39 Associated Order(s): CONSULT ADULT PHYSICAL THERAPY 04/19/23 Patient agreeable to working with physical therapy. Patient met semi reclined in bed. Recommend nursing staff utilize gait belt and Mod Ind/Ind to safely assist patient with mobility out of the bed or chair. PHYSICAL THERAPY EVALUATION Consult received, chart reviewed and evaluation complete this date. Patient is referred to PT for evaluation and treatment. Patient is a 63 year old male who presents to hospital for SOB (shortness of breath) [R06.02]. Discharge Recommendations: Therapy Needs and Potential: Patient without any skilled PT needs at this time. Challenges to Home Transition: increased risk of falls Equipment recommendations: no device Current Functional Status and/or Treatment: AM-PAC 6 Clicks (Raw Score 0=Dependent, 24=Independent; Low function Raw Score 0= Dependent, 32=Independent): 04/19/23 1029 AM-PAC? Basic Mobility Inpatient Short Form (6-Clicks) 1) Turning from your back to your side while in a flat bed without using bedrails? 4 2) Moving from lying on back to sitting on the side of the bed without using bedrails? 4 3) Moving to and from a bed to a chair (including a wheelchair)? 4 4) Standing up from a chair using your arms (e.g., wheelchair, or bedside chair)? 4 5) Walking in hospital room? 4 6) Climbing 3-5 steps with a railing? 4 Raw Score - Basic Mobility 24 T-Scale Score - Basic Mobility 57.68 Bed Mobility: Rolling: Independent Supine-sit: Independent Sitting balance Good Sit to supine: Independent Transfers: Sit to stand: Independent using no device Stand to sit: Independent using no device Static/dynamic standing balance: Good Ambulation: Pre gait performed only at bedside. Pt was coughing and wanted to return to bed. After session, patient sitting edge of bed. Call button provided. RN made aware of status. PLAN OF CARE: PT signs off. See below for complete details. Admit Date: 04/19/2023 Hospital Diagnosis:SOB (shortness of breath) [R06.02] PT Diagnosis: Weakness Weight Bearing Precaution: NA General Precautions: Fall Bracing/Cast present or required:N/A PMH: Past Medical History: Diagnosis Date COPD (chronic obstructive pulmonary disease) Tobacco consumption PSH: Past Surgical History: Procedure Laterality Date ANGIOGRAM VIA LOWER EXTREMITY ACCESS (SHX) Right 07/22/2021 Surgeon: Fuentes Cabrera MD; Location: [facility] OR LOCATION FEMORAL ENDARTERECTOMY Right 04/03/2023 Surgeon: Gilbert Rodríguez MD; Location: [facility] OR LOCATION HERNIA REPAIR TOE AMPUTATION Right 07/26/2021 Surgeon: Onel Segundo DPM; Location: [facility] OR LOCATION TOE AMPUTATION Right 5th digit Rt foot Prior Living Situation: lives with their family and in a mobile home, Stairs with bilateral hand rails DME: No device Prior level of Mobility: community ambulation, house hold ambulation Suspected ischemic or hemorraghic stroke:No Subjective: " I am fine and can get around." Patient/Family Goals: Get better Patient/Family verbalizes understanding of condition: Yes PAIN: denies pain before and after session COMMUNICATION Primary Language: [place] Able to Verbalize needs: Yes Vision:good; no issues reported Hearing:good; no issues reported ORIENTATION/COGNITION: Oriented to: person, place, date/time, and situation Awake: Yes Alert: Yes Dizzy: No Follows Commands: Yes 1-Step Yes Multi-Step Yes Inconsistent: No NEUROLOGICAL Light Touch: within functional limits bilateral LE BALANCE: Sitting: Static: Good Dynamic: Good Standing: Static: Good Dynamic: Good RANGE OF MOTION: within functional limits bilateral LE STRENGTH: 4/5 (Good), bilateral LE ENDURANCE: Good, Room air SKIN INTEGRITY: intact PROBLEM LIST: Decreased endurance ASSESSMENT: Patient is a 63 year old male seen secondary to the above listed diagnosis. No further inpatient PT needs identified at this time. Rehabilitation Potential: NA as no further therapy needs Goals: The following goals are to maximize independence and safety with functional mobility to eventually return to prior living situation and prior functional status. Defer as no PT needs. Treatment Plan: Evaluation only PATIENT EDUCATION: Patient provided with preferred teaching of verbal information and demonstration on role of PT, plan of care, and goals. Shows readiness to learn. Verbal instruction and Demonstration teaching provided. Individual is able to read and verbalizes understanding of teaching provided and accurately returns demonstration of skill. Total Time Tx Codes in Minutes: 0 min Total Treatment Time in Minutes: 10 min Francisca Cruz PT, MPT Bun Icer [email or web address] [place] License- [id number] Critical access hospital [phone] (phone) [phone] (fax) NCT PHYSICS INSTRUCTOR Francisca Cm PT [facility] History and Physical Notes Date/Time Note Provider Source 2024-07-21 23:26:00 [facility] Hospitalist Admission H&P Date of Service: 07/21/2024 CHIEF COMPLAINT: Respiratory distress HISTORY OF PRESENT ILLNESS Darwin Del Valle is a 64 year old male who presents with persistent cough and shortness of breath. Patient has a history of COPD. Patient was having some respiratory distress today so he called EMS. When EMS arrived patient's oxygen saturations were in the 80s. Patient was given albuterol and Atrovent neb treatments x2. Patient was also given IV Solu-Medrol. Patient's oxygen saturations were in the high 90s on non-rebreather; however, whenever they reduced his oxygenation his respiratory status worsened and he continued to require supplemental oxygenation. At this time, patient will be admitted to the hospital for inpatient hospitalization. Will continue with BiPAP support and slowly wean it off. Patient is having a lot of anxiety as he is claustrophobic. Patient will need anxiolytics. Patient will be admitted for inpatient hospitalization. PAST MEDICAL HISTORY Past Medical History: Diagnosis Date Arteriosclerosis COPD (chronic obstructive pulmonary disease) Tobacco consumption PAST SURGICAL HISTORY Past Surgical History: Procedure Laterality Date ANGIOGRAM VIA LOWER EXTREMITY ACCESS (SHX) Right 07/22/2021 Surgeon: Fuentes Cabrera MD; Location: [facility] OR LOCATION ANGIOPLASTY Right 07/23/2023 Surgeon: Gilbert Rodríguez MD; Location: [facility] OR LOCATION ARTERIOGRAM Right 07/23/2023 Surgeon: Gilbert Rodríguez MD; Location: [facility] OR LOCATION CHOLECYSTECTOMY LAPAROSCOPY WITH CHOLANGIOGRAM (SHX) N/A 05/16/2023 Surgeon: Sabrina Villareal MD; Location: [facility] OR LOCATION FEMORAL ENDARTERECTOMY Right 04/03/2023 Surgeon: Gilbert Rodríguez MD; Location: [facility] OR LOCATION HERNIA REPAIR TOE AMPUTATION Right 07/26/2021 Surgeon: Onel Segundo DPM; Location: [facility] OR LOCATION TOE AMPUTATION Right 5th digit Rt foot VASCULAR STENTING Right 07/23/2023 Surgeon: Gilbert Rodríguez MD; Location: [facility] OR LOCATION ALLERGIES Allergies Allergen Reactions Codeine Nausea and/or Vomiting and Unknown - See comments Protamine Other - See comments Hypotension and bradycardia MEDICATIONS Current home medication list reviewed: Current Discharge Medication List STOP taking these medications atorvastatin 40 mg tablet Comments: Reason for Stopping: benzonatate 100 mg capsule Comments: Reason for Stopping: midodrine 10 mg tablet Comments: Reason for Stopping: predniSONE 20 mg tablet Comments: Reason for Stopping: arformoteroL 15 mcg/2 mL nebulizer solution Comments: Reason for Stopping: ipratropium-albuteroL 0.5 mg-3 mg(2.5 mg base)/3 mL nebulizer solution Comments: Reason for Stopping: ipratropium-albuteroL 0.5 mg-3 mg(2.5 mg base)/3 mL nebulizer solution Comments: Reason for Stopping: ALPRAZolam (XANAX) 0.5 mg tablet Comments: Reason for Stopping: pramipexole 0.125 mg tablet Comments: Reason for Stopping: clopidogreL 75 mg tablet Comments: Reason for Stopping: NON-FORMULARY MEDICATION Comments: Reason for Stopping: FAMILY HISTORY Family History Problem Relation Age of Onset Cancer Mother Heart Mother Cancer Father SOCIAL HISTORY Social History Socioeconomic History Marital status: Number of children: 3 Highest education level: 3rd grade Occupational History Occupation: diabled Tobacco Use Smoking status: Every Day Current packs/day: 0.00 Average packs/day: 0.5 packs/day for 50.0 years (25.0 ttl pk-yrs) Types: Cigarettes Start date: 06/17/1969 Last attempt to quit: 06/17/2019 Years since quittin.1 Passive exposure: Current Smokeless tobacco: Never Tobacco comments: Patient states he "smokes every once in awhile" Vaping Use Vaping status: Never Used Substance and Sexual Activity Alcohol use: Not Currently Comment: social Drug use: Never Social History Narrative Lives at home alone Social Determinants of Health Financial Resource Strain: Low Risk (10/27/2023) Overall Financial Resource Strain (CARDIA) Difficulty of Paying Living Expenses: Not very hard Food Insecurity: No Food Insecurity (07/09/2024) NCSS - Food Insecurity Worried About Running Out of Food in the Last Year: No Ran Out of Food in the Last Year: No Transportation Needs: No Transportation Needs (07/09/2024) NCSS - Transportation Lack of Transportation: No Physical Activity: Inactive (10/27/2023) Exercise Vital Sign Days of Exercise per Week: 0 days Minutes of Exercise per Session: 0 min Social Connections: Unknown (10/27/2023) Social Connection and Isolation Panel [NHANES] Frequency of Communication with Friends and Family: Once a week Marital Status: Housing Stability: Not At Risk (07/09/2024) NCSS - Housing/Utilities Has Housing: Yes Worried About Losing Housing: No Unable to Get Utilities: No REVIEW OF SYSTEMS 10 systems negative except per HPI PHYSICAL EXAMINATION BP (!) 86/54 | Pulse 70 | Temp 36.2 ?C (97.2 ?F) (Temporal Artery) | Resp 19 | Ht 1.829 m (6') | Wt 61.7 kg (136 lb) | SpO2 94% | BMI 18.44 kg/m? General: Mild to moderate acute distress HEENT: Normal oral mucosa, anicteric sclerae, NCAT Cardiovascular: Tachycardic with regular rate and rhythm Lungs: Tachypneic; symmetric expansion, clear bilaterally except for end expiratory wheezing Abdomen: Soft, NTND Musculoskeletal: No synovitis, normal muscle mass Genitourinary: Deferred Skin: No rash, no skin lesions Extremities: No clubbing, no cyanosis, no lower extremity edema Neuro: AAOx3, no focal deficits Psych: Normal affect LABS - reviewed pertinent labs as below: CBC BMP PT/INR WBC (10*3/?L) Date Value 07/21/2024 15.55 (H) NA (mmol/L) Date Value 07/21/2024 142 No results found for: "PT" RBC (10*6/?L) Date Value 07/21/2024 4.59 K (mmol/L) Date Value 07/21/2024 4.5 INR (no units) Date Value 10/26/2023 1.0 PLT (10*3/?L) Date Value 07/21/2024 466 (H) CALCIUM (mg/dL) Date Value 07/21/2024 9.7 HGB (g/dL) Date Value 07/21/2024 14.4 CL (mmol/L) Date Value 07/21/2024 103 aPTT HCT (%) Date Value 07/21/2024 45.1 BUN (mg/dL) Date Value 07/21/2024 12 APTT Patient (Seconds) Date Value 04/03/2023 99 (H) CREATININE (mg/dL) Date Value 07/21/2024 0.66 IMAGING - reviewed, pertinent results as below: Hospital Encounter on 07/21/24 CT Chest pulmonary angiogram Narrative EXAM: CT CHEST PULMONARY ANGIOGRAM HISTORY: eval for PE COMPARISON: Chest CT from March 03, 2024 TECHNIQUE: A chest CT was obtained from the thoracic inlet to the base of the lungs during pulmonary arterial phase per CT PE protocol after uncomplicated administration of 80 mL of Omnipaque IV contrast. FINDINGS: No hypodense filling defects are seen within the pulmonary trunk, main pulmonary arteries, or segmental branches. Thickening of the right bronchus intermedius with luminal narrowing. There is soft tissue within the right lower and middle lobe segmental and subsegmental bronchi suggesting because plugging. Peribronchovascular, peripherally predominant nodular opacities in the right lower and middle lobes, increased from previous exam is a right middle lobe. There is associated bronchiectasis. Diffuse background emphysematous changes. Biapical scarring. No evidence of pleural effusion or pneumothorax is noted. The thyroid gland, trachea, and main bronchi are unremarkable. The heart is normal in size with no pericardial effusion present. The great vessels are unremarkable. The limited evaluation of the visualized upper abdomen appears normal. Right hilar 1.3 cm lymph node, likely reactive. Subcarinal lymph node is unchanged also likely reactive. No destructive osseous lesion. Remote left posterior seventh rib fracture. Impression 1. Interval increase in right bronchus intermedius thickening and mucous plugging in the right middle and lower lobes , with increasing nodular/reticulonodular opacities in the right middle lobe, concerning for infectious/inflammatory process. Preliminary Report Dictated by Resident: Hope Gurrola I, Ewa Coello MD., have reviewed this study and agree with the above report. XR Chest 1 vw Narrative EXAM: XR CHEST 1 VW 07/21/2024 4:20 PM HISTORY: 64 years-old Male with eval for pneumonia . TECHNIQUE: Portable AP view of the chest. COMPARISON: 07/08/2024 FINDINGS: Lines and tubes: None. Cardiomediastinal: The cardiomediastinal silhouette is unremarkable. Lungs and pleura: The lungs are hyperinflated. Emphysematous change again noted. Interstitial and reticulonodular opacities with peribronchial thickening, most pronounced at the right infrahilar lung are similar to previous exam. Blunting of the costophrenic angles is unchanged and may be trace pleural thickening. Included osseous structures show no acute abnormality. Impression Similar appearance of COPD and ongoing/chronic endobronchial infection or bronchiolitis. ASSESSMENT/PLAN: 1. Acute respiratory distress; hypoxic and hypercapnic; continue with BiPAP support at night. Anxiolytics as needed as patient has some claustrophobia. Continue with antibiotic therapy. Neb treatments every 6 as needed and patient may benefit from long-acting beta agonist. 2. History of COPD; continue with nebs and steroids 3. History of type 2 diabetes; strict blood sugar control 4. History of GERD 5. GI DVT prophylaxis DVT prophylaxis: enoxaparin Stress ulcer prophylaxis: pantoprazole Code status: FULL Advanced Care Planning (Z71.89) Above assessment and plan discussed at length with patient, patient expressed full understanding. Questions and concerned addressed. Surrogate decision maker: NO Level of care expected after discharge: HOME Time spent: 3 minutes discussing the advanced care plan Smoking Cessation: (Z71.6) Tobacco user?: NO Patient will require inpatient stay of 2 midnights or more given high risk of morbidity and mortality. Critical care time spent for patient care was 50 minutes [place] [employer] SUPPL[employer] TECHNICIAN SUPERVISOR was verified during stay Vincenzo Portillo MD [facility] 2024-03-01 14:44:00 [facility] Hospitalist Admission H&P Date of Service: 03/01/2024 CHIEF COMPLAINT: short of breath HISTORY OF PRESENT ILLNESS Darwin Del Valle is a 64 year old male with history of COPD uses oxygen at home, PAD/severe iliofemoral arterial and tobacco use smoker who presents with gradual onset of shortness of breath for the last 2 to 3 days. Patient reports that he normally uses oxygen at home 2 to 3 L but he has been increasing it up to 4 L and still short of breath. Patient associated symptoms of productive cough and wheezing. Patient denies fever, chills, chest pain,and N/V. Hospitalist consulted for further evaluation and inpatient admission. PAST MEDICAL HISTORY Past Medical History: Diagnosis Date COPD (chronic obstructive pulmonary disease) Tobacco consumption PAST SURGICAL HISTORY Past Surgical History: Procedure Laterality Date ANGIOGRAM VIA LOWER EXTREMITY ACCESS (SHX) Right 07/22/2021 Surgeon: Fuentes Cabrera MD; Location: [facility] OR LOCATION ANGIOPLASTY Right 07/23/2023 Surgeon: Gilbert Rodríguez MD; Location: [facility] OR LOCATION ARTERIOGRAM Right 07/23/2023 Surgeon: Gilbert Rodríguez MD; Location: [facility] OR [place] CHOLECYSTECTOMY LAPAROSCOPY WITH CHOLANGIOGRAM (SHX) N/A 05/16/2023 Surgeon: Sabrina Villareal MD; Location: [facility] OR LOCATION FEMORAL ENDARTERECTOMY Right 04/03/2023 Surgeon: Gilbert Rodríguez MD; Location: [facility] OR [place] HERNIA REPAIR TOE AMPUTATION Right 07/26/2021 Surgeon: Onel Segundo DPM; Location: [facility] OR LOCATION TOE AMPUTATION Right 5th digit Rt foot VASCULAR STENTING Right 07/23/2023 Surgeon: Gilbert Rodríguez MD; Location: [facility] OR LOCATION ALLERGIES Allergies Allergen Reactions Codeine Nausea and/or Vomiting and Unknown - See comments Protamine Other - See comments Hypotension and bradycardia MEDICATIONS Current home medication list reviewed: Current Discharge Medication List START taking these medications Details doxycycline hyclate 100 mg capsule Take 1 capsule by mouth in the morning and 1 capsule in the evening. Qty: 20 capsule, Refills: 0 Associated Diagnoses: COPD with acute exacerbation methylPREDNISolone 4 mg tablets Take by mouth SEE-INSTRUCTIONS. follow package directions Qty: 21 Each, Refills: 0 Associated Diagnoses: COPD with acute exacerbation STOP taking these medications ipratropium-albuteroL 0.5 mg-3 mg(2.5 mg base)/3 mL nebulizer solution Comments: Reason for Stopping: ipratropium-albuteroL 0.5 mg-3 mg(2.5 mg base)/3 mL nebulizer solution Comments: Reason for Stopping: ALPRAZolam (XANAX) 0.5 mg tablet Comments: Reason for Stopping: pramipexole 0.125 mg tablet Comments: Reason for Stopping: clopidogreL 75 mg tablet Comments: Reason for Stopping: NON-FORMULARY MEDICATION Comments: Reason for Stopping: FAMILY HISTORY Family History Problem Relation Age of Onset Cancer Mother Heart Mother Cancer Father SOCIAL HISTORY Social History Socioeconomic History Marital status: Number of children: 3 Highest education level: 3rd grade Occupational History Occupation: diabled Tobacco Use Smoking status: Every Day Current packs/day: 0.00 Average packs/day: 0.5 packs/day for 50.0 years (25.0 ttl pk-yrs) Types: Cigarettes Start date: 06/17/1969 Last attempt to quit: 06/17/2019 Years since quittin.7 Passive exposure: Current Smokeless tobacco: Never Tobacco comments: Patient states he "smokes every once in awhile" Vaping Use Vaping status: Never Used Substance and Sexual Activity Alcohol use: Not Currently Comment: social Drug use: Never Social History Narrative Lives at home alone Social Determinants of Health Financial Resource Strain: Low Risk (10/27/2023) Overall Financial Resource Strain (CARDIA) Difficulty of Paying Living Expenses: Not very hard Food Insecurity: Patient Declined (10/27/2023) Hunger Vital Sign Worried About Running Out of Food in the Last Year: Patient declined Ran Out of Food in the Last Year: Patient declined Transportation Needs: No Transportation Needs (05/15/2023) PRAPARE - Transportation Lack of Transportation (Medical): No Lack of Transportation (Non-Medical): No Physical Activity: Inactive (10/27/2023) Exercise Vital Sign Days of Exercise per Week: 0 days Minutes of Exercise per Session: 0 min Social Connections: Unknown (10/27/2023) Social Connection and Isolation Panel [NHANES] Frequency of Communication with Friends and Family: Once a week Marital Status: Housing Stability: High Risk (10/27/2023) Housing Stability Vital Sign Unable to Pay for Housing in the Last Year: Yes Number of Places Lived in the Last Year: 1 Unstable Housing in the Last Year: No REVIEW OF SYSTEMS Constitutional: negative fevers/chills, weight changes Eyes: negative acute blurry vision, eye discharge Ears, Nose, Mouth, Throat: negative dysphagia, runny nose, sore throat, tinnitus Cardiovascular: negative chest pain, paplitaitons Respiratory: Positive for sob, cough Gastrointestinal: negative abd pain, nausea, vomiting Genitourinary: Negative dysuria, hematuria Musculoskeletal: negative calf pain, swelling Integumentray: negative rash, itching Neurological: negative syncope, focal weakness Psychiatric: negative hallucinations PHYSICAL EXAMINATION BP 100/66 | Pulse 93 | Temp 36.8 ?C (98.3 ?F) | Resp 21 | Ht 1.829 m (6') | Wt 62 kg (136 lb 9.6 oz) | SpO2 95% | BMI 18.53 kg/m? General: No acute distress HEENT: Normal oral mucosa, anicteric sclerae, NCAT Cardiovascular: RRR, strong symmetric radial pulses Lungs: wheezing with O2 @4 L nc Abdomen: Soft, NTND Musculoskeletal: Normal ROM, normal muscle mass Genitourinary: Normal Skin: No rash, lesions Neuro: AAOx3, no focal deficits Psych: Normal affect LABS - reviewed pertinent labs as below: CBC BMP PT/INR WBC (10*3/?L) Date Value 03/01/2024 18.57 (H) NA (mmol/L) Date Value 03/01/2024 134 (L) No results found for: "PT" RBC (10*6/?L) Date Value 03/01/2024 4.76 K (mmol/L) Date Value 03/01/2024 4.6 INR (no units) Date Value 10/26/2023 1.0 PLT (10*3/?L) Date Value 03/01/2024 414 (H) CALCIUM (mg/dL) Date Value 03/01/2024 9.4 HGB (g/dL) Date Value 03/01/2024 15.1 CL (mmol/L) Date Value 03/01/2024 95 (L) aPTT HCT (%) Date Value 03/01/2024 46.6 BUN (mg/dL) Date Value 03/01/2024 11 APTT Patient (Seconds) Date Value 04/03/2023 99 (H) CREATININE (mg/dL) Date Value 03/01/2024 0.80 IMAGING - reviewed, pertinent results as below: Hospital Encounter on 03/01/24 XR CHEST 1 VW Narrative EXAM: XR CHEST 1 VW COMPARISON: Chest x-ray on 12/01/2023 HISTORY: sob FINDINGS: Lungs: Persistent large lung volumes. Persistent prominence of the interstitial lung markings with peribronchial cuffing. Right basilar atelectasis. No focal consolidations. Blunting of bilateral costophrenic angles, unchanged. No pneumothorax. Heart/Mediastinum: The cardiac silhouette appears normal accounting for technique and degree of inspiration. Bones and soft tissues: Mild bilateral acromioclavicular osteoarthrosis is noted. Bony remodeling of the posterior left seventh rib is visualized. No acute osseous abnormality is visualized. Impression No acute cardiopulmonary process. Emphysematous lungs. Preliminary Report Dictated by Resident: Fahad Bolivar ASSESSMENT/PLAN Brain Scarlet Del Valle 64 year old male admitted for: Acute COPD exacerbation -- Oxygen per RT protocols, Patient uses Oxygen at home 3-4 Liters -- schedule duo nebs -- IV prednisone 5 days -- Zithromax 500 daily for 1/3 days -- escalation of oxygen -- pulmonary consult at discharge Tobacco abuse: --Offered nicotine patch, encourage cessation Arteriosclerosis -- Patient has clopidogrel on his med list but he states he has never taken it. And not sure if he received stents. Prophylaxis: DVT- enoxaparin Stress Ulcer: no indication for prophylaxis Advanced Care Planning (Z71.89) Above assessment and plan discussed at length with patient, patient expressed full understanding. Questions and concerned addressed, I spent 18 minutes discussing the advance care plan. Surrogate decision maker: self lives home alone Level of care expected after discharge: independent Code status: Full code Smoking Cessation: (Z71.6) Tobacco user?: smoker Patient does not want a smoking patch and understands the risks Time spent: 4 minutes discussing smoking cessation Patient will require inpatient stay of 2 midnights or more given high risk of morbidity and mortality. [place] [employer] SUP[employer] TECHNICIAN SUPERVISOR was viewed during this stay AFSANEH Sims Associated attestation - Kedar Madera MD - 03/01/2024 6:21 PM CDT I performed a substantial part of the MDM during this patient's hospital visit. I personally made or approved the documented management plan and acknowledge its risk of complications. I agree with the findings and documentation provided in the [facility]'s notes. Patient is a 64 y/o M with a PMH of COPD, chronic respiratory failure with hypoxia and tobacco abuse who presented with hyponatremia, hypochloremia, metabolic alkalosis and acute on chronic respiratory failure with hypoxia due to a COPD exacerbation. I agree with Rolly, PO azithromycin, prednisone and oxygen therapy. On 3 L NC, wean oxygen as tolerated. Follow-up CRP and procalcitonin levels. Medicine team will continue to provide daily care. Kedar Madera MD 03/01/2024 6:16 PM [facility] 2023-12-01 20:42:00 [facility] Hospitalist Admission H&P Date of Service: 12/01/2023 CHIEF COMPLAINT: Respiratory distress; shortness of breath HISTORY OF PRESENT ILLNESS Darwin Del Valle is a 63 year old male who presents with shortness of breath with respiratory distress. Patient with a history of COPD on home oxygen. Patient on 2 to 3 L of oxygen at home. Patient does not follow-up with a clinical supervisor. Patient takes nebs every 3 hours. Patient quit smoking 3 to 4 years ago. Patient does not really give me much more information. Patient will be admitted to the hospital for acute COPD exacerbation. Patient with severe emphysema and pulmonary nodules on prior CT imaging studies. At this time, patient will be admitted to the hospital for continued IV steroids and IV antibiotics. PAST MEDICAL HISTORY Past Medical History: Diagnosis Date COPD (chronic obstructive pulmonary disease) Tobacco consumption PAST SURGICAL HISTORY Past Surgical History: Procedure Laterality Date ANGIOGRAM VIA LOWER EXTREMITY ACCESS (SHX) Right 07/22/2021 Surgeon: Fuentes Cabrera MD; Location: [facility] OR LOCATION ANGIOPLASTY Right 07/23/2023 Surgeon: Gilbert Rodríguez MD; Location: [facility] OR LOCATION ARTERIOGRAM Right 07/23/2023 Surgeon: Gilbert Rodríguez MD; Location: [facility] OR LOCATION CHOLECYSTECTOMY LAPAROSCOPY WITH CHOLANGIOGRAM (SHX) N/A 05/16/2023 Surgeon: Sabrina Villareal MD; Location: [facility] OR LOCATION FEMORAL ENDARTERECTOMY Right 04/03/2023 Surgeon: Gilbert Rodríguez MD; Location: [facility] OR LOCATION HERNIA REPAIR TOE AMPUTATION Right 07/26/2021 Surgeon: Onel Segundo DPM; Location: [facility] OR LOCATION TOE AMPUTATION Right 5th digit Rt foot VASCULAR STENTING Right 07/23/2023 Surgeon: Gilbert Rodríguez MD; Location: [facility] OR LOCATION ALLERGIES Allergies Allergen Reactions Codeine Nausea and/or Vomiting and Unknown - See comments Protamine Other - See comments Hypotension and bradycardia MEDICATIONS Current home medication list reviewed: Current Discharge Medication List START taking these medications Details azithromycin 250 mg tablet Take 1 tablet by mouth in the morning. Qty: 4 tablet, Refills: 0 Associated Diagnoses: COPD exacerbation benzonatate 100 mg capsule Take 1 capsule by mouth 3 (three) times daily as needed for Cough. Qty: 14 capsule, Refills: 0 Associated Diagnoses: COPD exacerbation predniSONE 20 mg tablet 40mg PO QD x4d Qty: 8 tablet, Refills: 0 Associated Diagnoses: COPD exacerbation STOP taking these medications pramipexole 0.125 mg tablet Comments: Reason for Stopping: ipratropium-albuteroL 0.5 mg-3 mg(2.5 mg base)/3 mL nebulizer solution Comments: Reason for Stopping: clopidogreL 75 mg tablet Comments: Reason for Stopping: NON-FORMULARY MEDICATION Comments: Reason for Stopping: FAMILY HISTORY Family History Problem Relation Age of Onset Cancer Mother Heart Mother Cancer Father SOCIAL HISTORY Social History Socioeconomic History Marital status: Number of children: 3 Highest education level: 3rd grade Occupational History Occupation: diabled Tobacco Use Smoking status: Every Day Current packs/day: 0.00 Average packs/day: 0.5 packs/day for 50.0 years (25.0 ttl pk-yrs) Types: Cigarettes Start date: 06/17/1969 Last attempt to quit: 06/17/2019 Years since quittin.4 Passive exposure: Current Smokeless tobacco: Never Tobacco comments: Patient states he "smokes every once in awhile" Vaping Use Vaping status: Never Used Substance and Sexual Activity Alcohol use: Yes Comment: social Drug use: Never Social History Narrative Lives at home alone Social Determinants of Health Financial Resource Strain: Low Risk (10/27/2023) Overall Financial Resource Strain (CARDIA) Difficulty of Paying Living Expenses: Not very hard Food Insecurity: Patient Declined (10/27/2023) Hunger Vital Sign Worried About Running Out of Food in the Last Year: Patient declined Ran Out of Food in the Last Year: Patient declined Transportation Needs: No Transportation Needs (05/15/2023) PRAPARE - Transportation Lack of Transportation (Medical): No Lack of Transportation (Non-Medical): No Physical Activity: Inactive (10/27/2023) Exercise Vital Sign Days of Exercise per Week: 0 days Minutes of Exercise per Session: 0 min Social Connections: Unknown (10/27/2023) Social Connection and Isolation Panel [NHANES] Frequency of Communication with Friends and Family: Once a week Marital Status: Housing Stability: High Risk (10/27/2023) Housing Stability Vital Sign Unable to Pay for Housing in the Last Year: Yes Number of Places Lived in the Last Year: 1 Unstable Housing in the Last Year: No REVIEW OF SYSTEMS 10 systems negative except per HPI PHYSICAL EXAMINATION BP 105/67 | Pulse 79 | Temp 36.5 ?C (97.7 ?F) | Resp 22 | Ht 6' (1.829 m) | Wt 139 lb 14.4 oz (63.5 kg) | SpO2 94% | BMI 18.97 kg/m? General: No acute distress HEENT: Normal oral mucosa, anicteric sclerae, NCAT Cardiovascular: RRR Lungs: Diminished breath sounds diffusely with end expiratory wheezing Abdomen: Soft, NTND Musculoskeletal: No synovitis, normal muscle mass Genitourinary: Deferred Skin: No rash, no skin lesions Extremities: No clubbing, no cyanosis, no lower extremity edema Neuro: AAOx3, no focal deficits Psych: Normal affect LABS - reviewed pertinent labs as below: CBC BMP PT/INR WBC (10*3/?L) Date Value 12/01/2023 8.15 NA (mmol/L) Date Value 12/01/2023 139 No results found for: "PT" RBC (10*6/?L) Date Value 12/01/2023 4.51 K (mmol/L) Date Value 12/01/2023 4.3 INR (no units) Date Value 10/26/2023 1.0 PLT (10*3/?L) Date Value 12/01/2023 354 (H) CALCIUM (mg/dL) Date Value 12/01/2023 9.0 HGB (g/dL) Date Value 12/01/2023 14.3 CL (mmol/L) Date Value 12/01/2023 98 aPTT HCT (%) Date Value 12/01/2023 44.0 BUN (mg/dL) Date Value 12/01/2023 7 APTT Patient (Seconds) Date Value 04/03/2023 99 (H) CREATININE (mg/dL) Date Value 12/01/2023 0.83 IMAGING - reviewed, pertinent results as below: Hospital Encounter on 12/01/23 XR CHEST 1 VW Narrative Chest X-Ray Indication: shortness of breath Technique: Frontal view(s) of the chest submitted for interpretation. Comparison: October 25, 2023 RL: [id number] Ordering Clinician: AJAY ALVAREZ Technical Quality: Adequate Findings: No consolidation or effusion. No acute mediastinal abnormality. No acute fractures. Impression Impression: No acute abnormalities. SSMENT: 1. Acute COPD exacerbation 2. History of tobacco abuse PLAN: 1. Acute COPD exacerbation; continue with nebs, IV steroid, and IV antibiotics. Patient will need further follow-up as an outpatient with pulmonary. Patient may benefit from long-acting beta agonist. Patient on home oxygen. Patient will be monitored closely on the medical surgical floor and patient will benefit from more aggressive COPD treatment as an outpatient. DVT prophylaxis: enoxaparin Stress ulcer prophylaxis: pantoprazole Code status: FULL Advanced Care Planning (Z71.89) Above assessment and plan discussed at length with patient, patient expressed full understanding. Questions and concerned addressed. Surrogate decision maker: NO Level of care expected after discharge: HOME Time spent: 3 minutes discussing the advanced care plan Smoking Cessation: (Z71.6) Tobacco user?: NO Patient will require inpatient stay of 2 midnights or more given high risk of morbidity and mortality [place] [employer]TRAL SUPPLY TECHNICIAN SUPERVISOR was verified during stay Vincenzo Portillo MD [facility] 2023-10-25 23:44:28 BERNARDA Reinoso Admit H&P PCP: Betty Schmitz Date of Service: 10/25/2023 CHIEF COMPLAINT: SOB, cough HISTORY OF PRESENT ILLNESS Darwin Del Valle is a 63 year old male with a PMH of COPD, chronic respiratory failure with hypoxia on home 3L O2, nonhealing right lower extremity ulcer secondary to PAD/severe iliofemoral arterial disease s/p femoral enterectomy 04/03/2023, right fifth toe amputation, plaque psoriasis, tobacco abuse, HTN and HLD who presents for SOB/cough. In ED, pt vitals remarkable for HR 100 otherwise unremarkable. Labs remarkable for Wbc 11.59, Na 134, bicarb 34, covid positive 10/11. CXR remarkable for Pulmonary hyperexpansion again noted. Stable blunting of the left costophrenic angle may reflect a tiny pleural effusion or pleural thickening. Remote L 7th rib fx. Transferred from [place]. Pt reports he as been having shortness of breath since father's day 10/13 that has progressively worsened to the point where he went in to see his PCP yesterday who sent him to the ED. Pt reports wheezing and coughing. Reports coughing up greenish sputum that is very thick. Pt reports chest congestion and feels that he is trying to cough up congestion but cannot because it is thick. Pt denies CP, abd pain, nv, fever, headache. Pt reports he is on 3 L O2 at home. Pt reports he smokes about a pack a week and has done so for 50 years. Of note pt was admitted to [facility] on 10/11 for Acute on chronic respiratory failure with hypoxia due to a COPD exacerbation related to a COVID-19 infection (POA). Pt denies infectious symptoms from COVID infection and reports he thinks covid test was false positive. PSurgical Hx: Past Surgical History: Procedure Laterality Date ANGIOGRAM VIA LOWER EXTREMITY ACCESS (SHX) Right 07/22/2021 Surgeon: Fuentes Cabrera MD; Location: [facility] OR LOCATION ANGIOPLASTY Right 07/23/2023 Surgeon: Gilbert Rodríguez MD; Location: [facility] OR LOCATION ARTERIOGRAM Right 07/23/2023 Surgeon: Gilbert Rodríguez MD; Location: [facility] OR LOCATION CHOLECYSTECTOMY LAPAROSCOPY WITH CHOLANGIOGRAM (SHX) N/A 05/16/2023 Surgeon: Sabrina Villareal MD; Location: [facility] OR LOCATION FEMORAL ENDARTERECTOMY Right 04/03/2023 Surgeon: Gilbert Rodríguez MD; Location: [facility] OR LOCATION HERNIA REPAIR TOE AMPUTATION Right 07/26/2021 Surgeon: Onel Segundo DPM; Location: [facility] OR LOCATION TOE AMPUTATION Right 5th digit Rt foot VASCULAR STENTING Right 07/23/2023 Surgeon: Gilbert Rodríguez MD; Location: [facility] OR LOCATION Family Hx: Family History Problem Relation Age of Onset Cancer Mother Heart Mother Cancer Father Social Hx: Social History Tobacco Use Smoking status: Every Day Current packs/day: 0.00 Average packs/day: 0.5 packs/day for 50.0 years (25.0 ttl pk-yrs) Types: Cigarettes Start date: 06/17/1969 Last attempt to quit: 06/17/2019 Years since quittin.3 Passive exposure: Current Smokeless tobacco: Never Vaping Use Vaping status: Never Used Substance Use Topics Alcohol use: Yes Comment: social Drug use: Never Review of Systems: 12 point ROS negative except per HPI PHYSICAL EXAMINATION Vitals: 10/25/23 2200 10/25/23 2204 10/25/23 2328 10/26/23 0018 BP: 100/73 118/75 Pulse: 79 94 77 Resp: Temp: 36.5 ?C (97.7 ?F) 35.3 ?C (95.5 ?F) TempSrc: Oral Oral SpO2: 98% 93% 96% Weight: Height: General: aox4, nad HEENT: eomi, mmm Cardio: rrr wo mrg Resp: wheezing GI: abd soft, nd, nttp MSK: ngd Ext: ulcer of RLE R heel noted, scabbed over, R 5th toe amputated Skin: no rash on visible skin Neuro: no focal deficits Psych: alert & cooperative LABS - reviewed pertinent labs as below: hpi IMAGING - reviewed, pertinent results as below: hpi CHART REVIEW: pertinent information as below: hpi ASSESSMENT/PLAN Darwin Del Valle is a 63 year old male with PMH as listed above, admitted to the hospital with: COPD exacerbation, MMRC 4, CAT 31 chronic respiratory failure with hypoxia on home 3L O2 Tobacco abuse Pt presenting with SOB and cough likely due to COPD exacerbation. Will order prednisone, duonebs, azithro. Will order pulm toilet as pt reporting thick secretions. Noted to be COVID positive on 10/11 in previous admission, treated with remdes and dex although pt himself was not symptomatic from this infection. No consolidation on CXR. Will order procal to rule out infection. - admit reinoso - admit labs - azithro - prednisone 40 mg 5 days - duonebs - pulm toilet - O2 per protocol nonhealing right lower extremity ulcer secondary to PAD/severe iliofemoral arterial disease s/p femoral enterectomy 04/03/2023, right fifth toe amputation plaque psoriasis HTN HLD Chronic conditions. Monitor. - c/w home meds DIET: Regular Diet; Diet Texture: Regular. DVT ppx- Enoxaparin, prophylactic PAIN: Tylenol Code Status: FULL addressed Brennon Nichole DO Internal Medicine, PGY-2 [place] Team Associated attestation - Walter Hdez MD - 10/26/2023 1:20 AM CDT I personally examined the patient on 10/25/[address] Nichole's resident note as written. I actively participated in the decision-making process. Please see the resident's note for additional details. Walter Hdez MD Division of Internal [employer] [facility] 2023-10-13 03:06:37 MEDICINE [place] ADMIT H&P Date of Service: 10/13/2023 CHIEF COMPLAINT: shortness of breath Subjective History of Present Illness 63 yo male with pmh of COPD who presents to the ED due to worsening shortness of breath that started yesterday at noon. Associated symptoms: centralized chest tightness, wheezing. He denies any fever, chills, rhinorrhea PAST MEDICAL HISTORY Past Medical History: Diagnosis Date COPD (chronic obstructive pulmonary disease) Tobacco consumption Past Surgical History: Procedure Laterality Date ANGIOGRAM VIA LOWER EXTREMITY ACCESS (SHX) Right 07/22/2021 Surgeon: Fuentes Cabrera MD; Location: [facility] OR LOCATION ANGIOPLASTY Right 07/23/2023 Surgeon: Gilbert Rodríguez MD; Location: [facility] OR LOCATION ARTERIOGRAM Right 07/23/2023 Surgeon: Gilbert Rodríguez MD; Location: [facility] OR LOCATION CHOLECYSTECTOMY LAPAROSCOPY WITH CHOLANGIOGRAM (SHX) N/A 05/16/2023 Surgeon: Sabrina Villareal MD; Location: [facility] OR LOCATION FEMORAL ENDARTERECTOMY Right 04/03/2023 Surgeon: Gilbert Rodríguez MD; Location: [facility] OR [place] HERNIA REPAIR TOE AMPUTATION Right 07/26/2021 Surgeon: Onel Segundo DPM; Location: [facility] OR LOCATION TOE AMPUTATION Right 5th digit Rt foot VASCULAR STENTING Right 07/23/2023 Surgeon: Gilbert Rodríguez MD; Location: [facility] OR LOCATION Family History Problem Relation Age of Onset Cancer Mother Heart Mother Cancer Father ALLERGIES Allergies Allergen Reactions Codeine Nausea and/or Vomiting and Unknown - See comments Protamine Other - See comments Hypotension and bradycardia MEDICATIONS No current facility-administered medications on file prior to encounter. Current Outpatient Medications on File Prior to Encounter Medication Sig Dispense Refill ipratropium-albuteroL 0.5 mg-3 mg(2.5 mg base)/3 mL nebulizer solution Inhale 3 mL every 4 (four) hours as needed for Wheezing or Shortness of Breath. 540 mL 2 ipratropium-albuteroL 0.5 mg-3 mg(2.5 mg base)/3 mL nebulizer solution Inhale 3 mL every 4 (four) hours as needed for Wheezing or Shortness of Breath. 12 mL 3 [START ON 12/10/2023] clopidogreL 75 mg tablet Take 1 tablet by mouth in the morning. 360 tablet 0 NON-FORMULARY MEDICATION OXYGEN I attest that the foregoing medication list in the medical record is true, accurate and complete to the best of my knowledge. SOCIAL HISTORY Social History Socioeconomic History Marital status: Number of children: 3 Highest education level: 3rd grade Occupational History Occupation: diabled Tobacco Use Smoking status: Every Day Current packs/day: 0.00 Average packs/day: 0.5 packs/day for 50.0 years (25.0 ttl pk-yrs) Types: Cigarettes Start date: 06/17/1969 Last attempt to quit: 06/17/2019 Years since quittin.3 Passive exposure: Current Smokeless tobacco: Never Vaping Use Vaping status: Never Used Substance and Sexual Activity Alcohol use: Yes Comment: social Drug use: Never Social History Narrative Lives at home alone Social Determinants of Health Financial Resource Strain: Low Risk (05/15/2023) Overall Financial Resource Strain (CARDIA) Difficulty of Paying Living Expenses: Not hard at all Food Insecurity: No Food Insecurity (05/15/2023) Hunger Vital Sign Worried About Running Out of Food in the Last Year: Never true Ran Out of Food in the Last Year: Never true Transportation Needs: No Transportation Needs (05/15/2023) PRAPARE - Transportation Lack of Transportation (Medical): No Lack of Transportation (Non-Medical): No Physical Activity: Inactive (05/15/2023) Exercise Vital Sign Days of Exercise per Week: 0 days Minutes of Exercise per Session: 0 min Social Connections: Unknown (05/15/2023) Social Connection and Isolation Panel [NHANES] Frequency of Communication with Friends and Family: More than three times a week Marital Status: Housing Stability: Low Risk (05/15/2023) Housing Stability Vital Sign Unable to Pay for Housing in the Last Year: No Number of Places Lived in the Last Year: 1 Unstable Housing in the Last Year: No REVIEW OF SYSTEMS Review of Systems Constitutional: Negative. HENT: Negative. Eyes: Negative. Respiratory: Positive for chest tightness and wheezing. Negative for apnea, cough, choking, shortness of breath and stridor. Breasts: Negative. Cardiovascular: Negative. Gastrointestinal: Negative. Genitourinary: Negative. Musculoskeletal: Negative. Skin: Negative. Neurological: Negative. Psychiatric/Behavioral: Negative. Endocrine: Endocrine negative Objective PHYSICAL EXAMINATION Vitals: 10/13/23 0030 10/13/23 0100 10/13/23 0112 10/13/23 0200 BP: 102/77 104/63 107/63 Pulse: 116 93 88 Resp: 26 21 20 Temp: TempSrc: SpO2: 100% 95% 97% 97% Weight: Height: Physical Exam Vitals and nursing note reviewed. Constitutional: General: He is not in acute distress. Appearance: Normal appearance. He is not ill-appearing, toxic-appearing or diaphoretic. HENT: Head: Normocephalic and atraumatic. Right Ear: External ear normal. Left Ear: External ear normal. Nose: Nose normal. Mouth/Throat: Mouth: Mucous membranes are dry. Pharynx: Oropharynx is clear. No oropharyngeal exudate. Eyes: General: No scleral icterus. Extraocular Movements: Extraocular movements intact. Conjunctiva/sclera: Conjunctivae normal. Pupils: Pupils are equal, round, and reactive to light. Cardiovascular: Rate and Rhythm: Normal rate and regular rhythm. Pulmonary: Effort: Pulmonary effort is normal. Breath sounds: Normal breath sounds. Abdominal: General: Abdomen is flat. There is no distension. Palpations: Abdomen is soft. Tenderness: There is no abdominal tenderness. There is no guarding. Musculoskeletal: General: Normal range of motion. Cervical back: Normal range of motion and neck supple. Right lower leg: No edema. Left lower leg: No edema. Neurological: Mental Status: He is alert. Psychiatric: Mood and Affect: Mood normal. Behavior: Behavior normal. Thought Content: Thought content normal. Judgment: Judgment normal. LABS/IMAGING - reviewed Exam: XR CHEST 1 VW, 10/12/2023 10:45 PM. Ordering Physician: NAKUL ORTIZ. History: r/o infiltrate . Technique: One view of the chest. Comparison: Chest radiograph 05/10/2023. Findings: Hyperexpanded lungs. No focal consolidation. No pneumothorax or effusion. Normal size of the cardiac silhouette. No acute osseous finding on this single view. IMPRESSION Impression: No acute cardiopulmonary finding. Assessment & Plan Darwin Del Valle is a 63 year old male with PMH as listed above, admitted to the hospital with: Acute respiratory failure: -- Will treat underlying infection -- Oxygen supplementation as neefef 2. COVID infection: not noted to have pneumonia on xray -- Will order for ascorbic acid, vitamin D, and zinc -- Will continue to monitor oxygenation -- Have encourage activity as tolerated and proning if dyspnea -- Oxygen supplementation as needed -- Will start remdesivir -- COVID-19 isolation precaution 3. COPD exacerbation -- Will continue with dexamethasone -- Will order scheduled duoneb as well as albuterol prn -- Oxygen supplementation as needed -- Will order for other supportive therapy (eg, anti-tussive, decongestant) 4. Current smoker: spoke for greater than 3 minutes about smoking cessation. At this time, patient refuse smoking cessation therapy. Prophylaxis: DVT- enoxaparin Code Status: Full Code Estimated LOS: This inpatient admission will likely require greater than or equal to 2 Midnights. Management is not feasible as an outpatient and there is concern for adverse outcomes if not managed in an inpatient setting. Advance care planning discussed for 18 mins with patient at bedside. 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 Patient has been recently admitted and seen in the ED several times for this similar complaint. Last admission and subsequently discharge was on 05/02/2023. During that admission, patient was found to have recurrent COPD exacerbation for which he was started on antibiotic therapy along with steroids and nebs with good effect. He comes back due to similar complaint that started. He was seen in the ED yesterday for same issue but refused admission that has been happening for the past 2-3 days. Associated symptoms: fever, wheezing, productive cough, and abdominal pain. He describes the epigastric non-radiating abdominal pain for the past 2 -3 day with associated nausea and watery diarrhea. Warfarin?? 1 pk/day - nicotine PAST MEDICAL HISTORY Past Medical History: Diagnosis Date COPD (chronic obstructive pulmonary disease) Tobacco consumption Past Surgical History: Procedure Laterality Date ANGIOGRAM VIA LOWER EXTREMITY ACCESS (SHX) Right 07/22/2021 Surgeon: Fuentes Cabrera MD; Location: [facility] OR LOCATION FEMORAL ENDARTERECTOMY Right 04/03/2023 Surgeon: Gilbert Rodríguez MD; Location: [facility] OR LOCATION HERNIA REPAIR TOE AMPUTATION Right 07/26/2021 Surgeon: Onel Segundo DPM; Location: [facility] OR LOCATION TOE AMPUTATION Right 5th digit Rt foot Family History Problem Relation Age of Onset Cancer Mother Heart Mother Cancer Father ALLERGIES Allergies Allergen Reactions Codeine Nausea and/or Vomiting and Unknown - See comments MEDICATIONS No current facility-administered medications on file prior to encounter. Current Outpatient Medications on File Prior to Encounter Medication Sig Dispense Refill predniSONE 20 mg tablet Take 3 tablets by mouth every morning for 5 days. 15 tablet 0 apixaban 5 mg tablet Take 1 tablet by mouth in the morning and 1 tablet in the evening. Indications: history of deep vein thrombosis 180 tablet 0 albuterol-ipratropium (COMBIVENT RESPIMAT) 20-100 mcg/actuation inhaler Inhale 1 Puff 4 (four) times daily for 30 days. 4 g 0 benzonatate 100 mg capsule Take 2 capsules by mouth every 8 (eight) hours as needed for Cough for up to 30 days. 30 capsule 0 budesonide-formoteroL 160-4.5 mcg/actuation inhaler Inhale 2 Puffs in the morning and 2 Puffs in the evening. 10.2 g 0 collagenase 250 unit/gram ointment Apply to affected area(s) daily for 30 days. 30 g 0 tamsulosin 0.4 mg 24 hr capsule Take 1 capsule by mouth in the morning for 30 days. 30 capsule 0 warfarin 2.5 mg tablet Take 1 tablet by mouth every evening for 30 days. 30 tablet 0 nicotine 14 mg/24 hr patch Apply 1 Patch to area(s) every 24 (twenty-four) hours. 30 Patch 2 I attest that the foregoing medication list in the medical record is true, accurate and complete to the best of my knowledge. SOCIAL HISTORY Social History Socioeconomic History Marital status: Number of children: 3 Highest education level: 3rd grade Occupational History Occupation: diabled Tobacco Use Smoking status: Every Day Packs/day: 0.50 Years: 50.00 Additional pack years: 0.00 Total pack years: 25.00 Types: Cigarettes Last attempt to quit: 06/17/2019 Years since quittin.9 Passive exposure: Current Smokeless tobacco: Never Vaping Use Vaping Use: Never used Substance and Sexual Activity Alcohol use: Yes Comment: social Drug use: Never Social History Narrative Lives at home alone Social Determinants of Health Financial Resource Strain: Low Risk (04/19/2023) Overall Financial Resource Strain (CARDIA) Difficulty of Paying Living Expenses: Not hard at all Food Insecurity: No Food Insecurity (04/19/2023) Hunger Vital Sign Worried About Running Out of Food in the Last Year: Never true Ran Out of Food in the Last Year: Never true Transportation Needs: No Transportation Needs (04/19/2023) PRAPARE - Transportation Lack of Transportation (Medical): No Lack of Transportation (Non-Medical): No Physical Activity: Inactive (04/19/2023) Exercise Vital Sign Days of Exercise per Week: 0 days Minutes of Exercise per Session: 0 min Social Connections: Unknown (04/19/2023) Social Connection and Isolation Panel [NHANES] Frequency of Communication with Friends and Family: More than three times a week Marital Status: Housing Stability: Low Risk (04/19/2023) Housing Stability Vital Sign Unable to Pay for Housing in the Last Year: No Number of Places Lived in the Last Year: 1 Unstable Housing in the Last Year: No REVIEW OF SYSTEMS Review of Systems Constitutional: Positive for chills. Negative for activity change, appetite change, diaphoresis, fatigue, fever and unexpected weight change. HENT: Positive for rhinorrhea. Negative for congestion, dental problem, drooling, ear discharge, ear pain, facial swelling, hearing loss, mouth sores, nosebleeds, postnasal drip, sinus pressure, sneezing, sore throat, tinnitus, trouble swallowing and voice change. Eyes: Negative. Respiratory: Positive for chest tightness and shortness of breath. Negative for apnea, cough, choking, wheezing and stridor. Breasts: Negative. Cardiovascular: Negative. Gastrointestinal: Positive for abdominal pain, diarrhea and nausea. Negative for abdominal distention, anal bleeding, blood in stool, constipation, rectal pain and vomiting. Genitourinary: Negative. Musculoskeletal: Negative for neck pain and neck stiffness. Skin: Negative. Neurological: Negative. Psychiatric/Behavioral: Negative. Endocrine: Endocrine negative Objective PHYSICAL EXAMINATION Vitals: 05/11/23 1733 05/11/23 1915 05/11/23 2002 05/11/232011 BP: 113/70 102/61 Pulse: 88 83 85 82 Resp: 16 18 20 20 Temp: 36.9 ?C (98.4 ?F) 36.4 ?C (97.5 ?F) TempSrc: SpO2: 96% 93% 93% 95% Weight: Height: Physical Exam Vitals and nursing note reviewed. Constitutional: General: He is not in acute distress. Appearance: Normal appearance. He is not ill-appearing, toxic-appearing or diaphoretic. HENT: Head: Normocephalic and atraumatic. Right Ear: External ear normal. Left Ear: External ear normal. Nose: Nose normal. No congestion. Mouth/Throat: Mouth: Mucous membranes are moist. Pharynx: No oropharyngeal exudate or posterior oropharyngeal erythema. Eyes: General: No scleral icterus. Extraocular Movements: Extraocular movements intact. Conjunctiva/sclera: Conjunctivae normal. Pupils: Pupils are equal, round, and reactive to light. Cardiovascular: Rate and Rhythm: Normal rate and regular rhythm. Heart sounds: No murmur heard. No friction rub. No gallop. Pulmonary: Effort: Pulmonary effort is normal. No respiratory distress. Breath sounds: No stridor. Wheezing and rales present. No rhonchi. Chest: Chest wall: Tenderness present. Abdominal: General: Abdomen is flat. Bowel sounds are normal. There is no distension. Palpations: Abdomen is soft. Tenderness: There is no abdominal tenderness. There is no guarding. Musculoskeletal: General: Normal range of motion. Right lower leg: No edema. Left lower leg: No edema. Skin: General: Skin is warm and dry. Neurological: Mental Status: He is alert. Psychiatric: Mood and Affect: Mood normal. Behavior: Behavior normal. Thought Content: Thought content normal. Judgment: Judgment normal. LABS/IMAGING - reviewed CT ABDOMEN PELVIS W CONTRAST HISTORY: Abdominal pain, acute, nonlocalized EPIGASTRIC PAIN, ELEVATED LFTS, LIPASE COMPARISON: October 02, 2022 TECHNIQUE: CT abdomen and pelvis with intravenous contrast. All CT scans at this facility use dose modulation, iterative reconstruction, and/or weight based dosing when appropriate to reduce radiation dose to as low as reasonably achievable. FINDINGS: There is a tiny calcified granuloma in the right lung base. The liver contour is smooth. There is no discrete liver mass or intrahepatic biliary dilatation. The spleen, pancreas, and adrenal glands are unremarkable. There is no hydronephrosis. The urinary bladder is unremarkable. There are small stones in the gallbladder. The gastrointestinal tract is unobstructed. There is no intraperitoneal free air or free fluid. The appendix is not identified with certainty. There is no pericecal inflammation. There is no abdominal aortic aneurysm. There are no destructive bone lesions. There is grade 1 subluxation of L5 on S1. IMPRESSION No acute inflammatory process in the abdomen and pelvis. Old granulomatous disease. Cholelithiasis. Exam: Chest (1 View), 05/10/2023 12:45 AM. Ordering Physician: ELSIE RAMOS. History: dyspnea . Technique: One view of the chest. Comparison: Chest radiograph 05/01/2023, CT chest angiogram 05/01/2023. Findings: Central bronchial wall thickening. No focal consolidation. Increased lung volumes. No pneumothorax or effusion. Normal size of the cardiac silhouette. No acute osseous finding on this single view. IMPRESSION Impression: bronchiolitis without consolidating opacity. Assessment & Plan Darwin Del Valle is a 63 year old male with PMH as listed above, admitted to the hospital with: Acute on chronic respiratory failure: -- Will treat underlying condition -- Oxygen supplementation 2. COPD exacerbation -- Will start levofloxacin -- Will continue with duoneb scheduled/prn -- Oxygen supplementation as needed -- Will order for other supportive therapy (eg, anti-tussive, decongestant) 3. PAD: -- On warfarin -- PT/INR is pending Prophylaxis: DVT- enoxaparin Code Status: Full Code [facility] 2023-05-02 01:57:53 [facility] Hospitalist Admission H&P Date of Service: 05/02/2023 CHIEF COMPLAINT: Acute respiratory distress HISTORY OF PRESENT ILLNESS Darwin Del Valle is a 63 year old male who presents with acute respiratory distress. Patient has been coughing for the last week and he developed severe shortness of breath. Patient was recently seen in the hospital prior to [place] with similar complaints. in the emergency room, patient had extensive workup, and patient's white blood cell count was 23,000. Patient had a left shift. Patient's chest x-ray was unremarkable. Patient's CT scan shows severe emphysema with bronchial wall thickening with peribronchial nodules. In the emergency room, patient was given nebs, steroids, and antibiotics. Patient states he is feeling much better. Patient feels like he is back to his baseline. Patient does have a wound to the right foot for which she is doing wound care at the house. He uses Santyl for the wound care. This can be continued as an outpatient. At this time, patient be admitted for observation for acute respiratory distress. Patient does have a leukocytosis which is a little worrisome but could be related to his steroid use as he left the hospital with a tapering dose of steroids. Will repeat the labs in the morning and see where his white count is. If his clinical symptoms continue to improve I anticipate he may be able to go home in the morning and can get labs done as an outpatient to monitor his white blood cell count. Patient has had severe peripheral arterial disease and had a stent placed about a month ago. PAST MEDICAL HISTORY Past Medical History: Diagnosis Date COPD (chronic obstructive pulmonary disease) Tobacco consumption Peripheral arterial disease Right foot wound PAST SURGICAL HISTORY Past Surgical History: Procedure Laterality Date ANGIOGRAM VIA LOWER EXTREMITY ACCESS (SHX) Right 07/22/2021 Surgeon: Fuentes Cabrera MD; Location: [facility] OR LOCATION FEMORAL ENDARTERECTOMY Right 04/03/2023 Surgeon: Gilbert Rodríguez MD; Location: [facility] OR LOCATION HERNIA REPAIR TOE AMPUTATION Right 07/26/2021 Surgeon: Onel Segundo DPM; Location: [facility] OR LOCATION TOE AMPUTATION Right 5th digit Rt foot Stent placement on the right leg about a month ago ALLERGIES Allergies Allergen Reactions Codeine Nausea and/or Vomiting and Unknown - See comments MEDICATIONS Current home medication list reviewed: Patient's Medications START taking these medications No medications on file CONTINUE taking these medications which have NOT CHANGED ALBUTEROL-IPRATROPIUM (COMBIVENT RESPIMAT) 20-100 MCG/ACTUATION INHALER Inhale 1 Puff 4 (four) times daily. BUDESONIDE-FORMOTEROL 160-4.5 MCG/ACTUATION INHALER Inhale 2 Puffs in the morning and 2 Puffs in the evening. NICOTINE 14 MG/24 HR PATCH Apply 1 Patch to area(s) every 24 (twenty-four) hours. TAMSULOSIN 0.4 MG 24 HR CAPSULE Take 1 capsule by mouth in the morning. WARFARIN 2.5 MG TABLET Take 1 tablet by mouth every evening. START taking Modified Medications as Prescribed No medications on file STOP taking these medications No medications on file FAMILY HISTORY Family History Problem Relation Age of Onset Cancer Mother Heart Mother Cancer Father SOCIAL HISTORY Social History Socioeconomic History Marital status: Number of children: 3 Highest education level: 3rd grade Occupational History Occupation: diabled Tobacco Use Smoking status: Former Packs/day: 0.50 Years: 50.00 Additional pack years: 0.00 Total pack years: 25.00 Types: Cigarettes Quit date: 06/17/2019 Years since quittin.8 Passive exposure: Current Smokeless tobacco: Never Vaping Use Vaping Use: Never used Substance and Sexual Activity Alcohol use: Yes Comment: social Drug use: Never Social History Narrative Lives at home alone Social Determinants of Health Financial Resource Strain: Low Risk (04/19/2023) Overall Financial Resource Strain (CARDIA) Difficulty of Paying Living Expenses: Not hard at all Food Insecurity: No Food Insecurity (04/19/2023) Hunger Vital Sign Worried About Running Out of Food in the Last Year: Never true Ran Out of Food in the Last Year: Never true Transportation Needs: No Transportation Needs (04/19/2023) PRAPARE - Transportation Lack of Transportation (Medical): No Lack of Transportation (Non-Medical): No Physical Activity: Inactive (04/19/2023) Exercise Vital Sign Days of Exercise per Week: 0 days Minutes of Exercise per Session: 0 min Social Connections: Unknown (04/19/2023) Social Connection and Isolation Panel [NHANES] Frequency of Communication with Friends and Family: More than three times a week Marital Status: Housing Stability: Low Risk (04/19/2023) Housing Stability Vital Sign Unable to Pay for Housing in the Last Year: No Number of Places Lived in the Last Year: 1 Unstable Housing in the Last Year: No REVIEW OF SYSTEMS 10 systems negative except per HPI PHYSICAL EXAMINATION BP 112/64 | Pulse 114 | Temp 37.2 ?C (99 ?F) (Oral) | Resp 21 | Ht 1.829 m (6') | Wt 62.6 kg (138 lb) | SpO2 98% | BMI 18.72 kg/m? General: No acute distress HEENT: Normal oral mucosa, anicteric sclerae, NCAT Cardiovascular: RRR Lungs: End expiratory wheezing Abdomen: Soft, NTND Musculoskeletal: No synovitis, normal muscle mass Genitourinary: Normal Skin: No rash, no skin lesions Extremities: No clubbing, no cyanosis, no lower extremity edema; patient with dressing on the right foot; brownish eschar on the right foot Neuro: AAOx3, no focal deficits Psych: Normal affect LABS - reviewed pertinent labs as below: CBC BMP PT/INR WBC (10*3/?L) Date Value 05/01/2023 23.40 (H) NA (mmol/L) Date Value 05/01/2023 134 (L) No results found for: "PT" RBC (10*6/?L) Date Value 05/01/2023 4.78 K (mmol/L) Date Value 05/01/2023 4.3 INR (no units) Date Value 04/23/2023 2.0 PLT (10*3/?L) Date Value 05/01/2023 351 (H) CALCIUM (mg/dL) Date Value 05/01/2023 9.4 HGB (g/dL) Date Value 05/01/2023 14.6 CL (mmol/L) Date Value 05/01/2023 98 aPTT HCT (%) Date Value 05/01/2023 44.0 BUN (mg/dL) Date Value 05/01/2023 9 APTT Patient (Seconds) Date Value 04/03/2023 99 (H) CREATININE (mg/dL) Date Value 05/01/2023 0.73 IMAGING - reviewed, pertinent results as below: Hospital Encounter on 05/01/23 CT CHEST PULMONARY ANGIOGRAM Narrative ORDERING PHYSICIAN: CED GUY CLINICAL HISTORY: Pulmonary embolism. TECHNIQUE: CT angiography of the chest performed with intravenous contrast. Sagittal and coronal 3-D MIP images were reconstructed. Exam was performed with radiation as low as reasonably achievable (ALARA) principles. COMPARISON: CT 11/28/2022. FINDINGS: No evidence of acute pulmonary embolism. Normal size of heart. Normal size of thoracic aorta. Normal central airways. Moderate to severe emphysematous changes throughout the lungs, greater at the upper lobes than the lower lobes. Mild diffuse bronchial wall thickening diffusely throughout both lungs. There are several scattered peribronchial nodules suspicious for mild infectious or inflammatory process. Largest nodules are 1.0 cm in the left lower lobe image 192 series 11 and 0.7 cm in the left lower lobe image 154. Normal esophagus. No enlarged mediastinal, hilar or axillary lymph nodes. Partially imaged upper abdomen is unremarkable. No acute abnormality of bones or superficial soft tissues. Impression 1. No evidence of pulmonary embolism or aortic dissection. 2. Moderate to severe emphysema. 3. Diffuse bronchial wall thickening throughout lungs bilaterally and several scattered peribronchial lung nodules suspicious for infectious/inflammatory process. Largest nodule is 1.0 cm in the left lower lobe. Elective follow-up CT recommended in 3-6 months. RL: 6600 AFC: 81193 End of report. CHEST 1 VW Narrative ORDERING PHYSICIAN: CED GUY HISTORY: dyspnea COMPARISON: 04/19/2023 FINDINGS: A single frontal view of the chest. Heart is normal in size. There is no pulmonary edema. There are no focal areas of consolidation. There is no pneumothorax. There are no pleural effusions. Old left-sided rib fractures once again seen. Osseous structures are unremarkable. Please note that chest radiography is not a sensitive modality for the detection of masses. Impression No radiographic evidence of acute cardiopulmonary process. RL: 135 SSMENT: 1. Patient with acute COPD exacerbation with secondary bronchitis 2. Patient with peripheral arterial disease with wound to the right foot 3. Patient with tobacco abuse 4. Leukocytosis PLAN: 1. Patient with acute COPD exacerbation with acute bronchitis; patient was given nebs, steroids, and antibiotics. Patient clinically doing much better. Patient is currently on room air oxygen and is doing well. If patient continues to improve then anticipate he should be able to go home in the morning. Patient does have a leukocytosis and will continue to monitor patient's white blood cell count as an outpatient. 2. Patient with a history of peripheral arterial disease status post femoral endarterectomy; patient with a wound to the lateral aspect of the right foot. Patient on Santyl and will continue this while in the hospital. Patient also on warfarin. Patient had been on Xarelto but was unable to afford it so this was switched to warfarin. 3. GI DVT prophylaxis DVT prophylaxis: Warfarin Stress ulcer prophylaxis: pantoprazole Code status: FULL Advanced Care Planning (Z71.89) Above assessment and plan discussed at length with patient, patient expressed full understanding. Questions and concerned addressed. 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 Patient was recently discharged from [facility] after being treated for a acute COPD exacerbation. Patient also had a right heel wound that was being healed status post femoral endarterectomy. Patient states that he was doing well at discharge but once he got home he has been noticing that has been getting more more short of breath. He wears home oxygen at 2 L/min. However, he states that he had turned it up and he still was not feeling any better. He decided to come into the emergency room for further evaluation. In the emergency room patient had labs which showed a white blood cell count of 21,000. Patient's chest x-ray showed worsening interstitial opacities bilaterally which is more suggestive of pulmonary edema versus infectious process. However, in the setting of patient's elevated white blood cell count we will treat will aggressively with antibiotics. Patient may need antibiotic regimen for healthcare acquired pneumonia if not responding to initial antibiotic coverage. However, he is currently looking fairly comfortable. Emergency room started him on Rocephin and Zithromax. Will continue patient on rocephin and add doxycycline at this time. Patient is currently on Coumadin for a femoral endarterectomy so will need to cautious on antibiotic selection. Will also get wound care to see the patient. And will need to get him arranged for home health with wound care and PT. Patient will be admitted to the hospital for further treatment. PAST MEDICAL HISTORY Past Medical History: Diagnosis Date COPD (chronic obstructive pulmonary disease) Tobacco consumption PAST SURGICAL HISTORY Past Surgical History: Procedure Laterality Date ANGIOGRAM VIA LOWER EXTREMITY ACCESS (SHX) Right 07/22/2021 Surgeon: Fuentes Cabrera MD; Location: [facility] OR LOCATION FEMORAL ENDARTERECTOMY Right 04/03/2023 Surgeon: Gilbert Rodríguez MD; Location: [facility] OR LOCATION HERNIA REPAIR TOE AMPUTATION Right 07/26/2021 Surgeon: Onel Segundo DPM; Location: [facility] OR LOCATION TOE AMPUTATION Right 5th digit Rt foot ALLERGIES Allergies Allergen Reactions Codeine Nausea and/or Vomiting and Unknown - See comments MEDICATIONS Current home medication list reviewed: Current Discharge Medication List STOP taking these medications nicotine 14 mg/24 hr patch Comments: Reason for Stopping: warfarin 5 mg tablet Comments: Reason for Stopping: warfarin 5 mg tablet Comments: Reason for Stopping: FAMILY HISTORY Family History Problem Relation Age of Onset Cancer Mother Heart Mother Cancer Father SOCIAL HISTORY Social History Socioeconomic History Marital status: Number of children: 3 Highest education level: 3rd grade Occupational History Occupation: diabled Tobacco Use Smoking status: Former Packs/day: 0.50 Years: 50.00 Additional pack years: 0.00 Total pack years: 25.00 Types: Cigarettes Quit date: 06/17/2019 Years since quittin.8 Passive exposure: Current Smokeless tobacco: Never Vaping Use Vaping Use: Never used Substance and Sexual Activity Alcohol use: Yes Comment: social Drug use: Never Social History Narrative Lives at home alone Social Determinants of Health Financial Resource Strain: Low Risk (04/13/2023) Overall Financial Resource Strain (CARDIA) Difficulty of Paying Living Expenses: Not hard at all Food Insecurity: No Food Insecurity (04/13/2023) Hunger Vital Sign Worried About Running Out of Food in the Last Year: Never true Ran Out of Food in the Last Year: Never true Transportation Needs: No Transportation Needs (04/13/2023) PRAPARE - Transportation Lack of Transportation (Medical): No Lack of Transportation (Non-Medical): No Physical Activity: Inactive (04/13/2023) Exercise Vital Sign Days of Exercise per Week: 0 days Minutes of Exercise per Session: 0 min Social Connections: Unknown (04/13/2023) Social Connection and Isolation Panel [NHANES] Frequency of Communication with Friends and Family: More than three times a week Marital Status: Housing Stability: Low Risk (04/13/2023) Housing Stability Vital Sign Unable to Pay for Housing in the Last Year: No Number of Places Lived in the Last Year: 1 Unstable Housing in the Last Year: No REVIEW OF SYSTEMS 10 systems negative except per HPI PHYSICAL EXAMINATION BP 103/54 | Pulse 89 | Temp 36.6 ?C (97.8 ?F) | Resp 18 | Ht 1.829 m (6') | Wt 63.5 kg (139 lb 14.4 oz) | SpO2 97% | BMI 18.97 kg/m? General: No acute distress HEENT: Normal oral mucosa, anicteric sclerae, NCAT Cardiovascular: RRR with systolic ejection murmur 2 out of 6 Lungs: End expiratory wheezing Abdomen: Soft, NTND Musculoskeletal: No synovitis, normal muscle mass Genitourinary: Normal Skin: Wound on the right heel; psoriatic plaques Extremities: No clubbing, no cyanosis, no lower extremity edema Neuro: AAOx3, no focal deficits Psych: Normal affect LABS - reviewed pertinent labs as below: CBC BMP PT/INR WBC (10*3/?L) Date Value 04/19/2023 21.01 (H) NA (mmol/L) Date Value 04/19/2023 135 No results found for: "PT" RBC (10*6/?L) Date Value 04/19/2023 4.67 K (mmol/L) Date Value 04/19/2023 4.0 INR (no units) Date Value 04/19/2023 1.7 PLT (10*3/?L) Date Value 04/19/2023 572 (H) CALCIUM (mg/dL) Date Value 04/19/2023 9.4 HGB (g/dL) Date Value 04/19/2023 14.4 CL (mmol/L) Date Value 04/19/2023 98 aPTT HCT (%) Date Value 04/19/2023 44.2 BUN (mg/dL) Date Value 04/19/2023 14 APTT Patient (Seconds) Date Value 04/03/2023 99 (H) CREATININE (mg/dL) Date Value 04/19/2023 0.73 IMAGING - reviewed, pertinent results as below: Hospital Encounter on 04/19/23 XR CHEST 1 VW Narrative ORDERING PHYSICIAN: ANDIE JOSE CLINICAL HISTORY: Shortness of breath TECHNIQUE: Frontal view of chest COMPARISON: 04/12/2023 FINDINGS: The cardiac silhouette is within normal limits. There are mildly increased interstitial pulmonary opacities bilaterally, possibly representing interstitial edema versus bilateral atypical interstitial pneumonia. There are no effusions. Osseous structures are normal. Impression There are mildly increased interstitial pulmonary opacities bilaterally, possibly representing interstitial edema versus bilateral atypical interstitial pneumonia. There are no effusions. RL: 5252 SSMENT: 1. Interstitial pneumonia with secondary acute COPD exacerbation; acute on chronic respiratory failure 2. Status post femoral endarterectomy with wound to the right heel 3. Elevated ALT/AST 4. History of hypertension 5. History of dyslipidemia 6. History of psoriasis PLAN: 1. Continue with IV antibiotic therapy for patient's pneumonia. Continue with nebs, steroids, and antibiotics. Patient BNP was normal. There is concern for interstitial edema; however, recent echocardiogram with normal ejection fraction. Mild pulmonary hypertension. 2. Status post femoral endarterectomy with wound to the right heel; continue with wound care; also continue with warfarin which was switched over from Xarelto at [facility]. Continue monitoring INR. 3. Hypertension/dyslipidemia; continue with home medications-patient has none listed; will try to get with pharmacy 4. History of psoriasis; will need referral to dermatology for further outpatient evaluation. 5. Elevated ALT/AST; continue to follow serially-unknown etiology 6. GI DVT prophylaxis DVT prophylaxis: Warfarin Stress ulcer prophylaxis: pantoprazole Code status: FULL Advanced Care Planning (Z71.89) Above assessment and plan discussed at length with patient, patient expressed full understanding. Questions and concerned addressed. Surrogate decision maker: NONE Level of care expected after discharge: HOME WITH HOME HEALTH Time spent: 3 minutes discussing the advanced care plan Smoking Cessation: (Z71.6) Tobacco user?: QUIT Patient will require inpatient stay of 2 midnights or more given high risk of morbidity and mortality. 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 Medicine History & Physical Date of Service: 12/25/2022 Pt presents from: Home CC: SOB / Wheezing History of Present Illness: Darwin Del Valle is a 62 year old male with past md hx of COPD and active smoker that presents to the ED for shortness of breath with wheezing. Patient was discharged November 15, 2022 for COPD exacerbation. Since then he has not been compliant with all medications due to cost is also been smoking. States he smokes half pack daily at this point. Over the past 3 days he has had worsening shortness of breath with productive cough when he swallows sputum. Due to worsening shortness of breath patient decided come to the ED for evaluation. In the emergency department patient desatted to 87% on room air during 6-minute walk test. Was placed on oxygen with improvement. Blood pressure noted to be soft. Initial labs include VBG showing 7.3 3/50/60. Initial labs show no leukocytosis. He was noted to have an elevated D-dimer and did receive a CTA in the ED which showed no pulmonary embolus. CT did show bronchitis along with moderate to confluent central lobar emphysema along with apical 6 mm solid nodule. Hospitalist call for admission. On my exam patient is still wheezing from doorway. Complaining of shortness of breath improved on oxygen. ROS: Pt denies F / N / V / D / Constipation / CP / Abd pain / dysuria / hematuria / melena / hematochezia / rashes / suicidal or homicidal ideation / All others negative Review of Hx/Meds: PMH: Past Medical History: Diagnosis Date COPD (chronic obstructive pulmonary disease) Tobacco consumption PSH: has a past surgical history that includes hernia repair; toe amputation (Right, 07/26/2021); angiogram via lower extremity access (shx) (Right, 07/22/2021); and toe amputation (Right). Family Hx: Noncontributory unless mentioned above Social History Tobacco Use Smoking status: Former Packs/day: 0.50 Years: 50.00 Additional pack years: 0.00 Total pack years: 25.00 Types: Cigarettes Quit date: 06/17/2019 Years since quittin.5 Passive exposure: Current Smokeless tobacco: Never Vaping Use Vaping Use: Never used Substance Use Topics Alcohol use: Yes Comment: social Drug use: Never Current Scheduled Medications Current IV Current Facility-Administered Medications: acetaminophen (TYLENOL) tablet 650 mg, 650 mg, Oral, Q6HPRN, Florian Nguyen DO albuterol (PROVENTIL) 2.5 mg /3 mL (0.083 %) nebulizer solution 2.5 mg, 2.5 mg, Inhalation, Q4HPRN, Florian Nguyen DO, 2.5 mg at 12/25/22 1703 azithromycin (ZITHROMAX) 500 mg in NaCl 0.9% (NS) 250 mL VIAL-MATE IV piggyback, 500 mg, IV Piggyback, Q24H ABX, Florian Nguyen DO, Stopped at 12/25/22 1631 enoxaparin (LOVENOX) injection 40 mg, 40 mg, Subcutaneous, DAILY, Florian Nguyen DO, 40 mg at 12/25/22 1651 guaiFENesin 100 mg/5 mL solution 200 mg, 200 mg, Oral, Q4HPRN, Florian Nguyen DO ipratropium-albuteroL (DUONEB) 0.5 mg-3 mg(2.5 mg base)/3 mL nebulizer solution 3 mL, 3 mL, Inhalation, Q4H, Florian Nguyen DO, 3 mL at 12/25/22 1453 [START ON 12/26/2022] predniSONE (DELTASONE) tablet 40 mg, 40 mg, Oral, DAILY, Florian Nguyen DO Objective: Vitals: Vitals: 12/25/22 1551 12/25/22 1600 12/25/22 1703 12/25/22 1714 BP: 111/63 Pulse: 98 Resp: Temp: 36.3 ?C (97.3 ?F) TempSrc: SpO2: 96% 96% 98% Weight: 70.5 kg (155 lb 6.4 oz) Height: 1.829 m (6') I/O's: Intake/Output Summary (Last 24 hours) at 12/25/2022 1903 Last data filed at 12/25/2022 1859 Gross per 24 hour Intake 653.48 ml Output 500 ml Net 153.48 ml Physical Exam: General: NAD, Alert, lying in bed comfortable, cogent speech. HEENT: anicteric, oral mucosa dry Neck: supple, no JVD, no bruits. Chest: Bilateral wheezing Heart: RRR, S1/S2, no M/G/R Abdominal: BS normoactive, soft, ND, NT. Skin/Extremities: no rash, no cyanosis, warm and dry, no LE edema. Neurological: CN II-XII grossly intact, no focal deficits. Labs: BMP:BMP NA (mmol/L) Date Value 12/25/2022 138 11/28/2022 137 11/15/2022 139 11/14/2022 137 11/13/2022 135 K (mmol/L) Date Value 12/25/2022 4.1 11/28/2022 3.9 11/15/2022 3.7 11/14/2022 4.2 11/13/2022 4.2 CALCIUM (mg/dL) Date Value 12/25/2022 9.0 11/28/2022 8.8 11/15/2022 8.5 (L) 11/14/2022 8.4 (L) 11/13/2022 8.5 (L) CL (mmol/L) Date Value 12/25/2022 104 11/28/2022 100 11/15/2022 105 11/14/2022 105 11/13/2022 100 BUN (mg/dL) Date Value 12/25/2022 5 (L) 11/28/2022 3 (L) 11/15/2022 15 11/14/2022 12 11/13/2022 6 (L) CREATININE (mg/dL) Date Value 12/25/2022 0.79 11/28/2022 0.82 11/15/2022 0.63 11/14/2022 0.56 (L) 11/13/2022 0.79 GLUCOSE (mg/dL) Date Value 12/25/2022 96 11/28/2022 107 11/15/2022 142 (H) 11/14/2022 145 (H) 11/13/2022 127 (H) CO2 TOTAL (mmol/L) Date Value 12/25/2022 31 11/28/2022 32 (H) 11/15/2022 31 11/14/2022 29 11/13/2022 27 CBC:CBC WBC (10*3/?L) Date Value 12/25/2022 6.89 RBC (10*6/?L) Date Value 12/25/2022 4.84 PLT (10*3/?L) Date Value 12/25/2022 309 HGB (g/dL) Date Value 12/25/2022 14.7 HCT (%) Date Value 12/25/2022 44.3 BMP:Hepatic Function Panel ALBUMIN (g/dL) Date Value 12/25/2022 3.8 T PROTEIN (g/dL) Date Value 12/25/2022 6.4 TOTAL BILI (mg/dL) Date Value 12/25/2022 0.5 BILI UNCON (mg/dL) Date Value 08/08/2019 0.4 BILI CONJ (mg/dL) Date Value 08/08/2019 0.0 ALT(SGPT) (U/L) Date Value 10/03/2018 34 ALTv (U/L) Date Value 12/25/2022 14 AST(SGOT) (U/L) Date Value 12/25/2022 20 ALK PHOS (U/L) Date Value 12/25/2022 70 Troponin: Recent Labs 12/25/22 0814 TROPNI 0.005 I have reviewed all relevant labs Imaging: CT CHEST PULMONARY ANGIOGRAM Result Date: 12/25/2022 PROCEDURE: CT CHEST WITH CONTRAST- CHEST PE PROTOCOL CLINICAL INDICATION: 62 years-old Male; Provided history: PE suspected, intermediate prob, positive D-dimer Additional history from the chart: No additional history available at the time of dictation. Comparison: Chest CT 11/28/2022 and 08/20/2022 TECHNIQUE: Volumetric helical CT angiogram was performed of the chest (lung apices to bases) with IV contrast. Images were reconstructed at 1.25 mm slice thickness. Axial MIPs and coronal and sagittal MPR images were generated and reviewed. FINDINGS: HEART AND GREAT VESSELS: The opacification of the pulmonary vasculature is appropriate. No filling defects are seen through the level of the segmental pulmonary arteries. The pulmonary trunk is normal in caliber The thoracic aorta is normal in caliber. The coronary arteries are unremarkable. The heart is normal in size The RV to LV ratio is normal. No pericardial abnormalities are identified. MEDIASTINUM AND LOWER NECK: No central airway lesions are detected. The esophagus is within normal limits. The included thyroid gland appears normal. LYMPH NODES: No evidence of intrathoracic lymphadenopathy is seen. LUNGS AND PLEURA: The lungs are hyperexpanded. There is moderate to confluent upper lung zone predominant centrilobular and mild paraseptal emphysematous change. Bronchial wall thickening, scattered tree-in-bud nodules and mucous plugging. Couple subsolid and nodules are present in the right upper and lower lobes measuring up to 5 mm. A small calcified granuloma in the right lower lobe. Mild mosaic attenuation in the lung bases, unchanged and can be sequela of air trapping. 6 mm right apical nodule (11:37). No pleural abnormality is detected. VISUALIZED UPPER ABDOMEN: A 1 cm right hepatic lobe cyst, unchanged. OSSEOUS STRUCTURES AND SOFT TISSUES: Chronic left sixth and seventh rib fractures. The soft tissues appear normal. 1. No pulmonary embolism. AIDOC (computer aided detection software) confirms no filling defects within the pulmonary arteries. 2. Bronchial wall thickening and a couple of tree-in-bud nodules, possibility trapping to suggest bronchitis and small airway disease of infectious/inflammatory process, unchanged. Background of moderate to confluent centrilobular emphysema. 3. Since 08/20/2022, stable right apical 6 mm solid nodule. Per Fleischner Society recommendation, follow-up in 6-12 months (from 08/20/2022) and if stable at 18-24 months is suggested. Preliminary Report Dictated by Resident: Alex Sanchez I, Na Valle MD., have reviewed this study and agree with the above report. XR CHEST 1 VW Result Date: 12/25/2022 EXAM: XR CHEST 1 VW COMPARISON: X-ray 11/13/2022 HISTORY: SOB FINDINGS: The lung are mildly hyperexpanded. No focal opacities. No pleural abnormalities are detected. The cardiac silhouette appears normal accounting for technique. No focal osseous lesions or acute osseous findings are detected. No radiographic evidence of acute cardiopulmonary process. Preliminary Report Dictated by Resident: Alex Sanchez I, Yasemin Portillo MD., have reviewed this study and agree with the above report. CT CHEST PULMONARY ANGIOGRAM Result Date: 11/28/2022 Ordering physician: CED GUY Indication: Chest pain, dyspnea, history of COPD Comparison: Chest radiograph dated 11/13/2022, chest CT dated 08/20/2022 Technique: CTA of the chest was performed following the administration of intravenous contrast material. Three-dimensional reformats were generated following completion of the exam. CT scan was performed according to ALARA (as low as reasonably achievable) policy. Findings: The visualized thyroid gland is within normal limits. There is no thoracic aortic aneurysm or dissection. The heart is normal in size without significant pericardial effusion. No filling defect is appreciated in the pulmonary arteries to the level of the distal segmental arteries. No pathologically enlarged mediastinal or hilar lymph nodes are identified. No acute process is identified in the upper abdomen. No acute pulmonary process is identified. There is moderate centrilobular emphysema, predominantly in the lung apices. There is a 6 mm pulmonary nodule in the right upper lobe (series 10, image 58). There is thickening of the bronchial walter in the lower lobes bilaterally. There are multiple pulmonary nodules in the right lower lobe, measuring up to 5 mm (series 10, image 193). Bone windows through the chest demonstrate no osseous destructive lesion. Impression: No CTA evidence for pulmonary embolus. Thickening of the bronchial walter in the bilateral lower lobes, possibly reflecting infectious or inflammatory bronchitis. Moderate centrilobular emphysema. Multiple small pulmonary nodules in the right lung measuring up to 6 mm. The 6 mm pulmonary nodule in the right upper lobe is stable compared to the previous exam. Smaller pulmonary nodules in the right lower lobe are new compared to the prior study, and may be infectious/inflammatory. Follow-up recommendations are based upon the 2017 Fleischner Chest Society which are based upon the nodule size and patient risk factor for cancer. For multiple nodules 6-8 mm in size, follow-up is based upon the patient risk factor: A) Low-Risk Patient: Given stability at 4 months, consider CT at 18-24 months from 08/20/2022 B) High-Risk Patient: Given stability in 4 months, CT at 18-24 months from 08/20/2022 RL: [id number] AFC: [id number] Assessment and plan: Principal Problem: Acute hypoxemic respiratory failure Acute hypoxemic respiratory failure: Secondary to COPD exacerbation - Counseled to quit smoking - Continue oxygen wean as tolerated - Continue steroids - Continue nebs - Continue azithromycin Active smoker: - Counseled to quit - Nicotine patch offered and refused Pulmonary nodule: - Follow-up outpatient with pulmonary DVT prophylaxis: Lovenox Advanced Care Planning ( Z71.89 ) Above assessment and plan discussed at length with patient, patient expressed full understanding. Questions and concerns addressed I spent 1 minutes discussing the advance care planning. Advanced Directive Maker: PT Level of comfort: N/A Code Status: Full Tobacco user (Z71.6): Yes Patient counseled at length and Pt expressed full understanding, Time discussed 3 minutes [place] [employer]PER[employer] was verified Disposition: Admit for acute hypoxemic respiratory failure and started on treatment for COPD exacerbation. Signed: Florian Nguyen DO 12/25/2022 [facility] 2022-11-13 04:02:30 Formatting of this n ote is different from the original. [facility] ADMIT H&P Date of Service: 11/13/2022 CHIEF [...] Date ANGIOGRAM VIA LOWER EXTREMITY ACCESS (SHX) Right 07/22/2021 Surgeon: Fuentes Cabrera MD; Location: [facility] OR LOCATION HERNIA REPAIR TOE AMPUTATION Right 07/26/2021 Surgeon: Onel Segundo DPM; Location: [facility] OR LOCATION TOE AMPUTATION Right 5th digit Rt foot Family History Problem Relation Age of Onset Cancer Mother Heart Mother Cancer Father ALLERGIES Allergies Allergen Reactions Codeine Nausea and/or Vomiting and Unknown - See comments MEDICATIONS No current facility-administered medications on file prior to encounter. Current Outpatient Medications on File Prior to Encounter Medication Sig Dispense Refill albuterol 2.5 mg /3 mL (0.083 %) nebulizer solution Inhale 3 mL every 2 (two) hours as needed for Shortness of Breath or Wheezing. 3 mL 2 ipratropium-albuteroL 0.5 mg-3 mg(2.5 mg base)/3 mL nebulizer solution USE 1 VIAL IN NEBULIZER EVERY 4 HOURS NEEDED FOR WHEEZING OR SHORTNESS OF BREATH 540 mL 2 Fluticasone-Salmeterol (ADVAIR DISKUS) 100-50 mcg/dose inhalation disk Inhale 1 Puff every 12 (twelve) hours. 60 Each 5 guaiFENesin 100 mg/5 mL solution Take 10 mL by mouth every 4 [...] Running Out of Food in the Last Year: Never true Ran Out of Food in the Last Year: Never true Transportation Needs: No Transportation Needs (10/16/2022) PRAPARE - Transportation Lack of Transportation (Medical): [...] HENT: Negative. Eyes: Negative. Respiratory: Positive for cough (productive), chest tightness, shortness of breath and wheezing. Negative for apnea, choking and stridor. Breasts: Negative. Cardiovascular: Negative. Gastrointestinal: Negative. Genitourinary: Negative. Musculoskeletal: Negative. Skin: Negative. Neurological: Positive for dizziness. Negative for tremors, seizures, syncope, facial asymmetry, speech difficulty, weakness, light-headedness, numbness and headaches. Psychiatric/Behavioral: Negative. Endocrine: Endocrine negative PHYSICAL EXAMINATION Vitals: 11/13/22 0200 11/13/22 0300 11/13/22 0319 11/13/22 0321 BP: 109/72 113/73 Pulse: 93 90 94 Resp: 18 24 26 Temp: 36.4 ?C (97.5 ?F) SpO2: 99% 91% 91% Weight: 67.5 kg (148 lb 12.8 oz) Height: 1.829 m (6') Physical Exam Vitals and nursing note reviewed. Constitutional: General: He is not in acute distress. Appearance: Normal appearance. He is not ill-appearing, toxic-appearing or diaphoretic. HENT: Head: Normocephalic and atraumatic. Right Ear: External ear normal. Left Ear: External ear normal. Nose: Nose normal. No congestion. Mouth/Throat: Mouth: Mucous membranes are moist. Pharynx: No oropharyngeal exudate or posterior oropharyngeal erythema. Eyes: General: No scleral icterus. Extraocular Movements: Extraocular movements intact. Conjunctiva/sclera: Conjunctivae normal. Pupils: Pupils are equal, round, and reactive to light. Cardiovascular: Rate and Rhythm: Normal rate and regular rhythm. Heart sounds: No murmur heard. No friction rub. No gallop. Pulmonary: Effort: Pulmonary effort is normal. No respiratory distress. Breath sounds: Wheezing present. No rales. Comments: +coarse breath sounds Chest: Chest wall: No tenderness. Abdominal: General: Abdomen is flat. Bowel sounds are normal. There is no distension. Palpations: Abdomen is soft. Tenderness: There is no abdominal tenderness. There is no guarding. Musculoskeletal: General: Normal range [...] reviewed, pertinent results as below: ORDERING CLINICIAN: WILI CHAUHAN TECHNIQUE: Single view of the chest STUDY QUALITY: Adequate INDICATION: COPD COMPARISON: 10/22/2022 DISCUSSION: The lungs are clear. The cardiac silhouette is within normal limits. The airway is midline. The mediastinal contour is normal. There are emphysematous changes. There is a stable remote fracture of the posterior left seventh rib. IMPRESSION 1. No acute cardiopulmonary disease. 2. COPD/emphysema ASSESSMENT/PLAN Darwin Del Valle is a 62 year old male with PMH as listed [...] Code Status: addressed: FC Estimated LOS: This inpatient admission will likely require greater than or equal to 2 Midnights. Management is not feasible as an outpatient and there is concern for adverse outcomes if not managed in an inpatient setting. Advance care planning discussed for 17 mins with patient at bedside. Surrogate decision maker: Wili Del Valle (sibling) - T [facility] Notes Date/Time Note Provider Source 2024-08-25 14:37:02 in ED gave inhaler, routing to Dr. Shen for refill approval. Becka Doshi MA [facility] 2024-08-25 14:32:20 Pt is calling again. Please assist, thank you. Mounika Mcdonough [facility] 2024-08-25 10:59:06 Darwin Del Valle is a 64 year old male Pt is calling and is asking if he can have a refill on RX ipratropium-albuteroL 0.5 mg-3 mg(2.5 mg base)/3 mL nebulizer solution . Pt states that he spoke with the pharmacy and the pharmacy told him a new order needed to be placed. Pt is completely out. Please advise. RX ipratropium-albuteroL 0.5 mg-3 mg(2.5 mg base)/[address] [facility]/pharmacy #[id number] [place] [id number] [facility] 2024-07-27 10:03:56 Problem: Discharge Planning Goal: Adequate for discharge Outcome: Adequate for discharge Problem: Discharge Planning Goal: Effective communication Outcome: Adequate for discharge Problem: Infection, Risk of or Actual Goal: Absence of infection Outcome: Adequate for discharge Problem: Nutrition Deficit Goal: Adequate nutritional intake Outcome: Adequate for discharge Problem: Pain Goal: Control of pain at or below patient's documented comfort goal Outcome: Adequate for discharge Problem: Pain Goal: Reduction in pain sensation Outcome: Adequate for discharge Problem: Respiratory Function - Impaired Goal: Able to cough effectively Outcome: Adequate for discharge Problem: Respiratory Function - Impaired Goal: Adequate oxygenation Outcome: Adequate for discharge Problem: Respiratory Function - Impaired Goal: Adequate work of breathing Outcome: Adequate for discharge Problem: Respiratory Function - Impaired Goal: Patent airway Outcome: Adequate for discharge Problem: Skin integrity Impaired (Risk or Actual) Goal: Wound healing Outcome: Adequate for discharge Problem: Skin integrity Impaired (Risk or Actual) Goal: Prevention of new skin breakdown Outcome: Adequate for discharge Problem: Tissue Perfusion - Altered, Risk of Goal: Hemodynamically stable Outcome: Adequate for discharge Problem: Falls, Risk of Goal: Absence of falls Outcome: Adequate for discharge [facility] 2024-[facility]27 08:18:57 Problem: Discharge Planning Goal: Adequate for discharge Outcome: Progressing as expected Goal: Effective communication Outcome: Progressing as expected Problem: Infection, Risk of or Actual Goal: Absence of infection Outcome: Progressing as expected Problem: Nutrition Deficit Goal: Adequate nutritional intake Outcome: Progressing as expected Problem: Pain Goal: Control of pain at or below patient's documented comfort goal Outcome: Progressing as expected Goal: Reduction in pain sensation Outcome: Progressing as expected Problem: Respiratory Function - Impaired Goal: Able to cough effectively Outcome: Progressing as expected Goal: Adequate oxygenation Outcome: Progressing as expected Goal: Adequate work of breathing Outcome: Progressing as expected Goal: Patent airway Outcome: Progressing as expected Problem: Skin integrity Impaired (Risk or Actual) Goal: Wound healing Outcome: Progressing as expected Goal: Prevention of new skin breakdown Outcome: Progressing as expected Problem: Tissue Perfusion - Altered, Risk of Goal: Hemodynamically stable Outcome: Progressing as expected Problem: Falls, Risk of Goal: Absence of falls Outcome: Progressing as expected [employer] 2024-07-26 20:16:52 Problem: Discharge Planning Goal: Adequate for discharge Outcome: Progressing as expected Goal: Effective communication Outcome: Progressing as expected Problem: Infection, Risk of or Actual Goal: Absence of infection Outcome: Progressing as expected Problem: Nutrition Deficit Goal: Adequate nutritional intake Outcome: Progressing as expected Problem: Pain Goal: Control of pain at or below patient's documented comfort goal Outcome: Progressing as expected Goal: Reduction in pain sensation Outcome: Progressing as expected Problem: Respiratory Function - Impaired Goal: Able to cough effectively Outcome: Progressing as expected Goal: Adequate oxygenation Outcome: Progressing as expected Goal: Adequate work of breathing Outcome: Progressing as expected Goal: Patent airway Outcome: Progressing as expected Problem: Skin integrity Impaired (Risk or Actual) Goal: Wound healing Outcome: Progressing as expected Goal: Prevention of new skin breakdown Outcome: Progressing as expected Problem: Tissue Perfusion - Altered, Risk of Goal: Hemodynamically stable Outcome: Progressing as expected Problem: Falls, Risk of Goal: Absence of falls Outcome: Progressing as expected Ilsa De La Cruz RN [facility] 2024-07-26 10:47:59 Problem: Discharge Planning Goal: Adequate for discharge Outcome: Progressing as expected Goal: Effective communication Outcome: Progressing as expected Problem: Infection, Risk of or Actual Goal: Absence of infection Outcome: Progressing as expected Problem: Nutrition Deficit Goal: Adequate nutritional intake Outcome: Progressing as expected Problem: Pain Goal: Control of pain at or below patient's documented comfort goal Outcome: Progressing as expected Goal: Reduction in pain sensation Outcome: Progressing as expected Problem: Respiratory Function - Impaired Goal: Able to cough effectively Outcome: Progressing as expected Goal: Adequate oxygenation Outcome: Progressing as expected Goal: Adequate work of breathing Outcome: Progressing as expected Goal: Patent airway Outcome: Progressing as expected Problem: Skin integrity Impaired (Risk or Actual) Goal: Wound healing Outcome: Progressing as expected Goal: Prevention of new skin breakdown Outcome: Progressing as expected Problem: Tissue Perfusion - Altered, Risk of Goal: Hemodynamically stable Outcome: Progressing as expected Problem: Falls, Risk of Goal: Absence of falls Outcome: Progressing as expected [facility] 2024-07-26 05:09:20 Problem: Discharge Planning Goal: Adequate for discharge Outcome: Progressing as expected Goal: Effective communication Outcome: Progressing as expected Problem: Infection, Risk of or Actual Goal: Absence of infection Outcome: Progressing as expected Problem: Nutrition Deficit Goal: Adequate nutritional intake Outcome: Progressing as expected Problem: Pain Goal: Control of pain at or below patient's documented comfort goal Outcome: Progressing as expected Goal: Reduction in pain sensation Outcome: Progressing as expected Problem: Respiratory Function - Impaired Goal: Able to cough effectively Outcome: Progressing as expected Goal: Adequate oxygenation Outcome: Progressing as expected Goal: Adequate work of breathing Outcome: Progressing as expected Goal: Patent airway Outcome: Progressing as expected Problem: Skin integrity Impaired (Risk or Actual) Goal: Wound healing Outcome: Progressing as expected Goal: Prevention of new skin breakdown Outcome: Progressing as expected Problem: Tissue Perfusion - Altered, Risk of Goal: Hemodynamically stable Outcome: Progressing as expected Problem: Falls, Risk of Goal: Absence of falls Outcome: Progressing as expected [facility] 2024-07-25 17:01:11 Problem: Discharge Planning Goal: Adequate for discharge Outcome: Progressing as expected Goal: Effective communication Outcome: Progressing as expected Problem: Infection, Risk of or Actual Goal: Absence of infection Outcome: Progressing as expected Problem: Nutrition Deficit Goal: Adequate nutritional intake Outcome: Progressing as expected Problem: Pain Goal: Control of pain at or below patient's documented comfort goal Outcome: Progressing as expected Goal: Reduction in pain sensation Outcome: Progressing as expected Problem: Respiratory Function - Impaired Goal: Able to cough effectively Outcome: Progressing as expected Goal: Adequate oxygenation Outcome: Progressing as expected Goal: Adequate work of breathing Outcome: Progressing as expected Goal: Patent airway Outcome: Progressing as expected Problem: Skin integrity Impaired (Risk or Actual) Goal: Wound healing Outcome: Progressing as expected Goal: Prevention of new skin breakdown Outcome: Progressing as expected Problem: Falls, Risk of Goal: Absence of falls Outcome: Progressing as expected Problem: Tissue Perfusion - Altered, Risk of Goal: Hemodynamically stable Outcome: Progressing as expected Mary Jackson RN [facility] 2024-07-25 03:16:17 Problem: Discharge Planning Goal: Adequate for discharge Outcome: Progressing as expected Goal: Effective communication Outcome: Progressing as expected Problem: Infection, Risk of or Actual Goal: Absence of infection Outcome: Progressing as expected Problem: Nutrition Deficit Goal: Adequate nutritional intake Outcome: Progressing as expected Problem: Pain Goal: Control of pain at or below patient's documented comfort goal Outcome: Progressing as expected Goal: Reduction in pain sensation Outcome: Progressing as expected Problem: Nutrition Deficit Goal: Adequate nutritional intake Outcome: Progressing as expected Problem: Pain Goal: Control of pain at or below patient's documented comfort goal Outcome: Progressing as expected Goal: Reduction in pain sensation Outcome: Progressing as expected Problem: Respiratory Function - Impaired Goal: Able to cough effectively Outcome: Progressing as expected Goal: Adequate oxygenation Outcome: Progressing as expected Goal: Adequate work of breathing Outcome: Progressing as expected Goal: Patent airway Outcome: Progressing as expected Problem: Skin integrity Impaired (Risk or Actual) Goal: Wound healing Outcome: Progressing as expected Goal: Prevention of new skin breakdown Outcome: Progressing as expected Problem: Tissue Perfusion - Altered, Risk of Goal: Hemodynamically stable Outcome: Progressing as expected Problem: Falls, Risk of Goal: Absence of falls Outcome: Progressing as expected [employer] 2024-07-24 10:33:49 Problem: Discharge Planning Goal: Adequate for discharge Outcome: Progressing as expected Goal: Effective communication Outcome: Progressing as expected Problem: Infection, Risk of or Actual Goal: Absence of infection Outcome: Progressing as expected Problem: Nutrition Deficit Goal: Adequate nutritional intake Outcome: Progressing as expected Problem: Pain Goal: Control of pain at or below patient's documented comfort goal Outcome: Progressing as expected Goal: Reduction in pain sensation Outcome: Progressing as expected Problem: Respiratory Function - Impaired Goal: Able to cough effectively Outcome: Progressing as expected Goal: Adequate oxygenation Outcome: Progressing as expected Goal: Adequate work of breathing Outcome: Progressing as expected Goal: Patent airway Outcome: Progressing as expected Problem: Skin integrity Impaired (Risk or Actual) Goal: Wound healing Outcome: Progressing as expected Goal: Prevention of new skin breakdown Outcome: Progressing as expected Problem: Tissue Perfusion - Altered, Risk of Goal: Hemodynamically stable Outcome: Progressing as expected Problem: Falls, Risk of Goal: Absence of falls Outcome: Progressing as expected [facility] 2024-07-24 02:42:58 Problem: Discharge Planning Goal: Adequate for discharge Outcome: Progressing as expected Goal: Effective communication Outcome: Progressing as expected Problem: Infection, Risk of or Actual Goal: Absence of infection Outcome: Progressing as expected Problem: Nutrition Deficit Goal: Adequate nutritional intake Outcome: Progressing as expected Problem: Pain Goal: Control of pain at or below patient's documented comfort goal Outcome: Progressing as expected Goal: Reduction in pain sensation Outcome: Progressing as expected Problem: Respiratory Function - Impaired Goal: Able to cough effectively Outcome: Progressing as expected Goal: Adequate oxygenation Outcome: Progressing as expected Goal: Adequate work of breathing Outcome: Progressing as expected Goal: Patent airway Outcome: Progressing as expected Problem: Skin integrity Impaired (Risk or Actual) Goal: Wound healing Outcome: Progressing as expected Goal: Prevention of new skin breakdown Outcome: Progressing as expected Problem: Tissue Perfusion - Altered, Risk of Goal: Hemodynamically stable Outcome: Progressing as expected Problem: Falls, Risk of Goal: Absence of falls Outcome: Progressing as expected [facility] 2024-07-23 18:46:26 Problem: Discharge Planning Goal: Adequate for discharge Outcome: Progressing as expected Problem: Infection, Risk of or Actual Goal: Absence of infection Outcome: Progressing as expected Problem: Nutrition Deficit Goal: Adequate nutritional intake Outcome: Progressing as expected Problem: Pain Goal: Control of pain at or below patient's documented comfort goal Outcome: Progressing as expected Goal: Reduction in pain sensation Outcome: Progressing as expected Problem: Respiratory Function - Impaired Goal: Able to cough effectively Outcome: Progressing as expected Goal: Adequate oxygenation Outcome: Progressing as expected Goal: Adequate work of breathing Outcome: Progressing as expected Goal: Patent airway Outcome: Progressing as expected Problem: Skin integrity Impaired (Risk or Actual) Goal: Wound healing Outcome: Progressing as expected Goal: Prevention of new skin breakdown Outcome: Progressing as expected Problem: Tissue Perfusion - Altered, Risk of Goal: Hemodynamically stable Outcome: Progressing as expected Problem: Falls, Risk of Goal: Absence of falls Outcome: Progressing as expected [facility] 2024-07-23 17:36:10 Images from the original note were not included. Pharmacy Recommendations for Patient Admission: No recommendations. The CUSTOMER ORDERS CLERK medication list has been updated and reflected in the chart below. Please use the CUSTOMER ORDERS CLERK Med List for ordering home doses during admission. Patient Adherence: Adherent to all medications. Source(s) used in interview: Patient and Outpatient Pharmacy Interview limitations: None Medications Added Medications Removed Medications Modified none Alprazolam 0.5mg Benzonatate 100mg Clopidogrel 75mg Ipratropium 0.5mg nebulizer Prednisone 20mg Pramipexole 0.125mg take at night when needed from nightly Allergies as of 07/21/2024 - Reviewed 07/21/2024 Allergen Reaction Noted Codeine Nausea and/or Vomiting and Unknown - See comments 05/18/2015 Protamine Other - See comments 07/23/2023 Pharmacy Updated CUSTOMER ORDERS CLERK Med List Medication Sig midodrine 10 mg tablet Take 1 tablet by mouth in the morning and 1 tablet at noon and 1 tablet in the evening. Do all this for 30 days. pramipexole 0.125 mg tablet Take 1 tablet by mouth at bedtime as needed for Other (restless legs). Outpatient Pharmacy Contact Information: [facility]/pharmacy #[id number] - [place], [place] - [id number] [address] [facility] - [address] [place] [id number] Thank you for the opportunity to participate in the care of this patient. Pallavi Guadalupe RPH 5:34 PM, 07/23/2024 [facility] Department of Pharmacy - [facility] Phone: ADC: [phone] Pallavi Guadalupe RPH [facility] 2024-07-23 13:50:00 Patient assisted out bed to bedside commode. He became very anxious and started having a panic attack. His O2 sat dropped to the 70s. NRB facemask placed with improvement noted in SATs to the 90's. Dr Nguyen notified and request made for antianxiety medication order. Flory Song RN [facility] 2024-07-23 13:23:59 Encouraged patient to get out bed and sit up in the chair. Patient refused. He stated he just can't do it and it was too cold. Offered to adjust the room temp and assist the patient to get out of bed but he continued to refuse. [facility] 2024-07-23 04:01:45 Patient educated on the purpose use of a nasal canula being required to be in his nose not his mouth. Patient refusing to wear nasal canula in mouth stated,"it works better in his mouth and he has being dealing with this for ten years he knows how it works best. Patient has no signs of respiratory distress noncompliant to nasal canula use and placement. Juan Solis RN [facility] 2024-07-23 00:44:55 Problem: Discharge Planning Goal: Adequate for discharge Outcome: Progressing as expected Goal: Effective communication Outcome: Progressing as expected Problem: Infection, Risk of or Actual Goal: Absence of infection Outcome: Progressing as expected Problem: Nutrition Deficit Goal: Adequate nutritional intake Outcome: Progressing as expected Problem: Pain Goal: Control of pain at or below patient's documented comfort goal Outcome: Progressing as expected Goal: Reduction in pain sensation Outcome: Progressing as expected Problem: Respiratory Function - Impaired Goal: Able to cough effectively Outcome: Progressing as expected Goal: Adequate oxygenation Outcome: Progressing as expected Goal: Adequate work of breathing Outcome: Progressing as expected Goal: Patent airway Outcome: Progressing as expected Problem: Skin integrity Impaired (Risk or Actual) Goal: Wound healing Outcome: Progressing as expected Goal: Prevention of new skin breakdown Outcome: Progressing as expected Problem: Tissue Perfusion - Altered, Risk of Goal: Hemodynamically stable Outcome: Progressing as expected Problem: Falls, Risk of Goal: Absence of falls Outcome: Progressing as expected [facility] 2024-07-22 11:08:22 Problem: Discharge Planning Goal: Adequate for discharge 07/22/2024 1106 by Cheryle Hsieh RN Outcome: Progressing as expected 07/22/2024 1102 by Cheryle Hsieh RN Outcome: Progressing as expected Goal: Effective communication 07/22/2024 1106 by Cheryle Hsieh RN Outcome: Progressing as expected 07/22/2024 110 by Cheryle Hsieh RN Outcome: Progressing as expected Problem: Infection, Risk of or Actual Goal: Absence of infection 07/22/2024 1106 by Cheryle Hsieh RN Outcome: Progressing as expected 07/22/2024 1102 by Cheryle Hsieh RN Outcome: Progressing as expected Problem: Nutrition Deficit Goal: Adequate nutritional intake 07/22/2024 1106 by Cheryle Hsieh RN Outcome: Progressing as expected 07/22/2024 1102 by Cheryle Hsieh RN Outcome: Progressing as expected Problem: Respiratory Function - Impaired Goal: Able to cough effectively 07/22/2024 1106 by Cheryle Hsieh RN Outcome: Progressing as expected 07/22/2024 1102 by Cheryle Hsieh RN Outcome: Progressing as expected Goal: Adequate oxygenation 07/22/2024 1106 by Cheryle Hsieh RN Outcome: Progressing as expected 07/22/2024 1102 by Cheryle Hsieh RN Outcome: Progressing as expected Goal: Adequate work of breathing 07/22/2024 1106 by Cheryle Hsieh RN Outcome: Progressing as expected 07/22/2024 1102 by Cheryle Hsieh RN Outcome: Progressing as expected Goal: Patent airway 07/22/2024 1106 by Cheryle Hsieh, ALMA Outcome: Progressing as expected 07/22/2024 1102 by Cheryle Hsieh RN Outcome: Progressing as expected Problem: Skin integrity Impaired (Risk or Actual) Goal: Wound healing 07/22/2024 1106 by Cheryle Hsieh RN Outcome: Progressing as expected 07/22/2024 1102 by Cheryle Hsieh RN Outcome: Progressing as expected Goal: Prevention of new skin breakdown 07/22/2024 1106 by Cheryle Hsieh RN Outcome: Progressing as expected 07/22/2024 1102 by Cheryle Hsieh RN Outcome: Progressing as expected Problem: Tissue Perfusion - Altered, Risk of Goal: Hemodynamically stable 07/22/2024 1106 by Cheryle Hsieh RN Outcome: Progressing as expected 07/22/2024 1102 by Cheryle Hsieh RN Outcome: Progressing as expected Problem: Falls, Risk of Goal: Absence of falls 07/22/2024 110 by Cheryle Hsieh RN Outcome: Progressing as expected 07/22/2024 1102 by Cheryle Hsieh RN Outcome: Progressing as expected IKA Hsieh RN [facility] Transfer To 2024-07-22 11:04:17 Problem: Discharge Planning Goal: Adequate for discharge Outcome: Progressing as expected Goal: Effective communication Outcome: Progressing as expected Problem: Infection, Risk of or Actual Goal: Absence of infection Outcome: Progressing as expected Problem: Nutrition Deficit Goal: Adequate nutritional intake Outcome: Progressing as expected Problem: Pain Goal: Control of pain at or below patient's documented comfort goal Outcome: Progressing as expected Goal: Reduction in pain sensation Outcome: Progressing as expected Problem: Respiratory Function - Impaired Goal: Able to cough effectively Outcome: Progressing as expected Goal: Adequate oxygenation Outcome: Progressing as expected Goal: Adequate work of breathing Outcome: Progressing as expected Goal: Patent airway Outcome: Progressing as expected Problem: Skin integrity Impaired (Risk or Actual) Goal: Wound healing Outcome: Progressing as expected Goal: Prevention of new skin breakdown Outcome: Progressing as expected Problem: Tissue Perfusion - Altered, Risk of Goal: Hemodynamically stable Outcome: Progressing as expected Problem: Falls, Risk of Goal: Absence of falls Outcome: Progressing as expected [facility] 2024-07-22 04:41:30 Problem: Discharge Planning Goal: Adequate for discharge Outcome: Progressing as expected Goal: Effective communication Outcome: Progressing as expected Problem: Infection, Risk of or Actual Goal: Absence of infection Outcome: Progressing as expected Problem: Nutrition Deficit Goal: Adequate nutritional intake Outcome: Progressing as expected Problem: Pain Goal: Control of pain at or below patient's documented comfort goal Outcome: Progressing as expected Goal: Reduction in pain sensation Outcome: Progressing as expected Problem: Respiratory Function - Impaired Goal: Able to cough effectively Outcome: Progressing as expected Goal: Adequate oxygenation Outcome: Progressing as expected Goal: Adequate work of breathing Outcome: Progressing as expected Goal: Patent airway Outcome: Progressing as expected Problem: Skin integrity Impaired (Risk or Actual) Goal: Wound healing Outcome: Progressing as expected Goal: Prevention of new skin breakdown Outcome: Progressing as expected Problem: Tissue Perfusion - Altered, Risk of Goal: Hemodynamically stable Outcome: Progressing as expected Problem: Falls, Risk of Goal: Absence of falls Outcome: Progressing as expected T Tona Hernández RN [facility] 2024-07-21 19:05:29 Nurse to nurse patient care report given to Tona MARQUEZ for 2113 T Coral Chahal RN [facility] 2024-07-21 18:48:58 Bipap placed on standby. Pt is requesting a break. Per Dr Guy pt can have a break. [facility] 2024-07-21 16:08:[address] with this RN & RT tech T [facility] 2024-07-21 15:25:13 Pt arrived to ED via POV with COPD exacerbation starting today. Staff got pt from the truck in , pt was on 5L NC in his mouth reporting that he couldn't breathe. WOB increased. O2 saturation 96% on 5L NC. Denies CP, fever, or chills. Priscilla Eldridge RN [facility] - [facility] 2024-07-21 15:22:00 [facility] Emergency Department Note Patient Name: Darwin Del Valle Date of : 1960 64 year old male Treatment Room: 9/[facility] Primary Care Physician: Betty Schmitz Patient Escorted by: Self [9] Mode of Arrival: Personal means [1] EMS Treatment Prior to ED Arrival: CUSTOMER ORDERS CLERK treatment: None Travel and Exposure Screening: Symptoms Does patient have any of these symptoms?: (not recorded) Exposure Screening Has patient had contact with someone with a communicable disease in the last month?: (not recorded) Diseases exposed to:: (not recorded) Is Patient ?: (not recorded) Exposure Date: (not recorded) Chief Complaint: Chief Complaint Patient presents with Shortness of Breath COPD History of Present Illness: PT presents with worsening shortness of breath that began today. PT was recently admitted from 07/08-07/13 for resp distress. PT states today it got worse. PT states he wears 3 L NC normally. Past Medical History/Immunizations: Past Medical History: Diagnosis Date Arteriosclerosis COPD (chronic obstructive pulmonary disease) Tobacco consumption Tetanus received in last 5 years: Unknown Allergies: Allergies Allergen Reactions Codeine Nausea and/or Vomiting and Unknown - See comments Protamine Other - See comments Hypotension and bradycardia Past Social History: Tobacco Use Every Day; Cigarettes: Started 06/17/1969; Last attempted to quit 06/17/2019; Smoked an average of 0.5 packs/day for 50.0 years Passive Exposure: Current Smokeless Tobacco: Never used smokeless tobacco. Comments: Patient states he "smokes every once in awhile" Vaping Use Never used Alcohol Use Not Currently. Comments: social Drug Use Never. Past Surgical History: Past Surgical History: Procedure Laterality Date ANGIOGRAM VIA LOWER EXTREMITY ACCESS (SHX) Right 07/22/2021 Surgeon: Fuentes Cabrera MD; Location: [facility] OR LOCATION ANGIOPLASTY Right 07/23/2023 Surgeon: Gilbert Rodríguez MD; Location: [facility] OR LOCATION ARTERIOGRAM Right 07/23/2023 Surgeon: Gilbert Rodríguez MD; Location: [facility] OR LOCATION CHOLECYSTECTOMY LAPAROSCOPY WITH CHOLANGIOGRAM (SHX) N/A 05/16/2023 Surgeon: Sabrina Villareal MD; Location: [facility] OR LOCATION FEMORAL ENDARTERECTOMY Right 04/03/2023 Surgeon: Gilbert Rodríguez MD; Location[facility] OR LOCATION HERNIA REPAIR TOE AMPUTATION Right 07/26/2021 Surgeon: Onel Segundo DPM; Location: [facility] OR LOCATION TOE AMPUTATION Right 5th digit Rt foot VASCULAR STENTING Right 07/23/2023 Surgeon: Gilbert Rodríguez MD; Location: [facility] OR LOCATION Review of Systems: Review of Systems Constitutional: Negative for fever. Respiratory: Positive for cough, chest tightness and shortness of breath. Physical Exam: ED Triage Vitals [07/21/24 1523] Weight 61.7 kg (136 lb) Actual or estimated Estimated by patient/family report Height 1.829 m (6') BP 137/79 Pulse 102 Resp 16 Temp 36.7 ?C (98 ?F) Temp source Oral SpO2 96 % Measured on Room air Physical Exam Vitals and nursing note reviewed. Constitutional: General: He is in acute distress. Appearance: Normal appearance. HENT: Head: Normocephalic. Eyes: Extraocular Movements: Extraocular movements intact. Cardiovascular: Rate and Rhythm: Tachycardia present. Pulmonary: Effort: Respiratory distress present. Comments: Increase work of breathing, decreased breath sounds bilaterally Neurological: General: No focal deficit present. Mental Status: He is alert and oriented to person, place, and time. Psychiatric: Mood and Affect: Mood normal. Behavior: Behavior normal. Thought Content: Thought content normal. Radiology: XR Chest 1 vw Final Result EXAM: XR CHEST 1 VW 07/21/2024 4:20 PM HISTORY: 64 years-old Male with eval for pneumonia . TECHNIQUE: Portable AP view of the chest. COMPARISON: 07/08/2024 FINDINGS: Lines and tubes: None. Cardiomediastinal: The cardiomediastinal silhouette is unremarkable. Lungs and pleura: The lungs are hyperinflated. Emphysematous change again noted. Interstitial and reticulonodular opacities with peribronchial thickening, most pronounced at the right infrahilar lung are similar to previous exam. Blunting of the costophrenic angles is unchanged and may be trace pleural thickening. Included osseous structures show no acute abnormality. IMPRESSION Similar appearance of COPD and ongoing/chronic endobronchial infection or bronchiolitis. CT Chest pulmonary angiogram Final Result EXAM: CT CHEST PULMONARY ANGIOGRAM HISTORY: eval for PE COMPARISON: Chest CT from March 03, 2024 TECHNIQUE: A chest CT was obtained from the thoracic inlet to the base of the lungs during pulmonary arterial phase per CT PE protocol after uncomplicated administration of 80 mL of Omnipaque IV contrast. FINDINGS: No hypodense filling defects are seen within the pulmonary trunk, main pulmonary arteries, or segmental branches. Thickening of the right bronchus intermedius with luminal narrowing. There is soft tissue within the right lower and middle lobe segmental and subsegmental bronchi suggesting because plugging. Peribronchovascular, peripherally predominant nodular opacities in the right lower and middle lobes, increased from previous exam is a right middle lobe. There is associated bronchiectasis. Diffuse background emphysematous changes. Biapical scarring. No evidence of pleural effusion or pneumothorax is noted. The thyroid gland, trachea, and main bronchi are unremarkable. The heart is normal in size with no pericardial effusion present. The great vessels are unremarkable. The limited evaluation of the visualized upper abdomen appears normal. Right hilar 1.3 cm lymph node, likely reactive. Subcarinal lymph node is unchanged also likely reactive. No destructive osseous lesion. Remote left posterior seventh rib fracture. IMPRESSION 1. Interval increase in right bronchus intermedius thickening and mucous plugging in the right middle and lower lobes , with increasing nodular/reticulonodular opacities in the right middle lobe, concerning for infectious/inflammatory process. Preliminary Report Dictated by Resident: Ewa Munoz MD., have reviewed this study and agree with the above report. Lab Results: Lab Results CBC WITH DIFF - Abnormal Result Value Ref Range WBC 15.55 (*) 4.20 - 10.70 10*3/?L RBC 4.59 4.26 - 5.52 10*6/?L HGB 14.4 12.2 - 16.4 g/dL HCT 45.1 38.4 - 49.3 % MCV 98.3 (*) 81.7 - 95.6 fL MCH 31.4 26.1 - 32.7 pg MCHC 31.9 31.2 - 35.0 g/dL RDW-SD 50.5 38.5 - 51.6 fL RDW-CV 14.0 12.1 - 15.4 % PLT 466 (*) 150 - 328 10*3/?L MPV 10.0 9.8 - 13.0 fL NRBC/100 WBC 0.0 0.0 - 10.0 /100 WBCs NRBC x10 3 <0.01 10*3/?L GRAN MAT (NEUT) % 76.1 % IMM GRAN % 0.60 % LYMPH % 12.2 % MONO % 6.2 % EOS % 4.6 % BASO % 0.3 % GRAN MAT x10 3 (ANC) 11.85 (*) 1.99 - 6.95 10*3/uL IMM GRAN x10 3 0.09 (*) 0.00 - 0.06 10*3/uL LYMPH x10 3 1.89 1.09 - 3.23 10*3/uL MONO x10 3 0.96 0.36 - 1.02 10*3/uL EOS x10 3 0.71 (*) 0.06 - 0.53 10*3/uL BASO x10 3 0.05 0.01 - 0.09 10*3/uL COMP. METABOLIC PANEL (59967) - Abnormal NA 142 135 - 145 mmol/L K 4.5 3.5 - 5.0 mmol/L CL 103 98 - 108 mmol/L CO2 TOTAL 35 (*) 23 - 31 mmol/L AGAP 4 2 - 16 BUN 12 7 - 23 mg/dL GLUCOSE 114 (*) 70 - 110 mg/dL CREATININE 0.66 0.60 - 1.25 mg/dL TOTAL BILI 0.7 0.1 - 1.1 mg/dL CALCIUM 9.7 8.6 - 10.6 mg/dL T PROTEIN 7.1 6.3 - 8.2 g/dL ALBUMIN 4.2 3.5 - 5.0 g/dL ALK PHOS 116 34 - 122 U/L ALTv 21 5 - 50 U/L AST(SGOT) 37 13 - 40 U/L eGFR 105.4 mL/min/1.73m2 AC ABG + LACTIC ACID - Abnormal PH 7.37 7.35 - 7.45 PCO2 56 (*) 35 - 45 mmHg PO2 140 (*) 80 - 100 mmHg HCO3 32 (*) 22 - 26 mEq/L BE 4.9 (*) -3.0 - 3.0 mEq/L LACTIC ACID 0.85 0.50 - 2.20 mmol/L TROPONIN I - Normal TROPONIN I 0.007 <=0.034 ng/mL N-TERMINAL PRO-BNP - Normal NT-proBNP 68 <=125 pg/mL BLOOD CULTURE SCREEN BLOOD CULTURE SCREEN INFLUENZA A/B RSV COVID NAAT EKG: If EKG completed, see Procedure Note. Orders and Treatments: Orders Placed This Encounter Procedures CT Chest pulmonary angiogram XR Chest 1 vw Cbc with Diff Comp. Metabolic Panel (69510) Troponin I N-Terminal Pro-Bnp AC ABG + LACTIC ACID Lactic Acid Whole Blood BLOOD CULTURE SCREEN BLOOD CULTURE SCREEN Influenza A B RSV COVID NAAT BI-PAP Orders Placed This Encounter Medications aspirin tablet 325 mg ipratropium-albuteroL (DUONEB) 0.5 mg-3 mg(2.5 mg base)/3 mL nebulizer solution 3 mL methylPREDNISolone sod succ (SOLU-MEDROL (PF)) injection 125 mg DISCONTD: LORazepam (ATIVAN) tablet 1 mg LORazepam (ATIVAN) injection 1 mg iopamidol (ISOVUE 370-500 mL) injection 80 mL piperacillin-tazobactam (ZOSYN) 3.375 g in NaCl 0.9% (NS) 100 mL MINI-BAG vancomycin (VANCOCIN) 1,000 mg in NaCl 0.9% (NS) 250 mL VIAL-MATE IV piggyback levoFLOXacin in D5W (LEVAQUIN) 750 mg/150 mL Piggyback 750 mg NaCl 0.9% (NS) bolus infusion 1,000 mL First Provider Eval: ED Events Date/Time Event User Comments 07/21/24 152 Medical Screening Begins CED GUY MD -- 07/21/24 152 First Provider Evaluation CED GUY MD -- ED COURSE ED Course as of 07/21/24 1750 SunJul 21, 2024 1529 Will obtain labs, EKG, cxr, ct chest. PT to receive duoneb, asa, steroids, ativan.will start on bipap. [PB] ED Course User Index [PB] Ced Guy MD Diagnosis/Impression as of 07/21/24 1750 Shortness of breath Procedures: Procedures MDM: Medical Decision Making 64 yo M presents with dyspnea Amount and/or Complexity of Data Reviewed Labs: ordered. Details: Wbc 15.55, trop wnl, bnp wnl Radiology: ordered. Details: Ct chest: XR Chest 1 vw Final Result EXAM: XR CHEST 1 VW 07/21/2024 4:20 PM HISTORY: 64 years-old Male with eval for pneumonia . TECHNIQUE: Portable AP view of the chest. COMPARISON: 07/08/2024 FINDINGS: Lines and tubes: None. Cardiomediastinal: The cardiomediastinal silhouette is unremarkable. Lungs and pleura: The lungs are hyperinflated. Emphysematous change again noted. Interstitial and reticulonodular opacities with peribronchial thickening, most pronounced at the right infrahilar lung are similar to previous exam. Blunting of the costophrenic angles is unchanged and may be trace pleural thickening. Included osseous structures show no acute abnormality. IMPRESSION Similar appearance of COPD and ongoing/chronic endobronchial infection or bronchiolitis. CT Chest pulmonary angiogram Final Result EXAM: CT CHEST PULMONARY ANGIOGRAM HISTORY: eval for PE COMPARISON: Chest CT from March 03, 2024 TECHNIQUE: A chest CT was obtained from the thoracic inlet to the base of the lungs during pulmonary arterial phase per CT PE protocol after uncomplicated administration of 80 mL of Omnipaque IV contrast. FINDINGS: No hypodense filling defects are seen within the pulmonary trunk, main pulmonary arteries, or segmental branches. Thickening of the right bronchus intermedius with luminal narrowing. There is soft tissue within the right lower and middle lobe segmental and subsegmental bronchi suggesting because plugging. Peribronchovascular, peripherally predominant nodular opacities in the right lower and middle lobes, increased from previous exam is a right middle lobe. There is associated bronchiectasis. Diffuse background emphysematous changes. Biapical scarring. No evidence of pleural effusion or pneumothorax is noted. The thyroid gland, trachea, and main bronchi are unremarkable. The heart is normal in size with no pericardial effusion present. The great vessels are unremarkable. The limited evaluation of the visualized upper abdomen appears normal. Right hilar 1.3 cm lymph node, likely reactive. Subcarinal lymph node is unchanged also likely reactive. No destructive osseous lesion. Remote left posterior seventh rib fracture. IMPRESSION 1. Interval increase in right bronchus intermedius thickening and mucous plugging in the right middle and lower lobes , with increasing nodular/reticulonodular opacities in the right middle lobe, concerning for infectious/inflammatory process. Preliminary Report Dictated by Resident: Hope Gurrola I, Ewa Coello MD., have reviewed this study and agree with the above report. ECG/medicine tests: ordered and independent interpretation performed. Details: NSR, incomplete RBBB, no stemi, qtc 452 HR 85 Discussion of management or test interpretation with external provider(s): DR. Nguyen to admit pt to ICU Risk OTC drugs. Prescription drug management. Parenteral controlled substances. Decision regarding hospitalization. Risk Details: PT to be admitted to ICU Flowsheet Documentation: Scoring Tools: No data recorded Disposition/Condition: ED Disposition None Discharge Medications: Patient's Medications START taking these medications No medications on file CONTINUE taking these medications which have NOT CHANGED ALPRAZOLAM (XANAX) 0.5 MG TABLET Take 1 tablet by mouth in the morning and 1 tablet in the evening. ARFORMOTEROL 15 MCG/2 ML NEBULIZER SOLUTION Use 2 mL as directed in the morning and 2 mL in the evening. ATORVASTATIN 40 MG TABLET Take 1 tablet by mouth at bedtime for 30 days. BENZONATATE 100 MG CAPSULE Take 1 capsule by mouth 3 (three) times daily as needed for Cough. CLOPIDOGREL 75 MG TABLET Take 1 tablet by mouth in the morning. IPRATROPIUM-ALBUTEROL 0.5 MG-3 MG(2.5 MG BASE)/3 ML NEBULIZER SOLUTION Inhale 3 mL every 4 (four) hours as needed for Wheezing or Shortness of Breath. IPRATROPIUM-ALBUTEROL 0.5 MG-3 MG(2.5 MG BASE)/3 ML NEBULIZER SOLUTION Inhale 3 mL every 6 (six) hours as needed for Wheezing. MIDODRINE 10 MG TABLET Take 1 tablet by mouth in the morning and 1 tablet at noon and 1 tablet in the evening. Do all this for 30 days. NON-FORMULARY MEDICATION OXYGEN PRAMIPEXOLE 0.125 MG TABLET Take 1 tablet by mouth at bedtime. PREDNISONE 20 MG TABLET Take 2 tablets by mouth daily for 1 day, THEN 1 tablet daily for 4 days, THEN 0.5 tablets daily for 4 days. START taking Modified Medications as Prescribed No medications on file STOP taking these medications No medications on file Follow-up: Electronically signed by: Ced Guy MD 07/21/24 1736 Ced Guy MD 07/21/24 1751 [employer] EMERGENCY PHYSICIAN STAFF [facility] 2024-06-11 11:23:[address] Morales per Lilo Olguin, chisel mortiser operator. He stated we can go ahead and send in a short supply until he is able to see Pulm. spoke with the patient, all he keeps saying is that we are killing him. Actually he said i was killing him, I said no sir I am the messenger and he laughed and started raising his voice. I told him that i did not need to stay on the phone if he continued to talk that way. He laughed again and I reiterated that we will be sending in a short supply until he see Pulm on 06/13/24 at 1030am and hopefully they will give him meds and he wont have this problem anymore. He hung up after that. NCT PHYSICS INSTRUCTOR [facility] 2024-06-10 17:55:17 Medication is not on current medication list, may be a historical medication. Please review Pt called to check status of rx refill. He would like a call before the end of the day with a status as he uses this frequently. RX: ALBUTEROL INHALER Please Advise. [facility]/pharmacy #[id number] - [place] - [address] [facility] [facility] [facility] [id number] [facility] Ayanna Markham MA [facility] 2024-06-10 16:46:23 Pt called to check status of rx refill. He would like a call before the end of the day with a status as he uses this frequently. RX: ALBUTEROL INHALER Please Advise. [facility]/pharmacy #[id number] - [place] - [address] [facility] [place] [address] [facility] Debby Vela [facility] 2024-06-09 21:04:59 The following is what I said in my last visit: Your COPD is not adequately managed by just rescue inhaler as discussed several times- I understand you cannot afford the maintenance inhaler but at least follow up with pulmonology in case they have other options like samples. This current intervention alone is subtherapeutic and I do not feel comfortable continuing to treat you- it is outside my scope because you are very uncontrolled and your level of use of rescue inhaler speaks to that, as well as the severity of your symptoms. Today: This means- rescue inhaler alone is not controlling and is not meant to control your COPD. You needs maintenance inhaler which you have be previously prescribed, And you have been previously referred to clinical supervisor- Dr. Shen who you have not seen for a while. The referral I propose is to a clinical supervisor- they will certainly make same recommendations I have been making and your prior clinical supervisor have made. My hope is that maybe they will have and provide you with samples of what you need since you cannot afford it. [facility] 2024-06-09 14:31:28 Notified patient that referral was placed to pulmonology. Patient will be out of medication tomorrow. Can a supply be sent until he can see pulmonology? Please review and advise. [facility] 2024-05-16 14:57:21 Images from the original note were not included. Notes: 04/29/24 Last Refilled: [facility]/pharmacy #[id number] [facility] [address] [place] [address] Recent Visits Date Type Provider Dept 12/19/23 Office Visit Eric Pacheco MD [facility] 12/07/23 Office Visit Sherita Magaña PA [facility] 06/21/23 Office Visit Steven Morales MD [facility] 05/28/23 Office Visit Betty Schmitz FNP [facility] 05/07/23 Office Visit Betty Schmitz FNP [facility] 03/20/23 Office Visit Steven Morales MD [facility] 02/21/23 Office Visit Sherita Magaña PA [facility] 02/19/23 Office Visit Betty Schmitz FNP [facility] Showing recent visits within past 540 days with a meds authorizing provider and meeting all other requirements Future Appointments No visits were found meeting these conditions. Showing future appointments within next 150 days with a meds authorizing provider and meeting all other requirements Name from pharmacy: IPRAT-ALBUT 0.5-3(2.5) MG/3 ML Will file in chart as: IPRATROPIUM-ALBUTEROL 0.5 mg-3 mg(2.5 mg base)/3 mL nebulizer solution Possible duplicate: Hover to review recent actions on this medication Sig: INHALE 3 ML EVERY 4 (FOUR) HOURS NEEDED FOR WHEEZING OR SHORTNESS OF BREATH. Disp: 360 mL Refills: Not specified Start: 05/15/2024 Class: eRX For: Chronic obstructive pulmonary disease, unspecified COPD type To pharmacy: DX Code Needed . Last ordered: 2 weeks ago (04/29/2024) by Lesley Gardner MD Last refill: 04/29/2024 Rx #: [id number] Pulmonology & Allergy: Combination Products (LABA, LAMA & ICS) LABA-long acting beta-agonist, LAMA-long acting anti-muscarinic, ICS-inhaled corticosteroid [id number]/16/2024 10:05 AM Protocol Details Valid encounter within last 6 months To be filled at: [facility]/pharmacy #[id number] - [facility] [address] [place] [address] [address] [facility] Kassandra Lester MA [facility] 2024-05-16 12:50:35 Patient notified ia my chart [facility] 2024-05-16 12:23:27 Your COPD is not adequately managed by just rescue inhaler as discussed several times- I understand you cannot afford the maintenance inhaler but at least follow up with pulmonology in case they have other options like samples. This current intervention alone is subtherapeutic and I do not feel comfortable continuing to treat you- it is outside my scope because you are very uncontrolled and your level of use of rescue inhaler speaks to that, as well as the severity of your symptoms. [facility] 2024-05-16 11:18:42 Patient in office requesting refill for 540ml be resent to pharmacy. He states the 12ml's does not last him but a day or 2. Patient stated that he only has enough to last him for a couple of days and will end up in the ER if not refilled today. Please review and sign if appropriate: Last office visit: 12/19/23 Next office visit: not scheduled Requested Prescriptions Pending Prescriptions Disp Refills ipratropium-albuteroL 0.5 mg-3 mg(2.5 mg base)/3 mL nebulizer solution 540 mL 2 Sig: Inhale 3 mL every 4 (four) hours as needed for Wheezing or Shortness of Breath. Notes: The encounter diagnosis was Chronic obstructive pulmonary disease with acute exacerbation. [facility] 2024-05-16 10:05:18 Pt is returning call to speak to nurse in regards to below phone encounter. [facility] Trang Storey [facility] 2024-05-15 16:19:55 Pt is checking the status of below phone encounter. Pt is out medication. [facility] 2024-05-15 10:39:49 Darwin Del Valle is a 64 year old male Patient is calling requesting a refill on his ipratropium-albuteroL 0.5 mg-3 mg(2.5 mg base)/3 mL nebulizer solution. Patient states he needs the 540 mL a month, not the 12 mL and to sent a new prescription. Patient is out of medication and would like a call back once medication lux been sent to his pharmacy. Please advise [id number] [place] - [address] [place] [address] 274 [facility] 2024-04-29 15:36:44 Images from the original note were not included. Notes: 02/14/24 Last Ref[facility]: [id number] [place], [place] - [address] Recent Visits Date Type Provider Dept 12/19/23 Office Visit Eric Pacheco MD [facility] 12/07/23 Office Visit Sherita Magaña PA [facility] 06/21/23 Office Visit Steven Morales MD [facility] 05/28/23 Office Visit Betty Schmitz FNP [facility] 05/07/23 Office Visit Betty Schmitz FNP [facility] 03/20/23 Office Visit Steven Morales MD [facility] 02/21/23 Office Visit Sherita Magaña PA [facility] 02/19/23 Office Visit Betty Schmitz FNP [facility] Showing recent visits within past 540 days with a meds authorizing provider and meeting all other requirements Future Appointments No visits were found meeting these conditions. Showing future appointments within next 150 days with a meds authorizing provider and meeting all other requirements ipratropium-albuteroL 0.5 mg-3 mg(2.5 mg base)/3 mL nebulizer solution Sig: Inhale 3 mL every 4 (four) hours as needed for Wheezing or Shortness of Breath. Disp: 12 mL Refills: 3 Start: 04/29/2024 Class: eRX For: Chronic obstructive pulmonary disease, unspecified COPD type Last ordered: 2 months ago (02/14/2024) by AFSANEH [facility] Pulmonology & Allergy: Combination Products (LABA, LAMA & ICS) LABA-long acting beta-agonist, LAMA-long acting anti-muscarinic, ICS-inhaled corticosteroid [id number]/29/2024 10:01 AM Protocol Details Valid encounter within last 6 months To be [facility] at: [id number] [place], [place] - [address] [facility] [address] Lester MA [facility] 2024-04-29 09:57:35 Darwin Del Valle is a 64 year old male Calling in requesting refill for ipratropium-albuteroL 0.5 mg-3 mg(2.5 mg base)/3 mL nebulizer solution 540 mL Per pt pharmacy states that pt is not currently getting 540 ml. Please address and advise [phone] (home) [id number] [place], [place] - [address] [facility] [id number] [facility] 2024-03-06 10:05:58 TRANSITIONAL CARE MANAGEMENT ASSESSMENT 03/06/2024 Darwin Del Valle [id number] Darwin Del Valle is a 64 year old /White male was admitted on 03/01/24 to [facility]. He was discharged on 03/04/24 with discharge disposition of HR- Routine Discharge. Admitting Physician: Kedar Madera Discharge Diagnosis: Acute COPD exacerbation No linked episodes TCM Aez-qxoj-hg-[id number] outreach documentation: Discharge Assessment Chart Assessed: 03/06/24 TCM Outreach Completed: 03/06/24 Care Transitions Nurse MANAS made f/u call to patient post-discharge. No answer, call went to voicemail. CM left discreet message with CM's call back information. ARUNA Freeman, RN, CCRN [employer], Transitions of Care [email or web address] Future Appointments: Future Appointments Provider Department Dept Phone 04/01/2024 1:30 PM Amie Shen, DO [facility], [facility] [phone] Jones RN [facility] 2024-03-05 13:33:24 Care Transitions Nurse MANAS made f/u call to patient post-discharge. No answer, call went to voicemail. CM left discreet message with CM's call back information. CM will try again at a later time. ARUNA Freeman, RN, CCRN [employer], Transitions of Care [email or web address] 2024-03-04 15:39:53 Problem: Respiratory Function - Impaired Goal: Able to cough effectively Outcome: Adequate for discharge Goal: Adequate oxygenation Outcome: Adequate for discharge Goal: Adequate work of breathing Outcome: Adequate for discharge Problem: Falls, Risk of Goal: Absence of falls Outcome: Adequate for discharge Problem: Discharge Planning Goal: Adequate for discharge Outcome: Adequate for discharge Goal: Effective communication Outcome: Adequate for discharge Problem: Pain Goal: Control of pain at or below patient's documented comfort goal Outcome: Adequate for discharge Goal: Reduction in pain sensation Outcome: Adequate for discharge Problem: Venous Thromboembolism, (actual or risk of) Goal: Absence of venous thromboembolism (Risk) Outcome: Adequate for discharge Problem: Skin integrity Impaired (Risk or Actual) Goal: Prevention of new skin breakdown Outcome: Adequate for discharge NCT PHYSICS INSTRUCTOR Mariola Pichardo RN [facility] 2024-03-03 23:56:41 Problem: Respiratory Function - Impaired Goal: Able to cough effectively Outcome: Progressing as expected Goal: Adequate oxygenation Outcome: Progressing as expected Goal: Adequate work of breathing Outcome: Progressing as expected Problem: Discharge Planning Goal: Adequate for discharge Outcome: Progressing as expected Goal: Effective communication Outcome: Progressing as expected Problem: Venous Thromboembolism, (actual or risk of) Goal: Absence of venous thromboembolism (Risk) Outcome: Progressing as expected Problem: Pain Goal: Control of pain at or below patient's documented comfort goal Outcome: Progressing as expected Goal: Reduction in pain sensation Outcome: Progressing as expected Problem: Skin integrity Impaired (Risk or Actual) Goal: Prevention of new skin breakdown Outcome: Progressing as expected NCT PHYSICS INSTRUCTOR Sagrario Ocampo RN [facility] 2024-03-03 14:46:22 Problem: Respiratory Function - Impaired Goal: Able to cough effectively Outcome: Progressing as expected Goal: Adequate oxygenation Outcome: Progressing as expected Goal: Adequate work of breathing Outcome: Progressing as expected Problem: Falls, Risk of Goal: Absence of falls Outcome: Progressing as expected Problem: Discharge Planning Goal: Adequate for discharge Outcome: Progressing as expected Goal: Effective communication Outcome: Progressing as expected Problem: Pain Goal: Control of pain at or below patient's documented comfort goal Outcome: Progressing as expected Goal: Reduction in pain sensation Outcome: Progressing as expected Problem: Venous Thromboembolism, (actual or risk of) Goal: Absence of venous thromboembolism (Risk) Outcome: Progressing as expected Problem: Skin integrity Impaired (Risk or Actual) Goal: Prevention of new skin breakdown Outcome: Progressing as expected NCT PHYSICS INSTRUCTOR Socorro Rome RN [facility] 2024-03-03 10:42:55 Images from the original note were not included. [facility] Clinical Pharmacist Consult Consulting Service: Pharmacy Medication Reconciliation Patient: Darwin Del Valle ([id number]) is a 64 year old male currently admitted for COPD with acute exacerbation. Admit Date/Time: 03/01/2024 7:29 AM Discharge Date: No discharge date for patient encounter. Allergies/ADRs: Allergies as of 03/01/2024 - Reviewed 03/01/2024 Allergen Reaction Noted Codeine Nausea and/or Vomiting and Unknown - See comments 05/18/2015 Protamine Other - See comments 07/23/2023 The table below represents a medication reconciliation report. Inpatient orders have not been modified. Please review the inpatient orders based on the recommendations to make any necessary changes. Sources used in interview: Patient Quality of History Provided: High quality RED TEXT INDICATES NOTABLE CHANGES CUSTOMER ORDERS CLERK Meds List Medication Sig Recommend Justification Comments ALPRAZolam (XANAX) 0.5 mg tablet Take 1 tablet by mouth in the morning and 1 tablet in the evening. Hold On hold (specify duration/reason) - Patient only takes as needed. Patient is somnolent clopidogreL 75 mg tablet Take 1 tablet by mouth in the morning. Continue Therapy optimized ipratropium-albuteroL 0.5 mg-3 mg(2.5 mg base)/3 mL nebulizer solution Inhale 3 mL every 4 (four) hours as needed for Wheezing or Shortness of Breath. Continue Therapy optimized ipratropium-albuteroL 0.5 mg-3 mg(2.5 mg base)/3 mL nebulizer solution Inhale 3 mL every 4 (four) hours as needed for Wheezing or Shortness of Breath. Continue Therapy optimized NON-FORMULARY MEDICATION OXYGEN Continue Therapy optimized pramipexole 0.125 mg tablet Take 1 tablet by mouth at bedtime. Continue Therapy optimized Patient only takes as needed for restless legs Last reviewed on 03/03/2024 10:37 AM by Jaz Hicks [facility] Outpatient Pharmacy Contact Information[id number] [place], [place] - [address] [facility] [address] [facility] - [address] [place], [place] [address] [facility] [id number] Is the patient interested in [id number]? No, patient is not interested. Contact solution make up operator services? No solution make up operator needed. Jaz Hicks Bertin 10:39 AM, 03/03/2024 [facility] Department of Pharmacy - [facility] Phone: ADC: [phone] Hicks [facility] 2024-03-02 22:24:51 Problem: Respiratory Function - Impaired Goal: Able to cough effectively Outcome: Progressing as expected Goal: Adequate oxygenation Outcome: Progressing as expected Goal: Adequate work of breathing Outcome: Progressing as expected Problem: Falls, Risk of Goal: Absence of falls Outcome: Progressing as expected Problem: Discharge Planning Goal: Adequate for discharge Outcome: Progressing as expected Goal: Effective communication Outcome: Progressing as expected Problem: Pain Goal: Control of pain at or below patient's documented comfort goal Outcome: Progressing as expected Goal: Reduction in pain sensation Outcome: Progressing as expected Problem: Venous Thromboembolism, (actual or risk of) Goal: Absence of venous thromboembolism (Risk) Outcome: Progressing as expected Problem: Skin integrity Impaired (Risk or Actual) Goal: Prevention of new skin breakdown Outcome: Progressing as expected Turner RN [facility] 2024-03-02 11:07:25 Problem: Respiratory Function - Impaired Goal: Able to cough effectively Outcome: Progressing as expected Goal: Adequate oxygenation Outcome: Progressing as expected Goal: Adequate work of breathing Outcome: Progressing as expected Problem: Falls, Risk of Goal: Absence of falls Outcome: Progressing as expected Problem: Pain Goal: Control of pain at or below patient's documented comfort goal Outcome: Progressing as expected Goal: Reduction in pain sensation Outcome: Progressing as expected Problem: Venous Thromboembolism, (actual or risk of) Goal: Absence of venous thromboembolism (Risk) Outcome: Progressing as expected Problem: Skin integrity Impaired (Risk or Actual) Goal: Prevention of new skin breakdown Outcome: Progressing as expected Jacob RN [facility] 2024-03-02 04:30:08 Problem: Respiratory Function - Impaired Goal: Able to cough effectively Outcome: Progressing as expected Goal: Adequate oxygenation Outcome: Progressing as expected Goal: Adequate work of breathing Outcome: Progressing as expected Problem: Falls, Risk of Goal: Absence of falls Outcome: Progressing as expected Problem: Discharge Planning Goal: Adequate for discharge Outcome: Progressing as expected Goal: Effective communication Outcome: Progressing as expected Problem: Pain Goal: Control of pain at or below patient's documented comfort goal Outcome: Progressing as expected Goal: Reduction in pain sensation Outcome: Progressing as expected Problem: Venous Thromboembolism, (actual or risk of) Goal: Absence of venous thromboembolism (Risk) Outcome: Progressing as expected Problem: Skin integrity Impaired (Risk or Actual) Goal: Prevention of new skin breakdown Outcome: Progressing as expected Avilez RN [facility] 2024-03-01 13:41:08 Problem: Respiratory Function - Impaired Goal: Able to cough effectively Outcome: Progressing as expected Goal: Adequate oxygenation Outcome: Progressing as expected Goal: Adequate work of breathing Outcome: Progressing as expected Problem: Falls, Risk of Goal: Absence of falls Outcome: Progressing as expected Problem: Discharge Planning Goal: Adequate for discharge Outcome: Progressing as expected Goal: Effective communication Outcome: Progressing as expected Problem: Pain Goal: Control of pain at or below patient's documented comfort goal Outcome: Progressing as expected Goal: Reduction in pain sensation Outcome: Progressing as expected Problem: Venous Thromboembolism, (actual or risk of) Goal: Absence of venous thromboembolism (Risk) Outcome: Progressing as expected Problem: Skin integrity Impaired (Risk or Actual) Goal: Prevention of new skin breakdown Outcome: Progressing as expected [facility] 2024-03-01 11:46:58 Report given to Yeni MARQUEZ. [facility] 2024-03-01 07:24:23 Patient called from parking lot saying he was sob. On arrival to his car he is labored, on home oxygen. 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 Hx of COPD, feels like prior exacerbations. Still smoking tobacco. No measured fever. Drove to ER, too sob to get out of car and had to call ER to get him into the ER. No known sick contacts Past Medical History/Immunizations: Past Medical History: Diagnosis Date COPD (chronic obstructive pulmonary disease) Tobacco consumption Tetanus received in last 5 years: Unknown Allergies: Allergies Allergen Reactions Codeine Nausea and/or Vomiting and Unknown - See comments Protamine Other - See comments Hypotension and bradycardia Past Social History: Tobacco Use Every Day; Cigarettes: Started 06/17/1969; Last attempted to quit 06/17/2019; Smoked an average of 0.5 packs/day for 50.0 years Passive Exposure: Current Smokeless Tobacco: Never used smokeless tobacco. Comments: Patient states he "smokes every once in awhile" Vaping Use Never used Alcohol Use Yes. Comments: social Drug Use Never. Past Surgical History: Past Surgical History: Procedure Laterality Date ANGIOGRAM VIA LOWER EXTREMITY ACCESS (SHX) Right 07/22/2021 Surgeon: Fuentes Cabrera MD; Location: [facility] OR LOCATION ANGIOPLASTY Right 07/23/2023 Surgeon: Gilbert Rodríguez MD; Location: [facility] OR LOCATION ARTERIOGRAM Right 07/23/2023 Surgeon: Gilbert Rodríguez MD; Location: [facility] OR LOCATION CHOLECYSTECTOMY LAPAROSCOPY WITH CHOLANGIOGRAM (SHX) N/A 05/16/2023 Surgeon: Sabrina Villareal MD; Location: [facility] OR LOCATION FEMORAL ENDARTERECTOMY Right 04/03/2023 Surgeon: Gilbert Rodríguez MD; Location: [facility] OR LOCATION HERNIA REPAIR TOE AMPUTATION Right 07/26/2021 Surgeon: Onel Segundo DPM; Location: [facility] OR LOCATION TOE AMPUTATION Right 5th digit Rt foot VASCULAR STENTING Right 07/23/2023 Surgeon: Gilbert Rodríguez MD; Location: [facility] OR LOCATION Review of Systems: Review of Systems Constitutional: Positive for activity change. Negative for fever. Respiratory: Positive for cough and shortness of breath. Negative for chest tightness. Cardiovascular: Negative for chest pain and leg swelling. Gastrointestinal: Negative for abdominal pain and vomiting. Genitourinary: Negative for decreased urine volume. Physical Exam: ED Triage Vitals [03/01/24 0726] Weight 63.5 kg (140 lb) Actual or estimated Estimated by healthcare provider Height 1.829 m (6') BP 122/78 Pulse 116 Resp 24 Temp 37.3 ?C (99.2 ?F) Temp source Oral SpO2 97 % Measured on On oxygen Physical Exam Vitals and nursing note reviewed. Constitutional: General: He is in acute distress. Appearance: He is well-developed. He is ill-appearing. HENT: Head: Normocephalic and atraumatic. Right Ear: External ear normal. Left Ear: External ear normal. Eyes: General: No scleral icterus. Neck: Vascular: No JVD. Cardiovascular: Rate and Rhythm: Normal rate and regular rhythm. Pulses: Normal pulses. Pulmonary: Effort: Tachypnea, accessory muscle usage and respiratory distress present. Breath sounds: Decreased air movement present. Wheezing present. Abdominal: General: There is no distension. Palpations: Abdomen is soft. Tenderness: There is no abdominal tenderness. There is no guarding or rebound. Musculoskeletal: General: No tenderness or deformity. Normal range of motion. Cervical back: Normal range of motion and neck supple. Right lower leg: No edema. Left lower leg: No edema. Skin: General: Skin is warm and dry. Capillary Refill: Capillary refill takes less than 2 seconds. Findings: No rash. Neurological: Mental Status: He is alert. Psychiatric: Behavior: Behavior normal. Thought Content: Thought content normal. Radiology: XR CHEST 1 VW Preliminary Result EXAM: XR CHEST 1 VW COMPARISON: Chest x-ray on 12/01/2023 HISTORY: sob FINDINGS: Lungs: Persistent large lung volumes. Persistent prominence of the interstitial lung markings with peribronchial cuffing. Right basilar atelectasis. No focal consolidations. Blunting of bilateral costophrenic angles, unchanged. No pneumothorax. Heart/Mediastinum: The cardiac silhouette appears normal accounting for technique and degree of inspiration. Bones and soft tissues: Mild bilateral acromioclavicular osteoarthrosis is noted. Bony remodeling of the posterior left seventh rib is visualized. No acute osseous abnormality is visualized. IMPRESSION No acute cardiopulmonary process. Emphysematous lungs. Preliminary Report Dictated by Resident: Fahad Bolivar Lab Results: Lab Results CBC WITH DIFF - Abnormal Result Value Ref Range WBC 18.57 (*) 4.20 - 10.70 10*3/?L RBC 4.76 4.26 - 5.52 10*6/?L HGB 15.1 12.2 - 16.4 g/dL HCT 46.6 38.4 - 49.3 % MCV 97.9 (*) 81.7 - 95.6 fL MCH 31.7 26.1 - 32.7 pg MCHC 32.4 31.2 - 35.0 g/dL RDW-SD 50.1 38.5 - 51.6 fL RDW-CV 13.8 12.1 - 15.4 % PLT 414 (*) 150 - 328 10*3/?L MPV 9.1 (*) 9.8 - 13.0 fL NRBC/100 WBC 0.0 0.0 - 10.0 /100 WBCs NRBC x10 3 <0.01 10*3/?L GRAN MAT (NEUT) % 89.5 % IMM GRAN % 0.50 % LYMPH % 3.8 % MONO % 5.0 % EOS % 0.7 % BASO % 0.5 % GRAN MAT x10 3 (ANC) 16.62 (*) 1.99 - 6.95 10*3/uL IMM GRAN x10 3 0.10 (*) 0.00 - 0.06 10*3/uL LYMPH x10 3 0.70 (*) 1.09 - 3.23 10*3/uL MONO x10 3 0.93 0.36 - 1.02 10*3/uL EOS x10 3 0.13 0.06 - 0.53 10*3/uL BASO x10 3 0.09 0.01 - 0.09 10*3/uL COMP. METABOLIC PANEL (64303) - Abnormal NA 134 (*) 135 - 145 mmol/L K 4.6 3.5 - 5.0 mmol/L CL 95 (*) 98 - 108 mmol/L CO2 TOTAL 36 (*) 23 - 31 mmol/L AGAP 3 2 - 16 BUN 11 7 - 23 mg/dL GLUCOSE 123 (*) 70 - 110 mg/dL CREATININE 0.80 0.60 - 1.25 mg/dL TOTAL BILI 0.5 0.1 - 1.1 mg/dL CALCIUM 9.4 8.6 - 10.6 mg/dL T PROTEIN 7.4 6.3 - 8.2 g/dL ALBUMIN 4.3 3.5 - 5.0 g/dL ALK PHOS 142 (*) 34 - 122 U/L ALTv 11 5 - 50 U/L AST(SGOT) 16 13 - 40 U/L eGFR 99.4 mL/min/1.73m2 VBG+VCOOX+NA+K+GLU+CA2+ - Abnormal PH 7.36 7.32 - 7.42 PCO2 LARRY 59 (*) 41 - 51 mmHg PO2 LARRY 20 (*) 25 - 40 mmHg HCO3 LARRY 33 (*) 24 - 28 mEq/L AC VBE(BEAKER) 5.2 mEq/L THB LARRY 16.2 13.5 - 18.0 g/dL %O2HB LARRY 35.2 (*) 52.0 - 63.0 % %COHB LARRY 2.1 (*) 0.0 - 1.5 % %METHB LARRY 0.3 (*) 0.4 - 1.5 % VOL%O2 LARRY 8.0 6.0 - 12.0 % NA 138 135 - 145 mmol/L K+ 4.8 3.5 - 5.0 mmol/L AC CA IONZ 4.50 4.50 - 5.30 mg/dL GLUCOSE 120 (*) 70 - 110 mg/dL TROPONIN I - Normal TROPONIN I <0.012 <=0.034 ng/mL N-TERMINAL PRO-BNP - Normal NT-proBNP 71 <=125 pg/mL INFLUENZA A/B RSV COVID NAAT - Normal Influenza A NAAT Negative Negative Influenza B NAAT Negative Negative RSV by PCR Negative Negative SARS-CoV-2 NAAT Negative Negative EKG: If EKG completed, see Procedure Note. Orders and Treatments: Orders Placed This Encounter Procedures XR CHEST 1 VW Cbc with Diff Comp. Metabolic Panel (78512) Troponin I N-Terminal Pro-Bnp VBG+VCOOX+NA+K+GLU+CA2+ Influenza A B RSV COVID NAAT Lab Only COVID Interpretation O2 Per Protocol Orders Placed This Encounter Medications DISCONTD: magnesium sulfate in D5W 1 gram/100 mL RTU IV Piggyback 1 g DISCONTD: magnesium sulfate in D5W 1 gram/100 mL RTU IV Piggyback 1 g ipratropium-albuteroL (DUONEB) 0.5 mg-3 mg(2.5 mg base)/3 mL nebulizer solution 6 mL dexamethasone sod phos PF injection 10 mg magnesium sulfate in water 2 gram/50 mL (4 %) infusion 2 g methylPREDNISolone 4 mg tablets doxycycline hyclate 100 mg capsule albuterol (PROVENTIL) 2.5 mg /3 mL (0.083 %) nebulizer solution 2.5 mg First Provider Eval: ED Events Date/Time Event User Comments 03/01/24724 Medical Screening Begins POLO LLANES MD -- 03/01/24724 First Provider Evaluation POLO LLANES MD -- ED COURSE Diagnosis/Impression as of 03/01/24 1013 COPD with acute exacerbation Wheezing Tobacco abuse Procedures: Procedures MDM: Medical Decision Making Copd exacerbation vs CHF vs ACS vs pneumonia vs bronchitis vs covid/flu/rsv. Check labs, vbg for co2 retention, Cxr for infiltrate or pulmonary edema, give nebs and iv mag bolus and decadron load Cxr my read shows no infiltrate or edema. Labs show chronic co2 retention, has persistent leukocytosis on chart review. Still smoking. Improved on rechecks, sleeping. Discharge with steroid burst and doxycycline, encouraged smoking cessation At discharge, patient started to walk around and saying he was short of breath. Rechecked patient, tachycardic, wheezing again, spo2 90%. Patient beligerent, stating "yall dont want to help me, just unhook me so I can go in the parking lot" "I dont know why I keep getting short of breath". Explained multiple times with RN the situation and offered further treatment, patient okay with another nebulizer. Another nebulizer given, still tachypneic and sob with minimal exertion. Not safe for discharge. Will admit to IM for further workup and treatment, discussed with Dr Madera Problems Addressed: COPD with acute exacerbation: complicated acute illness or injury with systemic symptoms that poses a threat to life or bodily functions Tobacco abuse: chronic illness or injury with exacerbation, progression, or side effects of treatment that poses a threat to life or bodily functions Wheezing: complicated acute illness or injury Amount and/or Complexity of Data Reviewed Labs: ordered. Decision-making details documented in ED Course. Radiology: ordered and independent interpretation performed. Decision-making details documented in ED Course. Risk Prescription drug management. Drug therapy requiring intensive monitoring for toxicity. Decision regarding hospitalization. Diagnosis or treatment significantly limited by social determinants of health. Flowsheet Documentation: Scoring Tools: No data recorded Disposition/Condition: ED Disposition None Discharge Medications: Patient's Medications START taking these medications DOXYCYCLINE HYCLATE 100 MG CAPSULE Take 1 capsule by mouth in the morning and 1 capsule in the evening. METHYLPREDNISOLONE 4 MG TABLETS Take by mouth SEE-INSTRUCTIONS. follow package directions CONTINUE taking these medications which have NOT CHANGED ALPRAZOLAM (XANAX) 0.5 MG TABLET Take 1 tablet by mouth in the morning and 1 tablet in the evening. CLOPIDOGREL 75 MG TABLET Take 1 tablet by mouth in the morning. IPRATROPIUM-ALBUTEROL 0.5 MG-3 MG(2.5 MG BASE)/3 ML NEBULIZER SOLUTION Inhale 3 mL every 4 (four) hours as needed for Wheezing or Shortness of Breath. IPRATROPIUM-ALBUTEROL 0.5 MG-3 MG(2.5 MG BASE)/3 ML NEBULIZER SOLUTION Inhale 3 mL every 4 (four) hours as needed for Wheezing or Shortness of Breath. NON-FORMULARY MEDICATION OXYGEN PRAMIPEXOLE 0.125 MG TABLET Take 1 tablet by mouth at bedtime. START taking Modified Medications as Prescribed No medications on file STOP taking these medications No medications on file Follow-up: Electronically signed by: Polo Llanes MD 03/01/24 0855 Polo Llanes MD 03/01/24 1013 [facility] 2024-02-15 13:33:31 Addended by: CECELIA POTTER on: 02/15/2024 01:33 PM Modules accepted: Orders [facility] 2024-02-15 13:28:53 Rx quantity was sent in incorrectly. Qty sent was for 90 days, however patient uses one box per week. . 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 [facility] Reyna Spears [facility] 2024-01-17 10:33:46 Carole, we have a referral for pulmonary rehabilitation for you. Please call us at [phone] so we can discuss pulmonary rehabilitation with you. Thank you, Kathie Kathie Slaughter RT [facility] 2023-12-18 07:23:59 Last Refilled: Disp Refills Start End MORGAN ALPRAZolam 0.25 mg tablet 21 tablet 0 12/03/2023 12/10/2023 No Sig: Take 4 tablets by mouth 3 (three) times daily as needed for Other (anxiety) for up to 7 days. Sent to pharmacy as: ALPRAZolam 0.25 mg tablet (XANAX) Class: eRX Route: Oral Order: [id number] Date/Time Signed: 12/03/2023 10:47 E-Prescribing Status: Receipt confirmed by pharmacy (12/03/2023 10:47 AM CDT) Renewals Renewal requests to authorizing provider (Horacio Hamilton AGACNP) prohibited Controlled? ADDY Class Yes [1] C-IV Limited Dependence [4] Notes: please review Recent Visits Date Type Provider Dept 12/07/23 Office Visit Sherita Magaña PA [facility] 06/21/23 Office Visit Steven Morales MD [facility] 05/28/23 Office Visit Betty Schmitz FNP [facility] 05/07/23 Office Visit Betty Schmitz FNP [facility] 03/20/23 Office Visit Steven Morales MD [facility] 02/21/23 Office Visit Sherita Magaña PA [facility] 02/19/23 Office Visit Betty Schmitz FNP [facility] 10/24/22 Office Visit Betty Schmitz FNP [facility] Showing recent visits within past 540 days with a meds authorizing provider and meeting all other requirements Future Appointments No visits were found meeting these conditions. Showing future appointments within next 150 days with a meds authorizing provider and meeting all other requirements Oliva Curran RN [facility] 2023-12-04 13:48:41 TRANSITIONAL CARE MANAGEMENT ASSESSMENT 12/04/2023 Darwin Del Valle [id number] Darwin Del Valle is a 63 year old /White male was admitted on 12/01/23 to [facility]. He was discharged on 12/03/23 with discharge disposition of HR- Routine Discharge. Admitting Physician: Florian Nguyen Discharge Diagnosis: AE COPD No linked episodes TCM [id number] outreach documentation: Discharge Assessment Chart Assessed: 12/04/23 Transition CM attempted to contact patient x2. CM left a discreet voicemail explaining purpose of call and call back information. Jasmine Doshi RN [facility] 2023-12-04 11:43:44 CM LVM to return call. Will attempt again at a later time. [facility] 2023-12-03 11:06:05 Problem: Pain Goal: Control of pain at or below patient's documented comfort goal Outcome: Adequate for discharge Goal: Reduction in pain sensation Outcome: Adequate for discharge Problem: Discharge Planning Goal: Adequate for discharge Outcome: Adequate for discharge Goal: Effective communication Outcome: Adequate for discharge Problem: Falls, Risk of Goal: Absence of falls Outcome: Adequate for discharge Problem: Skin integrity Impaired (Risk or Actual) Goal: Wound healing Outcome: Adequate for discharge Goal: Prevention of new skin breakdown Outcome: Adequate for discharge Problem: Venous Thromboembolism, (actual or risk of) Goal: Absence of venous thromboembolism (Risk) Outcome: Adequate for discharge Goal: Prevent further complications associated with VTE diagnosis (Actual) Outcome: Adequate for discharge Problem: Respiratory Function - Impaired Goal: Able to cough effectively Outcome: Adequate for discharge Goal: Adequate oxygenation Outcome: Adequate for discharge Goal: Adequate work of breathing Outcome: Adequate for discharge Goal: Patent airway Outcome: Adequate for discharge Homar Sandhu RN [facility] 2023-12-03 01:40:07 Problem: Pain Goal: Control of pain at or below patient's documented comfort goal 12/03/2023138 by Sagrario Ocampo RN Outcome: Progressing as expected 12/03/2023138 by Sagrario Ocampo RN Outcome: Change in patient condition/care plan Goal: Reduction in pain sensation 12/03/2023138 by Sagrario Ocampo RN Outcome: Progressing as expected 12/03/2023138 by Sagrario Ocampo RN Outcome: Change in patient condition/care plan Problem: Discharge Planning Goal: Adequate for discharge 12/03/2023138 by Sagrario Ocampo RN Outcome: Progressing as expected 12/03/2023138 by Sagrario Ocampo RN Outcome: Change in patient condition/care plan Goal: Effective communication 12/03/2023138 by Sagrario Ocampo RN Outcome: Progressing as expected 12/03/2023138 by Sagrario Ocampo RN Outcome: Change in patient condition/care plan Problem: Falls, Risk of Goal: Absence of falls 12/03/2023138 by Sagrario Ocampo RN Outcome: Progressing as expected 12/03/2023138 by Sagrario Ocampo RN Outcome: Change in patient condition/care plan Problem: Skin integrity Impaired (Risk or Actual) Goal: Wound healing 12/03/2023138 by Sagrario Ocampo RN Outcome: Progressing as expected 12/03/2023138 by Sagrario Ocampo RN Outcome: Change in patient condition/care plan Goal: Prevention of new skin breakdown 12/03/2023138 by Sagrario Ocampo RN Outcome: Progressing as expected 12/03/2023138 by Sagrario Ocampo RN Outcome: Change in patient condition/care plan Problem: Venous Thromboembolism, (actual or risk of) Goal: Absence of venous thromboembolism (Risk) 12/03/2023138 by Sagrario Ocampo RN Outcome: Progressing as expected 12/03/2023138 by Sagrario Ocampo RN Outcome: Change in patient condition/care plan Goal: Prevent further complications associated with VTE diagnosis (Actual) 12/03/2023138 by Sagrario Ocampo RN Outcome: Progressing as expected 12/03/2023138 by Sagrario Ocampo RN Outcome: Change in patient condition/care plan Problem: Respiratory Function - Impaired Goal: Able to cough effectively 12/03/2023138 by Sagrario Ocampo RN Outcome: Progressing as expected 12/03/2023138 by Sagrario Ocampo RN Outcome: Change in patient condition/care plan Goal: Adequate oxygenation 12/03/2023138 by Sagrario Ocampo RN Outcome: Progressing as expected 12/03/2023138 by Sagrario Ocampo RN Outcome: Change in patient condition/care plan Goal: Adequate work of breathing 12/03/2023138 by Sagrario Ocampo RN Outcome: Progressing as expected 12/03/2023138 by Sagrario Ocampo RN Outcome: Change in patient condition/care plan Goal: Patent airway 12/03/2023138 by Sagrario Ocampo RN Outcome: Progressing as expected 12/03/2023138 by Sagrario Ocampo RN Outcome: Change in patient condition/care plan Sagrario Ocampo RN [facility] 2023-12-02 12:45:30 Problem: Pain Goal: Control of pain at or below patient's documented comfort goal Outcome: Progressing as expected Goal: Reduction in pain sensation Outcome: Progressing as expected Problem: Discharge Planning Goal: Adequate for discharge Outcome: Progressing as expected Goal: Effective communication Outcome: Progressing as expected Problem: Falls, Risk of Goal: Absence of falls Outcome: Progressing as expected Problem: Skin integrity Impaired (Risk or Actual) Goal: Wound healing Outcome: Progressing as expected Goal: Prevention of new skin breakdown Outcome: Progressing as expected Problem: Venous Thromboembolism, (actual or risk of) Goal: Absence of venous thromboembolism (Risk) Outcome: Progressing as expected Goal: Prevent further complications associated with VTE diagnosis (Actual) Outcome: Progressing as expected Problem: Respiratory Function - Impaired Goal: Able to cough effectively Outcome: Progressing as expected Goal: Adequate oxygenation Outcome: Progressing as expected Goal: Adequate work of breathing Outcome: Progressing as expected Goal: Patent airway Outcome: Progressing as expected [facility] 2023-12-02 06:08:42 Problem: Pain Goal: Control of pain at or below patient's documented comfort goal Outcome: Progressing as expected Goal: Reduction in pain sensation Outcome: Progressing as expected Problem: Discharge Planning Goal: Adequate for discharge Outcome: Progressing as expected Goal: Effective communication Outcome: Progressing as expected Problem: Falls, Risk of Goal: Absence of falls Outcome: Progressing as expected Problem: Skin integrity Impaired (Risk or Actual) Goal: Wound healing Outcome: Progressing as expected Goal: Prevention of new skin breakdown Outcome: Progressing as expected Problem: Respiratory Function - Impaired Goal: Able to cough effectively Outcome: Progressing as expected Goal: Adequate oxygenation Outcome: Progressing as expected Goal: Adequate work of breathing Outcome: Progressing as expected Goal: Patent airway Outcome: Progressing as expected [facility] 2023-12-01 15:15:00 Pt feels he needs to be admitted because he can not breathe well with ambulation [facility] Beverly Brown RN [facility] 2023-12-01 14:37:00 Pt ambulated to br and sats dropped into 80s md notified [facility] 2023-12-01 12:25:54 Pt resting comfortably on 3l n/c (his baseline). He asked to lay back and take a nap [facility] 2023-12-01 11:05:12 Patient presents to ER with home 02. Reports sob for a few days. Has copd and smokes. 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 History provided by: Patient Past Medical History/Immunizations: Past Medical History: Diagnosis Date COPD (chronic obstructive pulmonary disease) Tobacco consumption Tetanus received in last 5 years: Yes Childhood immunizations: Up-to-date Allergies: Allergies Allergen Reactions Codeine Nausea and/or Vomiting and Unknown - See comments Protamine Other - See comments Hypotension and bradycardia Past Social History: Tobacco Use Every Day; Cigarettes: Started 06/17/1969; Last attempted to quit 06/17/2019; Smoked an average of 0.5 packs/day for 50.0 years Passive Exposure: Current Smokeless Tobacco: Never used smokeless tobacco. Vaping Use Never used Alcohol Use Yes. Comments: social Drug Use Never. Past Surgical History: Past Surgical History: Procedure Laterality Date ANGIOGRAM VIA LOWER EXTREMITY ACCESS (SHX) Right 07/22/2021 Surgeon: Fuentes Cabrera MD; Location: [facility] OR LOCATION ANGIOPLASTY Right 07/23/2023 Surgeon: Gilbert Rodríguez MD; Location: [facility] OR LOCATION ARTERIOGRAM Right 07/23/2023 Surgeon: Gilbert Rodríguez MD; Location: [facility] OR LOCATION CHOLECYSTECTOMY LAPAROSCOPY WITH CHOLANGIOGRAM (SHX) N/A 05/16/2023 Surgeon: Sabrina Villareal MD; Location: [facility] OR LOCATION FEMORAL ENDARTERECTOMY Right 04/03/2023 Surgeon: Gilbert Rodríguez MD; Location: [facility] LOCATION HERNIA REPAIR TOE AMPUTATION Right 07/26/2021 Surgeon: Onel Segundo DPM; Location: [facility] OR LOCATION TOE AMPUTATION Right 5th digit Rt foot VASCULAR STENTING Right 07/23/2023 Surgeon: Gilbert Rodríguez MD; Location: [facility] OR LOCATION Review of Systems: Review of Systems Constitutional: Negative for activity change, appetite change, chills, diaphoresis and fatigue. HENT: Negative for congestion, ear discharge, ear pain, facial swelling, mouth sores, sore throat, trouble swallowing and voice change. Eyes: Negative for photophobia, discharge, redness, itching and visual disturbance. Respiratory: Positive for cough, chest tightness and shortness of breath. Negative for apnea, choking, wheezing and stridor. Breasts: Negative for discharge and mass. Cardiovascular: Negative for chest pain, palpitations and leg swelling. Gastrointestinal: Negative for abdominal distention, constipation, diarrhea, nausea and vomiting. Genitourinary: Negative for bladder incontinence, dysuria, frequency, hematuria, flank pain and difficulty urinating. Musculoskeletal: Negative for arthralgias, back pain, gait problem, joint swelling, myalgias, neck pain and neck stiffness. Skin: Negative for color change, pallor, rash and wound. Neurological: Negative for dizziness, syncope, facial asymmetry, speech difficulty, weakness, light-headedness, numbness and headaches. Psychiatric/Behavioral: Negative for agitation, behavioral problems, confusion and self-injury. Hematological: Negative for adenopathy, cold intolerance and heat intolerance. Does not bruise/bleed easily. Endocrine: Negative for cold intolerance, heat intolerance, polydipsia and polyphagia. Physical Exam: ED Triage Vitals [12/01/23 1105] Weight 63.5 kg (140 lb) Actual or estimated Estimated by patient/family report Height 1.829 m (6') BP 113/71 Pulse 96 Resp 24 Temp 35.9 ?C (96.6 ?F) Temp source Oral SpO2 97 % Measured on On oxygen Physical Exam Constitutional: General: He is not in acute distress. Appearance: He is well-developed. He is diaphoretic. HENT: Head: Normocephalic and atraumatic. Right Ear: External ear normal. Left Ear: External ear normal. Eyes: General: No scleral icterus. Right eye: No discharge. Left eye: No discharge. Neck: Thyroid: No thyromegaly. Trachea: No tracheal deviation. Cardiovascular: Rate and Rhythm: Normal rate and regular rhythm. Heart sounds: Normal heart sounds. Pulmonary: Effort: No respiratory distress. Breath sounds: No stridor. Wheezing present. Comments: Increase WOB and diffuse wheezing Abdominal: General: Bowel sounds are normal. There is no distension. Palpations: Abdomen is soft. Tenderness: There is no abdominal tenderness. Musculoskeletal: General: No tenderness or deformity. Normal range of motion. Cervical back: Normal range of motion and neck supple. Right lower leg: No edema. Left lower leg: No edema. Lymphadenopathy: Cervical: No cervical adenopathy. Skin: General: Skin is warm. Coloration: Skin is not pale. Findings: No erythema or rash. Neurological: General: No focal deficit present. Mental Status: He is alert and oriented to person, place, and time. Motor: No abnormal muscle tone. Psychiatric: Behavior: Behavior normal. Thought Content: Thought content normal. Judgment: Judgment normal. Radiology: XR CHEST 1 VW Final Result Chest X-Ray Indication: shortness of breath Technique: Frontal view(s) of the chest submitted for interpretation. Comparison: October 25, 2023 RL: Ordering Clinician: AJAY ALVAREZ Technical Quality: Adequate Findings: No consolidation or effusion. No acute mediastinal abnormality. No acute fractures. IMPRESSION Impression: No acute abnormalities. Lab Results: Lab Results CBC WITH DIFF - Abnormal Result Value Ref Range WBC 8.15 4.20 - 10.70 10*3/?L RBC 4.51 4.26 - 5.52 10*6/?L HGB 14.3 12.2 - 16.4 g/dL HCT 44.0 38.4 - 49.3 % MCV 97.6 (*) 81.7 - 95.6 fL MCH 31.7 26.1 - 32.7 pg MCHC 32.5 31.2 - 35.0 g/dL RDW-SD 52.9 (*) 38.5 - 51.6 fL RDW-CV 14.6 12.1 - 15.4 % PLT 354 (*) 150 - 328 10*3/?L MPV 9.7 (*) 9.8 - 13.0 fL NRBC/100 WBC 0.0 0.0 - 10.0 /100 WBCs NRBC x10 3 <0.01 10*3/?L GRAN MAT (NEUT) % 72.4 % IMM GRAN % 0.60 % LYMPH % 14.8 % MONO % 7.5 % EOS % 3.6 % BASO % 1.1 % GRAN MAT x10 3 (ANC) 5.90 1.99 - 6.95 10*3/uL IMM GRAN x10 3 0.05 0.00 - 0.06 10*3/uL LYMPH x10 3 1.21 1.09 - 3.23 10*3/uL MONO x10 3 0.61 0.36 - 1.02 10*3/uL EOS x10 3 0.29 0.06 - 0.53 10*3/uL BASO x10 3 0.09 0.01 - 0.09 10*3/uL COMP. METABOLIC PANEL (83049) - Abnormal NA 139 135 - 145 mmol/L K 4.3 3.5 - 5.0 mmol/L CL 98 98 - 108 mmol/L CO2 TOTAL 35 (*) 23 - 31 mmol/L AGAP 6 2 - 16 BUN 7 7 - 23 mg/dL GLUCOSE 114 (*) 70 - 110 mg/dL CREATININE 0.83 0.60 - 1.25 mg/dL TOTAL BILI 0.7 0.1 - 1.1 mg/dL CALCIUM 9.0 8.6 - 10.6 mg/dL T PROTEIN 7.2 6.3 - 8.2 g/dL ALBUMIN 4.0 3.5 - 5.0 g/dL ALK PHOS 120 34 - 122 U/L ALTv 14 5 - 50 U/L AST(SGOT) 22 13 - 40 U/L eGFR 99.0 mL/min/1.73m2 TROPONIN I - Normal TROPONIN I 0.002 <=0.034 ng/mL N-TERMINAL PRO-BNP - Normal NT-proBNP 31 <=125 pg/mL INFLUENZA A/B RSV COVID NAAT - Normal Influenza A NAAT Negative Negative Influenza B NAAT Negative Negative RSV by PCR Negative Negative SARS-CoV-2 NAAT Negative Negative MAGNESIUM - Normal MAGNESIUM 2.2 1.7 - 2.4 mg/dL EKG: If EKG completed, see Procedure Note. Orders and Treatments: Orders Placed This Encounter Procedures XR CHEST 1 VW Cbc with Diff Comp. Metabolic Panel (93515) Troponin I N-Terminal Pro-Bnp Influenza A B RSV COVID NAAT Magnesium Lab Only COVID Interpretation Orders Placed This Encounter Medications methylPREDNISolone sod succ (SOLU-MEDROL (PF)) injection 120 mg ipratropium-albuteroL (DUONEB) 0.5 mg-3 mg(2.5 mg base)/3 mL nebulizer solution 3 mL azithromycin (ZITHROMAX) tablet 500 mg ipratropium-albuteroL (DUONEB) 0.5 mg-3 mg(2.5 mg base)/3 mL nebulizer solution 3 mL benzonatate (TESSALON PERLES) capsule 100 mg azithromycin 250 mg tablet predniSONE 20 mg tablet benzonatate 100 mg capsule First Provider Eval: ED Events Date/Time Event User Comments 12/01/23 1059 Medical Screening Begins AJAY ALVAREZ MD -- 12/01/23 1059 First Provider Evaluation AJAY ALVAREZ MD -- AdmissionCare Guideline: COPD - OBS, Observation Based on the indications selected for the patient, the bed status of Observation was determined to be MET The following indications were selected as present at the time of evaluation of the patient: - Observation Care Admission Criteria - Observation care is indicated for 1 or more of the following: - Increase in pre-existing supplemental oxygen requirement to maintain oxygenation at baseline level AdmissionCare documentation entered by: Ajay Alvarez [facility] [employer], 28 edition, Copyright ? 2023 [facility] [employer] All Rights Reserved. [id number]:19-05:00 ED COURSE Diagnosis/Impression as of 12/01/23 1441 COPD exacerbation Procedures: Procedures MDM: Medical Decision Making DDx incl COPD exac, Covid, bacterial PNA, CHF, Trop, dysrhythmia, et al D/w pt results, rec plan of care, f/u, and red flags for return. Pt resting comfortably, NAD, 99% on his baseline 3L, but w/ hypoxia into 80's% and wheezing when attempting to ambulate to bathroom. Will plan OBS for ongoing supportive care. Amount and/or Complexity of Data Reviewed Labs: ordered. Radiology: ordered. Risk Prescription drug management. Flowsheet Documentation: Disposition/Condition: ED Disposition ED Disposition Admit - Observation Condition Stable Comment -- Discharge Medications: Patient's Medications START taking these medications AZITHROMYCIN 250 MG TABLET Take 1 tablet by mouth in the morning. BENZONATATE 100 MG CAPSULE Take 1 capsule by mouth 3 (three) times daily as needed for Cough. PREDNISONE 20 MG TABLET 40mg PO QD x4d CONTINUE taking these medications which have NOT CHANGED CLOPIDOGREL 75 MG TABLET Take 1 tablet by mouth in the morning. GUAIFENESIN 400 MG TABLET Take 1 tablet by mouth every 4 (four) hours as needed for Cough. IPRATROPIUM-ALBUTEROL 0.5 MG-3 MG(2.5 MG BASE)/3 ML NEBULIZER SOLUTION Inhale 3 mL every 4 (four) hours as needed for Wheezing or Shortness of Breath. NON-FORMULARY MEDICATION OXYGEN START taking Modified Medications as Prescribed No medications on file STOP taking these medications No medications on file Follow-up: Electronically signed by: Ajay Alvarez MD 12/01/23 1349 Ajay Alvarez MD 12/01/23 1441 T [facility] 2023-12-01 10:57:00 AdmissionCare Guideline: COPD - OBS, Observation Based on the indications selected for the patient, the bed status of Observation was determined to be MET The following indications were selected as present at the time of evaluation of the patient: - Observation Care Admission Criteria - Observation care is indicated for 1 or more of the following: - Increase in pre-existing supplemental oxygen requirement to maintain oxygenation at baseline level AdmissionCare documentation entered by: Ajay Alvarez [facility], 28th edition, Copyright ? 2023 [facility] [employer] [facility] All Rights Reserved. [id number]:19-05:00 T [facility] 2023-11-14 10:09:51 Patient came to office requesting med refill. Called Pharmacy they stated that he was needing 540ml dispensed. Verbal order given per Betty Schmitz DNP. Notified patient. Oliva Curran RN [facility] 2023-11-14 08:21:36 Medication refilled per policy: Last office visit: 06/21/23 Next office visit: not scheduled Requested Prescriptions Pending Prescriptions Disp Refills ipratropium-albuteroL 0.5 mg-3 mg(2.5 mg base)/3 mL nebulizer solution 12 mL 3 Sig: Inhale 3 mL every 4 (four) hours as needed for Wheezing or Shortness of Breath. Last fill date: 09/12/23 Notes: Chronic obstructive pulmonary disease, unspecified COPD type [facility] 2023-11-13 11:53:31 Darwin Del Valle is a 63 year old male and Hollie with [facility] is calling about the pts refill for the ipratropium-albuteroL 0.5 mg-3 mg(2.5 mg base)/3 mL nebulizer solution. They stated they do not have the medication script even though the pt told them it should be in. Asking for it to be resent please. [id number] [place], [place] - [address] [facility] [address] [facility] [address] [facility] [id number] Mellisa Rqoue [facility] 2023-11-13 09:00:18 Darwin Del Valle is a 63 year old male. Patient is calling stating that when he called the pharmacy to refill the medication ipratropium-albuteroL 0.5 mg-3 mg(2.5 mg base)/3 mL nebulizer solution they informed the patient that the prescription was canceled. Patient is almost out of medication Jessica Hernandez [facility] 2023-10-29 18:51:18 TRANSITIONAL CARE MANAGEMENT ASSESSMENT 10/29/2023 Darwin Del Valle [id number] Darwin Del Valle is a 63 year old /White male was admitted on 10/25/[address] He was discharged on 10/27/23 with discharge disposition of HR- Routine Discharge. Admitting Physician: Gonzalo Davenport Discharge Diagnosis: OPD exacerbation, MMRC 4, CAT 31 chronic respiratory failure with hypoxia on home 3L O2 No linked episodes TCM Mze-gjza-al-face outreach documentation: Discharge Assessment Chart Assessed: 10/29/23 CM reviewed chart. Call deferred at this time due to pt followed by chronic management team. Future Appointments: Future Appointments Provider Department Dept Phone 11/13/2023 4:00 PM Amie Shen, [facility], [facility] [phone] Jasmine Doshi RN, MSN, MEDSURG-BC, CCRN, CCM Transitions of [employer] Operator Esthetician Makeup Artist Management Office: [phone] DT Jasmine Doshi RN [facility] 2023-10-27 14:36:32 Problem: Respiratory Function - Impaired Goal: Adequate oxygenation Outcome: Adequate for discharge Goal: Adequate work of breathing Outcome: Adequate for discharge Problem: Falls, Risk of Goal: Absence of falls Outcome: Adequate for discharge Problem: Infection Risk Goal: Absence of infection Outcome: Adequate for discharge DT April Stanton RN [facility] 2023-10-26 22:45:55 Problem: Respiratory Function - Impaired Goal: Adequate oxygenation Outcome: Progressing as expected Goal: Adequate work of breathing Outcome: Progressing as expected Problem: Falls, Risk of Goal: Absence of falls Outcome: Progressing as expected Problem: Infection Risk Goal: Absence of infection Outcome: Progressing as expected Mriacle Lion RN [facility] 2023-10-26 15:32:56 Problem: Respiratory Function - Impaired Goal: Adequate oxygenation 10/26/2023 1532 by April Mcdonough RN Outcome: Progressing as expected 10/26/2023 1527 by April Mcdonough RN Outcome: Progressing as expected Goal: Adequate work of breathing 10/26/2023 1532 by April Mcdonough RN Outcome: Progressing as expected 10/26/2023 1527 by April Mcdonough RN Outcome: Progressing as expected Problem: Falls, Risk of Goal: Absence of falls 10/26/2023 1532 by April Mcdonough RN Outcome: Progressing as expected 10/26/2023 1527 by April Mcdonough RN Outcome: Progressing as expected [facility] 2023-10-26 15:27:44 Problem: Respiratory Function - Impaired Goal: Adequate oxygenation Outcome: Progressing as expected Goal: Adequate work of breathing Outcome: Progressing as expected Problem: Falls, Risk of Goal: Absence of falls Outcome: Progressing as expected [facility] 2023-10-26 09:44:39 Called patient to scheduled. [facility] and schedule a PH appointment. If patient calls back please help schedule an appointment with any of the providers if betty Schmitz NP does not have any openings Sandra Saldivar [facility] 2023-10-26 00:37:24 Significant expiratory wheezing on admission. Has moderate exertional dyspnea, but intermittently removes nasal canula because 'nose is blocked' Problem: Respiratory Function - Impaired Goal: Adequate oxygenation Outcome: Not progressing as expected Problem: Falls, Risk of Goal: Absence of falls Outcome: Progressing as expected Roma Leonard RN [facility] 2023-10-25 22:18:18 Nurse Report Report given to ALMA Brandon in [place]. Chief complaint, assessment findings and orders reviewed. Plan of care discussed with nurse. Juliane Slaughter RN Juliane Slaughter RN [facility] 2023-10-25 22:08:19 Patient transferred to [place] for diagnosis of COPD with acute exacerbation Patient agrees to transfer/admit plan and verbalized understanding of plan of care Patient awake alert, oriented, resp reg unlabored, skin w/d PIV patent, no s/s infiltration noted, No adverse reaction to medications given while in ED. Report given to [facility] personnel [facility] 2023-10-25 15:53:39 Provider at bedside T [facility] 2023-10-25 15:47:30 Patient repoorts history of COPD and can't breathe. States he has been like that for about one week "Ever since I left here." [place]yp[place], barely moving air, on 3 L/min, alert and oriented. Sathish Trinidad RN [facility] - [facility] 2023-10-25 15:43:00 [facility] Emergency Department Note Patient Name: Darwin Del Valle Date of : 1960 63 year old male Treatment Room: [facility] Primary Care Physician: Betty Schmitz Patient Escorted by: Self [9] Mode of Arrival: Personal means [1] EMS Treatment Prior to ED Arrival: CUSTOMER ORDERS CLERK treatment: Oxygen CUSTOMER ORDERS CLERK treatment comments: duoneb Travel and Exposure Screening: Symptoms Does patient have any of these symptoms?: (not recorded) Exposure Screening Has patient had contact with someone with a communicable disease in the last month?: (not recorded) Diseases exposed to:: (not recorded) Is Patient ?: (not recorded) Exposure Date: (not recorded) Chief Complaint: Chief Complaint Patient presents with DYSPNEA History of Present Illness: 63 yo male with well known history of severe COPD, on Home O2 and with Continuous Tobacco Abuse, presenting to the ED with a COPD Exacerbation, with moderate SOB, wheezing, feeling fatigued. Patient denies fever, chest pain, purulent expectoration or chest pain. History provided by: Patient physician assistant used: No Shortness of Breath Severity: Moderate Onset quality: Gradual Duration: 2 days Timing: Constant Progression: Worsening Chronicity: New Context comment: History of COPD on Home O2 Relieved by: None tried Worsened by: Exertion Ineffective treatments: Oxygen. Associated symptoms: cough Associated symptoms: no abdominal pain, no chest pain, no diaphoresis, no ear pain, no fever, no headaches, no rash, no sore throat, no vomiting and no wheezing Risk factors: tobacco use Past Medical History/Immunizations: Past Medical History: Diagnosis Date COPD (chronic obstructive pulmonary disease) Tobacco consumption Tetanus received in last 5 years: No Allergies: Allergies Allergen Reactions Codeine Nausea and/or Vomiting and Unknown - See comments Protamine Other - See comments Hypotension and bradycardia Past Social History: Tobacco Use Every Day; Cigarettes: Started 06/17/1969; Last attempted to quit 06/17/2019; Smoked an average of 0.5 packs/day for 50.0 years Passive Exposure: Current Smokeless Tobacco: Never used smokeless tobacco. Vaping Use Never used Alcohol Use Yes. Comments: social Drug Use Never. Past Surgical History: Past Surgical History: Procedure Laterality Date ANGIOGRAM VIA LOWER EXTREMITY ACCESS (SHX) Right 07/22/2021 Surgeon: Fuentes Cabrera MD; Location: [facility] OR LOCATION ANGIOPLASTY Right 07/23/2023 Surgeon: Gilbert Rodríguez MD; Location: [facility] ARTERIOGRAM Right 07/23/2023 Surgeon: Gilbert Rodríguez MD; Location: [facility]ATION CHOLECYSTECTOMY LAPAROSCOPY WITH CHOLANGIOGRAM (SHX) N/A 05/16/2023 Surgeon: Sabrina Villareal MD; Location: [facility] OR LOCATION FEMORAL ENDARTERECTOMY Right 04/03/2023 Surgeon: Gilbert Rodríguez MD; Location: [facility] OR LOCATION HERNIA REPAIR TOE AMPUTATION Right 07/26/2021 Surgeon: Onel Segundo DPM; Location: [facility] OR LOCATION TOE AMPUTATION Right 5th digit Rt foot VASCULAR STENTING Right 07/23/2023 Surgeon: Gilbert Rodríguez MD; Location: [facility] OR LOCATION Review of Systems: Review of Systems Constitutional: Negative for activity change, appetite change, chills, diaphoresis, fatigue and fever. HENT: Negative for congestion, ear discharge, ear pain, rhinorrhea, sore throat and trouble swallowing. Eyes: Negative for photophobia, pain, discharge and redness. Respiratory: Positive for cough and shortness of breath. Negative for chest tightness and wheezing. Cardiovascular: Negative for chest pain, palpitations and leg swelling. Gastrointestinal: Negative for abdominal distention, abdominal pain, blood in stool, constipation, nausea and vomiting. Genitourinary: Negative for dysuria, urgency, polyuria, frequency, hematuria and flank pain. Musculoskeletal: Negative for arthralgias, joint swelling, myalgias and neck stiffness. Skin: Negative for color change, rash and wound. Neurological: Negative for dizziness, seizures, syncope, facial asymmetry, weakness, light-headedness, numbness and headaches. Psychiatric/Behavioral: Negative for agitation, confusion, hallucinations and self-injury. The patient is not nervous/anxious. Hematological: Negative for adenopathy and cold intolerance. Does not bruise/bleed easily. Endocrine: Negative for cold intolerance, polydipsia and polyuria. Physical Exam: ED Triage Vitals [10/25/23 1548] Weight 63.5 kg (140 lb) Actual or estimated Height 1.829 m (6') BP 114/77 Pulse 115 Resp 26 Temp 36.7 ?C (98 ?F) Temp source Oral SpO2 96 % Measured on On oxygen Physical Exam Vitals and nursing note reviewed. Constitutional: General: He is awake. He is not in acute distress. Appearance: He is well-developed, well-groomed and underweight. He is ill-appearing. He is not toxic-appearing or diaphoretic. HENT: Head: Normocephalic and atraumatic. Right Ear: External ear normal. Left Ear: External ear normal. Nose: Nose normal. Mouth/Throat: Pharynx: No oropharyngeal exudate. Eyes: General: No scleral icterus. Right eye: No discharge. Left eye: No discharge. Conjunctiva/sclera: Conjunctivae normal. Pupils: Pupils are equal, round, and reactive to light. Neck: Thyroid: No thyromegaly. Vascular: No JVD. Trachea: No tracheal deviation. Cardiovascular: Rate and Rhythm: Normal rate and regular rhythm. Heart sounds: Normal heart sounds. No murmur heard. No friction rub. No gallop. Pulmonary: Effort: Pulmonary effort is normal. No respiratory distress. Breath sounds: Decreased air movement present. No stridor. Examination of the right-middle field reveals decreased breath sounds and wheezing. Examination of the left-middle field reveals decreased breath sounds and wheezing. Examination of the right-lower field reveals decreased breath sounds and wheezing. Examination of the left-lower field reveals decreased breath sounds and wheezing. Decreased breath sounds and wheezing present. No rhonchi or rales. Chest: Chest wall: No tenderness. Abdominal: General: Bowel sounds are normal. There is no distension. Palpations: Abdomen is soft. There is no mass. Tenderness: There is no abdominal tenderness. There is no guarding or rebound. Musculoskeletal: General: No tenderness or deformity. Normal range of motion. Cervical back: Normal range of motion and neck supple. Lymphadenopathy: Cervical: No cervical adenopathy. Skin: General: Skin is warm and dry. Coloration: Skin is not pale. Findings: No erythema or rash. Comments: Psoriatic plaques present in his upper extremities Neurological: Mental Status: He is alert and oriented to person, place, and time. Cranial Nerves: No cranial nerve deficit. Motor: No abnormal muscle tone. Coordination: Coordination normal. Deep Tendon Reflexes: Reflexes are normal and symmetric. Reflexes normal. Psychiatric: Behavior: Behavior normal. Behavior is cooperative. Thought Content: Thought content normal. Judgment: Judgment normal. Radiology: XR CHEST 1 VW Final Result INDICATION: SOB, Hypoxemia ORDERING PROVIDER: JULIETA YING TECHNIQUE: 2 frontal radiographs of the chest RL: [id number] COMPARISON: 10/12/2023 FINDINGS/ IMPRESSION The cardiac silhouette and pulmonary vascularity are within normal limits. Pulmonary hyperexpansion again noted. No focal consolidation identified. Stable blunting of the left costophrenic angle may reflect a tiny pleural effusion or pleural thickening. No evidence of pneumothorax. Deformity of the posterior left seventh rib is unchanged and compatible with remote trauma. Lab Results: Lab Results ABG+COOX+NA+K+GLU+CA2+ - Abnormal Result Value Ref Range PH 7.36 7.35 - 7.45 PCO2 55 (*) 35 - 45 mmHg PO2 123 (*) 80 - 100 mmHg HCO3 31 (*) 22 - 26 mEq/L BE 3.8 (*) -3.0 - 3.0 mEq/L THB 14.7 13.5 - 18.0 g/dL %O2HB 96.3 94.0 - 99.0 % %COHB ART 1.8 (*) 0.0 - 1.5 % %METHB ART 0.2 (*) 0.4 - 1.5 % VOL%O2 ART 20.1 15.0 - 23.0 % NA 135 135 - 145 mmol/L K+ 4.0 3.5 - 5.0 mmol/L AC CA IONZ 4.50 4.50 - 5.30 mg/dL GLUCOSE 267 (*) 70 - 110 mg/dL CBC WITH DIFF BASIC METABOLIC PANEL (NA, K, CL, CO2, GLUCOSE, BUN, CREATININE, CA) TROPONIN I N-TERMINAL PRO-BNP EKG: If EKG completed, see Procedure Note. Orders and Treatments: Orders Placed This Encounter Procedures XR CHEST 1 VW Cbc with Diff Basic Metabolic Panel (NA, K, CL, CO2, GLUCOSE, BUN, CREATININE, CA) Troponin I N-Terminal Pro-Bnp ABG+COOX+NA+K+GLU+CA2+ Orders Placed This Encounter Medications dexamethasone sod phos PF injection 10 mg magnesium sulfate in water 2 gram/50 mL (4 %) infusion 2 g ipratropium-albuteroL (DUONEB) 0.5 mg-3 mg(2.5 mg base)/3 mL nebulizer solution 6 mL montelukast (SINGULAIR) tablet 10 mg ipratropium-albuteroL (DUONEB) 0.5 mg-3 mg(2.5 mg base)/3 mL nebulizer solution 6 mL terbutaline (BRETHINE) injection 0.25 mg ipratropium-albuteroL (DUONEB) 0.5 mg-3 mg(2.5 mg base)/3 mL nebulizer solution 6 mL dextromethorphan-guaifenesin (ROBITUSSIN DM) 10-100 mg/5 mL solution 10 mL NaCl 0.9% (NS) bolus infusion 1,000 mL doxycycline hyclate (Vibramycin) capsule 200 mg First Provider Eval: ED Events Date/Time Event User Comments 10/25/231554 Medical Screening Begins JULIETA YING MD -- 10/25/231554 First Provider Evaluation JULIETA YING MD -- ED COURSE Patient's condition improved with the treatment provided in the ED, but he was not well enough to be discharged home, so I discussed the case with the Hospitalist at [facility], who agreed to admit him to the Hospital for further evaluation and treatment. Diagnosis/Impression as of 10/25/232047 COPD with acute exacerbation Procedures: Procedures MDM: Medical Decision Making Problems Addressed: COPD with acute exacerbation: chronic illness or injury with severe exacerbation, progression, or side effects of treatment that poses a threat to life or bodily functions Amount and/or Complexity of Data Reviewed External Data Reviewed: labs, radiology and notes. Details: From previous visits reviewed and compared with current data Labs: ordered. Decision-making details documented in ED Course. Radiology: ordered and independent interpretation performed. Decision-making details documented in ED Course. Discussion of management or test interpretation with external provider(s): Case discussed with Dr Hdez, Hospitalist at [facility], who agree to accept him as transfer for further evaluation and treatment. Risk OTC drugs. Prescription drug management. Decision regarding hospitalization. Flowsheet Documentation: Scoring Tools: No data recorded Disposition/Condition: ED Disposition ED Disposition Transfer - [facility] to IP/Obs Condition -- Comment -- Discharge Medications: Patient's Medications START taking these medications No medications on file CONTINUE taking these medications which have NOT CHANGED CLOPIDOGREL 75 MG TABLET Take 1 tablet by mouth in the morning. GUAIFENESIN 400 MG TABLET Take 1 tablet by mouth every 4 (four) hours as needed for Cough. IPRATROPIUM-ALBUTEROL 0.5 MG-3 MG(2.5 MG BASE)/3 ML NEBULIZER SOLUTION Inhale 3 mL every 4 (four) hours as needed for Wheezing or Shortness of Breath. NON-FORMULARY MEDICATION OXYGEN PRAMIPEXOLE 0.125 MG TABLET Take 1 tablet by mouth at bedtime for 30 days. PREDNISONE 20 MG TABLET Take 2 tablets by mouth daily for 4 days, THEN 1 tablet daily for 4 days, THEN 0.5 tablets daily for 4 days. START taking Modified Medications as Prescribed No medications on file STOP taking these medications No medications on file Follow-up: Electronically signed by: Julieta Ying MD 10/25/232047 [facility] 2023-10-25 13:28:54 Pss please reach out to patient for post hospitalization appointment to address prescription for appetite stimulant. Pt returning call. MANAS discussed recent hospitalization with the pt. The reports coughing up green phlegm. MANAS discussed pulmonary toileting with the pt as well as smoking cessation. The pt reports having used/tried everything to quit. The pt resides alone. The pt is using 3L via nc and is taking his prednisone and clopidogrel. CM noticed the chart mentions the pt is malnourished. The pt reports being 6ft weighing ~140lbs. The pt does not have food insecurity. He said he has decreased appetite and only eats once a day. MANAS will send a message to [facility] re: prescription for appetite stimulant, perhaps Remeron or Marinol depending on cost. The pt needs to be scheduled with Pulmonary in 2 weeks, from Discharge date 10/14/23. CM will send to Hospital Follow up Team. ARUNA Lopez, RN, [facility] Outpatient Bible TeacherMorgue LibrarianColumbus Regional Healthcare System O: [phone] M: [phone] Oliva Curran RN [facility] 2023-10-16 15:47:38 TRANSITIONAL CARE MANAGEMENT ASSESSMENT 10/16/2023 Darwin Del Valle [id number] Darwin Del Valle is a 63 year old /White male was admitted on 10/12/23 to [facility] ICU. He was discharged on 10/14/23 with discharge disposition of HR- Routine Discharge. Admitting Physician: Ibis Hunter Discharge Diagnosis: No diagnosis information/Incomplete d/c summary No linked episodes TCM Umj-ehkr-lk-face outreach documentation: Discharge Assessment Chart Assessed: 10/16/23 TCM Outreach Completed: 10/16/23 Do you have a few minutes to speak with me about how you are doing at home?: Yes Discharge Instructions Do you understand your at-home instructions?: Yes Medications Have you filled your prescriptions and do you have them in your home? : Yes Do you know how to take your medications?: Yes Supplies Did you receive applicable home medical supplies/equipment?: N/A Follow Up Appointment Has a follow up appointment been scheduled?: No May I assist with scheduling this appointment?: Patient declined assistance Do you have any questions about your follow up appointments?: No Home Health Assistance Has the home health nurse contacted you since you've been home?: N/A Survey - Recognition Is there anything you would like to share about your recent hospitalization, or anyone you would like to recognize?: No Do you have any suggestions for improvement?: No Do you have any other questions or concerns at this time?: No Future Appointments: Marilia Jones RN [facility] 2023-10-16 12:18:20 Care Transitions Nurse MANAS made f/u call to patient post-discharge. No answer, call went to voicemail. CM left discreet message with CM's call back information. CM will try again at a later time. ARUNA Freeman, RN, CCRN [employer], Transitions of Care [email or web address] 2023-10-14 14:25:47 Problem: Falls, Risk of Goal: Absence of falls 10/14/2023 1425 by Socorro Atwood RN Outcome: Adequate for discharge 10/14/2023 1236 by Socorro Atwood RN Outcome: Progressing as expected Problem: Pain Goal: Control of pain at or below patient's documented comfort goal 10/14/2023 1425 by Socorro Atwood RN Outcome: Adequate for discharge 10/14/2023 1236 by Socorro Atwood RN Outcome: Progressing as expected Goal: Reduction in pain sensation 10/14/2023 1425 by Socorro Atwood RN Outcome: Adequate for discharge 10/14/2023 1236 by Socorro Atwood RN Outcome: Progressing as expected Problem: Venous Thromboembolism, (actual or risk of) Goal: Absence of venous thromboembolism (Risk) 10/14/2023 1425 by Socorro Atwood RN Outcome: Adequate for discharge 10/14/2023 1236 by Socorro Atwood RN Outcome: Progressing as expected Problem: Skin integrity Impaired (Risk or Actual) Goal: Wound healing 10/14/2023 1425 by Socorro Atwood RN Outcome: Adequate for discharge 10/14/2023 1236 by Socorro Atwood RN Outcome: Progressing as expected Goal: Prevention of new skin breakdown 10/14/2023 1425 by Socorro Atwood RN Outcome: Adequate for discharge 10/14/2023 1236 by Socorro Atwood RN Outcome: Progressing as expected Problem: Discharge Planning Goal: Adequate for discharge 10/14/2023 1425 by Socorro Atwood RN Outcome: Adequate for discharge 10/14/2023 1236 by Socorro Atwood RN Outcome: Progressing as expected Goal: Effective communication 10/14/2023 1425 by Socorro Atwood RN Outcome: Adequate for discharge 10/14/2023 1236 by Socorro Atwood RN Outcome: Progressing as expected Problem: Respiratory Function - Impaired Goal: Able to cough effectively 10/14/2023 1425 by Socorro Atwood RN Outcome: Adequate for discharge 10/14/2023 1236 by Socorro Atwood RN Outcome: Progressing as expected Goal: Adequate oxygenation 10/14/2023 1425 by Socorro Atwood RN Outcome: Adequate for discharge 10/14/2023 1236 by Socorro Atwood RN Outcome: Progressing as expected Goal: Adequate work of breathing 10/14/2023 1425 by Socorro Atwood RN Outcome: Adequate for discharge 10/14/2023 1236 by Socorro Atwood RN Outcome: Progressing as expected Goal: Patent airway 10/14/2023 1425 by Socorro Atwood RN Outcome: Adequate for discharge 10/14/2023 1236 by Socorro Atwood RN Outcome: Progressing as expected [facility] [employer] 2023-10-14 12:37:04 Problem: Falls, Risk of Goal: Absence of falls Outcome: Progressing as expected Problem: Pain Goal: Control of pain at or below patient's documented comfort goal Outcome: Progressing as expected Goal: Reduction in pain sensation Outcome: Progressing as expected Problem: Venous Thromboembolism, (actual or risk of) Goal: Absence of venous thromboembolism (Risk) Outcome: Progressing as expected Problem: Skin integrity Impaired (Risk or Actual) Goal: Wound healing Outcome: Progressing as expected Goal: Prevention of new skin breakdown Outcome: Progressing as expected Problem: Discharge Planning Goal: Adequate for discharge Outcome: Progressing as expected Goal: Effective communication Outcome: Progressing as expected Problem: Respiratory Function - Impaired Goal: Able to cough effectively Outcome: Progressing as expected Goal: Adequate oxygenation Outcome: Progressing as expected Goal: Adequate work of breathing Outcome: Progressing as expected Goal: Patent airway Outcome: Progressing as expected [facility] [employer] 2023-10-13 09:24:55 Problem: Falls, Risk of Goal: Absence of falls Outcome: Progressing as expected Problem: Pain Goal: Control of pain at or below patient's documented comfort goal Outcome: Progressing as expected Goal: Reduction in pain sensation Outcome: Progressing as expected Problem: Venous Thromboembolism, (actual or risk of) Goal: Absence of venous thromboembolism (Risk) Outcome: Progressing as expected Problem: Skin integrity Impaired (Risk or Actual) Goal: Wound healing Outcome: Progressing as expected Goal: Prevention of new skin breakdown Outcome: Progressing as expected Problem: Discharge Planning Goal: Adequate for discharge Outcome: Progressing as expected Goal: Effective communication Outcome: Progressing as expected Problem: Respiratory Function - Impaired Goal: Able to cough effectively Outcome: Progressing as expected Goal: Adequate oxygenation Outcome: Progressing as expected Goal: Adequate work of breathing Outcome: Progressing as expected Goal: Patent airway Outcome: Progressing as expected [facility] 2023-10-13 03:41:19 Patient admitted to [facility] ICU for diagnosis of dyspnea and COPD exacerbation Patient agrees to admission, discussed plan of care with patient and family. Patient is awake, alert, oriented, resp reg unlabored, color appropriate for race, PIV intact No adverse reaction to medications administered while in ED Belongings with patient to unit Report to ALMA Vanegas Mary Meredith RN [facility] 2023-10-13 00:51:42 Report handoff given to ALMA Hunt Juliane Slaughter RN [facility] 2023-10-12 22:29:26 Patient arrived ambulatory to ED c/o SOB that started around noon today. Patient is on 3L [place] home O2. Hx of COPD. Last Duoneb was about 45 minutes ago. Oxygen tubing changed during triage. Smokes about a pack a week. Ann Valle RN [facility] - Health 2023-10-12 22:26:00 Associated Order(s): EKG-12 Lead ROUTINE ONCE Pre-Procedure Diagnose(s): Dyspnea, unspecified type Post-Procedure Diagnose(s): Dyspnea, unspecified type [facility] Emergency Department Note Patient Name: Darwin Del Valle Date of : 1960 63 year old male Treatment Room: AL3/AL3 Primary Care Physician: Betty Schmitz Patient Escorted by: Self [9] Mode of Arrival: Personal means [1] EMS Treatment Prior to ED Arrival: Travel and Exposure Screening: Symptoms Does patient have any of these symptoms?: (not recorded) Exposure Screening Has patient had contact with someone with a communicable disease in the last month?: (not recorded) Diseases exposed to:: (not recorded) Is Patient ?: (not recorded) Exposure Date: (not recorded) Chief Complaint: Chief Complaint Patient presents with Shortness of Breath History of Present Illness: 63 year old male with hx of PAD, COPD, comes in with increased shortness of breath since 12:00 noon. States that shortness of breath is constant has been worsening, states he gets intermittent chest pain when coughing. Denies any fever denies any dizziness, patient is on chronic 3 L of oxygen, still smokes, denies any nausea vomiting or diarrhea no abdominal pain. Denies alcohol or drugs History provided by: Patient and medical records physician assistant used: No Past Medical History/Immunizations: Past Medical History: Diagnosis Date COPD (chronic obstructive pulmonary disease) Tobacco consumption Allergies: Allergies Allergen Reactions Codeine Nausea and/or Vomiting and Unknown - See comments Protamine Other - See comments Hypotension and bradycardia Past Social History: Tobacco Use Every Day; Cigarettes: Started 06/17/1969; Last attempted to quit 06/17/2019; Smoked an average of 0.5 packs/day for 50.0 years Passive Exposure: Current Smokeless Tobacco: Never used smokeless tobacco. Vaping Use Never used Alcohol Use Yes. Comments: social Drug Use Never. Past Surgical History: Past Surgical History: Procedure Laterality Date ANGIOGRAM VIA LOWER EXTREMITY ACCESS (SHX) Right 07/22/2021 Surgeon: Fuentes Cabrera MD; Location: [facility] OR LOCATION ANGIOPLASTY Right 07/23/2023 Surgeon: Gilbert Rodríguez MD; Location: [facility] OR LOCATION ARTERIOGRAM Right 07/23/2023 Surgeon: Gilbert Rodríguez MD; Location: [facility] OR LOCATION CHOLECYSTECTOMY LAPAROSCOPY WITH CHOLANGIOGRAM (SHX) N/A 05/16/2023 Surgeon: Sabrina Villareal MD; Location: [facility] OR LOCATION FEMORAL ENDARTERECTOMY Right 04/03/2023 Surgeon: Gilbert Rodríguez MD; Location: [facility] OR LOCATION HERNIA REPAIR TOE AMPUTATION Right 07/26/2021 Surgeon: Onel Segundo DPM; Location: [facility] OR LOCATION TOE AMPUTATION Right 5th digit Rt foot VASCULAR STENTING Right 07/23/2023 Surgeon: Gilbert Rodríguez MD; Location: [facility] OR LOCATION Review of Systems: Review of Systems Constitutional: Negative for fever. HENT: Negative. Eyes: Negative. Respiratory: Positive for cough, chest tightness, shortness of breath and wheezing. Cardiovascular: Positive for chest pain. Negative for palpitations and leg swelling. Gastrointestinal: Negative. Genitourinary: Negative. Musculoskeletal: Negative. Skin: Negative. Neurological: Negative. Psychiatric/Behavioral: Negative for confusion. All other systems reviewed and are negative. Physical Exam: ED Triage Vitals Weight Actual or estimated Height BP Pulse Resp Temp Temp src SpO2 Measured on Physical Exam Vitals and nursing note reviewed. Constitutional: General: He is in acute distress. Appearance: He is not ill-appearing or toxic-appearing. Comments: Alert and interactive, positive increased work of breathing and tachypnea, mild respiratory distress, no diaphoresis, oriented x 3 HENT: Head: Normocephalic. Nose: Nose normal. Mouth/Throat: Pharynx: Oropharynx is clear. Eyes: General: No scleral icterus. Cardiovascular: Rate and Rhythm: Normal rate and regular rhythm. Heart sounds: Normal heart sounds. Pulmonary: Effort: Respiratory distress present. Breath sounds: No stridor. Wheezing present. No rhonchi or rales. Comments: Positive tachypnea positive increased work of breathing, decreased breath sounds throughout positive expiratory wheeze in all lung welsh, no retractions or secondary muscle use Abdominal: Palpations: Abdomen is soft. Tenderness: There is no abdominal tenderness. There is no right CVA tenderness or left CVA tenderness. Musculoskeletal: General: Normal range of motion. Cervical back: Normal range of motion. Skin: General: Skin is warm. Neurological: General: No focal deficit present. Mental Status: He is alert and oriented to person, place, and time. Psychiatric: Thought Content: Thought content normal. Radiology: No orders to display Lab Results: Lab Results - No data to display EKG: If EKG completed, see Procedure Note. Orders and Treatments: No orders of the defined types were placed in this encounter. No orders of the defined types were placed in this encounter. First Provider Eval: ED Events Date/Time Event User Comments 10/12/232231 Medical Screening Begins NAKUL ORTIZ MD -- 10/12/232231 First Provider Evaluation NAKUL ORTIZ MD -- ED COURSE ED Course as of 10/12/232322Oct 12, [id number] Patient endorsed to Dr Delacruz pending labs, duoneb and reassessment, patient with moderate to severe COPD exacerbation, slowly improving with meds. [CD] 2305 Patient reassessed, patient states his breathing feels mildly improved, on reexamination patient with slower respiratory rate, increased airflow and increased wheezing signifying increased flow and now with a prolonged expiratory phase, will give another treatment and reassess [CD] 2301 Chest x-ray interpreted by myself, severe emphysematous changes, no acute cardiopulmonary pathology [CD] 2300 LACTIC ACID WHOLE BLOOD: 1.29 Severe systemic infection less likely [CD] 2232 63 year old male with hx of PAD, COPD, comes in with increased shortness of breath since 12:00 noon. States that shortness of breath is constant has been worsening, states he gets intermittent chest pain when coughing. Denies any fever denies any dizziness, patient is on chronic 3 L of oxygen, still smokes, denies any nausea vomiting or diarrhea no abdominal pain. Denies alcohol or drugs Differential includes but not limited to COPD, pneumonia, pleural effusion, COVID, flu, viral, ACS, HERMELINDA, electrolyte abnormalities, CHF Plan is breathing treatment, steroids, x-ray, labs monitor and reassessment. Patient understands and agrees with plan [CD] ED Course User Index [CD] Nakul Ortiz MD Diagnosis/Impression as of 10/12/232322 Dyspnea, unspecified type Chronic obstructive pulmonary disease with acute exacerbation Procedures: EKG-12 Lead ROUTINE ONCE Date/Time: 10/12/2023 10:56 PM Performed by: Nakul Ortiz MD Authorized by: Nakul Ortiz MD ECG interpreted by ED Physician in the absence of a sanding machine tender automatic: yes Previous ECG: Previous ECG: Compared to current Similarity: No change Comparison ECG info: 05/10/2023 Interpretation: Interpretation: abnormal Rate: ECG rate: 95 ECG rate assessment: normal Rhythm: Rhythm: sinus rhythm Ectopy: Ectopy: none QRS: QRS axis: Normal QRS intervals: Normal QRS conduction: non-specific conduction delay ST segments: ST segments: Non-specific T waves: T waves: non-specific Q waves: Abnormal Q-waves: not present Other findings: Other findings comment: [facility] MDM: Medical Decision Making See ED course for MDM Problems Addressed: Chronic obstructive pulmonary disease with acute exacerbation: acute illness or injury Dyspnea, unspecified type: acute illness or injury Amount and/or Complexity of Data Reviewed External Data Reviewed: ECG and notes. Labs: ordered. Decision-making details documented in ED Course. Radiology: ordered and independent interpretation performed. Decision-making details documented in ED Course. ECG/medicine tests: ordered and independent interpretation performed. Decision-making details documented in ED Course. Details: See procedure note Risk Prescription drug management. Flowsheet Documentation: Scoring Tools: No data recorded Disposition/Condition: ED Disposition None Discharge Medications: Patient's Medications START taking these medications No medications on file CONTINUE taking these medications which have NOT CHANGED CLOPIDOGREL 75 MG TABLET Take 1 tablet by mouth in the morning. IPRATROPIUM-ALBUTEROL 0.5 MG-3 MG(2.5 MG BASE)/3 ML NEBULIZER SOLUTION Inhale 3 mL every 4 (four) hours as needed for Wheezing or Shortness of Breath. IPRATROPIUM-ALBUTEROL 0.5 MG-3 MG(2.5 MG BASE)/3 ML NEBULIZER SOLUTION Inhale 3 mL every 4 (four) hours as needed for Wheezing or Shortness of Breath. NON-FORMULARY MEDICATION OXYGEN START taking Modified Medications as Prescribed No medications on file STOP taking these medications No medications on file Follow-up: Electronically signed by: Nakul Ortiz MD 10/12/232322 T [facility] 2023-10-12 22:26:00 AdmissionCare Guideline: COPD - OBS, Observation Based on the indications selected for the patient, the bed status of Observation was determined to be MET The following indications were selected as present at the time of evaluation of the patient: - Observation Care Admission Criteria - Observation care is indicated for 1 or more of the following: - New or worsened (eg, from baseline) signs or symptoms of COPD (eg, dyspnea, Tachypnea) AdmissionCare documentation entered by: Elsie Ramos [facility], 28th edition, Copyright ? 2023 [email or web address] All Rights Reserved. [id number]:08-05:00 T [facility] EM[employer]GENC[facility] PHYSICIAN STAFF [facility] 2023-09-13 16:13:47 Medication refilled per policy: Last office visit: 06/21/23 Next office visit: Not scheduled Requested Prescriptions Pending Prescriptions Disp Refills ipratropium-albuteroL 0.5 mg-3 mg(2.5 mg base)/3 mL nebulizer solution 540 mL 2 Sig: Inhale 3 mL every 4 (four) hours as needed for Wheezing or Shortness of Breath. Notes: Chronic obstructive pulmonary disease with acute exacerbation [facility] 2023-09-13 16:10:18 You may reorder. Have him conitnue care with Ceramic Engineer. T [facility] 2023-09-13 14:23:26 Patient is requesting that RX for pratropium-albuteroL 0.5 mg-3 mg(2.5 mg base)/3 mL nebulizer solution be resent to pharmacy and revised so that he receives 1 box (120 vials) per week. He states was previously prescribed 540ml. Patient also reports that he is using nebulizer soln every 4-6 hours daily. Please review and advise. [facility] 2023-09-12 12:29:03 Copied from [facility] #[id number]. Topic: Clinical - Medical Advice >> September 12, 2023 12:28 PM Patient Superintendent [employer] wrote: Pt is following up from yesterday call about script being incorrect and would like to talk to nurse or pcp. Pt states called pharmacy yesterday and states it is still wrong. 540 units and says got 1 box only. Trang Storey [facility] 2023-09-11 16:45:39 Copied from [facility] #[id number]. Topic: Clinical - Medical Advice >> September 11, 2023 4:42 PM Patient Superintendent [employer] wrote: Pt is needing to speak to nurse in regards to his ipratropium-albuteroL 0.5 mg-3 mg(2.5 mg base)/3 mL nebulizer solution. Pt states needs 560 units due to you using daily 6 a day. Contact pt will explain more in detail. One box last him a week. [facility] is [facility] for correct dosage. [facility] 2023-08-27 14:21:55 Darwin Del Valle is a 63 year old male Pt called wanting to check updates regarding med prescription being incorrect. Please advise [phone] (home) [facility]/pharmacy #[id number] - [place], [place] - [address] [facility] [facility] [facility] [address] [facility] [address] Alcira Kenyon [facility] 2023-08-23 14:39:44 Pharmacy comment: Script Clarification:PRESCRIPTION WAS WRITTEN INCORRECTLY..PLEASE RESEND FOR 6 BOXES..WHICH WOULD BE 540 ML..PLEASE AND THANKS.. Ria Rodrigues LVN [facility] 2023-08-21 13:35:01 Please review and fill if appropriate. Last Refilled: Disp Refills Start End MORGAN ipratropium-albuteroL 0.5 mg-3 mg(2.5 mg base)/3 mL nebulizer solution -- -- 06/11/2023 -- -- Sig: Inhale 3 mL every 4 (four) hours as needed for Wheezing or Shortness of Breath. Class: Historical Med Route: Inhalation Order: [id number] Date/Time Signed: 07/20/2023 12:29 Notes: office visit 05/28/23 Assessment/Plan Hospitalization within last 30 days (primary encounter diagnosis) Other form of dyspnea Acute exacerbation of chronic obstructive pulmonary disease (COPD) Comment: chronic Plan: please add concentrator Recent Visits Date Type Provider Dept 06/21/23 Office Visit Steven Morales MD [facility] 05/28/23 Office Visit Betty Schmitz FNP [facility] 05/07/23 Office Visit Betty Schmitz FNP [facility] 03/20/23 Office Visit Steven Morales MD [facility] 02/21/23 Office Visit Sherita Magaña PA [facility] 02/19/23 Office Visit Betty Schmitz FNP [facility] 10/24/22 Office Visit Betyt Schmitz FNP [facility] 05/23/22 Office Visit Leonela Coppola FNP [facility] Showing recent visits within past 540 days with a meds authorizing provider and meeting all other requirements Future Appointments Date Type Provider Dept 09/04/23 Appointment Betty Schmitz FNP [facility] Showing future appointments within next 150 days with a meds authorizing provider and meeting all other requirements Oliva Curran RN [facility] 2023-08-21 12:14:29 Copied from [facility] #[id number]. Topic: Clinical - Order >> Aug 21, 2023 12:13 PM Patient Superintendent [employer] wrote: Pt is requesting a refill scripts for ipratropium-albuteroL 0.5 mg-3 mg(2.5 mg base)/3 mL nebulizer solution and would [facility] [place]. Trang Storey [facility] 2023-07-26 10:41:[address] Rodríguez patient to resume plavix. Patient notified of results/recommendations, understanding was verbalized via teach back. Beverly Silva RN [facility] 2023-07-25 14:23:02 Copied from [facility] #[id number]. Topic: Clinical - Medical Advice >> Jul 25, 2023 2:22 PM Patient Superintendent [employer] wrote: Pt is calling to fu on clarification on taking plavix Modesta Wakefield V [facility] 2023-07-24 14:59:50 Spoke with patient, aware message has been sent to provider for clarification on plavix. Patient state she was taking plavix prior to surgery and wants to know if he can resume or should wait until November. Beverly Silva RN [facility] 2023-07-24 13:48:11 Darwin Del Valle is a 63 year old male Pt requesting clarification on medication clopidogreL 75 mg tablet, medication is listed to start 12/10/23 and stop 12/09/24. Please call pt back at [phone], no back line for [facility] Suzette Carreon [facility] 2023-07-19 13:00:00 Addended by: GILBERT RODRÍGUEZ MD on: 07/19/2023 05:01 PM Modules accepted: Orders [facility] 2023-06-12 10:09:29 Images from the original note were not included. Notes: Per insurance 90 day supply sent in Last Refilled: Name from pharmacy: TAMSULOSIN HCL 0.4 MG CAPSULE Will file in chart as: TAMSULOSIN 0.4 mg 24 hr capsule Possible duplicate: Hover to review recent actions on this medication Sig: TAKE 1 CAPSULE BY MOUTH EVERY MORNING Disp: 90 capsule Refills: 1 Start: 06/12/2023 Class: eRX For: Dribbling of urine, Urinary hesitancy Last ordered: 2 weeks ago (05/28/2023) by AFSANEH Winchester Rx #: [id number] Pharmacy comment: REQUEST FOR 90 DAYS PRESCRIPTION. Urology: Benign Prostatic Hyperplasia Gflbyz3606/12/2023 09:45 AM Protocol Details Valid encounter within last 12 months This request has changes from the previous prescription. To be filled at: [facility]/pharmacy #[id number] [facility] [address] [place] [address] Recent Visits Date Type Provider Dept 05/28/23 Office Visit Betty Schmitz FNP [facility] 05/07/23 Office Visit Betty Schmitz FNP [facility] 03/20/23 Office Visit Steven Morales MD [facility] 02/21/23 Office Visit Sherita Magaña PA [facility] 02/19/23 Office Visit Betty Schmitz FNP [facility] 10/24/22 Office Visit Betty Schmitz FNP [facility] 05/23/22 Office Visit Cotta, Leonela, PATCHING MACHINE OPERATOR [facility] Showing recent visits within past 540 days with a meds authorizing provider and meeting all other requirements Future Appointments No visits were found meeting these conditions. Showing future appointments within next 150 days with a meds authorizing provider and meeting all other requirements [facility] 2023-06-12 09:28:19 DO not see the Ipratropium on active list, last ordered was 04/19/2023. [facility] 2023-06-11 15:04:24 Darwin Del Valle is a 63 year old male Pt is calling in stating he needs ipratropium bromide nasal spray & Albuterol ordered. Please advise PT HAS ENOUGH MEDICINE FOR [address] [facility]/pharmacy #[id number] - [place], [place] - [address] [address] [place] [facility] 2023-06-07 18:34:20 Spoke with patient. DC warfarin. DC INR checks PLT count is fine Start clopidogrel 75mg daily [facility] 2023-06-07 14:02:34 Spoke with patient, aware message has been sent to provider and is awaiting provider recommendations. Patient also concerned that his PLT are elevated from 06/04/23 lab work PLT: [address] [facility] Beverly Silva RN [facility] 2023-06-07 13:51:14 Darwin Del Valle is a 63 year old male Patient calling back to inform provider of his INR levels dropping and asking if should continue taking his Warfarin - please advise and F/U with patient NCT PHYSICS INSTRUCTOR Brianna Stroud [facility] 2023-06-07 13:35:50 Patient notified of results/recommendations, understanding was verbalized via teach back. Silva RN [facility] 2023-06-07 10:27:54 Attempted to contact patient with no answer, Voicemail left at this time with clinic phone number and instructed patient to return call. Silva RN [facility] 2023-06-07 09:48:35 Lets try an ultrasound instead then. Thank you! [facility] STEPHY-SURGERY STAFF [facility] 2023-06-07 09:47:35 Lets do an ultrasound then instead. [facility] 2023-06-07 08:13:33 Routed to provider for notification. Last INR reported 0.9 - looks like baseline has been 1.0- 1.1 Patient states he never started taking eliquis because it cost too much. Patient states he is taking warfarin 2.5 mg daily that he got prescribed from the hospital 05/16/23. Will route to provider for recommendations. [facility] 2023-06-06 15:52:12 Pt wanted to notify provider that per PCP- INR #'S are dropping. Please advise. NCT PHYSICS INSTRUCTOR Gisele Potter [facility] 2023-06-06 13:15:35 Dr. Villareal ordered MRI for pt. Pt calling today stating radiology told him he would have to lay still for 30-40 minutes to do this test and he is unable to do so with his COPD. Please advise on other options. NCT PHYSICS INSTRUCTOR Giovanna Serrano [facility] 2023-06-04 14:00:00 Images from the original note were not included. Venipuncture collection performed by clean technique on the right anticubitus. Total of 1 attempts were made. Slight pressure and a bandage/dressing were applied to the site(s). The patient experienced no complications. The following specimens were processed according to instructions and sent to [facility] laboratories per lab order on 06/04/2023 : LT BLUE 1 SST 1 RED LAV 1 PPT DK GREEN (LiHep) DK GREEN (SodH) PACK DK BLUE (K2) DK BLUE (S) ACD Blood Culture NIPT/NTD [facility] 2023-06-04 13:15:00 Addended by: SABRINA VILLAREAL MD on: 06/04/2023 03:23 PM Modules accepted: Orders [facility] 2023-05-28 11:30:00 Images from the original note were not included. Venipuncture collection performed by clean technique on the left anticubitus. Total of 1 attempts were made. Slight pressure and a bandage/dressing were applied to the site(s). The patient experienced no complications. The following specimens were processed according to instructions and sent to [facility] laboratories per lab order on 05/28/2023 : LT BLUE 1 SST 2 RED LAV PPT DK GREEN (LiHep) DK GREEN (SodH) PACK DK BLUE (K2) DK BLUE (S) ACD Blood Culture NIPT/NTD [facility] 2023-05-21 13:47:49 TRANSITIONAL CARE MANAGEMENT ASSESSMENT 05/21/2023 Darwin Del Valle [id number] Darwin Del Valle is a 63 year old /White male was admitted on 05/11/23 to [facility], [facility] MED SURG. He was discharged on 05/18/23 with discharge disposition of HR- Routine Discharge. Admitting Physician: Kedar Madera Discharge Diagnosis: AE COPD w/ acute on chronic respiratory failure Acute Cholecystitis PAD Hx DVT Procedure: Laparoscopic cholecystectomy (CPT 11213) Linked Episodes Type: Episode: Status: Noted: Resolved: Last update: Updated by: TRANSITION OF CARE TCM Active 05/21/2023 05/21/2023 9:39 AM Jasmine Doshi RN Comments: TCM [id number]-[id number] outreach documentation: Discharge Assessment Chart Assessed: 05/21/23 Future Appointments: Future Appointments Provider Department Dept Phone 05/28/2023 11:00 AM Betty Schmitz FNP [facility] [phone] 05/31/2023 3:00 PM Gilbert Rodríguez MD [facility] [phone] 06/04/2023 1:15 PM Sabrina Villareal MD [facility] [phone] 09/03/2023 10:30 AM Amie Shen DO [facility] [phone] Transition CM attempted to contact patient x2. CM left a discreet voicemail explaining purpose of call and call back information. 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 Will attempt again at a later time. NCT PHYSICS INSTRUCTOR [facility] 2023-05-18 11:22:36 Problem: Falls, Risk of Goal: Absence of falls Outcome: Adequate for discharge Problem: Pain Goal: Control of pain at or below patient's documented comfort goal Outcome: Adequate for discharge Goal: Reduction in pain sensation Outcome: Adequate for discharge Problem: Skin integrity Impaired (Risk or Actual) Goal: Wound healing Outcome: Adequate for discharge Goal: Prevention of new skin breakdown Outcome: Adequate for discharge Problem: Discharge Planning Goal: Adequate for discharge Outcome: Adequate for discharge Goal: Effective communication Outcome: Adequate for discharge Problem: Respiratory Function - Impaired Goal: Able to cough effectively Outcome: Adequate for discharge Goal: Adequate oxygenation Outcome: Adequate for discharge Goal: Adequate work of breathing Outcome: Adequate for discharge Goal: Patent airway Outcome: Adequate for discharge NCT PHYSICS INSTRUCTOR Mariola Pichardo RN [facility] 2023-05-18 01:03:21 Problem: Falls, Risk of Goal: Absence of falls Outcome: Progressing as expected Problem: Pain Goal: Control of pain at or below patient's documented comfort goal Outcome: Progressing as expected Goal: Reduction in pain sensation Outcome: Progressing as expected Problem: Skin integrity Impaired (Risk or Actual) Goal: Wound healing Outcome: Progressing as expected Goal: Prevention of new skin breakdown Outcome: Progressing as expected Problem: Discharge Planning Goal: Adequate for discharge Outcome: Progressing as expected Goal: Effective communication Outcome: Progressing as expected Problem: Respiratory Function - Impaired Goal: Able to cough effectively Outcome: Progressing as expected Goal: Adequate oxygenation Outcome: Progressing as expected Goal: Adequate work of breathing Outcome: Progressing as expected Goal: Patent airway Outcome: Progressing as expected Ocampo RN [facility] 2023-05-17 17:52:00 Problem: Falls, Risk of Goal: Absence of falls Outcome: Progressing as expected Problem: Pain Goal: Control of pain at or below patient's documented comfort goal Outcome: Progressing as expected Goal: Reduction in pain sensation Outcome: Progressing as expected Problem: Skin integrity Impaired (Risk or Actual) Goal: Wound healing Outcome: Progressing as expected Goal: Prevention of new skin breakdown Outcome: Progressing as expected Problem: Discharge Planning Goal: Adequate for discharge Outcome: Progressing as expected Goal: Effective communication Outcome: Progressing as expected Problem: Respiratory Function - Impaired Goal: Able to cough effectively Outcome: Progressing as expected Goal: Adequate oxygenation Outcome: Progressing as expected Goal: Adequate work of breathing Outcome: Progressing as expected Goal: Patent airway Outcome: Progressing as expected [facility] 2023-05-17 03:44:51 Problem: Falls, Risk of Goal: Absence of falls Outcome: Progressing as expected Problem: Pain Goal: Control of pain at or below patient's documented comfort goal Outcome: Progressing as expected Goal: Reduction in pain sensation Outcome: Progressing as expected Problem: Skin integrity Impaired (Risk or Actual) Goal: Wound healing Outcome: Progressing as expected Goal: Prevention of new skin breakdown Outcome: Progressing as expected Problem: Discharge Planning Goal: Adequate for discharge Outcome: Progressing as expected Goal: Effective communication Outcome: Progressing as expected Problem: Respiratory Function - Impaired Goal: Able to cough effectively Outcome: Progressing as expected Goal: Adequate oxygenation Outcome: Progressing as expected Goal: Adequate work of breathing Outcome: Progressing as expected Goal: Patent airway Outcome: Progressing as expected Higgins RN [facility] 2023-05-16 19:30:16 Problem: Falls, Risk of Goal: Absence of falls Outcome: Progressing as expected Problem: Pain Goal: Control of pain at or below patient's documented comfort goal Outcome: Progressing as expected Goal: Reduction in pain sensation Outcome: Progressing as expected Problem: Skin integrity Impaired (Risk or Actual) Goal: Wound healing Outcome: Progressing as expected Goal: Prevention of new skin breakdown Outcome: Progressing as expected Problem: Discharge Planning Goal: Adequate for discharge Outcome: Progressing as expected Goal: Effective communication Outcome: Progressing as expected Problem: Respiratory Function - Impaired Goal: Able to cough effectively Outcome: Progressing as expected Goal: Adequate oxygenation Outcome: Progressing as expected Goal: Adequate work of breathing Outcome: Progressing as expected Goal: Patent airway Outcome: Progressing as expected NCT PHYSICS INSTRUCTOR Mica Jacob RN [facility] 2023-05-16 09:42:00 FULL OPERATIVE NOTE Date of Surgery: 05/16/2023 Preoperative diagnosis: Gallstone pancreatitis Postoperative diagnosis: Same Procedure: Laparoscopic cholecystectomy (CPT 49959) Surgeons: Faculty: Sabrina Villareal MD Resident: Silvina Ghosh MD (PGY2) Anesthesiologist: Hailee Friedman CRNA, MD Anesthesia: General endotracheal intubation EBL: 15 mL Sponge, needle, and instrument count: Correct at the end of the case X2 Packs, drains: None Specimen: Gallbladder Findings: Chronically inflamed gallbladder with several calculi in the gallbladder and in the cystic duct. The cystic duct appeared dilated approximately 10 mm with small gravel like stones in the cystic duct. Complications: None Indications: Darwin Del Valle is a 63 year old male who presented with abdominal pain. Workup was consistent with gallstone pancreatitis as well as acute on chronic COPD exacerbation. Patient was admitted and treated for COPD exacerbation and pancreatitis. Once his pancreatitis had resolved, cholecystectomy with planned IOC was discussed with patient. Diagnosis and treatment options were discussed with the patient, the patient wished to proceed with surgery. Procedure: Th patient was brought to the operating room and placed in supine position. General anesthesia was induced and patient tolerated intubation. The abdomen was preped and draped in the usual sterile fashion. A time out was performed - confirming the correct patient, procedure and antibiotics. The abdomen was entered through a Cris cutdown at the umbilical site. The fascia was elevated and incised. A finger sweep was performed to ensure no adhesions against the abdominal wall. A Cris port was placed and the abdomen was insufflated to 15 mmHg. Patient tolerated insufflation. A laparoscope was placed through the Cris port and a brief examination was performed. There were no injury from our cut down approach. The patient was then placed in the reverse Trendelenburg position and rotated to the left. An 5 mm port was placed in the subxiphoid region at the midline and two 5 mm port below the right costal margin in the mid clavicular and anterior axillary lines, all under direct vision and after the use of 0.25% Marcaine with epinephrine. The gallbladder was retracted superiorly over the liver and the infundibulum retracted laterally. Immediately we encountered dense adhesions from the duodenum and the gallbladder. The adhesions were taken down carefully with bovie electrocautery and blunt dissection. Blunt dissection with a [place] dissector was performed to identify the cystic duct and cystic artery. Both the cystic duct and cystic artery were readily identified, dissected, and skeletonized using the [place] dissector. The critical view was obtained - there were only two structures entering the gallbladder and the lower 1/3 of the gallbladder was dissected off the liver. The cystic duct was noted to be about 10 mm and dilated. There was soft small stones that can be seen through the distended cystic duct. At this time, we decided not to proceed with the cholangiogram as there was several stones in the cystic duct based on appearance. Because of the dilation of the cystic duct, we decided to transect the cystic artery and use endo-loops for the cystic duct. Three clips were placed across the cystic artery, with two remaining on the cystic artery remnant. The cystic artery was then divided with laparoscopic scissors. The gallbladder was then dissected from the gallbladder fossa using electrocautery. I did get into the gallbladder and had gross spillage of stone and intraabdominal. The gallbladder was then placed in an endoscopic retrieval bag and removed via the umbilical site. The gallbladder was passed of the sterile field as a surgical specimen. The patient's right upper quadrant was then examined and the spilled stones were broken up and suctioned out of the abdomen. The liver had some bleeding from the prior adhesions that we took down. Hemostasis was achieved with electrocautery and Sana hemostatic agent was placed in the gallbladder fossa and where the adhesions had torn off some of the liver capsule. The two endoloops across the cystic duct was then placed and the gallbladder was transected off the cystic duct. I re-examined and confirmed that the cystic duct was inside the two endo-loops. The cystic artery was also examined and there was no bleeding. The fascia of the umbilicus was closed with a 0-Vicryl in simple interrupted fashion. All remaining ports were then removed under direct vision with evacuation of the pneumoperitoneum. All skin incisions were then closed using 4-0 Monocryl in a subcuticular fashion. Dermabond was applied to all skin incisions. The patient was then awakened from general anesthesia, extubated in the operating room, and then transferred to the recovery room in satisfactory condition. The counts were correct at the end of the case. The patient received no blood products. Sabrina Villareal M.D. 05/16/2023 12:08 [facility] 2023-05-16 04:54:20 Problem: Falls, Risk of Goal: Absence of falls Outcome: Progressing as expected Problem: Pain Goal: Control of pain at or below patient's documented comfort goal Outcome: Progressing as expected Goal: Reduction in pain sensation Outcome: Progressing as expected Problem: Skin integrity Impaired (Risk or Actual) Goal: Wound healing Outcome: Progressing as expected Goal: Prevention of new skin breakdown Outcome: Progressing as expected Problem: Discharge Planning Goal: Adequate for discharge Outcome: Progressing as expected Goal: Effective communication Outcome: Progressing as expected Problem: Respiratory Function - Impaired Goal: Able to cough effectively Outcome: Progressing as expected Goal: Adequate oxygenation Outcome: Progressing as expected Goal: Adequate work of breathing Outcome: Progressing as expected Goal: Patent airway Outcome: Progressing as expected [facility] 2023-05-15 00:20:22 Problem: Falls, Risk of Goal: Absence of falls Outcome: Progressing as expected Problem: Pain Goal: Control of pain at or below patient's documented comfort goal Outcome: Progressing as expected Goal: Reduction in pain sensation Outcome: Progressing as expected Problem: Skin integrity Impaired (Risk or Actual) Goal: Wound healing Outcome: Progressing as expected Goal: Prevention of new skin breakdown Outcome: Progressing as expected Problem: Discharge Planning Goal: Adequate for discharge Outcome: Progressing as expected Goal: Effective communication Outcome: Progressing as expected Problem: Respiratory Function - Impaired Goal: Able to cough effectively Outcome: Progressing as expected Goal: Adequate oxygenation Outcome: Progressing as expected Goal: Adequate work of breathing Outcome: Progressing as expected Goal: Patent airway Outcome: Progressing as expected [facility] Fley Avery RN [facility] 2023-05-14 18:02:07 Problem: Falls, Risk of Goal: Absence of falls Outcome: Progressing as expected Problem: Pain Goal: Control of pain at or below patient's documented comfort goal Outcome: Progressing as expected Goal: Reduction in pain sensation Outcome: Progressing as expected Problem: Skin integrity Impaired (Risk or Actual) Goal: Wound healing Outcome: Progressing as expected Goal: Prevention of new skin breakdown Outcome: Progressing as expected Problem: Discharge Planning Goal: Adequate for discharge Outcome: Progressing as expected Goal: Effective communication Outcome: Progressing as expected Problem: Respiratory Function - Impaired Goal: Able to cough effectively Outcome: Progressing as expected Goal: Adequate oxygenation Outcome: Progressing as expected Goal: Adequate work of breathing Outcome: Progressing as expected Goal: Patent airway Outcome: Progressing as expected [facility] 2023-05-14 00:09:06 Problem: Falls, Risk of Goal: Absence of falls Outcome: Progressing as expected Problem: Pain Goal: Control of pain at or below patient's documented comfort goal Outcome: Progressing as expected Goal: Reduction in pain sensation Outcome: Progressing as expected Problem: Skin integrity Impaired (Risk or Actual) Goal: Wound healing Outcome: Progressing as expected Goal: Prevention of new skin breakdown Outcome: Progressing as expected Problem: Discharge Planning Goal: Adequate for discharge Outcome: Progressing as expected Goal: Effective communication Outcome: Progressing as expected Problem: Respiratory Function - Impaired Goal: Able to cough effectively Outcome: Progressing as expected Goal: Adequate oxygenation Outcome: Progressing as expected Goal: Adequate work of breathing Outcome: Progressing as expected Goal: Patent airway Outcome: Progressing as expected [facility] 2023-05-13 16:44:42 Problem: Falls, Risk of Goal: Absence of falls Outcome: Progressing as expected Problem: Pain Goal: Control of pain at or below patient's documented comfort goal Outcome: Progressing as expected Goal: Reduction in pain sensation Outcome: Progressing as expected Problem: Skin integrity Impaired (Risk or Actual) Goal: Wound healing Outcome: Progressing as expected Goal: Prevention of new skin breakdown Outcome: Progressing as expected Problem: Discharge Planning Goal: Adequate for discharge Outcome: Progressing as expected Goal: Effective communication Outcome: Progressing as expected Problem: Respiratory Function - Impaired Goal: Able to cough effectively Outcome: Progressing as expected Goal: Adequate oxygenation Outcome: Progressing as expected Goal: Adequate work of breathing Outcome: Progressing as expected Goal: Patent airway Outcome: Progressing as expected [facility] Romina Galloway RN [facility] 2023-05-13 00:10:47 Problem: Falls, Risk of Goal: Absence of falls Outcome: Progressing as expected Problem: Pain Goal: Control of pain at or below patient's documented comfort goal Outcome: Progressing as expected Goal: Reduction in pain sensation Outcome: Progressing as expected Problem: Skin integrity Impaired (Risk or Actual) Goal: Wound healing Outcome: Progressing as expected Goal: Prevention of new skin breakdown Outcome: Progressing as expected Problem: Discharge Planning Goal: Adequate for discharge Outcome: Progressing as expected Goal: Effective communication Outcome: Progressing as expected Problem: Respiratory Function - Impaired Goal: Able to cough effectively Outcome: Progressing as expected Goal: Adequate oxygenation Outcome: Progressing as expected Goal: Adequate work of breathing Outcome: Progressing as expected Goal: Patent airway Outcome: Progressing as expected [facility] 2023-05-12 16:45:51 Problem: Falls, Risk of Goal: Absence of falls Outcome: Progressing as expected Problem: Pain Goal: Control of pain at or below patient's documented comfort goal Outcome: Progressing as expected Goal: Reduction in pain sensation Outcome: Progressing as expected Problem: Skin integrity Impaired (Risk or Actual) Goal: Wound healing Outcome: Progressing as expected Goal: Prevention of new skin breakdown Outcome: Progressing as expected Problem: Discharge Planning Goal: Adequate for discharge Outcome: Progressing as expected Goal: Effective communication Outcome: Progressing as expected Problem: Respiratory Function - Impaired Goal: Able to cough effectively Outcome: Progressing as expected Goal: Adequate oxygenation Outcome: Progressing as expected Goal: Adequate work of breathing Outcome: Progressing as expected Goal: Patent airway Outcome: Progressing as expected [facility] 2023-05-12 04:49:08 Problem: Falls, Risk of Goal: Absence of falls Outcome: Progressing as expected Problem: Pain Goal: Control of pain at or below patient's documented comfort goal Outcome: Progressing as expected Goal: Reduction in pain sensation Outcome: Progressing as expected Problem: Skin integrity Impaired (Risk or Actual) Goal: Wound healing Outcome: Progressing as expected Goal: Prevention of new skin breakdown Outcome: Progressing as expected Problem: Discharge Planning Goal: Adequate for discharge Outcome: Progressing as expected Goal: Effective communication Outcome: Progressing as expected Problem: Respiratory Function - Impaired Goal: Able to cough effectively Outcome: Progressing as expected Goal: Adequate oxygenation Outcome: Progressing as expected Goal: Adequate work of breathing Outcome: Progressing as expected Goal: Patent airway Outcome: Progressing as expected [facility] 2023-05-11 19:03:00 Problem: Falls, Risk of Goal: Absence of falls Outcome: Progressing as expected Problem: Pain Goal: Control of pain at or below patient's documented comfort goal Outcome: Progressing as expected Goal: Reduction in pain sensation Outcome: Progressing as expected Problem: Skin integrity Impaired (Risk or Actual) Goal: Wound healing Outcome: Progressing as expected Goal: Prevention of new skin breakdown Outcome: Progressing as expected Problem: Discharge Planning Goal: Adequate for discharge Outcome: Progressing as expected Goal: Effective communication Outcome: Progressing as expected Problem: Respiratory Function - Impaired Goal: Able to cough effectively Outcome: Progressing as expected Goal: Adequate oxygenation Outcome: Progressing as expected Goal: Adequate work of breathing Outcome: Progressing as expected Goal: Patent airway Outcome: Progressing as expected [facility] 2023-05-11 17:16:33 Nurse handoff report called for [id number], pt stable and ready to be transferred to 2217 Chahal RN [facility] 2023-05-11 15:14:41 Pt adjusting O2 flowmeter on his own, not notifying nursing staff. Pt also has removed cardiac monitoring. Pt states "I do not like the air above 2L blowing through my nose, I keep moving the air back to 2 L" Upon this RN entering room O2 NC was off of patient and in his lap. Pt placed the O2 back on his face/nares while this RN was taking vital signs. [facility] 2023-05-11 10:49:42 Patient continues to remove monitoring equipment. Jackson RN [facility] 2023-05-11 10:00:00 Patient breathing better. Pain improved. Continue to monitor patient. . [facility] 2023-05-11 08:55:26 Patient to US. [facility] 2023-05-11 03:07:15 Pt arrived ambulatory for SOB. Pt was here yesterday for same issue and refused admission. Pt on 2L home O2. 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 Pt was seen in the ED yesterday and declined ABG and signed out AMA. Pt return this AM with worsening symptoms. Pt is currently on Prednisone 30 mg and Albuterol/Atrovent nebs. Pt reports that his Oxygen supplementation 2.5:L/min but reports that he does notuse it as it does not help him. Pt is a smoker History provided by: Medical records and patient physician assistant used: No Shortness of Breath Severity: Severe Onset quality: Gradual Duration: 3 days Timing: Sporadic Chronicity: Chronic Context: not activity, not animal exposure, not emotional upset, not fumes, not known allergens, not occupational exposure, not pollens, not smoke exposure, not strong odors, not URI and not weather changes Relieved by: Nothing Worsened by: Nothing Ineffective treatments: None tried Associated symptoms: abdominal pain, fever and wheezing Associated symptoms: no chest pain, no claudication, no cough, no diaphoresis, no ear pain, no headaches, no hemoptysis, no neck pain, no PND, no rash, no sore throat, no sputum production, no syncope, no swollen glands and no vomiting Risk factors: tobacco use Risk factors: no family hx of DVT, no hx of cancer, no obesity, no prolonged immobilization and no recent surgery Past Medical History/Immunizations: Past Medical History: Diagnosis Date COPD (chronic obstructive pulmonary disease) Tobacco consumption Tetanus received in last 5 years: No Allergies: Allergies Allergen Reactions Codeine Nausea and/or Vomiting and Unknown - See comments Past Social History: Tobacco Use Former; Cigarettes: Quit 06/17/2019; 0.50 packs/day for 50.00 years Passive Exposure: Current Smokeless Tobacco: Never used smokeless tobacco. Vaping Use Never used Alcohol Use Yes. Comments: social Drug Use Never. Past Surgical History: Past Surgical History: Procedure Laterality Date ANGIOGRAM VIA LOWER EXTREMITY ACCESS (SHX) Right 07/22/2021 Surgeon: Fuentes Cabrera MD; Location: [facility] OR LOCATION FEMORAL ENDARTERECTOMY Right 04/03/2023 Surgeon: Gilbert Rodríguez MD; Location: [facility] OR LOCATION HERNIA REPAIR TOE AMPUTATION Right 07/26/2021 Surgeon: Onel Segundo DPM; Location: [facility] OR LOCATION TOE AMPUTATION Right 5th digit Rt foot Review of Systems: Review of Systems Constitutional: Positive for fever. Negative for diaphoresis. HENT: Negative. Negative for ear pain and sore throat. Eyes: Negative. Respiratory: Positive for shortness of breath and wheezing. Negative for cough, hemoptysis and sputum production. Breasts: Negative. Cardiovascular: Negative. Negative for chest pain, claudication, syncope and PND. Gastrointestinal: Positive for abdominal pain. Negative for abdominal distention, anal bleeding, blood in stool, constipation, diarrhea, nausea, rectal pain and vomiting. Genitourinary: Negative. Musculoskeletal: Negative. Negative for neck pain. Skin: Negative. Negative for rash. Neurological: Negative. Negative for headaches. Psychiatric/Behavioral: Negative. All other systems reviewed and are negative. Endocrine: Endocrine negative Physical Exam: ED Triage Vitals [05/11/23 0309] Weight 62.6 kg (138 lb) Actual or estimated Estimated by patient/family report Height 1.829 m (6') BP (!) 135/93 Pulse 86 Resp 19 Temp 36.5 ?C (97.7 ?F) Temp source Oral SpO2 97 % Measured on On oxygen Physical Exam Vitals and nursing note reviewed. Constitutional: General: He is not in acute distress. Appearance: Normal appearance. He is well-developed and normal weight. He is ill-appearing. He is not toxic-appearing or diaphoretic. HENT: Head: Normocephalic and atraumatic. Nose: Nose normal. No congestion or rhinorrhea. Mouth/Throat: Mouth: Mucous membranes are moist. Pharynx: Oropharynx is clear. Eyes: General: No scleral icterus. Right eye: No discharge. Left eye: No discharge. Extraocular Movements: Extraocular movements intact. Conjunctiva/sclera: Conjunctivae normal. Pupils: Pupils are equal, round, and reactive to light. Cardiovascular: Rate and Rhythm: Normal rate and regular rhythm. Pulses: Normal pulses. Heart sounds: Normal heart sounds. No murmur heard. Pulmonary: Effort: Pulmonary effort is normal. Breath sounds: Wheezing and rhonchi present. Abdominal: General: Bowel sounds are normal. There is no distension. Palpations: Abdomen is soft. There is no mass. Tenderness: There is abdominal tenderness. There is no right CVA tenderness, left CVA tenderness, guarding or rebound. Hernia: No hernia is present. Comments: Mild tenderness in epigastrium Musculoskeletal: General: No swelling, tenderness, deformity or signs of injury. Normal range of motion. Cervical back: Normal range of motion and neck supple. No rigidity or tenderness. Right lower leg: No edema. Lymphadenopathy: Cervical: No cervical adenopathy. Skin: General: Skin is warm and dry. Capillary Refill: Capillary refill takes less than 2 seconds. Coloration: Skin is not jaundiced or pale. Findings: No bruising, erythema, lesion or rash. Neurological: Mental Status: He is alert and oriented to person, place, and time. Cranial Nerves: No cranial nerve deficit. Sensory: No sensory deficit. Motor: No weakness. Coordination: Coordination normal. Gait: Gait normal. Deep Tendon Reflexes: Reflexes normal. Psychiatric: Behavior: Behavior normal. Thought Content: Thought content normal. Judgment: Judgment normal. Radiology: No orders to display Lab Results: Lab Results ACUTE CARE ARTERIAL BLOOD GAS - Abnormal Result Value Ref Range PH 7.41 7.35 - 7.45 PCO2 55 (*) 35 - 45 mmHg PO2 71 (*) 80 - 100 mmHg HCO3 34 (*) 22 - 26 mEq/L BE 7.2 (*) -3.0 - 3.0 mEq/L CBC WITH DIFF - Abnormal WBC 20.62 (*) 4.20 - 10.70 10*3/?L RBC 5.17 4.26 - 5.52 10*6/?L HGB 16.1 12.2 - 16.4 g/dL HCT 49.5 (*) 38.4 - 49.3 % MCV 95.7 (*) 81.7 - 95.6 fL MCH 31.1 26.1 - 32.7 pg MCHC 32.5 31.2 - 35.0 g/dL RDW-SD 52.9 (*) 38.5 - 51.6 fL RDW-CV 15.1 12.1 - 15.4 % PLT 357 (*) 150 - 328 10*3/?L MPV 10.2 9.8 - 13.0 fL NRBC/100 WBC 0.0 0.0 - 10.0 /100 WBCs NRBC x10 3 <0.01 10*3/?L GRAN MAT (NEUT) % 83.4 % IMM GRAN % 4.00 % LYMPH % 6.3 % MONO % 5.8 % EOS % 0.1 % BASO % 0.4 % GRAN MAT x10 3 (ANC) 17.20 (*) 1.99 - 6.95 10*3/uL IMM GRAN x10 3 0.82 (*) 0.00 - 0.06 10*3/uL LYMPH x10 3 1.29 1.09 - 3.23 10*3/uL MONO x10 3 1.19 (*) 0.36 - 1.02 10*3/uL EOS x10 3 0.03 (*) 0.06 - 0.53 10*3/uL BASO x10 3 0.09 0.01 - 0.09 10*3/uL REACT LYMPHS Rare COMP. METABOLIC PANEL (81324) - Abnormal NA 139 135 - 145 mmol/L K 4.1 3.5 - 5.0 mmol/L CL 98 98 - 108 mmol/L CO2 TOTAL 38 (*) 23 - 31 mmol/L AGAP 3 2 - 16 BUN 27 (*) 7 - 23 mg/dL GLUCOSE 108 70 - 110 mg/dL CREATININE 0.60 0.60 - 1.25 mg/dL TOTAL BILI 1.8 (*) 0.1 - 1.1 mg/dL CALCIUM 9.5 8.6 - 10.6 mg/dL T PROTEIN 7.5 6.3 - 8.2 g/dL ALBUMIN 4.2 3.5 - 5.0 g/dL ALK PHOS 171 (*) 34 - 122 U/L ALTv 524 (*) 5 - 50 U/L AST(SGOT) 624 (*) 13 - 40 U/L eGFR 109.1 mL/min/1.73m2 LIPASE - Abnormal LIPASE >2,000 (*) 0 - 220 U/L TROPONIN I - Normal TROPONIN I 0.005 <=0.034 ng/mL Orders and Treatments: Orders Placed This Encounter Procedures CT ABDOMEN PELVIS W CONTRAST Acute Care Arterial Blood Gas. Cbc with Diff Comp. Metabolic Panel (07295) Troponin I Lipase Orders Placed This Encounter Medications DISCONTD: methylPREDNISolone sod succ (SOLU-MEDROL (PF)) injection 40 mg DISCONTD: methylprednisolone sod succ (SOLU-MEDROL) injection 125 mg magnesium sulfate in water 2 gram/50 mL (4 %) infusion 2 g ipratropium-albuteroL (DUONEB) 0.5 mg-3 mg(2.5 mg base)/3 mL nebulizer solution 3 mL morpHINE (4 mg/mL) injection 4 mg ondansetron (ZOFRAN (PF)) injection 4 mg DISCONTD: methylprednisolone sod succ (SOLU-MEDROL) injection 125 mg ketorolac (TORADOL) injection 30 mg iopamidol (ISOVUE 370-500 mL) injection 100 mL First Provider Eval: ED Events Date/Time Event User Comments 05/11/23 031 Medical Screening Begins JUDIE GARCIA MD -- 05/11/23309 First Provider Evaluation JUDIE GARCIA MD -- ED COURSE ED Course as of 05/11/23 1320 SunMay 11, 2023 1320 Admit placed to ADC [DN] 0929 Transfer initiated with PPC [DN] ED Course User Index [DN] Elsie Ramos MD Diagnosis/Impression as of 05/11/23 1320 SOB (shortness of breath) COPD with acute exacerbation Acute pancreatitis, unspecified complication status, unspecified pancreatitis type Transaminitis Procedures: Procedures MDM: Medical Decision Making Amount and/or Complexity of Data Reviewed Labs: ordered. Radiology: ordered. Risk Prescription drug management. Parenteral controlled substances. Flowsheet Documentation: 7:09 AM Care turned over to Dr ramos at shift change pending Ct Abd/Pelvis Anticipate admission for further management Scoring Tools: No data recorded Disposition/Condition: ED Disposition None Discharge Medications: Patient's Medications START taking these medications No medications on file CONTINUE taking these medications which have NOT CHANGED ALBUTEROL-IPRATROPIUM (COMBIVENT RESPIMAT) 20-100 MCG/ACTUATION INHALER Inhale 1 Puff 4 (four) times daily for 30 days. APIXABAN 5 MG TABLET Take 1 tablet by mouth in the morning and 1 tablet in the evening. Indications: history of deep vein thrombosis BENZONATATE 100 MG CAPSULE Take 2 capsules by mouth every 8 (eight) hours as needed for Cough for up to 30 days. BUDESONIDE-FORMOTEROL 160-4.5 MCG/ACTUATION INHALER Inhale 2 Puffs in the morning and 2 Puffs in the evening. COLLAGENASE 250 UNIT/GRAM OINTMENT Apply to affected area(s) daily for 30 days. NICOTINE 14 MG/24 HR PATCH Apply 1 Patch to area(s) every 24 (twenty-four) hours. PREDNISONE 20 MG TABLET Take 3 tablets by mouth every morning for 5 days. TAMSULOSIN 0.4 MG 24 HR CAPSULE Take 1 capsule by mouth in the morning for 30 days. WARFARIN 2.5 MG TABLET Take 1 tablet by mouth every evening for 30 days. START taking Modified Medications as Prescribed No medications on file STOP taking these medications No medications on file Follow-up: Electronically signed by: Judie Garcia MD 05/11/23 0709 [facility] 2023-05-11 03:03:00 The patient was endorsed to me by Dr. Garcia. The patient presents for epigastric pain. Workup demonstrates that he has gallstone pancreatitis. CT of the abdomen pelvis does not demonstrate cholecystitis. However, he did have ultrasound which demonstrated multiple gallstones with no signs of cholecystitis. There does not appear to be choledocholithiasis. I consulted with Dr. Villareal. She agreed to see the patient in consultation here at [facility]. The patient was admitted to the medicine service for COPD exacerbation and gallstone pancreatitis. He is in stable condition on admission. Elsie Ramos MD 05/11/23 1543 [facility] 2023-05-10 06:45:29 Pt given printed and verbal discharge instructions regarding COPD exacerbation. Prescriptions provided. (Pt threw discharge paperwork and printed prescription in trash can.) Pt verbalized understanding of instructions, pt awake alert oriented, resp reg unlabored, skin w/d, color appropriate for race, moves all ext well,pt encouraged to follow up with pcp. Advised to seek medical attention for new/prolonged/worsening of symptoms. No adverse reaction to meds given in ER noted upon discharge PIV d'cd, dressing to site, catheter in tact. Awake, alert oriented, resp reg unlabored, skin w/d, pt leaving amb with steady gait, accompanied by [facility] officer. [facility] May Jose RN [facility] 2023-05-10 06:34:08 Pt had to be woke up for discharge and was very upset stating that nothing was done for him. He then began screaming that his wallet was missing and that we stole his wallet and money and was throwing things around searching through his bag, yelling that that was why we were getting him out so fast. The [facility] officer was brought in and the pt found his wallet in his bag. The officer is in room now speaking with pt and will escort pt out. [facility] 2023-05-10 05:39:27 Associated Order(s): Critical Care Critical Care Performed by: Elsie Ramos MD Authorized by: Elsie Ramos MD Critical care provider statement: Critical care time (minutes): 45 Critical care time was exclusive of: Separately billable procedures and treating other patients and teaching time Critical care was necessary to treat or prevent imminent or life-threatening deterioration of the following conditions: Respiratory failure Critical care was time spent personally by me on the following activities: Development of treatment plan with patient or surrogate, evaluation of patient's response to treatment, examination of patient, obtaining history from patient or surrogate, ordering and performing treatments and interventions, ordering and review of laboratory studies, ordering and review of radiographic studies, pulse oximetry, re-evaluation of patient's condition and review of old charts Care discussed with: admitting provider Comments: Due to a high probability of clinically significant, life threatening deterioration, the patient required my highest level of preparedness to intervene emergently and I personally spent this critical care time directly and personally managing the patient. This critical care time included obtaining a history; examining the patient; pulse oximetry; ordering and review of studies; arranging urgent treatment with development of a management plan; evaluation of patient's response to treatment; frequent reassessment; and, discussions with other providers. This critical care time was performed to assess and manage the high probability of imminent, life-threatening deterioration that could result in multi-organ failure. It was exclusive of separately billable procedures and treating other patients. [facility] 2023-05-10 02:54:48 Nurse Report Report given to Swapna MARQUEZ. Chief complaint, assessment findings, infusion verify and orders reviewed. Plan of care discussed with nurse. 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 treatment: Medication (comment) CUSTOMER ORDERS CLERK treatment comments: breathing treatment, ED Events Date/Time Event User Comments 05/10/2340 Medical Screening Begins ELSIE RAMOS MD -- 05/10/2340 First Provider Evaluation ELSIE RAMOS MD -- Chief Complaint Chief Complaint Patient presents with Shortness of Breath ED Triage Notes Leonela Martin RN 05/10/2023 00:41 Pt stated " I just can't breath" HPI History provided by: Patient Shortness of Breath Severity: Moderate Onset quality: Gradual Timing: Constant Progression: Worsening Chronicity: Chronic Relieved by: Nothing Worsened by: Nothing Associated symptoms: no abdominal pain, no chest pain, no cough, no fever, no headaches, no vomiting and no wheezing Past Medical History / Immunizations Past Medical History: Diagnosis Date COPD (chronic obstructive pulmonary disease) Tobacco consumption Tetanus received in last 5 years: Yes Past Surgical History Past Surgical History: Procedure Laterality Date ANGIOGRAM VIA LOWER EXTREMITY ACCESS (SHX) Right 07/22/2021 Surgeon: Fuentes Cabrera MD; Location: [facility] OR LOCATION FEMORAL ENDARTERECTOMY Right 04/03/2023 Surgeon: Gilbert Rodríguez MD; Location: [facility] OR LOCATION HERNIA REPAIR TOE AMPUTATION Right 07/26/2021 Surgeon: Onel Segundo DPM; Location: [facility] OR LOCATION TOE AMPUTATION Right 5th digit Rt foot Allergies Allergies Allergen Reactions Codeine Nausea and/or Vomiting and Unknown - See comments Social History Tobacco Use Former; Cigarettes: Quit 06/17/2019; 0.50 packs/day for 50.00 years Passive Exposure: Current Smokeless Tobacco: Never used smokeless tobacco. Vaping Use Never used Alcohol Use Yes. Comments: social Drug Use Never. Review of Systems Review of Systems Constitutional: Negative. Negative for chills, fatigue, fever and unexpected weight change. HENT: Negative. Eyes: Negative. Negative for discharge and itching. Respiratory: Positive for shortness of breath. Negative for cough, chest tightness and wheezing. Cardiovascular: Negative. Negative for chest pain and palpitations. Gastrointestinal: Negative. Negative for abdominal distention, abdominal pain, nausea and vomiting. Genitourinary: Negative. Negative for dysuria, urgency, frequency and flank pain. Musculoskeletal: Negative. Skin: Negative. Negative for color change, pallor and wound. Neurological: Negative. Negative for dizziness, syncope, light-headedness and headaches. Psychiatric/Behavioral: Negative. Negative for agitation and behavioral problems. All other systems reviewed and are negative. Endocrine: Endocrine negative Physical Exam ED Triage Vitals [05/10/23 0041] Weight 62.6 kg (138 lb) Actual or estimated Height 1.829 m (6') BP (!) 149/87 Pulse 90 Resp 26 Temp 36.5 ?C (97.7 ?F) Temp source Oral SpO2 95 % Measured on On oxygen Physical Exam Vitals reviewed. Constitutional: General: He is in acute distress. Appearance: He is well-developed. HENT: Head: Normocephalic and atraumatic. Nose: Nose normal. Eyes: Conjunctiva/sclera: Conjunctivae normal. Neck: Trachea: No tracheal deviation. Cardiovascular: Rate and Rhythm: Normal rate and regular rhythm. Heart sounds: Normal heart sounds. No murmur heard. No friction rub. Pulmonary: Effort: Tachypnea, accessory muscle usage, prolonged expiration and retractions present. No respiratory distress. Breath sounds: No stridor. Examination of the right-upper field reveals wheezing. Examination of the left-upper field reveals wheezing. Examination of the right-middle field reveals wheezing. Examination of the left-middle field reveals wheezing. Examination of the right-lower field reveals wheezing. Examination of the left-lower field reveals wheezing. Wheezing present. No rales. Abdominal: General: Bowel sounds are normal. There is no distension. Palpations: Abdomen is soft. Tenderness: There is no abdominal tenderness. There is no guarding or rebound. Musculoskeletal: General: Normal range of motion. Cervical back: Normal range of motion and neck supple. Skin: General: Skin is warm and dry. Neurological: Mental Status: He is alert and oriented to person, place, and time. Cranial Nerves: No cranial nerve deficit. Sensory: No sensory deficit. Psychiatric: Behavior: Behavior normal. Labs Lab Results CBC WITH DIFF - Abnormal Result Value Ref Range WBC 17.14 (*) 4.20 - 10.70 10*3/?L RBC 4.80 4.26 - 5.52 10*6/?L HGB 15.0 12.2 - 16.4 g/dL HCT 46.6 38.4 - 49.3 % MCV 97.1 (*) 81.7 - 95.6 fL MCH 31.3 26.1 - 32.7 pg MCHC 32.2 31.2 - 35.0 g/dL RDW-SD 53.6 (*) 38.5 - 51.6 fL RDW-CV 14.9 12.1 - 15.4 % PLT 339 (*) 150 - 328 10*3/?L MPV 9.4 (*) 9.8 - 13.0 fL NRBC/100 WBC 0.0 0.0 - 10.0 /100 WBCs NRBC x10 3 <0.01 10*3/?L GRAN MAT (NEUT) % 80.8 % IMM GRAN % 5.30 % LYMPH % 7.9 % MONO % 4.6 % EOS % 0.9 % BASO % 0.5 % GRAN MAT x10 3 (ANC) 13.84 (*) 1.99 - 6.95 10*3/uL IMM GRAN x10 3 0.91 (*) 0.00 - 0.06 10*3/uL LYMPH x10 3 1.36 1.09 - 3.23 10*3/uL MONO x10 3 0.79 0.36 - 1.02 10*3/uL EOS x10 3 0.15 0.06 - 0.53 10*3/uL BASO x10 3 0.09 0.01 - 0.09 10*3/uL REACT LYMPHS Rare COMP. METABOLIC PANEL (30476) - Abnormal NA 140 135 - 145 mmol/L K 4.2 3.5 - 5.0 mmol/L CL 99 98 - 108 mmol/L CO2 TOTAL 36 (*) 23 - 31 mmol/L AGAP 5 2 - 16 BUN 16 7 - 23 mg/dL GLUCOSE 104 70 - 110 mg/dL CREATININE 0.66 0.60 - 1.25 mg/dL TOTAL BILI 0.5 0.1 - 1.1 mg/dL CALCIUM 9.2 8.6 - 10.6 mg/dL T PROTEIN 7.1 6.3 - 8.2 g/dL ALBUMIN 3.9 3.5 - 5.0 g/dL ALK PHOS 138 (*) 34 - 122 U/L ALTv 121 (*) 5 - 50 U/L AST(SGOT) 49 (*) 13 - 40 U/L eGFR 106.0 mL/min/1.73m2 N-TERMINAL PRO-BNP - Abnormal NT-proBNP 256 <=125 pg/mL TROPONIN I - Normal TROPONIN I 0.005 <=0.034 ng/mL Imaging XR CHEST 1 VW Final Result Exam: Chest (1 View), 05/10/2023 12:45 AM. Ordering Physician: ELSIE RAMOS. History: dyspnea . Technique: One view of the chest. Comparison: Chest radiograph 05/01/2023, CT chest angiogram 05/01/2023. Findings: Central bronchial wall thickening. No focal consolidation. Increased lung volumes. No pneumothorax or effusion. Normal size of the cardiac silhouette. No acute osseous finding on this single view. IMPRESSION Impression: bronchiolitis without consolidating opacity. RL: 1825 End of Report Orders and Treatments Orders Placed This Encounter Procedures Critical Care XR CHEST 1 VW CBC WITH DIFF COMP. METABOLIC PANEL (51227) TROPONIN I N-TERMINAL PRO-BNP Orders Placed This Encounter Medications ipratropium-albuteroL (DUONEB) 0.5 mg-3 mg(2.5 mg base)/3 mL nebulizer solution 3 mL ipratropium-albuteroL (DUONEB) 0.5 mg-3 mg(2.5 mg base)/3 mL nebulizer solution 3 mL magnesium sulfate in D5W 1 gram/100 mL RTU IV Piggyback 1 g dexamethasone sod phos PF injection 8 mg ipratropium-albuteroL (DUONEB) 0.5 mg-3 mg(2.5 mg base)/3 mL nebulizer solution 3 mL ipratropium-albuteroL (DUONEB) 0.5 mg-3 mg(2.5 mg base)/3 mL nebulizer solution 3 mL predniSONE 20 mg tablet Procedures EKG Time 0051 Rate 78 Normal sinus Right axis Incomplete RBBB Borderline EKG Notes & MDM Patient was evaluated for an emergency medical condition related to Shortness of Breath DDX COPD Exacerbation Pneumonia ED Course as of 05/10/23 0539 Mary May 10, 2023 0330 Transfer initiated with PPC [DN] ED Course User Index [DN] Elsie Ramos MD Diagnosis/Impression as of 05/10/23 0539 Dyspnea, unspecified type COPD exacerbation Acute on chronic respiratory failure with hypoxia Medical Decision Making Problems Addressed: COPD exacerbation: acute illness or injury Dyspnea, unspecified type: acute illness or injury Amount and/or Complexity of Data Reviewed Labs: ordered. Decision-making details documented in ED Course. Radiology: ordered and independent interpretation performed. Decision-making details documented in ED Course. Risk Prescription drug management. Limitations to patient care and compliance: none. Assessment/Summary: The patient is a 63-year-old gentleman who presents for shortness of breath. The patient COPD exacerbation. He required breathing treatments, steroids, and magnesium. He was initially hypoxic when he was resting however he is decreased his respiratory rate and his oxygenation is satisfactory. He has a white count of 17 however, he has been on steroids. Chest x-ray does not demonstrate a infectious process. Troponins negative. EKG does not demonstrate any ischemia or ectopy. He has a COPD exacerbation that is now significantly improved. I feel comfortable with discharge home. He was discharged in stable and improved condition. He can return for any questions or concerns. History, physical exam findings, results of visit, differential diagnosis, medication regimens and plan of future care have been considered. Additional MDM may be found in the ED course. Differential diagnosis considered and final disposition made based on information gathered during evaluation and may not be completely ruled out or specifically listed. Vital signs were rechecked before final disposition. Diagnosis Final diagnoses: [R06.00] Dyspnea, unspecified type (Primary) [J44.1] COPD exacerbation [J96.21] Acute on chronic respiratory failure with hypoxia Disposition & Follow Up ED Disposition ED Disposition Disch - Home Condition Stable Comment -- Patient's Medications START taking these medications PREDNISONE 20 MG TABLET Take 3 tablets by mouth every morning for 5 days. CONTINUE taking these medications which have NOT CHANGED ALBUTEROL-IPRATROPIUM (COMBIVENT RESPIMAT) 20-100 MCG/ACTUATION INHALER Inhale 1 Puff 4 (four) times daily for 30 days. APIXABAN 5 MG TABLET Take 1 tablet by mouth in the morning and 1 tablet in the evening. Indications: history of deep vein thrombosis BENZONATATE 100 MG CAPSULE Take 2 capsules by mouth every 8 (eight) hours as needed for Cough for up to 30 days. BUDESONIDE-FORMOTEROL 160-4.5 MCG/ACTUATION INHALER Inhale 2 Puffs in the morning and 2 Puffs in the evening. COLLAGENASE 250 UNIT/GRAM OINTMENT Apply to affected area(s) daily for 30 days. NICOTINE 14 MG/24 HR PATCH Apply 1 Patch to area(s) every 24 (twenty-four) hours. TAMSULOSIN 0.4 MG 24 HR CAPSULE Take 1 capsule by mouth in the morning for 30 days. WARFARIN 2.5 MG TABLET Take 1 tablet by mouth every evening for 30 days. START taking Modified Medications as Prescribed No medications on file STOP taking these medications PREDNISONE 10 MG TABLET Take 6 tablets by mouth daily for 5 days, THEN 3 tablets daily for 5 days, THEN 1 tablet daily for 5 days, THEN 0.5 tablets daily for 5 days. Future Appointments In 1 week Amie Shen DO [facility], [facility], [facility] In 3 weeks Gilbert Rodríguez MD [facility] Elsie Ramos Jr., MD Clinical Systems Lead [facility] Emergency Department [employer] is used frequently and may produce errors. Promptly contact for obvious discrepancies. Elsie Ramos MD 05/10/23 0540 [facility] 2023-05-07 12:00:00 Images from the original note were not included. Venipuncture collection performed by clean technique on the right anticubitus. Total of 1 attempts were made. Slight pressure and a bandage/dressing were applied to the site(s). The patient experienced no complications. The following specimens were processed according to instructions and sent to [facility] laboratories per lab order on 05/07/2023 : LT BLUE 1 SST RED LAV PPT DK GREEN (LiHep) DK GREEN (SodH) PACK DK BLUE (K2) DK BLUE (S) ACD Blood Culture NIPT/NTD [facility] 2023-05-07 11:55:04 Patient came in to OV with Betty Schmitz and is needing instructions on when he need to terminate medication WARFARIN. Soonest appoint with Dr. Rodríguez is May. Please advice NCT PHYSICS INSTRUCTOR Sandra Saldivar [facility] 2023-05-07 11:00:00 Addended by: AFSANEH SCHMITZ DNP-BETTY ROSE on: 05/09/2023 10:26 AM Modules accepted: Orders [facility] 2023-05-07 09:41:46 Patient is coming in today, 05/07/23 for a HFU with [facility]. Home Health orders will be placed if appropriate. [facility] 2023-05-07 09:19:17 Spoke with Hematology office in regards to appointment. They stated that they are booked out 6 months and will give patient a call once they run his insurance as they might refer him out to get him a sooner appointment. [place] [facility] 2023-05-07 08:57:06 Patient needs NAEEM appt with Hematology, would like to stay local. Please assist. [facility] 2023-05-05 08:46:08 Will address at his visit. Digna were you able to secure appointment with Heme? [facility] 2023-05-04 16:26:29 Darwin Del Valle is a 63 year old male Yesenia w [facility] is calling to get updates of home health orders. Yesenia states if call after hours for verbal confrimation to ask for a nurse concert pianist. Please advise thank you NCT PHYSICS INSTRUCTOR Alcira Kenyon [facility] 2023-05-04 10:13:22 Images from the original note were not included. PT and INR are normal, continue care and monitoring with hematology- if not able to get in within 2 weeks, we would needs to repeat these labs if you are still on the warfarin. Written by AFSANEH Winchester on 05/04/2023 8:37 AM ADJUNCT PHYSICS INSTRUCTOR Seen by patient Darwin Del Valle on 05/04/2023 9:10 AM Called and notified patient of above results. Patient concerned that his levels are normal and states he has done research and thought they should be higher. Informed patient I can send a message to Betty to clarify where levels should be. Informed patient, per Betty Schmitz, keep HFU appt for 05/07/23 to discuss hospital stay and plan of care moving forward. Patient verbalizes understanding. Patient upset about hematology referral and does not want to drive to [place] or [place] every couple days for lab draw and doesn't understand why it cannot be handled in office. Informed patient we could do an external referral for a provider closer to home. Patient still insisting getting his labs done in office as needed for dosing. AFSANEH Winchester ordered to flip internal referral to external and the POC will be discussed in office when patient is seen for HFU. External Hematology referral added. Please advise on levels for PT/INR while taking medication. [facility] 2023-05-04 09:07:44 Reached out to patient to assist with Hematology appointment he refused to scheduled. He is requesting to speak to a nurse regards RX instructions WARFARIN 2.5 MG TABLET. Reddy [facility] 2023-05-03 16:08:40 Darwin Del Valle is a 63 year old male Pt is on blood thinner , just had surgery in [place] and has been in and out of hospital. Was told by ER that it's very serious and every dose of warfarin needs to be different. Pt needs review labs and know the dosage he needs to take for his warfarin. Please advise. [phone] (home) NCT PHYSICS INSTRUCTOR Kasia Vicente [facility] 2023-05-03 14:52:59 Pt is calling to go over lab results and review the instructions for his warfarin 2.5 mg tablet. Please advise NCT PHYSICS INSTRUCTOR Alex Coleman [facility] 2023-05-03 13:59:10 Darwin Del Valle is a 63 year old male [place] [employer] [facility] calling to verify PCP will sign off on Home Health Orders. she would like a call back with Verbal confirmation PH) [phone] ext [phone] Garcia [facility] 2023-05-03 13:18:54 Can you please contact patient and help him per Betty Schmitz. [facility] 2023-05-03 12:15:00 Images from the original note were not included. Venipuncture collection performed by clean technique on the left anticubitus. Total of 1 attempts were made. Slight pressure and a bandage/dressing were applied to the site(s). The patient experienced no complications. The following specimens were processed according to instructions and sent to [facility] laboratories per lab order on 05/03/2023: LT BLUE 1 SST RED LAV PPT DK GREEN (LiHep) DK GREEN (SodH) PACK DK BLUE (K2) DK BLUE (S) ACD Blood Culture NIPT/NTD [facility] 2023-05-03 10:40:52 He needs a hospital follow up visit to reconcile his health issues and meds. I have made an NAEEM referral to hematology for anticoagulant management- please facilitate this appointment NAEEM. [facility] 2023-05-02 17:02:27 Problem: Respiratory Function - Impaired Goal: Adequate oxygenation 05/02/2023 1702 by Mikayla Roberto RN Outcome: Adequate for discharge 05/02/2023 1003 by Mikayla Roberto RN Outcome: Progressing as expected [facility] 2023-05-02 12:46:21 Summary: Warfarin Monitoring Pharmacy Note for Warfarin Monitoring Pharmacy to monitor warfarin dosing for patient Darwin Del Valle, [id number]. Indication: PAD s/p femoral endarterecomy Goal INR: 2-3 Warfarin dosage prior to admission: 2.5 mg PO daily Most recent INR: 1.2 Current warfarin dosage: Warfarin 2.5 mg PO daily Labs Reviewed Date INR Warfarin Dose Received Reversal Agents if given 05/02/22 1.2 See plan below In addition, SCr, Hgb and Platelets were reviewed. Bridging anticoagulation: Not indicated Significant drug-drug interaction(s): Aspirin: Salicylates may enhance the anticoagulant effect of Vitamin K Antagonists Doxycycline: Tetracyclines may enhance the anticoagulant effect of Vitamin K Antagonists Levofloxacin: Quinolones may enhance the anticoagulant effect of Vitamin K Antagonists Ampicillin/Sulbactam and Piperacillin/Tazobactam: Penicillins may enhance the anticoagulant effect of Vitamin K Antagonists GI/Diet Changes: reviewed, intake not documented Temp Changes: reviewed, stable Recommendations: INR returned today @ 1.2, which is subtherapeutic. Pt maintained on warfarin 2.5 mg PO daily as home regimen. Recommend to initiate home regimen of warfarin 2.5 mg PO daily @ 1700. Monitor and trend INR daily. Pharmacy will continue to monitor patient while in house and make recommendations as needed. _ Britney Sanchez PharmD, [facility] Pager: [phone] 05/02/2023 13:27 [facility] Britney Sanchez [facility] 2023-05-02 10:03:08 Problem: Respiratory Function - Impaired Goal: Adequate oxygenation Outcome: Progressing as expected [facility] 2023-05-02 09:48:34 Called dietary to request that patient meal tray was delivered. [facility] 2023-05-01 19:55:07 Pt report given to overflow MS hold nurse roel MARQUEZ. Patient verbalized understanding of need for admission; holding. Pt tolerated NC @ 2L well, since refusal of bipap and high flow. Pt escorted to holding area via w/c. [facility] Moshe Ibrahim RN [facility] 2023-05-01 16:59:41 CC: patient presents to the ER with complaints of shortness of breath that began last week with worsening of symptoms that began yesterday. States he was released from rehab recently for PNA, states he does have phlegm production. PMHx: see history Awake, alert, oriented, resp reg unlabored, skin warm and dry, color appropriate for race, moves all ext without difficulty, using wheelchair. Appears in no distress. NCT PHYSICS INSTRUCTOR Valerie Mcdonough RN [facility] - [facility] 2023-05-01 16:52:00 Associated Order(s): EKG-12 Lead ROUTINE ONCE Pre-Procedure Diagnose(s): Other form of dyspnea Post-Procedure Diagnose(s): Other form of dyspnea [facility] Emergency Department Note Patient Name: Darwin Del Valle Date of : 1960 63 year old male Treatment Room: AL2/AL2 Primary Care Physician: Betty Schmitz Patient Escorted by: Self [9] Mode of Arrival: Personal means [1] EMS Treatment Prior to ED Arrival: Travel and Exposure Screening: Symptoms Does patient have any of these symptoms?: (not recorded) Exposure Screening Has patient had contact with someone with a communicable disease in the last month?: (not recorded) Diseases exposed to:: (not recorded) Is Patient ?: (not recorded) Exposure Date: (not recorded) Chief Complaint: Chief Complaint Patient presents with Shortness of Breath History of Present Illness: Pt presents with worsening dyspnea, cough for the last week. PT was recently admitted for pneumonia 04/19 to 04/23. PT states having chest pain over L side of chest pain. Pt states he quit smoking one month ago. Past Medical History/Immunizations: Past Medical History: Diagnosis Date COPD (chronic obstructive pulmonary disease) Tobacco consumption Allergies: Allergies Allergen Reactions Codeine Nausea and/or Vomiting and Unknown - See comments Past Social History: Tobacco Use Former; Cigarettes: Quit 06/17/2019; 0.50 packs/day for 50.00 years Passive Exposure: Current Smokeless Tobacco: Never used smokeless tobacco. Vaping Use Never used Alcohol Use Yes. Comments: social Drug Use Never. Past Surgical History: Past Surgical History: Procedure Laterality Date ANGIOGRAM VIA LOWER EXTREMITY ACCESS (SHX) Right 07/22/2021 Surgeon: Fuentes Cabrera MD; Location: [facility] OR LOCATION FEMORAL ENDARTERECTOMY Right 04/03/2023 Surgeon: Gilbert Rodríguez MD; Location: [facility] OR LOCATION HERNIA REPAIR TOE AMPUTATION Right 07/26/2021 Surgeon: Onel Segundo DPM; Location: [facility] OR LOCATION TOE AMPUTATION Right 5th digit Rt foot Review of Systems: Review of Systems Constitutional: Negative for chills and fever. HENT: Negative for voice change. Respiratory: Positive for cough, chest tightness and shortness of breath. Cardiovascular: Positive for chest pain. Gastrointestinal: Negative for vomiting. Neurological: Negative for seizures. Physical Exam: ED Triage Vitals [05/01/23 1701] Weight 62.6 kg (138 lb) Actual or estimated Estimated by patient/family report Height 1.829 m (6') BP 98/80 Pulse 126 Resp 20 Temp 37.2 ?C (99 ?F) Temp source Oral SpO2 94 % Measured on Room air Physical Exam Vitals and nursing note reviewed. Constitutional: Appearance: Normal appearance. Comments: Anxious appearing HENT: Head: Normocephalic. Cardiovascular: Rate and Rhythm: Tachycardia present. Pulmonary: Breath sounds: Wheezing present. Comments: Increase work of breathing Neurological: General: No focal deficit present. Mental Status: He is alert and oriented to person, place, and time. Mental status is at baseline. Psychiatric: Mood and Affect: Mood normal. Behavior: Behavior normal. Radiology: XR CHEST 1 VW Final Result ORDERING PHYSICIAN: CED GUY HISTORY: dyspnea COMPARISON: 04/19/2023 FINDINGS: A single frontal view of the chest. Heart is normal in size. There is no pulmonary edema. There are no focal areas of consolidation. There is no pneumothorax. There are no pleural effusions. Old left-sided rib fractures once again seen. Osseous structures are unremarkable. Please note that chest radiography is not a sensitive modality for the detection of masses. IMPRESSION No radiographic evidence of acute cardiopulmonary process. RL: 135 Lab Results: Lab Results CBC WITH DIFF - Abnormal Result Value Ref Range WBC 23.40 (*) 4.20 - 10.70 10*3/?L RBC 4.78 4.26 - 5.52 10*6/?L HGB 14.6 12.2 - 16.4 g/dL HCT 44.0 38.4 - 49.3 % MCV 92.1 81.7 - 95.6 fL MCH 30.5 26.1 - 32.7 pg MCHC 33.2 31.2 - 35.0 g/dL RDW-SD 49.5 38.5 - 51.6 fL RDW-CV 14.6 12.1 - 15.4 % PLT 351 (*) 150 - 328 10*3/?L MPV 9.6 (*) 9.8 - 13.0 fL NRBC/100 WBC 0.0 0.0 - 10.0 /100 WBCs NRBC x10 3 <0.01 10*3/?L GRAN MAT (NEUT) % 92.2 % IMM GRAN % 1.40 % LYMPH % 1.9 % MONO % 3.6 % EOS % 0.6 % BASO % 0.3 % GRAN MAT x10 3 (ANC) 21.57 (*) 1.99 - 6.95 10*3/uL IMM GRAN x10 3 0.33 (*) 0.00 - 0.06 10*3/uL LYMPH x10 3 0.45 (*) 1.09 - 3.23 10*3/uL MONO x10 3 0.85 0.36 - 1.02 10*3/uL EOS x10 3 0.14 0.06 - 0.53 10*3/uL BASO x10 3 0.06 0.01 - 0.09 10*3/uL COMP. METABOLIC PANEL (55704) - Abnormal NA 134 (*) 135 - 145 mmol/L K 4.3 3.5 - 5.0 mmol/L CL 98 98 - 108 mmol/L CO2 TOTAL 30 23 - 31 mmol/L AGAP 6 2 - 16 BUN 9 7 - 23 mg/dL GLUCOSE 128 (*) 70 - 110 mg/dL CREATININE 0.73 0.60 - 1.25 mg/dL TOTAL BILI 0.9 0.1 - 1.1 mg/dL CALCIUM 9.4 8.6 - 10.6 mg/dL T PROTEIN 7.2 6.3 - 8.2 g/dL ALBUMIN 4.1 3.5 - 5.0 g/dL ALK PHOS 125 (*) 34 - 122 U/L ALTv 55 (*) 5 - 50 U/L AST(SGOT) 31 13 - 40 U/L eGFR 102.9 mL/min/1.73m2 AC PANEL 21 + LACTIC ACID - Abnormal PH 7.54 (*) 7.32 - 7.42 PCO2 LARRY 31 (*) 41 - 51 mmHg PO2 LARRY 131 (*) 25 - 40 mmHg HCO3 LARRY 26 24 - 28 mEq/L AC VBE(BEAKER) 3.9 mEq/L THB LARRY 13.8 13.5 - 18.0 g/dL %O2HB LARRY 97.7 (*) 52.0 - 63.0 % %COHB LARRY 0.3 0.0 - 1.5 % %METHB LARRY 0.6 0.4 - 1.5 % VOL%O2 LARRY 19.2 (*) 6.0 - 12.0 % NA 137 135 - 145 mmol/L K+ 4.0 3.5 - 5.0 mmol/L AC CA IONZ 4.20 (*) 4.50 - 5.30 mg/dL GLUCOSE 125 (*) 70 - 110 mg/dL LACTIC ACID 1.46 0.50 - 2.20 mmol/L TROPONIN I - Normal TROPONIN I 0.003 <=0.034 ng/mL N-TERMINAL PRO-BNP - Normal NT-proBNP 116 <=125 pg/mL RAPID INFLUENZA A/B - Normal Rapid Influenza A Negative Negative Rapid Influenza B Negative Negative COVID-19 (ID NOW RAPID TESTING) - Normal SARS-CoV-2 Rapid ID NOW Not Detected Not Detected BLOOD CULTURE SCREEN BLOOD CULTURE SCREEN EKG: If EKG completed, see Procedure Note. Orders and Treatments: Orders Placed This Encounter Procedures XR CHEST [address] CHEST PULMONARY ANGIOGRAM Cbc with Diff Comp. Metabolic Panel (90297) Troponin I N-Terminal Pro-Bnp BLOOD CULTURE SCREEN BLOOD CULTURE SCREEN RAPID INFLUENZA A/B COVID-19 (ID NOW TESTING) AC Panel 21 + Lactic Acid Lab Only COVID Interpretation High Flow Nasal Cannula - Adult Orders Placed This Encounter Medications ipratropium-albuteroL (DUONEB) 0.5 mg-3 mg(2.5 mg base)/3 mL nebulizer solution 3 mL methylprednisolone sod succ (SOLU-MEDROL) injection 125 mg aspirin tablet 325 mg NaCl 0.9% (NS) bolus infusion 1,000 mL iopamidol (ISOVUE 370-500 mL) injection 100 mL levoFLOXacin in D5W (LEVAQUIN) 750 mg/150 mL Piggyback 750 mg NaCl 0.9% (NS) bolus infusion 1,000 mL vancomycin (VANCOCIN) 1,000 mg in NaCl 0.9% (NS) 250 mL VIAL-MATE IV piggyback piperacillin-tazobactam (ZOSYN) 3.375 g in NaCl 0.9% (NS) 100 mL MINI-BAG First Provider Eval: ED Events None ED COURSE ED Course as of 05/01/23 185e May 01, 2023 184 PT to be s/o Dr. Garcia at 1900. Pt started on abx. [PB] 1732 PT refusing ABG, understands risk of not having abg. [PB] 1716 Will obtain labs, EKG, cxr, ct chest. PT to receive duoneb, steroids, aspirin, ivf. [PB] ED Course User Index [PB] Ced Guy MD Diagnosis/Impression as of 05/01/23 185 Other form of dyspnea Procedures: EKG-12 Lead ROUTINE ONCE Date/Time: 05/01/2023 6:55 PM Performed by: Ced Guy MD Authorized by: Ced Guy MD Rate: ECG rate: 115 ECG rate assessment: tachycardic Rhythm: Rhythm: sinus tachycardia Comments: Sinus tachycardia, no stemi,qtc 464 msec, HR 115 MDM: Medical Decision Making 63 yo M presentes with shortness of breath. Pt has elevated wbc and started on zosyn, vancomycin, levaquin. Problems Addressed: Other form of dyspnea: acute illness or injury Details: Pt being treated for dyspnea with High flow NC oxygen, abx. Amount and/or Complexity of Data Reviewed Labs: ordered. Details: WBC 23.4 Radiology: ordered. ECG/medicine tests: ordered and independent interpretation performed. Details: Sinus tachycardia, no stemi, HR 115 Discussion of management or test interpretation with external provider(s): PT to be s/o Dr. Garcia. Risk OTC drugs. Prescription drug management. Flowsheet Documentation: Scoring Tools: No data recorded Disposition/Condition: ED Disposition None Discharge Medications: Patient's Medications START taking these medications No medications on file CONTINUE taking these medications which have NOT CHANGED ALBUTEROL-IPRATROPIUM (COMBIVENT RESPIMAT) 20-100 MCG/ACTUATION INHALER Inhale 1 Puff 4 (four) times daily. BUDESONIDE-FORMOTEROL 160-4.5 MCG/ACTUATION INHALER Inhale 2 Puffs in the morning and 2 Puffs in the evening. DOXYCYCLINE HYCLATE 100 MG CAPSULE Take 1 capsule by mouth every 12 (twelve) hours for 8 days. NICOTINE 14 MG/24 HR PATCH Apply 1 Patch to area(s) every 24 (twenty-four) hours. TAMSULOSIN 0.4 MG 24 HR CAPSULE Take 1 capsule by mouth in the morning. WARFARIN 2.5 MG TABLET Take 1 tablet by mouth every evening. START taking Modified Medications as Prescribed No medications on file STOP taking these medications No medications on file Follow-up: NCT PHYSICS INSTRUCTOR [facility] [facility] STA[facility] 2023-05-01 12:48:49 Darwin Del Valle is a 63 year old male calling in requesting INR orders to be placed naeem due to being discharged form [facility] as of yesterday.Please advise NCT PHYSICS INSTRUCTOR Jackson Stevenson [facility] 2023-04-27 16:49:06 Received medical records from [facility] will put into Dr. Shen ADC folder for review NCT PHYSICS INSTRUCTOR Daphne Cruz MA [facility] 2023-04-25 13:22:31 TRANSITIONAL CARE MANAGEMENT ASSESSMENT 04/25/2023 Darwin Del Valle [id number] Darwin Del Valle is a 63 year old /White male was admitted on 04/19/23 to [facility]. He was discharged on 04/23/23 with discharge disposition of HR- Routine Discharge. Admitting Physician: Vincenzo Portillo Discharge Diagnosis: AE COPD Acute on chronic respiratory failure 2/2 above PNA PAD w/ ischemic injury HTN HLD Linked Episodes Type: Episode: Status: Noted: Resolved: Last update: Updated by: TRANSITION OF CARE TCM Active 04/25/2023 04/25/2023 1:22 PM Jasmine Doshi, RN Comments: TCM [id number]-face outreach documentation: Discharge Assessment Chart Assessed: 04/25/23 Chart Reviewed - Post Discharge Call Deferred due to Change in Discharge Status.: Discharged to Inpatient Rehab Discharge location: [facility] Future Appointments: Future Appointments Provider Department Dept Phone 05/07/2023 11:00 AM [facility]mitz FNP [facility] [phone] 07/06/2023 10:00 AM Amie Shen DO [facility] [phone] Transition CM follow-up call deferred at this time. Jasmine Doshi RN, MSN, MEDSURG-BC, CCRN, CCM [employer] of [place] [employer] Operator Esthetician Makeup Artist Management Office: [phone] NCT PHYSICS INSTRUCTOR Jasmine Doshi RN [facility] 2023-04-23 16:18:57 Problem: Respiratory Function - Impaired Goal: Able to cough effectively 04/23/20231617 by Raquel Melvin RN Outcome: Resolved 04/23/20231617 by Raquel Melvin RN Outcome: Adequate for discharge Goal: Adequate oxygenation 04/23/2023 161 by Raquel Melvin RN Outcome: Resolved 04/23/2023 161 by Raquel Melvin RN Outcome: Adequate for discharge Goal: Adequate work of breathing 04/23/2023 1618 by Raquel Melvin RN Outcome: Resolved 04/23/2023 161 by Raquel Melvin, ALMA Outcome: Adequate for discharge Goal: Patent airway 04/23/2023 161 by Raquel Melvin, ALMA Outcome: Resolved 04/23/2023 161 by Raquel Melvin RN Outcome: Adequate for discharge Problem: Skin integrity Impaired (Risk or Actual) Goal: Wound healing 04/23/2023 1618 by Raquel Melvin, ALMA Outcome: Resolved 04/23/2023 1618 by Raquel Melvin RN Outcome: Adequate for discharge Goal: Prevention of new skin breakdown 04/23/2023 1618 by Raquel Melvin RN Outcome: Resolved 04/23/2023 1618 by Raquel Melvin RN Outcome: Adequate for discharge NCT PHYSICS INSTRUCTOR Raqeul Melvin RN [facility] 2023-04-23 11:08:54 Summary: Pharmacy Note for Warfarin Monitoring Pharmacy Note for Warfarin Monitoring Pharmacy to monitor warfarin dosing for patient Darwin Del Valle, [id number]. Indication: Peripheral Arterial disease (s/p femoral endarterectomy) Goal INR: 2-3 Warfarin dosage prior to admission: Warfarin 5 mg PO x 1 dose, followed by warfarin 2.5 mg PO daily Most recent INR: 2.0 Current warfarin dosage: Warfarin 2.5 mg PO daily Labs Reviewed Date INR Warfarin Dose Received Reversal Agents if given 04/19/23 1.7 5 mg prior to admission (patient reported) Warfarin 2.5 mg PO given @ 1721 04/20/23 2.1 Warfarin 2.5 mg PO given @ 1800 04/21/23 2.6 Warfarin 1 mg PO given @ 1700 04/22/23 2.4 Warfarin 2.5 mg PO given @ 1634 04/23/23 2.0 Resume home regimen In addition, SCr, Hgb and Platelets were reviewed. Scr 0.66 / Hbg 13.5 / Plts 522 Bridging anticoagulation: N/A Significant drug-drug interaction(s): Ceftriaxone - Cephalosporins may enhance the anticoagulant effect of Vitamin K Antagonists (D/C on 04/22/23) Doxycycline - Tetracyclines may enhance the anticoagulant effect of Vitamin K Antagonists Prednisone - Corticosteroids (Systemic) may enhance the anticoagulant effect of Vitamin K Antagonists (taper down steroid on 04/22/23) GI/Diet Changes: reviewed, stable Temp Changes: reviewed, stable Recommendations: INR returned this morning @ 2.0, which is therapeutic. INR dropped 0.4 in 24H but trend is staying within goal. Hbg/Plts stable, no reported signs or symptoms of bleeding. Recommend pt to resume home regimen of warfarin 2.5 mg PO daily @ 1700. Monitor and trend INR daily and for signs and symptoms of bleeding. Pharmacy will continue to monitor patient while in house and make recommendations as needed. _ Jhonatan Solorio PharmD, [facility] Jhonatan Solorio [facility] 2023-04-22 22:14:09 Problem: Respiratory Function - Impaired Goal: Able to cough effectively Outcome: Progressing as expected Goal: Adequate oxygenation Outcome: Progressing as expected Goal: Adequate work of breathing Outcome: Progressing as expected Goal: Patent airway Outcome: Progressing as expected Problem: Skin integrity Impaired (Risk or Actual) Goal: Wound healing Outcome: Progressing as expected Goal: Prevention of new skin breakdown Outcome: Progressing as expected [facility] Mattie Mart RN [facility] 2023-04-22 16:10:45 Problem: Respiratory Function - Impaired Goal: Able to cough effectively Outcome: Progressing as expected Goal: Adequate oxygenation Outcome: Progressing as expected Goal: Adequate work of breathing Outcome: Progressing as expected Goal: Patent airway Outcome: Progressing as expected Problem: Skin integrity Impaired (Risk or Actual) Goal: Wound healing Outcome: Progressing as expected Goal: Prevention of new skin breakdown Outcome: Progressing as expected [facility] 2023-04-22 09:40:21 Summary: Warfarin Monitoring Pharmacy Note for Warfarin Monitoring Pharmacy to monitor warfarin dosing for patient Darwin Del Valle, [id number]. Indication: Peripheral Arterial disease (s/p femoral endarterectomy) Goal INR: 2-3 Warfarin dosage prior to admission: Warfarin 5 mg PO x 1 dose, followed by warfarin 2.5 mg PO daily Most recent INR: 2.4 Current warfarin dosage: Warfarin 2.5 mg PO daily Labs Reviewed Date INR Warfarin Dose Received Reversal Agents if given 04/19/23 1.7 5 mg prior to admission (patient reported) Warfarin 2.5 mg PO given @ 1721 04/20/23 2.1 Warfarin 2.5 mg PO given @ 1800 04/21/23 2.6 Warfarin 1 mg PO given @ 1700 04/22/23 2.4 Resume home regimen In addition, SCr, Hgb and Platelets were reviewed. Scr 0.65 / Hbg 12.7 / Plts 533 Bridging anticoagulation: N/A Significant drug-drug interaction(s): Ceftriaxone - Cephalosporins may enhance the anticoagulant effect of Vitamin K Antagonists Doxycycline - Tetracyclines may enhance the anticoagulant effect of Vitamin K Antagonists Methylprednisolone - Corticosteroids (Systemic) may enhance the anticoagulant effect of Vitamin K Antagonists GI/Diet Changes: reviewed, stable Temp Changes: reviewed, stable Recommendations: Pt states he took an additional 5 mg dose prior to admission (for a total of two 5 mg doses). Per Rx directions, pt should have only taken one dose of warfarin 5 mg and then started 2.5 mg PO daily. INR returned this morning @ 2.4, which is therapeutic and trend is staying within goal. Pt received a 1 mg dose of warfarin yesterday. Hbg/Plts stable, no reported signs or symptoms of bleeding. Recommend pt to resume home regimen of warfarin 2.5 mg PO daily @ 1700. Monitor and trend INR daily and for signs and symptoms of bleeding. Pharmacy will continue to monitor patient while in house and make recommendations as needed. _ Britney Sanchez PharmD, [facility] Pager: [phone] 04/22/2023 09:40 NCT PHYSICS INSTRUCTOR Britney Sanchez [facility] 2023-04-21 22:31:08 Problem: Respiratory Function - Impaired Goal: Able to cough effectively Outcome: Progressing as expected Goal: Adequate oxygenation Outcome: Progressing as expected Goal: Adequate work of breathing Outcome: Progressing as expected Goal: Patent airway Outcome: Progressing as expected Problem: Skin integrity Impaired (Risk or Actual) Goal: Wound healing Outcome: Progressing as expected Goal: Prevention of new skin breakdown Outcome: Progressing as expected [facility] 2023-04-21 16:00:29 Problem: Respiratory Function - Impaired Goal: Able to cough effectively Outcome: Progressing as expected Goal: Adequate oxygenation Outcome: Progressing as expected Goal: Adequate work of breathing Outcome: Progressing as expected Goal: Patent airway Outcome: Progressing as expected Problem: Skin integrity Impaired (Risk or Actual) Goal: Wound healing Outcome: Progressing as expected Goal: Prevention of new skin breakdown Outcome: Progressing as expected [facility] Mica Jacob RN [facility] 2023-04-21 09:45:30 Summary: Warfarin Monitoring Pharmacy Note for Warfarin Monitoring Pharmacy to monitor warfarin dosing for patient Darwin Del Valle, [id number]. Indication: Peripheral Arterial disease (s/p femoral endarterectomy) Goal INR: 2-3 Warfarin dosage prior to admission: Warfarin 5 mg PO x 1 dose, followed by warfarin 2.5 mg PO daily Most recent INR: 2.6 Current warfarin dosage: Warfarin 2.5 mg PO daily Labs Reviewed Date INR Warfarin Dose Received Reversal Agents if given 04/19/23 1.7 5 mg prior to admission (patient reported) Warfarin 2.5 mg PO given @ 1721 04/20/23 2.1 Warfarin 2.5 mg PO given @ 1800 04/21/23 2.6 See plan below In addition, SCr, Hgb and Platelets were reviewed. Scr 0.61 / Hbg 13.0 / Plts 486 (04/20/23) Bridging anticoagulation: N/A Significant drug-drug interaction(s): Ceftriaxone - Cephalosporins may enhance the anticoagulant effect of Vitamin K Antagonists Doxycycline - Tetracyclines may enhance the anticoagulant effect of Vitamin K Antagonists Methylprednisolone - Corticosteroids (Systemic) may enhance the anticoagulant effect of Vitamin K Antagonists GI/Diet Changes: reviewed, stable Temp Changes: reviewed, stable Recommendations: Performed warfarin education with patient yesterday, states he took an additional 5 mg dose prior to admission (for a total of #2 5 mg doses). Per Rx directions, pt should have only taken 1 dose of warfarin 5 mg and then started 2.5 mg PO daily. INR returned this morning @ 2.6, which is therapeutic and trending up. Significant increase in INR by 0.5 within 24 hour period. Hbg/Plts stable, no reported signs or symptoms of bleeding. Due to significant increase in INR over 24 hours, recommend pt to receive a dose of warfarin 1 mg PO x 1 today @ 1700 and recheck INR tomorrow morning. Monitor and trend INR daily and for signs and symptoms of bleeding. Pharmacy will continue to monitor patient while in house and make recommendations as needed. _ Britney Sanchez PharmD, RPH [facility] Pager: [phone] 04/21/2023 09:45 [facility] 2023-04-21 00:10:41 Problem: Respiratory Function - Impaired Goal: Able to cough effectively Outcome: Progressing as expected Goal: Adequate oxygenation Outcome: Progressing as expected Goal: Adequate work of breathing Outcome: Progressing as expected Goal: Patent airway Outcome: Progressing as expected Problem: Skin integrity Impaired (Risk or Actual) Goal: Wound healing Outcome: Progressing as expected Goal: Prevention of new skin breakdown Outcome: Progressing as expected Avery RN [facility] 2023-04-20 10:28:39 Summary: Warfarin Monitoring Pharmacy Note for Warfarin Monitoring Pharmacy to monitor warfarin dosing for patient Darwin Del Valle, [id number]. Indication: Peripheral Arterial disease (s/p femoral endarterectomy) Goal INR: 2-3 Warfarin dosage prior to admission: Warfarin 5 mg PO x 1 dose, followed by warfarin 2.5 mg PO daily Most recent INR: 2.1 Current warfarin dosage: Warfarin 2.5 mg PO daily Labs Reviewed Date INR Warfarin Dose Received Reversal Agents if given 04/19/23 1.7 Warfarin 2.5 mg PO given @ 1721 04/20/23 2.1 Warfarin 2.5 mg PO scheduled @ 1700 In addition, SCr, Hgb and Platelets were reviewed. Scr 0.61 / Hbg 13.0 / Plts 486 Bridging anticoagulation: N/A Significant drug-drug interaction(s): Ceftriaxone - Cephalosporins may enhance the anticoagulant effect of Vitamin K Antagonists Doxycycline - Tetracyclines may enhance the anticoagulant effect of Vitamin K Antagonists Methylprednisolone - Corticosteroids (Systemic) may enhance the anticoagulant effect of Vitamin K Antagonists GI/Diet Changes: reviewed, stable Temp Changes: reviewed, trending down WNL Recommendations: INR returned this morning @ 2.1, which is therapeutic. Hbg/Plts stable, no reported signs or symptoms of bleeding. Recommend to continue with home regimen of warfarin 2.5 mg PO daily. Monitor and trend INR. Pharmacy will continue to monitor patient while in house and make recommendations as needed. _ Britney [facility] Pager: [phone] 04/20/2023 10:28 [facility] 2023-04-19 23:25:15 Problem: Respiratory Function - Impaired Goal: Able to cough effectively Outcome: Progressing as expected Goal: Adequate oxygenation Outcome: Progressing as expected Goal: Adequate work of breathing Outcome: Progressing as expected Goal: Patent airway Outcome: Progressing as expected Problem: Skin integrity Impaired (Risk or Actual) Goal: Wound healing Outcome: Progressing as expected Goal: Prevention of new skin breakdown Outcome: Progressing as expected [facility] 2023-04-19 10:40:02 Attempted to contact patient to schedule sooner appointment. Patient did not answer phone call. LVM to RC. Encounter closed. [facility] 10:27:43 Summary: Warfarin Monitoring Pharmacy Note for Warfarin Monitoring Pharmacy to monitor warfarin dosing for patient Darwin Del Valle, [id number]. Indication: Peripheral Arterial disease (s/p femoral endarterectomy) Goal INR: 2-3 Warfarin dosage prior to admission: Warfarin 5 mg PO x 1 dose, followed by warfarin 2.5 mg PO daily Most recent INR: 1.7 Current warfarin dosage: Warfarin 2.5 mg PO daily Labs Reviewed Date INR Warfarin Dose Received Reversal Agents if given 04/19/23 1.7 Warfarin 2.5 mg PO scheduled @ 1700 In addition, SCr, Hgb and Platelets were reviewed. Scr 0.73 / Hbg 14.4 / Plts 572 Bridging anticoagulation: N/A Significant drug-drug interaction(s): Ceftriaxone - Cephalosporins may enhance the anticoagulant effect of Vitamin K Antagonists Doxycycline - Tetracyclines may enhance the anticoagulant effect of Vitamin K Antagonists Methylprednisolone - Corticosteroids (Systemic) may enhance the anticoagulant effect of Vitamin K Antagonists GI/Diet Changes: reviewed, intake amount not documented Temp Changes: reviewed, trending down WNL Recommendations: INR returned this morning @ 1.7, which is subtherapeutic. INR trend over last few days reviewed, trending up towards goal. Hbg/Plts stable, no reported signs or symptoms of bleeding. Recommend to continue with home regimen of warfarin 2.5 mg PO daily. Monitor and trend INR. Pharmacy will continue to monitor patient while in house and make recommendations as needed. _ Britney Sanchez PharmD, RPH [facility] Pager: [phone] 04/19/2023 10:33 [facility] 2023-04-19 06:11:02 Nurse Report Report given to ALMA Geiger. Chief complaint, assessment findings, infusion verify and orders reviewed. Plan of care discussed at over the phone. Patient/family members verbalized understanding. Mary Meredith RN [facility] Mary Meredith RN [facility] 2023-04-19 06:07:24 Patient admitted to [facility] med/surg for diagnosis of SOB, COPD exacerbation, and leukocytosis Patient agrees to admission, discussed plan of care with patient and family. Patient is awake, alert, oriented, resp reg unlabored, color appropriate for race, PIV intact No adverse reaction to medications administered while in ED Belongings with patient to unit Report to ALMA Geiger [facility] 2023-04-19 06:07:00 Lab was called to add-on Phosphorus. [facility] 2023-04-19 03:30:00 Breathing was getting worse about 3 pm. Uses oxygen concentrator at home. Arrived with out oxygen. Pt walked into ED lobby to first set of chairs and began calling for help and oxygen, pt was brought into ER1 by wheelchair. 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 He has a history of COPD and does wear 2 L of oxygen at all times. He was recently admitted to the hospital for COPD exacerbation April 13 through April 17. He reports this evening he ran of oxygen and so therefore he comes to the ER for evaluation. He states he no longer smokes. Here for evaluation. Past Medical History/Immunizations: Past Medical History: Diagnosis Date COPD (chronic obstructive pulmonary disease) Tobacco consumption Tetanus received in last 5 years: Yes Childhood immunizations: Up-to-date Allergies: Allergies Allergen Reactions Codeine Nausea and/or Vomiting and Unknown - See comments Past Social History: Tobacco Use Former; Cigarettes: Quit 06/17/2019; 0.50 packs/day for 50.00 years Passive Exposure: Current Smokeless Tobacco: Never used smokeless tobacco. Vaping Use Never used Alcohol Use Yes. Comments: social Drug Use Never. Past Surgical History: Past Surgical History: Procedure Laterality Date ANGIOGRAM VIA LOWER EXTREMITY ACCESS (SHX) Right 07/22/2021 Surgeon: Fuentes Cabrera MD; Location: [facility] OR LOCATION FEMORAL ENDARTERECTOMY Right 04/03/2023 Surgeon: Gilbert Rodríguez MD; Location: [facility] OR LOCATION HERNIA REPAIR TOE AMPUTATION Right 07/26/2021 Surgeon: Onel Segundo DPM; Location: [facility] OR LOCATION TOE AMPUTATION Right 5th digit Rt foot Review of Systems: Review of Systems Constitutional: Negative for chills and fever. Respiratory: Positive for cough and shortness of breath. Cardiovascular: Negative for chest pain. Gastrointestinal: Negative for abdominal pain and vomiting. Genitourinary: Negative for dysuria. Musculoskeletal: Negative for arthralgias, neck pain and neck stiffness. Skin: Negative for wound. Neurological: Negative for dizziness. Psychiatric/Behavioral: Negative for agitation. Endocrine: Negative for goiter. Physical Exam: ED Triage Vitals [04/19/23 0330] Weight 62.6 kg (138 lb) Actual or estimated Estimated by patient/family report Height 1.829 m (6') BP (!) 129/100 Pulse 105 Resp (!) 36 Temp 37.9 ?C (100.2 ?F) Temp source Oral SpO2 94 % Measured on On oxygen Physical Exam Vitals and nursing note reviewed. Constitutional: Appearance: Normal appearance. HENT: Head: Normocephalic and atraumatic. Nose: Nose normal. Mouth/Throat: Mouth: Mucous membranes are dry. Cardiovascular: Rate and Rhythm: Regular rhythm. Tachycardia present. Pulmonary: Breath sounds: Wheezing present. Comments: Poor air movement throughout with scattered wheezing. Able to speak in 2-3 word sentences and using accessory muscles to breath. Abdominal: General: There is no distension. Palpations: Abdomen is soft. Tenderness: There is no abdominal tenderness. There is no guarding. Musculoskeletal: General: Normal range of motion. Cervical back: Normal range of motion and neck supple. No tenderness. Skin: Comments: Dusky fingers Neurological: General: No focal deficit present. Mental Status: He is alert and oriented to person, place, and time. Radiology: XR CHEST 1 VW Final Result ORDERING PHYSICIAN: ANDIE JOSE CLINICAL HISTORY: Shortness of breath TECHNIQUE: Frontal view of chest COMPARISON: 04/12/2023 FINDINGS: The cardiac silhouette is within normal limits. There are mildly increased interstitial pulmonary opacities bilaterally, possibly representing interstitial edema versus bilateral atypical interstitial pneumonia. There are no effusions. Osseous structures are normal. IMPRESSION There are mildly increased interstitial pulmonary opacities bilaterally, possibly representing interstitial edema versus bilateral atypical interstitial pneumonia. There are no effusions. RL: [id number] Lab Results: Lab Results CBC WITH DIFF - Abnormal Result Value Ref Range WBC 21.01 (*) 4.20 - 10.70 10*3/?L RBC 4.67 4.26 - 5.52 10*6/?L HGB 14.4 12.2 - 16.4 g/dL HCT 44.2 38.4 - 49.3 % MCV 94.6 81.7 - 95.6 fL MCH 30.8 26.1 - 32.7 pg MCHC 32.6 31.2 - 35.0 g/dL RDW-SD 50.4 38.5 - 51.6 fL RDW-CV 14.6 12.1 - 15.4 % PLT 572 (*) 150 - 328 10*3/?L MPV 9.8 9.8 - 13.0 fL NRBC/100 WBC 0.0 0.0 - 10.0 /100 WBCs NRBC x10 3 <0.01 10*3/?L SEG % 84 (*) 33 - 76 % BAND % 4 (*) 0 - 1 % MONO % 8 (*) 0 - 4 % EOS % 4 (*) 0 - 3 % ANC 18.49 (*) 1.99 - 6.95 10*3/uL PLT ESTIMATE Increased (*) Normal PROTHROMBIN TIME / INR - Abnormal PROTIME PATIENT 19.2 (*) 12.0 - 14.7 Seconds INR 1.7 COMP. METABOLIC PANEL (75491) - Abnormal NA 135 135 - 145 mmol/L K 4.0 3.5 - 5.0 mmol/L CL 98 98 - 108 mmol/L CO2 TOTAL 29 23 - 31 mmol/L AGAP 8 2 - 16 BUN 14 7 - 23 mg/dL GLUCOSE 112 (*) 70 - 110 mg/dL CREATININE 0.73 0.60 - 1.25 mg/dL TOTAL BILI 0.8 0.1 - 1.1 mg/dL CALCIUM 9.4 8.6 - 10.6 mg/dL T PROTEIN 7.5 6.3 - 8.2 g/dL ALBUMIN 4.3 3.5 - 5.0 g/dL ALK PHOS 289 (*) 34 - 122 U/L ALTv 134 (*) 5 - 50 U/L AST(SGOT) 65 (*) 13 - 40 U/L eGFR 102.9 mL/min/1.73m2 PHOSPHORUS EKG: If EKG completed, see Procedure Note. Orders and Treatments: Orders Placed This Encounter Procedures XR CHEST 1 VW CBC WITH DIFF PROTHROMBIN TIME / INR COMP. METABOLIC PANEL (98806) CBC with Differential Basic Metabolic Panel (NA, K, CL, CO2, GLUCOSE, BUN, CREATININE, CA) Magnesium Serum Phosphorus Serum N-TERMINAL PRO-BNP Troponin I Prothrombin Time / INR NASAL CANNULA O2 Per Protocol Orders Placed This Encounter Medications methylprednisolone sod succ (SOLU-MEDROL) injection 125 mg ipratropium (ATROVENT) 0.02 % nebulizer solution 0.5 mg albuterol (PROVENTIL) 2.5 mg /3 mL (0.083 %) nebulizer solution 7.5 mg DISCONTD: methylprednisolone sod succ (SOLU-MEDROL) injection 125 mg magnesium sulfate in water 2 gram/50 mL (4 %) infusion 2 g cefTRIAXone (ROCEPHIN) 1,000 mg in NaCl 0.9% (NS) 100 mL MINI-BAG DISCONTD: azithromycin (ZITHROMAX) 500 mg in NaCl 0.9% (NS) 250 mL VIAL-MATE IV piggyback DISCONTD: enoxaparin (LOVENOX) injection 40 mg acetaminophen (TYLENOL) tablet 650 mg HYDROcodone-acetaminophen (NORCO 5) 5-325 mg tablet 1 tablet FENTanyl PF (SUBLIMAZE (PF)) injection 12.5 mcg ipratropium-albuteroL (DUONEB) 0.5 mg-3 mg(2.5 mg base)/3 mL nebulizer solution 3 mL methylPREDNISolone sod succ (SOLU-MEDROL (PF)) injection 40 mg cefTRIAXone (ROCEPHIN) 1,000 mg in NaCl 0.9% (NS) 100 mL MINI-BAG nicotine (NICODERM) 14 mg/24 hr patch 1 Patch warfarin (COUMADIN) tablet 5 mg First Provider Eval: ED Events Date/Time Event User Comments 04/19/23333 Medical Screening Begins ANDIE JOSE DO -- 04/19/23333 First Provider Evaluation NADIE JOSE DO -- ED COURSE Diagnosis/Impression as of 04/19/23 0520 SOB (shortness of breath) COPD exacerbation Leukocytosis, unspecified type Procedures: EKG-12 Lead ROUTINE ONCE Date/Time: 04/19/2023 4:05 AM Performed by: Andie Jose DO Authorized by: Andie Jose DO ECG interpreted by ED Physician in the absence of a sanding machine tender automatic: yes Interpretation: Interpretation: normal Rate: ECG rate: 102 ECG rate assessment: normal Rhythm: Rhythm: sinus rhythm Ectopy: Ectopy: none QRS: QRS axis: Normal QRS intervals: Normal QRS conduction: normal ST segments: ST segments: Normal T waves: T waves: normal Q waves: Abnormal Q-waves: not present MDM: Medical Decision Making The patient presents from home for evaluation for worsening shortness of breath since around 3 PM yesterday. He does have a history of COPD and is supposed to wear 2 L oxygen at all times. He did run out of oxygen this evening. He no longer smokes cigarettes. He was recently admitted to the hospital April 13 through for COPD exacerbation. The patient is tachycardic upon arrival to the ER and noted to have dusky fingers preventing us from obtaining accurate pulse ox. He is able to speak in 2-3 word sentences and has poor air movement throughout with scattered wheezing. He is also using sensory muscles to breathe. The patient was placed on supplemental oxygen and provided with albuterol and Atrovent treatments here in the ER. After supplemental oxygen was applied his oxygen saturations were 94%. Will also give the patient IV magnesium as well as IV Solu-Medrol. He was negative for influenza A&B as well as COVID on April 13. Will obtain a chest x-ray today as well as laboratory studies. Anticipate need for admission later on. 399 -the patient is doing well here in the ER. After the albuterol and Atrovent treatments he no longer has use accessory muscles and is able to speak in full and complete sentence without difficulty. He has improved aeration with more wheezing heard throughout. Will continue to monitor the patient here in the ER. 5 -the patient is doing well here in the ER. His laboratory studies show a leukocytosis with a white blood cell count of 21,000. His INR is subtherapeutic at 1.7. His chest x-ray shows possible early pneumonia. Will give the patient IV antibiotics here in the ER. Will admit to internal medicine for continued management. 0500 - spoke with Dr. Wu with the internal medicine service and the patient was accepted for admission for continued management. Problems Addressed: COPD exacerbation: acute illness or injury Leukocytosis, unspecified type: acute illness or injury SOB (shortness of breath): acute illness or injury Amount and/or Complexity of Data Reviewed Labs: ordered. Decision-making details documented in ED Course. Radiology: ordered and independent interpretation performed. Decision-making details documented in ED Course. Risk Prescription drug management. Parenteral controlled substances. Decision regarding hospitalization. Flowsheet Documentation: Scoring Tools: No data recorded Disposition/Condition: ED Disposition ED Disposition Admit - Inpatient Condition -- Comment -- Discharge Medications: Patient's Medications START taking these medications No medications on file CONTINUE taking these medications which have NOT CHANGED NICOTINE 14 MG/24 HR PATCH Apply 1 Patch to area(s) every 24 (twenty-four) hours. WARFARIN 5 MG TABLET Take 0.5 tablets by mouth every evening. WARFARIN 5 MG TABLET Take 1 tablet by mouth the evening of 04/17. START taking Modified Medications as Prescribed No medications on file STOP taking these medications No medications on file Follow-up: Electronically signed by: Andie Jose DO 04/19/23 0520 [facility] 2023-04-18 19:26:00 Regarding: med question: confused about warfarin instructions ----- Message from Latisha Hamilton sent at 04/18/2023 7:25 PM ADJUNCT PHYSICS INSTRUCTOR ----- Darwin Del Valle is a 63 year old male that has questions about warfarin instructions. Siddiqui RN [facility] 2023-04-18 19:26:00 Darwin Del Valle is a 63 year old male, needs directions on weather he should take 5mg or 0.5 tabs. AC RN educated the patient his prescription is to take 0.5 tabs each evening. Will have to cut the pills in half. Patient verbalized understanding, Call back advice given. ARUNA Thomas, RN [facility] Reason for Disposition Caller has medication question only, adult not sick, and triager answers question Protocols used: Medication Question [id number] [facility] 2023-04-18 10:38:39 Darwin Del Valle is a 63 year old male Pt calling needing to schedule a hospital f/u. He is currently scheduled for the first available with his pcp. [phone] (home) NCT PHYSICS INSTRUCTOR Rosette No [facility] 2023-01-02 15:22:33 Formatting of this n ote is different from the original. TRANSITIONAL CARE MANAGEMENT ASSESSMENT 01/02/2023 Darwin Del Valle [id number] Darwin Del Valle is a 62 year old /White male was admitted on 12/25/22 to [facility], [facility]. He was discharged on 12/29/22 with discharge disposition of HR- Routine Discharge. Admitting Physician: Florian Nguyen Discharge Diagnosis: Acute hypoxemic respiratory failure Other Diagnosis: Acute COPD exacerbation Active smoker Pulmonary nodule Linked Episodes Type: Episode: Status: Noted: Resolved: Last update: Updated by: TRANSITION OF CARE TCM Active 01/02/2023 01/02/2023 12:11 PM Jasmine Doshi RN Comments: TCM [id number] outreach documentation: Discharge Assessment Chart Assessed: 01/02/23 Future Appointments: Future Appointments Provider Department Dept Phone 01/12/2023 11:00 AM Betty Schmitz FNP [facility] [phone] 04/27/2023 4:30 PM Betty Schmitz [facility] [phone] Transition CM attempted to contact patient x2. CM left a discreet voicemail explaining purpose of call and call back information. Jasmine Doshi RN, MSN, MEDSURG-, CCRN, CCM [employer] [place] [employer] Operator Esthetician Makeup Artist Management Office: [phone] Jasmine Doshi RN [facility] 2023-01-02 12:12:26 Formatting of this n ote might be different from the original. CM LVM to return call. Will attempt again at a later time. [facility] 2022-12-29 10:41:55 Formatting of this n ote might be different from the original. Problem: Falls, Risk of Goal: Absence of falls Outcome: Adequate for discharge Problem: Skin integrity Impaired (Risk or Actual) Goal: Wound healing Outcome: Adequate for discharge Goal: Prevention of new skin breakdown Outcome: Adequate for discharge Problem: Discharge Planning Goal: Adequate for discharge Outcome: Adequate for discharge Goal: Effective communication Outcome: Adequate for discharge Problem: Pain Goal: Control of pain at or below patient's documented comfort goal Outcome: Adequate for discharge Goal: Reduction in pain sensation Outcome: Adequate for discharge Problem: Venous Thromboembolism, (actual or risk of) Goal: Absence of venous thromboembolism (Risk) Outcome: Adequate for discharge Goal: Prevent further complications associated with VTE diagnosis (Actual) Outcome: Adequate for discharge Problem: Respiratory Function - Impaired Goal: Able to cough effectively Outcome: Adequate for discharge Goal: Adequate oxygenation Outcome: Adequate for discharge Goal: Adequate work of breathing Outcome: Adequate for discharge Goal: Patent airway Outcome: Adequate for discharge Mica Jacob RN [facility] 2022-12-28 23:45:09 Formatting of this n ote might be different from the original. Problem: Skin integrity Impaired (Risk or Actual) Goal: Wound healing Outcome: Progressing as expected Goal: Prevention of new skin breakdown Outcome: Progressing as expected Problem: Discharge Planning Goal: Adequate for discharge Outcome: Progressing as expected Goal: Effective communication Outcome: Progressing as expected Problem: Pain Goal: Control of pain at or below patient's documented comfort goal Outcome: Progressing as expected Goal: Reduction in pain sensation Outcome: Progressing as expected Problem: Venous Thromboembolism, (actual or risk of) Goal: Absence of venous thromboembolism (Risk) Outcome: Progressing as expected Goal: Prevent further complications associated with VTE diagnosis (Actual) Outcome: Progressing as expected Problem: Respiratory Function - Impaired Goal: Able to cough effectively Outcome: Progressing as expected Goal: Adequate oxygenation Outcome: Progressing as expected Goal: Adequate work of breathing Outcome: Progressing as expected Goal: Patent airway Outcome: Progressing as expected Kathie Carcamo RN [facility] 2022-12-28 17:48:32 Formatting of this n ote might be different from the original. Problem: Falls, Risk of Goal: Absence of falls Outcome: Progressing as expected Problem: Skin integrity Impaired (Risk or Actual) Goal: Wound healing Outcome: Progressing as expected Goal: Prevention of new skin breakdown Outcome: Progressing as expected Problem: Discharge Planning Goal: Adequate for discharge Outcome: Progressing as expected Goal: Effective communication Outcome: Progressing as expected Problem: Pain Goal: Control of pain at or below patient's documented comfort goal Outcome: Progressing as expected Goal: Reduction in pain sensation Outcome: Progressing as expected Problem: Venous Thromboembolism, (actual or risk of) Goal: Absence of venous thromboembolism (Risk) Outcome: Progressing as expected Goal: Prevent further complications associated with VTE diagnosis (Actual) Outcome: Progressing as expected Problem: Respiratory Function - Impaired Goal: Able to cough effectively Outcome: Progressing as expected Goal: Adequate oxygenation Outcome: Progressing as expected Goal: Adequate work of breathing Outcome: Progressing as expected Goal: Patent airway Outcome: Progressing as expected Mariola Pichardo RN [facility] 2022-12-27 22:32:49 Formatting of this n ote might be different from the original. Problem: Falls, Risk of Goal: Absence of falls Outcome: Progressing as expected Problem: Skin integrity Impaired (Risk or Actual) Goal: Prevention of new skin breakdown Outcome: Progressing as expected Problem: Discharge Planning Goal: Adequate for discharge Outcome: Progressing as expected Goal: Effective communication Outcome: Progressing as expected Problem: Pain Goal: Control of pain at or below patient's documented comfort goal Outcome: Progressing as expected Goal: Reduction in pain sensation Outcome: Progressing as expected Problem: Venous Thromboembolism, (actual or risk of) Goal: Absence of venous thromboembolism (Risk) Outcome: Progressing as expected Problem: Respiratory Function - Impaired Goal: Able to cough effectively Outcome: Progressing as expected Goal: Adequate oxygenation Outcome: Progressing as expected Goal: Adequate work of breathing Outcome: Progressing as expected Goal: Patent airway Outcome: Progressing as expected Leonela Martin RN [facility] 2022-12-27 12:25:32 Formatting of this n ote might be different from the original. Problem: Falls, Risk of Goal: Absence of falls Outcome: Progressing as expected Problem: Skin integrity Impaired (Risk or Actual) Goal: Wound healing Outcome: Progressing as expected Goal: Prevention of new skin breakdown Outcome: Progressing as expected Problem: Discharge Planning Goal: Adequate for discharge Outcome: Progressing as expected Goal: Effective communication Outcome: Progressing as expected Problem: Pain Goal: Control of pain at or below patient's documented comfort goal Outcome: Progressing as expected Goal: Reduction in pain sensation Outcome: Progressing as expected Problem: Venous Thromboembolism, (actual or risk of) Goal: Absence of venous thromboembolism (Risk) Outcome: Progressing as expected Goal: Prevent further complications associated with VTE diagnosis (Actual) Outcome: Progressing as expected Problem: Respiratory Function - Impaired Goal: Able to cough effectively Outcome: Progressing as expected Goal: Adequate oxygenation Outcome: Progressing as expected Goal: Adequate work of breathing Outcome: Progressing as expected Goal: Patent airway Outcome: Progressing as expected [facility] 2022-12-26 22:16:46 Formatting of this n ote might be different from the original. Problem: Falls, Risk of Goal: Absence of falls Outcome: Progressing as expected Problem: Skin integrity Impaired (Risk or Actual) Goal: Wound healing Outcome: Progressing as expected Goal: Prevention of new skin breakdown Outcome: Progressing as expected Problem: Discharge Planning Goal: Adequate for discharge Outcome: Progressing as expected Goal: Effective communication Outcome: Progressing as expected Problem: Pain Goal: Control of pain at or below patient's documented comfort goal Outcome: Progressing as expected Goal: Reduction in pain sensation Outcome: Progressing as expected Problem: Venous Thromboembolism, (actual or risk of) Goal: Absence of venous thromboembolism (Risk) Outcome: Progressing as expected Goal: Prevent further complications associated with VTE diagnosis (Actual) Outcome: Progressing as expected Problem: Respiratory Function - Impaired Goal: Able to cough effectively Outcome: Progressing as expected Goal: Adequate oxygenation Outcome: Progressing as expected Goal: Adequate work of breathing Outcome: Progressing as expected Goal: Patent airway Outcome: Progressing as expected [facility] 2022-12-26 12:30:49 Formatting of this n ote might be different from the original. Problem: Falls, Risk of Goal: Absence of falls Outcome: Progressing as expected Problem: Skin integrity Impaired (Risk or Actual) Goal: Wound healing Outcome: Progressing as expected Goal: Prevention of new skin breakdown Outcome: Progressing as expected Problem: Discharge Planning Goal: Adequate for discharge Outcome: Progressing as expected Goal: Effective communication Outcome: Progressing as expected Problem: Pain Goal: Control of pain at or below patient's documented comfort goal Outcome: Progressing as expected Goal: Reduction in pain sensation Outcome: Progressing as expected Problem: Venous Thromboembolism, (actual or risk of) Goal: Absence of venous thromboembolism (Risk) Outcome: Progressing as expected Goal: Prevent further complications associated with VTE diagnosis (Actual) Outcome: Progressing as expected Problem: Respiratory Function - Impaired Goal: Able to cough effectively Outcome: Progressing as expected Goal: Adequate oxygenation Outcome: Progressing as expected Goal: Adequate work of breathing Outcome: Progressing as expected Goal: Patent airway Outcome: Progressing as expected [facility] 2022-12-26 03:34:19 Formatting of this n ote might be different from the original. Problem: Falls, Risk of Goal: Absence of falls Outcome: Progressing as expected Problem: Skin integrity Impaired (Risk or Actual) Goal: Wound healing Outcome: Progressing as expected Goal: Prevention of new skin breakdown Outcome: Progressing as expected Problem: Discharge Planning Goal: Adequate for discharge Outcome: Progressing as expected Goal: Effective communication Outcome: Progressing as expected Problem: Pain Goal: Control of pain at or below patient's documented comfort goal Outcome: Progressing as expected Goal: Reduction in pain sensation Outcome: Progressing as expected Problem: Venous Thromboembolism, (actual or risk of) Goal: Absence of venous thromboembolism (Risk) Outcome: Progressing as expected Goal: Prevent further complications associated with VTE diagnosis (Actual) Outcome: Progressing as expected Problem: Respiratory Function - Impaired Goal: Able to cough effectively Outcome: Progressing as expected Goal: Adequate oxygenation Outcome: Progressing as expected Goal: Adequate work of breathing Outcome: Progressing as expected Goal: Patent airway Outcome: Progressing as expected T [facility] 2022-12-25 15:44:30 Formatting of this n ote might be different from the original. Patient transported via W/c to 4. Remains on O2 at 2 liters/min for transport. Patient alert, mild SOB present, maintaining SpO2 94-95% upon leaving ED T Katie Goncalves RN [facility] 2022-12-25 15:40:52 Formatting of this n ote might be different from the original. Nurse Report Report given to Homar MARQUEZ on Med/Surg. Chief complaint, assessment findings, infusion verify and orders reviewed. Plan of care discussed at bedside with patient Patient/family members verbalized understanding. KATIE GONCALVES RN [facility] 2022-12-25 13:30:00 Formatting of this n ote might be different from the original. Patient received second duo neb by RT as ordered. Patient resting quietly post neb with O2 patent via N/C at 2 liters/min.-SpO2 96%. O2 removed, patient maintained O2 sat at rest of 94-95%. Patient sat up on side of stretcher without change in SpO2. Patient ambulated with nurse approximately 100 feet with moderate WALTER, SpO2 87-88% when back in bed. Placed back on O2 at 2 liters/min, with slow rise in SpO2 to 95%. Dr Maldonado informed. [facility] 2022-12-25 11:22:48 Formatting of this n ote might be different from the original. Report to Nuris MARQUEZ [facility] 2022-12-25 09:46:25 Formatting of this n ote might be different from the original. Ultrasound at bedside [facility] 2022-12-25 09:30:24 Formatting of this n ote might be different from the original. Pt states breathing much easier, more warm blankets for comfort, awaiting US [facility] 2022-12-25 08:26:06 Formatting of this n ote might be different from the original. Pt states has been sitting in the parking lot [id number], too weak to come inside, states short of breath for about 24 hours, states did a neb in the vehicle then tried to smoke a cigarette before coming in, also c/o left ankle swollen for 3 days, denies injury, denies pain, states right leg hurts a little but not swollen. Skin w/d/ states feeling a little better since ER svn complete, nsr on monitor, no chest pain, [facility] 2022-12-25 08:24:26 Formatting of this n ote might be different from the original. xray at bedside [facility] 2022-12-25 08:24:15 Formatting of this n ote might be different from the original. SVN complete [facility] 2022-12-25 08:00:59 Formatting of this n ote might be different from the original. Darwin Del Valle is a 62 year old male c /o " I can't breath, my left foot is swollen" did a nebulzer in the parking lot Wendy Parra RN [facility] 2022-12-18 11:33:08 Formatting of this n ote might be different from the original. ----- Message from AFSANEH Winchester sent at 12/16/2022 4:32 PM CDT ----- Regarding: FW: Pulmonary Rehabilitation Referral Recommendation ----- Message ----- From: America Fan RCP Sent: 12/13/2022 3:57 PM CDT To: David Olguin MD; # Subject: Pulmonary Rehabilitation Referral Recommenda# Recommending Outpatient Pulmonary Rehabilitation referral be placed. Current diagnosis may qualify patient and it is recommended patient perform a PFT within 18 months of pulmonary rehab. Referral for Pulmonary Rehab can be placed via [facility] [id number] - CONSULT/REFERRAL PULMONARY REHAB Indication for Pulmonary Rehab: COPD Bronchiectasis Cystic Fibrosis Interstitial Lung Disease Pulmonary Hypertension Pre/Post Lung Transplant Pneumonia Due to Coronavirus Disease COVID > 4 weeks with SOB Diagnosis: Patient Active Problem List Diagnosis ?Hypoxia ?Osteomyelitis ?COPD (chronic obstructive pulmonary disease) ?Smoker ?Shortness of breath ?Acute exacerbation of chronic obstructive pulmonary disease (COPD) ?COPD with acute exacerbation ?Chronic obstructive pulmonary disease, unspecified COPD type Smoking History: Patient reports that he quit smoking about 3 years ago. His smoking use included cigarettes. He has a 25.00 pack-year smoking history. He has been exposed to tobacco smoke. He has never used smokeless tobacco. Additional Notes: Pulmonary Rehabilitation is designed to improve activities of daily living, improve breathing, smoking cessation, reduce hospitalization, and improve overall management of chronic lung disease. Patient will be contacted by Pulmonary Rehab staff upon discharge and placement of referral. It is strongly recommended for [facility] Provider to place a referral for outpatient pulmonary rehabilitation. Referral for Pulmonary Rehab can be accessed from the Discharge Navigator : [id number] - CONSULT/REFERRAL PULMONARY REHAB For any question please call the pulmonary rehabilitation clinic at [place] [phone], [facility] [phone], [facility] [phone], [facility] [phone]. Thank you. [facility] 2022-11-28 23:53:44 Formatting of this n ote might be different from the original. Patient leaving AMA due to not wanting to be transferred to [place], discussed risks of leaving against medical advice/final dispositon, Dr. Guy aware and notified of patient's decision. Patient encouraged to seek medical attention for any new/prolonged/worsening of symptoms and stressed importance of follow up with a medical provider as soon as possible. AMA form explained, patient signed form. IV d'cd, dressing to site. Patient leaving ambulatory with steady gait, appears in no distress Sabrina Vital RN [facility] 2022-11-28 22:14:50 Formatting of this n ote might be different from the original. 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 Samantha Israel RN [facility] 2022-11-28 22:01:00 Formatting of this n ote is different from the original. [facility] Emergency Department Note Patient Name: Darwin Del Valle Date of : 1960 62 year old male Treatment Room: AL1/AL1 Primary Care Physician: Betty Schmitz Patient Escorted by: Self [9] Mode of Arrival: Personal means [1] EMS Treatment Prior to ED Arrival: Travel and Exposure Screening: Symptoms Does patient have any of these symptoms?: (not recorded) Exposure Screening Has patient had contact with someone with a communicable disease in the last month?: (not recorded) Diseases exposed to:: (not recorded) Is Patient ?: (not recorded) Exposure Date: (not recorded) Chief Complaint: Chief Complaint Patient presents with Shortness of Breath History of Present Illness: PT presents with sudden worsening of dyspnea for the past 3-4 hours. [...] Codeine Nausea and/or Vomiting and Unknown - See comments Past Social History: Tobacco Use Former; Cigarettes: Quit 06/17/2019; 0.50 packs/day for 50.00 years Passive Exposure: Current Smokeless Tobacco: Never used smokeless tobacco. Vaping Use Never used Alcohol Use Yes. Comments: social Drug Use Never. Past Surgical History: Past Surgical History: Procedure Laterality Date ANGIOGRAM VIA LOWER EXTREMITY ACCESS (SHX) Right 07/22/2021 Surgeon: Fuentes Cabrera MD; Location: [facility] OR LOCATION HERNIA REPAIR TOE AMPUTATION Right 07/26/2021 Surgeon: Onel Segundo DPM; Location: [facility] OR LOCATION TOE AMPUTATION Right 5th digit Rt foot Review of Systems: Review of Systems Constitutional: Negative for fever. HENT: Negative for voice change. Respiratory: Positive for chest tightness and shortness of breath. Cardiovascular: Positive for chest pain. [...] Status: He is alert and oriented to person, place, and time. Psychiatric: Mood and Affect: Mood normal. Behavior: Behavior normal. Thought Content: Thought content normal. Judgment: Judgment normal. Radiology: CT CHEST PULMONARY ANGIOGRAM Final Result Ordering physician: CED GUY Indication: Chest pain, dyspnea, history of COPD Comparison: Chest radiograph dated 11/13/2022, chest CT dated 08/20/2022 Technique: CTA of the chest was performed following the administration of intravenous contrast material. Three-dimensional reformats were generated following completion of the exam. CT scan was performed according to ALARA (as low as reasonably achievable) policy. Findings: The visualized thyroid gland is within normal limits. There is no thoracic aortic aneurysm or dissection. The heart is normal in size without significant pericardial effusion. No filling defect is appreciated in the pulmonary arteries to the level of the distal segmental arteries. No pathologically enlarged mediastinal or hilar lymph nodes are identified. No acute process is identified in the upper abdomen. No acute pulmonary process is identified. There is moderate centrilobular emphysema, predominantly in the lung apices. There is a 6 mm pulmonary nodule in the right upper lobe (series 10, image 58). There is thickening of the bronchial walter in the lower lobes bilaterally. There are multiple pulmonary nodules in the right lower lobe, measuring up to 5 mm (series 10, image 193). Bone windows through the chest demonstrate no osseous destructive lesion. IMPRESSION Impression: No CTA evidence for pulmonary embolus. Thickening of the bronchial walter in the bilateral lower lobes, possibly reflecting infectious or inflammatory bronchitis. Moderate centrilobular emphysema. Multiple small pulmonary nodules in the right lung measuring up to 6 mm. The 6 mm pulmonary nodule in the right upper lobe is stable compared to the previous exam. Smaller pulmonary nodules in the right lower lobe are new compared to the prior study, and may be infectious/inflammatory. Follow-up recommendations are based upon the 2017 Fleischner Chest Society which are based upon the nodule size and patient risk factor for cancer. For multiple nodules 6-8 mm in size, follow-up is based upon the patient risk factor: A) Low-Risk Patient: Given stability at 4 months, consider CT at 18-24 months from 08/20/2022 B) High-Risk Patient: Given stability in 4 months, CT at 18-24 months from 08/20/2022 RL: [id number] AFC: [id number] Lab Results: Lab Results CBC WITH DIFF [...] 0.01 - 0.09 10*3/uL COMP. METABOLIC PANEL (10493) - Abnormal NA 137 135 - 145 [...] SARS-CoV-2 Rapid ID NOW Not Detected Not Detected RAPID INFLUENZA A/B - Normal Rapid Influenza A Negative Negative Rapid Influenza B Negative Negative EKG: NSR, no stemi, qtc 449 msec, HR 96 Changed from previous ekg Orders and Treatments: Orders Placed This Encounter Procedures XR CHEST [address] CHEST PULMONARY ANGIOGRAM CBC WITH DIFF Lactic Acid Whole Blood COMP. METABOLIC PANEL (81179) TROPONIN I N-TERMINAL PRO-BNP AC PANEL 21 + LACTIC ACID COVID-19 (ID NOW TESTING) RAPID INFLUENZA A/B LAB ONLY COVID INTERPRETATION Orders Placed This Encounter Medications aspirin tablet 325 mg ipratropium-albuteroL (DUONEB) 0.5 mg-3 mg(2.5 mg base)/3 mL nebulizer solution 3 mL methylprednisolone sod succ (SOLU-MEDROL) injection 125 mg NaCl 0.9% (NS) bolus infusion 500 mL iopamidol (ISOVUE 370-500 mL) injection 75 mL albuterol 90 mcg/actuation inhaler predniSONE 20 mg tablet doxycycline hyclate 100 mg capsule First Provider Eval: ED Events Date/Time Event User Comments 11/28/222214 Medical Screening Begins CED GUY MD A -- 08/01/23 2215 First Provider Evaluation CED GUY MD -- No notes of EC Admission Criteria type on file. ED COURSE Diagnosis/Impression as of 11/28/22 2348 COPD exacerbation Will obtain labs, ekg, cxr, ct chest angio. PT to receive ivf, asa, duoneb, steroids. 23:45 Pt informed of results. Pt refusing to be transferred for admission as [facility] does not have any beds. Pt understands the risks of leaving AMA. Pt is ao x 3, denies SI. Procedures: Procedures MDM: Medical Decision Making 62 yo M presents COPD exacerbation Problems Addressed: COPD exacerbation: acute illness or injury Details: pt presents with copd exacerbation Amount and/or Complexity of Data Reviewed Labs: ordered. Radiology: ordered. Risk Risk Details: PT refusing transfer for admission. PT understands risk of leaving [...] NOT CHANGED ALBUTEROL 2.5 MG /3 ML (0.083 %) NEBULIZER SOLUTION Inhale 3 mL every 2 (two) hours as needed for Shortness of Breath or Wheezing. FLUTICASONE-SALMETEROL (ADVAIR DISKUS) 100-50 MCG/DOSE INHALATION DISK Inhale 1 Puff every 12 (twelve) hours. GUAIFENESIN 100 MG/5 ML SOLUTION Take 10 mL by mouth every 4 (four) hours as needed for Cough. IPRATROPIUM-ALBUTEROL 0.5 MG-3 MG(2.5 MG BASE)/3 ML NEBULIZER SOLUTION USE 1 VIAL IN NEBULIZER EVERY 4 HOURS NEEDED FOR WHEEZING OR SHORTNESS OF BREATH START taking Modified Medications as Prescribed No medications on file STOP taking these medications No medications on file Follow-up: [facility] 2022-11-16 11:54:37 Formatting of this n ote is different from the original. TRANSITIONAL CARE MANAGEMENT ASSESSMENT 11/16/2022 Darwin Del Valle [id number] Darwin Del Valle is a 62 year old /White male was admitted on 11/13/22 to [facility]. He was discharged on 11/15/22 with discharge disposition of HR- Routine Discharge. Admitting Physician: Ibis Hunter Discharge Diagnosis: Acute hypoxemic respiratory failure secondary to COPD exacerbation Linked Episodes Type: Episode: Status: Noted: Resolved: Last update: Updated by: TRANSITION OF CARE TCM Active 11/16/2022 11/16/2022 10:33 AM Jasmine Doshi RN Comments: TCM Rya-ncdk-nw-face outreach documentation: Discharge Assessment Chart Assessed: 11/16/22 Future Appointments: Future Appointments Provider Department Dept Phone 12/05/2022 11:30 AM Amie Shen DO [facility] [phone] 04/27/2023 4:30 PM Betty Schmitz FNP [facility] [phone] Transition CM attempted to contact patient x2. CM left a discreet voicemail explaining purpose of call and call back information. Jasmine Doshi RN, MSN, [facility], CCRN, [facility] Transitions of [employer] Operator Esthetician Makeup Artist Management Office: [phone] DT Jasmine Doshi RN [facility] 2022-11-16 10:33:44 Formatting of this n ote might be different from the original. CM LVM to return call. Will attempt again at a later time. [facility] 2022-11-14 22:56:22 Formatting of this n ote might be different from the original. Problem: Falls, Risk of Goal: Absence of [...] Control of pain at or below patient's documented comfort goal Outcome: Progressing as expected Goal: Reduction in pain sensation Outcome: Progressing as expected Fely Avery RN [facility] 2022-11-14 14:50:20 Formatting of this n ote might be different from the original. Problem: Falls, Risk of Goal: Absence of [...] Control of pain at or below patient's documented comfort goal Outcome: Progressing as expected Goal: Reduction in pain sensation Outcome: Progressing as expected Romina Montenegro RN [facility] 2022-11-13 22:11:14 Formatting of this n ote might be different from the original. Problem: Falls, Risk of Goal: Absence of [...] Control of pain at or below patient's documented comfort goal Outcome: Progressing as expected Goal: Reduction in pain sensation Outcome: Progressing as expected Colleen Multani RN [facility] 2022-11-13 17:02:05 Formatting of this n ote might be different from the original. Problem: Falls, Risk of Goal: Absence of [...] Control of pain at or below patient's documented comfort goal Outcome: Progressing as expected Goal: Reduction in pain sensation Outcome: Progressing as expected T Erika Lester RN [facility] 2022-11-13 09:58:53 Formatting of this n ote might be different from the original. O2 Saturation at REST on Room Air = 88% O2 Saturation at REST on 2 LPM of Oxygen = 92% If room air Saturations on Room Air are 88% or below STOP as no further testing is needed [facility] 2022-11-13 03:40:41 Formatting of this n ote might be different from the original. Problem: Falls, Risk of Goal: Absence of [...] Control of pain at or below patient's documented comfort goal Outcome: Progressing as expected Goal: Reduction in pain sensation Outcome: Progressing as expected Eleni Roblero RN [facility] 2022-11-13 03:07:34 Formatting of this n ote might be different from the original. Patient admitted to [facility] for diagnosis of COPD. Patient agrees to admission, discussed plan of care with patient and family. Patient is awake, A&Ox 4, RR even and unlabored on RA. Color appropriate for race. PIV intact x 1. No adverse reaction to medications administered while in ED. Belongings with patient to unit. DT Priscilla Gauthier RN [facility] 2022-11-13 03:06:05 Formatting of this n ote might be different from the original. Nurse Report Report given to Rachael MARQUEZ. Chief complaint, assessment findings, infusion verify and orders reviewed. Priscilla Gauthier RN [facility] 2022-11-13 01:13:38 Formatting of this n ote might be different from the original. Pt presents with SOB since 1030 pm . Pt has hx of COPD and smoker. Pt has increased WOB., 28RR and 94% RA. EKG performed during triage Coral Chahal RN [facility] 2022-11-13 01:09:00 Associated Order(s): EKG-12 Lead ONCE Pre-Procedure Diagnose(s): Chronic obstructive pulmonary disease, unspecified COPD type Post-Procedure Diagnose(s): Chronic obstructive pulmonary disease, unspecified COPD type [facility] Emergency Department Note Patient Name: Darwin Del Valle Date of : 1960 62 year old male Treatment Room: AL2/[facility] Primary Care Physician: Betty Schmitz Patient Escorted by: Self [9] Mode of Arrival: Personal means [1] EMS Treatment Prior to ED 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 Vaping Use Never used Alcohol Use Yes. Comments: social Drug Use Never. Past Surgical History: Past Surgical History: Procedure Laterality Date ANGIOGRAM VIA LOWER EXTREMITY ACCESS (SHX) Right 07/22/2021 Surgeon: Fuentes Cabrera MD; Location: [facility] OR LOCATION HERNIA REPAIR TOE AMPUTATION Right 07/26/2021 Surgeon: Onel Segundo DPM; Location: [facility] OR LOCATION TOE AMPUTATION Right 5th digit Rt foot Review of Systems: Review of Systems Constitutional: Positive for fatigue. Negative for chills and fever. HENT: Negative. Eyes: Negative. Respiratory: Positive for cough, shortness of breath and wheezing. Breasts: Negative. Cardiovascular: Negative. Gastrointestinal: [...] Appearance: He is ill-appearing. He is not toxic-appearing or diaphoretic. HENT: Head: Normocephalic. Nose: Nose normal. Mouth/Throat: Mouth: Mucous membranes are dry. Eyes: Pupils: Pupils are equal, round, and reactive to light. Cardiovascular: Rate and Rhythm: Tachycardia present. Pulses: Normal pulses. Heart sounds: Normal heart sounds. Pulmonary: Effort: Respiratory distress present. Breath sounds: Wheezing present. Abdominal: Palpations: Abdomen is soft. Musculoskeletal: General: Normal range of motion. Skin: General: Skin is warm. Capillary Refill: Capillary refill takes less than 2 seconds. Neurological: General: No focal deficit present. Mental Status: He is alert and oriented to person, place, and time. Psychiatric: Mood and Affect: [...] 0.01 - 0.09 10*3/uL COMP. METABOLIC PANEL (49209) TROPONIN I EKG: If EKG completed, see Procedure Note. Orders and Treatments: Orders Placed This Encounter Procedures XR CHEST 1 VW CBC WITH DIFF COMP. METABOLIC PANEL (01356) TROPONIN I Orders Placed This Encounter Medications methylprednisolone sod succ (SOLU-MEDROL) injection 125 mg ipratropium-albuteroL (DUONEB) 0.5 mg-3 mg(2.5 mg base)/3 mL nebulizer solution 3 mL levoFLOXacin (LEVAQUIN) tablet 500 mg ipratropium-albuteroL (DUONEB) 0.5 mg-3 mg(2.5 mg base)/3 mL nebulizer solution 3 mL First Provider Eval: ED Events None ED COURSE Diagnosis/Impression as of 11/13/22 0216 Chronic obstructive pulmonary disease, unspecified COPD type Procedures: EKG-12 Lead ONCE Date/Time: 11/13/2022 2:15 AM Performed by: Wili Chauhan MD Authorized by: Wili Chauhan MD ECG reviewed by ED Physician in the absence of a sanding machine tender automatic: yes Interpretation: Interpretation: abnormal Rate: ECG rate: 104 Rhythm: Rhythm: sinus tachycardia Ectopy: Ectopy: none QRS: QRS axis: Normal QRS intervals: Normal QRS conduction: normal ST segments: ST segments: Normal T waves: T waves: normal MDM: Medical Decision Making Amount and/or Complexity of Data Reviewed Labs: ordered. Radiology: ordered. Risk Prescription drug management. A) COPD Exacerbation with Hypoxemia Disposition/Condition: Admit, Nebs, IV steroid, IVF's, Telemetry, Supplemental O2 as needed. ED Disposition None Discharge Medications: Patient's Medications START taking these medications No medications on file CONTINUE taking these medications which have NOT CHANGED ALBUTEROL 2.5 MG /3 ML (0.083 %) NEBULIZER SOLUTION Inhale 3 mL every 2 (two) hours as needed for Shortness of Breath or Wheezing. FLUTICASONE-SALMETEROL (ADVAIR DISKUS) 100-50 MCG/DOSE INHALATION DISK Inhale 1 Puff every 12 (twelve) hours. GUAIFENESIN 100 MG/5 ML SOLUTION Take 10 mL by mouth every 4 (four) hours as needed for Cough. IPRATROPIUM-ALBUTEROL 0.5 MG-3 MG(2.5 MG BASE)/3 ML NEBULIZER SOLUTION USE 1 VIAL IN NEBULIZER EVERY 4 HOURS NEEDED FOR WHEEZING OR SHORTNESS OF BREATH NICOTINE 14 MG/24 HR PATCH Apply 1 Patch to area(s) every 24 (twenty-four) hours for 30 days. START taking Modified Medications as Prescribed No medications on file STOP taking these medications No medications on file Electronically signed by: Wili Chauhan MD 11/13/22 0216 [facility]
[2024-09-03 02:16] LABS: Arterial Blood Carboxyhemoglob 2.1 % (0-1.5); Blood Gas Oxyhemoglobin 95.4 % (94-97); Blood Gas THB 13.8 g/dl (12-18); Blood O2 Saturation 99.1 % (92-98.5)
[2024-09-03 02:30] LABS: Absolute Basophils 0.1 K/uL (0-0.5); Absolute Eosinophils 0.8 K/uL (0-0.5); Absolute Lymphocytes (CBC) 1.7 K/uL (0.7-4.9); Absolute Monocytes 0.6 K/uL (0.1-1.3); Absolute Neutrophil 7.6 K/uL (1.8-8.0); Basophils % 1.3 % (0-1.3); Eosinophils % 7.7 % (0-4.4); Hematocrit 45.5 % (39.6-49.0); Hemoglobin 15.1 g/dL (13.6-17.9); Lymphocytes % 15.4 % (15.3-44.8); MCH 29.7 pg (27.0-35.0); MCHC 33.1 g/dL (32.0-36.0); MCV 89.7 fL (80-100); MPV 8.5 fL (7.6-11.3); Monocytes % 5.5 % (3.3-12.3); Neutrophils % 70.1 % (41.7-73.7); Nucleated Red Blood Cells % 0.1 % (0-0); Platelets 367 thou/uL (152-406); RBC Red Blood Cell Count 5.07 M/uL (4.33-5.43); Red Cell Distribution Width 14.6 % (12.1-15.2)
[2024-09-03 02:40] LABS: Albumin 3.3 g/dL (3.4-5.0); Albumin/Globulin Ratio 0.8 (1.1-1.8); Alkaline Phosphatase 145 U/L (45-117); Bilirubin Total 0.3 mg/dL (0.2-1.0); Creatine Phosphokinase 50 U/L (39-308); Globulin 3.9 g/dL (2.3-3.5); Lipase 20 U/L (13-75); Magnesium 2.2 mg/dL (1.6-2.4); NT PRO-BNP 68 pg/mL (<125); Protein, Total 7.2 g/dL (6.4-8.2); Troponin High Sensitivity 5.8 pg/mL (<58.9)
[2024-09-03 02:43] LABS: ALT/SGPT < 14 U/L (16-61); AST/SGOT < 10 U/L (15-37); Bilirubin Direct < 0.2 mg/dL (0-0.2); Bilirubin Indirect, Calculated 0.1 mg/dL (0.2-0.8); Influenza A Ag Negative; Influenza B Ag Negative; SARS-CoV-2 Antigen Rapid Res Negative (Negative)
[2024-09-03 02:48] LABS: PT Prothrombin Time 11.4 SECONDS (10-13.0); PTT, Activated Partial Thromb 44.1 SECONDS (27.2-37.4)
--- NOTE | 2024-09-03 03:14 | ER ---
Nurse's Notes [facility] Name: Iron Haynes Age: 64 yrs Sex: Male : 1960 Arrival Date: 09/03/2024 Time: 01:43 Bed 2 Private MD: Diagnosis: COPD/ Chronic obstructive pulmonary disease with (acute) exacerbation;Acute respiratory failure with hypercarbia, acute respiratory acidosis Presentation: 09/03 01:47 Chief complaint: Patient states: shortness of breath that started two days ago. cp4 Coronavirus screen: Client denies travel out of the [place] in the last 14 days. At this time, the client does not indicate any symptoms associated with coronavirus-19. Ebola Screen: Patient negative for fever greater than or equal to 101.5 degrees Fahrenheit, and additional compatible Ebola Virus Disease symptoms Patient denies exposure to infectious person. Patient denies travel to an Ebola-affected area in the 21 days before illness onset. No symptoms or risks identified at this time. Initial Sepsis Screen: Does the patient meet any 2 criteria? No. Patient's initial sepsis screen is negative. Does the patient have a suspected source of infection? No. Patient's initial sepsis screen is negative. Risk Assessment: Do you want to hurt yourself or someone else? Patient reports no desire to harm self or others. Onset of symptoms was September 01, 2024. 01:47 Method Of Arrival: Wheelchair cp4 01:47 Acuity: EDUARD 3 cp4 Triage Assessment: 01:49 General: Appears distressed, uncomfortable, Behavior is calm, cooperative, appropriate cp4 for age. Pain: Denies pain. EENT: No signs and/or symptoms were reported regarding the EENT system. Neuro: Level of Consciousness is awake, alert, obeys commands, Oriented to person, place, time, situation. Cardiovascular: Patient's skin is warm and dry. Rhythm is sinus rhythm. Respiratory: Reports shortness of breath at rest Airway is patent Respiratory effort is even, labored, Breath sounds with wheezes bilaterally. Onset: The symptoms/episode began/occurred yesterday, the patient has moderate shortness of breath. GI: No signs and/or symptoms were reported involving the gastrointestinal system. : No signs and/or symptoms were reported regarding the genitourinary system. Derm: No signs and/or symptoms reported regarding the dermatologic system. Musculoskeletal: No signs and/or symptoms reported regarding the musculoskeletal system. Historical: - Allergies: 01:49 Codeine; cp4 - PMHx: :49 COPD; osteomyelitis; cp4 - PSHx: 01:49 Bilateral Inguinal Hernia Repair; toe amputation; cp4 - Immunization history:: Adult Immunizations up to date. - Infectious Disease History:: Denies. - Social history:: Smoking status: Patient reports the use of cigarette tobacco products, smokes one pack cigarettes per day. - Family history:: not pertinent. Screenin:51 [facility] ED Fall Risk Assessment (Adult) History of falling in the last 3 months, cp4 including since admission No falls in past 3 months (0 pts) Confusion or Disorientation No (0 pts) Intoxicated or Sedated No (0 pts) Impaired Gait No (0 pts) Mobility Assist Device Used No (0 pt) Altered Elimination No (0 pt) Score/Fall Risk Level 0 - 2 = Low Risk Oriented to surroundings, Maintained a safe environment, Assessed \T\ reinforced patient's understanding of fall precautions, Hourly rounding (assess needs \T\ fall precautionary measures) done. Abuse screen: Denies threats or abuse. Denies injuries from another. Nutritional screening: No deficits noted. Tuberculosis screening: No symptoms or risk factors identified. Assessment: 01:51 Reassessment: No changes from previously documented assessment. Cardiovascular: cp4 Patient's skin is warm and dry. Rhythm is sinus rhythm. 02:56 Reassessment: Patient appears in no apparent distress at this time. Patient and/or al5 family updated on plan of care and expected duration. Pain level reassessed. Patient is alert, oriented x 3, equal unlabored respirations, skin warm/dry/pink. patient no longer wants to be on the BiPAP machine, notified provider, provider at bedside. work of breathing has decreased. 04:14 Reassessment: Patient appears in no apparent distress at this time. No changes from al5 previously documented assessment. Patient and/or family updated on plan of care and expected duration. Pain level reassessed. Patient is alert, oriented x 3, equal unlabored respirations, skin warm/dry/pink. 05:23 Reassessment: Patient appears in no apparent distress at this time. No changes from al5 previously documented assessment. Patient and/or family updated on plan of care and expected duration. Pain level reassessed. Patient is alert, oriented x 3, equal unlabored respirations, skin warm/dry/pink. Vital Signs: 01:47 BP 121 / 81; Pulse 86; Resp 18; Temp 98.2; Pulse Ox 100% on 15 lpm Non-rebreather mask; cp4 Weight 57.15 kg; Height 5 ft. 10 in. ; Pain 0/10; 02:09 BP 124 / 74; Pulse 91; Resp 25; Pulse Ox 100% on BiPAP; al5 02:30 BP 111 / 75; Pulse 86; Resp 23; Pulse Ox 100% on BiPAP; al5 03:00 BP 108 / 70; Pulse 91; Resp 23; Pulse Ox 99% on BiPAP; al5 03:30 BP 104 / 74; Pulse 87; Resp 26; Pulse Ox 97% on BiPAP; al5 04:00 BP 91 / 69; Pulse 89; Resp 18; Pulse Ox 95% on BiPAP; al5 04:30 BP 113 / 72; Pulse 82; Resp 21; Pulse Ox 95% on BiPAP; al5 05:00 BP 99 / 68; Pulse 102; Resp 16; Pulse Ox 95% on BiPAP; al5 01:47 Body Mass Index 18.08 (57.15 kg, 177.8 cm) cp4 01:47 Pain Scale: Adult cp4 Rufus Coma Score: 05:54 Eye Response: spontaneous(4). Motor Response: obeys commands(6). Verbal Response: sp4 oriented(5). Total: 15. ED Course: 01:46 Patient arrived in ED. cp4 01:48 Jw Edward MD is Attending Physician. sp4 01:49 Triage completed. cp4 01:49 Arm band placed on right wrist. Patient placed in an exam room, on a stretcher. cp4 01:51 Placed in gown. Bed in low position. Call light in reach. Side rails up X2. cp4 01:51 No provider procedures requiring assistance completed. Initial lab(s) drawn, by ED cp4 staff, sent to lab. EKG done, by ED staff, reviewed by Jw Edward MD. Inserted saline lock: 20 gauge in right forearm, using aseptic technique. Blood collected. Flushed with 10 mL NS. 02:09 May Pan, [facility] is Primary Nurse. al5 02:17 XRAY CXR (1 view) In Process Unspecified. EDMS 03:13 Vincent Barrett MD is Hospitalizing Provider. sp4 04:47 Extremity Venous Uni Ltd US In Process Unspecified. EDMS 05:56 Provided Education on: need for admission, BiPAP, vapotherm. al5 05:56 Patient admitted, IV remains in place. al5 Administered Medications: 02:01 Drug: Dextromethorphan-Guaifenesin PO Liquid 10 mg-100 mg/5 mL 10 ml PO once Route: PO; cp4 03:38 Follow up: Response: No adverse reaction al5 02:02 Drug: Albuterol Inhalation 2.5 mg Inhalation every 20 minutes x3 Route: Inhalation; cp4 02:02 Drug: Ipratropium Inhalation Aerosol 0.5 mg Inhalation once; Every 20 min for a total cp4 of 3 treatments x3 Route: Inhalation; 02:16 Drug: Ondansetron IVP 4 mg IVP once; over 2 minutes Route: IVP; Site: right forearm; cp4 03:38 Follow up: Response: No adverse reaction al5 02:17 Drug: Albuterol Inhalation 2.5 mg Inhalation every 20 minutes x3 Route: Inhalation; cp4 02:17 Drug: Ipratropium Inhalation Aerosol 0.5 mg Inhalation once; Every 20 min for a total cp4 of 3 treatments x3 Route: Inhalation; 02:17 Drug: MethylPrednisoLONE IVP 125 mg IVP once Route: IVP; Site: right forearm; cp4 03:38 Follow up: Response: No adverse reaction al5 02:17 Drug: Cefepime IVPB 2 grams IVPB at 200 ml/hr once over 30 mins; (mix in NS 100 mL) cp4 Route: IVPB; Rate: 200 ml/hr; Infused Over: 30 mins; Site: right forearm; 02:44 Follow up: IV Status: Completed infusion cp4 02:38 Drug: Albuterol Inhalation 2.5 mg Inhalation every 20 minutes x3 Route: Inhalation; al5 03:38 Follow up: Response: No adverse reaction al5 02:38 Drug: Ipratropium Inhalation Aerosol 0.5 mg Inhalation once; Every 20 min for a total al5 of 3 treatments x3 Route: Inhalation; 03:39 Follow up: Response: No adverse reaction al5 02:44 Drug: vancoMYCIN IVPB 1 grams IVPB once over 2 hrs Route: IVPB; Infused Over: 2 hrs; cp4 Site: right forearm; 05:24 Follow up: Response: No adverse reaction; IV Status: Completed infusion; IV Intake: al5 250ml 03:37 Drug: Ativan IVP 0.5 mg IVP once Route: IVP; Site: right forearm; al5 05:24 Follow up: Response: No adverse reaction; Anxiety decreased al5 03:37 Drug: morphine IVP or IV 2 mg IVP once over 4 mins Route: IVP; Infused Over: 4 mins; al5 Site: right forearm; 05:24 Follow up: Response: No adverse reaction; Pain is decreased al5 Medication: 01:51 VIS not applicable for this client. cp4 Intake: 05:24 IV: 250ml; Total: 250ml. al5 Outcome: 03:13 Decision to Hospitalize by Provider. sp4 07:05 Admitted to ICU accompanied by nurse, accompanied by tech, via stretcher, room ICU 7, al5 with oxygen, on monitor, with chart, Report called to [facility]MA Bartlett 07:05 Condition: stable 07:05 Instructed on the need for admit, 07:06 Patient left the ED. al5 Signatures: Dispatcher [employer] Jw Mendoza MD MD sp4 Dahiana Eldridge cp4 May Pan RN RN al5 Corrections: (The following items were deleted from the chart) 03:40 02:56 Reassessment: Patient appears in no apparent distress at this time. No changes al5 from previously documented assessment. Patient and/or family updated on plan of care and expected duration. Pain level reassessed. Patient is alert, oriented x 3, equal unlabored respirations, skin warm/dry/pink. patient no longer wants to be on the BiPAP machine, notified provider, provider at bedside al5
--- NOTE | 2024-09-03 03:14 | EDPHYS ---
Physician Documentation [facility] Name: Iron Haynes Age: 64 yrs Sex: Male : 1960 Arrival Date: 09/03/2024 Time: 01:43 Bed 2 Private MD: ED Physician Jw Edward HPI: 09/03 01:48 This 64 yrs old Male presents to ER via Unassigned with complaints of sp4 Shortness Of Breath. 05:54 64-year-old male with history of COPD, history of oxygen dependence history of sp4 osteomyelitis and physical debility presents with moderate to severe shortness of breath developing the last several days. 05:54 Patient reported marked worsening in her shortness of breath in the last 2 days. sp4 Patient is dependent on oxygen concentrator.. Historical: - Allergies: 01:49 Codeine; cp4 - PMHx: 01:49 COPD; osteomyelitis; cp4 - PSHx: 01:49 Bilateral Inguinal Hernia Repair; toe amputation; cp4 - Immunization history:: Adult Immunizations up to date. - Infectious Disease History:: Denies. - Social history:: Smoking status: Patient reports the use of cigarette tobacco products, smokes one pack cigarettes per day. - Family history:: not pertinent. ROS: 05:54 Constitutional: Negative for fever, chills, and weight loss, positive for dyspnea and sp4 cough 05:54 All other systems are negative, Exam: 05:54 Constitutional: Patient is physically debilitated thin male ill-appearing and in acute sp4 respiratory distress. Tachycardic and hypoxemic on arrival Head/Face: Normocephalic, atraumatic. Eyes: Pupils equal round and reactive to light, extra-ocular motions intact. Lids and lashes normal. Conjunctiva and sclera are not injected. Cornea within normal limits. Periorbital areas with no swelling, redness, or edema. ENT: Nares patent. No nasal discharge, no septal abnormalities noted. Tympanic membranes are normal and external auditory canals are clear. Oropharynx with no redness, swelling, or masses, exudates, or evidence of obstruction, uvula midline. Mucous membranes moist. Neck: Trachea midline, no thyromegaly or masses palpated, and no cervical lymphadenopathy. Supple, full range of motion without nuchal rigidity, or vertebral point tenderness. Chest/axilla: Normal chest wall appearance and motion. Nontender with no deformity. No lesions are appreciated. Cardiovascular: Regular rate and rhythm with a normal S1 and S2. No gallops, murmurs, or rubs. Normal PMI, no JVD. No pulse deficits. Respiratory: Lungs have equal breath sounds bilaterally, clear to auscultation and percussion. No rales, rhonchi or wheezes noted. No increased work of breathing, no retractions or nasal flaring. Abdomen/GI: Soft, with normal bowel sounds. No distension or tympany. No guarding or rebound. No evidence of tenderness throughout. Back: No spinal tenderness. No costovertebral tenderness. Skin: Warm, dry with normal turgor. Normal color with no rashes, no lesions, and no evidence of cellulitis. MS/ Extremity: Pulses equal, no cyanosis. Neurovascular intact. Full, normal range of motion. Neuro: Awake and alert, GCS 15, oriented to person, place, time, and situation. Cranial nerves II-XII grossly intact. Motor strength 5/5 in all extremities. Sensory grossly intact. Psych: Awake, alert, with orientation to person, place and time. Behavior, mood, and affect are within normal limits 05:54 ECG was reviewed by the Attending Physician. EKG sinus rhythm rate 86 Vital Signs: 01:47 BP 121 / 81; Pulse 86; Resp 18; Temp 98.2; Pulse Ox 100% on 15 lpm Non-rebreather mask; cp4 Weight 57.15 kg; Height 5 ft. 10 in. ; Pain 0/10; 02:09 BP 124 / 74; Pulse 91; Resp 25; Pulse Ox 100% on BiPAP; al5 02:30 BP 111 / 75; Pulse 86; Resp 23; Pulse Ox 100% on BiPAP; al5 03:00 BP 108 / 70; Pulse 91; Resp 23; Pulse Ox 99% on BiPAP; al5 03:30 BP 104 / 74; Pulse 87; Resp 26; Pulse Ox 97% on BiPAP; al5 04:00 BP 91 / 69; Pulse 89; Resp 18; Pulse Ox 95% on BiPAP; al5 04:30 BP 113 / 72; Pulse 82; Resp 21; Pulse Ox 95% on BiPAP; al5 05:00 BP 99 / 68; Pulse 102; Resp 16; Pulse Ox 95% on BiPAP; al5 01:47 Body Mass Index 18.08 (57.15 kg, 177.8 cm) cp4 01:47 Pain Scale: Adult cp4 Malachi Coma Score: 05:54 Eye Response: spontaneous(4). Motor Response: obeys commands(6). Verbal Response: sp4 oriented(5). Total: 15. MDM: 01:53 Medical Screening Exam initiated sp4 05:59 ED course: CLINICAL HISTORY: Chest pain. COMPARISON: None. TECHNIQUE: XR CHEST 1 VIEW sp4 09/03/2024 1:49 AM CDT FINDINGS: Cardiac silhouette is normal in size. Lungs are clear without consolidation, atelectasis, mass or edema. There are probable small pleural effusions. There is no pneumothorax. There are no acute osseous findings. IMPRESSION: Small pleural effusions without definite pneumonia. Electronically signed by: Jaime Campbell MD 09/03/2024 . 06:03 Differential diagnosis: Anxiety Reaction asthma, Bronchitis CHF exacerbation, Chronic sp4 Obstructive Pulmonary Disease pneumonia. Data reviewed: vital signs, nurses notes, lab test result(s), EKG, radiologic studies, plain films, ultrasound. Consideration of Admission/Observation Patient was admitted/placed on observation. Escalation of care including admission/observation considered. Management of patient was discussed with the following: Hospitalist: Discussed with the admission team. 06:04 Antibiotic administration: Vancomycin and cefepime ordered.. ED course: Negative for sp4 DVT in the left lower extremity.. ED course: Patient stable for admission to intensive care unit with BiPAP. 09/03 01:49 Order name: Blood Culture Adult (2) 4 09/03 01:49 Order name: CBC with Diff; Complete Time: 03:10 sp4 09/03 01:49 Order name: CPK; Complete Time: 05:20 sp4 09/03 01:49 Order name: Hepatic Function; Complete Time: 05:20 sp4 09/03 01:49 Order name: Lipase; Complete Time: 05:20 sp4 09/03 01:49 Order name: Magnesium; Complete Time: 05:20 sp4 09/03 01:49 Order name: NT PRO-BNP; Complete Time: 05:20 sp4 09/03 01:49 Order name: PT-INR; Complete Time: 03:10 sp4 09/03 01:49 Order name: Ptt, Activated; Complete Time: 03:10 sp4 09/03 01:49 Order name: Troponin HS; Complete Time: 05:20 sp4 09/03 01:49 Order name: ABG sp4 09/03 01:50 Order name: CRP; Complete Time: 05:20 sp4 09/03 01:51 Order name: COVID-19 Ag + Flu A+B Ag; Complete Time: 03:10 4 09/03 01:53 Order name: Lactate w/ 2H reflex if indic.; Complete Time: 03:10 sp4 09/03 02:15 Order name: ABG Arterial Blood Gas; Complete Time: 03:10 [facility] 09/03 03:51 Order name: Basic Metabolic Panel; Complete Time: 05:20 [facility] 09/03 05:21 Order name: ABG 4 09/03 01:49 Order name: XRAY CXR (1 view) [facility] 09/03 01:50 Order name: Extremity Venous Uni Ltd US [facility] 09/03 01:49 Order name: Call RT; Complete Time: : sp4 09/03 05:29 Order name: CONS Physician Consult [facility] 09/03 01:49 Order name: Cardiac monitoring; Complete Time: : sp4 09/03 01:49 Order name: EKG - Nurse/Tech; Complete Time: sp09/03 01:49 Order name: IV Saline Lock; Complete Time: 53 sp4 09/03 01:49 Order name: Labs collected and sent; Complete Time: :53 4 09/03 01:49 Order name: O2 Per Protocol; Complete Time: sp09/03 01:49 Order name: O2 Sat Monitoring; Complete Time: sp09/03 05:33 Order name: O2 Per Protocol: Vapotherm therapy; Complete Time: 05: sp4 09/03 05:33 Order name: O2 Sat Monitoring; Complete Time: 05:51 sp4 EC:42 Rate is 86 beats/min. Rhythm is regular, Sinus tachycardia. QRS Burchard is Normal. VA sp4 interval is normal. QRS interval is normal. QT interval is normal. No Q waves. T waves are Normal. No ST changes noted. Clinical impression: No evidence of ischemia. Interpreted by me. Reviewed by me. Administered Medications: 02:01 Drug: Dextromethorphan-Guaifenesin PO Liquid 10 mg-100 mg/5 mL 10 ml PO once Route: PO; cp4 03:38 Follow up: Response: No adverse reaction al5 02:02 Drug: Albuterol Inhalation 2.5 mg Inhalation every 20 minutes x3 Route: Inhalation; cp4 02:02 Drug: Ipratropium Inhalation Aerosol 0.5 mg Inhalation once; Every 20 min for a total cp4 of 3 treatments x3 Route: Inhalation; 02:16 Drug: Ondansetron IVP 4 mg IVP once; over 2 minutes Route: IVP; Site: right forearm; cp4 03:38 Follow up: Response: No adverse reaction al5 02:17 Drug: Albuterol Inhalation 2.5 mg Inhalation every 20 minutes x3 Route: Inhalation; cp4 02:17 Drug: Ipratropium Inhalation Aerosol 0.5 mg Inhalation once; Every 20 min for a total cp4 of 3 treatments x3 Route: Inhalation; 02:17 Drug: MethylPrednisoLONE IVP 125 mg IVP once Route: IVP; Site: right forearm; cp4 03:38 Follow up: Response: No adverse reaction al5 02:17 Drug: Cefepime IVPB 2 grams IVPB at 200 ml/hr once over 30 mins; (mix in NS 100 mL) cp4 Route: IVPB; Rate: 200 ml/hr; Infused Over: 30 mins; Site: right forearm; 02:44 Follow up: IV Status: Completed infusion cp4 02:38 Drug: Albuterol Inhalation 2.5 mg Inhalation every 20 minutes x3 Route: Inhalation; al5 03:38 Follow up: Response: No adverse reaction al5 02:38 Drug: Ipratropium Inhalation Aerosol 0.5 mg Inhalation once; Every 20 min for a total al5 of 3 treatments x3 Route: Inhalation; 03:39 Follow up: Response: No adverse reaction al5 02:44 Drug: vancoMYCIN IVPB 1 grams IVPB once over 2 hrs Route: IVPB; Infused Over: 2 hrs; cp4 Site: right forearm; 05:24 Follow up: Response: No adverse reaction; IV Status: Completed infusion; IV Intake: al5 250ml 03:37 Drug: Ativan IVP 0.5 mg IVP once Route: IVP; Site: right forearm; al5 05:24 Follow up: Response: No adverse reaction; Anxiety decreased al5 03:37 Drug: morphine IVP or IV 2 mg IVP once over 4 mins Route: IVP; Infused Over: 4 mins; al5 Site: right forearm; 05:24 Follow up: Response: No adverse reaction; Pain is decreased al5 Disposition: 03:12 Critical Care:. sp4 Disposition Summary: 09/03/24 03:13 Hospitalization Ordered Notes: Hospitalization Status: Inpatient Admission sp4 Provider: Vincent Barrett sp4 Location: Intensive Care Unit sp4 Condition: Serious sp4 Problem: new sp4 Symptoms: have improved sp4 Bed/Room Type: Standard sp4 Room Assignment: 7-(09/03/24 05:46) [place] Diagnosis - COPD/ Chronic obstructive pulmonary disease with (acute) exacerbation sp4 - Acute respiratory failure with hypercarbia, acute respiratory acidosis sp4 Forms: - Medication Reconciliation Form sp4 - SBAR form sp4 - Leadership Thank You Letter sp4 Critical care time excluding procedures: 03:12 Critical care time: Bedside Care: 36 minutes, Consultation: 12 minutes, Family sp4 Intervention: 12 minutes. Total time: 60 minutes Signatures: Dispatcher [employer] EDSabrina Veloz RN RN kl Potepalov, Sergey, MD MD sp4 Dahiana Eldridge Amanda, RN RN al5 Corrections: (The following items were deleted from the chart) 01:50 01:50 BLOOD CULTURE*+BA.LAB.BRZ ordered. EDMS EDMS 01:50 01:50 CBC+H.LAB.BRZ ordered. EDMS EDMS 01:50 01:50 CREATINE PHOSPHOKINASE+C.LAB.BRZ ordered. EDMS EDMS 01:50 01:50 HEPATIC FUNCTION+C.LAB.BRZ ordered. EDMS EDMS 01:50 01:50 LIPASE+C.LAB.BRZ ordered. EDMS EDMS 01:50 01:50 MAGNESIUM+C.LAB.BRZ ordered. EDMS EDMS 01:50 01:50 PROBNP+C.LAB.BRZ ordered. EDMS EDMS 01:50 01:50 PROTIME (+INR)+COAG.LAB.BRZ ordered. EDMS EDMS 01:50 01:50 PTT, ACTIVATED+COAG.LAB.BRZ ordered. EDMS EDMS 01:50 01:50 Troponin High Sensitivity+C.LAB.BRZ ordered. EDMS EDMS 01:50 01:50 Chest Single View+RAD.RAD.BRZ ordered. EDMS EDMS 01:50 01:50 Arterial Blood Gas+RC.LAB.BRZ ordered. EDMS EDMS 01:50 01:50 BiPap ([employer] Only)+RC.RAD.BRZ ordered. EDMS EDMS 01:52 01:52 COVID-19 Ag + Flu A+B Ag+I.LAB.BRZ ordered. EDMS EDMS 03:51 01:50 BASIC METABOLIC PANEL+C.LAB.BRZ ordered. EDMS EDMS 05:46 03:13 sp4 kl 06:03 05:54 ECG was reviewed by the Attending Physician. EKG at 2134 sinus tachycardia rate sp4 132 sp4 06:03 05/06 21:34 Rate is 132 beats/min. Rhythm is regular, Sinus tachycardia. QRS Burchard is sp4 Normal. VA interval is normal. QRS interval is normal. QT interval is normal. No Q waves. T waves are Normal. No ST changes noted. Clinical impression: No evidence of ischemia. Interpreted by me. Reviewed by me. sp4
[2024-09-03] MEDS ORDERED: MORPHINE 2 MG/ML SYR ONE (03:31)
[2024-09-03] MEDS ORDERED: LORazepam 2 MG/ML VIAL ONE (03:32)
[2024-09-03 04:00] LABS: BUN Blood Urea Nitrogen 7 mg/dL (7-18); Bicarbonate 34 mEq/L (21-32); Glomerular Filtration Rate 101 ml/min (=/>90); Glucose Level 112 mg/dL (74-106); Sodium Level 139 mEq/L (136-145)
--- NOTE | 2024-09-03 05:41 | RAD REPORT ---
CLINICAL HISTORY: Chest pain. COMPARISON: None. TECHNIQUE: XR CHEST 1 VIEW 09/03/2024 1:49 AM CDT FINDINGS: Cardiac silhouette is normal in size. Lungs are clear without consolidation, atelectasis, mass or felecia ma. There are probable small pleural effusions. There is no pneumothorax. There are no acute osseous findings. IMPRESSION: Small pleural effusions without definite pneumonia. Electronically signed by: Jaime Campbell MD 09/03/2024 03:33 AM CDT RP Due to temporary technical issues with the PACS/[employer] reporting system, reports are being kelli d by the in-house radiologist without review as a courtesy to ensure prompt reporting. The interpreting radiologist is fully responsible for the content of the report. Transcribed Date/Time: 09/03/2024 5:41 AM
[2024-09-03 06:06] LABS: Arterial Blood Carboxyhemoglob 1.7 % (0-1.5); Blood Gas Oxyhemoglobin 91.9 % (94-97); Blood Gas THB 13.8 g/dl (12-18); Blood O2 Saturation 95.2 % (92-98.5)
[2024-09-03] MEDS ORDERED: dilTIAZem HCL 25 MG/5 ML VIAL IV ONE (06:20)
[2024-09-03] MEDS ORDERED: NA CHLORIDE 0.9% 50 ML ONE (06:20)
--- NOTE | 2024-09-03 07:27 | P.HP ---
Certification for Inpatient With expected LOS: <2 Midnights Patient will require the following post-hospital care: None Practitioner: I am a practitioner with admitting privileges, knowledge of patient current condition, hospital course, and medical plan of care. Services: Services provided to patient in accordance with Admission requirements found in Title 42 Section 412.3 of the Code of Federal Regulations Patient History Date of Service: 09/03/24 Allergies codeine Adverse Reaction (Verified 10/29/22 09:54) Nausea/Vomiting Home Medications: Ipratropium/Albuterol Sulfate [Iprat-Albut 0.5-3(2.5) mg/3 ml] 3 ml NEB Q4H PRN 10/30/22 Albuterol Neb [Proventil 0.083% Neb Soln] 2.5 mg NEB Q6HP PRN #60 amp 12/06/22 Azithromycin Tab [Zithromax*] 250 mg PO DAILY #5 tab 12/06/22 Benzonatate [Tessalon Perle*] 100 mg PO TID PRN #30 cap 12/06/22 Ipratropium Neb [Atrovent*] 0.5 mg NEB [id number] #60 amp 12/06/22 Roflumilast [Daliresp*] 500 mcg PO DAILY #30 tab 12/06/22 predniSONE [Prednisone*] 20 mg PO BID #20 tab 12/06/22 - Past Medical/Surgical History Diabetic: No -: COPD -: rt small toe amputation 06/2021 -: PAD -: Psoriasis. -: Right small toe amputation 2019 -: Umbilical hernia repair x 2. -: Cholecystectomy. Psychosocial/ Personal History: Patient lives at home with family - Family History Mother -: Diabetes - Social History Smoking Status: Current every day smoker Alcohol use: No CD- Drugs: No Caffeine use: Yes Place of Residence: Home Review of Systems 10-point ROS is otherwise unremarkable Respiratory: Shortness of Breath, SOB with Excertion, Wheezing Integumentary: Other (Generalized skin psoriasis) Physical Examination - Vital Signs Pulse: 81 Pulse Ox (%): 96 - Physical Exam General: Alert, Oriented x3, Cooperative HEENT: Atraumatic, Normocephalic, PERRLA, Mucous membr. moist/pink Neck: Supple, 2+ carotid pulse no bruit, Without JVD or thyroid abnormality Respiratory: Diminished, Crackles/rales, Expiratory wheezes, Inspiratory wheezes Cardiovascular: Normal pulses, Regular rate/rhythm, Normal S1 S2, No gallops, No rubs, No murmurs Capillary refill: <2 Seconds Gastrointestinal: Normal bowel sounds, No ascites, No tenderness Musculoskeletal: No clubbing, No tenderness Integumentary: Other (Generalized body psoriasis.) Neurological: Normal strength at 5/5 x4 extr, Normal tone, Sensation intact, Cranial nerves 3-12 intact, Normal reflexes 2+ Lymphatics: No axilla or inguinal lymphadenopathy Rectal: Normal - Studies Laboratory Data (last 24 hrs) 09/03/24 09/03/24 09/03/24 02:01 02:01 02:01 WBC 10.90 Hgb 15.1 Hct 45.5 Plt Count 367 PT 11.4 INR 1.00 APTT 44.1 H Sodium 139 Potassium 4.0 BUN 7 Creatinine 0.77 Glucose 112 H Magnesium 2.2 Total Bilirubin 0.3 AST < 10 L ALT < 14 L Alkaline Phosphatase 145 H Lipase 20 09/03/24 01:49 WBC Hgb Hct Plt Count PT INR APTT Sodium Cancelled Potassium Cancelled BUN Cancelled Creatinine Cancelled Glucose Cancelled Magnesium Total Bilirubin AST ALT Alkaline Phosphatase Lipase Male Exam - Male Exam Inguinal exam: No hernias Testicular exam: Non-tender Prostate: Benign Assessment and Plan - Plan Patient is a pleasant 64-year-old male with past medical history of bilateral lower extremities PVD, and PAD post remote stent placement right leg due to occlusion, umbilical hernia, COPD, who reports to ER today complaining of worsening shortness of breath associated with bilateral expiratory expiratory wheezing, and chest tightness secondary to his profound shortness of breath. Patient states his shortness of breath started 2 days ago, states despite being on 3 L of oxygen at home, and took his DuoNeb every 4 hours as ordered, his symptoms progressively worsened which then prompted him to report to the ER. On arrival to ER, patient was in severe respiratory distress, was then placed on BiPAP. On admission assessment, while on BiPAP, patient states he felt much better, still with moderate bilateral expiratory inspiratory wheezing, and poor aeration, but currently in no acute respiratory distress. Patient is able to communicate in full sentences. Consulted client director Dr. Black, text him the consult message this morning, but did not respond prior to my departure. (1) Acute on chronic COPD exacerbation. -Admit to ICU. -Continuous BiPAP. -Order follow-up ABG -Budesonide nebulizer treatment 0.5 mg twice daily. -Consult client director Dr. Black to assist in the management of patient respiratory status. Text him the message this morning, but has not received a response prior to my departure. -Will move forward to order Solu-Medrol. - Explained the entire treatment plan to the patient, solicit questions answered and voiced understanding. Discharge Plan: Home Plan to discharge in: 72 Hours - Advance Directives Does patient have a Living Will: No Does patient have a Durable POA for Healthcare: No - Code Status/Comfort Care Code Status Assessed: Yes Code Status: Full Code
[2024-09-03] MEDS: IPRATROPIUM BROM 0.5MG/2.5ML NEB SCH ×2 (07:43→13:05)
[2024-09-03] MEDS: BUDESONIDE 0.5 MG/2 ML NEB NEB SCH (07:43)
[2024-09-03] MEDS: ALBUTEROL 2.5 MG/3 ML NEB SOL NEB SCH (07:43)
[2024-09-03] MEDS ORDERED: ONDANSETRON 4 MG/2 ML VIAL IV PRN (08:00)
--- NOTE | 2024-09-03 08:15 | RAD REPORT ---
EXAMINATION: Extremity Venous Uni Ltd CLINICAL HISTORY: left leg swelling COMPARISON: None TECHNIQUE: Grayscale and color-flow Doppler images of the left lower extremity were obtained. Spectra l Doppler analysis was performed. FINDINGS: The visualized veins of the deep venous system are patent. No echogenic thrombus noted. The veins are normally compressible with normal augmentation and respiratory variation. IMPRESSION: No DVT in the lower extremity. RECOMMENDATIONS: Electronically signed by: Jaylon Griffith MD 09/03/2024 06:48 AM CDT D ue to temporary technical issues with the PACS/[email or web address] reporting system, reports are being signed by the in-house radiologist without review as a courtesy to ensure prompt reporting the [facility] radiologist is fully responsible for the content of the report. Transcribed Date/Time: 09/03/2024 8:15 AM
[2024-09-03] MEDS: ENOXAPARIN 40 MG/0.4 ML SQ SCH (09:06)
[2024-09-03] MEDS: DEXMEDETOMIDINE HCL 1,000 MCG in NA CHLORIDE 0.9% 490 ML IV SCH (10:29)
[2024-09-03] MEDS: FLU (Fluarix Triv) TS24-25(6MOS UP)/PF 45 MCG/0.5 ML Syringe IM ONE (11:00)
[2024-09-03] MEDS: CEFEPIME 2 GM in NA CHLORIDE 0.9% 100 ML IV SCH ×3 (12:04→16:40)
--- NOTE | 2024-09-03 12:06 | P.CNS ---
Date of Consult: 09/03/24 Reason for Consult: COPD exacerbation Chief Complaint: Shortness of breath History of Present Illness: Patient is 64 years of age admitted with shortness of breath he is nonverbal apparently he has had recurrent hospitalizations to [facility] history of oxygen depen dence osteomyelitis he has been worse over the past few days is on oxygen Continues to remain agitated admitted with hypercapnic respiratory failure Allergies codeine Adverse Reaction (Verified 10/29/22 09:54) Nausea/Vomiting Home Medications: Ipratropium/Albuterol Sulfate [Iprat-Albut 0.5-3(2.5) mg/3 ml] 3 ml NEB Q4H PRN 10/30/22 Albuterol Neb [Proventil 0.083% Neb Soln] 2.5 mg NEB Q6HP PRN #60 amp 12/06/22 Azithromycin Tab [Zithromax*] 250 mg PO DAILY #5 tab 12/06/22 Ipratropium Neb [Atrovent*] 0.5 mg NEB [id number] #60 amp 12/06/22 Atorvastatin Calcium 40 mg PO BEDTIME 09/03/24 Pramipexole [Mirapex*] 0.25 mg PO BEDTIME 09/03/24 - Past Medical/Surgical History Diabetic: No -: COPD -: rt small toe amputation 06/2021 -: PAD -: Psoriasis. -: Right small toe amputation 2019 -: Umbilical hernia repair x 2. -: Cholecystectomy. Psychosocial/ Personal History: Patient lives at home with family - Family History Mother Medical History: Diabetes - Social History Smoking Status: Current every day smoker Alcohol use: No CD- Drugs: No Caffeine use: Yes Place of Residence: Home Review of Systems is unable to be obtained Physical Examination Temp Pulse Resp BP Pulse Ox 99.0 F 64 19 91/60 100 09/03/24 08:00 09/03/24 11:00 09/03/24 11:00 09/03/24 11:00 09/03/24 11:00 General: Unresponsive Respiratory: Clear to auscultation bilaterally, Expiratory wheezes Cardiovascular: No edema, Regular rate/rhythm, Normal S1 S2 Gastrointestinal: Normal bowel sounds, Soft and benign Laboratory Data (last 24 hrs) 09/03/24 09/03/24 09/03/24 02:01 02:01 02:01 WBC 10.90 Hgb 15.1 Hct 45.5 Plt Count 367 PT 11.4 INR 1.00 APTT 44.1 H Sodium 139 Potassium 4.0 BUN 7 Creatinine 0.77 Glucose 112 H Magnesium 2.2 Total Bilirubin 0.3 AST < 10 L ALT < 14 L Alkaline Phosphatase 145 H Lipase 20 09/03/24 01:49 WBC Hgb Hct Plt Count PT INR APTT Sodium Cancelled Potassium Cancelled BUN Cancelled Creatinine Cancelled Glucose Cancelled Magnesium Total Bilirubin AST ALT Alkaline Phosphatase Lipase - Problems (1) Respiratory failure Current Visit: Yes Status: Acute Plan: Patient is 64 years of age with a history of COPD recurrent hospital admissions to [facility] mated with hypercapnic respiratory failure COPD changes onset on chest x-ray labs reviewed bicarbonate is elevated blood pressure is in the lower side continue with bronchodilators and steroids patient is hypotensive possible underlying sepsis he had multiple hospitalizations in the past treated with broad-spectrum antibiotics vancomycin and cefepime until cultures are back also did nasal culture for the possibility of MRSA Qualifiers: Chronicity: acute on chronic
[2024-09-03] MEDS: NA CHLORIDE 0.9% 1,000 ML IV SCH (12:20)
[2024-09-03] MEDS: METHYLPREDNISOLONE 40 MG INJ IV SCH (12:20)
[2024-09-03] MEDS: THIAMINE 200 MG/2 ML INJ IVP SCH (12:20)
[2024-09-03] MEDS: VANCOMYCIN 500 MG in NA CHLORIDE 0.9% 100 ML IVPB ONE (12:40)
[2024-09-03] MEDS: NA CHLORIDE 0.9% 1,000 ML IV ONE (13:23)
[2024-09-03] MEDS: NOREPINEPHRINE BITARTRATE/D5W 4 MG/250 ML BAG IV SCH (15:26)
--- NOTE | 2024-09-03 16:45 | P.CNS ---
Date of Consult: 09/03/24 Chief Complaint: Shortness of breath History of Present Illness: Patient with PMH of COPD on home oxygen 3L, PAD s/p multiple interventions by IR, presented with worsening SOB, REDDY, denies chest pain, no palpitations, no syncope. Allergies codeine Adverse Reaction (Verified 10/29/22 09:54) Nausea/Vomiting Home medications list reviewed: Yes Home Medications: RX: Ipratropium/Albuterol Sulfate [Iprat-Albut 0.5-3(2.5) mg/3 ml] 3 ml NEB Q4H PRN 10/30/22 RX: Albuterol Neb [Proventil 0.083% Neb Soln] 2.5 mg NEB Q6HP PRN #60 amp 12/06/22 RX: Azithromycin Tab [Zithromax*] 250 mg PO DAILY #5 tab 12/06/22 RX: Ipratropium Neb [Atrovent*] 0.5 mg NEB [id number] #60 amp 12/06/22 RX: Atorvastatin Calcium 40 mg PO BEDTIME 09/03/24 RX: Pramipexole [Mirapex*] 0.25 mg PO BEDTIME 09/03/24 - Past Medical/Surgical History Diabetic: No -: COPD -: rt small toe amputation 06/2021 -: PAD -: Psoriasis. -: Right small toe amputation 2019 -: Umbilical hernia repair x 2. -: Cholecystectomy. Psychosocial/ Personal History: Patient lives at home with family - Family History Mother Medical History: Diabetes - Social History Smoking Status: Current every day smoker Alcohol use: No CD- Drugs: No Caffeine use: Yes Place of Residence: Home Review of Systems 10-point ROS is otherwise unremarkable Physical Examination Temp Pulse Resp BP Pulse Ox 98.2 F 46 L 16 104/62 100 09/03/24 14:04 09/03/24 16:15 09/03/24 16:15 09/03/24 16:15 09/03/24 16:15 General: Alert, In no apparent distress HEENT: Atraumatic, PERRLA, Mucous membr. moist/pink, EOMI, Sclerae nonicteric Neck: Supple, 2+ carotid pulse no bruit, No LAD, Without JVD or thyroid abnormality Respiratory: Clear to auscultation bilaterally, Normal air movement Cardiovascular: Regular rate/rhythm, Normal S1 S2 Gastrointestinal: Normal bowel sounds, No tenderness Musculoskeletal: No tenderness Integumentary: No rashes Neurological: Normal gait, Normal speech, Normal tone, Normal affect Lymphatics: No axilla or inguinal lymphadenopathy Laboratory Data (last 24 hrs) 09/03/24 09/03/24 09/03/24 02:01 02:01 02:01 WBC 10.90 Hgb 15.1 Hct 45.5 Plt Count 367 PT 11.4 INR 1.00 APTT 44.1 H Sodium 139 Potassium 4.0 BUN 7 Creatinine 0.77 Glucose 112 H Magnesium 2.2 Total Bilirubin 0.3 AST < 10 L ALT < 14 L Alkaline Phosphatase 145 H Lipase 20 09/03/24 01:49 WBC Hgb Hct Plt Count PT INR APTT Sodium Cancelled Potassium Cancelled BUN Cancelled Creatinine Cancelled Glucose Cancelled Magnesium Total Bilirubin AST ALT Alkaline Phosphatase Lipase - Problems (1) Hypotension Current Visit: Yes Status: Acute Plan: Patient BP is soft, currently requiring levophed, patient echo back in 2022, shows normal LV systolic and diastolic function, patient CRP elevated which might indicate presence of infection, recommend getting an updated echo, continue to trend cardiac enzymes and continue vasopressors support with broad spectrum ABX coverage. (2) Bradycardia Current Visit: Yes Status: Acute Plan: get echo continue to monitor on tele correct acidosis (3) Respiratory failure Current Visit: Yes Status: Acute Plan: advised patient that he need to wear his BiPAP machine, he agrees to use. Qualifiers: Chronicity: acute on chronic
[2024-09-03] MEDS: VANCOMYCIN 1 GM in NA CHLORIDE 0.9% 250 ML IVPB SCH (21:05)
[2024-09-03] MEDS ORDERED: VANCOMYCIN 1 GM in NA CHLORIDE 0.9% 250 ML IVPB SCH (22:00)
[2024-09-04 05:32] LABS: Absolute Basophils 0.1 K/uL (0-0.5); Absolute Lymphocytes (CBC) 0.6 K/uL (0.7-4.9); Absolute Monocytes 0.3 K/uL (0.1-1.3); Absolute Neutrophil 12.3 K/uL (1.8-8.0); Basophils % 0.5 % (0-1.3); Hematocrit 36.3 % (39.6-49.0); Hemoglobin 12.1 g/dL (13.6-17.9); Lymphocytes % 4.7 % (15.3-44.8); MCHC 33.3 g/dL (32.0-36.0); MPV 8.5 fL (7.6-11.3); Monocytes % 2.4 % (3.3-12.3); Neutrophils % 92.4 % (41.7-73.7); Platelets 402 thou/uL (152-406); RBC Red Blood Cell Count 4.03 M/uL (4.33-5.43); Red Cell Distribution Width 14.2 % (12.1-15.2)
[2024-09-04 05:46] LABS: Albumin 2.9 g/dL (3.4-5.0); Alkaline Phosphatase 103 U/L (45-117); Anion Gap 5.6 mEq/L (5.0-15.0); BUN Blood Urea Nitrogen 12 mg/dL (7-18); Bicarbonate 34 mEq/L (21-32); Bilirubin Total 0.2 mg/dL (0.2-1.0); Globulin 2.9 g/dL (2.3-3.5); Glomerular Filtration Rate 106 ml/min (=/>90); Glucose Level 168 mg/dL (74-106); Potassium 4.6 mEq/L (3.5-5.1); Protein, Total 5.8 g/dL (6.4-8.2); Sodium Level 138 mEq/L (136-145)
[2024-09-04 05:47] LABS: ALT/SGPT < 14 U/L (16-61); AST/SGOT < 10 U/L (15-37)
[2024-09-04] MEDS: PRAMIPEXOLE 0.25 MG TAB PO SCH ×2 (05:54→06:38)
[2024-09-04 07:21] LABS: Atypical Lymphocytes 1 %; Band Neutrophils 1 % (0-1); Blood Morphology Comment NOT SEEN (NOT SEEN); Differential Total Cells Count 100; Lymphocytes 4 % (15-42); Platelet Estimate ADEQ; Segmented Neutrophils 93 % (40-80)
[2024-09-04] MEDS: ALPRAZOLAM 0.25 MG TABLET PO PRN (07:37)
[2024-09-04] MEDS: NA CHLORIDE 0.9% 1,000 ML IV ONE (08:35)
[2024-09-04] MEDS: THIAMINE HCL 100 MG TABLET PO SCH (08:35)
[2024-09-04] MEDS: hydrOXYzine HCL 25 MG TAB PO SCH (08:41)
[2024-09-04] MEDS: ROFLUMILAST 500 MCG TABLET PO SCH ×2 (09:00→13:14)
[2024-09-04 10:10] LABS: Blood O2 Saturation 99.2 % (92-98.5)
[2024-09-04 10:11] LABS: Arterial Blood Carboxyhemoglob 0.7 % (0-1.5); Blood Gas Oxyhemoglobin 97.7 % (94-97); Blood Gas THB 11.6 g/dl (12-18)
--- NOTE | 2024-09-04 10:13 | P.PN ---
Subjective Date of Service: 09/04/24 Chief Complaint: Shortness of breath Subjective: No new changes Review of Systems 10-point ROS is otherwise unremarkable Physical Examination - Vital Signs Temperature: 97.8 F Blood Pressure: 91/51 Pulse: 55 Respirations: 20 Pulse Ox (%): 94 - Physical Exam General: Alert, In no apparent distress HEENT: Atraumatic, PERRLA, EOMI Neck: Supple, JVD not distended Respiratory: Clear to auscultation bilaterally, Normal air movement Cardiovascular: Regular rate/rhythm, Normal S1 S2 Gastrointestinal: Normal bowel sounds, No tenderness Musculoskeletal: No tenderness Integumentary: No rashes Neurological: Normal speech, Normal tone, Normal affect Lymphatics: No axilla or inguinal lymphadenopathy - Studies Medications List Reviewed: Yes Assessment And Plan - Current Problems (Diagnosis) (1) Hypotension Current Visit: Yes Status: Acute Plan: Patient BP is better, titrating down levophed, patient echo back in 2022, shows normal LV systolic and diastolic function, patient CRP elevated which might indicate presence of infection, recommend getting an updated echo, continue to trend cardiac enzymes and continue vasopressors support with broad spectrum ABX coverage. (2) Bradycardia Current Visit: Yes Status: Acute Plan: get echo continue to monitor on tele correct acidosis can be secondary to levophed. (3) Respiratory failure Current Visit: Yes Status: Acute Plan: advised patient that he need to wear his BiPAP machine, he agrees to use. Qualifiers: Chronicity: acute on chronic
[2024-09-04] MEDS: ALBUTEROL 2.5 MG/3 ML NEB SOL NEB PRN (11:00)
--- NOTE | 2024-09-04 12:00 | ECHO ---
HEIGHT: 5 ft 10 in WEIGHT: 125 lb 0 oz DATE OF STUDY: 09/04/[address]: Yonathan Sanders MD 2-DIMENSIONAL: YES M.MODE: YES DOPPLER: YES COLOR FLOW: YES TDS: PORTABLE: YES DEFINITY: BUBBLE STUDY: DIAGNOSIS: CARDIAC OUTPUT CARDIAC HISTORY: CATHERIZATION: NO SURGERY: NO PROSTHETIC VALVE: NO PACEMAKER: NO MEASUREMENTS (cm) DIASTOLIC (NORMALS) SYSTOLIC (NORMALS) IVSd 0.9 (0.6-1.2) LA Diam 3.5 (1.9-4.0) LVEF 60-65% LVIDd 4.7 (3.5-5.7) LVIDs 2.5 (2.0-3.5) %FS 46% LVPWd 0.8 (0.6-1.2) Ao Diam 2.8 (2.0-3.7) 2 DIMENSIONAL ASSESSMENT: RIGHT ATRIUM: NORMAL LEFT ATRIUM: NORMAL RIGHT VENTRICLE: NORMAL LEFT VENTRICLE: NORMAL TRICUSPID VALVE: TRACE TRICUSPID REGURGITATION MITRAL VALVE: NORMAL PULMONIC VALVE: NORMAL AORTIC VALVE: NORMAL PERICARDIAL EFFUSION: NONE AORTIC ROOT: NORMAL LEFT VENTRICULAR WALL MOTION: NORMAL DOPPLER/COLOR FLOW: NORMAL COMMENTS: 1. NORMAL LEFT VENTRICULAR SYSTOLIC FUNCTION, EJECTION FRACTION 60-65%, NORMAL WALL MOTION 2. NORMAL DIASTOLIC FUNCTION 3. DILATED INFERIOR VENA CAVA TECHNOLOGIST: MILAD BONILLA
--- NOTE | 2024-09-04 12:09 | P.PN ---
Date of Service: 09/04/24 Subjective: Resting in bed. loader technician at bedside. Weaning Levophed. Endorses cough Review of Systems 10-point ROS is otherwise unremarkable Respiratory: Shortness of Breath, SOB with Excertion, Wheezing Integumentary: Other (Generalized skin psoriasis) Physical Examination - Vital Signs Pulse: 81 Pulse Ox (%): 96 - Physical Exam General: Alert, Oriented x3, Cooperative HEENT: Atraumatic, Normocephalic, PERRLA, Mucous membr. moist/pink Neck: Supple, 2+ carotid pulse no bruit, Without JVD or thyroid abnormality Respiratory: Diminished, Crackles/rales, Expiratory wheezes, Inspiratory wheezes Cardiovascular: Normal pulses, Regular rate/rhythm, Normal S1 S2, No gallops, No rubs, No murmurs Capillary refill: <2 Seconds Gastrointestinal: Normal bowel sounds, No ascites, No tenderness Musculoskeletal: No clubbing, No tenderness Integumentary: Other (Generalized body psoriasis.) Neurological: Normal strength at 5/5 x4 extr, Normal tone, Sensation intact, Cranial nerves 3-12 intact, Normal reflexes 2+ Lymphatics: No axilla or inguinal lymphadenopathy Rectal: Normal - Studies Laboratory Data (last 24 hrs) 09/03/24 09/03/24 09/03/24 02:01 02:01 02:01 WBC 10.90 Hgb 15.1 Hct 45.5 Plt Count 367 PT 11.4 INR 1.00 APTT 44.1 H Sodium 139 Potassium 4.0 BUN 7 Creatinine 0.77 Glucose 112 H Magnesium 2.2 Total Bilirubin 0.3 AST < 10 L ALT < 14 L Alkaline Phosphatase 145 H Lipase 20 09/03/24 01:49 WBC Hgb Hct Plt Count PT INR APTT Sodium Cancelled Potassium Cancelled BUN Cancelled Creatinine Cancelled Glucose Cancelled Magnesium Total Bilirubin AST ALT Alkaline Phosphatase Lipase Male Exam - Male Exam Inguinal exam: No hernias Testicular exam: Non-tender Prostate: Benign Assessment and Plan - Plan Patient is a pleasant 64-year-old male with past medical history of bilateral lower extremities PVD, and PAD post remote stent placement right leg due to occlusion, umbilical hernia, COPD, who reports to ER today complaining of worsening shortness of breath associated with bilateral expiratory expiratory wheezing, and chest tightness secondary to his profound shortness of breath. Patient states his shortness of breath started 2 days ago, states despite being on 3 L of oxygen at home, and took his DuoNeb every 4 hours as ordered, his symp toms progressively worsened which then prompted him to report to the ER. On arrival to ER, patient was in severe respiratory distress, was then placed on BiPAP. On admission assessment, while on BiPAP, patient states he felt much better, still with moderate bilateral expiratory inspiratory wheezing, and poor aeration, but currently in no acute respiratory distress. Patient is able to communicate in full sentences. Consulted maint mechanic Dr. Black, text him the consult message this morning, but did not respond prior to my departure. (1) Acute on chronic COPD exacerbation. Weaning BiPAP as able -Order follow-up ABG -Budesonide nebulizer treatment 0.5 mg twice daily. -Appreciate Dr. Black recommendations -Wean IV steroids -Echo pending 2. Hypotension /sepsis -Continue cefepime and vancomycin -MRSA nasal culture pending Peripheral arterial disease Right toe amputation History of alcoholism Hydroxyzine for agitation anxiety Continue thiamine and multivitamin Discharge Plan: Home Plan to discharge in: 72 Hours - Advance Directives Does patient have a Living Will: No Does patient have a Durable POA for Healthcare: No - Code Status/Comfort Care Code Status Assessed: Yes Code Status: Full Code
--- NOTE | 2024-09-04 12:40 | P.PN ---
Subjective Date of Service: 09/04/24 Chief Complaint: COPD exacerbation Patient is 64 years of age he is more alert today complaining of worsening for the past 2 days he has recurrent hospital admissions to [facility] complains of anxiety is hypoxic hypercapnic Review of Systems 10-point ROS is otherwise unremarkable General: Weakness Respiratory: Shortness of Breath Physical Examination - Vital Signs Temperature: 97.8 F Blood Pressure: 93/54 Pulse: 68 Respirations: 20 Pulse Ox (%): 95 - Physical Exam General: Alert, In no apparent distress, Oriented x3 Respiratory: Clear to auscultation bilaterally, Diminished, Expiratory wheezes Cardiovascular: No edema, Regular rate/rhythm, Normal S1 S2 - Studies Medications List Reviewed: Yes Assessment And Plan - Current Problems (Diagnosis) (1) Respiratory failure Current Visit: Yes Status: Acute Plan: Patient is 64 years of age with a history of COPD recurrent hospital admissions admitted with an exacerbation complains of severe anxiety elevated hydroxyzine labs chemistries reviewed no DVT normal left ventricular function cultures are negative echocardiogram is normal chest x-ray hyperinflated DC IV antibiotics wean off Levophed with IV fluid boluses as the patient is currently stable will change consultant to p.o. antibiotics p.o. steroids add Daliresp stable to be transferred to the floor BiPAP as needed Qualifiers: Chronicity: acute on chronic
[2024-09-04] MEDS ORDERED: ALBUTEROL 2.5 MG/3 ML NEB SOL NEB PRN (12:49)
[2024-09-04] MEDS: DULERA 200/5 (MOMETASONE/FORMOTEROL) INHALER IH SCH (21:00)
[2024-09-04] MEDS: predniSONE 20 MG TAB PO SCH (21:17)
[2024-09-04] MEDS: Mupirocin NASAL 2 APPL/1 GM TUBE NAS SCH (21:17)
[2024-09-04] MEDS: ENSURE ENLIVE 237 ML CAN PO SCH (21:26)
--- NOTE | 2024-09-05 05:34 | RAD REPORT ---
EXAM DESCRIPTION: XR CHEST 1 VIEW 09/05/2024 2:19 AM CDT CLINICAL HISTORY: 64 years, Male, PICC line placement. COMPARISON: XR Chest 09/03/2024. FINDINGS: 1 view of the chest (AP portable projection) was obtained. Prior films were compared. There is hype rinflation. There is a right upper extremity PICC line tip within the superior vena cava/cavoatrial junction in g ood position. Mediastinum: The cardiomediastinal silhouette appears normal in size and shape. Lungs: There is a focal area of airspace opacity within the right lower lung zone. Heart: The heart is normal in size. Thoracic aorta: The thoracic aorta demonstrate to be normal. Pulmonary vasculature: The pulmonary vasculature is normal in distribution. Pleura: The costophrenic angles demonstrate to be sharp. Osseous structures: The bony structures demonstrate to be within normal limits. Other: External EKG leads within the [id number] limits diagnosis. IMPRESSION: Right upper extremity PICC line in good position. Focal area of airspace opacity right lower lung zone. Electronically signed by: Colt Carrizales MD 09/05/2024 02:27 AM CDT RP Due to temporary technical issues with the [employer] reporting system, reports are being kelli d by the in-house radiologist without review as a courtesy to ensure prompt reporting the interpreting radiologist is fully responsible for the content of the report. Transcribed Date/Time: 09/05/2024 5:34 AM
[2024-09-05 06:33] LABS: ALT/SGPT < 14 U/L (16-61); AST/SGOT < 10 U/L (15-37); Albumin 2.6 g/dL (3.4-5.0); Alkaline Phosphatase 92 U/L (45-117); Anion Gap 3.2 mEq/L (5.0-15.0); BUN Blood Urea Nitrogen 15 mg/dL (7-18); Bicarbonate 37 mEq/L (21-32); Bilirubin Total < 0.2 mg/dL (0.2-1.0); Globulin 2.6 g/dL (2.3-3.5); Glomerular Filtration Rate 121 ml/min (=/>90); Glucose Level 144 mg/dL (74-106); Potassium 4.2 mEq/L (3.5-5.1); Protein, Total 5.2 g/dL (6.4-8.2); Sodium Level 143 mEq/L (136-145)
[2024-09-05] MEDS: levoFLOXacin 750 MG TAB PO SCH (08:18)
[2024-09-05 09:18] LABS: Specific Gravity 1.012 (1.005-1.030); Urine Bilirubin NEGATIVE (Negative); Urine Blood Negative (Negative); Urine Clarity Clear (Clear); Urine Color Colorless (Yellow); Urine Glucose NEGATIVE (Negative); Urine Ketones NEGATIVE (Negative); Urine Microscopic Reflex YN NO UMIC; Urine Nitrite NEGATIVE (Negative); Urine Protein NEGATIVE (Negative); Urine Urobilinogen Normal (Normal); Urine pH 5.5 (5.0-7.0)
[2024-09-05 09:25] LABS: Absolute Basophils 0.1 K/uL (0-0.5); Absolute Lymphocytes (CBC) 0.5 K/uL (0.7-4.9); Absolute Monocytes 0.3 K/uL (0.1-1.3); Absolute Neutrophil 9.8 K/uL (1.8-8.0); Basophils % 0.7 % (0-1.3); Eosinophils % 0.1 % (0-4.4); Hematocrit 31.4 % (39.6-49.0); Hemoglobin 10.5 g/dL (13.6-17.9); Lymphocytes % 4.6 % (15.3-44.8); MCH 29.9 pg (27.0-35.0); MCHC 33.5 g/dL (32.0-36.0); MCV 89.5 fL (80-100); Monocytes % 3.1 % (3.3-12.3); Neutrophils % 91.5 % (41.7-73.7); Platelets 306 thou/uL (152-406); RBC Red Blood Cell Count 3.51 M/uL (4.33-5.43); Red Cell Distribution Width 14.4 % (12.1-15.2)
[2024-09-05] MEDS: DEXMEDETOMIDINE HCL 200 MCG/2 ML VIAL ONE (11:27)
--- NOTE | 2024-09-05 11:50 | RAD REPORT ---
EXAM: Chest Single View HISTORY: 64 years Male shortness of breath COMPARISON: Earlier in the day FINDINGS: LUNGS/PLEURA: Hyperinflated lungs. Mild opacities in the medial right lung base could represent pneum onia. CARDIAC/MEDIASTINUM: The cardiac silhouette is within normal limits. UPPER ABDOMEN: No significant abnormality. BONES: No acute abnormality. Remote left-sided rib fracture. LINES/TUBES/OTHER: Right subclavian approach PICC with tip overlying the mid SVC in satisfactory posi tion. IMPRESSION: Lungs remain hyperinflated with mild opacities at the medial right lung base could reflect pneumonia or pneumonitis.
[2024-09-05 11:59] LABS: Arterial Blood Carboxyhemoglob 0.7 % (0-1.5); Blood Gas Oxyhemoglobin 91.8 % (94-97); Blood O2 Saturation 93.2 % (92-98.5)
[2024-09-05 12:00] LABS: Blood Gas THB 11.3 g/dl (12-18)
--- NOTE | 2024-09-05 12:09 | P.PN ---
Date of Service: 09/05/24 Subjective: He is agitated and tachypneic this morning. Per ICU nursing staff he is having a panic attack. Discussed restarting Precedex. Denies fevers and chills. Stat chest x-ray ordered Review of Systems 10-point ROS is otherwise unremarkable Respiratory: Shortness of Breath, SOB with Excertion, Wheezing Integumentary: Other (Generalized skin psoriasis) Physical Examination - Vital Signs Pulse: 81 Pulse Ox (%): 96 - Physical Exam General: Alert, Oriented x3, Cooperative HEENT: Atraumatic, Normocephalic, PERRLA, Mucous membr. moist/pink Neck: Supple, 2+ carotid pulse no bruit, Without JVD or thyroid abnormality Respiratory: Diminished, Crackles/rales, Expiratory wheezes, Inspiratory wheezes Cardiovascular: Normal pulses, Regular rate/rhythm, Normal S1 S2, No gallops, No rubs, No murmurs Capillary refill: <2 Seconds Gastrointestinal: Normal bowel sounds, No ascites, No tenderness Musculoskeletal: No clubbing, No tenderness Integumentary: Other (Generalized body psoriasis.) Neurological: Normal strength at 5/5 x4 extr, Normal tone, Sensation intact, Cranial nerves 3-12 intact, Normal reflexes 2+ Lymphatics: No axilla or inguinal lymphadenopathy Rectal: Normal - Studies Laboratory Data (last 24 hrs) 09/03/24 09/03/24 09/03/24 02:01 02:01 02:01 WBC 10.90 Hgb 15.1 Hct 45.5 Plt Count 367 PT 11.4 INR 1.00 APTT 44.1 H Sodium 139 Potassium 4.0 BUN 7 Creatinine 0.77 Glucose 112 H Magnesium 2.2 Total Bilirubin 0.3 AST < 10 L ALT < 14 L Alkaline Phosphatase 145 H Lipase 20 09/03/24 01:49 WBC Hgb Hct Plt Count PT INR APTT Sodium Cancelled Potassium Cancelled BUN Cancelled Creatinine Cancelled Glucose Cancelled Magnesium Total Bilirubin AST ALT Alkaline Phosphatase Lipase Male Exam - Male Exam Inguinal exam: No hernias Testicular exam: Non-tender Prostate: Benign Assessment and Plan - Plan Patient is a pleasant 64-year-old male with past medical history of bilateral lower extremities PVD, and PAD post remote stent placement right leg due to occlusion, umbilical hernia, COPD, who reports to ER today complaining of worsening shortness of breath associated with bilateral expiratory expiratory wheezing, and chest tightness secondary to his profound shortness of breath. Patient states his shortness of breath started 2 days ago, states despite being on 3 L of oxygen at home, and took his DuoNeb every 4 hours as ordered, his symptoms progressively worsened which then prompted him to report to the ER. On arrival to ER, patient was in severe respiratory distress, was then placed on BiPAP. On admission assessment, while on BiPAP, patient states he felt much better, still with moderate bilateral expiratory inspiratory wheezing, and poor aeration, but currently in no acute respiratory distress. Patient is able to communicate in full sentences. Consulted chalk molding machine operator Dr. Black, text him the consult message this morning, but did not respond prior to my departure. Acute on chronic COPD exacerbation. -Weaning BiPAP as able -Stat chest x-ray and ABG reviewed today -Budesonide nebulizer treatment 0.5 mg twice daily. -Appreciate Dr. Black recommendations -Now on Levaquin -Echo with normal EF and no significant abnormalities Hypotension /sepsis -Resolving -Continue cefepime and vancomycin -MRSA nasal culture pending Peripheral arterial disease Right toe amputation Currently stable History of alcoholism Hydroxyzine for agitation anxiety As needed Xanax Continue thiamine and multivitamin Restart Precedex drip Discharge Plan: Home Plan to discharge in: 72 Hours - Advance Directives Does patient have a Living Will: No Does patient have a Durable POA for Healthcare: No - Code Status/Comfort Care Code Status Assessed: Yes Code Status: Full Code
[2024-09-05] MEDS: PROMETHAZINE-DM 5 ML OSYR PO PRN (12:48)
[2024-09-05] MEDS: hydrOXYzine HCL 25 MG TAB PO SCH (12:48)
[2024-09-05] MEDS: AZITHROMYCIN 250 MG TAB PO SCH (12:48)
[2024-09-06 05:17] LABS: Absolute Lymphocytes (CBC) 0.4 K/uL (0.7-4.9); Absolute Monocytes 0.3 K/uL (0.1-1.3); Absolute Neutrophil 6.6 K/uL (1.8-8.0); Basophils % 0.1 % (0-1.3); Hematocrit 33.1 % (39.6-49.0); Hemoglobin 11.2 g/dL (13.6-17.9); Lymphocytes % 5.4 % (15.3-44.8); MCH 30.3 pg (27.0-35.0); MCHC 33.8 g/dL (32.0-36.0); MCV 89.7 fL (80-100); MPV 8.4 fL (7.6-11.3); Monocytes % 3.9 % (3.3-12.3); Platelets 235 thou/uL (152-406); RBC Red Blood Cell Count 3.69 M/uL (4.33-5.43); Red Cell Distribution Width 14.4 % (12.1-15.2)
[2024-09-06 05:24] LABS: Neutrophils % 90.6 % (41.7-73.7)
[2024-09-06 05:34] LABS: Anion Gap 4.3 mEq/L (5.0-15.0); Magnesium 2.2 mg/dL (1.6-2.4); Potassium 4.3 mEq/L (3.5-5.1)
[2024-09-06] MEDS: ALPRAZOLAM 0.25 MG TABLET PO ONE (08:49)
[2024-09-06] MEDS: ALPRAZOLAM 0.5 MG TABLET PO PRN (13:09)
--- NOTE | 2024-09-06 15:36 | P.PN ---
Date of Service: 09/06/24 Subjective: Doing better today. Increase Xanax to 0.5. Weaning Precedex drip. Vitals remained stable. He is breathing on room air currently and no longer having panic attacks. Review of Systems 10-point ROS is otherwise unremarkable Respiratory: Shortness of Breath, SOB with Excertion, Wheezing Integumentary: Other (Generalized skin psoriasis) Physical Examination - Vital Signs Pulse: 81 Pulse Ox (%): 96 - Physical Exam General: Alert, Oriented x3, Cooperative HEENT: Atraumatic, Normocephalic, PERRLA, Mucous membr. moist/pink Neck: Supple, 2+ carotid pulse no bruit, Without JVD or thyroid abnormality Respiratory: Diminished, Crackles/rales, Expiratory wheezes, Inspiratory wheezes Cardiovascular: Normal pulses, Regular rate/rhythm, Normal S1 S2, No gallops, No rubs, No murmurs Capillary refill: <2 Seconds Gastrointestinal: Normal bowel sounds, No ascites, No tenderness Musculoskeletal: No clubbing, No tenderness Integumentary: Other (Generalized body psoriasis.) Neurological: Normal strength at 5/5 x4 extr, Normal tone, Sensation intact, Cranial nerves 3-12 intact, Normal reflexes 2+ Lymphatics: No axilla or inguinal lymphadenopathy Rectal: Normal - Studies Laboratory Data (last 24 hrs) 09/03/24 09/03/24 09/03/24 02:01 02:01 02:01 WBC 10.90 Hgb 15.1 Hct 45.5 Plt Count 367 PT 11.4 INR 1.00 APTT 44.1 H Sodium 139 Potassium 4.0 BUN 7 Creatinine 0.77 Glucose 112 H Magnesium 2.2 Total Bilirubin 0.3 AST < 10 L ALT < 14 L Alkaline Phosphatase 145 H Lipase 20 09/03/24 01:49 WBC Hgb Hct Plt Count PT INR APTT Sodium Cancelled Potassium Cancelled BUN Cancelled Creatinine Cancelled Glucose Cancelled Magnesium Total Bilirubin AST ALT Alkaline Phosphatase Lipase Male Exam - Male Exam Inguinal exam: No hernias Testicular exam: Non-tender Prostate: Benign Assessment and Plan - Plan Patient is a pleasant 64-year-old male with past medical history of bilateral lower extremities PVD, and PAD post remote stent placement right leg due to occlusion, umbilical hernia, COPD, who reports to ER today complaining of worsening shortness of breath associated with bilateral expiratory expiratory wheezing, and chest tightness secondary to his profound shortness of breath. Patient states his shortness of breath started 2 days ago, states despite being on 3 L of oxygen at home, and took his DuoNeb every 4 hours as ordered, his symptoms progressively worsened which then prompted him to report to the ER. On arrival to ER, patient was in severe respiratory distress, was then placed on BiPAP. On admission assessment, while on BiPAP, patient states he felt much better, still with moderate bilateral expiratory inspiratory wheezing, and poor aeration, but currently in no acute respiratory distress. Patient is able to communicate in full sentences. Consulted hand sewer Dr. Black, text him the consult message this morning, but did not respond prior to my departure. Acute on chronic COPD exacerbation. -Weaning BiPAP as able -Stat chest x-ray and ABG reviewed today -Budesonide nebulizer treatment 0.5 mg twice daily. -Appreciate Dr. Black recommendations -Now on Levaquin -Echo with normal EF and no significant abnormalities Panic attack Continue Xanax 0.5 as needed - Wean Precedex as able - BiPAP for panic attack Hypotension /sepsis -Resolving -Continue cefepime and vancomycin -MRSA nasal culture pending Peripheral arterial disease Right toe amputation Currently stable History of alcoholism Hydroxyzine for agitation anxiety As needed Xanax Continue thiamine and multivitamin Restart Precedex drip Discharge Plan: Home Plan to discharge in: 72 Hours - Advance Directives Does patient have a Living Will: No Does patient have a Durable POA for Healthcare: No - Code Status/Comfort Care Code Status Assessed: Yes Code Status: Full Code
[2024-09-07 05:34] LABS: Magnesium 2.3 mg/dL (1.6-2.4)
--- NOTE | 2024-09-07 10:26 | P.PN ---
Subjective Date of Service: 09/07/24 Chief Complaint: COPD exacerbation Patient's condition is improving brother at the bedside has significant problems with anxiety shortness of breath has improved Review of Systems General: Weakness Respiratory: Shortness of Breath Physical Examination - Vital Signs Temperature: 99.3 F Blood Pressure: 114/70 Pulse: 89 Respirations: 26 Pulse Ox (%): 96 - Physical Exam General: Alert, Oriented x3, Mild distress Respiratory: Clear to auscultation bilaterally, Diminished Cardiovascular: No edema, Regular rate/rhythm, Normal S1 S2 - Studies Medications List Reviewed: Yes Assessment And Plan - Current Problems (Diagnosis) (1) Respiratory failure Current Visit: Yes Status: Acute Plan: Patient is 64 years of age admitted with acute on chronic respiratory failure secondary to COPD exacerbation complains of significant anxiety have added Abilify in addition to citalopram not sure if he has underlying bipolar disorder as previously patient did not respond to citalopram DC levofloxacin changed to cefuroxime Meds labs all reviewed stable to be transferred to the floor patient weaned off Precedex Qualifiers: Chronicity: acute on chronic
--- NOTE | 2024-09-07 11:32 | P.PN ---
Date of Service: 09/07/24 Subjective: off precedex. doing better on xanx. now on 4L NC. toleraing oral intake. denies fever and chills Review of Systems 10-point ROS is otherwise unremarkable Respiratory: Shortness of Breath, SOB with Excertion, Wheezing Integumentary: Other (Generalized skin psoriasis) Physical Examination - Vital Signs Pulse: 81 Pulse Ox (%): 96 - Physical Exam General: Alert, Oriented x3, Cooperative HEENT: Atraumatic, Normocephalic, PERRLA, Mucous membr. moist/pink Neck: Supple, 2+ carotid pulse no bruit, Without JVD or thyroid abnormality Respiratory: Diminished, Crackles/rales, Expiratory wheezes, Inspiratory wheezes Cardiovascular: Normal pulses, Regular rate/rhythm, Normal S1 S2, No gallops, No rubs, No murmurs Capillary refill: <2 Seconds Gastrointestinal: Normal bowel sounds, No ascites, No tenderness Musculoskeletal: No clubbing, No tenderness Integumentary: Other (Generalized body psoriasis.) Neurological: Normal strength at 5/5 x4 extr, Normal tone, Sensation intact, Cranial nerves 3-12 intact, Normal reflexes 2+ Lymphatics: No axilla or inguinal lymphadenopathy Rectal: Normal - Studies Laboratory Data (last 24 hrs) 09/03/24 09/03/24 09/03/24 02:01 02:01 02:01 WBC 10.90 Hgb 15.1 Hct 45.5 Plt Count 367 PT 11.4 INR 1.00 APTT 44.1 H Sodium 139 Potassium 4.0 BUN 7 Creatinine 0.77 Glucose 112 H Magnesium 2.2 Total Bilirubin 0.3 AST < 10 L ALT < 14 L Alkaline Phosphatase 145 H Lipase 20 09/03/24 01:49 WBC Hgb Hct Plt Count PT INR APTT Sodium Cancelled Potassium Cancelled BUN Cancelled Creatinine Cancelled Glucose Cancelled Magnesium Total Bilirubin AST ALT Alkaline Phosphatase Lipase Male Exam - Male Exam Inguinal exam: No hernias Testicular exam: Non-tender Prostate: Benign Assessment and Plan - Plan Patient is a pleasant 64-year-old male with past medical history of bilateral lower extremities PVD, and PAD post remote stent placement right leg due to occlusion, umbilical hernia, COPD, who reports to ER today complaining of worsening shortness of breath associated with bilateral expiratory expiratory wheezing, and chest tightness secondary to his profound shortness of breath. Patient states his shortness of breath started 2 days ago, states despite being on 3 L of oxygen at home. On arrival to ER, patient was in severe respiratory distress, was then placed on BiPAP. On admission assessment, while on BiPAP, patient states he felt much better, still with moderate bilateral expiratory inspiratory wheezing, and poor aeration, but currently in no acute respiratory distress. Acute on chronic COPD exacerbation. -Weaning BiPAP as able -Stat chest x-ray and ABG reviewed today -Budesonide nebulizer treatment 0.5 mg twice daily. -Appreciate Dr. Black recommendations -Now on Ceftin -Echo with normal EF and no significant abnormalities Panic attack -Wean Precedex as able -Continue Xanax 0.5 mg as needed. - Continue Abilify and Celexa Hypotension /sepsis -Resolving -Continue cefepime and vancomycin -MRSA nasal culture pending Peripheral arterial disease Right toe amputation Currently stable History of alcoholism Hydroxyzine for agitation anxiety As needed Xanax Continue thiamine and multivitamin Restart Precedex drip Discharge Plan: Home Plan to discharge in: 72 Hours - Advance Directives Does patient have a Living Will: No Does patient have a Durable POA for Healthcare: No - Code Status/Comfort Care Code Status Assessed: Yes Code Status: Full Code
[2024-09-07] MEDS: CITALOPRAM 10 MG TABLET PO SCH (12:50)
[2024-09-07] MEDS: ARIPiprazole 5 MG TAB PO SCH (12:50)
[2024-09-07] MEDS: CEFUROXIME 250 MG TAB PO SCH (20:09)
--- NOTE | 2024-09-08 03:57 | P.PN ---
Subjective Date of Service: 09/08/24 Subjective: Improving Patient's clinical symptoms are improving. Will arrange for noninvasive ventilator to be sent home with the patient. We need to educate him regarding using the ventilator. Patient does get tachycardic whenever he moves around. Heart rate gets into the 120s and 130s. Will continue working with getting him some vital stabilized prior to discharging. Review of Systems 10-point ROS is otherwise unremarkable Physical Examination - Vital Signs Temperature: 97.7 F Blood Pressure: 127/83 Pulse: 75 Respirations: 22 Pulse Ox (%): 98 - Physical Exam General: Alert, In no apparent distress Respiratory: Diminished, Crackles/rales, Expiratory wheezes Cardiovascular: Regular rate/rhythm, Normal S1 S2, No murmurs Gastrointestinal: Normal bowel sounds, Soft and benign, Non-distended, No tenderness Musculoskeletal: No clubbing, No swelling, No tenderness Neurological: Other (No focal deficits) - Studies Microbiology Data (last 24 hrs): 09/03/24 02:01 Blood - Blood Aerobic Blood Culture - Final No growth in 5 days. 09/03/24 02:01 Blood - Blood Anaerobic Blood Culture - Final No growth in 5 days. 09/03/24 02:01 Blood - Blood Aerobic Blood Culture - Final No growth in 5 days. 09/03/24 02:01 Blood - Blood Anaerobic Blood Culture - Final No growth in 5 days. Medications List Reviewed: Yes Assessment & Plan - Problems (Diagnosis) (1) Acute respiratory failure with hypoxia and hypercapnia Current Visit: Yes Status: Acute (2) COPD with acute exacerbation Current Visit: Yes Status: Acute (3) Bradycardia Current Visit: Yes Status: Acute (4) Hypotension Current Visit: Yes Status: Acute (5) Tobacco use Current Visit: No Status: Acute (6) Psoriasis Current Visit: Yes Status: Acute - Plan 1. Acute hypoxic and hypercapnic respiratory failure; continue with BiPAP support as needed. Start acetazolamide for hypercapnia respiratory failure. Continue with neb treatments and steroid neb treatments as scheduled. Appreciate pulmonary consultation. 2. Patient with hypotension with sepsis; on cefepime and vancomycin. Clinical status has improved and can downgrade to oral antibiotics if okay with pulmonary 3. History of alcoholism with anxiety disorder; on hydroxyzine for agitation as well as Xanax. Continue with multivitamin and patient was on Precedex drip. Will continue to monitor pulmonary status 4. History of PAD; history of right toe amputation and will continue antiplatelet therapy and statin therapy 5. Anemia; normocytic and normochromic; iron and B12 level pending as well as reticulocyte count 6. GI and DVT prophylaxis Discharge Plan: Home Plan to discharge in: Greater than 2 days - Advance Directives Does patient have a Living Will: No Does patient have a Durable POA for Healthcare: No - Code Status/Comfort Care Code Status: Full Code Critical Care: No Time Spent Managing PTS Care (In Minutes): 35
[2024-09-08 05:22] LABS: Thyroid Stimulating Hormone 0.44 uIU/mL (0.358-3.740)
[2024-09-08] MEDS: acetaZOLAMIDE 250 MG TAB PO SCH (08:01)
--- NOTE | 2024-09-08 12:13 | EKG ---
Test Date: 2024-09-03 Test Time: 01:42:00 Videogame Designer: RICK MEASUREMENT RESULTS: Intervals: Rate: 86 CT: 148 QRSD: 98 QT: 368 QTc: 440 Whick: P: 84 CT: 148 QRS: 96 T: 71 INTERPRETIVE STATEMENTS: Normal sinus rhythm Right atrial enlargement Pulmonary disease pattern Incomplete right bundle branch block Possible Right ventricular hypertrophy Abnormal ECG Compared to ECG 12/03/2022 15:38:03 Atrial abnormality now present Incomplete right bundle-branch block now present Atrial premature complex(es) no longer present Fusion complex(es) no longer present ST (T wave) deviation no longer present Electronically Signed On 09-08-24 12:10:16 CDT by Yonathan Sanders
--- NOTE | 2024-09-08 12:36 | P.PN ---
Subjective Date of Service: 09/08/24 Chief Complaint: COPD exacerbation Patient is doing anxiety seems to be better controlled otherwise stable Review of Systems General: Weakness Respiratory: Shortness of Breath Physical Examination - Vital Signs Temperature: 97.5 F Blood Pressure: 106/75 Pulse: 82 Respirations: 19 Pulse Ox (%): 98 - Physical Exam General: Alert, In no apparent distress, Oriented x3 Respiratory: Clear to auscultation bilaterally, Diminished Cardiovascular: No edema, Regular rate/rhythm - Studies Microbiology Data (last 24 hrs): 09/03/24 02:01 Blood - Blood Aerobic Blood Culture - Final No growth in 5 days. 09/03/24 02:01 Blood - Blood Anaerobic Blood Culture - Final No growth in 5 days. 09/03/24 02:01 Blood - Blood Aerobic Blood Culture - Final No growth in 5 days. 09/03/24 02:01 Blood - Blood Anaerobic Blood Culture - Final No growth in 5 days. Medications List Reviewed: Yes Assessment And Plan - Current Problems (Diagnosis) (1) Respiratory failure Current Visit: Yes Status: Acute Plan: Patient admitted with respiratory failure anxiety seems to be under better controlled may have underlying bipolar illness as he did not respond to antidepressants before currently patient is on Abilify and hydroxyzine in addition to Xanax as needed he is stable to be transferred to the floor patient has chronic respiratory failure and will benefit from a noninvasive ventilator at home to prevent readmissions chronic respiratory failure is from severe COPD BiPAP is not suitable Qualifiers: Chronicity: acute on chronic
[2024-09-09 05:58] LABS: Absolute Lymphocytes (CBC) 0.4 K/uL (0.7-4.9); Absolute Monocytes 0.3 K/uL (0.1-1.3); Absolute Neutrophil 9.3 K/uL (1.8-8.0); Basophils % 0.2 % (0-1.3); Eosinophils % 0.2 % (0-4.4); Hematocrit 37.9 % (39.6-49.0); Hemoglobin 12.7 g/dL (13.6-17.9); Lymphocytes % 4.2 % (15.3-44.8); MCH 30.2 pg (27.0-35.0); MCHC 33.5 g/dL (32.0-36.0); MCV 90.2 fL (80-100); MPV 8.3 fL (7.6-11.3); Monocytes % 2.7 % (3.3-12.3); Neutrophils % 92.7 % (41.7-73.7); Platelets 303 thou/uL (152-406); Red Cell Distribution Width 14.7 % (12.1-15.2)
[2024-09-09 06:15] LABS: Anion Gap 6.1 mEq/L (5.0-15.0); Magnesium 2.3 mg/dL (1.6-2.4); Potassium 4.1 mEq/L (3.5-5.1)
[2024-09-09 07:19] LABS: Blood Morphology Comment NOT SEEN (NOT SEEN); Platelet Estimate ADEQ; White Blood Cell Scan OK (OK)
--- NOTE | 2024-09-09 12:11 | P.PN ---
Subjective Date of Service: 09/09/24 Chief Complaint: COPD exacerbation Patient states that he is feeling better anxiety is uncontrolled breathing has improved Review of Systems General: Weakness Respiratory: Shortness of Breath Physical Examination - Vital Signs Temperature: 98.3 F Blood Pressure: 154/58 Pulse: 89 Respirations: 25 Pulse Ox (%): 98 - Physical Exam General: Alert, Oriented x3 Respiratory: Clear to auscultation bilaterally, Diminished Cardiovascular: No edema, Regular rate/rhythm, Normal S1 S2 - Studies Medications List Reviewed: Yes Assessment And Plan - Current Problems (Diagnosis) (1) COPD exacerbation Current Visit: No Status: Acute Plan: Patient is 64 years of age admitted with COPD exacerbation is currently doing better anxiety is under control continue with Abilify citalopram and hydroxyzine for now Xanax as needed stable to be transferred to the floor
[2024-09-10 05:48] VITALS: BMI 19.3
[2024-09-10 07:29] VITALS: TEMP 97.7
--- NOTE | 2024-09-10 07:31 | P.PN ---
Date of Service: 09/09/24 Subjective Patient is clinically doing better. Symptoms are improved. However he does get tachycardic whenever he gets around and ambulates. Holding off on large doses of beta-dilan as he gets bradycardic at times as well. Currently he is Noninvasive ventilator arriving hopefully today and we can work on discharging him in the morning. Patient is been downgraded to [facility]. Physical Examination - Vital Signs Reviewed - Physical Exam General: Alert, In no apparent distress Respiratory: Diminished, Crackles/rales, Expiratory wheezes Cardiovascular: Regular rate/rhythm, Normal S1 S2, No murmurs Gastrointestinal: Normal bowel sounds, Soft and benign, Non-distended, No tenderness Musculoskeletal: No clubbing, No swelling, No tenderness Neurological: Other (No focal deficits) Assessment & Plan - Problems (Diagnosis) (1) Acute respiratory failure with hypoxia and hypercapnia Current Visit: Yes Status: Acute (2) COPD with acute exacerbation Current Visit: Yes Status: Acute (3) Bradycardia Current Visit: Yes Status: Acute (4) Hypotension Current Visit: Yes Status: Acute (5) Tobacco use Current Visit: No Status: Acute (6) Psoriasis Current Visit: Yes Status: Acute - Plan Continue with plan of care as mentioned below: 1. Acute hypoxic and hypercapnic respiratory failure; continue with BiPAP support as needed. Arranging for noninvasive ventilator at discharge. Start acetazolamide for hypercapnia respiratory failure. Continue with neb treatments and steroid neb treatments as scheduled. Appreciate pulmonary consultation. 2. Patient with hypotension with sepsis; on cefepime and vancomycin. Clinical status has improved and can downgrade to oral antibiotics if okay with pulmonary 3. History of alcoholism with anxiety disorder; on hydroxyzine for agitation as well as Xanax. Continue with multivitamin and patient was on Precedex drip. Will continue to monitor pulmonary status 4. History of PAD; history of right toe amputation and will continue antiplatelet therapy and statin therapy 5. Anemia; normocytic and normochromic; iron and B12 level pending as well as reticulocyte count 6. GI and DVT prophylaxis Discharge Plan: Home Plan to discharge in: Greater than 2 days - Advance Directives Does patient have a Living Will: No Does patient have a Durable POA for Healthcare: No
[2024-09-10 08:22] VITALS: BP 101/57
[2024-09-10 08:42] VITALS: O2SAT 96
[2024-09-10] MEDS: METOPROLOL TAR 25 MG TAB PO SCH (08:58)
== END 2024-09-10 10:13 | disposition home health service (06) | DRG 871 ==
LOC: ER 01:43 → ERHOLD 05:24 → 3RD-ICU 06:35 → 4TH 09-09 21:45
PROVIDERS: ADMIT Family Medicine; ATTEND Hospitalist
PROC: 3E033XZ Introduction of Vasopressor into Peripheral Vein, Percutaneous Approach (ICD-10-PCS; principal; 2024-09-03)
PROC: 4A033R1 Measurement of Arterial Saturation, Peripheral, Percutaneous Approach (ICD-10-PCS; 2024-09-03)
PROC: 5A09557 Assistance with Respiratory Ventilation, Greater than 96 Consecutive Hours, Continuous Positive Airway Pressure (ICD-10-PCS; 2024-09-03)
PROC: 5A0955A Assistance with Respiratory Ventilation, Greater than 96 Consecutive Hours, High Flow/Velocity Cannula (ICD-10-PCS; 2024-09-03)
PROC: 02HV33Z Insertion of Infusion Device into Superior Vena Cava, Percutaneous Approach (ICD-10-PCS; 2024-09-05)
DX: A41.9 Sepsis, unspecified organism (principal); J96.21 Acute and chronic respiratory failure with hypoxia; J96.22 Acute and chronic respiratory failure with hypercapnia; R65.21 Severe sepsis with septic shock; J44.1 Chronic obstructive pulmonary disease with (acute) exacerbation; F41.9 Anxiety disorder, unspecified; L40.9 Psoriasis, unspecified; D64.9 Anemia, unspecified; I73.9 Peripheral vascular disease, unspecified; F41.0 Panic disorder [episodic paroxysmal anxiety]; F17.210 Nicotine dependence, cigarettes, uncomplicated; R00.1 Bradycardia, unspecified; Z99.81 Dependence on supplemental oxygen; Z88.5 Allergy status to narcotic agent; Z11.52 Encounter for screening for COVID-19; Z79.52 Long term (current) use of systemic steroids; Z90.49 Acquired absence of other specified parts of digestive tract; Z79.899 Other long term (current) drug therapy; Z89.421 Acquired absence of other right toe(s)
CPT/HCPCS: 36415; 36600; 71045; 80048; 80053; 80076; 80202; 81003; 82550; 82805; 83605; 83690; 83735; 83880; 84132; 84439; 84443; 84484; 85025; 85610; 85730; 86140; 87040; 87428; 93005; 93306; 93971; 94640; 94660; 96365; 96366; 96367; 96375; 97116; 97161; 97530; 99285; J0692; J1650; J2270; J2405; J2919; J3370; J3411; J3535; J7030; J7040; J7050; J7512; J7613; J7626; J7644